=== PATIENT | male | born 1995 | race Caucasian/White ===

== ENCOUNTER 2022-02-25 09:32 | Inpatient (IN) | payer OTHER ==
[2022-02-25 10:58] LABS: ALT 27 U/L (4-49); AST 25 U/L (17-59); African American GFR (CKD) >90 (>60 ml/min/1.73 sqM); Albumin 4.6 g/dL (3.5-5.0); Alkaline Phosphatase 71 U/L (38-126); Anion Gap 9 mmol/L; Blood Urea Nitrogen 12 mg/dL (9-20); Calcium 9.2 mg/dL (8.4-10.2); Carbon Dioxide 25 mmol/L (22-30); Chloride 104 mmol/L (98-107); Glucose 144 mg/dL (74-99); Non-African American GFR(CKD) >90 (>60 ml/min/1.73 sqM); Potassium 3.5 mmol/L (3.5-5.1); Sodium 138 mmol/L (137-145); Total Bilirubin 1.4 mg/dL (0.2-1.3); Total Protein 7.5 g/dL (6.3-8.2)
[2022-02-25 11:12] LABS: Partial Thromboplastin Time 24.3 sec (22.0-30.0); Prothrombin Time 10.7 sec (9.0-12.0)
[2022-02-25 11:13] LABS: Anisocytosis Slight; HCT 34.5 % (39.0-53.0); MCH 31.3 pg (25.0-35.0); MCHC 34.7 g/dL (31.0-37.0); MCV 90.3 fL (80.0-100.0); Mean Platelet Volume 8.9; Poikilocytosis Slight; RBC 3.82 m/uL (4.30-5.90); RDW 17.2 % (11.5-15.5)
[2022-02-25 11:37] LABS: Platelet Count 36 k/uL (150-450)
--- NOTE | 2022-02-25 11:43 | XR ---
EXAMINATION TYPE: XR chest 2V DATE OF EXAM: 02/25/2022 COMPARISON: Chest x-ray September 11, 2011 HISTORY: Coughing and shortness of breath. TECHNIQUE: Frontal and lateral views of the chest are obtained. FINDINGS: There is no suspicious new focal air space opacity, pleural effusion, or pneumothorax seen . The cardiac silhouette size remains within normal limits. The osseous structures are intact. IMPRESSION: No new suspicious acute pulmonary process.
[2022-02-25 12:16] LABS: Band Neutrophils % 1 %; Metamyelocytes # (M) 0.26 k/uL (0); Metamyelocytes % 1 %; Myelocytes # (M) 0.26 k/uL (0); Myelocytes % 1 %; Neutrophils % (M) 12 %
[2022-02-25 12:30] LABS: Blast Cells # (M) 9.69 k/uL (0); Eosinophils # (M) 0.51 k/uL (0-0.7); Lymphocytes # (M) 6.38 k/uL (1.0-4.8); Monocytes # (M) 5.87 k/uL (0-1.0); Nucleated Red Blood Cells 1 /100 WBC (0-0); Total Cells Counted 200; WBC 25.5 k/uL (3.8-10.6)
[2022-02-25 12:33] LABS: Polychromasia Present
--- NOTE | 2022-02-25 12:47 | ED ---
Recheck HPI - General Chief Complaint: Recheck/Abnormal Lab/Rx Stated Complaint: abnormal labs Time Seen by Provider: 02/25/22 10:05 Source: patient, family, RN notes reviewed Mode of arrival: wheelchair Limitations: no limitations - History of Present Illness Initial Comments: This is a 26-year-old male who presents to the emergency department for low p latelets. He was told that on lab work yesterday, his platelet count was low and he needed to come to the emergency department for further evaluation. He was diagnosed with pneumonia clinically a week ago and given a course of Augmentin, steroids, and an inhaler. Patient states that his breathing is improved. He also states that he is feeling very weak. There is a family history of ITP in his grandmother. He has noted over the last week that he has been developing red spots on his chest and arms. Patient denies any fevers, chills, sore throat, visual changes, cough, dyspnea, chest pain, palpitations, abdominal pain, nausea, vomiting, diarrhea, constipation, dysuria, hematuria, back pain, or headaches. MD Complaint: abnormal lab - Related Data Home Medications Medication Instructions Recorded Confirmed No Known Home Medications 02/25/22 02/25/22 Allergies Allergy/AdvReac Type Severity Reaction Status Date / Time No Known Allergies Allergy Verified 02/25/22 13:16 Review of Systems ROS Statement: Those systems with pertinent positive or pertinent negative responses have been documented in the HPI. ROS Other: All systems not noted in ROS Statement are negative. Past Medical History Past Medical History: No Reported History History of Any Multi-Drug Resistant Organisms: None Reported Past Surgical History: Adenoidectomy, Tonsillectomy Past Psychological History: Anxiety Smoking Status: Never smoker Past Alcohol Use History: None Reported, Occasional Past Drug Use History: None Reported General Exam Limitations: no limitations General appearance: alert, anxious Head exam: Present: atraumatic, normocephalic, normal inspection ENT exam: Present: normal exam, mucous membranes moist Neck exam: Present: normal inspection. Absent: tenderness, meningismus, lymphadenopathy Respiratory exam: Present: normal lung sounds bilaterally. Absent: respiratory distress, wheezes, rales, rhonchi, stridor Cardiovascular Exam: Present: regular rate, normal rhythm, normal heart sounds. Absent: systolic murmur, diastolic murmur, rubs, gallop, clicks Neurological exam: Present: alert, oriented X3, CN II-XII intact Skin exam: Present: other (Petechiae on the chest and arms bilaterally) Course Vital Signs 02/25/22 02/25/22 09:54 11:18 Temperature 98.1 F Pulse Rate 119 H 115 H Respiratory 18 16 Rate Blood Pressure 150/87 172/88 O2 Sat by Pulse 98 96 Oximetry Procedures - [place] Protocol (Time Out) Nurse: Laura Rosas Medical Decision Making - Medical Decision Making This is a 26-year-old male who presents to the emergency department for thrombocytopenia. Lab work was redrawn in the emergency department revealing blast cells of 38. We were contacted by the lab, who notes concern for a new diagnosis of leukemia. I spoke with hematology/oncology, Dr. Almanza, who requested the patient be admitted with plan for bone marrow biopsy on 02/27/2022. There are strict instructions to avoid any sort of steroid or platelet transfusions for the mean time. This case was discussed in detail with the attending ED physician. Presentation, findings, and treatment plan discussed in detail as well. - Lab Data Result diagrams: 02/25/22 10:35 02/25/22 10:35 Lab Results 02/25/22 02/25/22 02/25/22 Range/Units 10:35 10:35 10:35 WBC 25.5 H (3.8-10.6) k/uL RBC 3.82 L (4.30-5.90) m/uL Hgb 12.0 L (13.0-17.5) gm/dL Hct 34.5 L (39.0-53.0) % MCV 90.3 (80.0-100.0) fL MCH 31.3 (25.0-35.0) pg MCHC 34.7 (31.0-37.0) g/dL RDW 17.2 H (11.5-15.5) % Plt Count 36 L (150-450) k/uL MPV 8.9 Neutrophils % (Manual) 12 % Band Neuts % (Manual) 1 % Lymphocytes % (Manual) 25 % Monocytes % (Manual) 23 % Eosinophils % (Manual) 2 % Metamyelocytes % 1 % Myelocytes % 1 % Blast Cells % 38 H* % Neutrophils # (Manual) 3.30 (1.3-7.7) k/uL Lymphocytes # (Manual) 6.38 H (1.0-4.8) k/uL Monocytes # (Manual) 5.87 H (0-1.0) k/uL Eosinophils # (Manual) 0.51 (0-0.7) k/uL Metamyelocytes # (Man) 0.26 H (0) k/uL Myelocytes # (Manual) 0.26 H (0) k/uL Blast Cells # (Man) 9.69 H (0) k/uL Nucleated RBCs 1 H (0-0) /100 WBC Manual Slide Review Performed Polychromasia Present Poikilocytosis Slight Anisocytosis Slight PT 10.7 (9.0-12.0) sec INR 1.0 (<1.2) APTT 24.3 (22.0-30.0) sec Sodium 138 (137-145) mmol/L Potassium 3.5 (3.5-5.1) mmol/L Chloride 104 (98-107) mmol/L Carbon Dioxide 25 (22-30) mmol/L Anion Gap 9 mmol/L BUN 12 (9-20) mg/dL Creatinine 0.94 (0.66-1.25) mg/dL Est GFR (CKD-EPI)AfAm >90 (>60 ml/min/1.73 sqM) Est GFR (CKD-EPI)NonAf >90 (>60 ml/min/1.73 sqM) Glucose 144 H (74-99) mg/dL Calcium 9.2 (8.4-10.2) mg/dL Total Bilirubin 1.4 H (0.2-1.3) mg/dL AST 25 (17-59) U/L ALT 27 (4-49) U/L Alkaline Phosphatase 71 (38-126) U/L Total Protein 7.5 (6.3-8.2) g/dL Albumin 4.6 (3.5-5.0) g/dL Disposition Clinical Impression: Leukocytosis, Thrombocytopenia Disposition: ADMITTED IP TO THIS HOSP Referrals: Usama Camejo MD [Primary Care Provider] - 1-2 days
[2022-02-25] MEDS ORDERED: NALOXONE 0.4 MG/ML 1 ML VIAL IV PRN (12:55)
[2022-02-25] MEDS ORDERED: LORazepam 0.5 MG TAB PO PRN (12:55)
[2022-02-25] MEDS ORDERED: ONDANSETRON 4 MG/2 ML VIAL IVP PRN (12:55)
--- NOTE | 2022-02-25 13:34 | P.HPIM ---
History of Present Illness H&P Date: 02/25/22 Chief Complaint: Sent in by PCP for abnormal blood work Patient is a 26-year-old male with no significant past medical history who went to go see his PCP because he has been battling a cold for a month and had chest pains. He was diagnosed with pneumonia and was started on antibiotics which he completed. PCP and also ordered blood work that showed thrombocytopenia so was told to come into the ED. In the ED labs revealed platelet count of 36 and WBC 25.5 with 38% blasts and predominantly lymphocytes. Chest x-ray was negative for any acute process. ED personnel did speak with oncology who recommended to admit the patient and not to give him any platelet transfusion or steroids and plan is for biopsy on Sunday. Patient states that he did take one dose of prednisone yesterday that was prescribed by his PCP. Patient states that he does have chills but denies any fevers. He denies any diaphoresis at nighttime. Review of Systems 10 ROS reviewed and are negative except as noted in HPI Past Medical History Past Medical History: No Reported History History of Any Multi-Drug Resistant Organisms: None Reported Past Surgical History: Adenoidectomy, Tonsillectomy Past Psychological History: Anxiety Smoking Status: Never smoker Past Alcohol Use History: None Reported, Occasional Past Drug Use History: None Reported Medications and Allergies Home Medications Medication Instructions Recorded Confirmed Type No Known Home Medications 02/25/22 02/25/22 History Allergies Allergy/AdvReac Type Severity Reaction Status Date / Time No Known Allergies Allergy Verified 02/25/22 13:16 Physical Exam Osteopathic Statement: *. No significant issues noted on an osteopathic structural exam other than those noted in the History and Physical/Consult. Vitals: Vital Signs Temp Pulse Resp BP Pulse Ox 02/25/22 11:18 115 H 16 172/88 96 02/25/22 09:54 98.1 F 119 H 18 150/87 98 Intake and Output 02/24/22 02/25/22 02/25/22 22:59 06:59 14:59 Other: Weight 115.666 kg General: [Alert and oriented, well nourished, no acute distress]. Eye: [PERRL, EOMI, normal conjunctiva]. HENT: [Normocephalic, clear tympanic membranes, normal hearing, moist oral mucosa, no scleral icterus, no sinus tenderness]. Neck: [Supple, non-tender, no carotid bruits, no JVD, no lymphadenopathy]. Lungs: [Clear to auscultation and percussion, non-labored respiration]. Heart: [Normal rate, regular rhythm, no murmur, gallop or edema]. Abdomen: [Soft, non-tender, non-distended, normal bowel sounds, no masses]. Musculoskeletal: [Normal range of motion and strength, no tenderness or sw elling]. Skin: [Skin is warm, dry and pink, no rashes or lesions]. Neurologic: [Awake, alert, and oriented X3, CN II-XII intact]. Psychiatric: [Cooperative, appropriate mood and affect]. Results CBC & Chem 7: 02/25/22 10:35 02/25/22 10:35 Labs: Abnormal Lab Results - Last 24 Hours (Table) 02/25/22 02/25/22 Range/Units 10:35 10:35 WBC 25.5 H (3.8-10.6) k/uL RBC 3.82 L (4.30-5.90) m/uL Hgb 12.0 L (13.0-17.5) gm/dL Hct 34.5 L (39.0-53.0) % RDW 17.2 H (11.5-15.5) % Plt Count 36 L (150-450) k/uL Blast Cells % 38 H* % Lymphocytes # (Manual) 6.38 H (1.0-4.8) k/uL Monocytes # (Manual) 5.87 H (0-1.0) k/uL Metamyelocytes # (Man) 0.26 H (0) k/uL Myelocytes # (Manual) 0.26 H (0) k/uL Blast Cells # (Man) 9.69 H (0) k/uL Nucleated RBCs 1 H (0-0) /100 WBC Glucose 144 H (74-99) mg/dL Total Bilirubin 1.4 H (0.2-1.3) mg/dL Assessment and Plan Assessment: #Leukocytosis with elevated blast cells #Thrombocytopenia -Concerning for acute leukemia -Oncology consult -Plan for biopsy on Sunday -Per oncology instructions no steroids and no platelet transfusion CODE STATUS:full code DVT prophylaxis: mechanical Discussed with: Patient, ER, rn Anticipated length of stay > than [address]: home A total of 75 minutes was spent on the care of this complex patient more than 50% of the time was spent in counseling and care coordination.
--- NOTE | 2022-02-25 20:45 | P.CONS ---
History of Present Illness - Reason for Consult Consult date: 02/25/22 Blasts Requesting physician: Ainsley Campos - Chief Complaint URI that wont get better - History of Present Illness Akira is a pleasant 26 year old male patient presenting to ER at the direction of PCP for Thrombocytopenia and Leukocytosis, Differential shows blasts of 36%. He originally seen PCP last month for URI, treated with antibiotics and steroids, although was not improving so he represented for follow-up with PCP who paz labs and then directed him here for further eval when they did not improve. Mom at bedside. Akira is otherwise healthy without any significant personal history. Review of Systems All systems: negative Constitutional: Reports as per HPI Past Medical History Past Medical History: No Reported History History of Any Multi-Drug Resistant Organisms: None Reported Past Surgical History: Adenoidectomy, Tonsillectomy Past Psychological History: Anxiety Smoking Status: Never smoker Past Alcohol Use History: None Reported, Occasional Past Drug Use History: None Reported - Past Family History Mother Family Medical History: Cancer Additional Family Medical History / Comment(s): breast CA Medications and Allergies Home Medications Medication Instructions Recorded Confirmed Type No Known Home Medications 02/25/22 02/25/22 History Allergies Allergy/AdvReac Type Severity Reaction Status Date / Time No Known Allergies Allergy Verified 02/25/22 13:16 Physical Exam Vitals: Vital Signs Temp Pulse Pulse Resp BP BP Pulse Ox 02/25/22 13:45 98.7 F 94 16 140/88 98 02/25/22 11:18 115 H 16 172/88 96 02/25/22 09:54 98.1 F 119 H 18 150/87 98 Intake and Output 02/24/22 02/25/22 02/25/22 22:59 06:59 14:59 Other: Weight 115.666 kg - Constitutional General appearance: cooperative - EENT Eyes: EOMI ENT: NA/AT - Respiratory Respiratory: bilateral: CTA - Cardiovascular Rhythm: regular - Gastrointestinal General gastrointestinal: soft - Integumentary Integumentary: pale - Neurologic Neurologic: CNII-XII intact - Musculoskeletal Musculoskeletal: generalized weakness, strength equal bilaterally - Psychiatric Psychiatric: A&O x's 3, appropriate affect, intact judgment & insight Results CBC & Chem 7: 02/25/22 10:35 02/25/22 10:35 Labs: Abnormal Lab Results - Last 24 Hours (Table) 02/25/22 02/25/22 Range/Units 10:35 10:35 WBC 25.5 H (3.8-10.6) k/uL RBC 3.82 L (4.30-5.90) m/uL Hgb 12.0 L (13.0-17.5) gm/dL Hct 34.5 L (39.0-53.0) % RDW 17.2 H (11.5-15.5) % Plt Count 36 L (150-450) k/uL Blast Cells % 38 H* % Lymphocytes # (Manual) 6.38 H (1.0-4.8) k/uL Monocytes # (Manual) 5.87 H (0-1.0) k/uL Metamyelocytes # (Man) 0.26 H (0) k/uL Myelocytes # (Manual) 0.26 H (0) k/uL Blast Cells # (Man) 9.69 H (0) k/uL Nucleated RBCs 1 H (0-0) /100 WBC Glucose 144 H (74-99) mg/dL Total Bilirubin 1.4 H (0.2-1.3) mg/dL Chest x-ray: report reviewed Assessment and Plan (1) Leukocytosis Narrative/Plan: Increased Monocytes, Myelocytes,Lymphocytes, increased Blasts on peripheral smear, Current Visit: Yes Status: Acute Code(s): D72.829 - ELEVATED WHITE BLOOD CELL COUNT, UNSPECIFIED SNOMED Code(s): 470305874 (2) Thrombocytopenia Narrative/Plan: NO ASA, AC therapy, NSAIDS. Current Visit: Yes Status: Acute Code(s): D69.6 - THROMBOCYTOPENIA, UNSPECIFIED SNOMED Code(s): 897672539 Plan: Unfortunately picture is concerning for a primary bone marrow malignancy, Bone marrow biopsy will be needed to obtain a definitive diagnosis and will attempt to set up on Sunday around noon versus Sunday in am. We discussed BM biopsy, concerns, and expected result times. All questions answered
[2022-02-26 07:36] LABS: Anisocytosis Slight; HCT 32.7 % (39.0-53.0); MCH 31.2 pg (25.0-35.0); MCHC 33.7 g/dL (31.0-37.0); MCV 92.7 fL (80.0-100.0); Mean Platelet Volume 8.3; Poikilocytosis Slight; RBC 3.53 m/uL (4.30-5.90); RDW 17.4 % (11.5-15.5)
[2022-02-26 07:41] LABS: Platelet Count 29 k/uL (150-450)
[2022-02-26 08:49] LABS: Myelocytes % 2 %; Neutrophils % (M) 2 %; Nucleated Red Blood Cells 1 /100 WBC (0-0); Total Cells Counted 200
[2022-02-26 08:50] LABS: Blast Cells # (M) 9.36 k/uL (0); Eosinophils # (M) 1.56 k/uL (0-0.7); Lymphocytes # (M) 7.54 k/uL (1.0-4.8); Monocytes # (M) 6.76 k/uL (0-1.0); Myelocytes # (M) 0.52 k/uL (0); Neutrophils # (M) 0.52 k/uL (1.3-7.7)
[2022-02-26 08:52] LABS: Polychromasia Present
--- NOTE | 2022-02-26 08:56 | US ---
EXAMINATION TYPE: US abdomen complete DATE OF EXAM: 02/26/2022 COMPARISON: NONE CLINICAL HISTORY: Assess liver and Spleen Concern Malignancy. Leukocytosis. Pt states no symptoms EXAM MEASUREMENTS: Liver Length: 15.4 cm Gallbladder Wall: 0.23 cm CBD: 0.25 cm Spleen: 15.4 cm Right Kidney: 10.7 x 5.8 x 5.3 cm Left Kidney: 11.3 x 6.1 x 6.2 cm Pancreas: Obscured by bowel gas Liver: heterogeneous suggestive of fatty infiltration Gallbladder: non-shadowing echogenic foci measuring 0.5 x 0.5 x 0.6 cm Evidence for sonographic Florence's sign: No CBD: wnl Spleen: Spleen is slightly enlarged measuring 15.4 cm Right Kidney: Dilated renal pelvis measuring 1.1cm Left Kidney: wnl Upper IVC: wnl Abd Aorta: wnl Pancreas suboptimally seen on initial images due to overlying bowel gas. The visualized liver is hete rogeneously hyperechoic. Evaluation for focal masses suboptimal due to the heterogeneity. The intrahe patic portion of the IVC and visualized abdominal aorta are within normal limits. Gallbladder has 5 m m nonshadowing hyperechoic focus favoring polyp. No shadowing mobile gallstones. No biliary dilatatio n. The spleen is unremarkable. Kidneys are symmetric and normal in size. Prominent central right r enal pelvis without calyceal dilatation is consistent with extrarenal pelvis. Splenomegaly is seen me asuring 15.4 cm in long axis without focal splenic mass. No surrounding ascites. IMPRESSION: Confirmation of splenomegaly. Heterogeneous hyperechoic appearance of liver is consistent with diffuse fatty infiltration and/or underlying hepatocellular disease. Liver size felt within nor mal limits. No ascites currently.
[2022-02-26 10:09] LABS: African American GFR (CKD) 119.9 (60.0-200.0); Anion Gap 11.4 mmol/L (10.00-18.00); BUN/Creat Ratio 11.9 Ratio (12.00-20.00); Blood Urea Nitrogen 11.9 mg/dL (9.0-27.0); Calcium 9.2 mg/dL (8.7-10.3); Carbon Dioxide 23.6 mmol/L (20.0-27.5); Magnesium 2.2 mg/dL (1.5-2.4); Non-African American GFR(CKD) 103.4 (60.0-200.0); Phosphorus 4.4 mg/dL (2.4-5.1); Potassium 4.2 mmol/L (3.5-5.5); Uric Acid 6.5 mg/dL (3.7-8.7)
--- NOTE | 2022-02-26 13:13 | P.PN ---
Subjective Progress Note Date: 02/26/22 Principal diagnosis: Leukocytosis with elevated blast cells and thrombocytopenia Patient is having any acute complaints this morning. Mother was at bedside. Mother and patient are aware that he may have leukemia and understand that it is a type of blood cancer. Objective - Vital Signs Vital signs: Vital Signs Temp 98 F 02/26/22 04:47 Pulse 92 02/26/22 04:47 Resp 18 02/26/22 04:47 BP 162/80 02/26/22 04:47 Pulse Ox 99 02/26/22 04:47 Intake & Output 02/25/22 02/26/22 02/26/22 18:59 06:59 18:59 Intake Total 300 540 118 Balance 300 540 118 Weight 115.666 kg Intake: Oral 300 540 118 Other: Voiding Method Toilet Toilet # Voids 4 - Exam General examination - Alert and Oriented 3 in NAD Heart - + S1S2 no murmurs Lungs - Clear to auscultation Abdomen soft NT ND +ve BS Extremities - No edema BRICK SHADER - Moving all 4 extremities spontaneously Psych - Calm and cooperative - Labs CBC & Chem 7: 02/26/22 06:41 02/26/22 06:41 Labs: Abnormal Lab Results - Last 24 Hours (Table) 02/26/22 02/26/22 Range/Units 06:41 06:41 WBC 26.0 H (3.8-10.6) k/uL RBC 3.53 L (4.30-5.90) m/uL Hgb 11.0 L (13.0-17.5) gm/dL Hct 32.7 L (39.0-53.0) % RDW 17.4 H (11.5-15.5) % Plt Count 29 L (150-450) k/uL Blast Cells % 36 H* % Neutrophils # (Manual) 0.52 L (1.3-7.7) k/uL Lymphocytes # (Manual) 7.54 H (1.0-4.8) k/uL Monocytes # (Manual) 6.76 H (0-1.0) k/uL Eosinophils # (Manual) 1.56 H (0-0.7) k/uL Myelocytes # (Manual) 0.52 H (0) k/uL Blast Cells # (Man) 9.36 H (0) k/uL Nucleated RBCs 1 H (0-0) /100 WBC BUN/Creatinine Ratio 11.90 L (12.00-20.00) Ratio Lactate Dehydrogenase 737 H (120-246) U/L Assessment and Plan Assessment: #Leukocytosis with elevated blast cells #Thrombocytopenia -Concerning for acute leukemia -Oncology consult -Plan for biopsy on Sunday -Per oncology instructions no steroids and no platelet transfusion CODE STATUS:full code DVT prophylaxis: mechanical Discussed with: Patient, ER, rn Anticipated length of stay > than [address]: home A total of 75 minutes was spent on the care of this complex patient more than 50% of the time was spent in counseling and care coordination.
[2022-02-26 22:59] LABS: Rheumatoid Factor, Qnt <10 IU/mL (0-15)
[2022-02-27 06:45] LABS: Anisocytosis Slight; HCT 29.5 % (39.0-53.0); HGB 10.2 gm/dL (13.0-17.5); MCH 31.7 pg (25.0-35.0); MCHC 34.5 g/dL (31.0-37.0); MCV 91.8 fL (80.0-100.0); Platelet Count 31 k/uL (150-450); Poikilocytosis Slight; RBC 3.22 m/uL (4.30-5.90); RDW 17.1 % (11.5-15.5); WBC 18.8 k/uL (3.8-10.6)
[2022-02-27 10:23] LABS: Prothrombin Time 11.1 sec (9.0-12.0)
--- NOTE | 2022-02-27 10:56 | P.PN ---
Subjective Progress Note Date: 02/27/22 Principal diagnosis: Leukocytosis with elevated blast cells and thrombocytopenia Mom is wondering why the patient is so fatigued. She is also wondering why he has a persistent cough. I told him that it is likely due to leukemia which is being worked up for. I also discussed the case with oncology who said they will try to do biopsy today or tomorrow. Objective - Vital Signs Vital signs: Vital Signs Temp 98.4 F 02/27/22 05:00 Pulse 86 02/27/22 05:00 Resp 18 02/27/22 05:00 BP 135/88 02/27/22 05:00 Pulse Ox 99 02/27/22 05:00 FiO2 Intake & Output 02/26/22 02/27/22 02/27/22 18:59 06:59 18:59 Intake Total 1436 0 10 Balance 1436 0 10 Intake: IV 10 Invasive Line 1 10 Oral 1436 0 Other: Voiding Method Toilet # Voids 4 2 - Exam General examination - Alert and Oriented 3 in NAD Heart - + S1S2 no murmurs Lungs - Clear to auscultation Abdomen soft NT ND +ve BS Extremities - No edema JUVENILE JUSTICE SPECIALIST - Moving all 4 extremities spontaneously Psych - Calm and cooperative - Labs CBC & Chem 7: 02/27/22 05:38 02/26/22 06:41 Labs: Abnormal Lab Results - Last 24 Hours (Table) 02/25/22 02/26/22 02/27/22 Range/Units 10:35 06:41 05:38 WBC 18.8 H (3.8-10.6) k/uL RBC 3.22 L (4.30-5.90) m/uL Hgb 10.2 L (13.0-17.5) gm/dL Hct 29.5 L (39.0-53.0) % RDW 17.1 H (11.5-15.5) % Plt Count 31 L (150-450) k/uL Pathologist Review See comment A C-Reactive Protein 1.00 H (0.00-0.80) mg/dL Assessment and Plan Assessment: #Leukocytosis with elevated blast cells #Thrombocytopenia -Concerning for acute leukemia -Oncology consult -Plan for biopsy on today or tomorrow by oncology -Per oncology instructions no steroids and no platelet transfusion CODE STATUS:full code DVT prophylaxis: mechanical Discussed with: Patient, ER, rn Anticipated length of stay > than [address]: home A total of 75 minutes was spent on the care of this complex patient more than 50% of the time was spent in counseling and care coordination.
[2022-02-27 11:00] LABS: Band Neutrophils % 1 %; Basophils # (M) 0.19 k/uL (0-0.2); Blast Cells # (M) 2.82 k/uL (0); Myelocytes # (M) 0.19 k/uL (0); Myelocytes % 1 %; Neutrophils % (M) 17 %; Nucleated Red Blood Cells 0 /100 WBC (0-0); Plasma Cells # (M) 0.19 k/uL (0)
[2022-02-27] MEDS ORDERED: PROPOFOL 10 MG/ML 20 ML VIAL IV ONE (12:02)
[2022-02-27] MEDS ORDERED: LACTATED RINGERS 1,000 ML IV ONE (12:04)
[2022-02-27 12:08] LABS: Lymphocytes # (M) 7.52 k/uL (1.0-4.8); Metamyelocytes # (M) 0.19 k/uL (0); Metamyelocytes % 1 %; Monocytes # (M) 3.57 k/uL (0-1.0); Total Cells Counted 200
--- NOTE | 2022-02-27 12:32 | P.PCN ---
Date of Procedure: 02/27/22 Preoperative Diagnosis: Leucocytosis, bicytopenia, suspected acute leukemia Postoperative Diagnosis: Same Procedure(s) Performed: Bone marrow aspiration and biopsy Anesthesia: MAC Surgeon: Ganesh Keith Brake Repairer #1: Stated None Estimated Blood Loss (ml): 2 Pathology: other Condition: stable Disposition: floor Indications for Procedure: Patient presenting with leukocytosis, lost her peripheral smear, bicytopenia, suspected acute leukemia procedure done for diagnosis. Operative Findings: Adequate samples Description of Procedure: The procedure was discussed in detail with the patient and his family on the floor. Informed consent was obtained from the floor. He then presented to the outpatient endoscopy suite.In the left lateral decubitus position. The area over both posterior iliac crest was prepped with chlorhexidine and sterile draping. IV sedation initiated. Local anesthesia was administered to the right posterior iliac crest. A Jamshidi needle was then inserted and bone marrow asp irate and biopsy obtained. On withdrawal of the needle hemostasis was easily achieved. Blood loss was minimal and recovery from sedation was satisfactory, other than some issues with upper airway secretions, that were appropriately managed by anesthesia.. He appeared to have tolerated the procedure well without any obvious immediate complications.
[2022-02-27 13:08] LABS: Reticulocyte % 3.8 % (0.5-2.0)
[2022-02-27] MEDS: guaiFENesin SYRUP 100MG/5ML 200 MG/10 ML CUP PO PRN ×2 (13:20→19:12)
--- NOTE | 2022-02-27 13:40 | P.PN ---
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 Dr. Keith had a long discussion with patient and mother and father regarding likelihood of acute leukemia. Bone marrow was also performed today Objective - Vital Signs Vital signs: Vital Signs Temp 98.5 F 02/27/22 12:57 Pulse 109 H 02/27/22 12:57 Resp 18 02/27/22 12:57 BP 146/76 02/27/22 12:57 Pulse Ox 93 L 02/27/22 12:57 FiO2 Intake & Output 02/26/22 02/27/22 02/27/22 18:59 06:59 18:59 Intake Total 1436 0 210 Balance 1436 0 210 Intake: IV 210 Invasive Line 1 10 Oral 1436 0 Other: Voiding Method Toilet # Voids 4 2 - Labs CBC & Chem 7: 02/27/22 05:38 02/26/22 06:41 Labs: Abnormal Lab Results - Last 24 Hours (Table) 02/25/22 02/26/22 02/27/22 Range/Units 10:35 06:41 05:38 WBC 18.8 H (3.8-10.6) k/uL RBC 3.22 L (4.30-5.90) m/uL Hgb 10.2 L (13.0-17.5) gm/dL Hct 29.5 L (39.0-53.0) % RDW 17.1 H (11.5-15.5) % Plt Count 31 L (150-450) k/uL Blast Cells % 15 H* % Lymphocytes # (Manual) 7.52 H (1.0-4.8) k/uL Monocytes # (Manual) 3.57 H (0-1.0) k/uL Eosinophils # (Manual) 1.50 H (0-0.7) k/uL Metamyelocytes # (Man) 0.19 H (0) k/uL Myelocytes # (Manual) 0.19 H (0) k/uL Blast Cells # (Man) 2.82 H (0) k/uL Plasma Cell # (Manual) 0.19 H (0) k/uL Pathologist Review See comment A Retic Count (0.5-2.0) % C-Reactive Protein 1.00 H (0.00-0.80) mg/dL 02/27/22 Range/Units 05:38 WBC (3.8-10.6) k/uL RBC (4.30-5.90) m/uL Hgb (13.0-17.5) gm/dL Hct (39.0-53.0) % RDW (11.5-15.5) % Plt Count (150-450) k/uL Blast Cells % % Lymphocytes # (Manual) (1.0-4.8) k/uL Monocytes # (Manual) (0-1.0) k/uL Eosinophils # (Manual) (0-0.7) k/uL Metamyelocytes # (Man) (0) k/uL Myelocytes # (Manual) (0) k/uL Blast Cells # (Man) (0) k/uL Plasma Cell # (Manual) (0) k/uL Pathologist Review Retic Count 3.8 H (0.5-2.0) % C-Reactive Protein (0.00-0.80) mg/dL Assessment and Plan (1) Leukocytosis Narrative/Plan: Increased Monocytes, Myelocytes,Lymphocytes, increased Blasts on peripheral smear, Current Visit: Yes Status: Acute Code(s): D72.829 - ELEVATED WHITE BLOOD CELL COUNT, UNSPECIFIED SNOMED Code(s): 320159944 (2) Thrombocytopenia Narrative/Plan: NO ASA, AC therapy, NSAIDS. Current Visit: Yes Status: Acute Code(s): D69.6 - THROMBOCYTOPENIA, UNSPE CIFIED SNOMED Code(s): 723868314 (3) Coagulopathy Current Visit: Yes Status: Acute Code(s): D68.9 - COAGULATION DEFECT, UNSPECIFIED SNOMED Code(s): 63011154 Plan: Recheck Coags, Uric acid, LDD and CBC CMP daily Bone marrow biopsy today Long discussion with patient and family regarding liklihood of an acute leukemia , plan to obtain echo and picc in preparation for induction. Dr. Waller: I have completed the full history and physical and developed the above impression and plan, agree with dictation, dictated as a scribe.
[2022-02-27 14:26] LABS: T Helper Cell (CD4) >3000 cell/ul (443-1471); T Helper Cell (CD4) % 60 % (35-66); T Suppressor Cell (CD8) 963 cell/ul (190-832); T Suppressor Cell (CD8) % 18 % (9-37); T4/T8 Ratio (CD4:CD8) 3.4 (1.0-3.7)
[2022-02-27 14:58] LABS: Prothrombin Time 11.1 sec (9.0-12.0)
--- NOTE | 2022-02-27 18:49 | CA ---
Transthoracic Echo Report Name: Akira Sultana Age: 26 Gender: M : 1995 Exam Date: 02/27/2022 15:15 Exam Location: [facility] Ht (in): 62 Wt (lb): 255 Ordering Physician: Jasmyne Casillas Attending/Referring Phys: Solution Developer Ivonne Scott RDCS Procedure CPT: Indications: preparation for chemo Cardiac Hx: Pre Chemo Technical Quality: Good Contrast 1: N/A Total Dose (mL): Contrast 2: Total Dose (mL): MEASUREMENTS (Male / Female) Normal Values 2D ECHO LV Diastolic Diameter PLAX 4.9 cm 4.2 - 5.9 / 3.9 - 5.3 cm LV Systolic Diameter PLAX 3.6 cm IVS Diastolic Thickness 1.0 cm 0.6 - 1.0 / 0.6 - 0.9 cm LVPW Diastolic Thickness 1.2 cm 0.6 - 1.0 / 0.6 - 0.9 cm LV Relative Wall Thickness 0.4 RV Internal Dim ED PLAX 2.9 cm LA Systolic Diameter LX 3.7 cm 3.0 - 4.0 / 2.7 - 3.8 cm LA Volume 55.3 cm??? 18 - 58 / 22 - 52 cm??? M-MODE Aortic Root Diameter MM 3.2 cm LA Systolic Diameter MM 3.4 cm LA Ao Ratio MM 1.1 MV E Point Septal Separation 0.2 cm AV Cusp Separation MM 2.5 cm DOPPLER MV Area PHT 4.1 cm??? Mitral E Point Velocity 88.6 cm/s Mitral A Point Velocity 91.0 cm/s Mitral E to A Ratio 1.0 MV Deceleration Time 183.8 ms MV E' Velocity 7.6 cm/s Mitral E to MV E' Ratio 11.7 FINDINGS Left Ventricle Normal Left ventricular size, wall thickness, systolic function with no obvious regional wall motion abnormalities. Normal Left ventricular diastolic filling pattern. Right Ventricle Normal right ventricular size and function. Normal right ventricular size and function. Right ventricular systolic pressure within normal limits. Right Atrium Normal right atrial size. Left Atrium Left atrial size at the upper limits of normal. Mitral Valve Trace mitral regurgitation. Aortic Valve Trileaflet aortic valve. Tricuspid Valve Trace tricuspid regurgitation. Pulmonic Valve Structurally normal pulmonic valve. Pericardium No pleural effusion. Aorta Normal size aortic root and proximal ascending aorta. CONCLUSIONS Normal LV systolic function without segmental wall motion abnormalities Normal RV size and systolic function No significant valvular abnormalities Previewed by: Dr. Rip Campos MD (Electronically Signed) Final Date: 27 Feb 2022 18:48
[2022-02-28] MEDS: guaiFENesin SYRUP 100MG/5ML 200 MG/10 ML CUP PO PRN ×2 (08:48→18:46)
[2022-02-28 08:52] LABS: Vit B1(Thiamine) 82 ug/L (38-122)
[2022-02-28 09:28] LABS: Methylmalonic Acid 0.83 umol/L (<0.40)
[2022-02-28] MEDS ORDERED: LIDOCAINE 1% INJ 10MG/ML (5 ML VIAL-PF) SQ ONE (09:39)
[2022-02-28 09:47] LABS: Phosphorus 4.7 mg/dL (2.4-5.1)
[2022-02-28 09:54] LABS: African American GFR (CKD) 119.9 (60.0-200.0); Albumin 4.2 g/dL (3.8-4.9); Albumin/Globulin Ratio 1.83 (1.60-3.17); Anion Gap 11.5 mmol/L (10.00-18.00); BUN/Creat Ratio 12.7 Ratio (12.00-20.00); Blood Urea Nitrogen 12.7 mg/dL (9.0-27.0); Carbon Dioxide 23.5 mmol/L (20.0-27.5); Globulin 2.3 g/dL (1.6-3.3); Non-African American GFR(CKD) 103.4 (60.0-200.0); Potassium 4.2 mmol/L (3.5-5.5); Total Bilirubin 1.5 mg/dL (0.30-1.20); Total Protein 6.5 g/dL (6.2-8.2)
[2022-02-28 10:16] LABS: HCT 29.2 % (39.6-50.0); HGB 9.5 g/dL (13.0-17.0); MCH 30.6 pg (27.0-32.0); MCHC 32.5 g/dL (32.0-37.0); MCV 94.2 fL (80.0-97.0); NRBC Per 100 WBC 0.3 /100 WBCS (0.0-0.0); Platelet Count 25 X 10*3/uL (140-440); WBC 15.79 X 10*3/uL (4.50-10.00)
[2022-02-28 10:54] LABS: Basophils # (M) 0 X 10*3/uL (0.00-0.10); Eosinophils # (M) 0.79 X 10*3/uL (0.04-0.35); Immature Platelet Fraction 2.1 % (1.1-6.1); Lymphocytes # (M) 4.74 X 10*3/uL (0.90-5.00); Monocytes # (M) 3.16 X 10*3/uL (0.20-1.00); Neutrophils # (M) 1.26 X 10*3/uL (2.00-8.90); Neutrophils % (M) 8 %
--- NOTE | 2022-02-28 11:13 | IR ---
EXAMINATION TYPE: IR cvc insert >=5 years DATE OF EXAM: 02/28/2022 COMPARISON: NONE CLINICAL HISTORY: Leukemia Needs long-term intravenous access for chemotherapy. PROCEDURE: Hand hygiene obtained with soap and water and alcohol-based hand rub. After informed consent, the skin overlying the right basilic vein was localized with ultrasound and n oted to be compressible and patent. An ultrasound image was obtained and submitted on the patient's chart. The overlying skin was prepped and draped and Lidocaine was used for local anesthesia. A ski n antonella was made with a scalpel. Access was gained to the vein under ultrasound guidance with a 21 ga uge needle and a 0.018 inch wire was advanced. Access site was dilated with Peel-Away sheath and cat heter tailored to the appropriate length and advanced such that the distal tip is at the cavoatrial j unction. Spot image was obtained verifying placement. Catheter was fixed to the skin and a sterile dressing was placed following hemostasis. Catheter was aspirated and flushed with saline. Patient w as discharged in stable condition without complication.Maximal barrier technique is utilized. Ultras ound image is documented on the chart. Ultrasound used with sterile technique. Fluoro time and fluoroscopic images submitted to document procedure: 0.5 minutes fluoroscopy time, 48 intraoperative C-arm images document the procedure IMPRESSION: STATUS POST ULTRASOUND AND FLUOROSCOPIC GUIDED PICC LINE PLACEMENT, READY FOR USE. THIS PROCEDURE WAS PERFORMED BY THE UNDERSIGNED.
[2022-02-28] MEDS ORDERED: ALPRAZolam 0.25 MG TAB PO STA (11:53)
[2022-02-28] MEDS: SALT AND SODA MOUTHWASH 1,000 ML PO SCH ×3 (12:03→20:19)
[2022-02-28] MEDS: allopurinoL 300 MG TAB PO SCH (12:08)
--- NOTE | 2022-02-28 13:59 | P.PN ---
Subjective Progress Note Date: 02/28/22 Feels ok , no cp no abd pain, no n/v received PICC line Patient's mother at bedside Objective - Vital Signs Vital signs: Vital Signs Temp 98.3 F 02/28/22 11:51 Pulse 91 02/28/22 11:51 Resp 18 02/28/22 11:51 BP 145/87 02/28/22 11:51 Pulse Ox 95 02/28/22 11:51 FiO2 Intake & Output 02/27/22 02/28/22 02/28/22 18:59 06:59 18:59 Intake Total 810 260 Balance 810 260 Intake: IV 210 Invasive Line 1 10 Oral 600 260 Other: # Voids 2 - Exam General examination - Alert and Oriented 3 in NAD Heart - + S1S2 no murmurs Lungs - Clear to auscultation, no wheezing Abdomen soft NT ND +ve BS Extremities - No edema FRANCHISE BROKER - Moving all 4 extremities spontaneously Psych - Calm and cooperative - Labs CBC & Chem 7: 02/28/22 05:41 02/28/22 05:41 Labs: Abnormal Lab Results - Last 24 Hours (Table) 02/26/22 02/28/22 02/28/22 Range/Units 06:41 05:41 05:41 WBC 15.79 H (4.50-10.00) X 10*3/uL RBC 3.10 L (4.40-5.60) X 10*6/uL Hgb 9.5 L (13.0-17.0) g/dL Hct 29.2 L (39.6-50.0) % RDW 17.0 H (11.5-14.5) % Plt Count 25 L (140-440) X 10*3/uL Plt Count Comment A Absolute Nucleated RBC 0.05 H (0.00-0.00) X 10*3/uL Blast Cells % 37 H* (0-0) % Neutrophils # (Manual) 1.26 L (2.00-8.90) X 10*3/uL Monocytes # (Manual) 3.16 H (0.20-1.00) X 10*3/uL Eosinophils # (Manual) 0.79 H (0.04-0.35) X 10*3/uL NRBC/100 WBC Diff 0.3 H (0.0-0.0) /100 WBCS Total Bilirubin 1.50 H (0.30-1.20) mg/dL Lactate Dehydrogenase 629 H (120-246) U/L Methylmalonic Acid 0.83 H (<0.40) umol/L T-Suppressor Cells 963 H (190-832) cell/ul Absolute CD4 [place] >3000 H (443-1471) cell/ul Assessment and Plan Plan: #Leukocytosis with elevated blast cells Bone marrow biopsy today per hematology . WBC 15.7 #Thrombocytopenia, plts 25 -Concerning for acute leukemia -Oncology consult input appreciated -Per oncology instructions no steroids and no platelet transfusion discussed with patient and his mother at bedside CODE STATUS:full code DVT prophylaxis: mechanical Anticipated length of stay > than [address]: home
--- NOTE | 2022-02-28 16:39 | P.PN ---
Subjective Progress Note Date: 02/28/22 Principal diagnosis: Pancytopenia, peripheral blasts Pt is seen today in follow-up. No active bleeding, pain. Generalized weakness, mild shortness of breath on exertion. Objective - Vital Signs Vital signs: Vital Signs Temp 97.9 F 02/28/22 05:00 Pulse 92 02/28/22 05:00 Resp 16 02/28/22 05:00 BP 147/80 02/28/22 05:00 Pulse Ox 98 02/28/22 05:00 FiO2 Intake & Output 02/27/22 02/28/22 02/28/22 18:59 06:59 18:59 Intake Total 810 260 Balance 810 260 Intake: IV 210 Invasive Line 1 10 Oral 600 260 Other: # Voids 2 - Constitutional General appearance: Present: average body habitus, cooperative, no acute distress - EENT Eyes: Present: anicteric sclerae, EOMI ENT: Present: hearing grossly normal, normal oropharynx - Respiratory Details: resp even and unlabored - Cardiovascular Rhythm: regular Heart sounds: normal: S1, S2 Abnormal Heart Sounds: Absent: systolic murmur, diastolic murmur, rub, S3 Gallop, S4 Gallop, click, other - Peripheral edema leg Peripheral Edema: bilateral: None - Integumentary Integumentary: Present: pale - Neurologic Neurologic: Present: CNII-XII intact - Musculoskeletal Musculoskeletal: Present: strength equal bilaterally - Psychiatric Psychiatric: Present: A&O x's 3, appropriate affect, intact judgment & insight - Labs CBC & Chem 7: 02/28/22 05:41 02/28/22 05:41 Labs: Abnormal Lab Results - Last 24 Hours (Table) 02/26/22 02/27/22 02/27/22 Range/Units 06:41 05:38 05:38 WBC 18.8 H (3.8-10.6) k/uL RBC 3.22 L (4.30-5.90) m/uL Hgb 10.2 L (13.0-17.5) gm/dL Hct 29.5 L (39.0-53.0) % RDW 17.1 H (11.5-15.5) % Plt Count 31 L (150-450) k/uL Plt Count Comment Absolute Nucleated RBC (0.00-0.00) X 10*3/uL Blast Cells % 15 H* % Neutrophils # (Manual) (2.00-8.90) X 10*3/uL Lymphocytes # (Manual) 7.52 H (1.0-4.8) k/uL Monocytes # (Manual) 3.57 H (0-1.0) k/uL Eosinophils # (Manual) 1.50 H (0-0.7) k/uL Metamyelocytes # (Man) 0.19 H (0) k/uL Myelocytes # (Manual) 0.19 H (0) k/uL Blast Cells # (Man) 2.82 H (0) k/uL Plasma Cell # (Manual) 0.19 H (0) k/uL NRBC/100 WBC Diff (0.0-0.0) /100 WBCS Retic Count 3.8 H (0.5-2.0) % Total Bilirubin (0.30-1.20) mg/dL Lactate Dehydrogenase (120-246) U/L Methylmalonic Acid 0.83 H (<0.40) umol/L T-Suppressor Cells 963 H (190-832) cell/ul Absolute CD4 [place] >3000 H (443-1471) cell/ul 02/28/22 02/28/22 Range/Units 05:41 05:41 WBC 15.79 H (3.8-10.6) k/uL RBC 3.10 L (4.30-5.90) m/uL Hgb 9.5 L (13.0-17.5) gm/dL Hct 29.2 L (39.0-53.0) % RDW 17.0 H (11.5-15.5) % Plt Count 25 L (150-450) k/uL Plt Count Comment A Absolute Nucleated RBC 0.05 H (0.00-0.00) X 10*3/uL Blast Cells % 37 H* % Neutrophils # (Manual) 1.26 L (2.00-8.90) X 10*3/uL Lymphocytes # (Manual) (1.0-4.8) k/uL Monocytes # (Manual) 3.16 H (0-1.0) k/uL Eosinophils # (Manual) 0.79 H (0-0.7) k/uL Metamyelocytes # (Man) (0) k/uL Myelocytes # (Manual) (0) k/uL Blast Cells # (Man) (0) k/uL Plasma Cell # (Manual) (0) k/uL NRBC/100 WBC Diff 0.3 H (0.0-0.0) /100 WBCS Retic Count (0.5-2.0) % Total Bilirubin 1.50 H (0.30-1.20) mg/dL Lactate Dehydrogenase 629 H (120-246) U/L Methylmalonic Acid (<0.40) umol/L T-Suppressor Cells (190-832) cell/ul Absolute CD4 [place] (443-1471) cell/ul - Imaging and Cardiology ECHO report reviewed Assessment and Plan (1) Leukocytosis Current Visit: Yes Status: Acute Priority: High Code(s): D72.829 - ELEVATED WHITE BLOOD CELL COUNT, UNSPECIFIED SNOMED Code(s): 616916723 (2) Bicytopenia Current Visit: Yes Status: Acute Priority: High Code(s): D75.89 - OTHER SPECIFIED DISEASES OF BLOOD AND BLOOD-FORMING ORGANS SNOMED Code(s): 05570096 Plan: Patient is status post bone marrow biopsy and aspirate. Concerns are for an acute leukemia. Did contact [place] pathology group twice today, the specimens have been accessioned in, but not reviewed by any Pathologist yet and at 1623 was told the Pathologist left for the day. In anticipation of induction chemotherapy patient has had an ECHO with no abnormalities reported an LVEF. He had a right upper extremity PICC line placed, site looks. CBC has been reviewed today. No transfusions needed today. CBC daily. Allopurinol has been started for prevention of tumor lysis syndrome. Xanax initiated for anxiety. Did discuss the case with the unit staff, [facility] chemotherapy infusion nurses available. Once Dr. Almanza has adequate information, orders will be sent to the unit as well as Pharmacy to begin induction chemotherapy. Spent about 30 minutes with the patient and his mother answering questions. All their questions were answered to the best of my ability. attests: I have preformed H&P, seen and examined patient, developed impression and plan of care. Discussed with dictator. Agree with documentation, dictated as a scribe.
[2022-02-28] MEDS: OLANZapine 2.5 MG TAB PO SCH (20:12)
[2022-03-01] MEDS: SALT AND SODA MOUTHWASH 1,000 ML PO SCH ×6 (00:16→23:32)
[2022-03-01 07:29] LABS: Anisocytosis Slight; HCT 31.6 % (39.0-53.0); HGB 10.6 gm/dL (13.0-17.5); MCH 31.1 pg (25.0-35.0); MCHC 33.6 g/dL (31.0-37.0); MCV 92.4 fL (80.0-100.0); Mean Platelet Volume 7.9; Poikilocytosis Slight; RBC 3.42 m/uL (4.30-5.90); RDW 17.9 % (11.5-15.5); WBC 15.9 k/uL (3.8-10.6)
[2022-03-01 07:37] LABS: Platelet Count 32 k/uL (150-450)
[2022-03-01 07:45] LABS: ALT 25 U/L (4-49); AST 22 U/L (17-59); African American GFR (CKD) >90 (>60 ml/min/1.73 sqM); Albumin 4.4 g/dL (3.5-5.0); Albumin/Globulin Ratio 1.6; Alkaline Phosphatase 74 U/L (38-126); Anion Gap 7 mmol/L; Blood Urea Nitrogen 11 mg/dL (9-20); Calcium 8.9 mg/dL (8.4-10.2); Carbon Dioxide 29 mmol/L (22-30); Chloride 103 mmol/L (98-107); Globulin 2.8 g/dL; Glucose 92 mg/dL (74-99); Non-African American GFR(CKD) >90 (>60 ml/min/1.73 sqM); Phosphorus 4.1 mg/dL (2.5-4.5); Potassium 3.9 mmol/L (3.5-5.1); Sodium 139 mmol/L (137-145); Total Bilirubin 1.7 mg/dL (0.2-1.3); Total Protein 7.2 g/dL (6.3-8.2); Uric Acid 5.7 mg/dL (3.5-8.5)
[2022-03-01 10:10] LABS: Eosinophils # (M) 1.27 k/uL (0-0.7); Lymphocytes # (M) 3.02 k/uL (1.0-4.8); Metamyelocytes # (M) 0.16 k/uL (0); Metamyelocytes % 1 %; Monocytes # (M) 4.45 k/uL (0-1.0); Neutrophils # (M) 1.91 k/uL (1.3-7.7); Neutrophils % (M) 12 %
[2022-03-01 10:11] LABS: Blast Cells # (M) 5.41 k/uL (0); Nucleated Red Blood Cells 0 /100 WBC (0-0); Total Cells Counted 200
[2022-03-01] MEDS: allopurinoL 300 MG TAB PO SCH (10:12)
[2022-03-01] MEDS: guaiFENesin SYRUP 100MG/5ML 200 MG/10 ML CUP PO PRN ×2 (10:12→17:07)
[2022-03-01] MEDS: ALPRAZolam 0.25 MG TAB PO PRN (10:26)
--- NOTE | 2022-03-01 14:48 | P.PN ---
Subjective Progress Note Date: 03/01/22 No new complaints today. Pending final pathology. Gen: awake, alert HEENT: normocephalic, atraumatic, good hearing acuity, moist mucous membranes Resp: good air exchange, breathing comfortably with no accessory muscle use CVS: good distal perfusion x 4, GI: soft, NTTP, ND : no SPT, no CVAT, watkins catheter not present MSK: no pitting edema, no clubbing Neuro: non-focal, moving all extremities Psych: cooperative, euthymic mood Assessment/plan: #Leukocytosis with elevated blast cells Bone marrow biopsy today per hematology . WBC 15.7 #Thrombocytopenia, plts 25 -Concerning for acute leukemia -Oncology consult input appreciated -Per oncology instructions no steroids and no platelet transfusion discussed with patient and his mother at bedside CODE STATUS:full code DVT prophylaxis: mechanical Anticipated length of stay > than [address]: home Objective - Vital Signs Vital signs: Vital Signs Temp 98.3 F 03/01/22 13:00 Pulse 93 03/01/22 13:00 Resp 16 03/01/22 13:00 BP 133/83 03/01/22 13:00 Pulse Ox 97 03/01/22 13:00 FiO2 Intake & Output 02/28/22 03/01/22 03/01/22 18:59 06:59 18:59 Other: Voiding Method Toilet Toilet # Voids 5 2 # Bowel Movements 1 - Labs CBC & Chem 7: 03/01/22 07:04 03/01/22 07:04 Labs: Abnormal Lab Results - Last 24 Hours (Table) 03/01/22 03/01/22 Range/Units 07:04 07:04 WBC 15.9 H (3.8-10.6) k/uL RBC 3.42 L (4.30-5.90) m/uL Hgb 10.6 L (13.0-17.5) gm/dL Hct 31.6 L (39.0-53.0) % RDW 17.9 H (11.5-15.5) % Plt Count 32 L (150-450) k/uL Blast Cells % 34 H* % Monocytes # (Manual) 4.45 H (0-1.0) k/uL Eosinophils # (Manual) 1.27 H (0-0.7) k/uL Metamyelocytes # (Man) 0.16 H (0) k/uL Blast Cells # (Man) 5.41 H (0) k/uL Total Bilirubin 1.7 H (0.2-1.3) mg/dL
--- NOTE | 2022-03-01 16:40 | P.PN ---
Subjective Progress Note Date: 03/01/22 Principal diagnosis: Suspected AML Bone Marrow final cytogenicsstill pending, prelim consistent with AML Start Induction Daily CBC Prophylaxic Acyclovir and posyconazole Support transfusions IrRADIATED ONLY Objective - Vital Signs Vital signs: Vital Signs Temp 97.9 F 03/01/22 04:37 Pulse 83 03/01/22 04:37 Resp 17 03/01/22 04:37 BP 132/80 03/01/22 04:37 Pulse Ox 99 03/01/22 04:37 FiO2 Intake & Output 02/28/22 03/01/22 03/01/22 18:59 06:59 18:59 Other: Voiding Method Toilet # Voids 5 2 # Bowel Movements 1 - Constitutional General appearance: Present: cooperative, no acute distress - EENT Eyes: Present: EOMI, PERRLA ENT: Present: NA/AT - Neck Neck: Present: normal ROM - Respiratory Respiratory: bilateral: CTA - Cardiovascular Rhythm: regular - Gastrointestinal General gastrointestinal: Present: soft - Integumentary Integumentary: Present: pale - Musculoskeletal Musculoskeletal: Present: generalized weakness - Psychiatric Psychiatric: Present: A&O x's 3, appropriate affect, intact judgment & insight - Labs CBC & Chem 7: 03/01/22 07:04 03/01/22 07:04 Labs: Abnormal Lab Results - Last 24 Hours (Table) 02/28/22 03/01/22 03/01/22 Range/Units 05:41 07:04 07:04 WBC 15.9 H (3.8-10.6) k/uL RBC 3.42 L (4.30-5.90) m/uL Hgb 10.6 L (13.0-17.5) gm/dL Hct 31.6 L (39.0-53.0) % RDW 17.9 H (11.5-15.5) % Plt Count 32 L (150-450) k/uL Plt Count Comment A Blast Cells % 37 H* 34 H* (0-0) % Neutrophils # (Manual) 1.26 L (2.00-8.90) X 10*3/uL Monocytes # (Manual) 3.16 H 4.45 H (0.20-1.00) X 10*3/uL Eosinophils # (Manual) 0.79 H 1.27 H (0.04-0.35) X 10*3/uL Metamyelocytes # (Man) 0.16 H (0) k/uL Blast Cells # (Man) 5.41 H (0) k/uL Total Bilirubin 1.7 H (0.2-1.3) mg/dL Assessment and Plan (1) Leukocytosis Narrative/Plan: Increased Monocytes, Myelocytes,Lymphocytes, increased Blasts on peripheral smear, Current Visit: Yes Status: Acute Priority: High Code(s): D72.829 - ELEVATED WHITE BLOOD CELL COUNT, UNSPECIFIED SNOMED Code(s): 793853831 (2) Thrombocytopenia Narrative/Plan: NO ASA, AC therapy, NSAIDS. Transfusions with Irradiated blood products only. >10K Current Visit: Yes Status: Acute Code(s): D69.6 - THROMBOCYTOPENIA, UNSPECIFIED SNOMED Code(s): 430753158 (3) Coagulopathy Current Visit: Yes Status: Acute Code(s): D68.9 - COAGULATION DEFECT, UNSPECIFIED SNOMED Code(s): 65393287 Plan: Recheck Coags, Uric acid, LDD and CBC CMP daily Prelim Acute Myeloid Leukemmia - Start 7+3 Inductions Discussed in detail with patient, mother and father all questions answered Bone marrow biopsy today Long discussion with patient and family regarding liklihood of an acute leukemia, plan to obtain echo and picc in preparation for induction. Dr. Waller: I have completed the full history and physical and developed the above impression and plan, agree with dictation, dictated as a scribe.
[2022-03-01] MEDS: OLANZapine 2.5 MG TAB PO SCH (20:45)
[2022-03-02] MEDS: guaiFENesin SYRUP 100MG/5ML 200 MG/10 ML CUP PO PRN ×2 (02:17→09:42)
[2022-03-02] MEDS: SALT AND SODA MOUTHWASH 1,000 ML PO SCH ×4 (06:06→19:31)
[2022-03-02 07:29] LABS: Anisocytosis Slight; HCT 28.2 % (39.0-53.0); HGB 9.5 gm/dL (13.0-17.5); MCH 31.6 pg (25.0-35.0); MCHC 33.9 g/dL (31.0-37.0); MCV 93.3 fL (80.0-100.0); Mean Platelet Volume 7.5; Poikilocytosis Slight; RBC 3.02 m/uL (4.30-5.90); RDW 18.1 % (11.5-15.5); WBC 17.5 k/uL (3.8-10.6)
[2022-03-02 07:34] LABS: Platelet Count 27 k/uL (150-450)
[2022-03-02 07:49] LABS: ALT 21 U/L (4-49); AST 19 U/L (17-59); African American GFR (CKD) >90 (>60 ml/min/1.73 sqM); Albumin/Globulin Ratio 1.5; Alkaline Phosphatase 74 U/L (38-126); Anion Gap 7 mmol/L; Blood Urea Nitrogen 10 mg/dL (9-20); Calcium 8.8 mg/dL (8.4-10.2); Carbon Dioxide 26 mmol/L (22-30); Chloride 105 mmol/L (98-107); Globulin 2.7 g/dL; Glucose 84 mg/dL (74-99); Non-African American GFR(CKD) >90 (>60 ml/min/1.73 sqM); Phosphorus 4.5 mg/dL (2.5-4.5); Potassium 3.9 mmol/L (3.5-5.1); Sodium 138 mmol/L (137-145); Total Bilirubin 1.3 mg/dL (0.2-1.3); Total Protein 6.7 g/dL (6.3-8.2); Uric Acid 5.2 mg/dL (3.5-8.5)
--- NOTE | 2022-03-02 08:36 | P.PN ---
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 - Initiation of Induction today with 7 plus 3 Prophylaxis with acyclovir and antifungal Objective - Vital Signs Vital signs: Vital Signs Temp 98.5 F 03/02/22 04:55 Pulse 88 03/02/22 04:55 Resp 18 03/02/22 04:55 BP 130/78 03/02/22 04:55 Pulse Ox 98 03/02/22 04:55 FiO2 Intake & Output 03/01/22 03/02/22 03/02/22 18:59 06:59 18:59 Other: Voiding Method Toilet Toilet # Voids 3 2 - Exam - EENT Eyes: EOMI ENT: NA/AT - Respiratory Respiratory: bilateral: CTA - Cardiovascular Rhythm: regular - Gastrointestinal General gastrointestinal: soft - Integumentary Integumentary: pale - Neurologic Neurologic: CNII-XII intact - Musculoskeletal Musculoskeletal: generalized weakness, strength equal bilaterally - Psychiatric Psychiatric: A&O x's 3, appropriate affect, intact judgment & insight - Labs CBC & Chem 7: 03/02/22 06:31 03/02/22 06:31 Labs: Abnormal Lab Results - Last 24 Hours (Table) 03/01/22 03/02/22 Range/Units 07:04 06:31 WBC 17.5 H (3.8-10.6) k/uL RBC 3.02 L (4.30-5.90) m/uL Hgb 9.5 L (13.0-17.5) gm/dL Hct 28.2 L (39.0-53.0) % RDW 18.1 H (11.5-15.5) % Plt Count 27 L (150-450) k/uL Blast Cells % 34 H* % Monocytes # (Manual) 4.45 H (0-1.0) k/uL Eosinophils # (Manual) 1.27 H (0-0.7) k/uL Metamyelocytes # (Man) 0.16 H (0) k/uL Blast Cells # (Man) 5.41 H (0) k/uL Assessment and Plan (1) AML (acute myelogenous leukemia) Narrative/Plan: New Diagnosis Day one with 7 plus 3 Antiemetics Daily labs Close monitoring Current Visit: Yes Status: Acute Code(s): C92.00 - ACUTE MYELOBLASTIC LEUKEMIA, NOT HAVING ACHIEVED REMISSION SNOMED Code(s): 41697243 (2) Leukocytosis Current Visit: Yes Status: Acute Priority: High Code(s): D72.829 - ELEVATED WHITE BLOOD CELL COUNT, UNSPECIFIED SNOMED Code(s): 513479020 (3) Thrombocytopenia Current Visit: Yes Status: Acute Code(s): D69.6 - THROMBOCYTOPENIA, UNSPECIFIED SNOMED Code(s): 562211593 (4) Coagulopathy Current Visit: Yes Status: Acute Code(s): D68.9 - COAGULATION DEFECT, UNSPECIFIED SNOMED Code(s): 55624324
[2022-03-02] MEDS: allopurinoL 300 MG TAB PO SCH (09:33)
[2022-03-02] MEDS: FLUCONAZOLE 100 MG TAB PO SCH (09:33)
[2022-03-02] MEDS: ACYCLOVIR 200 MG CAP PO SCH ×2 (09:33→21:27)
[2022-03-02] MEDS: FAMOTIDINE 20 MG/2 ML VIAL IV SCH (16:09)
[2022-03-02] MEDS: DEXAMETHASONE SOD PHOSPHATE 10 MG/ML 1 ML VIAL IV SCH (16:09)
[2022-03-02] MEDS: ALPRAZolam 0.25 MG TAB PO PRN (16:22)
[2022-03-02] MEDS: ONDANSETRON 16 MG in SODIUM CHLORIDE 0.9% 50 ML IVPB SCH (16:22)
--- NOTE | 2022-03-02 16:46 | P.PN ---
Subjective Progress Note Date: 03/02/22 No new complaints today. Pending final pathology, but started chemo last night. Gen: awake, alert HEENT: normocephalic, atraumatic, good hearing acuity, moist mucous membranes Resp: good air exchange, breathing comfortably with no accessory muscle use CVS: good distal perfusion x 4, GI: soft, NTTP, ND : no SPT, no CVAT, watkins catheter not present MSK: no pitting edema, no clubbing Neuro: non-focal, moving all extremities Psych: cooperative, euthymic mood Assessment/plan: #Leukocytosis with elevated blast cells Bone marrow biopsy today per hematology . WBC 15.7 #Thrombocytopenia, plts 25 -Concerning for acute leukemia -Oncology consult input appreciated -Per oncology instructions no steroids and no platelet transfusion discussed with patient and his mother at bedside CODE STATUS:full code DVT prophylaxis: mechanical Anticipated length of stay > than [address]: home Objective - Vital Signs Vital signs: Vital Signs Temp 98.0 F 03/02/22 12:04 Pulse 96 03/02/22 12:04 Resp 20 03/02/22 12:04 BP 126/82 03/02/22 12:04 Pulse Ox 96 03/02/22 12:04 FiO2 Intake & Output 03/01/22 03/02/22 03/02/22 18:59 06:59 18:59 Other: Voiding Method Toilet Toilet # Voids 3 2 - Labs CBC & Chem 7: 03/02/22 06:31 03/02/22 06:31 Labs: Abnormal Lab Results - Last 24 Hours (Table) 03/02/22 03/02/22 Range/Units 06:31 06:31 WBC 17.5 H (3.8-10.6) k/uL RBC 3.02 L (4.30-5.90) m/uL Hgb 9.5 L (13.0-17.5) gm/dL Hct 28.2 L (39.0-53.0) % RDW 18.1 H (11.5-15.5) % Plt Count 27 L (150-450) k/uL Lactate Dehydrogenase 570 H (120-246) U/L
[2022-03-02] MEDS: CYTARABINE IV SCH (17:11)
[2022-03-02] MEDS: SODIUM CHLORIDE 0.9% IV SCH (17:11)
[2022-03-02] MEDS: IDArubicin HCL 20 MG, IDArubicin HCL 4 MG in EMPTY SYRINGE 1 SYR IV SCH ×2 (17:11)
[2022-03-02] MEDS: SODIUM CHLORIDE 0.9% 1,000 ML IV SCH (17:37)
[2022-03-02 18:29] LABS: Band Neutrophils % 1 %; Blast Cells # (M) 5.43 k/uL (0); Eosinophils # (M) 0.35 k/uL (0-0.7); Lymphocytes # (M) 5.78 k/uL (1.0-4.8); Metamyelocytes # (M) 0.35 k/uL (0); Metamyelocytes % 2 %; Myelocytes # (M) 0.18 k/uL (0); Myelocytes % 1 %; Neutrophils % (M) 14 %; Nucleated Red Blood Cells 0 /100 WBC (0-0); Total Cells Counted 100
[2022-03-02] MEDS: OLANZapine 5 MG TAB PO SCH (21:28)
[2022-03-03] MEDS: SODIUM CHLORIDE 0.9% 1,000 ML IV SCH ×3 (00:10→15:42)
[2022-03-03] MEDS: SALT AND SODA MOUTHWASH 1,000 ML PO SCH ×5 (00:11→19:48)
[2022-03-03] MEDS: FLUCONAZOLE 100 MG TAB PO SCH (07:56)
[2022-03-03] MEDS: allopurinoL 300 MG TAB PO SCH (07:56)
[2022-03-03] MEDS: ACYCLOVIR 200 MG CAP PO SCH ×2 (07:56→20:22)
[2022-03-03 08:51] VITALS: BMI 35.5
--- NOTE | 2022-03-03 09:36 | P.PN ---
Subjective Progress Note Date: 03/03/22 Principal diagnosis: Confirmed AML Day 2 of 7+3 Tolerating well without uncontrolled SE Objective - Vital Signs Vital signs: Vital Signs Temp 98.2 F 03/03/22 08:40 Pulse 85 03/03/22 08:40 Resp 18 03/03/22 08:40 BP 143/81 03/03/22 08:40 Pulse Ox 98 03/03/22 08:40 FiO2 Intake & Output 03/02/22 03/03/22 03/03/22 18:59 06:59 18:59 Intake Total 168 590 Balance 168 590 Weight 115.666 kg Intake: Intake, IV Titration 168 Amount Cytarabine/Pf 400 mg In 22 Sodium Chloride 0.9% 500 ml 500 ml @ 21.667 mls/hr IV DAILY@[facility] Rx#: [id number] IDArubicin HCL 20 mg 96 IDArubicin HCL 4 mg In Empty Syringe 1 syr @ 96 mls/hr IV DAILY@[facility] Rx#:[id number] Ondansetron 16 mg In 50 Sodium Chloride 0.9% 50 ml @ 232 mls/hr IVPB DAILY@[facility] Rx#: [id number] Oral 590 Other: Voiding Method Toilet # Voids 5 - Exam - EENT Eyes: EOMI ENT: NA/AT - Respiratory Respiratory: bilateral: CTA - Cardiovascular Rhythm: regular - Gastrointestinal General gastrointestinal: soft - Integumentary Integumentary: pale - Neurologic Neurologic: CNII-XII intact - Musculoskeletal Musculoskeletal: generalized weakness, strength equal bilaterally - Psychiatric Psychiatric: A&O x's 3, appropriate affect, intact judgment & insight - Labs CBC & Chem 7: 03/03/22 05:52 03/03/22 05:52 Labs: Abnormal Lab Results - Last 24 Hours (Table) 03/02/22 03/02/22 Range/Units 06:31 06:31 Blast Cells % 31 H* % Lymphocytes # (Manual) 5.78 H (1.0-4.8) k/uL Monocytes # (Manual) 2.80 H (0-1.0) k/uL Metamyelocytes # (Man) 0.35 H (0) k/uL Myelocytes # (Manual) 0.18 H (0) k/uL Blast Cells # (Man) 5.43 H (0) k/uL Lactate Dehydrogenase 570 H (120-246) U/L Assessment and Plan (1) AML (acute myelogenous leukemia) Narrative/Plan: New Diagnosis Day one with 7 plus 3 Antiemetics Daily labs Close monitoring Day 2 tonight Current Visit: Yes Status: Acute Code(s): C92.00 - ACUTE MYELOBLASTIC LEUKEMIA, NOT HAVING ACHIEVED REMISSION SNOMED Code(s): 10254671 (2) Leukocytosis Narrative/Plan: Increased Monocytes, Myelocytes,Lymphocytes, increased Blasts on peripheral smear, Current Visit: Yes Status: Acute Priority: High Code(s): D72.829 - ELEVATED WHITE BLOOD CELL COUNT, UNSPECIFIED SNOMED Code(s): 859517373 (3) Thrombocytopenia Narrative/Plan: NO ASA, AC therapy, NSAIDS. Transfusions with Irradiated blood products only. >10K Current Visit: Yes Status: Acute Code(s): D69.6 - THROMBOCYTOPENIA, UNSPECIFIED SNOMED Code(s): 933991028 (4) Coagulopathy Current Visit: Yes Status: Acute Code(s): D68.9 - COAGULATION DEFECT, UNSPECIFIED SNOMED Code(s): 39530802 Plan: Recheck Coags, Uric acid, LDD and CBC CMP daily Prelim Acute Myeloid Leukemmia - Start 7+3 Inductions Discussed in detail with patient, mother and father all questions answered Bone marrow biopsy today Continue Day 2 of Induction, Daily labs Dr. Waller: I have completed the full history and physical and developed the above impression and plan, agree with dictation, dictated as a scribe.
[2022-03-03 10:03] LABS: HGB 9.1 g/dL (13.0-17.0); MCH 30.3 pg (27.0-32.0); MCHC 32.5 g/dL (32.0-37.0); MCV 93.3 fL (80.0-97.0); Mean Platelet Volume 11.7 fL (9.5-12.2); Phosphorus 3.8 mg/dL (2.4-5.1); Platelet Count 25 X 10*3/uL (140-440); RDW 16.9 % (11.5-14.5); Uric Acid 4.3 mg/dL (3.7-8.7); WBC 6.04 X 10*3/uL (4.50-10.00)
[2022-03-03] MEDS: ALPRAZolam 0.25 MG TAB PO PRN ×2 (10:17→14:56)
[2022-03-03 10:19] LABS: African American GFR (CKD) 141.2 (60.0-200.0); Albumin 4.1 g/dL (3.8-4.9); Albumin/Globulin Ratio 1.78 (1.60-3.17); Anion Gap 12.2 mmol/L (10.00-18.00); BUN/Creat Ratio 13.73 Ratio (12.00-20.00); Blood Urea Nitrogen 11.3 mg/dL (9.0-27.0); Calcium 8.9 mg/dL (8.7-10.3); Carbon Dioxide 18.5 mmol/L (20.0-27.5); Globulin 2.3 g/dL (1.6-3.3); Non-African American GFR(CKD) 121.9 (60.0-200.0); Potassium 4.4 mmol/L (3.5-5.5); Total Bilirubin 0.9 mg/dL (0.30-1.20); Total Protein 6.5 g/dL (6.2-8.2)
[2022-03-03 10:36] LABS: Prothrombin Time 11.1 sec (9.0-12.0)
[2022-03-03 10:39] LABS: Magnesium 2.1 mg/dL (1.6-2.3)
[2022-03-03 11:08] LABS: Band Neutrophils % 2 %; Basophils # (M) 0 X 10*3/uL (0.00-0.10); Eosinophils # (M) 0.18 X 10*3/uL (0.04-0.35); Immature Platelet Fraction 2.7 % (1.1-6.1); Lymphocytes # (M) 1.21 X 10*3/uL (0.90-5.00); Monocytes # (M) 0.24 X 10*3/uL (0.20-1.00); Myelocytes % 1 % (0-0); Neutrophils # (M) 2.66 X 10*3/uL (2.00-8.90); Neutrophils % (M) 42 %
--- NOTE | 2022-03-03 13:46 | P.PN ---
Subjective Progress Note Date: 03/03/22 No new complaints today. Pending final pathology, but now on day 2 of chemo 7+3. Gen: awake, alert HEENT: normocephalic, atraumatic, good hearing acuity, moist mucous membranes Resp: good air exchange, breathing comfortably with no accessory muscle use CVS: good distal perfusion x 4, GI: soft, NTTP, ND : no SPT, no CVAT, watkins catheter not present MSK: no pitting edema, no clubbing Neuro: non-focal, moving all extremities Psych: cooperative, euthymic mood Assessment/plan: #Leukocytosis with elevated blast cells Bone marrow biopsy today per hematology . WBC 15.7 #Thrombocytopenia, plts 25 -Concerning for acute leukemia -Oncology consult input appreciated -Per oncology instructions no steroids and no platelet transfusion discussed with patient and his mother at bedside CODE STATUS:full code DVT prophylaxis: mechanical Anticipated length of stay > than [address]: home Objective - Vital Signs Vital signs: Vital Signs Temp 98.1 F 03/03/22 12:10 Pulse 95 03/03/22 12:10 Resp 18 03/03/22 12:10 BP 147/88 03/03/22 12:10 Pulse Ox 97 03/03/22 12:10 FiO2 Intake & Output 03/02/22 03/03/22 03/03/22 18:59 06:59 18:59 Intake Total 168 590 Balance 168 590 Weight 115.666 kg Intake: Intake, IV Titration 168 Amount Cytarabine/Pf 400 mg In 22 Sodium Chloride 0.9% 500 ml 500 ml @ 21.667 mls/hr IV DAILY@1600 [facility] Rx#: [id number] IDArubicin HCL 20 mg 96 IDArubicin HCL 4 mg In Empty Syringe 1 syr @ 96 mls/hr IV DAILY@1600 [facility] Rx#:[id number] Ondansetron 16 mg In 50 Sodium Chloride 0.9% 50 ml @ 232 mls/hr IVPB DAILY@1600 [facility] Rx#: [id number] Oral 590 Other: Voiding Method Toilet # Voids 5 - Labs CBC & Chem 7: 03/03/22 05:52 03/03/22 05:52 Labs: Abnormal Lab Results - Last 24 Hours (Table) 03/02/22 03/02/22 03/03/22 Range/Units 06:31 06:31 05:52 RBC 3.00 L (4.40-5.60) X 10*6/uL Hgb 9.1 L (13.0-17.0) g/dL Hct 28.0 L (39.6-50.0) % RDW 16.9 H (11.5-14.5) % Plt Count 25 L (140-440) X 10*3/uL Plt Count Comment A Absolute Nucleated RBC 0.06 H (0.00-0.00) X 10*3/uL Myelocytes % 1 H (0-0) % Blast Cells % 31 H* 28 H* % Lymphocytes # (Manual) 5.78 H (1.0-4.8) k/uL Monocytes # (Manual) 2.80 H (0-1.0) k/uL Metamyelocytes # (Man) 0.35 H (0) k/uL Myelocytes # (Manual) 0.18 H (0) k/uL Blast Cells # (Man) 5.43 H (0) k/uL NRBC/100 WBC Diff 1.0 H (0.0-0.0) /100 WBCS Carbon Dioxide (20.0-27.5) mmol/L Glucose (70-110) mg/dL AST (14-35) U/L Lactate Dehydrogenase 570 H (120-246) U/L 03/03/22 03/03/22 Range/Units 05:52 09:56 RBC (4.40-5.60) X 10*6/uL Hgb (13.0-17.0) g/dL Hct (39.6-50.0) % RDW (11.5-14.5) % Plt Count (140-440) X 10*3/uL Plt Count Comment Absolute Nucleated RBC (0.00-0.00) X 10*3/uL Myelocytes % (0-0) % Blast Cells % % Lymphocytes # (Manual) (1.0-4.8) k/uL Monocytes # (Manual) (0-1.0) k/uL Metamyelocytes # (Man) (0) k/uL Myelocytes # (Manual) (0) k/uL Blast Cells # (Man) (0) k/uL NRBC/100 WBC Diff (0.0-0.0) /100 WBCS Carbon Dioxide 18.5 L (20.0-27.5) mmol/L Glucose 157 H (70-110) mg/dL AST 13 L (14-35) U/L Lactate Dehydrogenase 1496 H (120-246) U/L
[2022-03-03] MEDS: FAMOTIDINE 20 MG/2 ML VIAL IV SCH (19:48)
[2022-03-03] MEDS: ONDANSETRON 16 MG in SODIUM CHLORIDE 0.9% 50 ML IVPB SCH (19:48)
[2022-03-03] MEDS: DEXAMETHASONE SOD PHOSPHATE 10 MG/ML 1 ML VIAL IV SCH (19:48)
[2022-03-03] MEDS: IDArubicin HCL 20 MG, IDArubicin HCL 4 MG in EMPTY SYRINGE 1 SYR IV SCH ×2 (20:21)
[2022-03-03] MEDS: guaiFENesin SYRUP 100MG/5ML 200 MG/10 ML CUP PO PRN (20:22)
[2022-03-03] MEDS: OLANZapine 5 MG TAB PO SCH (20:25)
[2022-03-03] MEDS: CYTARABINE IV SCH (21:02)
[2022-03-03] MEDS: SODIUM CHLORIDE 0.9% IV SCH (21:02)
[2022-03-04] MEDS: SODIUM CHLORIDE 0.9% 1,000 ML IV SCH ×4 (00:15→23:21)
[2022-03-04] MEDS: SALT AND SODA MOUTHWASH 1,000 ML PO SCH ×6 (00:16→23:22)
[2022-03-04 07:04] LABS: Partial Thromboplastin Time 22.7 sec (22.0-30.0); Prothrombin Time 10.9 sec (9.0-12.0)
[2022-03-04] MEDS: FLUCONAZOLE 100 MG TAB PO SCH (08:49)
[2022-03-04] MEDS: ACYCLOVIR 200 MG CAP PO SCH ×2 (08:49→21:41)
[2022-03-04] MEDS: allopurinoL 300 MG TAB PO SCH (08:49)
[2022-03-04 09:41] LABS: Albumin 3.7 g/dL (3.8-4.9); Albumin/Globulin Ratio 1.95 (1.60-3.17); BUN/Creat Ratio 19.71 Ratio (12.00-20.00); Blood Urea Nitrogen 13.8 mg/dL (9.0-27.0); Calcium 8.5 mg/dL (8.7-10.3); Globulin 1.9 g/dL (1.6-3.3); Magnesium 2.3 mg/dL (1.5-2.4); Non-African American GFR(CKD) 130.2 (60.0-200.0); Phosphorus 4.2 mg/dL (2.4-5.1); Potassium 4.5 mmol/L (3.5-5.5); Total Protein 5.6 g/dL (6.2-8.2); Uric Acid 4.1 mg/dL (3.7-8.7)
[2022-03-04 10:01] LABS: Basophils # (M) 0 X 10*3/uL (0.00-0.10); Eosinophils # (M) 0 X 10*3/uL (0.04-0.35); HCT 23.9 % (39.6-50.0); HGB 7.7 g/dL (13.0-17.0); Immature Platelet Fraction 1.4 % (1.1-6.1); MCH 30.8 pg (27.0-32.0); MCHC 32.2 g/dL (32.0-37.0); MCV 95.6 fL (80.0-97.0); Mean Platelet Volume 10.7 fL (9.5-12.2); Metamyelocytes % 1 % (0-0); Monocytes # (M) 0.07 X 10*3/uL (0.20-1.00); NRBC Per 100 WBC 0.8 /100 WBCS (0.0-0.0); Neutrophils # (M) 1.33 X 10*3/uL (2.00-8.90); Neutrophils % (M) 55 %; Platelet Count 23 X 10*3/uL (140-440); RDW 17.2 % (11.5-14.5); WBC 2.41 X 10*3/uL (4.50-10.00)
--- NOTE | 2022-03-04 16:04 | P.PN ---
Subjective Progress Note Date: 03/04/22 No new complaints today. Pending final pathology, but now on day 3 of chemo 7+3. Gen: awake, alert HEENT: normocephalic, atraumatic, good hearing acuity, moist mucous membranes Resp: good air exchange, breathing comfortably with no accessory muscle use CVS: good distal perfusion x 4, GI: soft, NTTP, ND : no SPT, no CVAT, watkins catheter not present MSK: no pitting edema, no clubbing Neuro: non-focal, moving all extremities Psych: cooperative, euthymic mood Assessment/plan: #Leukocytosis with elevated blast cells Bone marrow biopsy today per hematology . WBC 15.7 #Thrombocytopenia, plts 25 -Concerning for acute leukemia -Oncology consult input appreciated -Per oncology instructions no steroids and no platelet transfusion discussed with patient and his mother at bedside CODE STATUS:full code DVT prophylaxis: mechanical Anticipated length of stay > than [address]: home Objective - Vital Signs Vital signs: Vital Signs Temp 98 F 03/04/22 12:00 Pulse 87 03/04/22 12:00 Resp 16 03/04/22 12:00 BP 152/88 03/04/22 12:00 Pulse Ox 98 03/04/22 12:00 FiO2 Intake & Output 03/03/22 03/04/22 03/04/22 18:59 06:59 18:59 Intake Total 2165 Balance 2165 Weight 115.666 kg Intake: Intake, IV Titration 1565 Amount IDArubicin HCL 20 mg 15 IDArubicin HCL 4 mg In Empty Syringe 1 syr @ 96 mls/hr IV DAILY@1600 [facility] Rx#:[id number] Ondansetron 16 mg In 50 Sodium Chloride 0.9% 50 ml @ 232 mls/hr IVPB DAILY@1600 [facility] Rx#: [id number] Sodium Chloride 0.9% 1, 1500 000 ml @ 125 mls/hr IV . Q8H [facility] Rx#:[id number] Oral 600 Other: Voiding Method Toilet Toilet # Voids 3 3 - Labs CBC & Chem 7: 03/04/22 06:25 03/04/22 06:25 Labs: Abnormal Lab Results - Last 24 Hours (Table) 02/28/22 03/04/22 03/04/22 Range/Units 06:00 06:25 06:25 WBC 2.41 L (4.50-10.00) X 10*3/uL RBC 2.50 L (4.40-5.60) X 10*6/uL Hgb 7.7 L (13.0-17.0) g/dL Hct 23.9 L (39.6-50.0) % RDW 17.2 H (11.5-14.5) % Plt Count 23 L (140-440) X 10*3/uL Plt Count Comment A Absolute Nucleated RBC 0.02 H (0.00-0.00) X 10*3/uL Metamyelocytes % 1 H (0-0) % Blast Cells % 12 H* (0-0) % Neutrophils # (Manual) 1.33 L (2.00-8.90) X 10*3/uL Lymphocytes # (Manual) 0.70 L (0.90-5.00) X 10*3/uL Monocytes # (Manual) 0.07 L (0.20-1.00) X 10*3/uL Eosinophils # (Manual) 0 L (0.04-0.35) X 10*3/uL NRBC/100 WBC Diff 0.8 H (0.0-0.0) /100 WBCS Fibrinogen Antigen 430 H (<350) mg/dL Chloride 110 H (96-109) mmol/L Carbon Dioxide 19.0 L (20.0-27.5) mmol/L Anion Gap 9.00 L (10.00-18.00) mmol/L Glucose 136 H (70-110) mg/dL Calcium 8.5 L (8.7-10.3) mg/dL AST 10 L (14-35) U/L Lactate Dehydrogenase 428 H (120-246) U/L Total Protein 5.6 L (6.2-8.2) g/dL Albumin 3.7 L (3.8-4.9) g/dL
[2022-03-04] MEDS: ALPRAZolam 0.25 MG TAB PO PRN (19:53)
[2022-03-04] MEDS: ONDANSETRON 16 MG in SODIUM CHLORIDE 0.9% 50 ML IVPB SCH (21:41)
[2022-03-04] MEDS: OLANZapine 5 MG TAB PO SCH (21:41)
[2022-03-04] MEDS: DEXAMETHASONE SOD PHOSPHATE 10 MG/ML 1 ML VIAL IV SCH (21:43)
[2022-03-04] MEDS: FAMOTIDINE 20 MG/2 ML VIAL IV SCH (21:43)
[2022-03-04] MEDS: IDArubicin HCL 20 MG, IDArubicin HCL 4 MG in EMPTY SYRINGE 1 SYR IV SCH ×2 (22:15)
[2022-03-04] MEDS: SODIUM CHLORIDE 0.9% IV SCH (22:16)
[2022-03-04] MEDS: CYTARABINE IV SCH (22:16)
[2022-03-04] MEDS: guaiFENesin SYRUP 100MG/5ML 200 MG/10 ML CUP PO PRN (23:21)
[2022-03-05] MEDS: SALT AND SODA MOUTHWASH 1,000 ML PO SCH ×5 (06:06→23:54)
[2022-03-05] MEDS: SODIUM CHLORIDE 0.9% 1,000 ML IV SCH ×3 (06:06→23:55)
[2022-03-05 06:15] LABS: Anisocytosis Slight; HCT 21.7 % (39.0-53.0); MCH 31.2 pg (25.0-35.0); MCHC 32.5 g/dL (31.0-37.0); Macrocytosis Slight; Mean Platelet Volume 9.4; Poikilocytosis Slight; RBC 2.26 m/uL (4.30-5.90); RDW 17.2 % (11.5-15.5); WBC 1.9 k/uL (3.8-10.6)
[2022-03-05 06:32] LABS: ALT 21 U/L (4-49); AST 19 U/L (17-59); African American GFR (CKD) >90 (>60 ml/min/1.73 sqM); Albumin 3.2 g/dL (3.5-5.0); Albumin/Globulin Ratio 1.3; Alkaline Phosphatase 48 U/L (38-126); Anion Gap 6 mmol/L; Blood Urea Nitrogen 17 mg/dL (9-20); Calcium 8.1 mg/dL (8.4-10.2); Carbon Dioxide 20 mmol/L (22-30); Chloride 110 mmol/L (98-107); Globulin 2.4 g/dL; Glucose 129 mg/dL (74-99); Non-African American GFR(CKD) >90 (>60 ml/min/1.73 sqM); Potassium 4.7 mmol/L (3.5-5.1); Sodium 136 mmol/L (137-145); Total Bilirubin 2.4 mg/dL (0.2-1.3); Total Protein 5.6 g/dL (6.3-8.2)
[2022-03-05 07:02] LABS: Platelet Count 20 k/uL (150-450)
[2022-03-05 07:11] LABS: LDH 761 U/L (313-618); Magnesium 2.3 mg/dL (1.6-2.3); Phosphorus 4.5 mg/dL (2.5-4.5)
[2022-03-05] MEDS: ACYCLOVIR 200 MG CAP PO SCH ×2 (08:16→22:33)
[2022-03-05] MEDS: allopurinoL 300 MG TAB PO SCH (08:16)
[2022-03-05] MEDS: FLUCONAZOLE 100 MG TAB PO SCH (08:16)
[2022-03-05 09:43] LABS: INR 1.02 (0.90-1.11); Prothrombin Time 11.2 sec (9.9-11.9)
[2022-03-05 10:10] LABS: Basophils # (M) 0.02 k/uL (0-0.2); Lymphocytes # (M) 0.27 k/uL (1.0-4.8); Monocytes # (M) 0.11 k/uL (0-1.0); Neutrophils # (M) 1.39 k/uL (1.3-7.7); Neutrophils % (M) 73 %
[2022-03-05 10:11] LABS: Blast Cells # (M) 0.13 k/uL (0); Nucleated Red Blood Cells 0 /100 WBC (0-0); Total Cells Counted 200
--- NOTE | 2022-03-05 14:08 | P.PN ---
Subjective Progress Note Date: 03/05/22 No new complaints today. Pending final pathology, but now on day 4 of chemo 7+3. Gen: awake, alert HEENT: normocephalic, atraumatic, good hearing acuity, moist mucous membranes Resp: good air exchange, breathing comfortably with no accessory muscle use CVS: good distal perfusion x 4, GI: soft, NTTP, ND : no SPT, no CVAT, watkins catheter not present MSK: no pitting edema, no clubbing Neuro: non-focal, moving all extremities Psych: cooperative, euthymic mood Assessment/plan: #Leukocytosis with elevated blast cells Bone marrow biopsy today per hematology . WBC 15.7 #Thrombocytopenia, plts 25 -Concerning for acute leukemia -Oncology consult input appreciated -Per oncology instructions no steroids and no platelet transfusion discussed with patient and his mother at bedside CODE STATUS:full code DVT prophylaxis: mechanical Anticipated length of stay > than [address]: home Objective - Vital Signs Vital signs: Vital Signs Temp 97.9 F 03/05/22 08:06 Pulse 75 03/05/22 08:06 Resp 16 03/05/22 08:06 BP 137/75 03/05/22 08:06 Pulse Ox 98 03/05/22 08:06 FiO2 Intake & Output 03/04/22 03/05/22 03/05/22 18:59 06:59 18:59 Intake Total 1500 1000 Balance 1500 1000 Intake: Intake, IV Titration 1500 1000 Amount Sodium Chloride 0.9% 1, 1500 1000 000 ml @ 125 mls/hr IV . Q8H [facility] Rx#:[id number] Other: Voiding Method Toilet Toilet Toilet - Labs CBC & Chem 7: 03/05/22 05:55 03/05/22 05:55 Labs: Abnormal Lab Results - Last 24 Hours (Table) 03/05/22 03/05/22 Range/Units 05:55 05:55 WBC 1.9 L (3.8-10.6) k/uL RBC 2.26 L (4.30-5.90) m/uL Hgb 7.0 L D (13.0-17.5) gm/dL Hct 21.7 L (39.0-53.0) % RDW 17.2 H (11.5-15.5) % Plt Count 20 L (150-450) k/uL Blast Cells % 7 H* % Lymphocytes # (Manual) 0.27 L (1.0-4.8) k/uL Blast Cells # (Man) 0.13 H (0) k/uL Sodium 136 L (137-145) mmol/L Chloride 110 H (98-107) mmol/L Carbon Dioxide 20 L (22-30) mmol/L Creatinine 0.65 L (0.66-1.25) mg/dL Glucose 129 H (74-99) mg/dL Calcium 8.1 L (8.4-10.2) mg/dL Total Bilirubin 2.4 H (0.2-1.3) mg/dL Lactate Dehydrogenase 761 H (313-618) U/L Total Protein 5.6 L (6.3-8.2) g/dL Albumin 3.2 L (3.5-5.0) g/dL
[2022-03-05] MEDS ORDERED: TIXAGEVIMAB/CILGAVIMAB (EUA) 300 MG/3 ML COMBO.PKG IM ONE (15:01)
[2022-03-05] MEDS: ALPRAZolam 0.25 MG TAB PO PRN (15:54)
--- NOTE | 2022-03-05 18:56 | P.PN ---
Subjective Progress Note Date: 03/05/22 Principal diagnosis: Confirmed AML He is tolerating induction well, has had some covid contacts, covid test negative this far. Will ask for override on THAI shield as patient is high risk Objective - Vital Signs Vital signs: Vital Signs Temp 97.9 F 03/05/22 08:06 Pulse 75 03/05/22 08:06 Resp 16 03/05/22 08:06 BP 137/75 03/05/22 08:06 Pulse Ox 98 03/05/22 08:06 FiO2 Intake & Output 03/04/22 03/05/22 03/05/22 18:59 06:59 18:59 Intake Total 1500 1000 Balance 1500 1000 Intake: Intake, IV Titration 1500 1000 Amount Sodium Chloride 0.9% 1, 1500 1000 000 ml @ 125 mls/hr IV . Q8H [facility] Rx#:[id number] Other: Voiding Method Toilet Toilet - Exam - EENT Eyes: EOMI ENT: NA/AT - Respiratory Respiratory: bilateral: CTA - Cardiovascular Rhythm: regular - Gastrointestinal General gastrointestinal: soft - Integumentary Integumentary: pale - Neurologic Neurologic: CNII-XII intact - Musculoskeletal Musculoskeletal: generalized weakness, strength equal bilaterally - Psychiatric Psychiatric: A&O x's 3, appropriate affect, intact judgment & insight - Labs CBC & Chem 7: 03/05/22 05:55 03/05/22 05:55 Labs: Abnormal Lab Results - Last 24 Hours (Table) 03/04/22 03/04/22 03/05/22 Range/Units 06:25 06:25 05:55 WBC 2.41 L 1.9 L (4.50-10.00) X 10*3/uL RBC 2.50 L 2.26 L (4.40-5.60) X 10*6/uL Hgb 7.7 L 7.0 L D (13.0-17.0) g/dL Hct 23.9 L 21.7 L (39.6-50.0) % RDW 17.2 H 17.2 H (11.5-14.5) % Plt Count 23 L (140-440) X 10*3/uL Plt Count Comment A Absolute Nucleated RBC 0.02 H (0.00-0.00) X 10*3/uL Metamyelocytes % 1 H (0-0) % Blast Cells % 12 H* (0-0) % Neutrophils # (Manual) 1.33 L (2.00-8.90) X 10*3/uL Lymphocytes # (Manual) 0.70 L (0.90-5.00) X 10*3/uL Monocytes # (Manual) 0.07 L (0.20-1.00) X 10*3/uL Eosinophils # (Manual) 0 L (0.04-0.35) X 10*3/uL NRBC/100 WBC Diff 0.8 H (0.0-0.0) /100 WBCS Sodium (137-145) mmol/L Chloride 110 H (96-109) mmol/L Carbon Dioxide 19.0 L (20.0-27.5) mmol/L Anion Gap 9.00 L (10.00-18.00) mmol/L Creatinine (0.66-1.25) mg/dL Glucose 136 H (70-110) mg/dL Calcium 8.5 L (8.7-10.3) mg/dL Total Bilirubin (0.2-1.3) mg/dL AST 10 L (14-35) U/L Lactate Dehydrogenase 428 H (120-246) U/L Total Protein 5.6 L (6.2-8.2) g/dL Albumin 3.7 L (3.8-4.9) g/dL 03/05/22 Range/Units 05:55 WBC (4.50-10.00) X 10*3/uL RBC (4.40-5.60) X 10*6/uL Hgb (13.0-17.0) g/dL Hct (39.6-50.0) % RDW (11.5-14.5) % Plt Count (140-440) X 10*3/uL Plt Count Comment Absolute Nucleated RBC (0.00-0.00) X 10*3/uL Metamyelocytes % (0-0) % Blast Cells % (0-0) % Neutrophils # (Manual) (2.00-8.90) X 10*3/uL Lymphocytes # (Manual) (0.90-5.00) X 10*3/uL Monocytes # (Manual) (0.20-1.00) X 10*3/uL Eosinophils # (Manual) (0.04-0.35) X 10*3/uL NRBC/100 WBC Diff (0.0-0.0) /100 WBCS Sodium 136 L (137-145) mmol/L Chloride 110 H (96-109) mmol/L Carbon Dioxide 20 L (20.0-27.5) mmol/L Anion Gap (10.00-18.00) mmol/L Creatinine 0.65 L (0.66-1.25) mg/dL Glucose 129 H (70-110) mg/dL Calcium 8.1 L (8.7-10.3) mg/dL Total Bilirubin 2.4 H (0.2-1.3) mg/dL AST (14-35) U/L Lactate Dehydrogenase 761 H (120-246) U/L Total Protein 5.6 L (6.2-8.2) g/dL Albumin 3.2 L (3.8-4.9) g/dL Assessment and Plan (1) AML (acute myelogenous leukemia) Narrative/Plan: New Diagnosis Day one with 7 plus 3 Antiemetics Daily labs Close monitoring Day 2 tonight Current Visit: Yes Status: Acute Code(s): C92.00 - ACUTE MYELOBLASTIC LEUKEMIA, NOT HAVING ACHIEVED REMISSION SNOMED Code(s): 89129455 (2) Leukocytosis Narrative/Plan: Increased Monocytes, Myelocytes,Lymphocytes, increased Blasts on peripheral smear, Current Visit: Yes Status: Acute Priority: High Code(s): D72.829 - ELEVATED WHITE BLOOD CELL COUNT, UNSPECIFIED SNOMED Code(s): 439208897 (3) Thrombocytopenia Narrative/Plan: NO ASA, AC therapy, NSAIDS. Transfusions with Irradiated blood products only. >10K Current Visit: Yes Status: Acute Code(s): D69.6 - THROMBOCYTOPENIA, UNSPECIFIED SNOMED Code(s): 395020148 (4) Coagulopathy Current Visit: Yes Status: Acute Code(s): D68.9 - COAGULATION DEFECT, UNSPECIFIED SNOMED Code(s): 58464750 Plan: Recheck Coags, Uric acid, LDD and CBC CMP daily Prelim Acute Myeloid Leukemmia - Start 7+3 Inductions Discussed in detail with patient, mother and father all questions answered Bone marrow biopsy today Continue Day 4 of Induction, Daily labs EVASHIELD for COVID prevention in high risk Discussed with patient and Primary team
[2022-03-05] MEDS: OLANZapine 5 MG TAB PO SCH (22:34)
[2022-03-05] MEDS: CYANOCOBALAMIN 500 MCG TAB PO SCH (22:40)
[2022-03-05] MEDS: guaiFENesin SYRUP 100MG/5ML 200 MG/10 ML CUP PO PRN (22:40)
[2022-03-05] MEDS: FOLIC ACID 1 MG TAB PO SCH (22:40)
[2022-03-05] MEDS: ONDANSETRON 16 MG in SODIUM CHLORIDE 0.9% 50 ML IVPB SCH ×2 (23:24→23:29)
[2022-03-05] MEDS: FAMOTIDINE 20 MG/2 ML VIAL IV SCH (23:25)
[2022-03-05] MEDS: DEXAMETHASONE SOD PHOSPHATE 10 MG/ML 1 ML VIAL IV SCH (23:25)
[2022-03-05] MEDS: CYTARABINE IV SCH (23:48)
[2022-03-05] MEDS: SODIUM CHLORIDE 0.9% IV SCH (23:48)
[2022-03-06] MEDS: SALT AND SODA MOUTHWASH 1,000 ML PO SCH ×4 (06:33→21:25)
[2022-03-06 07:23] LABS: Partial Thromboplastin Time 23.5 sec (22.0-30.0); Prothrombin Time 10.9 sec (9.0-12.0)
[2022-03-06] MEDS: allopurinoL 300 MG TAB PO SCH (08:25)
[2022-03-06] MEDS: FOLIC ACID 1 MG TAB PO SCH (08:25)
[2022-03-06] MEDS: CYANOCOBALAMIN 500 MCG TAB PO SCH (08:26)
[2022-03-06] MEDS: ACYCLOVIR 200 MG CAP PO SCH ×2 (08:26→21:25)
[2022-03-06] MEDS: FLUCONAZOLE 100 MG TAB PO SCH (08:27)
[2022-03-06 11:15] LABS: Magnesium 2.3 mg/dL (1.5-2.4); Phosphorus 4.1 mg/dL (2.4-5.1); Uric Acid 3.3 mg/dL (3.7-8.7)
[2022-03-06 11:59] LABS: HCT 17.2 % (39.6-50.0); HGB 5.7 g/dL (13.0-17.0); MCH 31.7 pg (27.0-32.0); MCHC 33.1 g/dL (32.0-37.0); MCV 95.6 fL (80.0-97.0); Mean Platelet Volume 9.4 fL (9.5-12.2); NRBC Per 100 WBC 0 /100 WBCS (0.0-0.0); Platelet Count 17 X 10*3/uL (140-440); RDW 16.9 % (11.5-14.5); WBC 1.44 X 10*3/uL (4.50-10.00)
[2022-03-06 12:41] LABS: African American GFR (CKD) 160.8 (60.0-200.0); Albumin 3.3 g/dL (3.8-4.9); Albumin/Globulin Ratio 1.94 (1.60-3.17); Anion Gap 11.4 mmol/L (10.00-18.00); Blood Urea Nitrogen 16.2 mg/dL (9.0-27.0); Calcium 8.4 mg/dL (8.7-10.3); Carbon Dioxide 19.6 mmol/L (20.0-27.5); Globulin 1.7 g/dL (1.6-3.3); Non-African American GFR(CKD) 138.8 (60.0-200.0); Potassium 4.7 mmol/L (3.5-5.5)
[2022-03-06 13:16] LABS: Basophils # (A) 0 X 10*3/uL (0.00-0.10); Basophils % (A) 0 %; Eosinophils # (A) 0 X 10*3/uL (0.04-0.35); Eosinophils % (A) 0 %; Immature Grans, Automated 1.4 %; Immature Platelet Fraction 1.2 % (1.1-6.1); Lymphocytes # (A) 0.23 X 10*3/uL (0.90-5.00); Monocytes # (A) 0.08 X 10*3/uL (0.20-1.00); Monocytes % (A) 5.6 %; Neutrophils # (A) 1.11 X 10*3/uL (1.80-7.70)
[2022-03-06] MEDS: ALPRAZolam 0.25 MG TAB PO PRN (13:39)
--- NOTE | 2022-03-06 16:27 | P.PN ---
Subjective Progress Note Date: 03/06/22 No new complaints today. Now on day 5 of chemo 7+3. Required 2U PRBCs today. Given Evushield in context of recent exposure to COVID-19. Gen: awake, alert HEENT: normocephalic, atraumatic, good hearing acuity, moist mucous membranes Resp: good air exchange, breathing comfortably with no accessory muscle use CVS: good distal perfusion x 4, GI: soft, NTTP, ND : no SPT, no CVAT, watkins catheter not present MSK: no pitting edema, no clubbing Neuro: non-focal, moving all extremities Psych: cooperative, euthymic mood Assessment/plan: #Acute Myeloid Leukemia #Pancytopenia -Oncology consult input appreciated -Chemotherapy per oncology -replete blood product as needed, 2 U PRBC on 03/06 -no evidence of TLS, continue to follow labs CODE STATUS:full code DVT prophylaxis: mechanical Anticipated length of stay > than [address]: home Objective - Vital Signs Vital signs: Vital Signs Temp 98.3 F 03/06/22 11:13 Pulse 87 03/06/22 11:13 Resp 16 03/06/22 11:13 BP 145/76 03/06/22 11:13 Pulse Ox 99 03/06/22 11:13 FiO2 Intake & Output 03/05/22 03/06/22 03/06/22 18:59 06:59 18:59 Intake Total 1500 1800 Balance 1500 1800 Intake: Intake, IV Titration 1500 1800 Amount Cytarabine/Pf 400 mg In 250 Sodium Chloride 0.9% 500 ml 500 ml @ 21.667 mls/hr IV DAILY@1600 [facility] Rx#: [id number] Ondansetron 16 mg In 50 Sodium Chloride 0.9% 50 ml @ 232 mls/hr IVPB DAILY@1600 [facility] Rx#: [id number] Sodium Chloride 0.9% 1, 1500 1500 000 ml @ 125 mls/hr IV . Q8H [facility] Rx#:[id number] Other: Voiding Method Toilet Toilet Toilet - Labs CBC & Chem 7: 03/06/22 06:17 03/06/22 06:17 Labs: Abnormal Lab Results - Last 24 Hours (Table) 03/06/22 03/06/22 03/06/22 Range/Units 06:17 06:17 06:17 WBC 1.44 L* (4.50-10.00) X 10*3/uL RBC 1.80 L (4.40-5.60) X 10*6/uL Hgb 5.7 L* (13.0-17.0) g/dL Hct 17.2 L* (39.6-50.0) % RDW 16.9 H (11.5-14.5) % Plt Count 17 L* (140-440) X 10*3/uL MPV 9.4 L (9.5-12.2) fL Neutrophils # 1.11 L (1.80-7.70) X 10*3/uL Lymphocytes # 0.23 L (0.90-5.00) X 10*3/uL Monocytes # 0.08 L (0.20-1.00) X 10*3/uL Eosinophils # 0 L (0.04-0.35) X 10*3/uL D-Dimer 1.75 H (<0.60) mg/L FEU Carbon Dioxide 19.6 L (20.0-27.5) mmol/L BUN/Creatinine Ratio 27.00 H (12.00-20.00) Ratio Glucose 123 H (70-110) mg/dL Uric Acid 3.3 L (3.7-8.7) mg/dL Calcium 8.4 L (8.7-10.3) mg/dL Total Bilirubin 2.00 H (0.30-1.20) mg/dL AST 13 L (14-35) U/L Lactate Dehydrogenase 288 H (120-246) U/L Total Protein 5.0 L (6.2-8.2) g/dL Albumin 3.3 L (3.8-4.9) g/dL TSH 0.139 L (0.350-5.500) uIU/mL Crossmatch 03/06/22 Range/Units 12:15 WBC (4.50-10.00) X 10*3/uL RBC (4.40-5.60) X 10*6/uL Hgb (13.0-17.0) g/dL Hct (39.6-50.0) % RDW (11.5-14.5) % Plt Count (140-440) X 10*3/uL MPV (9.5-12.2) fL Neutrophils # (1.80-7.70) X 10*3/uL Lymphocytes # (0.90-5.00) X 10*3/uL Monocytes # (0.20-1.00) X 10*3/uL Eosinophils # (0.04-0.35) X 10*3/uL D-Dimer (<0.60) mg/L FEU Carbon Dioxide (20.0-27.5) mmol/L BUN/Creatinine Ratio (12.00-20.00) Ratio Glucose (70-110) mg/dL Uric Acid (3.7-8.7) mg/dL Calcium (8.7-10.3) mg/dL Total Bilirubin (0.30-1.20) mg/dL AST (14-35) U/L Lactate Dehydrogenase (120-246) U/L Total Protein (6.2-8.2) g/dL Albumin (3.8-4.9) g/dL TSH (0.350-5.500) uIU/mL Crossmatch See Detail
[2022-03-06] MEDS: SODIUM CHLORIDE 0.9% 1,000 ML IV SCH ×2 (17:48→17:49)
--- NOTE | 2022-03-06 20:01 | P.PN ---
Subjective Progress Note Date: 03/06/22 Principal diagnosis: Confirmed AML Day 5 of induction, hemoglobin 5.7 Tolerating treatment well Status post EVUshield for high risk exposure Objective - Vital Signs Vital signs: Vital Signs Temp 98.0 F 03/06/22 19:51 Pulse 104 H 03/06/22 19:51 Resp 18 03/06/22 19:51 BP 154/84 03/06/22 19:51 Pulse Ox 98 03/06/22 19:51 FiO2 Intake & Output 03/06/22 03/06/22 03/07/22 06:59 18:59 06:59 Intake Total 1800 125 0 Balance 1800 125 0 Intake: Intake, IV Titration 1800 125 Amount Cytarabine/Pf 400 mg In 250 Sodium Chloride 0.9% 500 ml 500 ml @ 21.667 mls/hr IV DAILY@1600 [facility] Rx#: [id number] Ondansetron 16 mg In 50 Sodium Chloride 0.9% 50 ml @ 232 mls/hr IVPB DAILY@1600 [facility] Rx#: [id number] Sodium Chloride 0.9% 1, 1500 125 000 ml @ 125 mls/hr IV . Q8H [facility] Rx#:[id number] Blood Product 0 Rc Irr As1 Unit 0 [id number] Other: Voiding Method Toilet Toilet - Exam - EENT Eyes: EOMI ENT: NA/AT - Respiratory Respiratory: bilateral: CTA - Cardiovascular Rhythm: regular - Gastrointestinal General gastrointestinal: soft - Integumentary Integumentary: pale - Neurologic Neurologic: CNII-XII intact - Musculoskeletal Musculoskeletal: generalized weakness, strength equal bilaterally - Psychiatric Psychiatric: A&O x's 3, appropriate affect, intact judgment & insight - Labs CBC & Chem 7: 03/10/22 08:16 03/10/22 08:16 Labs: Abnormal Lab Results - Last 24 Hours (Table) 03/06/22 03/06/22 03/06/22 Range/Units 06:17 06:17 06:17 WBC 1.44 L* (4.50-10.00) X 10*3/uL RBC 1.80 L (4.40-5.60) X 10*6/uL Hgb 5.7 L* (13.0-17.0) g/dL Hct 17.2 L* (39.6-50.0) % RDW 16.9 H (11.5-14.5) % Plt Count 17 L* (140-440) X 10*3/uL MPV 9.4 L (9.5-12.2) fL Neutrophils # 1.11 L (1.80-7.70) X 10*3/uL Lymphocytes # 0.23 L (0.90-5.00) X 10*3/uL Monocytes # 0.08 L (0.20-1.00) X 10*3/uL Eosinophils # 0 L (0.04-0.35) X 10*3/uL D-Dimer 1.75 H (<0.60) mg/L FEU Carbon Dioxide 19.6 L (20.0-27.5) mmol/L BUN/Creatinine Ratio 27.00 H (12.00-20.00) Ratio Glucose 123 H (70-110) mg/dL Uric Acid 3.3 L (3.7-8.7) mg/dL Calcium 8.4 L (8.7-10.3) mg/dL Total Bilirubin 2.00 H (0.30-1.20) mg/dL AST 13 L (14-35) U/L Lactate Dehydrogenase 288 H (120-246) U/L Total Protein 5.0 L (6.2-8.2) g/dL Albumin 3.3 L (3.8-4.9) g/dL TSH 0.139 L (0.350-5.500) uIU/mL Crossmatch 03/06/22 Range/Units 12:15 WBC (4.50-10.00) X 10*3/uL RBC (4.40-5.60) X 10*6/uL Hgb (13.0-17.0) g/dL Hct (39.6-50.0) % RDW (11.5-14.5) % Plt Count (140-440) X 10*3/uL MPV (9.5-12.2) fL Neutrophils # (1.80-7.70) X 10*3/uL Lymphocytes # (0.90-5.00) X 10*3/uL Monocytes # (0.20-1.00) X 10*3/uL Eosinophils # (0.04-0.35) X 10*3/uL D-Dimer (<0.60) mg/L FEU Carbon Dioxide (20.0-27.5) mmol/L BUN/Creatinine Ratio (12.00-20.00) Ratio Glucose (70-110) mg/dL Uric Acid (3.7-8.7) mg/dL Calcium (8.7-10.3) mg/dL Total Bilirubin (0.30-1.20) mg/dL AST (14-35) U/L Lactate Dehydrogenase (120-246) U/L Total Protein (6.2-8.2) g/dL Albumin (3.8-4.9) g/dL TSH (0.350-5.500) uIU/mL Crossmatch See Detail Assessment and Plan (1) AML (acute myelogenous leukemia) Narrative/Plan: New Diagnosis Day one with 7 plus 3 Antiemetics Daily labs Close monitoring Day 5 tonight Current Visit: Yes Status: Acute Code(s): C92.00 - ACUTE MYELOBLASTIC LEUKEMIA, NOT HAVING ACHIEVED REMISSION SNOMED Code(s): 22876438 (2) Leukocytosis Narrative/Plan: Increased Monocytes, Myelocytes,Lymphocytes, increased Blasts on peripheral smear, Current Visit: Yes Status: Acute Priority: High Code(s): D72.829 - ELEVATED WHITE BLOOD CELL COUNT, UNSPECIFIED SNOMED Code(s): 732231888 (3) Thrombocytopenia Narrative/Plan: NO ASA, AC therapy, NSAIDS. Transfusions with Irradiated blood products only. >10K Current Visit: Yes Status: Acute Code(s): D69.6 - THROMBOCYTOPENIA, UNSPECIFIED SNOMED Code(s): 353687475 (4) Coagulopathy Current Visit: Yes Status: Acute Code(s): D68.9 - COAGULATION DEFECT, UNSPECIFIED SNOMED Code(s): 68939550 Plan: Recheck Coags, Uric acid, LDD and CBC CMP daily Prelim Acute Myeloid Leukemmia - Start 7+3 Inductions Discussed in detail with patient, mother and father all questions answered Bone marrow biopsy today Continue Day 5 of Induction, Daily labs Status post EVASHIELD for COVID prevention in high risk Transfuse one unit PRBC irradiated today.
[2022-03-06] MEDS: OLANZapine 5 MG TAB PO SCH (21:25)
[2022-03-06] MEDS: DEXAMETHASONE SOD PHOSPHATE 10 MG/ML 1 ML VIAL IV SCH (23:52)
[2022-03-06] MEDS: FAMOTIDINE 20 MG/2 ML VIAL IV SCH (23:52)
[2022-03-06] MEDS: ONDANSETRON 16 MG in SODIUM CHLORIDE 0.9% 50 ML IVPB SCH (23:56)
[2022-03-07] MEDS: CYTARABINE IV SCH (00:14)
[2022-03-07] MEDS: SODIUM CHLORIDE 0.9% IV SCH (00:14)
[2022-03-07] MEDS: SALT AND SODA MOUTHWASH 1,000 ML PO SCH ×5 (00:14→21:00)
[2022-03-07] MEDS: SODIUM CHLORIDE 0.9% 1,000 ML IV SCH ×4 (02:38→21:01)
[2022-03-07] MEDS: FOLIC ACID 1 MG TAB PO SCH (09:19)
[2022-03-07] MEDS: CYANOCOBALAMIN 500 MCG TAB PO SCH (09:19)
[2022-03-07] MEDS: ACYCLOVIR 200 MG CAP PO SCH ×2 (09:19→20:59)
[2022-03-07] MEDS: allopurinoL 300 MG TAB PO SCH (09:19)
[2022-03-07] MEDS: FLUCONAZOLE 100 MG TAB PO SCH (09:20)
[2022-03-07 10:58] LABS: Magnesium 2.3 mg/dL (1.5-2.4)
[2022-03-07 11:40] LABS: Albumin 3.6 g/dL (3.8-4.9); Albumin/Globulin Ratio 2.12 (1.60-3.17); Anion Gap 6.6 mmol/L (10.00-18.00); BUN/Creat Ratio 24.57 Ratio (12.00-20.00); Blood Urea Nitrogen 17.2 mg/dL (9.0-27.0); Calcium 8.5 mg/dL (8.7-10.3); Carbon Dioxide 24.4 mmol/L (20.0-27.5); Globulin 1.7 g/dL (1.6-3.3); Non-African American GFR(CKD) 130.2 (60.0-200.0); Potassium 4.4 mmol/L (3.5-5.5); Total Bilirubin 2.5 mg/dL (0.30-1.20); Total Protein 5.3 g/dL (6.2-8.2)
[2022-03-07 13:02] LABS: Anisocytosis Slight; HGB 7.5 gm/dL (13.0-17.5); MCH 31.9 pg (25.0-35.0); MCHC 34.2 g/dL (31.0-37.0); MCV 93.2 fL (80.0-100.0); Mean Platelet Volume 9.4; RBC 2.36 m/uL (4.30-5.90); RDW 16.8 % (11.5-15.5)
[2022-03-07 13:05] LABS: Platelet Count 17 k/uL (150-450); WBC 1.3 k/uL (3.8-10.6)
[2022-03-07] MEDS: polyethylene glycoL 3350 17 GM POWD.PACK PO SCH (13:10)
[2022-03-07 13:29] LABS: Poikilocytosis (M) Present
--- NOTE | 2022-03-07 15:28 | P.PN ---
Subjective Progress Note Date: 03/07/22 The patient denies any new complaints. ET fatigability and some generalized weakness is stable and persistent. Appetite appears to be fair. No diarrhea, mouth sores, or obvious bleeding. Objective - Vital Signs Vital signs: Vital Signs Temp 98.1 F 03/07/22 12:00 Pulse 79 03/07/22 12:00 Resp 16 03/07/22 12:00 BP 143/82 03/07/22 12:00 Pulse Ox 97 03/07/22 12:00 FiO2 Intake & Output 03/06/22 03/07/22 03/07/22 18:59 06:59 18:59 Intake Total 125 2170 Balance 125 2170 Intake: Intake, IV Titration 125 1550 Amount Ondansetron 16 mg In 50 Sodium Chloride 0.9% 50 ml @ 232 mls/hr IVPB DAILY@1600 BREANNA Rx#: [id number] Sodium Chloride 0.9% 1, 125 1500 000 ml @ 125 mls/hr IV . Q8H BREANNA Rx#:[id number] Blood Product 620 Rc Irr As1 Unit 310 [id number] Rc Irr As1 Unit 310 [id number] Other: Voiding Method Toilet Toilet # Voids 3 - Constitutional General appearance: Present: no acute distress - EENT Eyes: Present: EOMI ENT: Present: hearing grossly normal, normal oropharynx - Respiratory Respiratory: bilateral: CTA - Cardiovascular Rhythm: regular Heart sounds: normal: S1, S2 - Gastrointestinal General gastrointestinal: Present: normal bowel sounds, soft - Integumentary Integumentary: Present: normal - Neurologic Neurologic: Present: CNII-XII intact - Musculoskeletal Musculoskeletal: Present: generalized weakness, strength equal bilaterally - Psychiatric Psychiatric: Present: A&O x's 3, appropriate affect - Labs CBC & Chem 7: 03/07/22 07:10 03/07/22 07:10 Labs: Abnormal Lab Results - Last 24 Hours (Table) 03/06/22 03/07/22 03/07/22 Range/Units 12:15 07:10 07:10 WBC 1.3 L* (3.8-10.6) k/uL RBC 2.36 L (4.30-5.90) m/uL Hgb 7.5 L (13.0-17.5) gm/dL Hct 22.0 L (39.0-53.0) % RDW 16.8 H (11.5-15.5) % Plt Count 17 L* (150-450) k/uL Anion Gap 6.60 L (10.00-18.00) mmol/L BUN/Creatinine Ratio 24.57 H (12.00-20.00) Ratio Glucose 124 H (70-110) mg/dL Uric Acid 3.0 L (3.7-8.7) mg/dL Calcium 8.5 L (8.7-10.3) mg/dL Total Bilirubin 2.50 H (0.30-1.20) mg/dL AST 13 L (14-35) U/L Lactate Dehydrogenase 266 H (120-246) U/L Total Protein 5.3 L (6.2-8.2) g/dL Albumin 3.6 L (3.8-4.9) g/dL Crossmatch See Detail Assessment and Plan (1) AML (acute myelogenous leukemia) Narrative/Plan: The patient is on day #6 of induction chemotherapy with 7+3. He is tolerating chemotherapy reasonably well so far. No evidence of tumor lysis. Continue to monitor with physical exam and labs. Continue allopurinol. Current Visit: Yes Status: Acute Code(s): C92.00 - ACUTE MYELOBLASTIC LEUKEMIA, NOT HAVING ACHIEVED REMISSION SNOMED Code(s): 90238104 (2) Pancytopenia due to antineoplastic chemotherapy Narrative/Plan: The patient's WBC is now lower than normal, leading to pancytopenia, due to ongoing treatment effect. He did receive 2 units PRBC yesterday with hemoglobin improved to 7.5. Continue to monitor and transfuse to keep hemoglobin greater than 7, and platelets greater than 10 as long as the patient is not having any active bleeding. Current Visit: Yes Status: Acute Code(s): D61.810 - ANTINEOPLASTIC CHEMOTHERAPY INDUCED PANCYTOPENIA; T45.1X5A - ADVERSE EFFECT OF ANTINEOPLASTIC AND IMMUNOSUP DRUGS, INIT SNOMED Code(s): 831241703744200 Plan: Case discussed with the admitting service and nursing.
--- NOTE | 2022-03-07 19:26 | P.PN ---
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 He had been started on antibiotics for possible pneumonia and blood work was ordered. This showed significant thrombocytopenia since told to come to the ER. 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 Oncology started him on induction chemotherapy. Patient seen and examined at bedside with family present. He denies any chest pain, shortness breath, nausea, vomiting. Per the mother she started him on stool softeners yesterday due to constipation from meds brought to her by the oncology [employer]. She thought she was supposed to give these while he was still hospitalized. General: non toxic, no distress, appears at stated age Derm: warm, dry Head: atraumatic, normocephalic, symmetric Eyes: EOMI, no lid lag, anicteric sclera Mouth: no lip lesion, mucus membranes moist Cardiovascular: S1S2 reg, no murmur, positive posterior tibial pulse bilateral, Lungs: CTA bilateral, no rhonchi, no rales , no accessory muscle use Abdominal: soft, nontender to palpation, no guarding, no appreciable organomegaly Ext: no gross muscle atrophy, no edema, no contractures Neuro: CN II-XI grossly intact, no focal neuro deficits Psych: Alert, oriented, appropriate affect Assessment/plan: Acute myelogenous leukemia Anemia Thrombocytopenia -Oncology recommendations -On induction chemotherapy -Status post 1 unit packed red blood cells on 03/06 -Follow labs closely. History of PKU -Has been off diet for years per mother Obesity with BMI 35.6 -Ensure adequate oral intake received chemotherapy. DVT prophylaxis: SCDs due to thrombocytopenia Discussed with: Patient, nursing, mother Anticipated discharge: Undetermined Anticipated discharge place: Undetermined A total of 35 minutes was spent on the care of this complex patient more than 50% of the time was spent in counseling and care coordination. Objective - Vital Signs Vital signs: Vital Signs Temp 98.4 F 03/07/22 16:00 Pulse 91 03/07/22 16:00 Resp 16 03/07/22 16:00 BP 137/71 03/07/22 16:00 Pulse Ox 98 03/07/22 16:00 FiO2 Intake & Output 03/07/22 03/07/22 03/08/22 06:59 18:59 06:59 Intake Total 2170 1200 Balance 2170 1200 Intake: Intake, IV Titration 1550 1200 Amount Ondansetron 16 mg In 50 Sodium Chloride 0.9% 50 ml @ 232 mls/hr IVPB DAILY@1600 [facility] Rx#: [id number] Sodium Chloride 0.9% 1, 1500 1200 000 ml @ 125 mls/hr IV . Q8H [facility] Rx#:[id number] Blood Product 620 Rc Irr As1 Unit 310 [id number] Rc Irr As1 Unit 310 [id number] Other: Voiding Method Toilet # Voids 3 - Labs CBC & Chem 7: 03/07/22 07:10 03/07/22 07:10 Labs: Abnormal Lab Results - Last 24 Hours (Table) 03/06/22 03/07/22 03/07/22 Range/Units 12:15 07:10 07:10 WBC 1.3 L* (3.8-10.6) k/uL RBC 2.36 L (4.30-5.90) m/uL Hgb 7.5 L (13.0-17.5) gm/dL Hct 22.0 L (39.0-53.0) % RDW 16.8 H (11.5-15.5) % Plt Count 17 L* (150-450) k/uL Anion Gap 6.60 L (10.00-18.00) mmol/L BUN/Creatinine Ratio 24.57 H (12.00-20.00) Ratio Glucose 124 H (70-110) mg/dL Uric Acid 3.0 L (3.7-8.7) mg/dL Calcium 8.5 L (8.7-10.3) mg/dL Total Bilirubin 2.50 H (0.30-1.20) mg/dL AST 13 L (14-35) U/L Lactate Dehydrogenase 266 H (120-246) U/L Total Protein 5.3 L (6.2-8.2) g/dL Albumin 3.6 L (3.8-4.9) g/dL Crossmatch See Detail
[2022-03-07] MEDS: OLANZapine 5 MG TAB PO SCH (20:59)
[2022-03-07] MEDS: SENNOSIDES 8.6 MG TAB PO SCH (20:59)
[2022-03-08] MEDS: DEXAMETHASONE SOD PHOSPHATE 10 MG/ML 1 ML VIAL IV SCH ×2 (00:14→23:30)
[2022-03-08] MEDS: FAMOTIDINE 20 MG/2 ML VIAL IV SCH ×2 (00:14→23:30)
[2022-03-08] MEDS: ONDANSETRON 16 MG in SODIUM CHLORIDE 0.9% 50 ML IVPB SCH ×2 (00:14→23:29)
[2022-03-08] MEDS: CYTARABINE IV SCH ×2 (00:17→23:47)
[2022-03-08] MEDS: SODIUM CHLORIDE 0.9% IV SCH ×2 (00:17→23:47)
[2022-03-08] MEDS: SALT AND SODA MOUTHWASH 1,000 ML PO SCH ×5 (00:37→20:09)
[2022-03-08] MEDS: guaiFENesin SYRUP 100MG/5ML 200 MG/10 ML CUP PO PRN (01:00)
[2022-03-08] MEDS: SODIUM CHLORIDE 0.9% 1,000 ML IV SCH ×3 (05:12→20:12)
[2022-03-08 07:07] LABS: Anisocytosis Slight; HCT 22.7 % (39.0-53.0); HGB 7.8 gm/dL (13.0-17.5); MCH 31.9 pg (25.0-35.0); MCHC 34.5 g/dL (31.0-37.0); MCV 92.4 fL (80.0-100.0); Mean Platelet Volume 9.6; Poikilocytosis Slight; RBC 2.46 m/uL (4.30-5.90); RDW 16.2 % (11.5-15.5)
[2022-03-08 07:09] LABS: ALT 31 U/L (4-49); AST 19 U/L (17-59); African American GFR (CKD) >90 (>60 ml/min/1.73 sqM); Albumin 3.3 g/dL (3.5-5.0); Albumin/Globulin Ratio 1.3; Alkaline Phosphatase 39 U/L (38-126); Anion Gap 9 mmol/L; Blood Urea Nitrogen 17 mg/dL (9-20); Calcium 8.3 mg/dL (8.4-10.2); Carbon Dioxide 21 mmol/L (22-30); Chloride 109 mmol/L (98-107); Globulin 2.5 g/dL; Glucose 122 mg/dL (74-99); Non-African American GFR(CKD) >90 (>60 ml/min/1.73 sqM); Potassium 4.6 mmol/L (3.5-5.1); Sodium 139 mmol/L (137-145); Total Bilirubin 1.9 mg/dL (0.2-1.3); Total Protein 5.8 g/dL (6.3-8.2); Uric Acid 2.8 mg/dL (3.5-8.5)
[2022-03-08 07:13] LABS: WBC 1.3 k/uL (3.8-10.6)
[2022-03-08 07:14] LABS: Platelet Count 15 k/uL (150-450)
[2022-03-08] MEDS: FOLIC ACID 1 MG TAB PO SCH (08:55)
[2022-03-08] MEDS: CYANOCOBALAMIN 500 MCG TAB PO SCH (08:55)
[2022-03-08] MEDS: ACYCLOVIR 200 MG CAP PO SCH ×2 (08:55→20:10)
[2022-03-08] MEDS: FLUCONAZOLE 100 MG TAB PO SCH (08:56)
[2022-03-08] MEDS: polyethylene glycoL 3350 17 GM POWD.PACK PO SCH (08:57)
[2022-03-08] MEDS: allopurinoL 300 MG TAB PO SCH (08:58)
--- NOTE | 2022-03-08 13:06 | P.PN ---
Subjective Progress Note Date: 03/08/22 Principal diagnosis: Confirmed AML Day 6 induction, CBC stable, no transfusions needed. Increased cough Objective - Vital Signs Vital signs: Vital Signs Temp 98.0 F 03/08/22 08:00 Pulse 64 03/08/22 08:00 Resp 16 03/08/22 08:00 BP 142/80 03/08/22 08:00 Pulse Ox 98 03/08/22 08:00 FiO2 Intake & Output 03/07/22 03/08/22 03/08/22 18:59 06:59 18:59 Intake Total 1200 Balance 1200 Intake: Intake, IV Titration 1200 Amount Sodium Chloride 0.9% 1, 1200 000 ml @ 125 mls/hr IV . Q8H [facility] Rx#:[id number] Other: Voiding Method Toilet Toilet # Voids 2 - Exam - EENT Eyes: EOMI ENT: NA/AT - Respiratory Respiratory: bilateral: CTA - Cardiovascular Rhythm: regular - Gastrointestinal General gastrointestinal: soft - Integumentary Integumentary: pale - Neurologic Neurologic: CNII-XII intact - Musculoskeletal Musculoskeletal: generalized weakness, strength equal bilaterally - Psychiatric Psychiatric: A&O x's 3, appropriate affect, intact judgment & insight - Labs CBC & Chem 7: 03/08/22 06:23 03/08/22 06:23 Labs: Abnormal Lab Results - Last 24 Hours (Table) 03/06/22 03/07/22 03/07/22 Range/Units 12:15 07:10 07:10 WBC 1.3 L* (3.8-10.6) k/uL RBC 2.36 L (4.30-5.90) m/uL Hgb 7.5 L (13.0-17.5) gm/dL Hct 22.0 L (39.0-53.0) % RDW 16.8 H (11.5-15.5) % Plt Count 17 L* (150-450) k/uL Chloride (98-107) mmol/L Carbon Dioxide (22-30) mmol/L Anion Gap 6.60 L (10.00-18.00) mmol/L BUN/Creatinine Ratio 24.57 H (12.00-20.00) Ratio Glucose 124 H (70-110) mg/dL Uric Acid 3.0 L (3.7-8.7) mg/dL Calcium 8.5 L (8.7-10.3) mg/dL Total Bilirubin 2.50 H (0.30-1.20) mg/dL AST 13 L (14-35) U/L Lactate Dehydrogenase 266 H (120-246) U/L Total Protein 5.3 L (6.2-8.2) g/dL Albumin 3.6 L (3.8-4.9) g/dL Crossmatch See Detail 03/08/22 03/08/22 Range/Units 06:23 06:23 WBC 1.3 L* (3.8-10.6) k/uL RBC 2.46 L (4.30-5.90) m/uL Hgb 7.8 L (13.0-17.5) gm/dL Hct 22.7 L (39.0-53.0) % RDW 16.2 H (11.5-15.5) % Plt Count 15 L* (150-450) k/uL Chloride 109 H (98-107) mmol/L Carbon Dioxide 21 L (22-30) mmol/L Anion Gap (10.00-18.00) mmol/L BUN/Creatinine Ratio (12.00-20.00) Ratio Glucose 122 H (70-110) mg/dL Uric Acid 2.8 L (3.7-8.7) mg/dL Calcium 8.3 L (8.7-10.3) mg/dL Total Bilirubin 1.9 H (0.30-1.20) mg/dL AST (14-35) U/L Lactate Dehydrogenase (120-246) U/L Total Protein 5.8 L (6.2-8.2) g/dL Albumin 3.3 L (3.8-4.9) g/dL Crossmatch Assessment and Plan (1) AML (acute myelogenous leukemia) Narrative/Plan: New Diagnosis Day one with 7 plus 3 Antiemetics Daily labs Close monitoring Day 7 tonight Current Visit: Yes Status: Acute Code(s): C92.00 - ACUTE MYELOBLASTIC LEUKEMIA, NOT HAVING ACHIEVED REMISSION SNOMED Code(s): 85403126 (2) Leukocytosis Narrative/Plan: Increased Monocytes, Myelocytes,Lymphocytes, increased Blasts on peripheral smear, Results consistent with AML on Chemo Current Visit: Yes Status: Acute Priority: High Code(s): D72.829 - ELEVATED WHITE BLOOD CELL COUNT, UNSPECIFIED SNOMED Code(s): 371392414 (3) Thrombocytopenia Narrative/Plan: NO ASA, AC therapy, NSAIDS. Transfusions with Irradiated blood products only. >10K Stablentoday no transfusion needed Current Visit: Yes Status: Acute Code(s): D69.6 - THROMBOCYTOPENIA, UNSPECIFIED SNOMED Code(s): 990906995 (4) Coagulopathy Current Visit: Yes Status: Acute Code(s): D68.9 - COAGULATION DEFECT, UNSPECIFIED SNOMED Code(s): 73843478 Plan: Recheck Coags, Uric acid, LDD and CBC CMP daily Prelim Acute Myeloid Leukemmia - Start 7+3 Inductions Discussed in detail with patient, mother and father all questions answered Bone marrow biopsy today Continue Day 7 of Induction, Daily labs Status post EVASHIELD for COVID prevention in high risk Transfuse one unit PRBC irradiated today. Chest Xray and tessalon pears ordered No transfusions needed today Dr. Waller: I have completed the full history and physical and developed the above impression and plan, agree with dictation, dictated as a scribe.
--- NOTE | 2022-03-08 13:33 | XR ---
EXAMINATION TYPE: XR chest 2V DATE OF EXAM: 03/08/2022 COMPARISON: 02/25/2022 TECHNIQUE: PA and lateral views submitted. HISTORY: Shortness of breath FINDINGS: The lungs are clear and there is no pneumothorax, pleural effusion, or focal pneumonia. Heart size normal with no overt failure. Right-sided central line with tip overlying SVC. IMPRESSION: 1. No acute process.
--- NOTE | 2022-03-08 18:11 | P.PN ---
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 He had been started on antibiotics for possible pneumonia and blood work was ordered. This showed significant thrombocytopenia since told to come to the ER. 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 Oncology started him on induction chemotherapy. Patient seen and examined at bedside with family present. He complains of poor sleep pattern, and cough. + frequent stools, He denies chest pain, shortness breath, nausea, vomiting. General: non toxic, no distress, appears at stated age Derm: warm, dry Head: atraumatic, normocephalic, symmetric Eyes: EOMI, no lid lag, anicteric sclera Mouth: no lip lesion, mucus membranes moist Cardiovascular: S1S2 reg, no murmur, positive posterior tibial pulse bilateral, Lungs: Ronchi bilateral bilateral, no rhonchi, no rales , no accessory muscle use Abdominal: soft, nontender to palpation, no guarding, no appreciable organomegaly Ext: no gross muscle atrophy, no edema, no contractures Neuro: CN II-XI grossly intact, no focal neuro deficits Psych: Alert, oriented, appropriate affect Assessment/plan: Acute myelogenous leukemia Anemia Thrombocytopenia -Oncology recommendations -On induction chemotherapy - no indication for transfusion at this time -Status post 1 unit packed red blood cells on 03/06 -Follow labs closely. Cough - CXR with NAP - tessalon History of PKU -Has been off diet for years per mother Obesity with BMI 35.6 -Ensure adequate oral intake received chemotherapy. DVT prophylaxis: SCDs due to thrombocytopenia Discussed with: Patient, nursing, mother Anticipated discharge: Undetermined Anticipated discharge place: Undetermined A total of 27 minutes was spent on the care of this complex patient more than 50% of the time was spent in counseling and care coordination. Objective - Vital Signs Vital signs: Vital Signs Temp 98.2 F 03/08/22 16:00 Pulse 84 03/08/22 16:00 Resp 16 03/08/22 16:00 BP 144/82 03/08/22 16:00 Pulse Ox 99 03/08/22 16:00 FiO2 Intake & Output 03/07/22 03/08/22 03/08/22 18:59 06:59 18:59 Intake Total 1200 Balance 1200 Intake: Intake, IV Titration 1200 Amount Sodium Chloride 0.9% 1, 1200 000 ml @ 125 mls/hr IV . Q8H [facility] Rx#:[id number] Other: Voiding Method Toilet Toilet Toilet # Voids 2 - Labs CBC & Chem 7: 03/08/22 06:23 03/08/22 06:23 Labs: Abnormal Lab Results - Last 24 Hours (Table) 03/08/22 03/08/22 Range/Units 06:23 06:23 WBC 1.3 L* (3.8-10.6) k/uL RBC 2.46 L (4.30-5.90) m/uL Hgb 7.8 L (13.0-17.5) gm/dL Hct 22.7 L (39.0-53.0) % RDW 16.2 H (11.5-15.5) % Plt Count 15 L* (150-450) k/uL Chloride 109 H (98-107) mmol/L Carbon Dioxide 21 L (22-30) mmol/L Glucose 122 H (74-99) mg/dL Uric Acid 2.8 L (3.5-8.5) mg/dL Calcium 8.3 L (8.4-10.2) mg/dL Total Bilirubin 1.9 H (0.2-1.3) mg/dL Total Protein 5.8 L (6.3-8.2) g/dL Albumin 3.3 L (3.5-5.0) g/dL
[2022-03-08] MEDS: OLANZapine 5 MG TAB PO SCH (20:10)
[2022-03-08] MEDS: SENNOSIDES 8.6 MG TAB PO SCH (20:10)
[2022-03-09] MEDS: SALT AND SODA MOUTHWASH 1,000 ML PO SCH ×5 (04:14→20:44)
[2022-03-09 08:01] LABS: Anisocytosis Slight; MCHC 34.9 g/dL (31.0-37.0); MCV 91.7 fL (80.0-100.0); Mean Platelet Volume 8.9; Poikilocytosis Slight; RBC 1.98 m/uL (4.30-5.90); RDW 16.2 % (11.5-15.5)
[2022-03-09 08:03] LABS: HGB 6.3 gm/dL (13.0-17.5); WBC 0.5 k/uL (3.8-10.6)
[2022-03-09 08:04] LABS: HCT 18.2 % (39.0-53.0)
[2022-03-09 08:08] LABS: Platelet Count 11 k/uL (150-450)
[2022-03-09 08:13] LABS: Potassium 4.5 mmol/L (3.5-5.1)
[2022-03-09 08:16] LABS: ALT 27 U/L (4-49); AST 17 U/L (17-59); African American GFR (CKD) >90 (>60 ml/min/1.73 sqM); Albumin 2.9 g/dL (3.5-5.0); Albumin/Globulin Ratio 1.3; Alkaline Phosphatase 33 U/L (38-126); Anion Gap 5 mmol/L; Blood Urea Nitrogen 16 mg/dL (9-20); Carbon Dioxide 22 mmol/L (22-30); Chloride 111 mmol/L (98-107); Globulin 2.3 g/dL; Glucose 117 mg/dL (74-99); LDH 431 U/L (313-618); Non-African American GFR(CKD) >90 (>60 ml/min/1.73 sqM); Sodium 138 mmol/L (137-145); Total Bilirubin 1.3 mg/dL (0.2-1.3); Total Protein 5.2 g/dL (6.3-8.2); Uric Acid 2.8 mg/dL (3.5-8.5)
[2022-03-09 08:17] LABS: Magnesium 2.1 mg/dL (1.6-2.3)
[2022-03-09] MEDS: FLUCONAZOLE 100 MG TAB PO SCH (08:54)
[2022-03-09] MEDS: ACYCLOVIR 200 MG CAP PO SCH ×2 (08:54→20:42)
[2022-03-09] MEDS: FOLIC ACID 1 MG TAB PO SCH (08:54)
[2022-03-09] MEDS: allopurinoL 300 MG TAB PO SCH (08:54)
[2022-03-09] MEDS: CYANOCOBALAMIN 500 MCG TAB PO SCH (08:54)
[2022-03-09] MEDS: polyethylene glycoL 3350 17 GM POWD.PACK PO SCH (08:55)
[2022-03-09] MEDS: SODIUM CHLORIDE 0.9% 1,000 ML IV SCH ×2 (12:18→16:07)
--- NOTE | 2022-03-09 14:07 | P.PN ---
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 He had been started on antibiotics for possible pneumonia and blood work was ordered. This showed significant thrombocytopenia since told to come to the ER. 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 Oncology started him on induction chemotherapy. Patient seen and examined at bedside with family present. Cough is getting better, eating and drinking well, stools are acceptable. and sleep pattern is getting slightly better. General: non toxic, no distress, appears at stated age Derm: warm, dry Head: atraumatic, normocephalic, symmetric Eyes: EOMI, no lid lag, anicteric sclera Mouth: no lip lesion, mucus membranes moist Cardiovascular: S1S2 reg, no murmur, positive posterior tibial pulse bilateral, Lungs: Ronchi bilateral bilateral, no rhonchi, no rales , no accessory muscle use Abdominal: soft, nontender to palpation, no guarding, no appreciable organomegaly Ext: no gross muscle atrophy, no edema, no contractures Neuro: CN II-XI grossly intact, no focal neuro deficits Psych: Alert, oriented, appropriate affect Assessment/plan: Acute myelogenous leukemia Pancytopenia- chemo induced with neutropenia, Anemia,and Thrombocytopenia -Oncology recommendations -On induction chemotherapy - 1 additional unti pRBC, for a total of 3 -Follow labs closely. Cough - CXR with NAP - tessalon History of PKU -Has been off diet for years per mother Obesity with BMI 35.6 -Ensure adequate oral intake received chemotherapy. DVT prophylaxis: SCDs due to thrombocytopenia Discussed with: Patient, nursing, mother Anticipated discharge: Undetermined Anticipated discharge place: Undetermined A total of 27 minutes was spent on the care of this complex patient more than 50% of the time was spent in counseling and care coordination. Objective - Vital Signs Vital signs: Vital Signs Temp 98.1 F 03/09/22 12:00 Pulse 89 03/09/22 12:00 Resp 16 03/09/22 12:00 BP 158/69 03/09/22 12:00 Pulse Ox 99 03/09/22 12:00 FiO2 Intake & Output 03/08/22 03/09/22 03/09/22 18:59 06:59 18:59 Intake Total 1460 1747.9 0 Balance 1460 1747.9 0 Intake: Intake, IV Titration 1460 1747.9 Amount Cytarabine/Pf 400 mg In 260 260.4 Sodium Chloride 0.9% 500 ml 500 ml @ 21.667 mls/hr IV DAILY@1600 [facility] Rx#: [id number] Ondansetron 16 mg In 50 Sodium Chloride 0.9% 50 ml @ 232 mls/hr IVPB DAILY@1600 [facility] Rx#: [id number] Sodium Chloride 0.9% 1, 1200 1437.5 000 ml @ 125 mls/hr IV . Q8H [facility] Rx#:[id number] Blood Product 0 Rc Irr As1 Unit 0 [id number] Other: Voiding Method Toilet Toilet Toilet # Bowel Movements 3 - Labs CBC & Chem 7: 03/09/22 07:11 03/09/22 07:11 Labs: Abnormal Lab Results - Last 24 Hours (Table) 03/06/22 03/06/22 03/09/22 Range/Units 06:17 12:15 07:11 WBC 0.5 L* (3.8-10.6) k/uL RBC 1.98 L (4.30-5.90) m/uL Hgb 6.3 L* D (13.0-17.5) gm/dL Hct 18.2 L* (39.0-53.0) % RDW 16.2 H (11.5-15.5) % Plt Count 11 L* (150-450) k/uL Chloride (98-107) mmol/L Glucose (74-99) mg/dL Uric Acid (3.5-8.5) mg/dL Calcium (8.4-10.2) mg/dL Alkaline Phosphatase (38-126) U/L Total Protein (6.3-8.2) g/dL Albumin (3.5-5.0) g/dL Vitamin D 25-Hydroxy 9.5 L (30.0-100.0) ng/mL Crossmatch See Detail 03/09/22 Range/Units 07:11 WBC (3.8-10.6) k/uL RBC (4.30-5.90) m/uL Hgb (13.0-17.5) gm/dL Hct (39.0-53.0) % RDW (11.5-15.5) % Plt Count (150-450) k/uL Chloride 111 H (98-107) mmol/L Glucose 117 H (74-99) mg/dL Uric Acid 2.8 L (3.5-8.5) mg/dL Calcium 8.0 L (8.4-10.2) mg/dL Alkaline Phosphatase 33 L (38-126) U/L Total Protein 5.2 L (6.3-8.2) g/dL Albumin 2.9 L (3.5-5.0) g/dL Vitamin D 25-Hydroxy (30.0-100.0) ng/mL Crossmatch
[2022-03-09] MEDS: OLANZapine 5 MG TAB PO SCH (20:42)
[2022-03-09] MEDS: SENNOSIDES 8.6 MG TAB PO SCH (20:44)
--- NOTE | 2022-03-09 21:58 | P.PN ---
Subjective Progress Note Date: 03/09/22 Principal diagnosis: Confirmed AML Transfusion today, still with cough Objective - Vital Signs Vital signs: Vital Signs Temp 98.7 F 03/09/22 20:00 Pulse 83 03/09/22 20:00 Resp 18 03/09/22 20:00 BP 139/84 03/09/22 20:00 Pulse Ox 98 03/09/22 20:00 FiO2 Intake & Output 03/09/22 03/09/22 03/10/22 06:59 18:59 06:59 Intake Total 1747.9 1810 Balance 1747.9 1810 Intake: Intake, IV Titration 1747.9 1500 Amount Cytarabine/Pf 400 mg In 260.4 Sodium Chloride 0.9% 500 ml 500 ml @ 21.667 mls/hr IV DAILY@1600 [facility] Rx#: [id number] Ondansetron 16 mg In 50 Sodium Chloride 0.9% 50 ml @ 232 mls/hr IVPB DAILY@1600 [facility] Rx#: [id number] Sodium Chloride 0.9% 1, 1437.5 1500 000 ml @ 125 mls/hr IV . Q8H [facility] Rx#:[id number] Blood Product 310 Rc Irr As1 Unit 310 [id number] Other: Voiding Method Toilet Toilet - Exam - EENT Eyes: EOMI ENT: NA/AT - Respiratory Respiratory: bilateral: CTA - Cardiovascular Rhythm: regular - Gastrointestinal General gastrointestinal: soft - Integumentary Integumentary: pale - Neurologic Neurologic: CNII-XII intact - Musculoskeletal Musculoskeletal: generalized weakness, strength equal bilaterally - Psychiatric Psychiatric: A&O x's 3, appropriate affect, intact judgment & insight - Labs CBC & Chem 7: 03/09/22 07:11 03/09/22 07:11 Labs: Abnormal Lab Results - Last 24 Hours (Table) 03/06/22 03/06/22 03/09/22 Range/Units 06:17 12:15 07:11 WBC 0.5 L* (3.8-10.6) k/uL RBC 1.98 L (4.30-5.90) m/uL Hgb 6.3 L* D (13.0-17.5) gm/dL Hct 18.2 L* (39.0-53.0) % RDW 16.2 H (11.5-15.5) % Plt Count 11 L* (150-450) k/uL Chloride (98-107) mmol/L Glucose (74-99) mg/dL Uric Acid (3.5-8.5) mg/dL Calcium (8.4-10.2) mg/dL Alkaline Phosphatase (38-126) U/L Total Protein (6.3-8.2) g/dL Albumin (3.5-5.0) g/dL Vitamin D 25-Hydroxy 9.5 L (30.0-100.0) ng/mL Crossmatch See Detail 03/09/22 Range/Units 07:11 WBC (3.8-10.6) k/uL RBC (4.30-5.90) m/uL Hgb (13.0-17.5) gm/dL Hct (39.0-53.0) % RDW (11.5-15.5) % Plt Count (150-450) k/uL Chloride 111 H (98-107) mmol/L Glucose 117 H (74-99) mg/dL Uric Acid 2.8 L (3.5-8.5) mg/dL Calcium 8.0 L (8.4-10.2) mg/dL Alkaline Phosphatase 33 L (38-126) U/L Total Protein 5.2 L (6.3-8.2) g/dL Albumin 2.9 L (3.5-5.0) g/dL Vitamin D 25-Hydroxy (30.0-100.0) ng/mL Crossmatch Assessment and Plan (1) AML (acute myelogenous leukemia) Narrative/Plan: New Diagnosis Day one with 7 plus 3 Antiemetics Daily labs Close monitoring Day 7 tonight Current Visit: Yes Status: Acute Code(s): C92.00 - ACUTE MYELOBLASTIC LEUK EMIA, NOT HAVING ACHIEVED REMISSION SNOMED Code(s): 21719861 (2) Leukocytosis Narrative/Plan: Increased Monocytes, Myelocytes,Lymphocytes, increased Blasts on peripheral smear, Results consistent with AML on Chemo Current Visit: Yes Status: Acute Priority: High Code(s): D72.829 - ELEVATED WHITE BLOOD CELL COUNT, UNSPECIFIED SNOMED Code(s): 449015675 (3) Thrombocytopenia Narrative/Plan: NO ASA, AC therapy, NSAIDS. Transfusions with Irradiated blood products only. >10K Stablentoday no transfusion needed Current Visit: Yes Status: Acute Code(s): D69.6 - THROMBOCYTOPENIA, UNSPECIFIED SNOMED Code(s): 891871379 (4) Coagulopathy Current Visit: Yes Status: Acute Code(s): D68.9 - COAGULATION DEFECT, UNSPECIFIED SNOMED Code(s): 16402448 Plan: Recheck Coags, Uric acid, LDD and CBC CMP daily Prelim Acute Myeloid Leukemmia - Start 7+3 Inductions Discussed in detail with patient, mother and father all questions answered Bone marrow biopsy today Continue Day 7 of Induction, Daily labs Status post EVASHIELD for COVID prevention in high risk Transfuse one unit PRBC irradiated today. Chest Xray and tessalon pears ordered No transfusions needed today Dr. Waller: I have completed the full history and physical and developed the above impression and plan, agree with dictation, dictated as a scribe.
[2022-03-10] MEDS: SALT AND SODA MOUTHWASH 1,000 ML PO SCH ×6 (02:16→23:26)
[2022-03-10] MEDS: SODIUM CHLORIDE 0.9% 1,000 ML IV SCH ×4 (02:17→23:00)
[2022-03-10] MEDS: ALPRAZolam 0.25 MG TAB PO PRN ×2 (08:32→20:39)
[2022-03-10] MEDS: FOLIC ACID 1 MG TAB PO SCH (08:33)
[2022-03-10] MEDS: CYANOCOBALAMIN 500 MCG TAB PO SCH (08:33)
[2022-03-10] MEDS: ACYCLOVIR 200 MG CAP PO SCH ×2 (08:33→20:40)
[2022-03-10] MEDS: allopurinoL 300 MG TAB PO SCH (08:33)
[2022-03-10 08:34] LABS: MCH 30.8 pg (25.0-35.0); MCHC 34.5 g/dL (31.0-37.0); MCV 89.2 fL (80.0-100.0); Mean Platelet Volume 11.3; Poikilocytosis Slight; RBC 2.24 m/uL (4.30-5.90); RDW 15.2 % (11.5-15.5)
[2022-03-10] MEDS: polyethylene glycoL 3350 17 GM POWD.PACK PO SCH (08:34)
[2022-03-10 08:52] LABS: ALT 24 U/L (4-49); AST 15 U/L (17-59); African American GFR (CKD) >90 (>60 ml/min/1.73 sqM); Albumin 2.9 g/dL (3.5-5.0); Albumin/Globulin Ratio 1.4; Alkaline Phosphatase 35 U/L (38-126); Anion Gap 2 mmol/L; Blood Urea Nitrogen 16 mg/dL (9-20); Calcium 7.8 mg/dL (8.4-10.2); Carbon Dioxide 25 mmol/L (22-30); Chloride 109 mmol/L (98-107); Globulin 2.1 g/dL; Glucose 84 mg/dL (74-99); HGB 6.9 gm/dL (13.0-17.5); LDH 377 U/L (313-618); Non-African American GFR(CKD) >90 (>60 ml/min/1.73 sqM); Potassium 3.9 mmol/L (3.5-5.1); Sodium 136 mmol/L (137-145); Total Bilirubin 1.6 mg/dL (0.2-1.3); Uric Acid 2.5 mg/dL (3.5-8.5); WBC 1.3 k/uL (3.8-10.6)
[2022-03-10 08:55] LABS: Platelet Count 8 k/uL (150-450)
[2022-03-10] MEDS: FLUCONAZOLE 100 MG TAB PO SCH (08:57)
--- NOTE | 2022-03-10 16:51 | P.PN ---
Subjective Progress Note Date: 03/10/22 Principal diagnosis: Confirmed AML rEQUIRING TRANSFUSION pLATELETS AND prbc IRRADIATED TODAY. Objective - Vital Signs Vital signs: Vital Signs Temp 97.9 F 03/10/22 12:52 Pulse 83 03/10/22 12:52 Resp 16 03/10/22 12:52 BP 112/69 03/10/22 12:52 Pulse Ox 100 03/10/22 12:52 FiO2 Intake & Output 03/09/22 03/10/22 03/10/22 18:59 06:59 18:59 Intake Total 1810 1575.03 Balance 1810 1575.03 Intake: Intake, IV Titration 1500 1575.03 Amount Cytarabine/Pf 400 mg In 195.03 Sodium Chloride 0.9% 500 ml 500 ml @ 21.667 mls/hr IV DAILY@1600 [facility] Rx#: [id number] Sodium Chloride 0.9% 1, 1500 1380 000 ml @ 125 mls/hr IV . Q8H [facility] Rx#:[id number] Blood Product 310 Rc Irr As1 Unit 310 [id number] Other: Voiding Method Toilet Toilet Toilet # Voids 2 - Exam - EENT Eyes: EOMI ENT: NA/AT - Respiratory Respiratory: bilateral: CTA - Cardiovascular Rhythm: regular - Gastrointestinal General gastrointestinal: soft - Integumentary Integumentary: pale - Neurologic Neurologic: CNII-XII intact - Musculoskeletal Musculoskeletal: generalized weakness, strength equal bilaterally - Psychiatric Psychiatric: A&O x's 3, appropriate affect, intact judgment & insight - Labs CBC & Chem 7: 03/10/22 08:16 03/10/22 08:16 Labs: Abnormal Lab Results - Last 24 Hours (Table) 03/06/22 03/10/22 03/10/22 Range/Units 12:15 08:16 08:16 WBC 1.3 L* (3.8-10.6) k/uL RBC 2.24 L (4.30-5.90) m/uL Hgb 6.9 L* (13.0-17.5) gm/dL Hct 20.0 L (39.0-53.0) % Plt Count 8 L* (150-450) k/uL Sodium 136 L (137-145) mmol/L Chloride 109 H (98-107) mmol/L Creatinine 0.61 L (0.66-1.25) mg/dL Uric Acid 2.5 L (3.5-8.5) mg/dL Calcium 7.8 L (8.4-10.2) mg/dL Total Bilirubin 1.6 H (0.2-1.3) mg/dL AST 15 L (17-59) U/L Alkaline Phosphatase 35 L (38-126) U/L Total Protein 5.0 L (6.3-8.2) g/dL Albumin 2.9 L (3.5-5.0) g/dL Crossmatch See Detail Assessment and Plan (1) AML (acute myelogenous leukemia) Narrative/Plan: New Diagnosis Day one with 7 plus 3 Antiemetics Daily labs Close monitoring Day 5 tonight Current Visit: Yes Status: Acute Code(s): C92.00 - ACUTE MYELOBLASTIC LEUKEMIA, NOT HAVING ACHIEVED REMISSION SNOMED Code(s): 44567803 (2) Leukocytosis Narrative/Plan: Increased Monocytes, Myelocytes,Lymphocytes, increased Blasts on peripheral smear, Current Visit: Yes Status: Acute Priority: High Code(s): D72.829 - ELEVATED WHITE BLOOD CELL COUNT, UNSPECIFIED SNOMED Code(s): 485120350 (3) Thrombocytopenia Narrative/Plan: NO ASA, AC therapy, NSAIDS. Transfusions with Irradiated blood products only. >10K Current Visit: Yes Status: Acute Code(s): D69.6 - THROMBOCYTOPENIA, UNSPECIFIED SNOMED Code(s): 480695082 (4) Coagulopathy Current Visit: Yes Status: Acute Code(s): D68.9 - COAGULATION DEFECT, UNSPECIFIED SNOMED Code(s): 15030866 Plan: Recheck Coags, Uric acid, LDD and CBC CMP daily Prelim Acute Myeloid Leukemmia - Start 7+3 Inductions Discussed in detail with patient, mother and father all questions answered Bone marrow biopsy today Status Post Induction, Daily labs Status post EVASHIELD for COVID prevention in high risk Transfuse one unit platelets and PRBC irradiated today. Will be ok to discharge on prophylaxic antibacterial antifungal and have cbc sun, sun, sunday in offie Cipro, Nystatin, Ondansetran, and Acyclovir has been sent to pharmacy and office notified to set up for Sunday, Sun, Sunday CBC monitoring De. Attest: I have completed the full history and physical and agree with above dictation, dictated as a ascribe
[2022-03-10] MEDS ORDERED: TEMAZEPAM 7.5 MG CAP PO PRN (19:48)
--- NOTE | 2022-03-10 19:51 | P.PN ---
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 He had been started on antibiotics for possible pneumonia and blood work was ordered. This showed significant thrombocytopenia since told to come to the ER. 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 Oncology started him on induction chemotherapy. Patient seen and examined at bedside with family present. Tiffanie not sleep again last night, cough managebale, eating and drinking okay, no significant diarrhea. General: non toxic, no distress, appears at stated age Derm: warm, dry Head: atraumatic, normocephalic, symmetric Eyes: EOMI, no lid lag, anicteric sclera Mouth: no lip lesion, mucus membranes moist, small blood blister left lip Cardiovascular: S1S2 reg, no murmur, positive posterior tibial pulse bilateral, Lungs: Ronchi bilateral bilateral, no rhonchi, no rales , no accessory muscle use Abdominal: soft, nontender to palpation, no guarding, no appreciable organomegaly Ext: no gross muscle atrophy, no edema, no contractures Neuro: CN II-XI grossly intact, no focal neuro deficits Psych: Alert, oriented, appropriate affect Assessment/plan: Acute myelogenous leukemia Pancytopenia- chemo induced with neutropenia, Anemia,and Thrombocytopenia -Oncology recommendations -On induction chemotherapy - 1 additional unit pRBC, for a total of 4, 1 unit plt -Follow labs closely. Cough - CXR with NAP - tessalon Insomnia - restoril History of PKU -Has been off diet for years per mother Obesity with BMI 35.6 -Ensure adequate oral intake received chemotherapy. DVT prophylaxis: SCDs due to thrombocytopenia Discussed with: Patient, nursing, mother Anticipated discharge: In AM Anticipated discharge place: home A total of 27 minutes was spent on the care of this complex patient more than 50% of the time was spent in counseling and care coordination. Objective - Vital Signs Vital signs: Vital Signs Temp 97.7 F 03/10/22 19:35 Pulse 96 03/10/22 19:35 Resp 18 03/10/22 19:35 BP 133/77 03/10/22 19:35 Pulse Ox 100 03/10/22 19:35 FiO2 Intake & Output 0603/10/22 03/11/22 06:59 18:59 06:59 Intake Total 1575.03 1230 Balance 1575.03 1230 Intake: Intake, IV Titration 1575.03 720 Amount Cytarabine/Pf 400 mg In 195.03 Sodium Chloride 0.9% 500 ml 500 ml @ 21.667 mls/hr IV DAILY@1600 [facility] Rx#: [id number] Sodium Chloride 0.9% 1, 1380 720 000 ml @ 125 mls/hr IV . Q8H BREANNA Rx#:[id number] Blood Product 510 Platelet Pheresis Pas 255 Psoralen Unit [id number] Rc Irr As1 Unit 0 [id number] Other: Voiding Method Toilet Toilet Toilet # Voids 2 1 - Labs CBC & Chem 7: 03/10/22 08:16 03/10/22 08:16 Labs: Abnormal Lab Results - Last 24 Hours (Table) 03/10/22 03/10/22 03/10/22 Range/Units 08:16 08:16 11:01 WBC 1.3 L* (3.8-10.6) k/uL RBC 2.24 L (4.30-5.90) m/uL Hgb 6.9 L* (13.0-17.5) gm/dL Hct 20.0 L (39.0-53.0) % Plt Count 8 L* (150-450) k/uL Sodium 136 L (137-145) mmol/L Chloride 109 H (98-107) mmol/L Creatinine 0.61 L (0.66-1.25) mg/dL Uric Acid 2.5 L (3.5-8.5) mg/dL Calcium 7.8 L (8.4-10.2) mg/dL Total Bilirubin 1.6 H (0.2-1.3) mg/dL AST 15 L (17-59) U/L Alkaline Phosphatase 35 L (38-126) U/L Total Protein 5.0 L (6.3-8.2) g/dL Albumin 2.9 L (3.5-5.0) g/dL Crossmatch See Detail
[2022-03-10] MEDS: OLANZapine 5 MG TAB PO SCH (20:40)
[2022-03-10] MEDS: SENNOSIDES 8.6 MG TAB PO SCH (20:40)
[2022-03-11] MEDS: SALT AND SODA MOUTHWASH 1,000 ML PO SCH ×5 (05:18→23:19)
[2022-03-11] MEDS: polyethylene glycoL 3350 17 GM POWD.PACK PO SCH (08:28)
[2022-03-11 08:32] LABS: HCT 20.8 % (39.0-53.0); HGB 7.2 gm/dL (13.0-17.5); MCH 30.4 pg (25.0-35.0); MCHC 34.5 g/dL (31.0-37.0); MCV 88.1 fL (80.0-100.0); Mean Platelet Volume 15.4; Poikilocytosis Slight; RBC 2.36 m/uL (4.30-5.90); RDW 15.5 % (11.5-15.5)
[2022-03-11] MEDS: ACETAMINOPHEN TAB 325 MG TAB PO PRN ×2 (08:32→19:58)
[2022-03-11] MEDS: ALPRAZolam 0.25 MG TAB PO PRN ×2 (08:32→20:58)
[2022-03-11] MEDS: CYANOCOBALAMIN 500 MCG TAB PO SCH (08:33)
[2022-03-11] MEDS: ACYCLOVIR 200 MG CAP PO SCH ×2 (08:33→20:58)
[2022-03-11 08:34] LABS: Platelet Count 13 k/uL (150-450); WBC 0.9 k/uL (3.8-10.6)
[2022-03-11] MEDS: FOLIC ACID 1 MG TAB PO SCH (08:34)
[2022-03-11] MEDS: FLUCONAZOLE 100 MG TAB PO SCH (08:34)
[2022-03-11] MEDS: SODIUM CHLORIDE 0.9% 1,000 ML IV SCH (08:36)
[2022-03-11] MEDS: allopurinoL 300 MG TAB PO SCH (08:36)
[2022-03-11 08:48] LABS: ALT 27 U/L (4-49); AST 18 U/L (17-59); African American GFR (CKD) >90 (>60 ml/min/1.73 sqM); Albumin/Globulin Ratio 1.4; Alkaline Phosphatase 37 U/L (38-126); Anion Gap 2 mmol/L; Blood Urea Nitrogen 15 mg/dL (9-20); Calcium 7.8 mg/dL (8.4-10.2); Carbon Dioxide 27 mmol/L (22-30); Chloride 104 mmol/L (98-107); Globulin 2.2 g/dL; Glucose 91 mg/dL (74-99); Non-African American GFR(CKD) >90 (>60 ml/min/1.73 sqM); Potassium 4.2 mmol/L (3.5-5.1); Sodium 133 mmol/L (137-145); Total Bilirubin 2.4 mg/dL (0.2-1.3); Total Protein 5.2 g/dL (6.3-8.2)
[2022-03-11] MEDS ORDERED: VANCOMYCIN IV PER PHARMACY 1 EACH MISC MISCELLANE PRN (09:00)
[2022-03-11] MEDS ORDERED: CEFEPIME 1 GM in SODIUM CHLORIDE 0.9% 50 ML IVPB SCH (09:00)
[2022-03-11] MEDS ORDERED: SODIUM CHLORIDE 0.9% 500 ML 500 ML IV ONE (09:14)
--- NOTE | 2022-03-11 09:27 | XR ---
EXAMINATION TYPE: XR chest 1V portable DATE OF EXAM: 03/11/2022 9:17 AM COMPARISON: Chest radiographs from 03/08/2022 TECHNIQUE: XR chest 1V portable Portable AP radiograph of the chest.. CLINICAL INDICATION:Male, 26 years old with history of pneumonia; FINDINGS: Lungs/Pleura: There is no evidence of pleural effusion, focal consolidation, or pneumothorax. Pulmonary vascularity: Unremarkable. Heart/mediastinum: Cardiomediastinal silhouette is unremarkable. Musculoskeletal: No acute osseous pathology. IMPRESSION: No acute cardiopulmonary disease/process.
[2022-03-11] MEDS: LACTATED RINGERS 1,000 ML IV SCH ×2 (10:03→23:19)
[2022-03-11] MEDS: CEFEPIME 2 GM in SODIUM CHLORIDE 0.9% 100 ML IVPB SCH ×2 (10:13→16:52)
[2022-03-11] MEDS ORDERED: VANCOMYCIN 2,250 MG in SODIUM CHLORIDE 0.9% 500 ML 500 ML IVPB ONE (11:00)
[2022-03-11] MEDS ORDERED: VANCOMYCIN 2,000 MG in SODIUM CHLORIDE 0.9% 500 ML 500 ML IVPB ONE (11:00)
[2022-03-11 11:04] LABS: Magnesium 1.9 mg/dL (1.6-2.3); Phosphorus 3.9 mg/dL (2.5-4.5)
--- NOTE | 2022-03-11 13:42 | P.PN ---
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 He had been started on antibiotics for possible pneumonia and blood work was ordered. This showed significant thrombocytopenia since told to come to the ER. 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 Oncology started him on induction chemotherapy. He spiked a fever of 100.9 on 03/11/22 Patient seen and examined at bedside with family present. He spiked a fever this morning. + diarrhea, slept last night with sleeping pill, no has some face pain and face feels raw. Over all feels worse than yesterday, General: ill appearing, no distress, appears at stated age Derm: faint erythema left infraorbital area. warm, dry Head: atraumatic, normocephalic, symmetric Eyes: EOMI, no lid lag, anicteric sclera Mouth: no lip lesion, mucus membranes moist, small blood blister left lip Cardiovascular: S1S2 reg, no murmur, positive posterior tibial pulse bilateral, Lungs: Decreased bs bilateral, no rhonchi, no rales , no accessory muscle use Abdominal: soft, nontender to palpation, no guarding, no appreciable organomegaly Ext: no gross muscle atrophy, no edema, no contractures Neuro: CN II-XI grossly intact, no focal neuro deficits Psych: Alert, oriented, appropriate affect Assessment/plan: Neutropenic fevers - CXR stat review and NAP - blood cultures - check stool for C diff - IVF - Lactic acid - Vano and cefepime - await oncology re-eval Acute myelogenous leukemia Pancytopenia- chemo induced with neutropenia, Anemia,and Thrombocytopenia -Oncology recommendations -On induction chemotherapy - a total of 4 units pRBC, and 1 unit plt -Follow labs closely. 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 DVT prophylaxis: SCDs due to thrombocytopenia Discussed with: Patient, nursing, mother Anticipated discharge: In AM Anticipated discharge place: home A total of 27 minutes was spent on the care of this complex patient more than 50% of the time was spent in counseling and care coordination. Objective - Vital Signs Vital signs: Vital Signs Temp 98.3 F 03/11/22 10:06 Pulse 101 H 03/11/22 08:00 Resp 16 03/11/22 08:00 BP 118/69 03/11/22 07:48 Pulse Ox 96 03/11/22 07:48 FiO2 Intake & Output 03/10/22 03/11/22 03/11/22 18:59 06:59 18:59 Intake Total 1230 550 Balance 1230 550 Intake: Intake, IV Titration 720 Amount Sodium Chloride 0.9% 1, 720 000 ml @ 125 mls/hr IV . Q8H [facility] Rx#:[id number] Oral 240 Blood Product 510 310 Platelet Pheresis Pas 255 Psoralen Unit [id number] Rc Irr As1 Unit 0 310 [id number] Other: Voiding Method Toilet Toilet Toilet # Voids 1 1 # Bowel Movements 1 - Labs CBC & Chem 7: 03/11/22 08:06 03/11/22 08:06 Labs: Abnormal Lab Results - Last 24 Hours (Table) 03/10/22 03/11/22 03/11/22 Range/Units 11:01 08:06 08:06 WBC 0.9 L* (3.8-10.6) k/uL RBC 2.36 L (4.30-5.90) m/uL Hgb 7.2 L (13.0-17.5) gm/dL Hct 20.8 L (39.0-53.0) % Plt Count 13 L* D (150-450) k/uL Sodium 133 L (137-145) mmol/L Calcium 7.8 L (8.4-10.2) mg/dL Total Bilirubin 2.4 H (0.2-1.3) mg/dL Alkaline Phosphatase 37 L (38-126) U/L Total Protein 5.2 L (6.3-8.2) g/dL Albumin 3.0 L (3.5-5.0) g/dL Crossmatch See Detail
--- NOTE | 2022-03-11 16:14 | P.PN ---
Subjective Progress Note Date: 03/11/22 Pt had been complaining of somewhat nonspecific in in the nasal and sinus bones. No difficulty in breathing, swallowing or chewing. He has been complaining of some facial muscle spasms today. He also been having diarrhea, watery to semi formed, about 4-5 episodes since yesterday. He did have a fever of 100.9 today. Objective - Vital Signs Vital signs: Vital Signs Temp 98.3 F 03/11/22 14:14 Pulse 96 03/11/22 14:14 Resp 18 03/11/22 14:14 BP 119/76 03/11/22 14:14 Pulse Ox 99 03/11/22 14:14 FiO2 Intake & Output 03/10/22 03/11/22 03/11/22 18:59 06:59 18:59 Intake Total 1230 550 Balance 1230 550 Intake: Intake, IV Titration 720 Amount Sodium Chloride 0.9% 1, 720 000 ml @ 125 mls/hr IV . Q8H BREANNA Rx#:[id number] Oral 240 Blood Product 510 310 Platelet Pheresis Pas 255 Psoralen Unit [id number] Rc Irr As1 Unit 0 310 [id number] Other: Voiding Method Toilet Toilet Toilet # Voids 1 1 # Bowel Movements 1 - Constitutional General appearance: Present: no acute distress - EENT Eyes: Present: EOMI ENT: Present: hearing grossly normal, normal oropharynx - Respiratory Respiratory: bilateral: CTA - Cardiovascular Rhythm: regular - Gastrointestinal General gastrointestinal: Present: normal bowel sounds, soft - Integumentary Integumentary: Present: normal - Neurologic Neurologic: Present: CNII-XII intact - Musculoskeletal Musculoskeletal: Present: generalized weakness, strength equal bilaterally - Psychiatric Psychiatric: Present: A&O x's 3, appropriate affect - Labs CBC & Chem 7: 03/11/22 08:06 03/11/22 08:06 Labs: Abnormal Lab Results - Last 24 Hours (Table) 03/10/22 03/11/22 03/11/22 Range/Units 11:01 08:06 08:06 WBC 0.9 L* (3.8-10.6) k/uL RBC 2.36 L (4.30-5.90) m/uL Hgb 7.2 L (13.0-17.5) gm/dL Hct 20.8 L (39.0-53.0) % Plt Count 13 L* D (150-450) k/uL Sodium 133 L (137-145) mmol/L Calcium 7.8 L (8.4-10.2) mg/dL Total Bilirubin 2.4 H (0.2-1.3) mg/dL Alkaline Phosphatase 37 L (38-126) U/L Total Protein 5.2 L (6.3-8.2) g/dL Albumin 3.0 L (3.5-5.0) g/dL Crossmatch See Detail Assessment and Plan (1) AML (acute myelogenous leukemia) Narrative/Plan: The patient completed induction chemotherapy with the 7+3 regimen on 03/09/22. He is day #9 today. Blood counts are appropriately low. However hemoglobin is couldn't 7 and platelets less than 10. No evidence of any bleeding. Therefore the patient does not require transfusion. - Continue to monitor with ongoing supportive care. Current Visit: Yes Status: Acute Code(s): C92.00 - ACUTE MYELOBLASTIC LEUKEMIA, NOT HAVING ACHIEVED REMISSION SNOMED Code(s): 72759339 (2) Pancytopenia due to antineoplastic chemotherapy Narrative/Plan: As above. Transfuse to keep hemoglobin greater than 7 and platelets greater than 10 Current Visit: Yes Status: Acute Code(s): D61.810 - ANTINEOPLASTIC CHEMOTHERAPY INDUCED PANCYTOPENIA; T45.1X5A - ADVERSE EFFECT OF ANTINEOPLASTIC AND IMMUNOSUP DRUGS, INIT SNOMED Code(s): 153664428472720 (3) Neutropenic fever Narrative/Plan: The patient had a to measure 100.9 today. This could be due to a posttransfusion phenomenon. However given his neutropenia, and underlying AML, he is to be treated as for possible infection. He has been started on Versed 20 Videx appropriately and cultures are pending. If cultures are negative and he defervescence, he can potentially be discharged on oral prophylactic antibiotics. Current Visit: Yes Status: Acute Code(s): D70.9 - NEUTROPENIA, UNSPECIFIED; R50.81 - FEVER PRESENTING WITH CONDITIONS CLASSIFIED ELSEWHERE SNOMED Code(s): 378322762 Plan: - Etiology of his facial bone and muscle symptoms is unclear. Check ionized calcium rule out hypercalcemia as an etiology. If symptoms progress, consider CT of the facial bones - Patient had stool studies for C. diff which were negative.
[2022-03-11] MEDS: CHOLESTYRAMINE (WITH SUGAR) 4 GM PACKET PO SCH ×2 (16:51→20:01)
[2022-03-11] MEDS: VANCOMYCIN 2,000 MG in SODIUM CHLORIDE 0.9% 500 ML 500 ML IVPB SCH (19:59)
[2022-03-11] MEDS: SENNOSIDES 8.6 MG TAB PO SCH (20:02)
[2022-03-11] MEDS: OLANZapine 5 MG TAB PO SCH (20:58)
[2022-03-12] MEDS: CEFEPIME 2 GM in SODIUM CHLORIDE 0.9% 100 ML IVPB SCH ×3 (01:33→20:30)
[2022-03-12] MEDS: LACTATED RINGERS 1,000 ML IV SCH (01:35)
[2022-03-12] MEDS: VANCOMYCIN 2,000 MG in SODIUM CHLORIDE 0.9% 500 ML 500 ML IVPB SCH ×3 (04:58→20:39)
[2022-03-12] MEDS: ACETAMINOPHEN TAB 325 MG TAB PO PRN ×3 (05:00→23:00)
[2022-03-12] MEDS: SALT AND SODA MOUTHWASH 1,000 ML PO SCH ×4 (06:12→20:47)
[2022-03-12 08:05] LABS: ALT 28 U/L (4-49); AST 17 U/L (17-59); African American GFR (CKD) >90 (>60 ml/min/1.73 sqM); Albumin 2.9 g/dL (3.5-5.0); Albumin/Globulin Ratio 1.2; Alkaline Phosphatase 34 U/L (38-126); Anion Gap 4 mmol/L; Blood Urea Nitrogen 15 mg/dL (9-20); Calcium 7.7 mg/dL (8.4-10.2); Carbon Dioxide 25 mmol/L (22-30); Chloride 104 mmol/L (98-107); Globulin 2.4 g/dL; Glucose 98 mg/dL (74-99); Non-African American GFR(CKD) >90 (>60 ml/min/1.73 sqM); Potassium 3.8 mmol/L (3.5-5.1); Sodium 133 mmol/L (137-145); Total Bilirubin 2.6 mg/dL (0.2-1.3); Total Protein 5.3 g/dL (6.3-8.2)
[2022-03-12] MEDS: polyethylene glycoL 3350 17 GM POWD.PACK PO SCH (08:26)
[2022-03-12 08:31] LABS: MCH 29.9 pg (25.0-35.0); MCHC 34.2 g/dL (31.0-37.0); MCV 87.4 fL (80.0-100.0); Poikilocytosis Slight; RBC 1.93 m/uL (4.30-5.90); RDW 14.3 % (11.5-15.5)
[2022-03-12] MEDS ORDERED: ACETAMINOPHEN IV (For NPO) 1,000 MG in EMPTY BAG 1 BAG IVPB STA (08:37)
[2022-03-12 08:48] LABS: HGB 5.8 gm/dL (13.0-17.5); WBC 0.8 k/uL (3.8-10.6)
[2022-03-12 08:49] LABS: HCT 16.9 % (39.0-53.0); Platelet Count 9 k/uL (150-450)
[2022-03-12] MEDS: ACYCLOVIR 200 MG CAP PO SCH ×2 (09:42→20:30)
[2022-03-12] MEDS: CHOLESTYRAMINE (WITH SUGAR) 4 GM PACKET PO SCH ×4 (09:42→20:30)
[2022-03-12] MEDS: FOLIC ACID 1 MG TAB PO SCH (09:42)
[2022-03-12] MEDS: CYANOCOBALAMIN 500 MCG TAB PO SCH (09:43)
[2022-03-12] MEDS: allopurinoL 300 MG TAB PO SCH (09:43)
[2022-03-12] MEDS: BENZONATATE 100 MG CAP PO PRN ×2 (09:52→18:04)
--- NOTE | 2022-03-12 10:06 | CT ---
Head CT with and without contrast. HISTORY: Fevers and leukopenia. COMPARISON: None. TECHNIQUE: Multiple axial images were obtained from skull base to vertex before and after the unevent ful administration nonionic IV contrast material. FINDINGS: The ventricles, basal cisterns and sulci over the convexities are within normal limits and there is no mass effect or shift of the midline structures. No abnormal density is seen throughout the brain parenchyma and there is no acute intra or extra-axia l hemorrhage. Posterior fossa including the brainstem, fourth ventricle and cerebellar pontine angles appear grossl y normal. The intraorbital contents appear normal and symmetric. Following contrast administration, there is no pathological enhancement. There is an air-fluid level in the left maxillary sinus consistent with acute sinusitis. The remainin g paranasal sinuses and mastoid air cells are well aerated. IMPRESSION: Acute sinusitis involving left maxillary sinus with no other significant abnormality seen.
--- NOTE | 2022-03-12 10:06 | CT ---
EXAMINATION TYPE: CT sinus w con DATE OF EXAM: 03/12/2022 COMPARISON: None HISTORY: Lt facial swelling, fever CT DLP: 436.66 mGycm Automated exposure control for dose reduction was used. CONTRAST: CT scan of the facial bones is performed with IV Contrast, patient injected with 100 mL of Isovue 300 . TECHNIQUE: CT scan of the sinuses is performed without contrast, axial images are obtained, coronal r eformatted images are also reviewed. FINDINGS: The paranasal sinuses including the frontal, ethmoid, sphenoid, and maxillary sinuses bila terally are well-aerated without abnormal opacification. The ostiomeatal complex is patent bilateral ly on the coronal images. Small brenton bullosa on the left and moderate sized brenton bullosa on the r ight Visualized portion of mastoid air cells show no abnormal opacification. The globes are intact bilate rally. Minimal soft tissue edema facial structures. IMPRESSION: The sinuses are clear and the ostiomeatal complex is patent bilaterally.
[2022-03-12] MEDS: FLUCONAZOLE 100 MG TAB PO SCH (10:51)
[2022-03-12] MEDS: guaiFENesin SYRUP 100MG/5ML 200 MG/10 ML CUP PO PRN ×2 (10:51→20:39)
[2022-03-12 11:43] LABS: Appearance,Urine Clear (Clear); Bacteria,Urine Rare /hpf; Bilirubin,Urine Negative (Negative); Blood,Urine Moderate (Negative); Color,Urine Yellow; Glucose,Urine (UA) Negative (Negative); Ketones,Urine Trace (Negative); Leukocyte Esterase,Urine Negative (Negative); Mucus,Urine Rare /hpf; Nitrite,Urine Negative (Negative); Protein,Urine Trace (Negative); RBC,Urine 5 /hpf (0-5); Urobilinogen,Urine <2.0 mg/dL (<2.0); WBC,Urine 3 /hpf (0-5)
[2022-03-12 11:45] LABS: Specific Gravity,Urine >1.050 (1.001-1.035)
--- NOTE | 2022-03-12 12:07 | P.PN ---
Subjective Progress Note Date: 03/12/22 (delayed charting seen at 0810) Patient is a 26-year-old male with history of PKU not on a diet who initially presented to his PCP with complaints of chest pain and having a cold for a month. He had been started on antibiotics for possible pneumonia and blood work was ordered. This showed significant thrombocytopenia since told to come to the ER. 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 Oncology started him on induction chemotherapy. He spiked a fever of 100.9 on 03/11/22, these fevers continued for 24 hours. Patient seen and examined at bedside with family present. Reports that he developed blurry vision last night and a SOTO. The blurry vision corrects with closing one of his eyes. He also developed a blood nose. Still with cough and body aches. Diarrhea resolved General: ill appearing, no distress, appears at stated age Derm: faint erythema left infraorbital area resolved however appears to have slight swelling. warm, dry Head: atraumatic, normocephalic, symmetric Eyes: EOMI, no lid lag, anicteric sclera Mouth: no lip lesion, mucus membranes moist, no ulcerations Cardiovascular: S1S2 reg, no murmur, positive posterior tibial pulse bilateral, Lungs: Decreased bs bilateral, no rhonchi, no rales , no accessory muscle use Abdominal: soft, nontender to palpation, no guarding, no appreciable organomegaly Ext: no gross muscle atrophy, no edema, no contractures Neuro: PERRL, EOMI intact, light touch ingtat b/l face, no focal neuro deficits Psych: Alert, oriented, appropriate affect Assessment/plan: Neutropenic fevers - CXR stat review and NAP - blood cultures negative to date - Stool for C diff negative - IVF - Vano and cefepime - consult ID Blurry vision - check sinus CT - if continues in AM then consider MRI and optho consult Nose bleed - pressure - Plt transfusion Acute myelogenous leukemia Pancytopenia- chemo induced with neutropenia, Anemia,and Thrombocytopenia -Oncology recommendations -On induction chemotherapy - Additional 1 unit pRBC and 1 of plt - Prior total of 4 units pRBC, and 1 unit plt -Follow labs closely. 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 DVT prophylaxis: SCDs due to thrombocytopenia Discussed with: Patient, nursing, mother Anticipated discharge: In AM Anticipated discharge place: home A total of 39 minutes was spent on the care of this complex patient more than 50% of the time was spent in counseling and care coordination. Objective - Vital Signs Vital signs: Vital Signs Temp 100.7 F H 03/12/22 05:00 Pulse 89 03/12/22 08:00 Resp 16 03/12/22 05:00 BP 132/67 03/12/22 08:00 Pulse Ox 98 03/12/22 05:00 FiO2 Intake & Output 03/11/22 03/12/22 03/12/22 18:59 06:59 18:59 Intake Total 1360 1700 Balance 1360 1700 Intake: Intake, IV Titration 1000 1700 Amount Lactated Ringers 1,000 ml 1000 1200 @ 125 mls/hr IV .Q8H [facility] Rx#:[id number] Vancomycin 2,000 mg In 500 Sodium Chloride 0.9% 500 ml 500 ml @ 167 mls/hr IVPB Q8H [facility] Rx#: [id number] Oral 360 Other: Voiding Method Toilet Toilet # Voids 4 # Bowel Movements 5 - Labs CBC & Chem 7: 03/12/22 07:30 03/12/22 07:30 Labs: Abnormal Lab Results - Last 24 Hours (Table) 03/10/22 03/12/22 03/12/22 Range/Units 11:01 07:30 07:30 WBC 0.8 L* (3.8-10.6) k/uL RBC 1.93 L (4.30-5.90) m/uL Hgb 5.8 L* (13.0-17.5) gm/dL Hct 16.9 L* (39.0-53.0) % Plt Count 9 L* (150-450) k/uL Sodium 133 L (137-145) mmol/L Creatinine 0.64 L (0.66-1.25) mg/dL Calcium 7.7 L (8.4-10.2) mg/dL Total Bilirubin 2.6 H (0.2-1.3) mg/dL Alkaline Phosphatase 34 L (38-126) U/L Total Protein 5.3 L (6.3-8.2) g/dL Albumin 2.9 L (3.5-5.0) g/dL Ur Specific [place] (1.001-1.035) Urine Protein (Negative) Urine Ketones (Negative) Urine Blood (Negative) Urine Bacteria (None) /hpf Urine Mucus (None) /hpf Crossmatch See Detail 03/12/22 Range/Units 08:00 WBC (3.8-10.6) k/uL RBC (4.30-5.90) m/uL Hgb (13.0-17.5) gm/dL Hct (39.0-53.0) % Plt Count (150-450) k/uL Sodium (137-145) mmol/L Creatinine (0.66-1.25) mg/dL Calcium (8.4-10.2) mg/dL Total Bilirubin (0.2-1.3) mg/dL Alkaline Phosphatase (38-126) U/L Total Protein (6.3-8.2) g/dL Albumin (3.5-5.0) g/dL Ur Specific [place] >1.050 H (1.001-1.035) Urine Protein Trace H (Negative) Urine Ketones Trace H (Negative) Urine Blood Moderate H (Negative) Urine Bacteria Rare H (None) /hpf Urine Mucus Rare H (None) /hpf Crossmatch
--- NOTE | 2022-03-12 14:10 | P.PN ---
Subjective Progress Note Date: 03/12/22 Patient reports improvement in the facial bone pain, and facial muscle spasms. He denies any diarrhea. Generalized weakness and fatigue persists. Appetite is still fair. He has had some minor nosebleeds. T-max was 100.7. He denied any chills or rigors Objective - Vital Signs Vital signs: Vital Signs Temp 99.1 F 03/12/22 12:15 Pulse 95 03/12/22 12:15 Resp 20 03/12/22 12:15 BP 144/82 03/12/22 12:15 Pulse Ox 97 03/12/22 12:15 FiO2 Intake & Output 03/11/22 03/12/22 03/12/22 18:59 06:59 18:59 Intake Total 1360 1700 240 Balance 1360 1700 240 Intake: Intake, IV Titration 1000 1700 Amount Lactated Ringers 1,000 ml 1000 1200 @ 125 mls/hr IV .Q8H [facility] Rx#:[id number] Vancomycin 2,000 mg In 500 Sodium Chloride 0.9% 500 ml 500 ml @ 167 mls/hr IVPB Q8H [facility] Rx#: [id number] Oral 360 240 Other: Voiding Method Toilet Toilet # Voids 4 # Bowel Movements 5 - Constitutional General appearance: Present: no acute distress - EENT Eyes: Present: EOMI ENT: Present: hearing grossly normal, normal oropharynx - Respiratory Respiratory: bilateral: CTA - Cardiovascular Rhythm: regular Heart sounds: normal: S1, S2 - Gastrointestinal General gastrointestinal: Present: normal bowel sounds, soft - Integumentary Integumentary: Present: normal - Neurologic Neurologic: Present: CNII-XII intact - Musculoskeletal Musculoskeletal: Present: generalized weakness, strength equal bilaterally - Psychiatric Psychiatric: Present: A&O x's 3, appropriate affect - Labs CBC & Chem 7: 03/12/22 07:30 03/12/22 07:30 Labs: Abnormal Lab Results - Last 24 Hours (Table) 03/10/22 03/12/22 03/12/22 Range/Units 11:01 07:30 07:30 WBC 0.8 L* (3.8-10.6) k/uL RBC 1.93 L (4.30-5.90) m/uL Hgb 5.8 L* (13.0-17.5) gm/dL Hct 16.9 L* (39.0-53.0) % Plt Count 9 L* (150-450) k/uL Sodium 133 L (137-145) mmol/L Creatinine 0.64 L (0.66-1.25) mg/dL Calcium 7.7 L (8.4-10.2) mg/dL Total Bilirubin 2.6 H (0.2-1.3) mg/dL Alkaline Phosphatase 34 L (38-126) U/L Total Protein 5.3 L (6.3-8.2) g/dL Albumin 2.9 L (3.5-5.0) g/dL Ur Specific [place] (1.001-1.035) Urine Protein (Negative) Urine Ketones (Negative) Urine Blood (Negative) Urine Bacteria (None) /hpf Urine Mucus (None) /hpf Crossmatch See Detail 03/12/22 Range/Units 08:00 WBC (3.8-10.6) k/uL RBC (4.30-5.90) m/uL Hgb (13.0-17.5) gm/dL Hct (39.0-53.0) % Plt Count (150-450) k/uL Sodium (137-145) mmol/L Creatinine (0.66-1.25) mg/dL Calcium (8.4-10.2) mg/dL Total Bilirubin (0.2-1.3) mg/dL Alkaline Phosphatase (38-126) U/L Total Protein (6.3-8.2) g/dL Albumin (3.5-5.0) g/dL Ur Specific [place] >1.050 H (1.001-1.035) Urine Protein Trace H (Negative) Urine Ketones Trace H (Negative) Urine Blood Moderate H (Negative) Urine Bacteria Rare H (None) /hpf Urine Mucus Rare H (None) /hpf Crossmatch Microbiology - Last 24 Hours (Table) 03/11/22 10:12 Blood Culture - Preliminary Blood No Growth after 24 hours Assessment and Plan (1) AML (acute myelogenous leukemia) Narrative/Plan: The patient is on day #10 of induction. No evidence of any tumor lysis. Continue to monitor with ongoing aggressive supportive measures Current Visit: Yes Status: Acute Code(s): C92.00 - ACUTE MYELOBLASTIC LEUKEMIA, NOT HAVING ACHIEVED REMISSION SNOMED Code(s): 17009178 (2) Pancytopenia due to antineoplastic chemotherapy Narrative/Plan: Hemoglobin was 5.8 with platelets 9. 1 unit PRBC, and 1 unit of platelets , irr adiated to be transfused. Continue to monitor with additional transfusions to keep hemoglobin greater than 7 and platelets >10 Current Visit: Yes Status: Acute Code(s): D61.810 - ANTINEOPLASTIC CHEMOTHERAPY INDUCED PANCYTOPENIA; T45.1X5A - ADVERSE EFFECT OF ANTINEOPLASTIC AND IMMUNOSUP DRUGS, INIT SNOMED Code(s): 985072783772166 (3) Neutropenic fever Narrative/Plan: The patient had a T-max of 100.7 today. Did not have any transfusion yesterday. Fever in this range, at this time is nonspecific, but infection , given the immune compromised state, has to be a major differential. The patient is on broad-spectrum antibiotics. It is negative so far. If cultures are negative over 48 hours, and fever results, it would be reasonable to discharge with routine, aggressive oral prophylactic antibiotics Current Visit: Yes Status: Acute Code(s): D70.9 - NEUTROPENIA, UNSPECIFIED; R50.81 - FEVER PRESENTING WITH CONDITIONS CLASSIFIED ELSEWHERE SNOMED Code(s): 699613390
[2022-03-12] MEDS: ALPRAZolam 0.25 MG TAB PO PRN (14:23)
[2022-03-12] MEDS: OLANZapine 5 MG TAB PO SCH (20:30)
[2022-03-12] MEDS: SENNOSIDES 8.6 MG TAB PO SCH (20:31)
[2022-03-13] MEDS: CEFEPIME 2 GM in SODIUM CHLORIDE 0.9% 100 ML IVPB SCH ×3 (03:04→17:51)
[2022-03-13] MEDS: SALT AND SODA MOUTHWASH 1,000 ML PO SCH ×5 (03:06→21:00)
[2022-03-13 04:26] LABS: African American GFR (CKD) >90 (>60 ml/min/1.73 sqM); Anion Gap 2 mmol/L; Blood Urea Nitrogen 14 mg/dL (9-20); Calcium 7.6 mg/dL (8.4-10.2); Carbon Dioxide 24 mmol/L (22-30); Chloride 106 mmol/L (98-107); Glucose 93 mg/dL (74-99); Non-African American GFR(CKD) >90 (>60 ml/min/1.73 sqM); Potassium 3.9 mmol/L (3.5-5.1); Sodium 132 mmol/L (137-145)
[2022-03-13] MEDS: VANCOMYCIN 2,000 MG in SODIUM CHLORIDE 0.9% 500 ML 500 ML IVPB SCH ×3 (04:31→21:00)
[2022-03-13 04:37] LABS: MCH 29.1 pg (25.0-35.0); MCHC 33.1 g/dL (31.0-37.0); Mean Platelet Volume 9.6; Poikilocytosis Slight; RBC 1.85 m/uL (4.30-5.90); RDW 14.2 % (11.5-15.5)
[2022-03-13 04:46] LABS: HCT 16.2 % (39.0-53.0); HGB 5.4 gm/dL (13.0-17.5)
[2022-03-13 04:49] LABS: WBC 0.8 k/uL (3.8-10.6)
[2022-03-13 04:50] LABS: Platelet Count 15 k/uL (150-450)
[2022-03-13] MEDS: LACTATED RINGERS 1,000 ML IV SCH ×5 (06:00→21:02)
--- NOTE | 2022-03-13 06:44 | P.CONS ---
History of Present Illness - Reason for Consult Consult date: 03/12/22 Febrile neutropenia Requesting physician: Sherie Cox - Chief Complaint Fever 1 day - History of Present Illness Patient is a 26-year-old male with a recent diagnosis of acute myelogenous leukemia admitted to the hospital for induction of chemotherapy and this patient has been in the hospital for more than 2 weeks now and today is day 10 of his induction chemotherapy the patient was afebrile initially however started running a low-grade fever of 100.9 yesterday morning and did have a low- grade fever 100.7 this morning that has prompted this infectious disease consultation patient denies having any headache seem to have problem with a nosebleed and has some pressure on the sinuses bilaterally however denies any purulent nasal drainage denies any sore throat denies any chest pain shortness of breath or cough no nausea no vomiting no abdominal pain no diarrhea, work-up so far including a CBC the patient did have a white count of 0.8 hemoglobin of 5.8 and platelet count of 9 kidney function has been normal liver enzymes are normal urine has been negative COVID testing was negative chest x-ray no acute cardiopulmonary disease CT of the sinuses sinuses are clear and ostiomeatal complexes are patent bilaterally, CT of the brain however shows acute sinusitis involving the left maxillary sinus, patient is currently on broad-spectrum antibiotic in the form of cefepime and vancomycin infectious disease was consulted for further management of antibiotic therapy Review of Systems Positive point has been mentioned in the HPI rest of the systems are negative Past Medical History Past Medical History: No Reported History History of Any Multi-Drug Resistant Organisms: None Reported Past Surgical History: Adenoidectomy, Tonsillectomy Past Psychological History: Anxiety Smoking Status: Never smoker Past Alcohol Use History: None Reported, Occasional Past Drug Use History: None Reported - Past Family History Mother Family Medical History: Cancer Additional Family Medical History / Comment(s): breast CA Medications and Allergies Home Medications Medication Instructions Recorded Confirmed Type Acyclovir 400 mg PO BID #60 tablet 03/10/22 Rx Ciprofloxacin HCl [Cipro] 500 mg PO DAILY 30 Days #30 tab 03/10/22 Rx Nystatin [Nystatin Oral Susp] 4 ml PO QID #400 ml 03/10/22 Rx Ondansetron Odt [Zofran ODT] 4 mg PO Q6HR PRN #45 tab 03/10/22 Rx Allergies Allergy/AdvReac Type Severity Reaction Status Date / Time No Known Allergies Allergy Verified 02/25/22 13:16 Physical Exam Vitals: Vital Signs Temp Pulse Resp BP Pulse Ox 03/12/22 12:15 99.1 F 95 20 144/82 97 03/12/22 08:00 89 132/67 03/12/22 05:00 100.7 F H 91 16 144/78 98 03/12/22 01:36 99.2 F 03/12/22 00:33 98.7 F 03/11/22 21:00 100.2 F H 115 H 20 131/75 98 03/11/22 14:14 98.3 F 96 18 119/76 99 03/11/22 14:06 98 Intake and Output 03/11/22 03/12/22 03/12/22 22:59 06:59 14:59 Intake Total 1360 1700 240 Balance 1360 1700 240 Intake: Intake, IV Titration 1000 1700 Amount Lactated Ringers 1,000 ml 1000 1200 @ 125 mls/hr IV .Q8H [facility] Rx#:[id number] Vancomycin 2,000 mg In 500 Sodium Chloride 0.9% 500 ml 500 ml @ 167 mls/hr IVPB Q8H [facility] Rx#: [id number] Oral 360 240 Other: Voiding Method Toilet # Voids 4 # Bowel Movements 5 GENERAL DESCRIPTION: Young male lying in bed, no distress. No tachypnea or accessory muscle of respiration use. HEENT: Shows Pallor , no scleral icterus. Oral mucous membrane is dry. No pharyngeal erythema or thrush NECK: Trachea central, no thyromegaly. LUNGS: Unlabored breathing. Clear to auscultation anteriorly. No wheeze or crackle. HEART: S1, S2, regular rate and rhythm. No loud murmur ABDOMEN: Soft, no tenderness , guarding or rigidity, no organomegaly EXTREMITIES: No edema of feet. SKIN: No rash, no masses palpable. NEUROLOGICAL: The patient is awake, alert, oriented x3, mood and affect normal. Results CBC & Chem 7: 03/13/22 03:34 03/13/22 03:34 Labs: Abnormal Lab Results - Last 24 Hours (Table) 03/10/22 03/12/22 03/12/22 Range/Units 11:01 07:30 07:30 WBC 0.8 L* (3.8-10.6) k/uL RBC 1.93 L (4.30-5.90) m/uL Hgb 5.8 L* (13.0-17.5) gm/dL Hct 16.9 L* (39.0-53.0) % Plt Count 9 L* (150-450) k/uL Sodium 133 L (137-145) mmol/L Creatinine 0.64 L (0.66-1.25) mg/dL Calcium 7.7 L (8.4-10.2) mg/dL Total Bilirubin 2.6 H (0.2-1.3) mg/dL Alkaline Phosphatase 34 L (38-126) U/L Total Protein 5.3 L (6.3-8.2) g/dL Albumin 2.9 L (3.5-5.0) g/dL Ur Specific [place] (1.001-1.035) Urine Protein (Negative) Urine Ketones (Negative) Urine Blood (Negative) Urine Bacteria (None) /hpf Urine Mucus (None) /hpf Crossmatch See Detail 03/12/22 Range/Units 08:00 WBC (3.8-10.6) k/uL RBC (4.30-5.90) m/uL Hgb (13.0-17.5) gm/dL Hct (39.0-53.0) % Plt Count (150-450) k/uL Sodium (137-145) mmol/L Creatinine (0.66-1.25) mg/dL Calcium (8.4-10.2) mg/dL Total Bilirubin (0.2-1.3) mg/dL Alkaline Phosphatase (38-126) U/L Total Protein (6.3-8.2) g/dL Albumin (3.5-5.0) g/dL Ur Specific [place] >1.050 H (1.001-1.035) Urine Protein Trace H (Negative) Urine Ketones Trace H (Negative) Urine Blood Moderate H (Negative) Urine Bacteria Rare H (None) /hpf Urine Mucus Rare H (None) /hpf Crossmatch Microbiology - Last 24 Hours (Table) 03/11/22 10:12 Blood Culture - Preliminary Blood No Growth after 24 hours Assessment and Plan (1) Neutropenic fever Current Visit: Yes Status: Acute Code(s): D70.9 - NEUTROPENIA, UNSPECIFIED; R50.81 - FEVER PRESENTING WITH CONDITIONS CLASSIFIED ELSEWHERE SNOMED Code(s): 998304848 Plan: 1patient with a febrile neutropenia in this patient with acute myelogenous leukemia admitted to the hospital for induction of chemotherapy and is day 10 of induction therapy patient did have a right upper arm PICC line which was placed this admission on his symptoms of nosebleed but no other obvious signs and symptoms of infection and the work-up has been negative so far with a negative chest x-ray negative UA abdominal soft frontal examination CT of the brain with left maxillary sinusitis however CT of the sinuses did not show any evidence of sinusitis. 2we will continue the patient on current broad-spectrum antibiotics in the form of vancomycin and cefepime while waiting for the culture to finalize. We will follow on clinical condition and cultures to further adjust medication if needed Thank you for this consultation will follow this patient along with you Time with Patient: Greater than 30
[2022-03-13] MEDS: polyethylene glycoL 3350 17 GM POWD.PACK PO SCH (07:48)
[2022-03-13] MEDS: ACETAMINOPHEN TAB 325 MG TAB PO PRN ×2 (07:51→19:52)
[2022-03-13] MEDS: allopurinoL 300 MG TAB PO SCH (07:52)
[2022-03-13] MEDS: FOLIC ACID 1 MG TAB PO SCH (07:53)
[2022-03-13] MEDS: FLUCONAZOLE 100 MG TAB PO SCH (07:54)
[2022-03-13] MEDS: ACYCLOVIR 200 MG CAP PO SCH ×2 (07:54→19:54)
[2022-03-13] MEDS: CYANOCOBALAMIN 500 MCG TAB PO SCH (07:54)
[2022-03-13] MEDS: CHOLESTYRAMINE (WITH SUGAR) 4 GM PACKET PO SCH ×4 (07:54→19:54)
[2022-03-13] MEDS ORDERED: ACETAMINOPHEN TAB 325 MG TAB PO PRN (11:39)
[2022-03-13] MEDS: CHOLECALCIFEROL 25 MCG (1000 IU) TABLET PO SCH (13:19)
--- NOTE | 2022-03-13 13:25 | P.PN ---
Subjective Progress Note Date: 03/13/22 Principal diagnosis: Pancytopenia, peripheral blasts-AML Pt is seen today in follow-up. Has started induction chemo. He had severe epistaxis yesterday, was able to achieve hemostasis, no active bleeding, pain. He is receiving blood today. Has had fevers-most recent 100.9F, ID is on the case as well. Objective - Vital Signs Vital signs: Vital Signs Temp 99.4 F 03/13/22 13:01 Pulse 96 03/13/22 13:01 Resp 16 03/13/22 12:20 BP 130/81 03/13/22 13:01 Pulse Ox 99 03/13/22 13:01 FiO2 Intake & Output 03/12/22 03/13/22 03/13/22 18:59 06:59 18:59 Intake Total 808 1570 310 Balance 808 1570 310 Intake: Intake, IV Titration 950 Amount Cefepime 2 gm In Sodium 200 Chloride 0.9% 100 ml @ 25 mls/hr IVPB Q8H [facility] Rx#: [id number] Lactated Ringers 1,000 ml 250 @ 125 mls/hr IV .Q8H [facility] Rx#:[id number] Vancomycin 2,000 mg In 500 Sodium Chloride 0.9% 500 ml 500 ml @ 167 mls/hr IVPB Q8H [facility] Rx#: [id number] Oral 480 Blood Product 328 620 310 Platelet Pheresis Pas 328 Psoralen Unit [id number] Rc Irr As1 Unit 0 [id number] Rc Irr As1 Unit 0 310 [id number] Rc Irr As1 Unit 310 [id number] Other: Voiding Method Toilet # Voids 1 - Constitutional General appearance: Present: average body habitus, cooperative, no acute distress - EENT EENT Comment(s): lt maxillary sinus pain with palpation Eyes: Present: EOMI, scleral icterus (mild) ENT: Present: hearing grossly normal, normal oropharynx - Respiratory Respiratory: bilateral: CTA - Cardiovascular Rhythm: regular Heart sounds: normal: S1, S2 Abnormal Heart Sounds: Absent: systolic murmur, diastolic murmur, rub, S3 G allop, S4 Gallop, click, other - Peripheral edema leg Peripheral Edema: bilateral: Trace - Gastrointestinal General gastrointestinal: Present: normal bowel sounds, soft. Absent: absent bowel sounds, decreased bowel sounds, distended, hepatomegaly, hyperactive bowel sounds, organomegaly, rigid, scaphoid, splenomegaly, tenderness, umbilical hernia, ventral hernia - Integumentary Integumentary: Present: normal turgor, pale - Neurologic Neurologic: Present: CNII-XII intact - Musculoskeletal Musculoskeletal: Present: generalized weakness, strength equal bilaterally - Psychiatric Psychiatric: Present: A&O x's 3, appropriate affect, intact judgment & insight - Labs CBC & Chem 7: 03/13/22 03:34 03/13/22 03:34 Labs: Abnormal Lab Results - Last 24 Hours (Table) 03/10/22 03/13/22 03/13/22 Range/Units 11:01 03:34 03:34 WBC 0.8 L* (3.8-10.6) k/uL RBC 1.85 L (4.30-5.90) m/uL Hgb 5.4 L* (13.0-17.5) gm/dL Hct 16.2 L* (39.0-53.0) % Plt Count 15 L* D (150-450) k/uL Sodium 132 L (137-145) mmol/L Creatinine 0.64 L (0.66-1.25) mg/dL Calcium 7.6 L (8.4-10.2) mg/dL Crossmatch See Detail Microbiology - Last 24 Hours (Table) 03/12/22 10:25 Blood Culture - Preliminary Blood No Growth after 24 hours 03/11/22 10:12 Blood Culture - Preliminary Blood No Growth after 48 hours - Imaging and Cardiology CT Scan - head: report reviewed sinus CT report reviewed Assessment and Plan (1) AML (acute myelogenous leukemia) Current Visit: Yes Status: Acute Priority: High Code(s): C92.00 - ACUTE MYELOBLASTIC LEUKEMIA, NOT HAVING ACHIEVED REMISSION SNOMED Code(s): 84982685 (2) Neutropenic fever Current Visit: Yes Status: Acute Priority: High Code(s): D70.9 - NEUTROPENIA, UNSPECIFIED; R50.81 - FEVER PRESENTING WITH CONDITIONS CLASSIFIED ELSEWHERE SNOMED Code(s): 044769974 (3) Pancytopenia due to antineoplastic chemotherapy Current Visit: Yes Status: Acute Priority: High Code(s): D61.810 - ANTINE OPLASTIC CHEMOTHERAPY INDUCED PANCYTOPENIA; T45.1X5A - ADVERSE EFFECT OF ANTINEOPLASTIC AND IMMUNOSUP DRUGS, INIT SNOMED Code(s): 778235708126950 Plan: S/P 7+3 induction chemo for newly diagnosed AML ID following. Empiric abx, antiviral and antifungal. Cultures thus far are neg. Conservative transfusions for anemia and thrombocytopenia. Transfuse for Hgb <7 and plt <10K unless symptomatic. Irradiated blood products only. No GCSF as pt is not a confirmed remission Daily labs Cont allopurinol for now, no evidence of TLS Supportive medications [place] fluids Activity as tolerated, out of bed for meals attests: I have preformed H&P, seen and examined patient, developed impression and plan of care. Discussed with dictator. Agree with documentation, dictated as a scribe.
[2022-03-13] MEDS: BENZONATATE 100 MG CAP PO PRN (16:20)
--- NOTE | 2022-03-13 18:14 | P.PN ---
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 He had been started on antibiotics for possible pneumonia and blood work was ordered. This showed significant thrombocytopenia since told to come to the ER. 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 Oncology started him on induction chemotherapy. Subective Patient seen and evaluated at bedside, today patient does not report any worsening of his breathing or report any new significant chest pain. Patient remains in no acute distress. Patient questions and concerns addressed at bedside, proper counseling done. Plan discussed with nursing staff. Objective General: non toxic, no acute distress, alert oriented to time place and person Head: atraumatic, normocephalic, symmetric Eyes: no lid lesion], anicteric sclera Mouth: no lip lesion, mucus membranes moist Cardiovascular: S1S2 reg rate and rhythm, no murmur, no gallop Lungs: Bilateral equal air entry, no wheezing no rhonchi no crackles. Abdominal: soft, nontender to palpation, no guarding, no appreciable organomegaly Ext: no gross muscle atrophy, no edema extremities warm to suppose a positive Neuro: Alert oriented to time place and person, exam grossly nonfocal Psych: Mood and affect appropriate, patient not so certain Skin exam: No rashes no jaundice. Assessment and plan Acute myelogenous leukemia Patient completed 1 cycle of induction therapy Continue empiric antibiotic antiviral and antifungal treatment Cultures negative so far Continue to monitor for anemia and thrombocytopenia plan for transfuse if hemoglobin less than 7 and platelets and 10k (irradiated blood products only) Continue allopurinol for now no evidence of tumor lysis syndrome Continue supportive care IV hydration Appreciate input from hematology oncology and infectious disease Febrile neutropenia Patient continued to have low-grade fevers, mild tachycardia, blood pressure remained stable Continue empiric antibiotic Cultures negative so far Infection disease following Pancytopenia and thrombocytopenia likely due to anti-neoplastic chemotherapy Continue to monitor for anemia and thrombocytopenia plan for transfuse if hemoglobin less than 7 and platelets and 10k (irradiated blood products only) Epistaxis Likely in the setting of thrombocytopenia Patient had 1 episode of epistaxis, managed with conservative measures Continue to monitor DVT prophylaxis: None patient has thrombocytopenia CODE STATUS: Full code Discharge plan/next site of care: Pending workup hospital course, likely back to home, exact timing to be determined Objective - Vital Signs Vital signs: Vital Signs Temp 98.9 F 03/13/22 16:50 Pulse 103 H 03/13/22 16:50 Resp 16 03/13/22 12:20 BP 133/80 03/13/22 16:50 Pulse Ox 100 03/13/22 16:50 FiO2 Intake & Output 03/12/22 03/13/22 03/13/22 18:59 06:59 18:59 Intake Total 808 1570 620 Balance 808 1570 620 Intake: Intake, IV Titration 950 Amount Cefepime 2 gm In Sodium 200 Chloride 0.9% 100 ml @ 25 mls/hr IVPB Q8H [facility] Rx#: [id number] Lactated Ringers 1,000 ml 250 @ 125 mls/hr IV .Q8H [facility] Rx#:[id number] Vancomycin 2,000 mg In 500 Sodium Chloride 0.9% 500 ml 500 ml @ 167 mls/hr IVPB Q8H [facility] Rx#: [id number] Oral 480 Blood Product 328 620 620 Platelet Pheresis Pas 328 Psoralen Unit [id number] Platelet Pheresis Pas 0 Psoralen Unit [id number] Rc Irr As1 Unit 310 [id number] Rc Irr As1 Unit 0 310 [id number] Rc Irr As1 Unit 310 [id number] Other: Voiding Method Toilet # Voids 1 - Labs CBC & Chem 7: 03/13/22 03:34 03/13/22 03:34 Labs: Abnormal Lab Results - Last 24 Hours (Table) 03/10/22 03/13/22 03/13/22 Range/Units 11:01 03:34 03:34 WBC 0.8 L* (3.8-10.6) k/uL RBC 1.85 L (4.30-5.90) m/uL Hgb 5.4 L* (13.0-17.5) gm/dL Hct 16.2 L* (39.0-53.0) % Plt Count 15 L* D (150-450) k/uL Sodium 132 L (137-145) mmol/L Creatinine 0.64 L (0.66-1.25) mg/dL Calcium 7.6 L (8.4-10.2) mg/dL Crossmatch See Detail Microbiology - Last 24 Hours (Table) 03/12/22 13:14 Blood Culture Gram Stain - Preliminary Blood 03/12/22 13:14 Blood Culture - Final Blood 03/12/22 10:25 Blood Culture - Preliminary Blood No Growth after 24 hours 03/11/22 10:12 Blood Culture - Preliminary Blood No Growth after 48 hours
[2022-03-13] MEDS: ALPRAZolam 0.25 MG TAB PO PRN (19:52)
[2022-03-13] MEDS: OLANZapine 5 MG TAB PO SCH (19:54)
[2022-03-13] MEDS: SENNOSIDES 8.6 MG TAB PO SCH (19:55)
[2022-03-14] MEDS: guaiFENesin SYRUP 100MG/5ML 200 MG/10 ML CUP PO PRN (01:47)
[2022-03-14] MEDS: BENZONATATE 100 MG CAP PO PRN (01:47)
[2022-03-14] MEDS: ACETAMINOPHEN TAB 325 MG TAB PO PRN ×3 (01:50→14:52)
[2022-03-14] MEDS: CEFEPIME 2 GM in SODIUM CHLORIDE 0.9% 100 ML IVPB SCH ×3 (02:36→17:32)
[2022-03-14] MEDS: SALT AND SODA MOUTHWASH 1,000 ML PO SCH ×5 (02:36→19:07)
[2022-03-14] MEDS: LACTATED RINGERS 1,000 ML IV SCH ×3 (02:38→21:28)
[2022-03-14] MEDS: VANCOMYCIN 2,000 MG in SODIUM CHLORIDE 0.9% 500 ML 500 ML IVPB SCH ×2 (05:10→17:32)
[2022-03-14 07:08] LABS: Anisocytosis Slight; MCH 30.4 pg (25.0-35.0); MCHC 35.2 g/dL (31.0-37.0); MCV 86.2 fL (80.0-100.0); Mean Platelet Volume 8.3; Poikilocytosis Slight; RBC 2.11 m/uL (4.30-5.90); RDW 16.7 % (11.5-15.5)
[2022-03-14 07:14] LABS: WBC 0.9 k/uL (3.8-10.6)
[2022-03-14 07:15] LABS: Platelet Count 17 k/uL (150-450)
[2022-03-14 07:16] LABS: HCT 18.2 % (39.0-53.0); HGB 6.4 gm/dL (13.0-17.5)
[2022-03-14] MEDS: polyethylene glycoL 3350 17 GM POWD.PACK PO SCH (07:50)
[2022-03-14 07:57] LABS: Rouleaux Present
[2022-03-14 08:35] LABS: ALT 26 U/L (4-49); AST 13 U/L (17-59); African American GFR (CKD) >90 (>60 ml/min/1.73 sqM); Albumin 2.9 g/dL (3.5-5.0); Albumin/Globulin Ratio 1.2; Alkaline Phosphatase 38 U/L (38-126); Anion Gap 5 mmol/L; Blood Urea Nitrogen 11 mg/dL (9-20); Calcium 7.7 mg/dL (8.4-10.2); Carbon Dioxide 22 mmol/L (22-30); Chloride 107 mmol/L (98-107); Globulin 2.4 g/dL; Glucose 88 mg/dL (74-99); Non-African American GFR(CKD) >90 (>60 ml/min/1.73 sqM); Sodium 134 mmol/L (137-145); Total Bilirubin 1.6 mg/dL (0.2-1.3); Total Protein 5.3 g/dL (6.3-8.2)
[2022-03-14] MEDS: CHOLESTYRAMINE (WITH SUGAR) 4 GM PACKET PO SCH ×4 (09:06→20:07)
[2022-03-14] MEDS: ACYCLOVIR 200 MG CAP PO SCH ×2 (09:06→20:07)
[2022-03-14] MEDS: CYANOCOBALAMIN 500 MCG TAB PO SCH (09:06)
[2022-03-14] MEDS: CHOLECALCIFEROL 25 MCG (1000 IU) TABLET PO SCH (09:07)
[2022-03-14] MEDS: FOLIC ACID 1 MG TAB PO SCH (09:07)
[2022-03-14] MEDS: allopurinoL 300 MG TAB PO SCH (09:07)
[2022-03-14] MEDS: FLUCONAZOLE 100 MG TAB PO SCH (09:59)
--- NOTE | 2022-03-14 12:25 | P.PN ---
Subjective Progress Note Date: 03/13/22 Principal diagnosis: Febrile neutropenia Patient is a 26-year-old male with the acute myelogenous leukemia admitted to the hospital for induction of chemotherapy patient did have right upper extremity PICC line for chemotherapy developing a fever. On today's evaluation that is 03/13/2022, patient's spike a fever of 101F this morning, patient denies any further nosebleed denies having any chest pain or shortness of breath and minimal cough no nausea no vomiting no abdominal pain no diarrhea Objective - Vital Signs Vital signs: Vital Signs Temp 99.4 F 03/13/22 13:01 Pulse 96 03/13/22 13:01 Resp 16 03/13/22 12:20 BP 130/81 03/13/22 13:01 Pulse Ox 99 03/13/22 13:01 FiO2 Intake & Output 03/12/22 03/13/22 03/13/22 18:59 06:59 18:59 Intake Total 808 1570 310 Balance 808 1570 310 Intake: Intake, IV Titration 950 Amount Cefepime 2 gm In Sodium 200 Chloride 0.9% 100 ml @ 25 mls/hr IVPB Q8H [facility] Rx#: [id number] Lactated Ringers 1,000 ml 250 @ 125 mls/hr IV .Q8H [facility] Rx#:[id number] Vancomycin 2,000 mg In 500 Sodium Chloride 0.9% 500 ml 500 ml @ 167 mls/hr IVPB Q8H [facility] Rx#: [id number] Oral 480 Blood Product 328 620 310 Platelet Pheresis Pas 328 Psoralen Unit [id number] Rc Irr As1 Unit 0 [id number] Rc Irr As1 Unit 0 310 [id number] Rc Irr As1 Unit 310 [id number] Other: Voiding Method Toilet # Voids 1 - Exam GENERAL DESCRIPTION: A middle-age male lying in bed in no distress RESPIRATORY SYSTEM: Unlabored breathing , decreased breath sounds at bases HEART: S1 S2 regular rate and rhythm , ABDOMEN: Soft , no tenderness EXTREMITIES: No edema feet - Labs CBC & Chem 7: 03/14/22 06:12 03/14/22 06:12 Labs: Abnormal Lab Results - Last 24 Hours (Table) 03/10/22 03/13/22 03/13/22 Range/Units 11:01 03:34 03:34 WBC 0.8 L* (3.8-10.6) k/uL RBC 1.85 L (4.30-5.90) m/uL Hgb 5.4 L* (13.0-17.5) gm/dL Hct 16.2 L* (39.0-53.0) % Plt Count 15 L* D (150-450) k/uL Sodium 132 L (137-145) mmol/L Creatinine 0.64 L (0.66-1.25) mg/dL Calcium 7.6 L (8.4-10.2) mg/dL Crossmatch See Detail Microbiology - Last 24 Hours (Table) 03/12/22 10:25 Blood Culture - Preliminary Blood No Growth after 24 hours 03/11/22 10:12 Blood Culture - Preliminary Blood No Growth after 48 hours Assessment and Plan (1) Neutropenic fever Current Visit: Yes Status: Acute Priority: High Code(s): D70.9 - NEUTROPE SCOTTY, UNSPECIFIED; R50.81 - FEVER PRESENTING WITH CONDITIONS CLASSIFIED ELSEWHERE SNOMED Code(s): 216021983 Plan: 1patient with a febrile neutropenia in this patient with acute myelogenous leukemia admitted to the hospital for induction of chemotherapy and is day 10 of induction therapy patient did have a right upper arm PICC line which was placed this admission on his symptoms of nosebleed but no other obvious signs and symptoms of infection and the work-up has been negative so far with a negative chest x-ray negative UA abdominal soft frontal examination CT of the brain with left maxillary sinusitis however CT of the sinuses did not show any evidence of sinusitis. 2patient blood cultures came back positive with gram-positive cocci could be related to the PICC line will wait for the ID blood cultures will be repeated continue with vancomycin Time with Patient: Less than 30
--- NOTE | 2022-03-14 12:26 | P.PN ---
Subjective Progress Note Date: 03/14/22 Principal diagnosis: Febrile neutropenia Patient is a 26-year-old male with the acute myelogenous leukemia admitted to the hospital for induction of chemotherapy patient did have right upper extremity PICC line for chemotherapy developing a fever. On today's evaluation that is 03/14/2022, patient did spike another fever of 101F earlier this morning, patient any chest pain or shortness of breath, the patient did have minimal dry cough no nausea no vomiting no abdominal pain no diarrhea Objective - Vital Signs Vital signs: Vital Signs Temp 99.7 F H 03/14/22 04:20 Pulse 98 03/14/22 04:20 Resp 16 03/14/22 04:20 BP 126/74 03/14/22 04:20 Pulse Ox 98 03/14/22 04:20 FiO2 Intake & Output 03/13/22 03/14/22 03/14/22 18:59 06:59 18:59 Intake Total 3340 563 Balance 3340 563 Intake: Intake, IV Titration 2100 Amount Cefepime 2 gm In Sodium 100 Chloride 0.9% 100 ml @ 25 mls/hr IVPB Q8H [facility] Rx#: [id number] Lactated Ringers 1,000 ml 1500 @ 125 mls/hr IV .Q8H [facility] Rx#:[id number] Vancomycin 2,000 mg In 500 Sodium Chloride 0.9% 500 ml 500 ml @ 167 mls/hr IVPB Q8H [facility] Rx#: [id number] Oral 180 Blood Product 1240 383 Platelet Pheresis Pas 0 383 Psoralen Unit [id number] Rc Irr As1 Unit 310 [id number] Rc Irr As1 Unit 310 [id number] Other: Voiding Method Toilet Toilet # Voids 2 - Exam GENERAL DESCRIPTION: A middle-age male lying in bed in no distress RESPIRATORY SYSTEM: Unlabored breathing , decreased breath sounds at bases HEART: S1 S2 regular rate and rhythm , ABDOMEN: Soft , no tenderness EXTREMITIES: No edema feet - Labs CBC & Chem 7: 03/14/22 06:12 03/14/22 06:12 Labs: Abnormal Lab Results - Last 24 Hours (Table) 03/10/22 03/14/22 03/14/22 Range/Units 11:01 06:12 06:12 WBC 0.9 L* (3.8-10.6) k/uL RBC 2.11 L (4.30-5.90) m/uL Hgb 6.4 L* (13.0-17.5) gm/dL Hct 18.2 L* (39.0-53.0) % RDW 16.7 H (11.5-15.5) % Plt Count 17 L* (150-450) k/uL Sodium 134 L (137-145) mmol/L Creatinine 0.63 L (0.66-1.25) mg/dL Calcium 7.7 L (8.4-10.2) mg/dL Total Bilirubin 1.6 H (0.2-1.3) mg/dL AST 13 L (17-59) U/L Total Protein 5.3 L (6.3-8.2) g/dL Albumin 2.9 L (3.5-5.0) g/dL Crossmatch See Detail 03/14/22 Range/Units 08:19 WBC (3.8-10.6) k/uL RBC (4.30-5.90) m/uL Hgb (13.0-17.5) gm/dL Hct (39.0-53.0) % RDW (11.5-15.5) % Plt Count (150-450) k/uL Sodium (137-145) mmol/L Creatinine (0.66-1.25) mg/dL Calcium (8.4-10.2) mg/dL Total Bilirubin (0.2-1.3) mg/dL AST (17-59) U/L Total Protein (6.3-8.2) g/dL Albumin (3.5-5.0) g/dL Crossmatch See Detail Microbiology - Last 24 Hours (Table) 03/12/22 12:50 Blood Culture Gram Stain - Preliminary Blood 03/12/22 12:50 Blood Culture - Final Blood 03/12/22 13:14 Blood Culture Gram Stain - Preliminary Blood Blood Culture - Preliminary Coagulase Negative Staph 03/12/22 13:14 Blood Culture - Final Blood 03/12/22 10:25 Blood Culture - Preliminary Blood No Growth after 24 hours 03/11/22 10:12 Blood Culture - Preliminary Blood No Growth after 48 hours Assessment and Plan (1) Neutropenic fever Current Visit: Yes Status: Acute Priority: High Code(s): D70.9 - NEUTROPENIA, UNSPECIFIED; R50.81 - FEVER PRESENTING WITH CONDITIONS CLASSIFIED ELSEWHERE SNOMED Code(s): 557642285 Plan: 1patient with a febrile neutropenia in this patient with acute myelogenous patricio kemia admitted to the hospital for induction of chemotherapy and is day 10 of induction therapy patient did have a right upper arm PICC line which was placed this admission on his symptoms of nosebleed but no other obvious signs and symptoms of infection and the work-up has been negative so far with a negative chest x-ray negative UA abdominal soft frontal examination CT of the brain with left maxillary sinusitis however CT of the sinuses did not show any evidence of sinusitis. 2patient blood cultures came back positive with gram-positive cocci which has been finalized as coagulase negative staph, keeping in mind his persistent fever we'll recommend his continuation of the PICC line after obtaining a peripheral IV continue with vancomycin, mother at the bedside questions were answered Time with Patient: Less than 30
--- NOTE | 2022-03-14 14:24 | P.PN ---
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 He had been started on antibiotics for possible pneumonia and blood work was ordered. This showed significant thrombocytopenia since told to come to the ER. 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 Oncology started him on induction chemotherapy. Subective Patient seen and evaluated at bedside, today patient does not report any worsening of his breathing or report any new significant chest pain. Patient remains in no acute distress. Patient questions and concerns addressed at bedside, proper counseling done. Plan discussed with nursing staff. Objective General: non toxic, no acute distress, alert oriented to time place and person Head: atraumatic, normocephalic, symmetric Eyes: no lid lesion], anicteric sclera Mouth: no lip lesion, mucus membranes moist Cardiovascular: S1S2 reg rate and rhythm, no murmur, no gallop Lungs: Bilateral equal air entry, no wheezing no rhonchi no crackles. Abdominal: soft, nontender to palpation, no guarding, no appreciable organomegaly Ext: no gross muscle atrophy, no edema extremities warm to suppose a positive Neuro: Alert oriented to time place and person, exam grossly nonfocal Psych: Mood and affect appropriate, patient not so certain Skin exam: No rashes no jaundice. Assessment and plan Acute myelogenous leukemia Patient completed 1 cycle of induction therapy Continue empiric antibiotic antiviral and antifungal treatment Cultures negative so far Continue to monitor for anemia and thrombocytopenia plan for transfuse if hemoglobin less than 7 and platelets and 10k (irradiated blood products only) Continue allopurinol for now no evidence of tumor lysis syndrome Continue supportive care IV hydration Appreciate input from hematology oncology and infectious disease Febrile neutropenia Patient continued to have low-grade fevers, mild tachycardia, blood pressure remained stable Continue empiric antibiotic Cultures negative so far Infection disease following Pancytopenia and thrombocytopenia likely due to anti-neoplastic chemotherapy Continue to monitor for anemia and thrombocytopenia plan for transfuse if hemoglobin less than 7 and platelets and 10k (irradiated blood products only) Epistaxis Likely in the setting of thrombocytopenia Patient had 1 episode of epistaxis, managed with conservative measures Continue to monitor overall continue current management as per hematology and infectious disease patient appears to be stable discharge as clinical Objective - Vital Signs Vital signs: Vital Signs Temp 99.5 F 03/14/22 12:40 Pulse 93 03/14/22 12:40 Resp 16 03/14/22 12:40 BP 151/85 03/14/22 12:40 Pulse Ox 98 03/14/22 12:40 FiO2 Intake & Output 03/13/22 03/14/22 03/14/22 18:59 06:59 18:59 Intake Total 3340 563 Balance 3340 563 Intake: Intake, IV Titration 2100 Amount Cefepime 2 gm In Sodium 100 Chloride 0.9% 100 ml @ 25 mls/hr IVPB Q8H [facility] Rx#: [id number] Lactated Ringers 1,000 ml 1500 @ 125 mls/hr IV .Q8H [facility] Rx#:[id number] Vancomycin 2,000 mg In 500 Sodium Chloride 0.9% 500 ml 500 ml @ 167 mls/hr IVPB Q8H [facility] Rx#: [id number] Oral 180 Blood Product 1240 383 Platelet Pheresis Pas 0 383 Psoralen Unit [id number] Rc Irr As1 Unit 310 [id number] Rc Irr As1 Unit 310 [id number] Other: Voiding Method Toilet Toilet # Voids 2 - Labs CBC & Chem 7: 03/14/22 06:12 03/14/22 06:12 Labs: Abnormal Lab Results - Last 24 Hours (Table) 03/10/22 03/14/22 03/14/22 Range/Units 11:01 06:12 06:12 WBC 0.9 L* (3.8-10.6) k/uL RBC 2.11 L (4.30-5.90) m/uL Hgb 6.4 L* (13.0-17.5) gm/dL Hct 18.2 L* (39.0-53.0) % RDW 16.7 H (11.5-15.5) % Plt Count 17 L* (150-450) k/uL Sodium 134 L (137-145) mmol/L Creatinine 0.63 L (0.66-1.25) mg/dL Calcium 7.7 L (8.4-10.2) mg/dL Total Bilirubin 1.6 H (0.2-1.3) mg/dL AST 13 L (17-59) U/L Total Protein 5.3 L (6.3-8.2) g/dL Albumin 2.9 L (3.5-5.0) g/dL Crossmatch See Detail 03/14/22 Range/Units 08:19 WBC (3.8-10.6) k/uL RBC (4.30-5.90) m/uL Hgb (13.0-17.5) gm/dL Hct (39.0-53.0) % RDW (11.5-15.5) % Plt Count (150-450) k/uL Sodium (137-145) mmol/L Creatinine (0.66-1.25) mg/dL Calcium (8.4-10.2) mg/dL Total Bilirubin (0.2-1.3) mg/dL AST (17-59) U/L Total Protein (6.3-8.2) g/dL Albumin (3.5-5.0) g/dL Crossmatch See Detail Microbiology - Last 24 Hours (Table) 03/12/22 10:25 Blood Culture - Preliminary Blood No Growth after 48 hours 03/11/22 10:12 Blood Culture - Preliminary Blood No Growth after 72 hours 03/12/22 12:50 Blood Culture Gram Stain - Preliminary Blood 03/12/22 12:50 Blood Culture - Final Blood 03/12/22 13:14 Blood Culture Gram Stain - Preliminary Blood Blood Culture - Preliminary Coagulase Negative Staph 03/12/22 13:14 Blood Culture - Final Blood
--- NOTE | 2022-03-14 18:21 | P.PN ---
Subjective Progress Note Date: 03/14/22 Principal diagnosis: Pancytopenia, peripheral blasts-AML Pt is seen today in follow-up. Has completed 1st cycle of induction chemo. he had 101.5 Fahrenheit temperature, denies any bleeding today, no oral irritation, nausea, vomiting, dysuria, bleeding or pain. Objective - Vital Signs Vital signs: Vital Signs Temp 98.9 F 03/14/22 17:25 Pulse 91 03/14/22 17:25 Resp 16 03/14/22 12:40 BP 143/84 03/14/22 17:25 Pulse Ox 99 03/14/22 17:25 FiO2 Intake & Output 03/13/22 03/14/22 03/14/22 18:59 06:59 18:59 Intake Total 3340 563 1220 Balance 3340 563 1220 Intake: Intake, IV Titration 2100 600 Amount Cefepime 2 gm In Sodium 100 100 Chloride 0.9% 100 ml @ 25 mls/hr IVPB Q8H [facility] Rx#: [id number] Lactated Ringers 1,000 ml 1500 @ 125 mls/hr IV .Q8H [facility] Rx#:[id number] Vancomycin 2,000 mg In 500 500 Sodium Chloride 0.9% 500 ml 500 ml @ 167 mls/hr IVPB Q8H [facility] Rx#: [id number] Oral 180 Blood Product 1240 383 620 Platelet Pheresis Pas 0 383 Psoralen Unit [id number] Rc Irr As1 Unit 310 [id number] Rc Irr As1 Unit 310 [id number] Rc Irr As1 Unit 310 [id number] Other: Voiding Method Toilet Toilet # Voids 2 - Constitutional General appearance: Present: average body habitus, cooperative, no acute distress - EENT Eyes: Present: anicteric sclerae, EOMI ENT: Present: hearing grossly normal, normal oropharynx - Respiratory Respiratory: bilateral: CTA - Cardiovascular Rhythm: regular Heart sounds: normal: S1, S2 Abnormal Heart Sounds: Absent: systolic murmur, diastolic murmur, rub, S3 Gallop, S4 Gallop, click, other - Peripheral edema leg Peripheral Edema: bilateral: None - Gastrointestinal General gastrointestinal: Present: normal bowel sounds, soft. Absent: absent bowel sounds, decreased bowel sounds, distended, hepatomegaly, hyperactive bowel sounds, organomegaly, rigid, scaphoid, splenomegaly, tenderness, umbilical hernia, ventral hernia - Integumentary Integumentary: Present: normal turgor, pale - Neurologic Neurologic: Present: CNII-XII intact - Musculoskeletal Musculoskeletal: Present: strength equal bilaterally - Psychiatric Psychiatric: Present: A&O x's 3, appropriate affect, intact judgment & insight - Labs CBC & Chem 7: 03/14/22 06:12 03/14/22 06:12 Labs: Abnormal Lab Results - Last 24 Hours (Table) 03/14/22 03/14/22 03/14/22 Range/Units 06:12 06:12 08:19 WBC 0.9 L* (3.8-10.6) k/uL RBC 2.11 L (4.30-5.90) m/uL Hgb 6.4 L* (13.0-17.5) gm/dL Hct 18.2 L* (39.0-53.0) % RDW 16.7 H (11.5-15.5) % Plt Count 17 L* (150-450) k/uL Sodium 134 L (137-145) mmol/L Creatinine 0.63 L (0.66-1.25) mg/dL Calcium 7.7 L (8.4-10.2) mg/dL Total Bilirubin 1.6 H (0.2-1.3) mg/dL AST 13 L (17-59) U/L Total Protein 5.3 L (6.3-8.2) g/dL Albumin 2.9 L (3.5-5.0) g/dL Crossmatch See Detail Microbiology - Last 24 Hours (Table) 03/12/22 10:25 Blood Culture - Preliminary Blood No Growth after 48 hours 03/11/22 10:12 Blood Culture - Preliminary Blood No Growth after 72 hours 03/12/22 12:50 Blood Culture Gram Stain - Preliminary Blood 03/12/22 12:50 Blood Culture - Final Blood 03/12/22 13:14 Blood Culture Gram Stain - Preliminary Blood Blood Culture - Preliminary Coagulase Negative Staph Assessment and Plan (1) AML (acute myelogenous leukemia) Current Visit: Yes Status: Acute Priority: High Code(s): C92.00 - ACUTE MYELOBLASTIC LEUKEMIA, NOT HAVING ACHIEVED REMISSION SNOMED Code(s): 00751090 (2) Neutropenic fever Current Visit: Yes Status: Acute Priority: High Code(s): D70.9 - NEUTROPENIA, UNSPECIFIED; R50.81 - FEVER PRESENTING WITH CONDITIONS CLASSIFIED ELSEWHERE SNOMED Code(s): 873565426 (3) Pancytopenia due to antineoplastic chemotherapy Current Visit: Yes Status: Acute Priority: High Code(s): D61.810 - ANTINEOPLASTIC CHEMOTHERAPY INDUCED PANCYTOPENIA; T45.1X5A - ADVERSE EFFECT OF ANTINEOPLASTIC AND IMMUNOSUP DRUGS, INIT SNOMED Code(s): 804310626347986 Plan: S/P 7+3 induction chemo for newly diagnosed AML ID following. Empiric abx, antiviral and antifungal. Positive blood culture for coagulase negative staph. Pending ID recommendations regarding this culture. Also, recommendations regarding PICC line-doesn't need to be removed? Conservative transfusions for anemia and thrombocytopenia. Transfuse for Hgb <7 and plt <10K unless symptomatic. Irradiated blood products only. 1 unit PRBCs for hemoglobin of 6.4. No GCSF as pt is not a confirmed remission Daily labs Cont allopurinol for now, no evidence of TLS Supportive medications [place] fluids Activity as tolerated, out of bed for meals attests: I have preformed H&P, seen and examined patient, developed im pression and plan of care. Discussed with dictator. Agree with documentation, dictated as a scribe.
[2022-03-14] MEDS: HYDROcodone/APAP 5-325MG 1 EACH TAB PO PRN (19:18)
[2022-03-14] MEDS: SENNOSIDES 8.6 MG TAB PO SCH (20:07)
[2022-03-14] MEDS: OLANZapine 5 MG TAB PO SCH (20:07)
[2022-03-14] MEDS: ALPRAZolam 0.25 MG TAB PO PRN (20:12)
[2022-03-15] MEDS: SALT AND SODA MOUTHWASH 1,000 ML PO SCH ×6 (01:18→23:58)
[2022-03-15] MEDS: VANCOMYCIN 2,000 MG in SODIUM CHLORIDE 0.9% 500 ML 500 ML IVPB SCH ×3 (01:58→17:55)
[2022-03-15] MEDS: CEFEPIME 2 GM in SODIUM CHLORIDE 0.9% 100 ML IVPB SCH ×3 (01:59→17:55)
[2022-03-15] MEDS: ACETAMINOPHEN TAB 325 MG TAB PO PRN ×2 (04:42→11:33)
[2022-03-15 06:40] LABS: HCT 20.2 % (39.0-53.0); MCH 29.7 pg (25.0-35.0); MCHC 34.6 g/dL (31.0-37.0); MCV 85.8 fL (80.0-100.0); Mean Platelet Volume 6.9; RBC 2.35 m/uL (4.30-5.90); RDW 15.5 % (11.5-15.5)
[2022-03-15 06:51] LABS: Platelet Count 12 k/uL (150-450); WBC 0.8 k/uL (3.8-10.6)
[2022-03-15 07:04] LABS: ALT 25 U/L (4-49); AST 14 U/L (17-59); African American GFR (CKD) >90 (>60 ml/min/1.73 sqM); Albumin 3.1 g/dL (3.5-5.0); Albumin/Globulin Ratio 1.3; Alkaline Phosphatase 45 U/L (38-126); Anion Gap 7 mmol/L; Blood Urea Nitrogen 9 mg/dL (9-20); Calcium 8.1 mg/dL (8.4-10.2); Carbon Dioxide 21 mmol/L (22-30); Chloride 105 mmol/L (98-107); Globulin 2.4 g/dL; Glucose 101 mg/dL (74-99); Non-African American GFR(CKD) >90 (>60 ml/min/1.73 sqM); Sodium 133 mmol/L (137-145); Total Bilirubin 1.5 mg/dL (0.2-1.3); Total Protein 5.5 g/dL (6.3-8.2)
[2022-03-15] MEDS: CHOLESTYRAMINE (WITH SUGAR) 4 GM PACKET PO SCH ×4 (07:43→19:32)
[2022-03-15] MEDS: LACTATED RINGERS 1,000 ML IV SCH ×3 (08:23→20:50)
[2022-03-15] MEDS: CHOLECALCIFEROL 25 MCG (1000 IU) TABLET PO SCH (08:24)
[2022-03-15] MEDS: ACYCLOVIR 200 MG CAP PO SCH ×2 (08:24→19:30)
[2022-03-15] MEDS: allopurinoL 300 MG TAB PO SCH (08:24)
[2022-03-15] MEDS: CYANOCOBALAMIN 500 MCG TAB PO SCH (08:24)
[2022-03-15] MEDS: FOLIC ACID 1 MG TAB PO SCH (08:25)
[2022-03-15] MEDS: FLUCONAZOLE 100 MG TAB PO SCH (08:25)
[2022-03-15] MEDS: polyethylene glycoL 3350 17 GM POWD.PACK PO SCH (08:25)
[2022-03-15] MEDS: HYDROcodone/APAP 5-325MG 1 EACH TAB PO PRN ×2 (10:33→20:50)
--- NOTE | 2022-03-15 11:22 | P.PN ---
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 He had been started on antibiotics for possible pneumonia and blood work was ordered. This showed significant thrombocytopenia since told to come to the ER. 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 Oncology started him on induction chemotherapy. He spiked a fever of 100.9 on 03/11/22, these fevers continued for 24 hours. He was found to have coag negative staph bacteremia Patient seen and examined at bedside with family present. Doing well, cough is getting better, no nausea, no diarrhea, feeling tired. No other complaints currently. General: ill appearing, no distress, appears at stated age Derm: warm, dry Head: atraumatic, normocephalic, symmetric Eyes: EOMI, no lid lag, anicteric sclera Mouth: no lip lesion, mucus membranes moist, no ulcerations Cardiovascular: S1S2 reg, no murmur, positive posterior tibial pulse bilateral, Lungs: Decreased bs bilateral, no rhonchi, no rales , no accessory muscle use Abdominal: soft, nontender to palpation, no guarding, no appreciable organomegaly Ext: no gross muscle atrophy, no edema, no contractures Neuro: CN II-XII grossly intact, no focal neuro deficits Psych: Alert, oriented, appropriate affect Assessment/plan: Persistent Neutropenic fevers Coag neg staph bacteremia - PICC line removed - ID recs - Vanco, cefepime, diflucan, acyclovir Acute myelogenous leukemia Pancytopenia- chemo induced with neutropenia, Anemia,and Thrombocytopenia -Oncology recommendations -Completed induction chemotherapy this admission - Prior total of 8 units pRBC, and 3 unit plt -Follow labs closely. 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 Epistaxis, resolved DVT prophylaxis: SCDs due to thrombocytopenia Discussed with: Patient, nursing, mother Anticipated discharge: In AM Anticipated discharge place: home A total of 25 minutes was spent on the care of this complex patient more than 50% of the time was spent in counseling and care coordination. Active Medications Generic Name Dose Route Start Last Admin Trade Name Freq PRN Reason Stop Dose Admin Acetaminophen 650 mg 03/13/22 17:19 03/15/22 04:42 Acetaminophen Tab 325 Mg Tab PO 650 mg Q6HR PRN Administration Fever and/ or Pain Hydrocodone Bitart/Acetaminophen 1 each 03/11/22 09:20 03/15/22 10:33 Hydrocodone/Apap 5-325mg 1 Each Tab PO 1 each Q6HR PRN Administration Moderate Pain Acyclovir 400 mg 03/02/22 09:00 03/15/22 08:24 Acyclovir 200 Mg Cap PO 400 mg BID [facility] Administration Protocol Allopurinol 300 mg 02/28/22 12:00 03/15/22 08:24 Allopurinol 300 Mg Tab PO 300 mg DAILY [facility] Administration Alprazolam 0.25 mg 02/28/22 11:53 03/14/22 20:12 Alprazolam 0.25 Mg Tab PO 0.25 mg TID PRN Administration Anxiety Benzonatate 100 mg 03/08/22 13:05 03/14/22 01:47 Benzonatate 100 Mg Cap PO 100 mg TID PRN Administration Cough Cholecalciferol 25 mcg 03/13/22 11:45 03/15/22 08:24 Cholecalciferol 25 Mcg (1000 Iu) Tablet PO 25 mcg DAILY [facility] Administration Cholestyramine Resin 4 gm 03/11/22 17:30 03/15/22 07:43 Cholestyramine (With Sugar) 4 Gm Packet PO Not Given ACHS [facility] Cyanocobalamin 1,000 mcg 03/05/22 19:00 03/15/22 08:24 Cyanocobalamin 500 Mcg Tab PO 1,000 mcg DAILY [facility] Administration Fluconazole 100 mg 03/02/22 09:00 03/15/22 08:25 Fluconazole 100 Mg Tab PO 100 mg DAILY [facility] Administration Protocol Folic Acid 0.5 mg 03/05/22 19:15 03/15/22 08:25 Folic Acid 1 Mg Tab PO 0.5 mg DAILY [facility] Administration Guaifenesin 200 mg 02/27/22 13:04 03/14/22 01:47 Guaifenesin Syrup 100mg/5ml 200 Mg/10 Ml Cup PO 200 mg Q6HR PRN Administration Cough Lactated Ringer's 1,000 mls @ 125 mls/hr 03/11/22 09:15 03/15/22 10:50 Lactated Ringers IV Not Given .Q8H [facility] Cefepime HCl 2 gm/ Sodium 100 mls @ 25 mls/hr 03/11/22 10:00 03/15/22 10:33 Chloride IVPB 25 mls/hr Q8H [facility] Administration Vancomycin HCl 2,000 mg/ 500 mls @ 167 mls/hr 03/15/22 02:00 03/15/22 10:33 Sodium Chloride IVPB 167 mls/hr Q8H [facility] Administration Miscellaneous Information 0 each 03/16/22 09:00 Vancomycin Trough Due 1 Each Misc MISCELLANE 03/16/22 09:01 DIRECTED ONE Naloxone HCl 0.2 mg 02/25/22 12:55 Naloxone 0.4 Mg/Ml 1 Ml Vial IV Q2M PRN Opioid Reversal Olanzapine 5 mg 03/02/22 21:00 03/14/22 20:07 Olanzapine 5 Mg Tab PO 5 mg HS [facility] Administration Ondansetron HCl 4 mg 02/25/22 12:55 Ondansetron 4 Mg/2 Ml Vial IVP Q8HR PRN Nausea And Vomiting Polyethylene Glycol 17 gm 03/07/22 11:15 03/15/22 08:25 Polyethylene Glycol 3350 17 Gm Powd.Pack PO Not Given DAILY [facility] Senna 8.6 mg 03/07/22 21:00 03/14/22 20:07 Sennosides 8.6 Mg Tab PO Not Given HS [facility] Sodium Bicarbonate 5 ml 02/28/22 12:00 03/15/22 10:34 Salt And Soda Mouthwash 1,000 Ml PO 5 ml 5XD [facility] Administration Temazepam 7.5 mg 03/10/22 19:48 03/12/22 20:54 Temazepam 7.5 Mg Cap PO 7.5 mg HS PRN Administration Insomnia Objective - Vital Signs Vital signs: Vital Signs Temp 97.9 F 03/15/22 08:58 Pulse 103 H 03/15/22 05:00 Resp 16 03/15/22 05:00 BP 127/74 03/15/22 05:00 Pulse Ox 99 03/15/22 05:00 FiO2 Intake & Output 03/14/22 03/15/22 03/15/22 18:59 06:59 18:59 Intake Total 1220 590 Balance 1220 590 Intake: Intake, IV Titration 600 Amount Cefepime 2 gm In Sodium 100 Chloride 0.9% 100 ml @ 25 mls/hr IVPB Q8H [facility] Rx#: [id number] Vancomycin 2,000 mg In 500 Sodium Chloride 0.9% 500 ml 500 ml @ 167 mls/hr IVPB Q8H [facility] Rx#: [id number] Oral 590 Blood Product 620 Rc Irr As1 Unit 310 [id number] Other: Voiding Method Toilet Toilet Toilet # Voids 2 - Labs CBC & Chem 7: 03/15/22 06:11 03/15/22 06:11 Labs: Abnormal Lab Results - Last 24 Hours (Table) 03/06/22 03/10/22 03/14/22 Range/Units 12:15 11:01 08:19 WBC (3.8-10.6) k/uL RBC (4.30-5.90) m/uL Hgb (13.0-17.5) gm/dL Hct (39.0-53.0) % Plt Count (150-450) k/uL Sodium (137-145) mmol/L Carbon Dioxide (22-30) mmol/L Creatinine (0.66-1.25) mg/dL Glucose (74-99) mg/dL Calcium (8.4-10.2) mg/dL Total Bilirubin (0.2-1.3) mg/dL AST (17-59) U/L Total Protein (6.3-8.2) g/dL Albumin (3.5-5.0) g/dL Crossmatch See Detail See Detail See Detail 03/15/22 03/15/22 03/15/22 Range/Units 06:11 06:11 06:11 WBC 0.8 L* (3.8-10.6) k/uL RBC 2.35 L (4.30-5.90) m/uL Hgb 7.0 L (13.0-17.5) gm/dL Hct 20.2 L (39.0-53.0) % Plt Count 12 L* (150-450) k/uL Sodium 133 L (137-145) mmol/L Carbon Dioxide 21 L (22-30) mmol/L Creatinine 0.59 L 0.63 L (0.66-1.25) mg/dL Glucose 101 H (74-99) mg/dL Calcium 8.1 L (8.4-10.2) mg/dL Total Bilirubin 1.5 H (0.2-1.3) mg/dL AST 14 L (17-59) U/L Total Protein 5.5 L (6.3-8.2) g/dL Albumin 3.1 L (3.5-5.0) g/dL Crossmatch Microbiology - Last 24 Hours (Table) 03/14/22 06:12 Blood Culture - Preliminary Blood No Growth after 24 hours 03/14/22 14:07 Catheter Tip Culture - Preliminary Picc Line 03/13/22 14:24 Blood Culture - Preliminary Blood No Growth after 24 hours 03/12/22 10:25 Blood Culture - Preliminary Blood No Growth after 48 hours 03/11/22 10:12 Blood Culture - Preliminary Blood No Growth after 72 hours 03/12/22 12:50 Blood Culture Gram Stain - Preliminary Blood
[2022-03-15] MEDS ORDERED: RX INFO: IV CONTRAST WAS GIVEN 1 EACH MISC MISCELLANE PRN (12:45)
--- NOTE | 2022-03-15 14:36 | CT ---
EXAMINATION TYPE: CT chest w con DATE OF EXAM: 03/15/2022 COMPARISON: X-ray dated 03/11/2022 HISTORY: Fever, Pneumonia CT DLP: 551.9 mGycm Automated exposure control for dose reduction was used. TECHNIQUE: CT scan of the chest is performed with IV Contrast, patient injected with 70 mL of Isovue 300. FINDINGS: LUNGS: The lungs are grossly clear, there is no concerning parenchymal mass or nodule identified. T here is no pleural effusion or pneumothorax seen. The tracheobronchial tree is patent. MEDIASTINUM: There are no greater than 1 cm hilar or mediastinal lymph nodes. No cardiomegaly. Patenc y major mediastinal vessels. No pericardial effusion is seen. OTHER: Increased transverse dimension of the spleen measuring 15.3 cm. No definite splenic focal les ion. 18 mm left midpole renal hypodensity, possibly representing a renal cyst. No aggressive bone les ion. IMPRESSION: No significant pulmonary abnormality identified. Incidental findings as described above.
--- NOTE | 2022-03-15 17:00 | P.PN ---
Subjective Progress Note Date: 03/15/22 Principal diagnosis: Pancytopenia, peripheral blasts-AML Pt is seen today in follow-up. Has completed 1st cycle of induction chemo. 102.8 Fahrenheit MAXIMUM TEMPERATURE since yesterday, PICC line has been poled, pending catheter tip cultures. Patient denies oral irritation, sore throat, rigors, mild nausea, no vomiting, appetite is fair, no chest pain, dry cough, no hemoptysis, dysuria, stool is liquid but not water, denies abdominal pain or cramping, rash, swelling or bleeding. Objective - Vital Signs Vital signs: Vital Signs Temp 99.1 F 03/15/22 11:47 Pulse 99 03/15/22 11:47 Resp 16 03/15/22 11:47 BP 130/80 03/15/22 11:47 Pulse Ox 98 03/15/22 11:47 FiO2 Intake & Output 03/14/22 03/15/22 03/15/22 18:59 06:59 18:59 Intake Total 1220 590 Balance 1220 590 Weight 115.666 kg Intake: Intake, IV Titration 600 Amount Cefepime 2 gm In Sodium 100 Chloride 0.9% 100 ml @ 25 mls/hr IVPB Q8H [facility] Rx#: [id number] Vancomycin 2,000 mg In 500 Sodium Chloride 0.9% 500 ml 500 ml @ 167 mls/hr IVPB Q8H [facility] Rx#: [id number] Oral 590 Blood Product 620 Rc Irr As1 Unit 310 [id number] Other: Voiding Method Toilet Toilet Toilet # Voids 2 - Constitutional General appearance: Present: cooperative, no acute distress, obese - EENT Eyes: Present: anicteric sclerae, EOMI ENT: Present: hearing grossly normal, normal oropharynx - Respiratory Respiratory: bilateral: CTA - Cardiovascular Rhythm: regular Heart sounds: normal: S1, S2 Abnormal Heart Sounds: Absent: systolic murmur, diastolic murmur, rub, S3 Gallop, S4 Gallop, click, other - Peripheral edema leg Peripheral Edema: bilateral: Trace - Gastrointestinal Gastrointestinal Comment(s): no rebound General gastrointestinal: Present: normal bowel sounds, soft. Absent: absent bowel sounds, decreased bowel sounds, distended, hepatomegaly, hyperactive bowel sounds, organomegaly, rigid, scaphoid, splenomegaly, tenderness, umbilical hernia, ventral hernia - Integumentary Integumentary: Present: normal, pale - Neurologic Neurologic: Present: CNII-XII intact - Musculoskeletal Musculoskeletal: Present: generalized weakness, strength equal bilaterally - Psychiatric Psychiatric: Present: A&O x's 3, appropriate affect, intact judgment & insight - Labs CBC & Chem 7: 03/15/22 06:11 03/15/22 06:11 Labs: Abnormal Lab Results - Last 24 Hours (Table) 03/06/22 03/10/22 03/14/22 Range/Units 12:15 11:01 08:19 WBC (3.8-10.6) k/uL RBC (4.30-5.90) m/uL Hgb (13.0-17.5) gm/dL Hct (39.0-53.0) % Plt Count (150-450) k/uL Sodium (137-145) mmol/L Carbon Dioxide (22-30) mmol/L Creatinine (0.66-1.25) mg/dL Glucose (74-99) mg/dL Calcium (8.4-10.2) mg/dL Total Bilirubin (0.2-1.3) mg/dL AST (17-59) U/L Total Protein (6.3-8.2) g/dL Albumin (3.5-5.0) g/dL Procalcitonin (0.02-0.09) ng/mL Crossmatch See Detail See Detail See Detail 03/15/22 03/15/22 03/15/22 Range/Units 06:11 06:11 06:11 WBC 0.8 L* (3.8-10.6) k/uL RBC 2.35 L (4.30-5.90) m/uL Hgb 7.0 L (13.0-17.5) gm/dL Hct 20.2 L (39.0-53.0) % Plt Count 12 L* (150-450) k/uL Sodium 133 L (137-145) mmol/L Carbon Dioxide 21 L (22-30) mmol/L Creatinine 0.59 L 0.63 L (0.66-1.25) mg/dL Glucose 101 H (74-99) mg/dL Calcium 8.1 L (8.4-10.2) mg/dL Total Bilirubin 1.5 H (0.2-1.3) mg/dL AST 14 L (17-59) U/L Total Protein 5.5 L (6.3-8.2) g/dL Albumin 3.1 L (3.5-5.0) g/dL Procalcitonin (0.02-0.09) ng/mL Crossmatch 03/15/22 Range/Units 06:11 WBC (3.8-10.6) k/uL RBC (4.30-5.90) m/uL Hgb (13.0-17.5) gm/dL Hct (39.0-53.0) % Plt Count (150-450) k/uL Sodium (137-145) mmol/L Carbon Dioxide (22-30) mmol/L Creatinine (0.66-1.25) mg/dL Glucose (74-99) mg/dL Calcium (8.4-10.2) mg/dL Total Bilirubin (0.2-1.3) mg/dL AST (17-59) U/L Total Protein (6.3-8.2) g/dL Albumin (3.5-5.0) g/dL Procalcitonin 0.23 H (0.02-0.09) ng/mL Crossmatch Microbiology - Last 24 Hours (Table) 03/12/22 12:50 Blood Culture Gram Stain - Preliminary Blood Blood Culture - Preliminary Coagulase Negative Staph 03/12/22 13:14 Blood Culture Gram Stain - Preliminary Blood Blood Culture - Preliminary Coagulase Negative Staph 03/12/22 10:25 Blood Culture - Preliminary Blood No Growth after 72 hours 03/11/22 10:12 Blood Culture - Preliminary Blood No Growth after 96 hours 03/14/22 14:07 Catheter Tip Culture - Preliminary Picc Line 03/14/22 06:12 Blood Culture - Preliminary Blood No Growth after 24 hours 03/13/22 14:24 Blood Culture - Preliminary Blood No Growth after 24 hours Assessment and Plan (1) AML (acute myelogenous leukemia) Current Visit: Yes Status: Acute Priority: High Code(s): C92.00 - ACUTE MYELOBLASTIC LEUKEMIA, NOT HAVING ACHIEVED REMISSION SNOMED Code(s): 30430862 (2) Neutropenic fever Current Visit: Yes Status: Acute Priority: High Code(s): D70.9 - NEUTROPENIA, UNSPECIFIED; R50.81 - FEVER PRESENTING WITH CONDITIONS CLASSIFIED ELSEWHERE SNOMED Code(s): 311361829 (3) Pancytopenia due to antineoplastic chemotherapy Current Visit: Yes Status: Acute Priority: High Code(s): D61.810 - ANTINEOPLASTIC CHEMOTHERAPY INDUCED PANCYTOPENIA; T45.1X5A - ADVERSE EFFECT OF ANTINEOPLASTIC AND IMMUNOSUP DRUGS, INIT SNOMED Code(s): 368984372660773 Plan: S/P 7+3 induction chemo for newly diagnosed AML ID following. Empiric abx, antiviral and antifungal. Positive blood culture for coagulase negative staph. PICC line removed, pending cultures Conservative transfusions for anemia and thrombocytopenia. Transfuse for Hgb <7 and plt <10K unless symptomatic. Irradiated blood products only. No transfusions needed today. No GCSF as pt is not a confirmed remission Daily labs Cont allopurinol Supportive medications [place] fluids Activity as tolerated, out of bed for meals attests: I have preformed H&P, seen and examined patient, developed impression and plan of care. Discussed with dictator. Agree with documentation, dictated as a scribe.
[2022-03-15] MEDS: OLANZapine 5 MG TAB PO SCH (19:30)
[2022-03-15] MEDS: ALPRAZolam 0.25 MG TAB PO PRN (19:30)
[2022-03-15] MEDS: SENNOSIDES 8.6 MG TAB PO SCH (19:32)
--- NOTE | 2022-03-15 22:55 | P.PN ---
Subjective Progress Note Date: 03/15/22 Principal diagnosis: Febrile neutropenia Patient is a 26-year-old male with the acute myelogenous leukemia admitted to the hospital for induction of chemotherapy patient did have right upper extremity PICC line for chemotherapy developing a fever. On today's evaluation that is 03/15/2022, patient did spike another fever of 102F, patient denies any chest pain or shortness of breath, the patient is complaining of cough which is dry in nature, patient denies having any nausea no vomiting no, and no diarrhea Objective - Vital Signs Vital signs: Vital Signs Temp 99.1 F 03/15/22 11:47 Pulse 99 03/15/22 11:47 Resp 16 03/15/22 11:47 BP 130/80 03/15/22 11:47 Pulse Ox 98 03/15/22 11:47 FiO2 Intake & Output 03/14/22 03/15/22 03/15/22 18:59 06:59 18:59 Intake Total 1220 590 Balance 1220 590 Weight 115.666 kg Intake: Intake, IV Titration 600 Amount Cefepime 2 gm In Sodium 100 Chloride 0.9% 100 ml @ 25 mls/hr IVPB Q8H [facility] Rx#: [id number] Vancomycin 2,000 mg In 500 Sodium Chloride 0.9% 500 ml 500 ml @ 167 mls/hr IVPB Q8H [facility] Rx#: [id number] Oral 590 Blood Product 620 Rc Irr As1 Unit 310 [id number] Other: Voiding Method Toilet Toilet Toilet # Voids 2 - Exam GENERAL DESCRIPTION: A middle-age male lying in bed in no distress RESPIRATORY SYSTEM: Unlabored breathing , decreased breath sounds at bases HEART: S1 S2 regular rate and rhythm , ABDOMEN: Soft , no tenderness EXTREMITIES: No edema feet - Labs CBC & Chem 7: 03/15/22 06:11 03/15/22 06:11 Labs: Abnormal Lab Results - Last 24 Hours (Table) 03/06/22 03/10/22 03/14/22 Range/Units 12:15 11:01 08:19 WBC (3.8-10.6) k/uL RBC (4.30-5.90) m/uL Hgb (13.0-17.5) gm/dL Hct (39.0-53.0) % Plt Count (150-450) k/uL Sodium (137-145) mmol/L Carbon Dioxide (22-30) mmol/L Creatinine (0.66-1.25) mg/dL Glucose (74-99) mg/dL Calcium (8.4-10.2) mg/dL Total Bilirubin (0.2-1.3) mg/dL AST (17-59) U/L Total Protein (6.3-8.2) g/dL Albumin (3.5-5.0) g/dL Crossmatch See Detail See Detail See Detail 03/15/22 03/15/22 03/15/22 Range/Units 06:11 06:11 06:11 WBC 0.8 L* (3.8-10.6) k/uL RBC 2.35 L (4.30-5.90) m/uL Hgb 7.0 L (13.0-17.5) gm/dL Hct 20.2 L (39.0-53.0) % Plt Count 12 L* (150-450) k/uL Sodium 133 L (137-145) mmol/L Carbon Dioxide 21 L (22-30) mmol/L Creatinine 0.59 L 0.63 L (0.66-1.25) mg/dL Glucose 101 H (74-99) mg/dL Calcium 8.1 L (8.4-10.2) mg/dL Total Bilirubin 1.5 H (0.2-1.3) mg/dL AST 14 L (17-59) U/L Total Protein 5.5 L (6.3-8.2) g/dL Albumin 3.1 L (3.5-5.0) g/dL Crossmatch Microbiology - Last 24 Hours (Table) 03/12/22 10:25 Blood Culture - Preliminary Blood No Growth after 72 hours 03/11/22 10:12 Blood Culture - Preliminary Blood No Growth after 96 hours 03/14/22 14:07 Catheter Tip Culture - Preliminary Picc Line 03/14/22 06:12 Blood Culture - Preliminary Blood No Growth after 24 hours 03/13/22 14:24 Blood Culture - Preliminary Blood No Growth after 24 hours 03/12/22 12:50 Blood Culture Gram Stain - Preliminary Blood Assessment and Plan (1) Neutropenic fever Current Visit: Yes Status: Acute Priority: High Code(s): D70.9 - NEUTROPENIA, UNSPECIFIED; R50.81 - FEVER PRESENTING WITH CONDITIONS CLASSIFIED ELSEWHERE SNOMED Code(s): 462662713 Plan: 1patient with a febrile neutropenia in this patient with acute myelogenous leukemia admitted to the hospital for induction of chemotherapy and is day 10 of induction therapy patient did have a right upper arm PICC line which was placed this admission on his symptoms of nosebleed but no other obvious signs and symptoms of infection and the work-up has been negative so far with a negative chest x-ray negative UA abdominal soft frontal examination CT of the brain with left maxillary sinusitis however CT of the sinuses did not show any evidence of sinusitis. 2patient blood cultures came back positive with gram-positive cocci which has been finalized as coagulase negative staph, keeping in mind his persistent fever patient PICC line was discontinued and the patient be continued on vancomycin, patient still running a fever and did have a cough. Obtain a CT of the chest to make sure that evidence of any pneumonia as the patient is risk for fungal pneumonia because of his prolonged neutropenia, mother at the bedside questions were answered Time with Patient: Less than 30
[2022-03-16] MEDS: CEFEPIME 2 GM in SODIUM CHLORIDE 0.9% 100 ML IVPB SCH ×3 (02:17→18:23)
[2022-03-16] MEDS: VANCOMYCIN 2,000 MG in SODIUM CHLORIDE 0.9% 500 ML 500 ML IVPB SCH ×3 (02:17→18:22)
[2022-03-16] MEDS: LACTATED RINGERS 1,000 ML IV SCH ×2 (02:20→16:43)
[2022-03-16] MEDS: SALT AND SODA MOUTHWASH 1,000 ML PO SCH ×4 (06:11→20:53)
[2022-03-16] MEDS: ACETAMINOPHEN TAB 325 MG TAB PO PRN (08:06)
[2022-03-16] MEDS: FLUCONAZOLE 100 MG TAB PO SCH (08:06)
[2022-03-16] MEDS: polyethylene glycoL 3350 17 GM POWD.PACK PO SCH ×2 (08:06→08:10)
[2022-03-16] MEDS: FOLIC ACID 1 MG TAB PO SCH (08:07)
[2022-03-16] MEDS: allopurinoL 300 MG TAB PO SCH (08:07)
[2022-03-16] MEDS: CYANOCOBALAMIN 500 MCG TAB PO SCH (08:07)
[2022-03-16] MEDS: CHOLECALCIFEROL 25 MCG (1000 IU) TABLET PO SCH (08:07)
[2022-03-16] MEDS: ACYCLOVIR 200 MG CAP PO SCH ×2 (08:07→20:48)
[2022-03-16] MEDS: CHOLESTYRAMINE (WITH SUGAR) 4 GM PACKET PO SCH (08:09)
--- NOTE | 2022-03-16 08:47 | P.PN ---
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 He had been started on antibiotics for possible pneumonia and blood work was ordered. This showed significant thrombocytopenia since told to come to the ER. 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 Oncology started him on induction chemotherapy. He spiked a fever of 100.9 on 03/11/22, these fevers continued. He was started on braod spectrum antibiotics. CXR was without acute process, UA without signs of infection. Infectious disease was consulted. He was found to have coag negative staph bacteremia. CT chest without acute process. Patient seen and examined at bedside with family present. Feeling slightly down about being in the hospital. Cough is better, no nausea, no vomiting, no diarrhea. General: non toxic, no distress, appears at stated age Derm: warm, dry Head: atraumatic, normocephalic, symmetric Eyes: EOMI, no lid lag, anicteric sclera Mouth: no lip lesion, mucus membranes moist, no ulcerations Cardiovascular: S1S2 reg, no murmur, positive posterior tibial pulse bilateral, Lungs: Decreased bs bilateral, no rhonchi, no rales , no accessory muscle use Abdominal: soft, nontender to palpation, no guarding, no appreciable organomegaly Ext: no gross muscle atrophy, no edema, no contractures Neuro: CN II-XII grossly intact, no focal neuro deficits Psych: Alert, oriented, appropriate affect Assessment/plan: Persistent Neutropenic fevers Coag neg staph bacteremia - PICC line removed - ID recs - Vanco, cefepime, diflucan, acyclovir Acute myelogenous leukemia Pancytopenia- chemo induced with neutropenia, Anemia,and Thrombocytopenia -Oncology recommendations -Completed induction chemotherapy this admission - Prior total of 8 units pRBC, and 3 unit plt -Follow labs closely. 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 Epistaxis, resolved Await AM labs DVT prophylaxis: SCDs due to thrombocytopenia Discussed with: Patient, nursing, mother Anticipated discharge: In AM Anticipated discharge place: home A total of 25 minutes was spent on the care of this complex patient more than 50% of the time was spent in counseling and care coordination. Active Medications Generic Name Dose Route Start Last Admin Trade Name Freq PRN Reason Stop Dose Admin Acetaminophen 650 mg 03/13/22 17:19 03/16/22 08:06 Acetaminophen Tab 325 Mg Tab PO 650 mg Q6HR PRN Administration Fever and/ or Pain Hydrocodone Bitart/Acetaminophen 1 each 03/11/22 09:20 03/15/22 20:50 Hydrocodone/Apap 5-325mg 1 Each Tab PO 1 each Q6HR PRN Administration Moderate Pain Acyclovir 400 mg 03/02/22 09:00 03/16/22 08:07 Acyclovir 200 Mg Cap PO [address] [facility] Administration Protocol Allopurinol 300 mg 02/28/22 12:00 03/16/22 08:07 Allopurinol 300 Mg Tab PO 300 mg DAILY [facility] Administration Alprazolam 0.25 mg 02/28/22 11:53 03/15/22 19:30 Alprazolam 0.25 Mg Tab PO 0.25 mg TID PRN Administration Anxiety Benzonatate 100 mg 03/08/22 13:05 03/14/22 01:47 Benzonatate 100 Mg Cap PO 100 mg TID PRN Administration Cough Cholecalciferol 25 mcg 03/13/22 11:45 03/16/22 08:07 Cholecalciferol 25 Mcg (1000 Iu) Tablet PO [address] [facility] Administration Cyanocobalamin 1,000 mcg 03/05/22 19:00 03/16/22 08:07 Cyanocobalamin 500 Mcg Tab PO 1,000 mcg DAILY [facility] Administration Fluconazole 100 mg 03/02/22 09:00 03/16/22 08:06 Fluconazole 100 Mg Tab PO [address] [facility] Administration Protocol Folic Acid 0.5 mg 03/05/22 19:15 03/16/22 08:07 Folic Acid 1 Mg Tab PO 0.[address] [facility] Administration Guaifenesin 200 mg 02/27/22 13:04 03/14/22 01:47 Guaifenesin Syrup 100mg/5ml 200 Mg/10 Ml Cup PO 200 mg Q6HR PRN Administration Cough Lactated Ringer's 1,000 mls @ 75 mls/hr 03/11/22 09:15 03/16/22 02:20 Lactated Ringers IV Not Given .[id number] [facility] Cefepime HCl 2 gm/ Sodium 100 mls @ 25 mls/hr 03/11/22 10:00 03/16/22 02:17 Chloride IVPB 25 mls/hr Q8H [facility] Administration Vancomycin HCl 2,000 mg/ 500 mls @ 167 mls/hr 03/15/22 02:00 03/16/22 02:17 Sodium Chloride IVPB 167 mls/hr Q8H [facility] Administration Miscellaneous Information 0 each 03/16/22 09:00 [facility] 03/16[facility] 09:01 DIRECTED ONE Miscellaneous Information 1 each 03/15/22 12:45 Rx Info: Iv [facility] 03/17/22 12:45 DAILY PRN Per Protocol Naloxone HCl 0.2 mg 02/25/22 12:55 Naloxone 0.4 Mg/Ml 1 Ml Vial IV Q2M PRN Opioid Reversal Olanzapine 5 mg 03/02/22 21:00 03/15/22 19:30 Olanzapine 5 Mg Tab PO 5 mg HS [facility] Administration Ondansetron HCl 4 mg 02/25/22 12:55 Ondansetron 4 Mg/2 Ml Vial IVP Q8HR PRN Nausea And Vomiting Polyethylene Glycol 17 gm 03/07/22 11:15 03/16/22 08:10 Polyethylene Glycol 3350 17 Gm Powd.Pack PO Not Given DAILY [facility] Senna 8.6 mg 03/07/22 21:00 03/15/22 19:32 Sennosides 8.6 Mg Tab PO Not Given HS [facility] Sodium Bicarbonate 5 ml 02/28/22 12:00 03/16/22 06:11 Salt And Soda Mouthwash 1,000 Ml PO Not Given 5XD [facility] Temazepam 7.5 mg 03/10/22 19:48 03/12/22 20:54 Temazepam 7.5 Mg Cap PO 7.5 mg HS PRN Administration Insomnia Objective - Vital Signs Vital signs: Vital Signs Temp 98.9 F 03/16/22 05:00 Pulse 107 H 03/16/22 05:00 Resp 16 03/16/22 05:00 BP 130/79 03/16/22 05:00 Pulse Ox 99 03/16/22 05:00 FiO2 Intake & Output 03/15/22 03/16/22 03/16/22 18:59 06:59 18:59 Intake Total 1500 Balance 1500 Weight 115.666 kg Intake: Intake, IV Titration 1500 Amount Lactated Ringers 1,000 ml 1500 @ 125 mls/hr IV .Q8H [facility] Rx#:[id number] Other: Voiding Method Toilet Toilet # Voids 2 - Labs CBC & Chem 7: 03/15/22 06:11 03/15/22 06:11 Labs: Abnormal Lab Results - Last 24 Hours (Table) 03/15/22 03/15/22 Range/Units 06:11 06:11 C-Reactive Protein 12.50 H (0.00-0.80) mg/dL Procalcitonin 0.23 H (0.02-0.09) ng/mL Microbiology - Last 24 Hours (Table) 03/13/22 14:24 Blood Culture - Preliminary Blood No Growth after 48 hours 03/12/22 12:50 Blood Culture Gram Stain - Preliminary Blood Blood Culture - Preliminary Coagulase Negative Staph 03/12/22 13:14 Blood Culture Gram Stain - Preliminary Blood Blood Culture - Preliminary Coagulase Negative Staph 03/12/22 10:25 Blood Culture - Preliminary Blood No Growth after 72 hours 03/11/22 10:12 Blood Culture - Preliminary Blood No Growth after 96 hours 03/14/22 14:07 Catheter Tip Culture - Preliminary Picc Line 03/14/22 06:12 Blood Culture - Preliminary Blood No Growth after 24 hours
[2022-03-16] MEDS ORDERED: VANCOMYCIN TROUGH DUE 1 EACH MISC MISCELLANE ONE (09:00)
[2022-03-16 10:24] LABS: ALT 26 U/L (4-49); AST 16 U/L (17-59); African American GFR (CKD) >90 (>60 ml/min/1.73 sqM); Albumin 3.1 g/dL (3.5-5.0); Albumin/Globulin Ratio 1.2; Alkaline Phosphatase 45 U/L (38-126); Anion Gap 7 mmol/L; Blood Urea Nitrogen 8 mg/dL (9-20); Calcium 8.1 mg/dL (8.4-10.2); Carbon Dioxide 23 mmol/L (22-30); Chloride 104 mmol/L (98-107); Globulin 2.5 g/dL; Glucose 111 mg/dL (74-99); Non-African American GFR(CKD) >90 (>60 ml/min/1.73 sqM); Potassium 3.7 mmol/L (3.5-5.1); Sodium 134 mmol/L (137-145); Total Protein 5.6 g/dL (6.3-8.2)
--- NOTE | 2022-03-16 11:06 | P.PN ---
Subjective Progress Note Date: 03/16/22 Principal diagnosis: Pancytopenia, peripheral blasts-AML Pt is seen today in follow-up. Has completed 1st cycle of induction chemo. No fever since yesterday. PICC line has been removed, pending catheter tip cultures. Patient denies oral irritation, sore throat, rigors, mild nausea, no vomiting, appetite is fair, no chest pain, dry cough, no expectoration or hemopt ysis, dysuria, stool has solid components, denies abdominal pain or cramping, rash, swelling or bleeding. He is reporting blurred vision, both near and distant, no double vision or loss, no eye pain or SOTO. Objective - Vital Signs Vital signs: Vital Signs Temp 99 F 03/16/22 10:26 Pulse 107 H 03/16/22 05:00 Resp 16 03/16/22 05:00 BP 130/79 03/16/22 05:00 Pulse Ox 99 03/16/22 05:00 FiO2 Intake & Output 03/15/22 03/16/22 03/16/22 18:59 06:59 18:59 Intake Total 1500 Balance 1500 Weight 115.666 kg Intake: Intake, IV Titration 1500 Amount Lactated Ringers 1,000 ml 1500 @ 125 mls/hr IV .Q8H [facility] Rx#:[id number] Other: Voiding Method Toilet Toilet # Voids 2 - Constitutional General appearance: Present: average body habitus, cooperative, no acute distress - EENT Eyes: Present: anicteric sclerae, EOMI ENT: Present: hearing grossly normal, normal oropharynx - Respiratory Respiratory: bilateral: CTA - Cardiovascular Rhythm: regular Heart sounds: normal: S1, S2 Abnormal Heart Sounds: Absent: systolic murmur, diastolic murmur, rub, S3 Gallop, S4 Gallop, click, other - Peripheral edema leg Peripheral Edema: bilateral: None - Gastrointestinal General gastrointestinal: Present: normal bowel sounds, soft. Absent: absent bowel sounds, decreased bowel sounds, distended, hepatomegaly, hyperactive bowel sounds, organomegaly, rigid, scaphoid, splenomegaly, tenderness, umbilical hernia, ventral hernia - Integumentary Integumentary: Present: pale - Neurologic Neurologic: Present: CNII-XII intact - Musculoskeletal Musculoskeletal: Present: generalized weakness, strength equal bilaterally - Psychiatric Psychiatric: Present: A&O x's 3, appropriate affect, intact judgment & insight - Labs CBC & Chem 7: 03/15/22 06:11 03/16/22 08:44 Labs: Abnormal Lab Results - Last 24 Hours (Table) 03/15/22 03/15/22 03/16/22 Range/Units 06:11 06:11 08:44 Sodium 134 L (137-145) mmol/L BUN 8 L (9-20) mg/dL Creatinine 0.65 L (0.66-1.25) mg/dL Glucose 111 H (74-99) mg/dL Calcium 8.1 L (8.4-10.2) mg/dL AST 16 L (17-59) U/L C-Reactive Protein 12.50 H (0.00-0.80) mg/dL Total Protein 5.6 L (6.3-8.2) g/dL Albumin 3.1 L (3.5-5.0) g/dL Procalcitonin 0.23 H (0.02-0.09) ng/mL Microbiology - Last 24 Hours (Table) 03/14/22 14:07 Catheter Tip Culture - Final Picc Line 03/14/22 06:12 Blood Culture - Preliminary Blood No Growth after 48 hours 03/13/22 14:24 Blood Culture - Preliminary Blood No Growth after 48 hours 03/12/22 12:50 Blood Culture Gram Stain - Preliminary Blood Blood Culture - Preliminary Coagulase Negative Staph 03/12/22 13:14 Blood Culture Gram Stain - Preliminary Blood Blood Culture - Preliminary Coagulase Negative Staph 03/12/22 10:25 Blood Culture - Preliminary Blood No Growth after 72 hours 03/11/22 10:12 Blood Culture - Preliminary Blood No Growth after 96 hours Assessment and Plan (1) AML (acute myelogenous leukemia) Current Visit: Yes Status: Acute Priority: High Code(s): C92.00 - ACUTE MYELOBLASTIC LEUKEMIA, NOT HAVING ACHIEVED REMISSION SNOMED Code(s): 26895573 (2) Neutropenic fever Current Visit: Yes Status: Acute Priority: High Code(s): D70.9 - NEUTROPENIA, UNSPECIFIED; R50.81 - FEVER PRESENTING WITH CONDITIONS CLASSIFIED ELSEWHERE SNOMED Code(s): 255975428 (3) Pancytopenia due to antineoplastic chemotherapy Current Visit: Yes Status: Acute Priority: High Code(s): D61.810 - ANTINEOPLASTIC CHEMOTHERAPY INDUCED PANCYTOPENIA; T45.1X5A - ADVERSE EFFECT OF ANTINEOPLASTIC AND IMMUNOSUP DRUGS, INIT SNOMED Code(s): 892450873576963 Plan: S/P 7+3 induction chemo for newly diagnosed AML, completed 03/08 ID following. Empiric abx, antiviral and antifungal. Positive blood culture for coagulase negative staph. PICC line removed, pending cultures. No fever since yesterday Conservative transfusions for anemia and thrombocytopenia. Transfuse for Hgb <7 and plt <10K unless symptomatic. Irradiated blood products only. No GCSF as pt is not a confirmed remission Daily labs Cont allopurinol Supportive medications [place] fluids Activity as tolerated, out of bed for meals Reviewed cytogenetics with pt and mother-one favorable mutation and 1 mutation not favorable but not a serious unfavorable mutation. Plan is for repeat BM Bx and asp as soon as CBC indicates recovery to assess for remission status. Referral to BMT for evaluation and recommendations. Discussed possible addition of antidepressant All questions and concerns answered to pt and mother satisfaction. Time with Patient: Greater than 30
[2022-03-16 11:52] LABS: Immature Platelet Fraction 0.7 % (1.1-6.1); MCHC 34.1 g/dL (32.0-37.0); Mean Platelet Volume 9.3 fL (9.5-12.2); NRBC Per 100 WBC 0 /100 WBCS (0.0-0.0); RBC 2.07 X 10*6/uL (4.40-5.60); RDW 15.1 % (11.5-14.5)
[2022-03-16 11:53] LABS: Acanthocytes 2+; Microcytosis (M) 2+; Neutrophils % (M) 0 %; Sickle Cells 2+
[2022-03-16] MEDS: HYDROcodone/APAP 5-325MG 1 EACH TAB PO PRN ×2 (11:53→18:22)
[2022-03-16 15:01] LABS: WBC 0.8 X 10*3/uL (4.50-10.00)
[2022-03-16 15:03] LABS: HCT 17.6 % (39.6-50.0); Platelet Count 6 X 10*3/uL (140-440)
[2022-03-16] MEDS: OLANZapine 5 MG TAB PO SCH (20:48)
[2022-03-16] MEDS: SENNOSIDES 8.6 MG TAB PO SCH (20:49)
[2022-03-16] MEDS: ALPRAZolam 0.25 MG TAB PO PRN (20:52)
[2022-03-17] MEDS: CEFEPIME 2 GM in SODIUM CHLORIDE 0.9% 100 ML IVPB SCH ×3 (01:28→17:38)
[2022-03-17] MEDS: VANCOMYCIN 2,000 MG in SODIUM CHLORIDE 0.9% 500 ML 500 ML IVPB SCH ×3 (01:28→17:38)
[2022-03-17] MEDS: LACTATED RINGERS 1,000 ML IV SCH ×2 (01:32→17:42)
[2022-03-17] MEDS: SALT AND SODA MOUTHWASH 1,000 ML PO SCH ×4 (01:32→17:43)
[2022-03-17 08:55] LABS: HCT 20.5 % (39.0-53.0); HGB 7.1 gm/dL (13.0-17.5); MCH 29.7 pg (25.0-35.0); MCHC 34.8 g/dL (31.0-37.0); MCV 85.5 fL (80.0-100.0); Mean Platelet Volume 8.3; RDW 14.6 % (11.5-15.5)
[2022-03-17 09:09] LABS: WBC 0.7 k/uL (3.8-10.6)
[2022-03-17 09:11] LABS: Platelet Count 22 k/uL (150-450)
[2022-03-17 09:12] LABS: ALT 27 U/L (4-49); AST 15 U/L (17-59); African American GFR (CKD) >90 (>60 ml/min/1.73 sqM); Albumin 3.2 g/dL (3.5-5.0); Albumin/Globulin Ratio 1.2; Alkaline Phosphatase 52 U/L (38-126); Anion Gap 7 mmol/L; Blood Urea Nitrogen 9 mg/dL (9-20); Calcium 8.2 mg/dL (8.4-10.2); Carbon Dioxide 22 mmol/L (22-30); Chloride 105 mmol/L (98-107); Globulin 2.6 g/dL; Glucose 123 mg/dL (74-99); Non-African American GFR(CKD) >90 (>60 ml/min/1.73 sqM); Partial Thromboplastin Time 27.5 sec (22.0-30.0); Potassium 3.8 mmol/L (3.5-5.1); Sodium 134 mmol/L (137-145); Total Bilirubin 1.1 mg/dL (0.2-1.3); Total Protein 5.8 g/dL (6.3-8.2)
[2022-03-17] MEDS: ACYCLOVIR 200 MG CAP PO SCH ×2 (09:12→20:55)
[2022-03-17] MEDS: CYANOCOBALAMIN 500 MCG TAB PO SCH (09:13)
[2022-03-17] MEDS: allopurinoL 300 MG TAB PO SCH (09:14)
[2022-03-17] MEDS: CHOLECALCIFEROL 25 MCG (1000 IU) TABLET PO SCH (09:14)
[2022-03-17] MEDS: FOLIC ACID 1 MG TAB PO SCH (09:16)
[2022-03-17] MEDS: polyethylene glycoL 3350 17 GM POWD.PACK PO SCH (09:16)
[2022-03-17] MEDS: FLUCONAZOLE 100 MG TAB PO SCH (09:22)
[2022-03-17 12:08] LABS: RBC Morphology Normal
[2022-03-17 15:32] LABS: Magnesium 1.7 mg/dL (1.5-2.4); Phosphorus 3.2 mg/dL (2.4-5.1)
--- NOTE | 2022-03-17 16:49 | P.PN ---
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 He had been started on antibiotics for possible pneumonia and blood work was ordered. This showed significant thrombocytopenia since told to come to the ER. 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 Oncology started him on induction chemotherapy. He spiked a fever of 100.9 on 03/11/22, these fevers continued. He was started on braod spectrum antibiotics. CXR was without acute process, UA without signs of infection. Infectious disease was consulted. He was found to have coag negative staph bacteremia. CT chest without acute process. Patient seen and examined at bedside with family present. Feeling slightly down about being in the hospital. Cough is better, no nausea, no vomiting, no diarrhea. General: non toxic, no distress, appears at stated age Derm: warm, dry Head: atraumatic, normocephalic, symmetric Eyes: EOMI, no lid lag, anicteric sclera Mouth: no lip lesion, mucus membranes moist, no ulcerations Cardiovascular: S1S2 reg, no murmur, positive posterior tibial pulse bilateral, Lungs: Decreased bs bilateral, no rhonchi, no rales , no accessory muscle use Abdominal: soft, nontender to palpation, no guarding, no appreciable orga nomegaly Ext: no gross muscle atrophy, no edema, no contractures Neuro: CN II-XII grossly intact, no focal neuro deficits Psych: Alert, oriented, appropriate affect Assessment/plan: Persistent Neutropenic fevers Staph hominis bacteremia - PICC line removed - ID recs - D/W heme/onc plan to transition to orals --levaquin over the weekend if okay with ID, will need PICC replaced prior to discharge. - Vanco, cefepime, diflucan, acyclovir Acute myelogenous leukemia Pancytopenia- chemo induced with neutropenia, Anemia,and Thrombocytopenia -Oncology recommendations -Completed induction chemotherapy this admission - Prior total of 8 units pRBC, and 3 unit plt - Follow labs closely. 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 Epistaxis, resolved DVT prophylaxis: SCDs due to thrombocytopenia Discussed with: Patient, nursing, mother Anticipated discharge: 03/20/[address]: home A total of 25 minutes was spent on the care of this complex patient more than 50% of the time was spent in counseling and care coordination. Active Medications Generic Name Dose Route Start Last Admin Trade Name Freq PRN Reason Stop Dose Admin Acetaminophen 650 mg 03/13/22 17:19 03/16/22 08:06 Acetaminophen Tab 325 Mg Tab PO 650 mg Q6HR PRN Administration Fever and/ or Pain Hydrocodone Bitart/Acetaminophen 1 each 03/11/22 09:20 03/16/22 18:22 Hydrocodone/Apap 5-325mg 1 Each Tab PO 1 each Q6HR PRN Administration Moderate Pain Acyclovir 400 mg 03/02/22 09:00 03/17/22 09:12 Acyclovir 200 Mg Cap PO 400 mg BID [facility] Administration Protocol Allopurinol 300 mg 02/28/22 12:00 03/17/22 09:14 Allopurinol 300 Mg Tab PO 300 mg DAILY [facility] Administration Alprazolam 0.25 mg 02/28/22 11:53 03/16/22 20:52 Alprazolam 0.25 Mg Tab PO 0.25 mg TID PRN Administration Anxiety Benzonatate 100 mg 03/08/22 13:05 03/14/22 01:47 Benzonatate 100 Mg Cap PO 100 mg TID PRN Administration Cough Cholecalciferol 25 mcg 03/13/22 11:45 03/17/22 09:14 Cholecalciferol 25 Mcg (1000 Iu) Tablet PO 25 mcg DAILY [facility] Administration Cyanocobalamin 1,000 mcg 03/05/22 19:00 03/17/22 09:13 Cyanocobalamin 500 Mcg Tab PO 1,000 mcg DAILY [facility] Administration Fluconazole 100 mg 03/02/22 09:00 03/17/22 09:22 Fluconazole 100 Mg Tab PO 100 mg DAILY [facility] Administration Protocol Folic Acid 0.5 mg 03/05/22 19:15 03/17/22 09:16 Folic Acid 1 Mg Tab PO 0.5 mg DAILY [facility] Administration Guaifenesin 200 mg 02/27/22 13:04 03/14/22 01:47 Guaifenesin Syrup 100mg/5ml 200 Mg/10 Ml Cup PO 200 mg Q6HR PRN Administration Cough Lactated Ringer's 1,000 mls @ 75 mls/hr 03/11/22 09:15 03/17/22 01:32 Lactated Ringers IV 75 mls/hr .[id number] [facility] Administration Cefepime HCl 2 gm/ Sodium 100 mls @ 25 mls/hr 03/11/22 10:00 03/17/22 09:15 Chloride IVPB 25 mls/hr Q8H [facility] Administration Vancomycin HCl 2,000 mg/ 500 mls @ 167 mls/hr 03/15/22 02:00 03/17/22 09:15 Sodium Chloride IVPB 167 mls/hr Q8H [facility] Administration Naloxone HCl 0.2 mg 02/25/22 12:55 Naloxone 0.4 Mg/Ml 1 Ml Vial IV Q2M PRN Opioid Reversal Olanzapine 5 mg 03/02/22 21:00 03/16/22 20:48 Olanzapine 5 Mg Tab PO 5 mg HS [facility] Administration Ondansetron HCl 4 mg 02/25/22 12:55 Ondansetron 4 Mg/2 Ml Vial IVP Q8HR PRN Nausea And Vomiting Polyethylene Glycol 17 gm 03/07/22 11:15 03/17/22 09:16 Polyethylene Glycol 3350 17 Gm Powd.Pack PO Not Given DAILY [facility] Senna 8.6 mg 03/07/22 21:00 03/16/22 20:49 Sennosides 8.6 Mg Tab PO Not Given HS [facility]NA Sodium Bicarbonate 5 ml 02/28/22 12:00 03/17/22 12:42 Salt And Soda Mouthwash 1,000 Ml PO 5 ml 5XD [facility] Administration Temazepam 7.5 mg 03/10/22 19:48 03/12/22 20:54 Temazepam 7.5 Mg Cap PO 7.5 mg HS PRN Administration Insomnia Objective - Vital Signs Vital signs: Vital Signs Temp 98.8 F 03/17/22 04:56 Pulse 96 03/17/22 04:56 Resp 16 03/17/22 04:56 BP 123/74 03/17/22 04:56 Pulse Ox 98 03/17/22 04:56 FiO2 Intake & Output 03/16/22 03/17/22 03/17/22 18:59 06:59 18:59 Intake Total 310 360 Balance 310 360 Intake: Blood Product 310 360 Platelet Pheresis Pas 360 Psoralen Unit [id number] Rc Irr As1 Unit 310 [id number] Other: Voiding Method Toilet Toilet # Voids 1 - Labs CBC & Chem 7: 03/17/22 08:20 03/17/22 08:20 Labs: Abnormal Lab Results - Last 24 Hours (Table) 03/14/22 03/16/22 03/17/22 Range/Units 08:19 08:44 08:20 WBC 0.8 L* 0.7 L* (4.50-10.00) k/uL RBC 2.07 L 2.40 L (4.40-5.60) m/uL Hgb 6.0 L* 7.1 L (13.0-17.0) gm/dL Hct 17.6 L* 20.5 L (39.6-50.0) % RDW 15.1 H (11.5-14.5) % Plt Count 6 L* 22 L D (140-440) k/uL Plt Count Comment A MPV 9.3 L (9.5-12.2) fL Immature Plt Fraction 0.7 L (1.1-6.1) % Fibrinogen (200-500) mg/dL Sodium (137-145) mmol/L Glucose (74-99) mg/dL Calcium (8.4-10.2) mg/dL AST (17-59) U/L Total Protein (6.3-8.2) g/dL Albumin (3.5-5.0) g/dL Crossmatch See Detail 03/17/22 03/17/22 Range/Units 08:20 08:20 WBC (4.50-10.00) k/uL RBC (4.40-5.60) m/uL Hgb (13.0-17.0) gm/dL Hct (39.6-50.0) % RDW (11.5-14.5) % Plt Count (140-440) k/uL Plt Count Comment MPV (9.5-12.2) fL Immature Plt Fraction (1.1-6.1) % Fibrinogen 900 H (200-500) mg/dL Sodium 134 L (137-145) mmol/L Glucose 123 H (74-99) mg/dL Calcium 8.2 L (8.4-10.2) mg/dL AST 15 L (17-59) U/L Total Protein 5.8 L (6.3-8.2) g/dL Albumin 3.2 L (3.5-5.0) g/dL Crossmatch Microbiology - Last 24 Hours (Table) 03/14/22 06:12 Blood Culture - Preliminary Blood No Growth after 72 hours 03/13/22 14:24 Blood Culture - Preliminary Blood No Growth after 72 hours 03/12/22 10:25 Blood Culture - Preliminary Blood No Growth after 96 hours 03/11/22 10:12 Blood Culture - Preliminary Blood No Growth after 120 hours 03/14/22 14:07 Catheter Tip Culture - Final Picc Line
--- NOTE | 2022-03-17 20:50 | P.PN ---
Subjective Progress Note Date: 03/17/22 Principal diagnosis: Confirmed AML Afebrile, CBC stable no transfusions required. Objective - Vital Signs Vital signs: Vital Signs Temp 98.8 F 03/17/22 04:56 Pulse 96 03/17/22 11:19 Resp 16 03/17/22 11:19 BP 123/74 03/17/22 04:56 Pulse Ox 98 03/17/22 04:56 FiO2 Intake & Output 03/16/22 03/17/22 03/17/22 18:59 06:59 18:59 Intake Total 310 360 Balance 310 360 Intake: Blood Product 310 360 Platelet Pheresis Pas 360 Psoralen Unit [id number] Rc Irr As1 Unit 310 [id number] Other: Voiding Method Toilet Toilet Toilet # Voids 1 - Exam - EENT Eyes: EOMI ENT: NA/AT - Respiratory Respiratory: bilateral: CTA - Cardiovascular Rhythm: regular - Gastrointestinal General gastrointestinal: soft - Integumentary Integumentary: pale - Neurologic Neurologic: CNII-XII intact - Musculoskeletal Musculoskeletal: generalized weakness, strength equal bilaterally - Psychiatric Psychiatric: A&O x's 3, appropriate affect, intact judgment & insight - Labs CBC & Chem 7: 03/17/22 08:20 03/17/22 08:20 Labs: Abnormal Lab Results - Last 24 Hours (Table) 03/14/22 03/16/22 03/17/22 Range/Units 08:19 08:44 08:20 WBC 0.8 L* 0.7 L* (4.50-10.00) k/uL RBC 2.07 L 2.40 L (4.40-5.60) m/uL Hgb 6.0 L* 7.1 L (13.0-17.0) gm/dL Hct 17.6 L* 20.5 L (39.6-50.0) % RDW 15.1 H (11.5-14.5) % Plt Count 6 L* 22 L D (140-440) k/uL Fibrinogen (200-500) mg/dL Sodium (137-145) mmol/L Glucose (74-99) mg/dL Calcium (8.4-10.2) mg/dL AST (17-59) U/L Total Protein (6.3-8.2) g/dL Albumin (3.5-5.0) g/dL Crossmatch See Detail 03/17/22 03/17/22 Range/Units 08:20 08:20 WBC (4.50-10.00) k/uL RBC (4.40-5.60) m/uL Hgb (13.0-17.0) gm/dL Hct (39.6-50.0) % RDW (11.5-14.5) % Plt Count (140-440) k/uL Fibrinogen 900 H (200-500) mg/dL Sodium 134 L (137-145) mmol/L Glucose 123 H (74-99) mg/dL Calcium 8.2 L (8.4-10.2) mg/dL AST 15 L (17-59) U/L Total Protein 5.8 L (6.3-8.2) g/dL Albumin 3.2 L (3.5-5.0) g/dL Crossmatch Microbiology - Last 24 Hours (Table) 03/14/22 06:12 Blood Culture - Preliminary Blood No Growth after 72 hours 03/13/22 14:24 Blood Culture - Preliminary Blood No Growth after 72 hours 03/12/22 10:25 Blood Culture - Preliminary Blood No Growth after 96 hours 03/11/22 10:12 Blood Culture - Preliminary Blood No Growth after 120 hours 03/14/22 14:07 Catheter Tip Culture - Final Picc Line Assessment and Plan (1) AML (acute myelogenous leukemia) Current Visit: Yes Status: Acute Priority: High Code(s): C92.00 - ACUTE MYELOBLASTIC LEUKEMIA, NOT HAVING ACHIEVED REMISSION SNOMED Code(s): 75498826 (2) Leukocytosis Current Visit: Yes Status: Acute Priority: High Code(s): D72.829 - ELEVATED WHITE BLOOD CELL COUNT, UNSPECIFIED SNOMED Code(s): 530848376 (3) Thrombocytopenia Current Visit: Yes Status: Acute Code(s): D69.6 - THROMBOCYTOPENIA, UNSPECIFIED SNOMED Code(s): 378397954 (4) Coagulopathy Current Visit: Yes Status: Acute Code(s): D68.9 - COAGULATION DEFECT, UNSPECIFIED SNOMED Code(s): 99864054 Plan: Assessment and Plan (1) AML (acute myelogenous leukemia) Current Visit: Yes Status: Acute Priority: High Code(s): C92.00 - ACUTE MYELOBLASTIC LEUKEMIA, NOT HAVING ACHIEVED REMISSION SNOMED Code(s): 68397360 (2) Neutropenic fever Current Visit: Yes Status: Acute Priority: High Code(s): D70.9 - NEUTROPENIA, UNSPECIFIED; R50.81 - FEVER PRESENTING WITH CONDITIONS CLASSIFIED ELSEWHERE SNOMED Code(s): 008214098 (3) Pancytopenia due to antineoplastic chemotherapy Current Visit: Yes Status: Acute Priority: High Code(s): D61.810 - ANTINEOPLASTIC CHEMOTHERAPY INDUCED PANCYTOPENIA; T45.1X5A - ADVERSE EFFECT OF ANTINEOPLASTIC AND IMMUNOSUP DRUGS, INIT SNOMED Code(s): 319864320410522 Plan: S/P 7+3 induction chemo for newly diagnosed AML, completed 03/08 ID following. Empiric abx, antiviral and antifungal. Positive blood culture for coagulase negative staph. PICC line removed, pending cultures. No fever since yesterday Conservative transfusions for anemia and thrombocytopenia. Transfuse for Hgb <7 and plt <10K unless symptomatic. Irradiated blood products only. No GCSF as pt is not a confirmed remission Daily labs Cont allopurinol Supportive medications [place] fluids Activity as tolerated, out of bed for meals Reviewed cytogenetics with pt and mother-one favorable mutation and 1 mutation not favorable but not a serious unfavorable mutation. Plan is for repeat BM Bx and asp as soon as CBC indicates recovery to assess for remission status. Referral to BMT for evaluation and recommendations. no transfusions needed today, patient is also afebrile, continue plan and am labs De. Attest: I have completed the full history and physical and agree with above dictation, dictated as a ascribe
[2022-03-17] MEDS: ALPRAZolam 0.25 MG TAB PO PRN (20:55)
[2022-03-17] MEDS: OLANZapine 5 MG TAB PO SCH (20:55)
[2022-03-17] MEDS: SENNOSIDES 8.6 MG TAB PO SCH (20:55)
--- NOTE | 2022-03-17 22:25 | P.PN ---
Subjective Progress Note Date: 03/16/22 Principal diagnosis: Febrile neutropenia Patient is a 26-year-old male with the acute myelogenous leukemia admitted to the hospital for induction of chemotherapy patient did have right upper extremity PICC line for chemotherapy developing a fever. On today's evaluation that is 03/16/2022, patient is afebrile for more than 24 hours, patient denies any chest pain or shortness of breath, the patient comes has diffuse intensity and remains to be dry in nature, patient denies having any nausea no vomiting no, and no diarrhea Objective - Vital Signs Vital signs: Vital Signs Temp 99.3 F 03/16/22 13:12 Pulse 91 03/16/22 13:12 Resp 18 03/16/22 13:12 BP 124/74 03/16/22 13:12 Pulse Ox 98 03/16/22 13:12 FiO2 Intake & Output 03/15/22 03/16/22 03/16/22 18:59 06:59 18:59 Intake Total 1500 0 Balance 1500 0 Weight 115.666 kg Intake: Intake, IV Titration 1500 Amount Lactated Ringers 1,000 ml 1500 @ 125 mls/hr IV .Q8H [facility] Rx#:[id number] Blood Product 0 Rc Irr As1 Unit 0 [id number] Other: Voiding Method Toilet Toilet Toilet # Voids 2 - Exam GENERAL DESCRIPTION: A middle-age male lying in bed in no distress RESPIRATORY SYSTEM: Unlabored breathing , decreased breath sounds at bases HEART: S1 S2 regular rate and rhythm , ABDOMEN: Soft , no tenderness EXTREMITIES: No edema feet - Labs CBC & Chem 7: 03/17/22 08:20 03/17/22 08:20 Labs: Abnormal Lab Results - Last 24 Hours (Table) 03/14/22 03/15/22 03/15/22 Range/Units 08:19 06:11 06:11 Plt Count Comment MPV (9.5-12.2) fL Immature Plt Fraction (1.1-6.1) % Sodium (137-145) mmol/L BUN (9-20) mg/dL Creatinine (0.66-1.25) mg/dL Glucose (74-99) mg/dL Calcium (8.4-10.2) mg/dL AST (17-59) U/L C-Reactive Protein 12.50 H (0.00-0.80) mg/dL Total Protein (6.3-8.2) g/dL Albumin (3.5-5.0) g/dL Procalcitonin 0.23 H (0.02-0.09) ng/mL Crossmatch See Detail 03/16/22 03/16/22 Range/Units 08:44 08:44 Plt Count Comment A MPV 9.3 L (9.5-12.2) fL Immature Plt Fraction 0.7 L (1.1-6.1) % Sodium 134 L (137-145) mmol/L BUN 8 L (9-20) mg/dL Creatinine 0.65 L (0.66-1.25) mg/dL Glucose 111 H (74-99) mg/dL Calcium 8.1 L (8.4-10.2) mg/dL AST 16 L (17-59) U/L C-Reactive Protein (0.00-0.80) mg/dL Total Protein 5.6 L (6.3-8.2) g/dL Albumin 3.1 L (3.5-5.0) g/dL Procalcitonin (0.02-0.09) ng/mL Crossmatch Microbiology - Last 24 Hours (Table) 03/12/22 10:25 Blood Culture - Preliminary Blood No Growth after 96 hours 03/11/22 10:12 Blood Culture - Preliminary Blood No Growth after 120 hours 03/14/22 14:07 Catheter Tip Culture - Final Picc Line 03/14/22 06:12 Blood Culture - Preliminary Blood No Growth after 48 hours 03/13/22 14:24 Blood Culture - Preliminary Blood No Growth after 48 hours 03/12/22 12:50 Blood Culture Gram Stain - Preliminary Blood Blood Culture - Preliminary Coagulase Negative Staph 03/12/22 13:14 Blood Culture Gram Stain - Preliminary Blood Blood Culture - Preliminary Coagulase Negative Staph Assessment and Plan (1) Neutropenic fever Current Visit: Yes Status: Acute Priority: High Code(s): D70.9 - NEUTROPENIA, UNSPECIFIED; R50.81 - FEVER PRESENTING WITH CONDITIONS CLASSIFIED ELSEWHERE SNOMED Code(s): 375013870 Plan: 1patient with a febrile neutropenia in this patient with acute myelogenous leukemia admitted to the hospital for induction of chemotherapy and is day 10 of induction therapy patient did have a right upper arm PICC line which was placed this admission on his symptoms of nosebleed but no other obvious signs and symptoms of infection and the work-up has been negative so far with a negative chest x-ray negative UA abdominal soft frontal examination CT of the brain with left maxillary sinusitis however CT of the sinuses did not show any evidence of sinusitis. 2patient blood cultures came back positive with gram-positive cocci which has been finalized as coagulase negative staph, keeping in mind his persistent fever patient PICC line was discontinued, the patient also have CT of the chest which did not show any pneumonia 3-patient to continue cefepime and vancomycin and monitor clinical course silver sely Time with Patient: Less than 30
--- NOTE | 2022-03-17 22:26 | P.PN ---
Subjective Progress Note Date: 03/17/22 Principal diagnosis: Febrile neutropenia Patient is a 26-year-old male with the acute myelogenous leukemia admitted to the hospital for induction of chemotherapy patient did have right upper extremity PICC line for chemotherapy developing a fever. On today's evaluation that is 03/17/2022, patient is afebrile for more than 48 hours, patient denies any chest pain or shortness of breath, the patient cough has decreased in intensity, patient denies having any nausea no vomiting no, and no diarrhea Objective - Vital Signs Vital signs: Vital Signs Temp 98.8 F 03/17/22 04:56 Pulse 96 03/17/22 11:19 Resp 16 03/17/22 11:19 BP 123/74 03/17/22 04:56 Pulse Ox 98 03/17/22 04:56 FiO2 Intake & Output 03/16/22 03/17/22 03/17/22 18:59 06:59 18:59 Intake Total 310 360 Balance 310 360 Intake: Blood Product 310 360 Platelet Pheresis Pas 360 Psoralen Unit [id number] Rc Irr As1 Unit 310 [id number] Other: Voiding Method Toilet Toilet Toilet # Voids 1 - Exam GENERAL DESCRIPTION: A middle-age male lying in bed in no distress RESPIRATORY SYSTEM: Unlabored breathing , decreased breath sounds at bases HEART: S1 S2 regular rate and rhythm , ABDOMEN: Soft , no tenderness EXTREMITIES: No edema feet - Labs CBC & Chem 7: 03/17/22 08:20 03/17/22 08:20 Labs: Abnormal Lab Results - Last 24 Hours (Table) 03/14/22 03/16/22 03/17/22 Range/Units 08:19 08:44 08:20 WBC 0.8 L* 0.7 L* (4.50-10.00) k/uL RBC 2.07 L 2.40 L (4.40-5.60) m/uL Hgb 6.0 L* 7.1 L (13.0-17.0) gm/dL Hct 17.6 L* 20.5 L (39.6-50.0) % RDW 15.1 H (11.5-14.5) % Plt Count 6 L* 22 L D (140-440) k/uL Fibrinogen (200-500) mg/dL Sodium (137-145) mmol/L Glucose (74-99) mg/dL Calcium (8.4-10.2) mg/dL AST (17-59) U/L Total Protein (6.3-8.2) g/dL Albumin (3.5-5.0) g/dL Crossmatch See Detail 03/17/22 03/17/22 Range/Units 08:20 08:20 WBC (4.50-10.00) k/uL RBC (4.40-5.60) m/uL Hgb (13.0-17.0) gm/dL Hct (39.6-50.0) % RDW (11.5-14.5) % Plt Count (140-440) k/uL Fibrinogen 900 H (200-500) mg/dL Sodium 134 L (137-145) mmol/L Glucose 123 H (74-99) mg/dL Calcium 8.2 L (8.4-10.2) mg/dL AST 15 L (17-59) U/L Total Protein 5.8 L (6.3-8.2) g/dL Albumin 3.2 L (3.5-5.0) g/dL Crossmatch Microbiology - Last 24 Hours (Table) 03/12/22 10:25 Blood Culture - Preliminary Blood No Growth after 120 hours 03/11/22 10:12 Blood Culture - Final Blood No Growth after 144 hours 03/14/22 06:12 Blood Culture - Preliminary Blood No Growth after 72 hours 03/13/22 14:24 Blood Culture - Preliminary Blood No Growth after 72 hours 03/14/22 14:07 Catheter Tip Culture - Final Picc Line Assessment and Plan (1) Neutropenic fever Current Visit: Yes Status: Acute Priority: High Code(s): D70.9 - NEUTROPENIA, UNSPECIFIED; R50.81 - FEVER PRESENTING WITH CONDITIONS CLASSIFIED ELSEWHERE SNOMED Code(s): 711538174 Plan: 1patient with a febrile neutropenia in this patient with acute myelogenous leukemia admitted to the hospital for induction of chemotherapy and is day 10 of induction therapy patient did have a right upper arm PICC line which was placed this admission on his symptoms of nosebleed but no other obvious signs and symptoms of infection and the work-up has been negative so far with a negative chest x-ray negative UA abdominal soft frontal examination CT of the brain with left maxillary sinusitis however CT of the sinuses did not show any evidence of sinusitis. 2patient blood cultures came back positive with gram-positive cocci which has been finalized as coagulase negative staph, keeping in mind his persistent fever patient PICC line was discontinued, the patient also have CT of the chest which did not show any pneumonia 3-patient fever has resolved and we'll continue cefepime and vancomycin and monitor clinical course closely Time with Patient: Less than 30
[2022-03-18] MEDS: SALT AND SODA MOUTHWASH 1,000 ML PO SCH ×6 (00:12→20:51)
[2022-03-18] MEDS: CEFEPIME 2 GM in SODIUM CHLORIDE 0.9% 100 ML IVPB SCH ×3 (02:13→18:12)
[2022-03-18] MEDS: VANCOMYCIN 2,000 MG in SODIUM CHLORIDE 0.9% 500 ML 500 ML IVPB SCH ×2 (02:13→09:21)
[2022-03-18] MEDS: LACTATED RINGERS 1,000 ML IV SCH ×2 (02:13→16:15)
[2022-03-18 08:23] LABS: MCH 29.6 pg (25.0-35.0); MCHC 34.7 g/dL (31.0-37.0); MCV 85.2 fL (80.0-100.0); Mean Platelet Volume 9.4; RBC 2.29 m/uL (4.30-5.90); RDW 14.9 % (11.5-15.5)
[2022-03-18 08:32] LABS: WBC 0.8 k/uL (3.8-10.6)
[2022-03-18 08:33] LABS: HCT 19.5 % (39.0-53.0); HGB 6.8 gm/dL (13.0-17.5)
[2022-03-18 08:34] LABS: Platelet Count 19 k/uL (150-450)
[2022-03-18 08:49] LABS: African American GFR (CKD) >90 (>60 ml/min/1.73 sqM); Non-African American GFR(CKD) >90 (>60 ml/min/1.73 sqM)
[2022-03-18 09:01] LABS: C Reactive Protein 13.6 mg/dL (<1.0)
[2022-03-18] MEDS: CYANOCOBALAMIN 500 MCG TAB PO SCH (09:15)
[2022-03-18] MEDS: ACYCLOVIR 200 MG CAP PO SCH ×2 (09:19→20:51)
[2022-03-18] MEDS: FOLIC ACID 1 MG TAB PO SCH (09:19)
[2022-03-18] MEDS: CHOLECALCIFEROL 25 MCG (1000 IU) TABLET PO SCH (09:21)
[2022-03-18] MEDS: allopurinoL 300 MG TAB PO SCH (09:21)
[2022-03-18] MEDS: FLUCONAZOLE 100 MG TAB PO SCH (09:26)
[2022-03-18] MEDS: polyethylene glycoL 3350 17 GM POWD.PACK PO SCH (09:32)
[2022-03-18 09:46] LABS: Anisocytosis (M) Present; Poikilocytosis (M) Present
--- NOTE | 2022-03-18 10:51 | P.PN ---
Subjective Progress Note Date: 03/18/22 Patient is doing okay today. Has no complaints. Has not spiked a fever in the last 72 hours. Continues to be on IV vancomycin, cefepime. Repeat blood cultures on 03/13 show no growth to date. Gen: awake, alert HEENT: normocephalic, atraumatic, good hearing acuity, moist mucous membranes Resp: good air exchange, breathing comfortably with no accessory muscle use CVS: good distal perfusion x 4, GI: soft, NTTP, ND : no SPT, no CVAT, watkins catheter not present MSK: no pitting edema, no clubbing Neuro: non-focal, moving all extremities Psych: cooperative, euthymic mood Persistent Neutropenic fevers Staph hominis bacteremia - PICC line removed - ID recs - D/W heme/onc plan to transition to orals --levaquin over the weekend if okay with ID, will need PICC replaced prior to discharge. - Vanco, cefepime, diflucan, acyclovir Acute myelogenous leukemia Pancytopenia- chemo induced with neutropenia, Anemia,and Thrombocytopenia -Oncology recommendations -Completed induction chemotherapy this admission - Prior total of 8 units pRBC, and 3 unit plt - Follow labs closely. 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 Epistaxis, resolved DVT prophylaxis: SCDs due to thrombocytopenia Discussed with: Patient, nursing, mother Anticipated discharge: 03/20/[address]: home A total of 25 minutes was spent on the care of this complex patient more than 50% of the time was spent in counseling and care coordination. Objective - Vital Signs Vital signs: Vital Signs Temp 99.4 F 03/18/22 04:38 Pulse 97 03/18/22 04:38 Resp 20 03/18/22 04:38 BP 124/72 03/18/22 04:38 Pulse Ox 98 03/18/22 04:38 FiO2 Intake & Output 03/17/22 03/18/22 03/18/22 18:59 06:59 18:59 Intake Total 2100 600 Balance 2100 600 Intake: Intake, IV Titration 2100 600 Amount Cefepime 2 gm In Sodium 200 100 Chloride 0.9% 100 ml @ 25 mls/hr IVPB Q8H [facility] Rx#: [id number] Lactated Ringers 1,000 ml 900 @ 75 mls/hr IV .[id number] [facility] Rx#:[id number] Vancomycin 2,000 mg In 1000 500 Sodium Chloride 0.9% 500 ml 500 ml @ 167 mls/hr IVPB Q8H [facility] Rx#: [id number] Other: Voiding Method Toilet Toilet - Labs CBC & Chem 7: 03/18/22 07:43 03/18/22 07:43 Labs: Abnormal Lab Results - Last 24 Hours (Table) 03/18/22 03/18/22 03/18/22 Range/Units 07:43 07:43 07:47 WBC 0.8 L* (3.8-10.6) k/uL RBC 2.29 L (4.30-5.90) m/uL Hgb 6.8 L* (13.0-17.5) gm/dL Hct 19.5 L* (39.0-53.0) % Plt Count 19 L* (150-450) k/uL C-Reactive Protein 13.6 H (<1.0) mg/dL Crossmatch See Detail Microbiology - Last 24 Hours (Table) 03/14/22 06:12 Blood Culture - Preliminary Blood No Growth after 96 hours 03/13/22 14:24 Blood Culture - Preliminary Blood No Growth after 96 hours 03/12/22 12:50 Blood Culture Gram Stain - Final Blood Blood Culture - Final Staph hominis sub sp. hominis 03/12/22 13:14 Blood Culture Gram Stain - Final Blood Blood Culture - Final Staph hominis sub sp. hominis 03/12/22 10:25 Blood Culture - Preliminary Blood No Growth after 120 hours 03/11/22 10:12 Blood Culture - Final Blood No Growth after 144 hours
--- NOTE | 2022-03-18 13:19 | P.PN ---
Subjective Progress Note Date: 03/18/22 The patient has some generalized weakness and easy fatigability. There was a temperature of 100.9 recorded earlier today, but according to the patient and his mother this was apparently incorrect as repeat temperature immediately was in the 98 range. No obvious bleeding. No significant diarrhea. He continues to have a dry cough off and on. Objective - Vital Signs Vital signs: Vital Signs Temp 98.0 F 03/18/22 12:58 Pulse 103 H 03/18/22 12:58 Resp 20 03/18/22 12:58 BP 127/78 03/18/22 12:58 Pulse Ox 97 03/18/22 12:58 FiO2 Intake & Output 03/17/22 03/18/22 03/18/22 18:59 06:59 18:59 Intake Total 2100 600 Balance 2100 600 Intake: Intake, IV Titration 2100 600 Amount Cefepime 2 gm In Sodium 200 100 Chloride 0.9% 100 ml @ 25 mls/hr IVPB Q8H [facility] Rx#: [id number] Lactated Ringers 1,000 ml 900 @ 75 mls/hr IV .[id number] [facility] Rx#:[id number] Vancomycin 2,000 mg In 1000 500 Sodium Chloride 0.9% 500 ml 500 ml @ 167 mls/hr IVPB Q8H [facility] Rx#: [id number] Other: Voiding Method Toilet Toilet - Constitutional General appearance: Present: no acute distress - EENT Eyes: Present: EOMI ENT: Present: hearing grossly normal, normal oropharynx - Respiratory Respiratory: bilateral: CTA - Cardiovascular Rhythm: regular Heart sounds: normal: S1, S2 - Gastrointestinal General gastrointestinal: Present: normal bowel sounds, soft - Integumentary Integumentary: Present: normal - Neurologic Neurologic: Present: CNII-XII intact - Musculoskeletal Musculoskeletal: Present: generalized weakness, strength equal bilaterally - Psychiatric Psychiatric: Present: A&O x's 3, appropriate affect - Labs CBC & Chem 7: 03/18/22 07:43 03/18/22 07:43 Labs: Abnormal Lab Results - Last 24 Hours (Table) 03/18/22 03/18/22 03/18/22 Range/Units 07:43 07:43 07:43 WBC 0.8 L* (3.8-10.6) k/uL RBC 2.29 L (4.30-5.90) m/uL Hgb 6.8 L* (13.0-17.5) gm/dL Hct 19.5 L* (39.0-53.0) % Plt Count 19 L* (150-450) k/uL C-Reactive Protein 13.6 H (<1.0) mg/dL Procalcitonin 0.14 H (0.02-0.09) ng/mL Crossmatch 03/18/22 Range/Units 07:47 WBC (3.8-10.6) k/uL RBC (4.30-5.90) m/uL Hgb (13.0-17.5) gm/dL Hct (39.0-53.0) % Plt Count (150-450) k/uL C-Reactive Protein (<1.0) mg/dL Procalcitonin (0.02-0.09) ng/mL Crossmatch See Detail Microbiology - Last 24 Hours (Table) 03/12/22 10:25 Blood Culture - Final Blood No Growth after 144 hours 03/14/22 06:12 Blood Culture - Preliminary Blood No Growth after 96 hours 03/13/22 14:24 Blood Culture - Preliminary Blood No Growth after 96 hours 03/12/22 12:50 Blood Culture Gram Stain - Final Blood Blood Culture - Final Staph hominis sub sp. hominis 03/12/22 13:14 Blood Culture Gram Stain - Final Blood Blood Culture - Final Staph hominis sub sp. hominis 03/11/22 10:12 Blood Culture - Final Blood No Growth after 144 hours Assessment and Plan (1) AML (acute myelogenous leukemia) Narrative/Plan: The patient on day #15 of induction. Posttreatment effects within the expected range. Continue monitoring, and supportive care. Current Visit: Yes Status: Acute Priority: High Code(s): C92.00 - ACUTE MYELOBLASTIC LEUKEMIA, NOT HAVING ACHIEVED REMISSION SNOMED Code(s): 39177153 (2) Pancytopenia due to antineoplastic chemotherapy Narrative/Plan: Hemoglobin was 620 due to which 1 unit PRBC were ordered. Platelets are in a safe range, greater than 10,000. No obvious bleeding. Continue to monitor and transfuse to keep hemoglobin greater than 7, and platelets greater than 10,000. Current Visit: Yes Status: Acute Priority: High Code(s): D61.810 - ANTINEOPLASTIC CHEMOTHERAPY INDUCED PANCYTOPENIA; T45.1X5A - ADVERSE EFFECT OF ANTINEOPLASTIC AND IMMUNOSUP DRUGS, INIT SNOMED Code(s): 887041117913607 (3) Neutropenic fever Narrative/Plan: The patient did have a temperature of 100.9 which apparently was incorrect according to him and his mother. Case was discussed in detail with ID, as well as the admitting service. At this time the plan is to continue him on IV antibiotics today. Repeat cultures have been negative. If the patient remains afebrile there'll be consideration for changing to oral regimen possibly tomorrow. In that situation will also possibility placing a new PICC line on 03/20/22. It was also discussed that if the patient is stable and afebrile, but needs vancomycin he could potentially be discharged on broad-spectrum oral antibiotics with vancomycin as an outpatient. This plans will be finalized depending on his clinical course, over the next couple of days. Current Visit: Yes Status: Acute Priority: High Code(s): D70.9 - NEUTROPENIA, UNSPECIFIED; R50.81 - FEVER PRESENTING WITH CONDITIONS CLASSIFIED ELSEWHERE SNOMED Code(s): 284640202
[2022-03-18] MEDS: HYDROcodone/APAP 5-325MG 1 EACH TAB PO PRN (13:33)
--- NOTE | 2022-03-18 14:16 | P.PN ---
Subjective Progress Note Date: 03/18/22 Principal diagnosis: Febrile neutropenia Patient is a 26-year-old male with the acute myelogenous leukemia admitted to the hospital for induction of chemotherapy patient did have right upper extremity PICC line for chemotherapy developing a fever. On today's evaluation that is 03/18/2022, patient did have a low-grade fever 100.9 last time however is afebrile this morning, patient denies any chest pain or shortness of breath, the patient cough has decreased in intensity, patient denies having any nausea no vomiting no, and no diarrhea Objective - Vital Signs Vital signs: Vital Signs Temp 99.4 F 03/18/22 04:38 Pulse 97 03/18/22 04:38 Resp 20 03/18/22 04:38 BP 124/72 03/18/22 04:38 Pulse Ox 98 03/18/22 04:38 FiO2 Intake & Output 03/17/22 03/18/22 03/18/22 18:59 06:59 18:59 Intake Total 2100 600 Balance 2100 600 Intake: Intake, IV Titration 2100 600 Amount Cefepime 2 gm In Sodium 200 100 Chloride 0.9% 100 ml @ 25 mls/hr IVPB Q8H [facility] Rx#: [id number] Lactated Ringers 1,000 ml 900 @ 75 mls/hr IV .[id number] [facility] Rx#:[id number] Vancomycin 2,000 mg In 1000 500 Sodium Chloride 0.9% 500 ml 500 ml @ 167 mls/hr IVPB Q8H [facility] Rx#: [id number] Other: Voiding Method Toilet Toilet - Exam GENERAL DESCRIPTION: A middle-age male lying in bed in no distress RESPIRATORY SYSTEM: Unlabored breathing , decreased breath sounds at bases HEART: S1 S2 regular rate and rhythm , ABDOMEN: Soft , no tenderness EXTREMITIES: No edema feet - Labs CBC & Chem 7: 03/18/22 07:43 03/18/22 07:43 Labs: Abnormal Lab Results - Last 24 Hours (Table) 03/18/22 03/18/22 03/18/22 Range/Units 07:43 07:43 07:43 WBC 0.8 L* (3.8-10.6) k/uL RBC 2.29 L (4.30-5.90) m/uL Hgb 6.8 L* (13.0-17.5) gm/dL Hct 19.5 L* (39.0-53.0) % Plt Count 19 L* (150-450) k/uL C-Reactive Protein 13.6 H (<1.0) mg/dL Procalcitonin 0.14 H (0.02-0.09) ng/mL Crossmatch 03/18/22 Range/Units 07:47 WBC (3.8-10.6) k/uL RBC (4.30-5.90) m/uL Hgb (13.0-17.5) gm/dL Hct (39.0-53.0) % Plt Count (150-450) k/uL C-Reactive Protein (<1.0) mg/dL Procalcitonin (0.02-0.09) ng/mL Crossmatch See Detail Microbiology - Last 24 Hours (Table) 03/14/22 06:12 Blood Culture - Preliminary Blood No Growth after 96 hours 03/13/22 14:24 Blood Culture - Preliminary Blood No Growth after 96 hours 03/12/22 12:50 Blood Culture Gram Stain - Final Blood Blood Culture - Final Staph hominis sub sp. hominis 03/12/22 13:14 Blood Culture Gram Stain - Final Blood Blood Culture - Final Staph hominis sub sp. hominis 03/12/22 10:25 Blood Culture - Preliminary Blood No Growth after 120 hours 03/11/22 10:12 Blood Culture - Final Blood No Growth after 144 hours Assessment and Plan (1) Neutropenic fever Current Visit: Yes Status: Acute Priority: High Code(s): D70.9 - NEUTROPENIA, UNSPECIFIED; R50.81 - FEVER PRESENTING WITH CONDITIONS CLASSIFIED ELSEWHERE SNOMED Code(s): 314227097 Plan: 1patient with a febrile neutropenia in this patient with acute myelogenous leukemia admitted to the hospital for induction of chemotherapy and is day 10 of induction therapy patient did have a right upper arm PICC line which was placed this admission on his symptoms of nosebleed but no other obvious signs and symptoms of infection and the work-up has been negative so far with a negative chest x-ray negative UA abdominal soft frontal examination CT of the brain with left maxillary sinusitis however CT of the sinuses did not show any evidence of sinusitis. 2patient blood cultures came back positive with gram-positive cocci which has b een finalized as coagulase negative staph, keeping in mind his persistent fever patient PICC line was discontinued, the patient also have CT of the chest which did not show any pneumonia 3-patient did have a low-grade fever last night, cultures have been repeated continue with the cefepime and Vanco at this point, if culture remains to be negative patient will be able to get a PICC line for continuation of his chemo, I discussed with the oncology Time with Patient: Less than 30
[2022-03-18] MEDS: SENNOSIDES 8.6 MG TAB PO SCH (20:51)
[2022-03-18] MEDS: OLANZapine 5 MG TAB PO SCH (20:51)
[2022-03-18] MEDS: ALPRAZolam 0.25 MG TAB PO PRN (20:51)
[2022-03-19] MEDS: SALT AND SODA MOUTHWASH 1,000 ML PO SCH ×5 (00:54→21:26)
[2022-03-19] MEDS: CEFEPIME 2 GM in SODIUM CHLORIDE 0.9% 100 ML IVPB SCH ×3 (03:03→17:22)
[2022-03-19] MEDS: ACETAMINOPHEN TAB 325 MG TAB PO PRN ×3 (05:19→19:50)
[2022-03-19] MEDS: LACTATED RINGERS 1,000 ML IV SCH ×2 (05:56→12:09)
[2022-03-19] MEDS: polyethylene glycoL 3350 17 GM POWD.PACK PO SCH (08:18)
[2022-03-19] MEDS: CHOLECALCIFEROL 25 MCG (1000 IU) TABLET PO SCH (08:19)
[2022-03-19] MEDS: ACYCLOVIR 200 MG CAP PO SCH ×2 (08:19→21:25)
[2022-03-19] MEDS: CYANOCOBALAMIN 500 MCG TAB PO SCH (08:19)
[2022-03-19] MEDS: FOLIC ACID 1 MG TAB PO SCH (08:19)
[2022-03-19] MEDS: allopurinoL 300 MG TAB PO SCH (08:19)
[2022-03-19] MEDS: FLUCONAZOLE 100 MG TAB PO SCH (08:19)
--- NOTE | 2022-03-19 08:51 | P.PN ---
Subjective Progress Note Date: 03/19/22 Patient spiked fevers up to 101 again overnight, no new symptoms. Labs today are pending. Patient has PICC line removed, is currently on vancomycin, cefepime. No reports of diarrhea. Will receive a new PICC line tomorrow, then consideration of IV antibiotic course versus home with oral antibiotics, prefer the former Gen: awake, alert HEENT: normocephalic, atraumatic, good hearing acuity, moist mucous membranes Resp: good air exchange, breathing comfortably with no accessory muscle use CVS: good distal perfusion x 4, GI: soft, NTTP, ND : no SPT, no CVAT, watkins catheter not present MSK: no pitting edema, no clubbing Neuro: non-focal, moving all extremities Psych: cooperative, euthymic mood Persistent Neutropenic fevers Staph hominis bacteremia - PICC line removed - ID recs - D/W heme/onc plan to transition to orals --levaquin over the weekend if okay with ID, will need PICC replaced prior to discharge. - Vanco, cefepime, diflucan, acyclovir Acute myelogenous leukemia Pancytopenia- chemo induced with neutropenia, Anemia,and Thrombocytopenia -Oncology recommendations -Completed induction chemotherapy this admission - Prior total of 8 units pRBC, and 3 unit plt - Follow labs closely. 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 Epistaxis, resolved DVT prophylaxis: SCDs due to thrombocytopenia Discussed with: Patient, nursing, mother Anticipated discharge: 03/20/[address]: home A total of 25 minutes was spent on the care of this complex patient more than 50% of the time was spent in counseling and care coordination. Objective - Vital Signs Vital signs: Vital Signs Temp 98.9 F 03/19/22 05:55 Pulse 107 H 03/19/22 05:00 Resp 20 03/19/22 05:00 BP 121/76 03/19/22 05:00 Pulse Ox 97 03/19/22 05:00 FiO2 Intake & Output 03/18/22 03/19/22 03/19/22 18:59 06:59 18:59 Intake Total 1210 900 Balance 1210 900 Intake: Intake, IV Titration 900 900 Amount Lactated Ringers 1,000 ml 900 900 @ 75 mls/hr IV .[id number] [facility] Rx#:[id number] Blood Product 310 Rc Irr As1 Unit 310 [id number] Other: Voiding Method Toilet Toilet - Labs CBC & Chem 7: 03/18/22 07:43 03/18/22 07:43 Labs: Abnormal Lab Results - Last 24 Hours (Table) 03/18/22 03/18/22 03/18/22 Range/Units 07:43 07:43 07:47 C-Reactive Protein 13.6 H (<1.0) mg/dL Procalcitonin 0.14 H (0.02-0.09) ng/mL Crossmatch See Detail Microbiology - Last 24 Hours (Table) 03/13/22 14:24 Blood Culture - Preliminary Blood No Growth after 120 hours 03/12/22 10:25 Blood Culture - Final Blood No Growth after 144 hours 03/14/22 06:12 Blood Culture - Preliminary Blood No Growth after 96 hours
[2022-03-19] MEDS ORDERED: VANCOMYCIN TROUGH DUE 1 EACH MISC MISCELLANE ONE (09:00)
[2022-03-19 12:08] LABS: ALT 22 U/L (4-49); AST 14 U/L (17-59); African American GFR (CKD) >90 (>60 ml/min/1.73 sqM); Albumin 3.1 g/dL (3.5-5.0); Albumin/Globulin Ratio 1.3; Alkaline Phosphatase 53 U/L (38-126); Anion Gap 8 mmol/L; Blood Urea Nitrogen 11 mg/dL (9-20); Calcium 8.1 mg/dL (8.4-10.2); Carbon Dioxide 24 mmol/L (22-30); Chloride 103 mmol/L (98-107); Globulin 2.4 g/dL; Glucose 93 mg/dL (74-99); Magnesium 1.7 mg/dL (1.6-2.3); Non-African American GFR(CKD) >90 (>60 ml/min/1.73 sqM); Potassium 3.9 mmol/L (3.5-5.1); Sodium 135 mmol/L (137-145); Total Bilirubin 0.8 mg/dL (0.2-1.3); Total Protein 5.5 g/dL (6.3-8.2)
[2022-03-19 12:15] LABS: HCT 20.9 % (39.0-53.0); HGB 7.3 gm/dL (13.0-17.5); MCH 29.4 pg (25.0-35.0); MCV 84.1 fL (80.0-100.0); Mean Platelet Volume 8.7; RBC 2.49 m/uL (4.30-5.90); RDW 13.9 % (11.5-15.5)
[2022-03-19 12:19] LABS: Platelet Count 11 k/uL (150-450); WBC 0.8 k/uL (3.8-10.6)
[2022-03-19 13:10] LABS: Anisocytosis (M) Present; Poikilocytosis (M) Present
[2022-03-19] MEDS: OLANZapine 5 MG TAB PO SCH (21:25)
[2022-03-19] MEDS: ALPRAZolam 0.25 MG TAB PO PRN (21:25)
[2022-03-19] MEDS: SENNOSIDES 8.6 MG TAB PO SCH (21:28)
--- NOTE | 2022-03-19 22:57 | P.PN ---
Subjective Progress Note Date: 03/19/22 Principal diagnosis: Febrile neutropenia Patient is a 26-year-old male with the acute myelogenous leukemia admitted to the hospital for induction of chemotherapy patient did have right upper extremity PICC line for chemotherapy developing a fever. On today's evaluation that is 03/19/2022, patient did spike another fever 101 degrees Fahrenheit earlier this morning, patient denies any chest pain or shortness of breath, the patient did have minimal dry cough , patient denies having any nausea no vomiting no, and no diarrhea, the patient did have some bruising or rash to the left groin area but no worsening Objective - Vital Signs Vital signs: Vital Signs Temp 98.9 F 03/19/22 05:55 Pulse 107 H 03/19/22 05:00 Resp 20 03/19/22 05:00 BP 121/76 03/19/22 05:00 Pulse Ox 97 03/19/22 05:00 FiO2 Intake & Output 03/18/22 03/19/22 03/19/22 18:59 06:59 18:59 Intake Total 1210 900 Balance 1210 900 Intake: Intake, IV Titration 900 900 Amount Lactated Ringers 1,000 ml 900 900 @ 75 mls/hr IV .[id number] [facility] Rx#:[id number] Blood Product 310 Rc Irr As1 Unit 310 [id number] Other: Voiding Method Toilet Toilet - Exam GENERAL DESCRIPTION: A middle-age male lying in bed in no distress RESPIRATORY SYSTEM: Unlabored breathing , decreased breath sounds at bases HEART: S1 S2 regular rate and rhythm , ABDOMEN: Soft , no tenderness , left groin with mostly bruising no vesicles EXTREMITIES: No edema feet - Labs CBC & Chem 7: 03/19/22 11:18 03/19/22 11:18 Labs: Abnormal Lab Results - Last 24 Hours (Table) 03/18/22 03/18/22 Range/Units 07:43 07:47 Procalcitonin 0.14 H (0.02-0.09) ng/mL Crossmatch See Detail Microbiology - Last 24 Hours (Table) 03/14/22 06:12 Blood Culture - Preliminary Blood No Growth after 120 hours 03/13/22 14:24 Blood Culture - Preliminary Blood No Growth after 120 hours 03/12/22 10:25 Blood Culture - Final Blood No Growth after 144 hours Assessment and Plan (1) Neutropenic fever Current Visit: Yes Status: Acute Priority: High Code(s): D70.9 - NEUTR OPENIA, UNSPECIFIED; R50.81 - FEVER PRESENTING WITH CONDITIONS CLASSIFIED ELSEWHERE SNOMED Code(s): 335198553 Plan: 1patient with a febrile neutropenia in this patient with acute myelogenous leukemia admitted to the hospital for induction of chemotherapy and is day 10 of induction therapy patient did have a right upper arm PICC line which was placed this admission on his symptoms of nosebleed but no other obvious signs and symptoms of infection and the work-up has been negative so far with a negative chest x-ray negative UA abdominal soft frontal examination CT of the brain with left maxillary sinusitis however CT of the sinuses did not show any evidence of sinusitis. 2patient blood cultures came back positive with gram-positive cocci which has been finalized as coagulase negative staph, keeping in mind his persistent fever patient PICC line was discontinued, the patient also have CT of the chest which did not show any pneumonia 3-patient staph epi was sensitive to cefazolin and the patient was continued on cefepime and vancomycin was discontinued 4-in view of the new fever blood culture had been repeated and we'll recheck his inflammatory marker 5-rash to the Levaquin is mostly a bruise which are not behaving as shingles will continue monitor closely Time with Patient: Less than 30
--- NOTE | 2022-03-20 00:02 | P.PN ---
Subjective Progress Note Date: 03/19/22 the patient denies any new complaints, other than some worsening of the skin rash in the left upper thigh. He did have a fever of 101+ earlier today, but repeat after a few minutes was 1 Degree lower. no rigors/chills/nausea/vomiting Objective - Vital Signs Vital signs: Vital Signs Temp 100.3 F H 03/19/22 21:00 Pulse 101 H 03/19/22 21:00 Resp 16 03/19/22 21:00 BP 129/83 03/19/22 21:00 Pulse Ox 99 03/19/22 21:00 FiO2 Intake & Output 03/19/22 03/19/22 03/20/22 06:59 18:59 06:59 Intake Total 900 900 Balance 900 900 Intake: Intake, IV Titration 900 900 Amount Lactated Ringers 1,000 ml 900 900 @ 75 mls/hr IV .[id number] [facility] Rx#:[id number] Other: Voiding Method Toilet Toilet Toilet - Constitutional General appearance: Present: no acute distress - EENT Eyes: Present: EOMI ENT: Present: hearing grossly normal, normal oropharynx - Respiratory Respiratory: bilateral: CTA - Cardiovascular Rhythm: regular Heart sounds: normal: S1, S2 - Gastrointestinal General gastrointestinal: Present: normal bowel sounds, soft - Integumentary Integumentary: Present: rash (some increase, and left upper thigh area. The rash appears different from prior petechial rash. Appears to be more consistent with some folliculitis) - Neurologic Neurologic: Present: CNII-XII intact - Musculoskeletal Musculoskeletal: Present: generalized weakness, strength equal bilaterally - Psychiatric Psychiatric: Present: A&O x's 3, appropriate affect - Labs CBC & Chem 7: 03/19/22 11:18 03/19/22 11:18 Labs: Abnormal Lab Results - Last 24 Hours (Table) 03/19/22 03/19/22 Range/Units 11:18 11:18 WBC 0.8 L* (3.8-10.6) k/uL RBC 2.49 L (4.30-5.90) m/uL Hgb 7.3 L (13.0-17.5) gm/dL Hct 20.9 L (39.0-53.0) % Plt Count 11 L* (150-450) k/uL Sodium 135 L (137-145) mmol/L Calcium 8.1 L (8.4-10.2) mg/dL AST 14 L (17-59) U/L Total Protein 5.5 L (6.3-8.2) g/dL Albumin 3.1 L (3.5-5.0) g/dL Microbiology - Last 24 Hours (Table) 03/13/22 14:24 Blood Culture - Final Blood No Growth after 144 hours 03/14/22 06:12 Blood Culture - Preliminary Blood No Growth after 120 hours Assessment and Plan (1) AML (acute myelogenous leukemia) Narrative/Plan: the patient is around a #16 of induction. Other than fever, and expected cytopenias, as well as other. General chemotherapy related effects such as fatigue, tolerance has been reasonable. Continue to monitor with ongoing supportive care Current Visit: Yes Status: Acute Priority: High Code(s): C92.00 - ACUTE MYELOBLASTIC LEUKEMIA, NOT HAVING ACHIEVED REMISSION SNOMED Code(s): 37805157 (2) Pancytopenia due to antineoplastic chemotherapy Narrative/Plan: no transfusion needed today. Transfuse to keep hemoglobin greater than 7, and platelets greater than 10. Current Visit: Yes Status: Acute Priority: High Code(s): D61.810 - ANTINEOPLASTIC CHEMOTHERAPY INDUCED PANCYTOPENIA; T45.1X5A - ADVERSE EFFECT OF ANTINEOPLASTIC AND IMMUNOSUP DRUGS, INIT SNOMED Code(s): 159849219996904 (3) Neutropenic fever Narrative/Plan: the patient has had recurrent fever yesterday, and then again today, though repeat temperature a few minutes later was 1 Degree lower. no other significant associated symptoms. No definite source, so far, though sinusitis is a possibility. continue IV antibiotics. We will defer to ID has to appropriate time for line replacement. Current Visit: Yes Status: Acute Priority: High Code(s): D70.9 - NEUTROPENIA, UNSPECIFIED; R50.81 - FEVER PRESENTING WITH CONDITIONS CLASSIFIED ELSEWHERE SNOMED Code(s): 237146594
[2022-03-20] MEDS: ACETAMINOPHEN TAB 325 MG TAB PO PRN ×5 (00:47→21:22)
[2022-03-20] MEDS: LACTATED RINGERS 1,000 ML IV SCH (00:49)
[2022-03-20] MEDS: SALT AND SODA MOUTHWASH 1,000 ML PO SCH ×5 (00:50→19:24)
[2022-03-20] MEDS: CEFEPIME 2 GM in SODIUM CHLORIDE 0.9% 100 ML IVPB SCH ×2 (01:57→10:45)
[2022-03-20 06:43] LABS: ALT 20 U/L (4-49); AST 14 U/L (17-59); African American GFR (CKD) >90 (>60 ml/min/1.73 sqM); Albumin 3.1 g/dL (3.5-5.0); Albumin/Globulin Ratio 1.2; Alkaline Phosphatase 56 U/L (38-126); Anion Gap 6 mmol/L; Blood Urea Nitrogen 11 mg/dL (9-20); Calcium 8.3 mg/dL (8.4-10.2); Carbon Dioxide 23 mmol/L (22-30); Chloride 105 mmol/L (98-107); Globulin 2.6 g/dL; Glucose 99 mg/dL (74-99); Non-African American GFR(CKD) >90 (>60 ml/min/1.73 sqM); Potassium 3.8 mmol/L (3.5-5.1); Sodium 134 mmol/L (137-145); Total Bilirubin 0.8 mg/dL (0.2-1.3); Total Protein 5.7 g/dL (6.3-8.2)
[2022-03-20] MEDS: polyethylene glycoL 3350 17 GM POWD.PACK PO SCH (07:46)
[2022-03-20] MEDS: ACYCLOVIR 200 MG CAP PO SCH ×2 (07:46→21:17)
[2022-03-20] MEDS: CHOLECALCIFEROL 25 MCG (1000 IU) TABLET PO SCH (07:47)
[2022-03-20] MEDS: FOLIC ACID 1 MG TAB PO SCH (07:47)
[2022-03-20] MEDS: CYANOCOBALAMIN 500 MCG TAB PO SCH (07:47)
[2022-03-20] MEDS: allopurinoL 300 MG TAB PO SCH (07:47)
[2022-03-20] MEDS: FLUCONAZOLE 100 MG TAB PO SCH (07:47)
[2022-03-20] MEDS ORDERED: PETROLATUM, WHITE OINT 50 GM TUBE TOPICAL PRN (08:39)
--- NOTE | 2022-03-20 08:47 | P.PN ---
Subjective Progress Note Date: 03/20/22 Principal diagnosis: Confirmed AML Persistent fevers, Redraw cultures today (All BC, Viral, Chest xray and Urine). Systemic rash started in groin now throughout and itchy. Clotriamazole and betamethasone. Fever respiked 102.7 T max since 03/19/22 COVID test returned positive, Dr. Singer aware Rash appears to be mix of fungal, possible IV abx and petechaie from scrating. Objective - Vital Signs Vital signs: Vital Signs Temp 99.0 F 03/20/22 06:27 Pulse 109 H 03/20/22 05:00 Resp 16 03/20/22 05:00 BP 127/82 03/20/22 05:00 Pulse Ox 99 03/20/22 05:00 FiO2 Intake & Output 03/19/22 03/20/22 03/20/22 18:59 06:59 18:59 Intake Total 900 700 Balance 900 700 Intake: Intake, IV Titration 900 700 Amount Cefepime 2 gm In Sodium 100 Chloride 0.9% 100 ml @ 25 mls/hr IVPB Q8H [facility] Rx#: [id number] Lactated Ringers 1,000 ml 900 600 @ 75 mls/hr IV .[id number] [facility] Rx#:[id number] Other: Voiding Method Toilet Toilet - Exam - EENT Eyes: EOMI ENT: NA/AT - Respiratory Respiratory: bilateral: CTA - Cardiovascular Rhythm: regular - Gastrointestinal General gastrointestinal: soft - Integumentary Integumentary: pale, Rash papular - Neurologic Neurologic: CNII-XII intact - Musculoskeletal Musculoskeletal: generalized weakness, strength equal bilaterally - Psychiatric Psychiatric: A&O x's 3, appropriate affect, intact judgment & insight - Labs CBC & Chem 7: 03/20/22 05:55 03/20/22 05:55 Labs: Abnormal Lab Results - Last 24 Hours (Table) 03/19/22 03/19/22 03/20/22 Range/Units 11:18 11:18 05:55 WBC 0.8 L* (3.8-10.6) k/uL RBC 2.49 L (4.30-5.90) m/uL Hgb 7.3 L (13.0-17.5) gm/dL Hct 20.9 L (39.0-53.0) % Plt Count 11 L* (150-450) k/uL Sodium 135 L 134 L (137-145) mmol/L Calcium 8.1 L 8.3 L (8.4-10.2) mg/dL AST 14 L 14 L (17-59) U/L C-Reactive Protein 11.0 H (<1.0) mg/dL Total Protein 5.5 L 5.7 L (6.3-8.2) g/dL Albumin 3.1 L 3.1 L (3.5-5.0) g/dL Microbiology - Last 24 Hours (Table) 03/13/22 14:24 Blood Culture - Final Blood No Growth after 144 hours 03/14/22 06:12 Blood Culture - Preliminary Blood No Growth after 120 hours Assessment and Plan (1) AML (acute myelogenous leukemia) Narrative/Plan: New Diagnosis Status Post Induction with 7 plus 3 Antiemetics Daily labs Close monitoring Cytogenics with one favorable, one not favorable. Will check Bone Marrow biopsy for induction response and if remission arrange for downtown transplant appointment., Current Visit: Yes Status: Acute Priority: High Code(s): C92.00 - ACUTE MYELOBLASTIC LEUKEMIA, NOT HAVING ACHIEVED REMISSION SNOMED Code(s): 75282994 (2) Leukocytosis Narrative/Plan: Increased Monocytes, Myelocytes,Lymphocytes, increased Blasts on peripheral smear, Current Visit: Yes Status: Acute Priority: High Code(s): D72.829 - ELEVATED WHITE BLOOD CELL COUNT, UNSPECIFIED SNOMED Code(s): 027393163 (3) Thrombocytopenia Narrative/Plan: NO ASA, AC therapy, NSAIDS. Transfusions with Irradiated blood products only. >10K Current Visit: Yes Status: Acute Code(s): D69.6 - THROMBOCYTOPENIA, UNSPECIFIED SNOMED Code(s): 621693654 (4) Coagulopathy Current Visit: Yes Status: Acute Code(s): D68.9 - COAGULATION DEFECT, UNSPECIFIED SNOMED Code(s): 16176723 (5) Neutropenic fever Narrative/Plan: Recurrent overnight with t max 102.7 Recultures Current Visit: Yes Status: Acute Priority: High Code(s): D70.9 - NEUTROPENIA, UNSPECIFIED; R50.81 - FEVER PRESENTING WITH CONDITIONS CLASSIFIED ELSEWHERE SNOMED Code(s): 575064291 (6) Pancytopenia due to antineoplastic chemotherapy Current Visit: Yes Status: Acute Priority: High Code(s): D61.810 - ANTINEOPLASTIC CHEMOTHERAPY INDUCED PANCYTOPENIA; T45.1X5A - ADVERSE EFFECT OF ANTINEOPLASTIC AND IMMUNOSUP DRUGS, INIT SNOMED Code(s): 062582587367173 (7) COVID-19 Current Visit: Yes Status: Acute Code(s): U07.1 - COVID-19 SNOMED Code(s): 040251311 Plan: Assessment and Plan (1) AML (acute myelogenous leukemia) Current Visit: Yes Status: Acute Priority: High Code(s): C92.00 - ACUTE MYELOBLASTIC LEUKEMIA, NOT HAVING ACHIEVED REMISSION SNOMED Code(s): 37404972 (2) Neutropenic fever Current Visit: Yes Status: Acute Priority: High Code(s): D70.9 - NEUTROPENIA, UNSPECIFIED; R50.81 - FEVER PRESENTING WITH CONDITIONS CLASSIFIED ELSEWHERE SNOMED Code(s): 521934284 (3) Pancytopenia due to antineoplastic chemotherapy Current Visit: Yes Status: Acute Priority: High Code(s): D61.810 - ANTINEOPLASTIC CHEMOTHERAPY INDUCED PANCYTOPENIA; T45.1X5A - ADVERSE EFFECT OF ANTINEOPLASTIC AND IMMUNOSUP DRUGS, INIT SNOMED Code(s): 042288170715368 Plan: S/P 7+3 induction chemo for newly diagnosed AML, completed 03/08 ID following. Empiric abx, antiviral and antifungal. Positive blood culture for coagulase negative staph. PICC line removed, pending cultures. No fever since yesterday Conservative transfusions for anemia and thrombocytopenia. Transfuse for Hgb <7 and plt <10K unless symptomatic. Irradiated blood products only. No GCSF as pt is not a confirmed remission Daily labs Cont allopurinol Supportive medications [place] fluids Activity as tolerated, out of bed for meals Reviewed cytogenetics with pt and mother-one favorable mutation and 1 mutation not favorable but not a serious unfavorable mutation. Plan is for repeat BM Bx and asp as soon as CBC indicates recovery to assess for remission status. Referral to BMT for evaluation and recommendations. COVID positive - Dr singer following Rash - Clotrimazole/Bethathasone and Benadryl given Attest: I have completed the full history and physical and agree with above dictation, dictated as a ascribe
--- NOTE | 2022-03-20 09:18 | XR ---
EXAMINATION TYPE: XR chest 2V DATE OF EXAM: 03/20/2022 COMPARISON: NONE HISTORY: Fever TECHNIQUE: Frontal and lateral views of the chest are obtained. FINDINGS: There is no focal air space opacity, pleural effusion, or pneumothorax seen. The cardiac silhouette size is within normal limits. The osseous structures are intact. IMPRESSION: No acute cardiopulmonary process.
[2022-03-20 10:12] LABS: INR 1.2 (<1.2); Partial Thromboplastin Time 29.2 sec (22.0-30.0); Prothrombin Time 12.4 sec (9.0-12.0)
[2022-03-20] MEDS ORDERED: SODIUM CHLORIDE 0.9% 500 ML 500 ML IV SCH (10:15)
--- NOTE | 2022-03-20 10:23 | P.PN ---
Subjective Progress Note Date: 03/20/22 Patient again spiking fevers up to 102. Has had persistent fevers since 03/12. New rash on b/l torso and left upper extremity in medial aspect, macular in nature. Not itchy, not painful. Gen: awake, alert HEENT: normocephalic, atraumatic, good hearing acuity, moist mucous membranes Resp: good air exchange, breathing comfortably with no accessory muscle use CVS: good distal perfusion x 4, GI: soft, NTTP, ND : no SPT, no CVAT, watkins catheter not present MSK: no pitting edema, no clubbing Neuro: non-focal, moving all extremities Psych: cooperative, euthymic mood Persistent Neutropenic fevers Staph hominis bacteremia Macular Rash - PICC line removed - ID recs - D/W heme/onc plan to transition to orals --levaquin over the weekend if okay with ID, will need PICC replaced prior to discharge. - Vanco, cefepime, diflucan, acyclovir - Repeat viral PCRs - send out 1, 3, [id number] Acute myelogenous leukemia Pancytopenia- chemo induced with neutropenia, Anemia,and Thrombocytopenia -Oncology recommendations -Completed induction chemotherapy this admission - Prior total of 8 units pRBC, and 3 unit plt - Follow labs closely. 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 Epistaxis, resolved DVT prophylaxis: SCDs due to thrombocytopenia Discussed with: Patient, nursing, mother Anticipated discharge: 03/20/[address]: home A total of 25 minutes was spent on the care of this complex patient more than 50% of the time was spent in counseling and care coordination. Objective - Vital Signs Vital signs: Vital Signs Temp 99.0 F 03/20/22 06:27 Pulse 109 H 03/20/22 05:00 Resp 16 03/20/22 05:00 BP 127/82 03/20/22 05:00 Pulse Ox 99 03/20/22 05:00 FiO2 Intake & Output 03/19/22 03/20/22 03/20/22 18:59 06:59 18:59 Intake Total 900 700 Balance 900 700 Intake: Intake, IV Titration 900 700 Amount Cefepime 2 gm In Sodium 100 Chloride 0.9% 100 ml @ 25 mls/hr IVPB Q8H [facility] Rx#: [id number] Lactated Ringers 1,000 ml 900 600 @ 75 mls/hr IV .[id number] [facility] Rx#:[id number] Other: Voiding Method Toilet Toilet - Labs CBC & Chem 7: 03/19/22 11:18 03/20/22 05:55 Labs: Abnormal Lab Results - Last 24 Hours (Table) 03/19/22 03/19/22 03/20/22 Range/Units 11:18 11:18 05:55 WBC 0.8 L* (3.8-10.6) k/uL RBC 2.49 L (4.30-5.90) m/uL Hgb 7.3 L (13.0-17.5) gm/dL Hct 20.9 L (39.0-53.0) % Plt Count 11 L* (150-450) k/uL PT (9.0-12.0) sec INR (<1.2) Fibrinogen (200-500) mg/dL Sodium 135 L 134 L (137-145) mmol/L Calcium 8.1 L 8.3 L (8.4-10.2) mg/dL AST 14 L 14 L (17-59) U/L C-Reactive Protein 11.0 H (<1.0) mg/dL Total Protein 5.5 L 5.7 L (6.3-8.2) g/dL Albumin 3.1 L 3.1 L (3.5-5.0) g/dL 03/20/22 Range/Units 09:28 WBC (3.8-10.6) k/uL RBC (4.30-5.90) m/uL Hgb (13.0-17.5) gm/dL Hct (39.0-53.0) % Plt Count (150-450) k/uL PT 12.4 H (9.0-12.0) sec INR 1.2 H (<1.2) Fibrinogen 634 H (200-500) mg/dL Sodium (137-145) mmol/L Calcium (8.4-10.2) mg/dL AST (17-59) U/L C-Reactive Protein (<1.0) mg/dL Total Protein (6.3-8.2) g/dL Albumin (3.5-5.0) g/dL Microbiology - Last 24 Hours (Table) 03/14/22 06:12 Blood Culture - Final Blood No Growth after 144 hours 03/13/22 14:24 Blood Culture - Final Blood No Growth after 144 hours
[2022-03-20] MEDS: CLOTRIMAZOLE/BETAMETH 1-0.05% CREAM 45 GM TUBE TOPICAL SCH ×2 (10:43→21:18)
[2022-03-20 10:54] LABS: Magnesium 1.7 mg/dL (1.6-2.3); Phosphorus 3.6 mg/dL (2.5-4.5); Uric Acid 1.9 mg/dL (3.5-8.5)
[2022-03-20 11:00] LABS: NRBC Per 100 WBC 0 /100 WBCS (0.0-0.0)
[2022-03-20 11:01] LABS: Basophils # (A) 0 X 10*3/uL (0.00-0.10); Basophils % (A) 0 %; Eosinophils # (A) 0 X 10*3/uL (0.04-0.35); Eosinophils % (A) 0 %; HCT 21.7 % (39.6-50.0); HGB 7.4 g/dL (13.0-17.0); Immature Grans, Automated 0 %; Immature Platelet Fraction 3.7 % (1.1-6.1); Lymphocytes # (A) 0.73 X 10*3/uL (0.90-5.00); Lymphocytes % (A) 97.3 %; MCH 28.8 pg (27.0-32.0); MCHC 34.1 g/dL (32.0-37.0); MCV 84.4 fL (80.0-97.0); Mean Platelet Volume 11.4 fL (9.5-12.2); Monocytes # (A) 0.02 X 10*3/uL (0.20-1.00); Monocytes % (A) 2.7 %; Neutrophils % (A) 0 %; RBC 2.57 X 10*6/uL (4.40-5.60); RBC Morphology NORMAL
[2022-03-20] MEDS ORDERED: ANIDULAFUNGIN 200 MG in SODIUM CHLORIDE 0.9% 200 ML IVPB ONE (12:00)
[2022-03-20] MEDS ORDERED: VANCOMYCIN IV PER PHARMACY 1 EACH MISC MISCELLANE PRN (12:37)
[2022-03-20 12:48] LABS: Appearance,Urine Cloudy (Clear); Bilirubin,Urine Negative (Negative); Blood,Urine Small (Negative); Calcium Oxalate Crystals,Urine Few /hpf; Color,Urine Yellow; Glucose,Urine (UA) Negative (Negative); Ketones,Urine 1+ (Negative); Leukocyte Esterase,Urine Negative (Negative); Mucus,Urine Many /hpf; Nitrite,Urine Negative (Negative); Protein,Urine 1+ (Negative); RBC,Urine 3 /hpf (0-5); Specific Gravity,Urine 1.029 (1.001-1.035); WBC,Urine 3 /hpf (0-5)
[2022-03-20] MEDS ORDERED: VANCOMYCIN 2,250 MG in SODIUM CHLORIDE 0.9% 500 ML 500 ML IVPB ONE (13:15)
[2022-03-20 14:05] LABS: Neutrophils # (A) 0 X 10*3/uL (1.80-7.70); Platelet Count 13 X 10*3/uL (140-440); WBC 0.75 X 10*3/uL (4.50-10.00)
[2022-03-20] MEDS: diphenhydrAMINE 25 MG CAP PO PRN (14:31)
[2022-03-20] MEDS: LORATADINE 10 MG TAB PO SCH (14:31)
[2022-03-20] MEDS ORDERED: methylPREDNISolone SOD SUCCI 125 MG/2 ML VIAL IV SCH (19:00)
[2022-03-20] MEDS: SODIUM CHLORIDE 0.9% 1,000 ML IV SCH (19:23)
[2022-03-20] MEDS: VANCOMYCIN 2,000 MG in SODIUM CHLORIDE 0.9% 500 ML 500 ML IVPB SCH (21:17)
[2022-03-20] MEDS: ALPRAZolam 0.25 MG TAB PO PRN (21:17)
[2022-03-20] MEDS: SENNOSIDES 8.6 MG TAB PO SCH (21:17)
[2022-03-20] MEDS: OLANZapine 5 MG TAB PO SCH (21:41)
[2022-03-20] MEDS: BENZONATATE 100 MG CAP PO PRN (21:41)
[2022-03-20] MEDS ORDERED: IBUPROFEN 600 MG TAB PO STA (21:54)
[2022-03-20] MEDS: guaiFENesin SYRUP 100MG/5ML 200 MG/10 ML CUP PO PRN (22:23)
--- NOTE | 2022-03-20 22:36 | P.PN ---
Subjective Progress Note Date: 03/20/22 Principal diagnosis: Febrile neutropenia Patient is a 26-year-old male with the acute myelogenous leukemia admitted to the hospital for induction of chemotherapy patient did have right upper extremity PICC line for chemotherapy developing a fever. On today's evaluation that is 03/20/2022, patient did spike another fever 102 degrees Fahrenheit this morning, patient did mention he did have some chills however the patient denies any chest pain or shortness of breath, the patient did have minimal dry cough , patient denies having any nausea no vomiting and no diarrhea, the patient did have some bruising or rash to the left groin area and has also developed rash to the trunk and is complaining of itching Objective - Vital Signs Vital signs: Vital Signs Temp 99.0 F 03/20/22 06:27 Pulse 109 H 03/20/22 05:00 Resp 16 03/20/22 05:00 BP 127/82 03/20/22 05:00 Pulse Ox 99 03/20/22 05:00 FiO2 Intake & Output 03/19/22 03/20/22 03/20/22 18:59 06:59 18:59 Intake Total 900 700 Balance 900 700 Intake: Intake, IV Titration 900 700 Amount Cefepime 2 gm In Sodium 100 Chloride 0.9% 100 ml @ 25 mls/hr IVPB Q8H [facility] Rx#: [id number] Lactated Ringers 1,000 ml 900 600 @ 75 mls/hr IV .[id number] [facility] Rx#:[id number] Other: Voiding Method Toilet Toilet - Exam GENERAL DESCRIPTION: A middle-age male lying in bed in no distress RESPIRATORY SYSTEM: Unlabored breathing , decreased breath sounds at bases HEART: S1 S2 regular rate and rhythm , ABDOMEN: Soft , no tenderness , left groin with mostly bruising no vesicles SKIN: Maculopapular rash to the trunk EXTREMITIES: No edema feet - Labs CBC & Chem 7: 03/24/22 06:24 03/24/22 06:24 Labs: Abnormal Lab Results - Last 24 Hours (Table) 03/19/22 03/19/22 03/20/22 Range/Units 11:18 11:18 05:55 WBC 0.8 L* (3.8-10.6) k/uL RBC 2.49 L (4.30-5.90) m/uL Hgb 7.3 L (13.0-17.5) gm/dL Hct 20.9 L (39.0-53.0) % Plt Count 11 L* (150-450) k/uL Plt Count Comment Neutrophils # (1.80-7.70) X 10*3/uL Lymphocytes # (0.90-5.00) X 10*3/uL Monocytes # (0.20-1.00) X 10*3/uL Eosinophils # (0.04-0.35) X 10*3/uL PT (9.0-12.0) sec INR (<1.2) Fibrinogen (200-500) mg/dL Sodium 135 L 134 L (137-145) mmol/L Uric Acid (3.5-8.5) mg/dL Calcium 8.1 L 8.3 L (8.4-10.2) mg/dL AST 14 L 14 L (17-59) U/L C-Reactive Protein 11.0 H (<1.0) mg/dL Total Protein 5.5 L 5.7 L (6.3-8.2) g/dL Albumin 3.1 L 3.1 L (3.5-5.0) g/dL Procalcitonin (0.02-0.09) ng/mL 03/20/22 03/20/22 03/20/22 Range/Units 05:55 05:55 09:28 WBC 0.75 L* (3.8-10.6) k/uL RBC 2.57 L (4.30-5.90) m/uL Hgb 7.4 L (13.0-17.5) gm/dL Hct 21.7 L (39.0-53.0) % Plt Count 13 L* (150-450) k/uL Plt Count Comment A Neutrophils # 0 L* (1.80-7.70) X 10*3/uL Lymphocytes # 0.73 L (0.90-5.00) X 10*3/uL Monocytes # 0.02 L (0.20-1.00) X 10*3/uL Eosinophils # 0 L (0.04-0.35) X 10*3/uL PT 12.4 H (9.0-12.0) sec INR 1.2 H (<1.2) Fibrinogen 634 H (200-500) mg/dL Sodium (137-145) mmol/L Uric Acid (3.5-8.5) mg/dL Calcium (8.4-10.2) mg/dL AST (17-59) U/L C-Reactive Protein (<1.0) mg/dL Total Protein (6.3-8.2) g/dL Albumin (3.5-5.0) g/dL Procalcitonin 0.19 H (0.02-0.09) ng/mL 03/20/22 Range/Units 09:28 WBC (3.8-10.6) k/uL RBC (4.30-5.90) m/uL Hgb (13.0-17.5) gm/dL Hct (39.0-53.0) % Plt Count (150-450) k/uL Plt Count Comment Neutrophils # (1.80-7.70) X 10*3/uL Lymphocytes # (0.90-5.00) X 10*3/uL Monocytes # (0.20-1.00) X 10*3/uL Eosinophils # (0.04-0.35) X 10*3/uL PT (9.0-12.0) sec INR (<1.2) Fibrinogen (200-500) mg/dL Sodium (137-145) mmol/L Uric Acid 1.9 L (3.5-8.5) mg/dL Calcium (8.4-10.2) mg/dL AST (17-59) U/L C-Reactive Protein (<1.0) mg/dL Total Protein (6.3-8.2) g/dL Albumin (3.5-5.0) g/dL Procalcitonin (0.02-0.09) ng/mL Microbiology - Last 24 Hours (Table) 03/14/22 06:12 Blood Culture - Final Blood No Growth after 144 hours 03/13/22 14:24 Blood Culture - Final Blood No Growth after 144 hours Assessment and Plan (1) Neutropenic fever Current Visit: Yes Status: Acute Priority: High Code(s): D70.9 - NEUTROPENIA, UNSPECIFIED; R50.81 - FEVER PRESENTING WITH CONDITIONS CLASSIFIED ELSEWHERE SNOMED Code(s): 807233649 Plan: 1patient with a febrile neutropenia in this patient with acute myelogenous leukemia admitted to the hospital for induction of chemotherapy and is day 10 of induction therapy patient did have a right upper arm PICC line which was placed this admission on his symptoms of nosebleed but no other obvious signs and symptoms of infection and the work-up has been negative so far with a negative chest x-ray negative UA abdominal soft frontal examination CT of the brain with left maxillary sinusitis however CT of the sinuses did not show any evidence of sinusitis. 2patient blood cultures came back positive with gram-positive cocci which has been finalized as coagulase negative staph, keeping in mind his persistent fever patient PICC line was discontinued, the patient also have CT of the chest which did not show any pneumonia 3-patient staph epi was sensitive to cefazolin and the patient was continued on cefepime however the patient has not developed a generalized rash which could be related to cefepime and likely responsible for fever as well. Will discontinue cefepime start the patient on vancomycin pharmacy to dose and add Azactam for gram-negative coverage, antifungal has been switched over to Eraxis 4patient also have a positive core test mild URI symptoms chest x-ray has been negative for acute infiltrate, and is not hypoxic did review mostly supportive with zinc ascorbic acid did not qualify for dexamethasone or Remdisivir this was discussed with the admitting team Time with Patient: Greater than 30
--- NOTE | 2022-03-20 23:47 | US ---
EXAMINATION TYPE: US venous doppler duplex LE DATE OF EXAM: 03/20/2022 11:11 PM COMPARISON: NONE CLINICAL HISTORY: swelling ,fever r/o DVT. Patient has leukemia and underwent chemotherapy recently. Patient has a fever, r/o DVT SIDE PERFORMED: Bilateral TECHNIQUE: The lower extremity deep venous system is examined utilizing real time linear array sonog nolan with graded compression, doppler sonography and color-flow sonography. VESSELS IMAGED: Common Femoral Vein Deep Femoral Vein Greater Saphenous Vein * Femoral Vein Popliteal Vein Small Saphenous Vein * Proximal Calf Veins (* superficial vessels) Right Leg: Negative for DVT Left Leg: Negative for DVT IMPRESSION: No sign of deep vein thrombosis in both legs.
[2022-03-21] MEDS: diphenhydrAMINE 25 MG CAP PO PRN ×3 (00:28→16:49)
[2022-03-21] MEDS: AZTREONAM 2 GM in SODIUM CHLORIDE 0.9% 100 ML IVPB SCH ×4 (00:30→23:01)
[2022-03-21] MEDS: SALT AND SODA MOUTHWASH 1,000 ML PO SCH ×6 (00:31→23:03)
[2022-03-21] MEDS: VANCOMYCIN 2,000 MG in SODIUM CHLORIDE 0.9% 500 ML 500 ML IVPB SCH ×3 (06:05→21:29)
[2022-03-21 06:27] LABS: MCH 29.9 pg (25.0-35.0); MCHC 35.8 g/dL (31.0-37.0); MCV 83.6 fL (80.0-100.0); Mean Platelet Volume 9.5; Poikilocytosis Slight; RBC 2.35 m/uL (4.30-5.90); RDW 13.8 % (11.5-15.5)
[2022-03-21 07:01] LABS: ALT 23 U/L (4-49); AST 13 U/L (17-59); African American GFR (CKD) >90 (>60 ml/min/1.73 sqM); Albumin 3.1 g/dL (3.5-5.0); Albumin/Globulin Ratio 1.1; Alkaline Phosphatase 57 U/L (38-126); Anion Gap 8 mmol/L; Blood Urea Nitrogen 13 mg/dL (9-20); Calcium 8.4 mg/dL (8.4-10.2); Carbon Dioxide 23 mmol/L (22-30); Chloride 108 mmol/L (98-107); Globulin 2.7 g/dL; Glucose 140 mg/dL (74-99); LDH 420 U/L (313-618); Magnesium 1.8 mg/dL (1.6-2.3); Non-African American GFR(CKD) >90 (>60 ml/min/1.73 sqM); Potassium 4.4 mmol/L (3.5-5.1); Sodium 139 mmol/L (137-145); Total Bilirubin 0.6 mg/dL (0.2-1.3); Total Protein 5.8 g/dL (6.3-8.2)
[2022-03-21 07:11] LABS: INR 1.4 (<1.2); Prothrombin Time 14.3 sec (9.0-12.0)
[2022-03-21 07:18] LABS: WBC 0.2 k/uL (3.8-10.6)
[2022-03-21 07:19] LABS: Platelet Count 18 k/uL (150-450)
[2022-03-21 07:21] LABS: HCT 19.6 % (39.0-53.0)
[2022-03-21] MEDS: CLOTRIMAZOLE/BETAMETH 1-0.05% CREAM 45 GM TUBE TOPICAL SCH ×2 (08:40→21:23)
[2022-03-21] MEDS: polyethylene glycoL 3350 17 GM POWD.PACK PO SCH (08:40)
[2022-03-21] MEDS: CYANOCOBALAMIN 500 MCG TAB PO SCH (08:42)
[2022-03-21] MEDS: ACYCLOVIR 200 MG CAP PO SCH ×2 (08:42→21:22)
[2022-03-21] MEDS: FOLIC ACID 1 MG TAB PO SCH (08:42)
[2022-03-21] MEDS: LORATADINE 10 MG TAB PO SCH (08:42)
[2022-03-21] MEDS: allopurinoL 300 MG TAB PO SCH (08:42)
[2022-03-21] MEDS: CHOLECALCIFEROL 25 MCG (1000 IU) TABLET PO SCH (08:42)
--- NOTE | 2022-03-21 08:44 | P.PN ---
Subjective Progress Note Date: 03/21/22 Patient had persistent fever up to 104 Tmax for > 6 hours yesterday despite tylenol. Started on andalifungin, stopped cefepime, started on aztreonam, started on betamethasone/clotrimazole cream for rash; COVID was positive, but no lower respiratory symptoms. Gen: awake, alert HEENT: normocephalic, atraumatic, good hearing acuity, moist mucous membranes Resp: good air exchange, breathing comfortably with no accessory muscle use CVS: good distal perfusion x 4, GI: soft, NTTP, ND : no SPT, no CVAT, watkins catheter not present MSK: no pitting edema, no clubbing Neuro: non-focal, moving all extremities Psych: cooperative, euthymic mood Persistent Neutropenic fevers Staph hominis bacteremia Macular Rash COVID+ - PICC line removed - ID recs - Heme/Onc recs - Vanco, aztreonam, andalifungin, acyclovir - Repeat viral PCRs - neg influenza A/B, RSV, +COVID - send out 1, 3, [id number]; galactomannan, pending - repeat BCx, pending Acute myelogenous leukemia Pancytopenia- chemo induced with neutropenia, Anemia,and Thrombocytopenia -Oncology recommendations -Completed induction chemotherapy this admission - Prior total of 10 units pRBC, and 4 unit plt - Follow labs closely. 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 Epistaxis, resolved DVT prophylaxis: SCDs due to thrombocytopenia Anticipated discharge: TBD Anticipated discharge place: home Objective - Vital Signs Vital signs: Vital Signs Temp 97.6 F 03/21/22 05:00 Pulse 132 H 03/21/22 05:00 Resp 16 03/21/22 05:00 BP 106/70 03/21/22 05:00 Pulse Ox 100 03/21/22 05:00 FiO2 Intake & Output 03/20/22 03/21/22 03/21/22 18:59 06:59 18:59 Intake Total 850 1180 Balance 850 1180 Intake: Intake, IV Titration 850 Amount Anidulafungin 100 mg In 200 Sodium Chloride 0.9% 100 ml @ 84 mls/hr IVPB DAILY [facility] Rx#:[id number] Sodium Chloride 0.9% 1, 150 000 ml @ 75 mls/hr IV . [id number] [facility] Rx#:[id number] Vancomycin 2,250 mg In 500 Sodium Chloride 0.9% 500 ml 500 ml @ 167 mls/hr IVPB ONCE ONE Rx#: [id number] Oral 1180 Other: Voiding Method Toilet Toilet Urinal Urinal # Voids 1 - Labs CBC & Chem 7: 03/21/22 06:07 03/21/22 06:07 Labs: Abnormal Lab Results - Last 24 Hours (Table) 03/20/22 03/20/22 03/20/22 Range/Units 05:55 05:55 09:28 WBC 0.75 L* (4.50-10.00) X 10*3/uL RBC 2.57 L (4.40-5.60) X 10*6/uL Hgb 7.4 L (13.0-17.0) g/dL Hct 21.7 L (39.6-50.0) % Plt Count 13 L* (140-440) X 10*3/uL Plt Count Comment A Neutrophils # 0 L* (1.80-7.70) X 10*3/uL Lymphocytes # 0.73 L (0.90-5.00) X 10*3/uL Monocytes # 0.02 L (0.20-1.00) X 10*3/uL Eosinophils # 0 L (0.04-0.35) X 10*3/uL PT 12.4 H (9.0-12.0) sec INR 1.2 H (<1.2) Fibrinogen 634 H (200-500) mg/dL Chloride (98-107) mmol/L Glucose (74-99) mg/dL Uric Acid (3.5-8.5) mg/dL AST (17-59) U/L Total Protein (6.3-8.2) g/dL Albumin (3.5-5.0) g/dL Procalcitonin 0.19 H (0.02-0.09) ng/mL Urine Protein (Negative) Urine Ketones (Negative) Urine Blood (Negative) Calcium Oxalate Crystal (None) /hpf Urine Mucus (None) /hpf SARS-CoV-2 (PCR) (Not Detectd) 0603/20/22 03/20/22 Range/Units 09:28 10:40 11:20 WBC (4.50-10.00) X 10*3/uL RBC (4.40-5.60) X 10*6/uL Hgb (13.0-17.0) g/dL Hct (39.6-50.0) % Plt Count (140-440) X 10*3/uL Plt Count Comment Neutrophils # (1.80-7.70) X 10*3/uL Lymphocytes # (0.90-5.00) X 10*3/uL Monocytes # (0.20-1.00) X 10*3/uL Eosinophils # (0.04-0.35) X 10*3/uL PT (9.0-12.0) sec INR (<1.2) Fibrinogen (200-500) mg/dL Chloride (98-107) mmol/L Glucose (74-99) mg/dL Uric Acid 1.9 L (3.5-8.5) mg/dL AST (17-59) U/L Total Protein (6.3-8.2) g/dL Albumin (3.5-5.0) g/dL Procalcitonin (0.02-0.09) ng/mL Urine Protein 1+ H (Negative) Urine Ketones 1+ H (Negative) Urine Blood Small H (Negative) Calcium Oxalate Crystal Few H (None) /hpf Urine Mucus Many H (None) /hpf SARS-CoV-2 (PCR) Detected A (Not Detectd) 03/21/22 03/21/22 03/21/22 Range/Units 06:07 06:07 06:07 WBC 0.2 L* (4.50-10.00) X 10*3/uL RBC 2.35 L (4.40-5.60) X 10*6/uL Hgb 7.0 L (13.0-17.0) g/dL Hct 19.6 L* (39.6-50.0) % Plt Count 18 L* D (140-440) X 10*3/uL Plt Count Comment Neutrophils # (1.80-7.70) X 10*3/uL Lymphocytes # (0.90-5.00) X 10*3/uL Monocytes # (0.20-1.00) X 10*3/uL Eosinophils # (0.04-0.35) X 10*3/uL PT 14.3 H (9.0-12.0) sec INR 1.4 H (<1.2) Fibrinogen (200-500) mg/dL Chloride 108 H (98-107) mmol/L Glucose 140 H (74-99) mg/dL Uric Acid (3.5-8.5) mg/dL AST 13 L (17-59) U/L Total Protein 5.8 L (6.3-8.2) g/dL Albumin 3.1 L (3.5-5.0) g/dL Procalcitonin (0.02-0.09) ng/mL Urine Protein (Negative) Urine Ketones (Negative) Urine Blood (Negative) Calcium Oxalate Crystal (None) /hpf Urine Mucus (None) /hpf SARS-CoV-2 (PCR) (Not Detectd) Microbiology - Last 24 Hours (Table) 03/14/22 06:12 Blood Culture - Final Blood No Growth after 144 hours
[2022-03-21 09:20] LABS: C Reactive Protein 14.1 mg/dL (<1.0)
[2022-03-21] MEDS: SODIUM CHLORIDE 0.9% 1,000 ML IV SCH ×2 (11:55→21:23)
[2022-03-21] MEDS: ANIDULAFUNGIN 100 MG in SODIUM CHLORIDE 0.9% 100 ML IVPB SCH (11:57)
[2022-03-21] MEDS: ALPRAZolam 0.25 MG TAB PO PRN ×2 (12:05→21:22)
[2022-03-21] MEDS ORDERED: CALAMINE/ZINC OXIDE LOTION 177 ML BTL TOPICAL PRN (19:53)
[2022-03-21] MEDS: SENNOSIDES 8.6 MG TAB PO SCH (21:21)
[2022-03-21] MEDS: OLANZapine 5 MG TAB PO SCH (21:22)
[2022-03-21] MEDS: diphenhydrAMINE 2% CREAM 28.4 GM TUBE TOPICAL SCH (21:29)
[2022-03-21] MEDS: ACETAMINOPHEN TAB 325 MG TAB PO PRN (23:00)
[2022-03-22] MEDS: VANCOMYCIN 2,000 MG in SODIUM CHLORIDE 0.9% 500 ML 500 ML IVPB SCH ×3 (05:47→21:39)
[2022-03-22] MEDS: SALT AND SODA MOUTHWASH 1,000 ML PO SCH ×4 (05:49→19:51)
[2022-03-22] MEDS: ALPRAZolam 0.25 MG TAB PO PRN (05:54)
[2022-03-22] MEDS: ACETAMINOPHEN TAB 325 MG TAB PO PRN ×3 (05:54→18:23)
[2022-03-22 07:12] LABS: INR 1.2 (<1.2); Partial Thromboplastin Time 28.2 sec (22.0-30.0); Prothrombin Time 12.7 sec (9.0-12.0)
[2022-03-22] MEDS: CLOTRIMAZOLE/BETAMETH 1-0.05% CREAM 45 GM TUBE TOPICAL SCH ×2 (07:40→20:16)
[2022-03-22] MEDS: allopurinoL 300 MG TAB PO SCH (07:47)
[2022-03-22] MEDS: CHOLECALCIFEROL 25 MCG (1000 IU) TABLET PO SCH (07:47)
[2022-03-22] MEDS: FOLIC ACID 1 MG TAB PO SCH (07:47)
[2022-03-22] MEDS: AZTREONAM 2 GM in SODIUM CHLORIDE 0.9% 100 ML IVPB SCH ×3 (07:47→19:51)
[2022-03-22] MEDS: ACYCLOVIR 200 MG CAP PO SCH ×2 (07:47→20:15)
[2022-03-22] MEDS: LORATADINE 10 MG TAB PO SCH (07:47)
[2022-03-22] MEDS: CYANOCOBALAMIN 500 MCG TAB PO SCH (07:47)
[2022-03-22] MEDS: diphenhydrAMINE 2% CREAM 28.4 GM TUBE TOPICAL SCH ×2 (07:48→20:16)
[2022-03-22] MEDS: polyethylene glycoL 3350 17 GM POWD.PACK PO SCH (08:02)
--- NOTE | 2022-03-22 09:44 | P.PN ---
Subjective Progress Note Date: 03/22/22 Patient continues to spike low-grade fevers. Continues on vancomycin, aztreonam, andalifungin, acyclovir. Rash today appears to cover her entire body, requested that vancomycin rate be decreased by half. Gen: awake, alert HEENT: normocephalic, atraumatic, good hearing acuity, moist mucous membranes Resp: good air exchange, breathing comfortably with no accessory muscle use CVS: good distal perfusion x 4, GI: soft, NTTP, ND : no SPT, no CVAT, watkins catheter not present MSK: no pitting edema, no clubbing Neuro: non-focal, moving all extremities Psych: cooperative, euthymic mood Persistent Neutropenic fevers Staph hominis bacteremia Macular Rash COVID+ - PICC line removed - ID recs - Heme/Onc recs - Vanco, aztreonam, andalifungin, acyclovir - Repeat viral PCRs - neg influenza A/B, RSV, +COVID - send out 1, 3, [id number]; galactomannan, pending - repeat BCx, pending Acute myelogenous leukemia Pancytopenia- chemo induced with neutropenia, Anemia,and Thrombocytopenia -Oncology recommendations -Completed induction chemotherapy this admission - Prior total of 10 units pRBC, and 4 unit plt - Follow labs closely. 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 Epistaxis, resolved DVT prophylaxis: SCDs due to thrombocytopenia Anticipated discharge: TBD Anticipated discharge place: home Objective - Vital Signs Vital signs: Vital Signs Temp 98.5 F 03/22/22 07:46 Pulse 126 H 03/22/22 07:46 Resp 20 03/22/22 07:46 BP 119/64 03/22/22 07:46 Pulse Ox 96 03/22/22 07:46 FiO2 Intake & Output 03/21/22 03/22/22 03/22/22 18:59 06:59 18:59 Intake Total 1550 900 Balance 1550 900 Weight 115.666 kg Intake: Intake, IV Titration 1550 900 Amount Aztreonam 2 gm In Sodium 100 100 Chloride 0.9% 100 ml @ 33 .3 mls/hr IVPB Q8HR [facility] Rx#:[id number] Sodium Chloride 0.9% 1, 450 300 000 ml @ 75 mls/hr IV . [id number] [facility] Rx#:[id number] Vancomycin 2,000 mg In 1000 500 Sodium Chloride 0.9% 500 ml 500 ml @ 167 mls/hr IVPB Q8H [facility] Rx#: [id number] Other: Voiding Method Toilet # Voids 1 - Labs CBC & Chem 7: 03/21/22 06:07 03/21/22 06:07 Labs: Abnormal Lab Results - Last 24 Hours (Table) 03/20/22 03/21/22 03/22/22 Range/Units 12:55 06:07 05:45 PT 12.7 H (9.0-12.0) sec INR 1.2 H (<1.2) Procalcitonin 16.60 H (0.02-0.09) ng/mL Coronavirus (PCR) Detected A (Not Detected) Microbiology - Last 24 Hours (Table) 03/20/22 09:54 Blood Culture - Preliminary Blood No Growth after 24 hours 03/20/22 09:27 Blood Culture - Preliminary Blood No Growth after 24 hours
[2022-03-22] MEDS: HYDROcodone/APAP 5-325MG 1 EACH TAB PO PRN (10:12)
[2022-03-22] MEDS: ANIDULAFUNGIN 100 MG in SODIUM CHLORIDE 0.9% 100 ML IVPB SCH (10:12)
[2022-03-22 10:21] LABS: ALT 23 U/L (10-49); AST 7 U/L (14-35); African American GFR (CKD) 142.9 (60.0-200.0); Albumin 3.1 g/dL (3.8-4.9); Albumin/Globulin Ratio 1.41 (1.60-3.17); Alkaline Phosphatase 56 U/L (41-126); BUN/Creat Ratio 12.63 Ratio (12.00-20.00); Bilirubin, Conjugated <0.20 mg/dL (0.20-0.40); Blood Urea Nitrogen 10.1 mg/dL (9.0-27.0); Calcium 7.9 mg/dL (8.7-10.3); Carbon Dioxide 20.1 mmol/L (20.0-27.5); Chloride 108 mmol/L (96-109); Globulin 2.2 g/dL (1.6-3.3); Glucose 99 mg/dL (70-110); Magnesium 1.7 mg/dL (1.5-2.4); Non-African American GFR(CKD) 123.3 (60.0-200.0); Potassium 3.8 mmol/L (3.5-5.5); Sodium 144 mmol/L (135-145); Total Protein 5.3 g/dL (6.2-8.2)
[2022-03-22] MEDS: guaiFENesin SYRUP 100MG/5ML 200 MG/10 ML CUP PO PRN (10:29)
--- NOTE | 2022-03-22 12:10 | P.PN ---
Subjective Progress Note Date: 03/22/22 Principal diagnosis: Confirmed AML Patient is positive for COVID, we are awaiting his CBC from today, have asked for stat results to be posted. Fevers 100.3 T max Objective - Vital Signs Vital signs: Vital Signs Temp 98.5 F 03/22/22 07:46 Pulse 126 H 03/22/22 07:46 Resp 20 03/22/22 07:46 BP 119/64 03/22/22 07:46 Pulse Ox 96 03/22/22 07:46 FiO2 Intake & Output 03/21/22 03/22/22 03/22/22 18:59 06:59 18:59 Intake Total 1550 900 Balance 1550 900 Weight 115.666 kg Intake: Intake, IV Titration 1550 900 Amount Aztreonam 2 gm In Sodium 100 100 Chloride 0.9% 100 ml @ 33 .3 mls/hr IVPB Q8HR [facility] Rx#:[id number] Sodium Chloride 0.9% 1, 450 300 000 ml @ 75 mls/hr IV . [id number] [facility] Rx#:[id number] Vancomycin 2,000 mg In 1000 500 Sodium Chloride 0.9% 500 ml 500 ml @ 167 mls/hr IVPB Q8H [facility] Rx#: [id number] Other: Voiding Method Toilet # Voids 1 - Exam - EENT Eyes: EOMI ENT: NA/AT - Respiratory Respiratory: bilateral: CTA - Cardiovascular Rhythm: regular - Gastrointestinal General gastrointestinal: soft - Integumentary Integumentary: pale, Rash papular - Neurologic Neurologic: CNII-XII intact - Musculoskeletal Musculoskeletal: generalized weakness, strength equal bilaterally - Psychiatric Psychiatric: A&O x's 3, appropriate affect, intact judgment & insight - Labs CBC & Chem 7: 03/21/22 06:07 03/22/22 05:45 Labs: Abnormal Lab Results - Last 24 Hours (Table) 03/20/22 03/21/22 03/22/22 Range/Units 12:55 06:07 05:45 PT (9.0-12.0) sec INR (<1.2) Calcium 7.9 L (8.7-10.3) mg/dL Conjugated Bilirubin <0.20 L (0.20-0.40) mg/dL AST 7 L (14-35) U/L Total Protein 5.3 L (6.2-8.2) g/dL Albumin 3.1 L (3.8-4.9) g/dL Albumin/Globulin Ratio 1.41 L (1.60-3.17) g/dL Procalcitonin 16.60 H (0.02-0.09) ng/mL Coronavirus (PCR) Detected A (Not Detected) 03/22/22 Range/Units 05:45 PT 12.7 H (9.0-12.0) sec INR 1.2 H (<1.2) Calcium (8.7-10.3) mg/dL Conjugated Bilirubin (0.20-0.40) mg/dL AST (14-35) U/L Total Protein (6.2-8.2) g/dL Albumin (3.8-4.9) g/dL Albumin/Globulin Ratio (1.60-3.17) g/dL Procalcitonin (0.02-0.09) ng/mL Coronavirus (PCR) (Not Detected) Microbiology - Last 24 Hours (Table) 03/20/22 09:54 Blood Culture - Preliminary Blood No Growth after 24 hours 03/20/22 09:27 Blood Culture - Preliminary Blood No Growth after 24 hours Assessment and Plan (1) AML (acute myelogenous leukemia) Narrative/Plan: New Diagnosis Status Post Induction with 7 plus 3 Antiemetics Daily labs Close monitoring Cytogenics with one favorable, one not favorable. Will check Bone Marrow biopsy for induction response and if remission arrange for [facility] appointment., Current Visit: Yes Status: Acute Priority: High Code(s): C92.00 - ACUTE MYELOBLASTIC LEUKEMIA, NOT HAVING ACHIEVED REMISSION SNOMED Code(s): 82742305 (2) Leukocytosis Narrative/Plan: Secondary to AML, Current Visit: Yes Status: Acute Priority: High Code(s): D72.829 - ELEVATED WHITE BLOOD CELL COUNT, UNSPECIFIED SNOMED Code(s): 837873640 (3) Thrombocytopenia Narrative/Plan: NO ASA, AC therapy, NSAIDS. Transfusions with Irradiated blood products only. >10K Monitor closely Current Visit: Yes Status: Acute Code(s): D69.6 - THROMBOCYTOPENIA, UNSPECIFIED SNOMED Code(s): 819603279 (4) Coagulopathy Narrative/Plan: Monitor closely with active COVID Current Visit: Yes Status: Acute Code(s): D68.9 - COAGULATION DEFECT, UNSPECIFIED SNOMED Code(s): 41402698 (5) Neutropenic fever Narrative/Plan: T-Max 100.3 Covid Positive Current Visit: Yes Status: Acute Priority: High Code(s): D70.9 - NEUTROPENIA, UNSPECIFIED; R50.81 - FEVER PRESENTING WITH CONDITIONS CLASSIFIED ELSEWHERE SNOMED Code(s): 383988465 (6) Pancytopenia due to antineoplastic chemotherapy Current Visit: Yes Status: Acute Priority: High Code(s): D61.810 - ANTINEOPLASTIC CHEMOTHERAPY INDUCED PANCYTOPENIA; T45.1X5A - ADVERSE EFFECT OF ANTINEOPLASTIC AND IMMUNOSUP DRUGS, INIT SNOMED Code(s): 082922646134436 (7) COVID-19 Narrative/Plan: Aggressive supportive care ID following closely Monitor closely for DIC and respiratory maintenance Increase Vitamin D3 dosage and add Zinc Current Visit: Yes Status: Acute Code(s): U07.1 - COVID-19 SNOMED Code(s): 484528225 Plan: Monitor IgG Levels, IVIG if less than 600 in high risk acutely ill neutropenic patient with COVID
[2022-03-22] MEDS: ZINC SULFATE 220 MG CAP PO SCH (12:47)
[2022-03-22 12:51] LABS: Basophils # (M) 0 X 10*3/uL (0.00-0.10); Eosinophils # (M) 0 X 10*3/uL (0.04-0.35); Immature Platelet Fraction 4.8 % (1.1-6.1); Lymphocytes # (M) 0.46 X 10*3/uL (0.90-5.00); MCH 29.2 pg (27.0-32.0); MCHC 35.7 g/dL (32.0-37.0); MCV 81.8 fL (80.0-97.0); Mean Platelet Volume 10.9 fL (9.5-12.2); Monocytes # (M) 0.02 X 10*3/uL (0.20-1.00); NRBC Per 100 WBC 0 /100 WBCS (0.0-0.0); Neutrophils # (M) 0.04 X 10*3/uL (2.00-8.90); Neutrophils % (M) 7 %; Platelet Count 46 X 10*3/uL (140-440); RBC 2.09 X 10*6/uL (4.40-5.60); RBC Morphology NORMAL; RDW 13.7 % (11.5-14.5)
[2022-03-22 13:04] LABS: HCT 17.1 % (39.6-50.0); HGB 6.1 g/dL (13.0-17.0); WBC 0.51 X 10*3/uL (4.50-10.00)
[2022-03-22] MEDS: SODIUM CHLORIDE 0.9% 1,000 ML IV SCH (15:52)
[2022-03-22] MEDS: LORazepam 1 MG TAB PO PRN (18:19)
[2022-03-22] MEDS ORDERED: IBUPROFEN 600 MG TAB PO STA (19:54)
[2022-03-22] MEDS: CHOLESTYRAMINE (WITH SUGAR) 4 GM PACKET PO SCH (20:15)
[2022-03-22] MEDS: SENNOSIDES 8.6 MG TAB PO SCH (20:16)
[2022-03-22] MEDS: OLANZapine 5 MG TAB PO SCH (21:39)
[2022-03-23] MEDS: SALT AND SODA MOUTHWASH 1,000 ML PO SCH ×6 (00:15→23:59)
[2022-03-23] MEDS: HYDROcodone/APAP 5-325MG 1 EACH TAB PO PRN (02:15)
[2022-03-23] MEDS: SODIUM CHLORIDE 0.9% 1,000 ML IV SCH ×2 (03:53→05:22)
[2022-03-23] MEDS: AZTREONAM 2 GM in SODIUM CHLORIDE 0.9% 100 ML IVPB SCH ×3 (03:53→19:52)
[2022-03-23] MEDS: ACETAMINOPHEN TAB 325 MG TAB PO PRN ×3 (05:21→13:38)
[2022-03-23] MEDS: VANCOMYCIN 2,000 MG in SODIUM CHLORIDE 0.9% 500 ML 500 ML IVPB SCH ×3 (06:00→22:37)
[2022-03-23 07:03] LABS: MCH 29.3 pg (25.0-35.0); MCHC 34.5 g/dL (31.0-37.0); MCV 84.9 fL (80.0-100.0); Mean Platelet Volume 8.3; RBC 2.33 m/uL (4.30-5.90); RDW 14.1 % (11.5-15.5); WBC 1.1 k/uL (3.8-10.6)
[2022-03-23 07:04] LABS: Platelet Count 86 k/uL (150-450)
[2022-03-23 07:07] LABS: HCT 19.8 % (39.0-53.0); HGB 6.8 gm/dL (13.0-17.5)
[2022-03-23 07:28] LABS: Partial Thromboplastin Time 29.5 sec (22.0-30.0)
[2022-03-23 07:29] LABS: ALT 22 U/L (4-49); AST 18 U/L (17-59); African American GFR (CKD) >90 (>60 ml/min/1.73 sqM); Albumin 2.6 g/dL (3.5-5.0); Albumin/Globulin Ratio 1.1; Alkaline Phosphatase 51 U/L (38-126); Anion Gap 7 mmol/L; Blood Urea Nitrogen 9 mg/dL (9-20); Calcium 7.4 mg/dL (8.4-10.2); Carbon Dioxide 19 mmol/L (22-30); Chloride 109 mmol/L (98-107); Globulin 2.4 g/dL; Glucose 87 mg/dL (74-99); LDH 601 U/L (313-618); Magnesium 1.6 mg/dL (1.6-2.3); Non-African American GFR(CKD) >90 (>60 ml/min/1.73 sqM); Phosphorus 2.5 mg/dL (2.5-4.5); Potassium 3.5 mmol/L (3.5-5.1); Sodium 135 mmol/L (137-145); Total Bilirubin 0.4 mg/dL (0.2-1.3); Uric Acid 2.2 mg/dL (3.5-8.5)
--- NOTE | 2022-03-23 08:18 | P.PN ---
Subjective Progress Note Date: 03/21/22 Principal diagnosis: Febrile neutropenia Patient is a 26-year-old male with the acute myelogenous leukemia admitted to the hospital for induction of chemotherapy patient did have right upper extremity PICC line for chemotherapy developing a fever. On today's evaluation that is 03/21/2022, patient fever pattern has improved and is afebrile this morning, patient is feeling better, the patient denies having any chest pain or shortness of breath and minimal cough no nausea no vomiting no abdominal pain and no diarrhea Objective - Vital Signs Vital signs: Vital Signs Temp 97.6 F 03/21/22 08:53 Pulse 132 H 03/21/22 05:00 Resp 16 03/21/22 05:00 BP 106/70 03/21/22 05:00 Pulse Ox 100 03/21/22 05:00 FiO2 Intake & Output 03/20/22 03/21/22 03/21/22 18:59 06:59 18:59 Intake Total 850 1180 Balance 850 1180 Intake: Intake, IV Titration 850 Amount Anidulafungin 100 mg In 200 Sodium Chloride 0.9% 100 ml @ 84 mls/hr IVPB DAILY [facility] Rx#:[id number] Sodium Chloride 0.9% 1, 150 000 ml @ 75 mls/hr IV . [id number] [facility] Rx#:[id number] Vancomycin 2,250 mg In 500 Sodium Chloride 0.9% 500 ml 500 ml @ 167 mls/hr IVPB ONCE ONE Rx#: [id number] Oral 1180 Other: Voiding Method Toilet Toilet Urinal Urinal # Voids 1 - Exam GENERAL DESCRIPTION: A middle-age male lying in bed in no distress RESPIRATORY SYSTEM: Unlabored breathing , decreased breath sounds at bases HEART: S1 S2 regular rate and rhythm , ABDOMEN: Soft , no tenderness , left groin with mostly bruising no vesicles SKIN: Maculopapular rash to the trunk EXTREMITIES: No edema feet - Labs CBC & Chem 7: 03/23/22 06:38 03/23/22 06:38 Labs: Abnormal Lab Results - Last 24 Hours (Table) 03/20/22 03/20/22 03/20/22 Range/Units 05:55 05:55 09:28 WBC 0.75 L* (4.50-10.00) X 10*3/uL RBC 2.57 L (4.40-5.60) X 10*6/uL Hgb 7.4 L (13.0-17.0) g/dL Hct 21.7 L (39.6-50.0) % Plt Count 13 L* (140-440) X 10*3/uL Plt Count Comment A Neutrophils # 0 L* (1.80-7.70) X 10*3/uL Lymphocytes # 0.73 L (0.90-5.00) X 10*3/uL Monocytes # 0.02 L (0.20-1.00) X 10*3/uL Eosinophils # 0 L (0.04-0.35) X 10*3/uL PT 12.4 H (9.0-12.0) sec INR 1.2 H (<1.2) Fibrinogen 634 H (200-500) mg/dL Chloride (98-107) mmol/L Glucose (74-99) mg/dL Uric Acid (3.5-8.5) mg/dL AST (17-59) U/L C-Reactive Protein (<1.0) mg/dL Total Protein (6.3-8.2) g/dL Albumin (3.5-5.0) g/dL Procalcitonin 0.19 H (0.02-0.09) ng/mL Urine Protein (Negative) Urine Ketones (Negative) Urine Blood (Negative) Calcium Oxalate Crystal (None) /hpf Urine Mucus (None) /hpf SARS-CoV-2 (PCR) (Not Detectd) 03/20/22 03/20/22 03/20/22 Range/Units 09:28 10:40 11:20 WBC (4.50-10.00) X 10*3/uL RBC (4.40-5.60) X 10*6/uL Hgb (13.0-17.0) g/dL Hct (39.6-50.0) % Plt Count (140-440) X 10*3/uL Plt Count Comment Neutrophils # (1.80-7.70) X 10*3/uL Lymphocytes # (0.90-5.00) X 10*3/uL Monocytes # (0.20-1.00) X 10*3/uL Eosinophils # (0.04-0.35) X 10*3/uL PT (9.0-12.0) sec INR (<1.2) Fibrinogen (200-500) mg/dL Chloride (98-107) mmol/L Glucose (74-99) mg/dL Uric Acid 1.9 L (3.5-8.5) mg/dL AST (17-59) U/L C-Reactive Protein (<1.0) mg/dL Total Protein (6.3-8.2) g/dL Albumin (3.5-5.0) g/dL Procalcitonin (0.02-0.09) ng/mL Urine Protein 1+ H (Negative) Urine Ketones 1+ H (Negative) Urine Blood Small H (Negative) Calcium Oxalate Crystal Few H (None) /hpf Urine Mucus Many H (None) /hpf SARS-CoV-2 (PCR) Detected A (Not Detectd) 03/21/22 03/21/22 03/21/22 Range/Units 06:07 06:07 06:07 WBC 0.2 L* (4.50-10.00) X 10*3/uL RBC 2.35 L (4.40-5.60) X 10*6/uL Hgb 7.0 L (13.0-17.0) g/dL Hct 19.6 L* (39.6-50.0) % Plt Count 18 L* D (140-440) X 10*3/uL Plt Count Comment Neutrophils # (1.80-7.70) X 10*3/uL Lymphocytes # (0.90-5.00) X 10*3/uL Monocytes # (0.20-1.00) X 10*3/uL Eosinophils # (0.04-0.35) X 10*3/uL PT 14.3 H (9.0-12.0) sec INR 1.4 H (<1.2) Fibrinogen (200-500) mg/dL Chloride 108 H (98-107) mmol/L Glucose 140 H (74-99) mg/dL Uric Acid (3.5-8.5) mg/dL AST 13 L (17-59) U/L C-Reactive Protein 14.1 H (<1.0) mg/dL Total Protein 5.8 L (6.3-8.2) g/dL Albumin 3.1 L (3.5-5.0) g/dL Procalcitonin (0.02-0.09) ng/mL Urine Protein (Negative) Urine Ketones (Negative) Urine Blood (Negative) Calcium Oxalate Crystal (None) /hpf Urine Mucus (None) /hpf SARS-CoV-2 (PCR) (Not Detectd) Microbiology - Last 24 Hours (Table) 03/14/22 06:12 Blood Culture - Final Blood No Growth after 144 hours Assessment and Plan (1) Neutropenic fever Current Visit: Yes Status: Acute Priority: High Code(s): D70.9 - NEUTROPENIA, UNSPECIFIED; R50.81 - FEVER PRESENTING WITH CONDITIONS CLASSIFIED ELSEWHERE SNOMED Code(s): 325323044 Plan: 1patient with a febrile neutropenia in this patient with acute myelogenous leukemia admitted to the hospital for induction of chemotherapy and is day 10 of induction therapy patient did have a right upper arm PICC line which was placed this admission on his symptoms of nosebleed but no other obvious signs and symptoms of infection and the work-up has been negative so far with a negative chest x-ray negative UA abdominal soft frontal examination CT of the brain with left maxillary sinusitis however CT of the sinuses did not show any evidence of sinusitis. 2patient blood cultures came back positive with gram-positive cocci which has been finalized as coagulase negative staph, keeping in mind his persistent fever patient PICC line was discontinued, the patient also have CT of the chest which did not show any pneumonia 3-patient staph epi was sensitive to cefazolin and the patient was continued on cefepime however the patient has developed a generalized rash which could be related to cefepime and likely responsible for fever as well. Cefepime was discontinued Vanco was started patient was still running a fever hence Azactam was added to cover for gram-negative and the patient fever seemed to have resolved 4patient also have a positive core test mild URI symptoms chest x-ray has been negative for acute infiltrate, and is not hypoxic did review mostly supportive with zinc ascorbic acid did not qualify for dexamethasone or Remdisivir Time with Patient: Less than 30
--- NOTE | 2022-03-23 08:20 | P.PN ---
Subjective Progress Note Date: 03/22/22 Principal diagnosis: Febrile neutropenia Patient is a 26-year-old male with the acute myelogenous leukemia admitted to the hospital for induction of chemotherapy patient did have right upper extremity PICC line for chemotherapy developing a fever. On today's evaluation that is 03/22/2022, patient did have a low-grade fever this morning, patient is breathing comfortably on room air, the patient denies having any chest pain or shortness of breath and minimal cough no nausea no vomiting no abdominal pain and no diarrhea Objective - Vital Signs Vital signs: Vital Signs Temp 98.5 F 03/22/22 07:46 Pulse 126 H 03/22/22 07:46 Resp 20 03/22/22 07:46 BP 119/64 03/22/22 07:46 Pulse Ox 96 03/22/22 07:46 FiO2 Intake & Output 03/21/22 03/22/22 03/22/22 18:59 06:59 18:59 Intake Total 1550 900 Balance 1550 900 Weight 115.666 kg Intake: Intake, IV Titration 1550 900 Amount Aztreonam 2 gm In Sodium 100 100 Chloride 0.9% 100 ml @ 33 .3 mls/hr IVPB Q8HR [facility] Rx#:[id number] Sodium Chloride 0.9% 1, 450 300 000 ml @ 75 mls/hr IV . [id number] [facility] Rx#:[id number] Vancomycin 2,000 mg In 1000 500 Sodium Chloride 0.9% 500 ml 500 ml @ 167 mls/hr IVPB Q8H [facility] Rx#: [id number] Other: Voiding Method Toilet # Voids 1 - Exam GENERAL DESCRIPTION: A middle-age male lying in bed in no distress RESPIRATORY SYSTEM: Unlabored breathing , decreased breath sounds at bases HEART: S1 S2 regular rate and rhythm , ABDOMEN: Soft , no tenderness , left groin with mostly bruising no vesicles SKIN: Maculopapular rash to the trunk EXTREMITIES: No edema feet - Labs CBC & Chem 7: 03/23/22 06:38 03/23/22 06:38 Labs: Abnormal Lab Results - Last 24 Hours (Table) 03/20/22 03/21/22 03/22/22 Range/Units 12:55 06:07 05:45 PT (9.0-12.0) sec INR (<1.2) Calcium 7.9 L (8.7-10.3) mg/dL Conjugated Bilirubin <0.20 L (0.20-0.40) mg/dL AST 7 L (14-35) U/L Total Protein 5.3 L (6.2-8.2) g/dL Albumin 3.1 L (3.8-4.9) g/dL Albumin/Globulin Ratio 1.41 L (1.60-3.17) g/dL Procalcitonin 16.60 H (0.02-0.09) ng/mL Coronavirus (PCR) Detected A (Not Detected) 03/22/22 Range/Units 05:45 PT 12.7 H (9.0-12.0) sec INR 1.2 H (<1.2) Calcium (8.7-10.3) mg/dL Conjugated Bilirubin (0.20-0.40) mg/dL AST (14-35) U/L Total Protein (6.2-8.2) g/dL Albumin (3.8-4.9) g/dL Albumin/Globulin Ratio (1.60-3.17) g/dL Procalcitonin (0.02-0.09) ng/mL Coronavirus (PCR) (Not Detected) Microbiology - Last 24 Hours (Table) 03/20/22 09:54 Blood Culture - Preliminary Blood No Growth after 24 hours 03/20/22 09:27 Blood Culture - Preliminary Blood No Growth after 24 hours Assessment and Plan (1) Neutropenic fever Current Visit: Yes Status: Acute Priority: High Code(s): D70.9 - NEUTROPENIA, UNSPECIFIED; R50.81 - FEVER PRESENTING WITH CONDITIONS CLASSIFIED ELSEWHERE SNOMED Code(s): 108241504 Plan: 1patient with a febrile neutropenia in this patient with acute myelogenous leukemia admitted to the hospital for induction of chemotherapy and is day 10 of induction therapy patient did have a right upper arm PICC line which was placed this admission on his symptoms of nosebleed but no other obvious signs and s ymptoms of infection and the work-up has been negative so far with a negative chest x-ray negative UA abdominal soft frontal examination CT of the brain with left maxillary sinusitis however CT of the sinuses did not show any evidence of sinusitis. 2patient blood cultures came back positive with gram-positive cocci which has been finalized as coagulase negative staph, keeping in mind his persistent fever patient PICC line was discontinued, the patient also have CT of the chest which did not show any pneumonia 3-patient with a positive covid test mild URI symptoms chest x-ray has been negative for acute infiltrate, and is not hypoxic did review mostly supportive with zinc ascorbic acid did not qualify for dexamethasone or Remdisivir 4- patient staph epi was sensitive to cefazolin and the patient was continued on cefepime however the patient has developed a generalized rash which could be related to cefepime and likely responsible for fever as well. Cefepime was discontinued Vanco was started patient was still running a fever hence Azactam was added to cover for gram-negative and the patient fever seemed to have initially resolved but did have a low-grade fever this morning which will monitor closely Time with Patient: Less than 30
[2022-03-23 08:37] LABS: Blast Cells # (M) 0.04 k/uL (0); Metamyelocytes # (M) 0.01 k/uL (0); Metamyelocytes % 1 %; Monocytes # (M) 0.17 k/uL (0-1.0); Neutrophils # (M) 0.18 k/uL (1.3-7.7); Neutrophils % (M) 16 %; Nucleated Red Blood Cells 0 /100 WBC (0-0); Total Cells Counted 100
[2022-03-23] MEDS: CHOLECALCIFEROL 25 MCG (1000 IU) TABLET PO SCH (09:05)
[2022-03-23] MEDS: allopurinoL 300 MG TAB PO SCH (09:06)
[2022-03-23] MEDS: ACYCLOVIR 200 MG CAP PO SCH ×2 (09:06→19:51)
[2022-03-23] MEDS: CYANOCOBALAMIN 500 MCG TAB PO SCH (09:06)
[2022-03-23] MEDS: CHOLESTYRAMINE (WITH SUGAR) 4 GM PACKET PO SCH ×5 (09:06→19:52)
[2022-03-23] MEDS: LORATADINE 10 MG TAB PO SCH (09:06)
[2022-03-23] MEDS: FOLIC ACID 1 MG TAB PO SCH (09:06)
[2022-03-23] MEDS: diphenhydrAMINE 2% CREAM 28.4 GM TUBE TOPICAL SCH ×2 (09:07→21:44)
[2022-03-23] MEDS: polyethylene glycoL 3350 17 GM POWD.PACK PO SCH (09:08)
[2022-03-23] MEDS: CLOTRIMAZOLE/BETAMETH 1-0.05% CREAM 45 GM TUBE TOPICAL SCH ×2 (09:08→21:44)
[2022-03-23] MEDS: VORICONAZOLE 500 MG in SODIUM CHLORIDE 0.9% 250 ML IVPB SCH ×2 (09:13→21:44)
[2022-03-23] MEDS: ZINC SULFATE 220 MG CAP PO SCH (09:14)
--- NOTE | 2022-03-23 11:08 | P.PN ---
Subjective Progress Note Date: 03/23/22 Patient continues to spike high-grade fevers. Continues on vancomycin, aztreonam, voriconazole, acyclovir. Bone marrow appears to be recovering, white blood cell count, platelets are increasing, hemoglobin stable, for blast cells in the peripheral smear Gen: awake, alert HEENT: normocephalic, atraumatic, good hearing acuity, moist mucous membranes Resp: good air exchange, breathing comfortably with no accessory muscle use CVS: good distal perfusion x 4, GI: soft, NTTP, ND : no SPT, no CVAT, watkins catheter not present MSK: no pitting edema, no clubbing Neuro: non-focal, moving all extremities Psych: cooperative, euthymic mood Persistent Neutropenic fevers Staph hominis bacteremia Macular Rash COVID+ - PICC line removed - ID recs - Heme/Onc recs - Vanco, aztreonam, voriconazole, acyclovir - Repeat viral PCRs - neg influenza A/B, RSV, +COVID - send out 1, 3, [id number]; galactomannan, pending - repeat BCx, no growth to date Acute myelogenous leukemia Pancytopenia- chemo induced with neutropenia, Anemia,and Thrombocytopenia -Oncology recommendations -Completed induction chemotherapy this admission - Prior total of 10 units pRBC, and 4 unit plt - Follow labs closely. 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 Epistaxis, resolved DVT prophylaxis: SCDs due to thrombocytopenia Anticipated discharge: TBD Anticipated discharge place: home Objective - Vital Signs Vital signs: Vital Signs Temp 101.9 F H 03/23/22 10:31 Pulse 129 H 03/23/22 05:00 Resp 20 03/23/22 05:00 BP 143/69 03/23/22 05:00 Pulse Ox 95 03/23/22 05:00 FiO2 Intake & Output 03/22/22 03/23/22 03/23/22 18:59 06:59 18:59 Intake Total 1350 3050 Balance 1350 3050 Weight 115.666 kg Intake: Intake, IV Titration 1350 1400 Amount Aztreonam 2 gm In Sodium 100 100 Chloride 0.9% 100 ml @ 33 .3 mls/hr IVPB Q8H [facility] Rx #:[id number] Sodium Chloride 0.9% 1, 750 800 000 ml @ 75 mls/hr IV . [id number] [facility] Rx#:[id number] Vancomycin 2,000 mg In 500 500 Sodium Chloride 0.9% 500 ml 500 ml @ 167 mls/hr IVPB Q8H [facility] Rx#: [id number] Oral 1340 Blood Product 0 310 Rc Irr As1 Unit 0 310 [id number] Other: Voiding Method Toilet # Voids 1 1 # Bowel Movements 1 - Labs CBC & Chem 7: 03/23/22 06:38 03/23/22 06:38 Labs: Abnormal Lab Results - Last 24 Hours (Table) 03/22/22 03/22/22 03/23/22 Range/Units 05:45 13:40 06:38 WBC 0.51 L* 1.1 L* (4.50-10.00) X 10*3/uL RBC 2.09 L 2.33 L (4.40-5.60) X 10*6/uL Hgb 6.1 L* 6.8 L* (13.0-17.0) g/dL Hct 17.1 L* 19.8 L* (39.6-50.0) % Plt Count 46 L 86 L D (140-440) X 10*3/uL Plt Count Comment A Blast Cells % 4 H* % Neutrophils # (Manual) 0.04 L* 0.18 L* (2.00-8.90) X 10*3/uL Lymphocytes # (Manual) 0.46 L 0.70 L (0.90-5.00) X 10*3/uL Monocytes # (Manual) 0.02 L (0.20-1.00) X 10*3/uL Eosinophils # (Manual) 0 L (0.04-0.35) X 10*3/uL Metamyelocytes # (Man) 0.01 H (0) k/uL Blast Cells # (Man) 0.04 H (0) k/uL Sodium (137-145) mmol/L Chloride (98-107) mmol/L Carbon Dioxide (22-30) mmol/L Uric Acid (3.5-8.5) mg/dL Calcium (8.4-10.2) mg/dL Total Protein (6.3-8.2) g/dL Albumin (3.5-5.0) g/dL Crossmatch See Detail 03/23/22 Range/Units 06:38 WBC (4.50-10.00) X 10*3/uL RBC (4.40-5.60) X 10*6/uL Hgb (13.0-17.0) g/dL Hct (39.6-50.0) % Plt Count (140-440) X 10*3/uL Plt Count Comment Blast Cells % % Neutrophils # (Manual) (2.00-8.90) X 10*3/uL Lymphocytes # (Manual) (0.90-5.00) X 10*3/uL Monocytes # (Manual) (0.20-1.00) X 10*3/uL Eosinophils # (Manual) (0.04-0.35) X 10*3/uL Metamyelocytes # (Man) (0) k/uL Blast Cells # (Man) (0) k/uL Sodium 135 L (137-145) mmol/L Chloride 109 H (98-107) mmol/L Carbon Dioxide 19 L (22-30) mmol/L Uric Acid 2.2 L (3.5-8.5) mg/dL Calcium 7.4 L (8.4-10.2) mg/dL Total Protein 5.0 L (6.3-8.2) g/dL Albumin 2.6 L (3.5-5.0) g/dL Crossmatch Microbiology - Last 24 Hours (Table) 03/20/22 09:54 Blood Culture - Preliminary Blood No Growth after 48 hours 03/20/22 09:27 Blood Culture - Preliminary Blood No Growth after 48 hours
--- NOTE | 2022-03-23 12:37 | P.PN ---
Subjective Progress Note Date: 03/23/22 Principal diagnosis: Confirmed AML Fevers up to 103 through night, Patient's Increased WBC and HR and platelets are present in CBC. The blasts are likely related to the rapid increase with infection and myeloid reaction. Will continue aggressive supportive care and monitor closely. Objective - Vital Signs Vital signs: Vital Signs Temp 103.1 F H 03/23/22 12:07 Pulse 122 H 03/23/22 12:07 Resp 15 03/23/22 12:07 BP 124/71 03/23/22 12:07 Pulse Ox 94 L 03/23/22 12:07 FiO2 Intake & Output 03/22/22 03/23/22 03/23/22 18:59 06:59 18:59 Intake Total 1350 3050 Balance 1350 3050 Weight 115.666 kg Intake: Intake, IV Titration 1350 1400 Amount Aztreonam 2 gm In Sodium 100 100 Chloride 0.9% 100 ml @ 33 .3 mls/hr IVPB Q8H [facility] Rx #:[id number] Sodium Chloride 0.9% 1, 750 800 000 ml @ 75 mls/hr IV . [id number] [facility] Rx#:[id number] Vancomycin 2,000 mg In 500 500 Sodium Chloride 0.9% 500 ml 500 ml @ 167 mls/hr IVPB Q8H [facility] Rx#: [id number] Oral 1340 Blood Product 0 310 Rc Irr As1 Unit 0 310 [id number] Other: Voiding Method Toilet # Voids 1 1 # Bowel Movements 1 - Exam - EENT Eyes: EOMI ENT: NA/AT - Respiratory Respiratory: bilateral: CTA - Cardiovascular Rhythm: regular - Gastrointestinal General gastrointestinal: soft - Integumentary Integumentary: pale, Rash papular - Neurologic Neurologic: CNII-XII intact - Musculoskeletal Musculoskeletal: generalized weakness, strength equal bilaterally - Psychiatric Psychiatric: A&O x's 3, appropriate affect, intact judgment & insight - Labs CBC & Chem 7: 03/23/22 06:38 03/23/22 06:38 Labs: Abnormal Lab Results - Last 24 Hours (Table) 03/22/22 03/22/22 03/23/22 Range/Units 05:45 13:40 06:38 WBC 0.51 L* 1.1 L* (4.50-10.00) X 10*3/uL RBC 2.09 L 2.33 L (4.40-5.60) X 10*6/uL Hgb 6.1 L* 6.8 L* (13.0-17.0) g/dL Hct 17.1 L* 19.8 L* (39.6-50.0) % Plt Count 46 L 86 L D (140-440) X 10*3/uL Plt Count Comment A Blast Cells % 4 H* % Neutrophils # (Manual) 0.04 L* 0.18 L* (2.00-8.90) X 10*3/uL Lymphocytes # (Manual) 0.46 L 0.70 L (0.90-5.00) X 10*3/uL Monocytes # (Manual) 0.02 L (0.20-1.00) X 10*3/uL Eosinophils # (Manual) 0 L (0.04-0.35) X 10*3/uL Metamyelocytes # (Man) 0.01 H (0) k/uL Blast Cells # (Man) 0.04 H (0) k/uL Sodium (137-145) mmol/L Chloride (98-107) mmol/L Carbon Dioxide (22-30) mmol/L Uric Acid (3.5-8.5) mg/dL Calcium (8.4-10.2) mg/dL Total Protein (6.3-8.2) g/dL Albumin (3.5-5.0) g/dL Crossmatch See Detail 03/23/22 Range/Units 06:38 WBC (4.50-10.00) X 10*3/uL RBC (4.40-5.60) X 10*6/uL Hgb (13.0-17.0) g/dL Hct (39.6-50.0) % Plt Count (140-440) X 10*3/uL Plt Count Comment Blast Cells % % Neutrophils # (Manual) (2.00-8.90) X 10*3/uL Lymphocytes # (Manual) (0.90-5.00) X 10*3/uL Monocytes # (Manual) (0.20-1.00) X 10*3/uL Eosinophils # (Manual) (0.04-0.35) X 10*3/uL Metamyelocytes # (Man) (0) k/uL Blast Cells # (Man) (0) k/uL Sodium 135 L (137-145) mmol/L Chloride 109 H (98-107) mmol/L Carbon Dioxide 19 L (22-30) mmol/L Uric Acid 2.2 L (3.5-8.5) mg/dL Calcium 7.4 L (8.4-10.2) mg/dL Total Protein 5.0 L (6.3-8.2) g/dL Albumin 2.6 L (3.5-5.0) g/dL Crossmatch Microbiology - Last 24 Hours (Table) 03/20/22 09:54 Blood Culture - Preliminary Blood No Growth after 72 hours 03/20/22 09:27 Blood Culture - Preliminary Blood No Growth after 72 hours Assessment and Plan (1) AML (acute myelogenous leukemia) Narrative/Plan: New Diagnosis Status Post Induction with 7 plus 3 Antiemetics Daily labs Close monitoring Cytogenics with one favorable, one not favorable. Will check Bone Marrow biopsy for induction response and if remission arrange for [place] transplant appointment., Current Visit: Yes Status: Acute Priority: High Code(s): C92.00 - ACUTE MYELOBLASTIC LEUKEMIA, NOT HAVING ACHIEVED REMISSION SNOMED Code(s): 18763274 (2) Leukocytosis Current Visit: Yes Status: Acute Priority: High Code(s): D72.829 - ELEVATED WHITE BLOOD CELL COUNT, UNSPECIFIED SNOMED Code(s): 571334890 (3) Thrombocytopenia Current Visit: Yes Status: Acute Code(s): D69.6 - THROMBOCYTOPENIA, UNSPECIFIED SNOMED Code(s): 312038165 (4) Coagulopathy Narrative/Plan: Monitor closely with active COVID Current Visit: Yes Status: Acute Code(s): D68.9 - COAGULATION DEFECT, UNSPECIFIED SNOMED Code(s): 90826654 (5) Neutropenic fever Narrative/Plan: T-Max 100.3 Covid Positive Current Visit: Yes Status: Acute Priority: High Code(s): D70.9 - NEUTROPENIA, UNSPECIFIED; R50.81 - FEVER PRESENTING WITH CONDITIONS CLASSIFIED ELSEWHERE SNOMED Code(s): 792987531 (6) Pancytopenia due to antineoplastic chemotherapy Current Visit: Yes Status: Acute Priority: High Code(s): D61.810 - ANTINEOPLASTIC CHEMOTHERAPY INDUCED PANCYTOPENIA; T45.1X5A - ADVERSE EFFECT OF ANTINEOPLASTIC AND IMMUNOSUP DRUGS, INIT SNOMED Code(s): 623522036529672 (7) COVID-19 Narrative/Plan: Aggressive supportive care ID following closely Monitor closely for DIC and respiratory maintenance Increase Vitamin D3 dosage and add Zinc Current Visit: Yes Status: Acute Code(s): U07.1 - COVID-19 SNOMED Code(s): 635126164 Plan: Monitor IgG Levels, IVIG if less than 600 in high risk acutely ill neutropenic patient with COVID NOw with PLatlets above 50K can initiate Ibuprofen to assist with fever Dr. Waller: I have completed the full history and physical and agree with above dictation, dictated as a ascribe
[2022-03-23] MEDS: IBUPROFEN 400 MG TAB PO PRN (12:54)
--- NOTE | 2022-03-23 13:06 | XR ---
EXAMINATION TYPE: XR chest 1V portable DATE OF EXAM: 03/23/2022 Comparison: 03/20/2022 Clinical History: 26-year-old male Worsening oxygen level Findings: Heart limits of normal in size, likely accentuated by AP portable technique. Aorta and pulmonary vasc ulature are within normal limits. No consolidation or pleural effusion. Impression: No acute cardiopulmonary process.
--- NOTE | 2022-03-23 14:10 | CDI ---
Documentation Clarification Form Date: 03/23/2022 01:24:54 PM From: Felisa Osorio RN, CCDS Admit Date: 02/25/2022 12:59:00 PM Patient Name: Akira Sultana Visit Number: [id number] Discharge Date: ATTENTION: The Clinical Documentation Specialists (CDI) and [facility] Coding Staff appreciate your assistance in clarifying documentation. Please respond to the clarification below the line at the bottom and electronically sign. The CDI & [facility] Coding staff will review the response and follow-up if needed. Please note: Queries are made part of the Legal Health Record. If you have any questions, please contact the author of this message via ITS. Dr. Mary Singer The patient presented on 02/25/22 with abnormal low platelets. Additional clarification regarding the etiology/cause of the clinical indicators is requested. History/Risk Factors: Pneumonia, Acute myelogenous leukemia Clinical Indicators: 26-year-old male present with petechial on the chest and arms bilaterally. He spiked a fever of 100.9 on 03/11/22 and fevers have off and on. On 03/20 he was COVID positive. 02/25 Labs: WBC 25.5, HGB 12.0, 34.5 PLT 356 Blast cells 38 03/12 Blood culture: Staph hominis (Gram Positive cocci) 03/14 temp 101.5 (AX) 03/15 VS: 127/74 103 16 102.8 99% RA 03/19 VS: 121/76 107 20 101.7 03/23 VS: 124/71 122 15 103.1 94 % RA 03/23 Labs: WBC 1.1, RBC 2.33, HGB 6.8 HCT 19.8 PLT 86 Blast cells 4 Neutrophils 0.18, Uric Acid 2.2 03/20 Covid Detected, PICC Catheter Tip Culture: No growth after 48 hrs Treatment: Cardiac Telemetry monitoring Acyclovir 400 MG PO BID Vancomycin per orders (PTD) 03/11-03/20 Diflucan 100 MG PO DAILY 03/02-03/20 Cefepime HCL 2 GM IVPB Q 8 HRS 03/11-03/20 Aztreonam 2 GM IVPB Q8 Hrs 03/21-03/22 ID Consult: Febrile neutropenia in this patient with acute myelogenous leukemia. In your professional opinion, please clarify if these findings signify one of the following conditions: [ ] Febrile Neutropenia with Sepsis, Staph hominis bacteremia [ ] Febrile neutropenia with Sepsis, staph homonis bacteremia, possible Covid Sepsis [ x] Sepsis ruled out [ ] Other, please specify [ ] Unable to determine SIRS Criteria: 2 or more of the following may indicate SIRS -Temperature < 96.8F (36C) or > 101.0F (38.3C) -Heart Rate > 90 bpm -Respiratory Rate > 20 breaths/min or PaCO2 < 32 mmHg -White Blood Cell Count > 12,000 or < 4,000 cells/mm3 or > 10% bands (Template Last Reviewed: November 2020) MTDD
[2022-03-23 14:55] LABS: INR 1.2 (<1.2); Prothrombin Time 12.9 sec (9.0-12.0)
[2022-03-23] MEDS: guaiFENesin SYRUP 100MG/5ML 200 MG/10 ML CUP PO PRN ×2 (16:41→22:37)
[2022-03-23] MEDS: BENZONATATE 100 MG CAP PO PRN ×2 (16:41→22:37)
[2022-03-23] MEDS: PANTOPRAZOLE 40 MG TABLET PO SCH (17:39)
[2022-03-23] MEDS: OLANZapine 5 MG TAB PO SCH (19:51)
[2022-03-23] MEDS: LORazepam 1 MG TAB PO PRN (19:51)
[2022-03-23] MEDS: MAGNESIUM SULFATE-D5W PMX 1 GM in DEXTROSE/WATER 1 100ML.BAG IVPB SCH ×2 (19:53→21:43)
[2022-03-23] MEDS: SENNOSIDES 8.6 MG TAB PO SCH (21:44)
[2022-03-24] MEDS: AZTREONAM 2 GM in SODIUM CHLORIDE 0.9% 100 ML IVPB SCH ×2 (03:28→12:12)
[2022-03-24] MEDS: SODIUM CHLORIDE 0.9% 1,000 ML IV SCH ×2 (03:29→15:40)
[2022-03-24] MEDS: IBUPROFEN 400 MG TAB PO PRN (03:35)
[2022-03-24] MEDS: ACETAMINOPHEN TAB 325 MG TAB PO PRN ×2 (04:53→21:38)
[2022-03-24] MEDS: VANCOMYCIN 2,000 MG in SODIUM CHLORIDE 0.9% 500 ML 500 ML IVPB SCH ×3 (06:20→22:54)
[2022-03-24] MEDS: SALT AND SODA MOUTHWASH 1,000 ML PO SCH ×4 (06:21→21:32)
[2022-03-24] MEDS: CHOLESTYRAMINE (WITH SUGAR) 4 GM PACKET PO SCH ×4 (07:11→21:33)
[2022-03-24] MEDS: polyethylene glycoL 3350 17 GM POWD.PACK PO SCH (07:11)
[2022-03-24 09:17] LABS: Phosphorus 1.7 mg/dL (2.4-5.1)
[2022-03-24 09:22] LABS: INR 1.18 (0.90-1.11); Prothrombin Time 13.2 sec (9.9-11.9)
[2022-03-24 09:28] LABS: African American GFR (CKD) 138.6 (60.0-200.0); Albumin 2.8 g/dL (3.8-4.9); Albumin/Globulin Ratio 1.36 (1.60-3.17); Anion Gap 11.5 mmol/L (10.00-18.00); BUN/Creat Ratio 6.71 Ratio (12.00-20.00); Blood Urea Nitrogen 5.8 mg/dL (9.0-27.0); Calcium 7.3 mg/dL (8.7-10.3); Carbon Dioxide 19.9 mmol/L (20.0-27.5); Globulin 2.1 g/dL (1.6-3.3); Non-African American GFR(CKD) 119.6 (60.0-200.0); Potassium 3.1 mmol/L (3.5-5.5); Total Bilirubin 0.4 mg/dL (0.30-1.20); Total Protein 4.8 g/dL (6.2-8.2)
[2022-03-24] MEDS: allopurinoL 300 MG TAB PO SCH (09:28)
[2022-03-24] MEDS: ZINC SULFATE 220 MG CAP PO SCH (09:28)
[2022-03-24] MEDS: ACYCLOVIR 200 MG CAP PO SCH ×2 (09:28→21:32)
[2022-03-24] MEDS: CHOLECALCIFEROL 25 MCG (1000 IU) TABLET PO SCH (09:28)
[2022-03-24] MEDS: PANTOPRAZOLE 40 MG TABLET PO SCH ×2 (09:28→16:57)
[2022-03-24] MEDS: LORATADINE 10 MG TAB PO SCH (09:28)
[2022-03-24] MEDS: CYANOCOBALAMIN 500 MCG TAB PO SCH (09:28)
[2022-03-24] MEDS: VORICONAZOLE 500 MG in SODIUM CHLORIDE 0.9% 250 ML IVPB SCH ×2 (09:28→22:54)
[2022-03-24] MEDS: FOLIC ACID 1 MG TAB PO SCH (09:28)
[2022-03-24] MEDS: CLOTRIMAZOLE/BETAMETH 1-0.05% CREAM 45 GM TUBE TOPICAL SCH ×2 (09:29→21:33)
[2022-03-24] MEDS: diphenhydrAMINE 2% CREAM 28.4 GM TUBE TOPICAL SCH ×2 (09:29→21:33)
[2022-03-24] MEDS: guaiFENesin SYRUP 100MG/5ML 200 MG/10 ML CUP PO PRN ×3 (09:35→21:35)
[2022-03-24] MEDS: BENZONATATE 100 MG CAP PO PRN ×3 (09:35→21:35)
[2022-03-24] MEDS ORDERED: POTASSIUM CHLORIDE ER 20 MEQ TAB.ER PO ONE (10:00)
--- NOTE | 2022-03-24 10:02 | P.PN ---
Subjective Chart was reviewed patient was seen and examined. Patient is generally doing well. He denies any respiratory or GI complaints or headache. He had fever last night but otherwise he is generally feeling well this morning. Objective - Vital Signs Vital signs: Vital Signs Temp 99.8 F H 03/24/22 06:22 Pulse 103 H 03/24/22 06:22 Resp 20 03/24/22 03:48 BP 135/76 03/24/22 03:48 Pulse Ox 96 03/24/22 03:48 FiO2 Intake & Output 03/23/22 03/24/22 03/24/22 18:59 06:59 18:59 Intake Total 725 2900 Balance 725 2900 Intake: Intake, IV Titration 725 1750 Amount Aztreonam 2 gm In Sodium 200 Chloride 0.9% 100 ml @ 33 .3 mls/hr IVPB Q8H [facility] Rx #:[id number] Magnesium Sulfate-D5w Pmx 200 1 gm In Dextrose/Water 1 100ml.bag @ 100 mls/hr IVPB Q1H [facility] Rx#: [id number] Sodium Chloride 0.9% 1, 225 600 000 ml @ 75 mls/hr IV . [id number] [facility] Rx#:[id number] Vancomycin 2,000 mg In 500 500 Sodium Chloride 0.9% 500 ml 500 ml @ 167 mls/hr IVPB Q8H [facility] Rx#: [id number] Voriconazole 500 mg In 250 Sodium Chloride 0.9% 250 ml @ 125 mls/hr IVPB Q12HR [facility] Rx#:[id number] Oral 840 Blood Product 0 310 Rc Irr As1 Unit 0 310 [id number] Other: Voiding Method Toilet Toilet # Voids 2 2 - Exam Awake alert oriented 3, no acute distress Head and neck: Anicteric sclera, extraocular movements intact, no facial asymmetry, oropharyngeal mucosa is moist without any lesions, neck is supple without rigidity, no neck masses or neck vein distention Heart: Regular rhythm and rate, S1, S2; no murmurs rubs or gallops Lungs: Breath sounds present bilateral, no wheezing, rhonchi or crackles Abdomen: Bowel sounds present throughout, abdomen is soft, nontender, nondistended, no involuntary guarding, no hernias or organomegaly, no flank tenderness Extremities: No peripheral edema, no cyanosis, warm well perfused with palpable dorsalis pedis pulses bilateral and good capillary refill, without joint swe lling or deformities - Constitutional General appearance: Present: no acute distress - Labs CBC & Chem 7: 03/23/22 06:38 03/24/22 06:24 Labs: Abnormal Lab Results - Last 24 Hours (Table) 03/22/22 03/23/22 03/24/22 Range/Units 13:40 06:38 06:24 PT 12.9 H (9.0-12.0) sec INR 1.2 H (<1.2) Potassium 3.1 L (3.5-5.5) mmol/L Carbon Dioxide 19.9 L (20.0-27.5) mmol/L BUN 5.8 L (9.0-27.0) mg/dL BUN/Creatinine Ratio 6.71 L (12.00-20.00) Ratio Calcium 7.3 L (8.7-10.3) mg/dL Phosphorus 1.7 L (2.4-5.1) mg/dL Lactate Dehydrogenase 318 H (120-246) U/L Total Protein 4.8 L (6.2-8.2) g/dL Albumin 2.8 L (3.8-4.9) g/dL Albumin/Globulin Ratio 1.36 L (1.60-3.17) g/dL Crossmatch See Detail 03/24/22 Range/Units 06:24 PT 13.2 H (9.0-12.0) sec INR 1.18 H (<1.2) Potassium (3.5-5.5) mmol/L Carbon Dioxide (20.0-27.5) mmol/L BUN (9.0-27.0) mg/dL BUN/Creatinine Ratio (12.00-20.00) Ratio Calcium (8.7-10.3) mg/dL Phosphorus (2.4-5.1) mg/dL Lactate Dehydrogenase (120-246) U/L Total Protein (6.2-8.2) g/dL Albumin (3.8-4.9) g/dL Albumin/Globulin Ratio (1.60-3.17) g/dL Crossmatch Microbiology - Last 24 Hours (Table) 03/20/22 09:54 Blood Culture - Preliminary Blood No Growth after 72 hours 03/20/22 09:27 Blood Culture - Preliminary Blood No Growth after 72 hours Assessment and Plan Assessment: #Febrile neutropenia With staph hominis bacteremia PICC line removed Continue per infectious disease recommendations Currently on vancomycin, aztreonam, voriconazole and acicular White blood cell count improving, neutrophils count improving, hemoglobins and platelets stable Continue per hematology recommendations Repeat blood cultures: No growth to date #Acute myelogenous leukemia Completed induction chemotherapy Hematology following #Hypokalemia Replacement ordered Magnesium in normal range today DVT prophylaxis: SCDs
[2022-03-24 10:25] LABS: HCT 20.2 % (39.6-50.0); HGB 7.1 g/dL (13.0-17.0); MCH 29.8 pg (27.0-32.0); MCHC 35.1 g/dL (32.0-37.0); MCV 84.9 fL (80.0-97.0); Mean Platelet Volume 10.6 fL (9.5-12.2); Platelet Count 153 X 10*3/uL (140-440); RBC 2.38 X 10*6/uL (4.40-5.60); RDW 14.4 % (11.5-14.5); WBC 2.13 X 10*3/uL (4.50-10.00)
[2022-03-24 10:27] LABS: Basophils # (M) 0 X 10*3/uL (0.00-0.10); Eosinophils # (M) 0 X 10*3/uL (0.04-0.35); Monocytes # (M) 0.43 X 10*3/uL (0.20-1.00); Myelocytes % 5 % (0-0); Neutrophils % (M) 28 %; Nucleated Red Blood Cells 1 /100 WBCS
[2022-03-24] MEDS: BENZOCAINE/MENTHOL LOZENG 1 EACH LOZENGE MUCOUS MEM PRN ×3 (10:59→23:19)
--- NOTE | 2022-03-24 15:16 | P.PN ---
Subjective Progress Note Date: 03/24/22 Principal diagnosis: Confirmed AML T max fevers 103 over night, Oxygenation appears stable, BP are stable. Awaiting CBC today Objective - Vital Signs Vital signs: Vital Signs Temp 99.8 F H 03/24/22 06:22 Pulse 103 H 03/24/22 06:22 Resp 20 03/24/22 03:48 BP 135/76 03/24/22 03:48 Pulse Ox 96 03/24/22 03:48 FiO2 Intake & Output 03/23/22 03/24/22 03/24/22 18:59 06:59 18:59 Intake Total 725 2900 Balance 725 2900 Intake: Intake, IV Titration 725 1750 Amount Aztreonam 2 gm In Sodium 200 Chloride 0.9% 100 ml @ 33 .3 mls/hr IVPB Q8H [facility] Rx #:[id number] Magnesium Sulfate-D5w Pmx 200 1 gm In Dextrose/Water 1 100ml.bag @ 100 mls/hr IVPB Q1H [facility] Rx#: [id number] Sodium Chloride 0.9% 1, 225 600 000 ml @ 75 mls/hr IV . [id number] [facility] Rx#:[id number] Vancomycin 2,000 mg In 500 500 Sodium Chloride 0.9% 500 ml 500 ml @ 167 mls/hr IVPB Q8H [facility] Rx#: [id number] Voriconazole 500 mg In 250 Sodium Chloride 0.9% 250 ml @ 125 mls/hr IVPB Q12HR [facility] Rx#:[id number] Oral 840 Blood Product 0 310 Rc Irr As1 Unit 0 310 [id number] Other: Voiding Method Toilet Toilet # Voids 2 2 - Exam - EENT Eyes: EOMI ENT: NA/AT - Respiratory Respiratory: bilateral: CTA - Cardiovascular Rhythm: regular - Gastrointestinal General gastrointestinal: soft - Integumentary Integumentary: pale, Rash papular - Neurologic Neurologic: CNII-XII intact - Musculoskeletal Musculoskeletal: generalized weakness, strength equal bilaterally - Psychiatric Psychiatric: A&O x's 3, appropriate affect, intact judgment & insight - Labs CBC & Chem 7: 03/24/22 06:24 03/24/22 06:24 Labs: Abnormal Lab Results - Last 24 Hours (Table) 03/22/22 03/23/22 Range/Units 13:40 06:38 PT 12.9 H (9.0-12.0) sec INR 1.2 H (<1.2) Crossmatch See Detail Microbiology - Last 24 Hours (Table) 03/20/22 09:54 Blood Culture - Preliminary Blood No Growth after 72 hours 03/20/22 09:27 Blood Culture - Preliminary Blood No Growth after 72 hours Assessment and Plan (1) AML (acute myelogenous leukemia) Narrative/Plan: New Diagnosis Status Post Induction with 7 plus 3 Antiemetics Daily labs Close monitoring Cytogenics with one favorable, one not favorable. Will check Bone Marrow biopsy for induction response and if remission arrange for downtown transplant appointment., Current Visit: Yes Status: Acute Priority: High Code(s): C92.00 - ACUTE MYELOBLASTIC LEUKEMIA, NOT HAVING ACHIEVED REMISSION SNOMED Code(s): 80554793 (2) Leukocytosis Narrative/Plan: Secondary to AML, Current Visit: Yes Status: Acute Priority: High Code(s): D72.829 - ELEVATED WHITE BLOOD CELL COUNT, UNSPECIFIED SNOMED Code(s): 184675180 (3) Thrombocytopenia Narrative/Plan: NO ASA, AC therapy, NSAIDS. Transfusions with Irradiated blood products only. >10K Monitor closely Improving daily Recovered completely able to take ibuprofen for fever in addition to tylenol Current Visit: Yes Status: Acute Code(s): D69.6 - THROMBOCYTOPENIA, UNSPECIFIED SNOMED Code(s): 906631730 (4) Coagulopathy Narrative/Plan: Monitor closely with active COVID Current Visit: Yes Status: Acute Code(s): D68.9 - COAGULATION DEFECT, UNSPECIFIED SNOMED Code(s): 50884222 (5) Neutropenic fever Narrative/Plan: T-Max 103.3 Covid Positive Current Visit: Yes Status: Acute Priority: High Code(s): D70.9 - NEUTROPENIA, UNSPECIFIED; R50.81 - FEVER PRESENTING WITH CONDITIONS CLASSIFIED ELSEWHERE SNOMED Code(s): 274093184 (6) Pancytopenia due to antineoplastic chemotherapy Current Visit: Yes Status: Acute Priority: High Code(s): D61.810 - ANTINEOPLASTIC CHEMOTHERAPY INDUCED PANCYTOPENIA; T45.1X5A - ADVERSE EFFECT OF ANTINEOPLASTIC AND IMMUNOSUP DRUGS, INIT SNOMED Code(s): 649445255648825 (7) COVID-19 Narrative/Plan: Aggressive supportive care ID following closely Monitor closely for DIC and respiratory maintenance Continue Care from ID, cont abx, cont, Vitamin D3 dosage and add Zinc Current Visit: Yes Status: Acute Code(s): U07.1 - COVID-19 SNOMED Code(s): 305320635 Plan: Monitor IgG Levels, IVIG if less than 600 in high risk acutely ill neutropenic patient with COVID Await CBC today Continue Aggressive supportive care Increase protein
--- NOTE | 2022-03-24 15:42 | P.PN ---
Subjective Progress Note Date: 03/23/22 Principal diagnosis: Febrile neutropenia Patient is a 26-year-old male with the acute myelogenous leukemia admitted to the hospital for induction of chemotherapy patient did have right upper extremity PICC line for chemotherapy developing a fever. On today's evaluation that is 03/23/2022, patient has been running a fever today as high as 10 3F, patient is breathing comfortably on room air, the patient denies having any chest pain s,hortness of breath and the patient did have minimal cough no nausea no vomiting no abdominal pain and no diarrhea Objective - Vital Signs Vital signs: Vital Signs Temp 101.2 F H 03/23/22 14:22 Pulse 122 H 03/23/22 12:07 Resp 15 03/23/22 12:07 BP 124/71 03/23/22 12:07 Pulse Ox 94 L 03/23/22 12:07 FiO2 Intake & Output 03/22/22 03/23/22 03/23/22 18:59 06:59 18:59 Intake Total 1350 3050 Balance 1350 3050 Weight 115.666 kg Intake: Intake, IV Titration 1350 1400 Amount Aztreonam 2 gm In Sodium 100 100 Chloride 0.9% 100 ml @ 33 .3 mls/hr IVPB Q8H [facility] Rx #:[id number] Sodium Chloride 0.9% 1, 750 800 000 ml @ 75 mls/hr IV . [id number] [facility] Rx#:[id number] Vancomycin 2,000 mg In 500 500 Sodium Chloride 0.9% 500 ml 500 ml @ 167 mls/hr IVPB Q8H [facility] Rx#: [id number] Oral 1340 Blood Product 0 310 Rc Irr As1 Unit 0 310 [id number] Other: Voiding Method Toilet Toilet # Voids 1 1 # Bowel Movements 1 - Exam GENERAL DESCRIPTION: A middle-age male lying in bed in no distress RESPIRATORY SYSTEM: Unlabored breathing , decreased breath sounds at bases HEART: S1 S2 regular rate and rhythm , ABDOMEN: Soft , no tenderness , left groin with mostly bruising no vesicles SKIN: Maculopapular rash to the trunk EXTREMITIES: No edema feet - Labs CBC & Chem 7: 03/24/22 06:24 03/24/22 06:24 Labs: Abnormal Lab Results - Last 24 Hours (Table) 03/22/22 03/23/2222 Range/Units 13:40 06:38 06:38 WBC 1.1 L* (3.8-10.6) k/uL RBC 2.33 L (4.30-5.90) m/uL Hgb 6.8 L* (13.0-17.5) gm/dL Hct 19.8 L* (39.0-53.0) % Plt Count 86 L D (150-450) k/uL Blast Cells % 4 H* % Neutrophils # (Manual) 0.18 L* (1.3-7.7) k/uL Lymphocytes # (Manual) 0.70 L (1.0-4.8) k/uL Metamyelocytes # (Man) 0.01 H (0) k/uL Blast Cells # (Man) 0.04 H (0) k/uL PT 12.9 H (9.0-12.0) sec INR 1.2 H (<1.2) Sodium (137-145) mmol/L Chloride (98-107) mmol/L Carbon Dioxide (22-30) mmol/L Uric Acid (3.5-8.5) mg/dL Calcium (8.4-10.2) mg/dL Total Protein (6.3-8.2) g/dL Albumin (3.5-5.0) g/dL Crossmatch See Detail 03/23/22 Range/Units 06:38 WBC (3.8-10.6) k/uL RBC (4.30-5.90) m/uL Hgb (13.0-17.5) gm/dL Hct (39.0-53.0) % Plt Count (150-450) k/uL Blast Cells % % Neutrophils # (Manual) (1.3-7.7) k/uL Lymphocytes # (Manual) (1.0-4.8) k/uL Metamyelocytes # (Man) (0) k/uL Blast Cells # (Man) (0) k/uL PT (9.0-12.0) sec INR (<1.2) Sodium 135 L (137-145) mmol/L Chloride 109 H (98-107) mmol/L Carbon Dioxide 19 L (22-30) mmol/L Uric Acid 2.2 L (3.5-8.5) mg/dL Calcium 7.4 L (8.4-10.2) mg/dL Total Protein 5.0 L (6.3-8.2) g/dL Albumin 2.6 L (3.5-5.0) g/dL Crossmatch Microbiology - Last 24 Hours (Table) 03/20/22 09:54 Blood Culture - Preliminary Blood No Growth after 72 hours 03/20/22 09:27 Blood Culture - Preliminary Blood No Growth after 72 hours Assessment and Plan (1) Neutropenic fever Current Visit: Yes Status: Acute Priority: High Code(s): D70.9 - NEUTROPENIA, UNSPECIFIED; R50.81 - FEVER PRESENTING WITH CONDITIONS CLASSIFIED ELSEWHERE SNOMED Code(s): 730174259 Plan: 1patient with a febrile neutropenia in this patient with acute myelogenous leukemia admitted to the hospital for induction of chemotherapy 2patient blood cultures came back positive with gram-positive cocci which has been finalized as coagulase negative staph, keeping in mind his persistent fever patient PICC line was discontinued, the patient also have CT of the chest which did not show any pneumonia 3-patient with a positive covid test mild URI symptoms chest x-ray has been negative for acute infiltrate, and is not hypoxic did review mostly supportive with zinc ascorbic acid did not qualify for dexamethasone or Remdisivir 4- patient did develop a rash which was thought to be related to cefepime which has been discontinued. 5patient is currently being treated with vancomycin and Azactam and antifungal has been switched over to voriconazole because of his persistent fever and will monitor clinical course closely Time with Patient: Less than 30
--- NOTE | 2022-03-24 15:44 | P.PN ---
Subjective Progress Note Date: 03/24/22 Principal diagnosis: Febrile neutropenia Patient is a 26-year-old male with the acute myelogenous leukemia admitted to the hospital for induction of chemotherapy patient did have right upper extremity PICC line for chemotherapy developing a fever. On today's evaluation that is 03/24/2022, patient overall fever pattern has improved and is afebrile this morning, the patient is breathing comfortably on room air and denies any chest pain shortness of breath or any worsening cough no nausea no vomiting no abdominal pain and no diarrhea Objective - Vital Signs Vital signs: Vital Signs Temp 99.0 F 03/24/22 12:34 Pulse 105 H 03/24/22 12:34 Resp 16 03/24/22 12:34 BP 135/71 03/24/22 12:34 Pulse Ox 97 03/24/22 12:34 FiO2 Intake & Output 03/23/22 03/24/22 03/24/22 18:59 06:59 18:59 Intake Total 725 2900 Balance 725 2900 Intake: Intake, IV Titration 725 1750 Amount Aztreonam 2 gm In Sodium 200 Chloride 0.9% 100 ml @ 33 .3 mls/hr IVPB Q8H [facility] Rx #:[id number] Magnesium Sulfate-D5w Pmx 200 1 gm In Dextrose/Water 1 100ml.bag @ 100 mls/hr IVPB Q1H [facility] Rx#: [id number] Sodium Chloride 0.9% 1, 225 600 000 ml @ 75 mls/hr IV . [id number] [facility] Rx#:[id number] Vancomycin 2,000 mg In 500 500 Sodium Chloride 0.9% 500 ml 500 ml @ 167 mls/hr IVPB Q8H [facility] Rx#: [id number] Voriconazole 500 mg In 250 Sodium Chloride 0.9% 250 ml @ 125 mls/hr IVPB Q12HR [facility] Rx#:[id number] Oral 840 Blood Product 0 310 Rc Irr As1 Unit 0 310 [id number] Other: Voiding Method Toilet Toilet Toilet # Voids 2 2 - Exam GENERAL DESCRIPTION: A middle-age male lying in bed in no distress RESPIRATORY SYSTEM: Unlabored breathing , decreased breath sounds at bases HEART: S1 S2 regular rate and rhythm , ABDOMEN: Soft , no tenderness , left groin with mostly bruising no vesicles SKIN: Maculopapular rash to the trunk EXTREMITIES: No edema feet - Labs CBC & Chem 7: 03/24/22 06:24 03/24/22 06:24 Labs: Abnormal Lab Results - Last 24 Hours (Table) 03/22/22 03/23/22 03/24/22 Range/Units 13:40 06:38 06:24 WBC (4.50-10.00) X 10*3/uL RBC (4.40-5.60) X 10*6/uL Hgb (13.0-17.0) g/dL Hct (39.6-50.0) % Myelocytes % (0-0) % Neutrophils # (Manual) (2.00-8.90) X 10*3/uL Eosinophils # (Manual) (0.04-0.35) X 10*3/uL PT 12.9 H (9.0-12.0) sec INR 1.2 H (<1.2) Potassium 3.1 L (3.5-5.5) mmol/L Carbon Dioxide 19.9 L (20.0-27.5) mmol/L BUN 5.8 L (9.0-27.0) mg/dL BUN/Creatinine Ratio 6.71 L (12.00-20.00) Ratio Calcium 7.3 L (8.7-10.3) mg/dL Phosphorus 1.7 L (2.4-5.1) mg/dL Lactate Dehydrogenase 318 H (120-246) U/L Total Protein 4.8 L (6.2-8.2) g/dL Albumin 2.8 L (3.8-4.9) g/dL Albumin/Globulin Ratio 1.36 L (1.60-3.17) g/dL Crossmatch See Detail 03/24/22 03/24/22 Range/Units 06:24 06:24 WBC 2.13 L (4.50-10.00) X 10*3/uL RBC 2.38 L (4.40-5.60) X 10*6/uL Hgb 7.1 L (13.0-17.0) g/dL Hct 20.2 L (39.6-50.0) % Myelocytes % 5 H (0-0) % Neutrophils # (Manual) 0.60 L (2.00-8.90) X 10*3/uL Eosinophils # (Manual) 0 L (0.04-0.35) X 10*3/uL PT 13.2 H (9.0-12.0) sec INR 1.18 H (<1.2) Potassium (3.5-5.5) mmol/L Carbon Dioxide (20.0-27.5) mmol/L BUN (9.0-27.0) mg/dL BUN/Creatinine Ratio (12.00-20.00) Ratio Calcium (8.7-10.3) mg/dL Phosphorus (2.4-5.1) mg/dL Lactate Dehydrogenase (120-246) U/L Total Protein (6.2-8.2) g/dL Albumin (3.8-4.9) g/dL Albumin/Globulin Ratio (1.60-3.17) g/dL Crossmatch Microbiology - Last 24 Hours (Table) 03/20/22 09:54 Blood Culture - Preliminary Blood No Growth after 96 hours 03/20/22 09:27 Blood Culture - Preliminary Blood No Growth after 96 hours Assessment and Plan (1) Neutropenic fever Current Visit: Yes Status: Acute Priority: High Code(s): D70.9 - NEUTROPENIA, UNSPECIFIED; R50.81 - FEVER PRESENTING WITH CONDITIONS CLASSIFIED ELSEWHERE SNOMED Code(s): 734073633 Plan: 1patient with a febrile neutropenia in this patient with acute myelogenous leukemia admitted to the hospital for induction of chemotherapy 2patient blood cultures came back positive with gram-positive cocci which has been finalized as coagulase negative staph, keeping in mind his persistent fever patient PICC line was discontinued, the patient also have CT of the chest which did not show any pneumonia 3-patient with a positive covid test mild URI symptoms chest x-ray has been negative for acute infiltrate, and is not hypoxic did review mostly supportive with zinc ascorbic acid did not qualify for dexamethasone or Remdisivir 4- patient did develop a rash which was thought to be related to cefepime which has been discontinued. 5patient fever has resolved and the patient white count is recovering, patient to continue with vancomycin, Azactam and voriconazole and will monitor clinical course closely Time with Patient: Less than 30
[2022-03-24] MEDS ORDERED: POTASSIUM CHLORIDE ER 20 MEQ TAB.ER PO STA (16:15)
[2022-03-24] MEDS: POTASSIUM PHOSPHATE 10 MMOL in SODIUM CHLORIDE 0.9% 250 ML IV SCH ×2 (18:44→21:31)
[2022-03-24] MEDS: SENNOSIDES 8.6 MG TAB PO SCH (21:33)
[2022-03-24] MEDS: OLANZapine 5 MG TAB PO SCH (21:33)
[2022-03-25] MEDS: SALT AND SODA MOUTHWASH 1,000 ML PO SCH ×5 (00:08→22:08)
[2022-03-25] MEDS: AZTREONAM 2 GM in SODIUM CHLORIDE 0.9% 100 ML IVPB SCH ×4 (01:13→23:45)
[2022-03-25] MEDS: BENZOCAINE/MENTHOL LOZENG 1 EACH LOZENGE MUCOUS MEM PRN ×3 (03:12→14:26)
[2022-03-25] MEDS: guaiFENesin SYRUP 100MG/5ML 200 MG/10 ML CUP PO PRN ×3 (03:12→17:53)
[2022-03-25] MEDS ORDERED: VANCOMYCIN TROUGH DUE 1 EACH MISC MISCELLANE ONE (05:00)
[2022-03-25] MEDS: SODIUM CHLORIDE 0.9% 1,000 ML IV SCH ×2 (06:06→17:55)
[2022-03-25] MEDS: VANCOMYCIN 2,000 MG in SODIUM CHLORIDE 0.9% 500 ML 500 ML IVPB SCH ×3 (06:06→23:45)
[2022-03-25 07:24] LABS: ALT 44 U/L (4-49); AST 33 U/L (17-59); African American GFR (CKD) >90 (>60 ml/min/1.73 sqM); Albumin 2.8 g/dL (3.5-5.0); Alkaline Phosphatase 50 U/L (38-126); Anion Gap 8 mmol/L; Blood Urea Nitrogen 4 mg/dL (9-20); Calcium 7.4 mg/dL (8.4-10.2); Carbon Dioxide 19 mmol/L (22-30); Chloride 113 mmol/L (98-107); Globulin 2.7 g/dL; Glucose 77 mg/dL (74-99); LDH 1084 U/L (313-618); Magnesium 1.9 mg/dL (1.6-2.3); Non-African American GFR(CKD) >90 (>60 ml/min/1.73 sqM); Phosphorus 3.1 mg/dL (2.5-4.5); Potassium 3.7 mmol/L (3.5-5.1); Sodium 140 mmol/L (137-145); Total Bilirubin 0.5 mg/dL (0.2-1.3); Total Protein 5.5 g/dL (6.3-8.2)
[2022-03-25 07:40] LABS: T4, Free (Free Thyroxine) 1.88 ng/dL (0.78-2.19)
[2022-03-25] MEDS: CHOLESTYRAMINE (WITH SUGAR) 4 GM PACKET PO SCH ×4 (08:31→22:05)
[2022-03-25] MEDS: polyethylene glycoL 3350 17 GM POWD.PACK PO SCH (08:32)
[2022-03-25] MEDS: LORATADINE 10 MG TAB PO SCH (08:36)
[2022-03-25] MEDS: BENZONATATE 100 MG CAP PO PRN ×2 (08:37→17:53)
[2022-03-25] MEDS: CHOLECALCIFEROL 25 MCG (1000 IU) TABLET PO SCH (08:37)
[2022-03-25] MEDS: CYANOCOBALAMIN 500 MCG TAB PO SCH (08:37)
[2022-03-25] MEDS: ZINC SULFATE 220 MG CAP PO SCH (08:37)
[2022-03-25] MEDS: ACYCLOVIR 200 MG CAP PO SCH ×2 (08:38→22:07)
[2022-03-25] MEDS: diphenhydrAMINE 2% CREAM 28.4 GM TUBE TOPICAL SCH ×2 (08:38→22:05)
[2022-03-25] MEDS: FOLIC ACID 1 MG TAB PO SCH (08:38)
[2022-03-25] MEDS: allopurinoL 300 MG TAB PO SCH (08:38)
[2022-03-25] MEDS: PANTOPRAZOLE 40 MG TABLET PO SCH ×2 (08:38→17:53)
[2022-03-25] MEDS: CLOTRIMAZOLE/BETAMETH 1-0.05% CREAM 45 GM TUBE TOPICAL SCH ×2 (08:38→22:05)
[2022-03-25] MEDS: ACETAMINOPHEN TAB 325 MG TAB PO PRN ×2 (09:12→19:45)
[2022-03-25] MEDS: VORICONAZOLE 500 MG in SODIUM CHLORIDE 0.9% 250 ML IVPB SCH ×2 (09:15→22:07)
[2022-03-25] MEDS ORDERED: ALPRAZolam 0.5 MG TAB PO PRN (10:26)
[2022-03-25 11:36] LABS: HCT 21.2 % (39.0-53.0); HGB 7.5 gm/dL (13.0-17.5); MCH 30.4 pg (25.0-35.0); MCHC 35.2 g/dL (31.0-37.0); MCV 86.2 fL (80.0-100.0); Mean Platelet Volume 8.3; RBC 2.46 m/uL (4.30-5.90); RDW 15.4 % (11.5-15.5); WBC 2.8 k/uL (3.8-10.6)
[2022-03-25 11:44] LABS: Platelet Count 274 k/uL (150-450)
--- NOTE | 2022-03-25 12:22 | P.PN ---
Subjective Progress Note Date: 03/25/22 Principal diagnosis: Confirmed AML T max fevers 100.3 over night, Oxygenation appears stable, BP are stable. CBC stable, no transfusions needed. He is a bit depressed today, although xanax does help. Objective - Vital Signs Vital signs: Vital Signs Temp 100.3 F H 03/25/22 09:13 Pulse 100 03/25/22 04:40 Resp 18 03/25/22 04:40 BP 132/82 03/25/22 04:40 Pulse Ox 97 03/25/22 07:55 FiO2 Intake & Output 03/24/22 03/25/22 03/25/22 18:59 06:59 18:59 Intake Total 1250 Balance 1250 Intake: Intake, IV Titration 1250 Amount Aztreonam 2 gm In Sodium 100 Chloride 0.9% 100 ml @ 33 .3 mls/hr IVPB Q8H [facility] Rx #:[id number] Sodium Chloride 0.9% 1, 900 000 ml @ 75 mls/hr IV . [id number] [facility] Rx#:[id number] Voriconazole 500 mg In 250 Sodium Chloride 0.9% 250 ml @ 125 mls/hr IVPB Q12HR [facility] Rx#:[id number] Other: Voiding Method Toilet Toilet Toilet # Voids 2 - Exam - EENT Eyes: EOMI ENT: NA/AT - Respiratory Respiratory: bilateral: CTA - Cardiovascular Rhythm: regular - Gastrointestinal General gastrointestinal: soft - Integumentary Integumentary: pale, Rash papular - Neurologic Neurologic: CNII-XII intact - Musculoskeletal Musculoskeletal: generalized weakness, strength equal bilaterally - Psychiatric Psychiatric: A&O x's 3, appropriate affect, intact judgment & insight - Labs CBC & Chem 7: 03/25/22 11:04 03/25/22 06:06 Labs: Abnormal Lab Results - Last 24 Hours (Table) 03/25/22 03/25/22 Range/Units 06:06 11:04 WBC 2.8 L (3.8-10.6) k/uL RBC 2.46 L (4.30-5.90) m/uL Hgb 7.5 L (13.0-17.5) gm/dL Hct 21.2 L (39.0-53.0) % Chloride 113 H (98-107) mmol/L Carbon Dioxide 19 L (22-30) mmol/L BUN 4 L (9-20) mg/dL Creatinine 0.64 L (0.66-1.25) mg/dL Calcium 7.4 L (8.4-10.2) mg/dL Lactate Dehydrogenase 1084 H (313-618) U/L Total Protein 5.5 L (6.3-8.2) g/dL Albumin 2.8 L (3.5-5.0) g/dL Microbiology - Last 24 Hours (Table) 03/20/22 09:54 Blood Culture - Preliminary Blood No Growth after 120 hours 03/20/22 09:27 Blood Culture - Preliminary Blood No Growth after 120 hours Assessment and Plan (1) AML (acute myelogenous leukemia) Narrative/Plan: New Diagnosis Status Post Induction with 7 plus 3 Antiemetics Daily labs Close monitoring Cytogenics with one favorable, one not favorable. Will check Bone Marrow biopsy for induction response and if remission arrange for consultation downtown transplant appointment, there they will determine if transplant is needed and what next treatment steps will entail Blood counts have recovered, as soon as he has recovered from covid will repeat BM biopsy Current Visit: Yes Status: Acute Priority: High Code(s): C92.00 - ACUTE MYELOBLASTIC LEUKEMIA, NOT HAVING ACHIEVED REMISSION SNOMED Code(s): 50269452 (2) Leukocytosis Narrative/Plan: Secondary to AML, Current Visit: Yes Status: Acute Priority: High Code(s): D72.829 - ELEVATED WHITE BLOOD CELL COUNT, UNSPECIFIED SNOMED Code(s): 772736263 (3) Thrombocytopenia Narrative/Plan: NO ASA, AC therapy, NSAIDS. Transfusions with Irradiated blood products only. >10K Monitor closely Improving daily Recovered completely able to take ibuprofen for fever in addition to tylenol Current Visit: Yes Status: Acute Code(s): D69.6 - THROMBOCYTOPENIA, UNSPECIFIED SNOMED Code(s): 463264154 (4) Coagulopathy Narrative/Plan: Monitor closely with active COVID Stable Current Visit: Yes Status: Acute Code(s): D68.9 - COAGULATION DEFECT, UNSPECIFIED SNOMED Code(s): 85445051 (5) Neutropenic fever Narrative/Plan: T-Max 10o.3 Covid Positive ID is monitoring aggressively and closely, we appreciate this Current Visit: Yes Status: Acute Priority: High Code(s): D70.9 - NEUTROPENIA, UNSPECIFIED; R50.81 - FEVER PRESENTING WITH CONDITIONS CLASSIFIED ELSEWHERE SNOMED Code(s): 998912387 (6) Pancytopenia due to antineoplastic chemotherapy Current Visit: Yes Status: Acute Priority: High Code(s): D61.810 - ANTINEOPLASTIC CHEMOTHERAPY INDUCED PANCYTOPENIA; T45.1X5A - ADVERSE EFFECT OF ANTINEOPLASTIC AND IMMUNOSUP DRUGS, INIT SNOMED Code(s): 643013996589168 (7) COVID-19 Narrative/Plan: Aggressive supportive care ID following closely Monitor closely for DIC and respiratory maintenance Continue Care from ID, cont abx, cont Vitamin D3 dosage and Zinc Recheck Igg Current Visit: Yes Status: Acute Code(s): U07.1 - COVID-19 SNOMED Code(s): 572397279 Plan: Monitor IgG Levels, IVIG if less than 600 in high risk acutely ill neutropenic patient with COVID Await CBC today Continue Aggressive supportive care Increase protein intake, discussed with patient mother Xanax over ativan is ok (one or other whichever he prefers) Patient's mother concerned RNs are asking patient about BM transplant, when we are unsure what the next steps will entail. BM transplant team evaluation will be set up after remission is acheived and then at that time we will find out if recommendation for transplant is needed.
[2022-03-25 13:20] LABS: T4, Free (Free Thyroxine) 1.92 ng/dL (0.78-2.19)
[2022-03-25 14:27] LABS: Band Neutrophils % 12 %; Blast Cells # (M) 0.03 k/uL (0); Lymphocytes # (M) 0.78 k/uL (1.0-4.8); Metamyelocytes # (M) 0.11 k/uL (0); Metamyelocytes % 4 %; Monocytes # (M) 0.53 k/uL (0-1.0); Myelocytes # (M) 0.28 k/uL (0); Myelocytes % 10 %; Neutrophils % (M) 28 %; Nucleated Red Blood Cells 0 /100 WBC (0-0); Total Cells Counted 200
[2022-03-25 14:28] LABS: Toxic Granulation Present; Toxic Vacuolation Present
[2022-03-25 14:58] LABS: INR 1.2 (<1.2); Prothrombin Time 12.5 sec (9.0-12.0)
--- NOTE | 2022-03-25 15:03 | P.PN ---
Subjective Progress Note Date: 03/25/22 Principal diagnosis: fever Patient still having low-grade fevers, last temperature 100.3. No other complaint. No chest pain or shortness of breath. No rash. Objective - Vital Signs Vital signs: Vital Signs Temp 98.5 F 03/25/22 12:24 Pulse 104 H 03/25/22 12:24 Resp 18 03/25/22 12:24 BP 120/70 03/25/22 12:24 Pulse Ox 96 03/25/22 12:24 FiO2 Intake & Output 03/24/22 03/25/22 03/25/22 18:59 06:59 18:59 Intake Total 1250 360 Balance 1250 360 Intake: Intake, IV Titration 1250 Amount Aztreonam 2 gm In Sodium 100 Chloride 0.9% 100 ml @ 33 .3 mls/hr IVPB Q8H [facility] Rx #:[id number] Sodium Chloride 0.9% 1, 900 000 ml @ 75 mls/hr IV . [id number] [facility] Rx#:[id number] Voriconazole 500 mg In 250 Sodium Chloride 0.9% 250 ml @ 125 mls/hr IVPB Q12HR [facility] Rx#:[id number] Oral 360 Other: Voiding Method Toilet Toilet Toilet # Voids 2 3 - Exam Constitutional: No acute distress, conversant, pleasant Eyes:Anicteric sclerae, moist conjunctiva, no lid-lag, PERRLA, ENMT: Oropharynx clear, no erythema, exudates Neck: Supple, FROM, no masses, or JVD, No carotid bruits, No thyromegaly Lungs: Clear to auscultation, Clear to percussion, Normal respiratory effort, no accessory muscle use Cardiovascular: Heart regular in rate and rhythm, No murmurs, gallops, or rubs, No peripheral edema Abdominal: Soft, Nontender, no guarding, rebound or rigidity, Normoactive bowel sounds, No hepatomegaly, No splenomegaly, No palpable mass Skin: Normal temperature, tone, texture, turgor, no induration, No subcutaneous nodules, No rash, lesions, No ulcers Extremities: No digital cyanosis, No clubbing, Pedal pulses intact and symmetrical, Radial pulses intact and symmetrical, No calf tenderness Psychiatric: Alert and oriented to person, place and time, appropriate affect, intact judgement Neuro: Muscles Strength 5/5 in all 4 extremities, Sensation to light touch grossly present throughout, Cranial nerves II-XII grossly intact, no focal sensory deficits - Labs CBC & Chem 7: 03/25/22 11:04 03/25/22 06:06 Labs: Abnormal Lab Results - Last 24 Hours (Table) 03/25/22 03/25/22 03/25/22 Range/Units 06:06 11:04 11:04 WBC 2.8 L (3.8-10.6) k/uL RBC 2.46 L (4.30-5.90) m/uL Hgb 7.5 L (13.0-17.5) gm/dL Hct 21.2 L (39.0-53.0) % Blast Cells % 1 H* % Neutrophils # (Manual) 1.10 L (1.3-7.7) k/uL Lymphocytes # (Manual) 0.78 L (1.0-4.8) k/uL Metamyelocytes # (Man) 0.11 H (0) k/uL Myelocytes # (Manual) 0.28 H (0) k/uL Blast Cells # (Man) 0.03 H (0) k/uL PT 12.5 H (9.0-12.0) sec INR 1.2 H (<1.2) Chloride 113 H (98-107) mmol/L Carbon Dioxide 19 L (22-30) mmol/L BUN 4 L (9-20) mg/dL Creatinine 0.64 L (0.66-1.25) mg/dL Calcium 7.4 L (8.4-10.2) mg/dL Lactate Dehydrogenase 1084 H (313-618) U/L Total Protein 5.5 L (6.3-8.2) g/dL Albumin 2.8 L (3.5-5.0) g/dL Microbiology - Last 24 Hours (Table) 03/20/22 09:54 Blood Culture - Preliminary Blood No Growth after 120 hours 03/20/22 09:27 Blood Culture - Preliminary Blood No Growth after 120 hours Assessment and Plan Plan: #Febrile neutropenia With staph hominis bacteremia PICC line removed Continue per infectious disease recommendations Currently on vancomycin, aztreonam, voriconazole and acicular White blood cell count improving, neutrophils count improving, hemoglobins and platelets stable Continue per hematology recommendations Repeat blood cultures: No growth to date #Acute myelogenous leukemia Completed induction chemotherapy Hematology following #Hypokalemia Replaced DVT prophylaxis: SCDs
[2022-03-25 19:59] VITALS: RESP 16
--- NOTE | 2022-03-25 22:00 | P.PN ---
Subjective Progress Note Date: 03/25/22 Principal diagnosis: Febrile neutropenia Patient is a 26-year-old male with the acute myelogenous leukemia admitted to the hospital for induction of chemotherapy patient did have right upper extremity PICC line for chemotherapy developing a fever. On today's evaluation that is 03/25/2022, patient did spike a low-grade fever 100.3F this morning, patient denies any chest pain or shortness of breath or cough no nausea no vomiting no abdominal pain no diarrhea and the patient rash has almost resolved Objective - Vital Signs Vital signs: Vital Signs Temp 100.3 F H 03/25/22 09:13 Pulse 100 03/25/22 04:40 Resp 18 03/25/22 04:40 BP 132/82 03/25/22 04:40 Pulse Ox 97 03/25/22 07:55 FiO2 Intake & Output 03/24/22 03/25/22 03/25/22 18:59 06:59 18:59 Intake Total 1250 Balance 1250 Intake: Intake, IV Titration 1250 Amount Aztreonam 2 gm In Sodium 100 Chloride 0.9% 100 ml @ 33 .3 mls/hr IVPB Q8H [facility] Rx #:[id number] Sodium Chloride 0.9% 1, 900 000 ml @ 75 mls/hr IV . [id number] [facility] Rx#:[id number] Voriconazole 500 mg In 250 Sodium Chloride 0.9% 250 ml @ 125 mls/hr IVPB Q12HR [facility] Rx#:[id number] Other: Voiding Method Toilet Toilet Toilet # Voids 2 - Exam GENERAL DESCRIPTION: A middle-age male lying in bed in no distress RESPIRATORY SYSTEM: Unlabored breathing , decreased breath sounds at bases HEART: S1 S2 regular rate and rhythm , ABDOMEN: Soft , no tenderness EXTREMITIES: No edema feet - Labs CBC & Chem 7: 03/25/22 11:04 03/25/22 06:06 Labs: Abnormal Lab Results - Last 24 Hours (Table) 03/25/22 Range/Units 06:06 Chloride 113 H (98-107) mmol/L Carbon Dioxide 19 L (22-30) mmol/L BUN 4 L (9-20) mg/dL Creatinine 0.64 L (0.66-1.25) mg/dL Calcium 7.4 L (8.4-10.2) mg/dL Lactate Dehydrogenase 1084 H (313-618) U/L Total Protein 5.5 L (6.3-8.2) g/dL Albumin 2.8 L (3.5-5.0) g/dL Microbiology - Last 24 Hours (Table) 03/20/22 09:54 Blood Culture - Preliminary Blood No Growth after 96 hours 03/20/22 09:27 Blood Culture - Preliminary Blood No Growth after 96 hours Assessment and Plan (1) Neutropenic fever Current Visit: Yes Status: Acute Priority: High Code(s): D70.9 - NEUTROPENIA, UNSPECIFIED; R50.81 - FEVER PRESENTING WITH CONDITIONS CLASSIFIED ELSEWHERE SNOMED Code(s): 222930742 Plan: 1patient with a febrile neutropenia in this patient with acute myelogenous leukemia admitted to the hospital for induction of chemotherapy and is day 10 of induction therapy patient did have a right upper arm PICC line which was placed this admission on his symptoms of nosebleed but no other obvious signs and symptoms of infection and the work-up has been negative so far with a negative chest x-ray negative UA abdominal soft frontal examination CT of the brain with left maxillary sinusitis however CT of the sinuses did not show any evidence of sinusitis. 2patient blood cultures came back positive with gram-positive cocci which has been finalized as coagulase negative staph, keeping in mind his persistent fever patient PICC line was discontinued, the patient also have CT of the chest which did not show any pneumonia 3-patient staph epi was sensitive to cefazolin and the patient was continued on cefepime however the patient has not developed a generalized rash which could be related to cefepime, cefepime was discontinued and the patient is currently covered with vancomycin, Azactam and voriconazole still running a low-grade feve r and possible mean reconstitution he will check his inflammatory markers with a.m. lab and monitor clinical course closely Time with Patient: Less than 30
[2022-03-25] MEDS: SENNOSIDES 8.6 MG TAB PO SCH (22:05)
[2022-03-25] MEDS: OLANZapine 5 MG TAB PO SCH (22:07)
[2022-03-25] MEDS: CHOLECALCIFEROL 125 MCG (5000 IU) TABLET PO SCH (23:44)
[2022-03-26] MEDS: SALT AND SODA MOUTHWASH 1,000 ML PO SCH ×5 (00:29→22:04)
[2022-03-26] MEDS: VANCOMYCIN 2,000 MG in SODIUM CHLORIDE 0.9% 500 ML 500 ML IVPB SCH ×3 (06:04→21:20)
[2022-03-26] MEDS: ACYCLOVIR 200 MG CAP PO SCH ×2 (08:57→21:19)
[2022-03-26] MEDS: SODIUM CHLORIDE 0.9% 1,000 ML IV SCH ×2 (08:57→23:43)
[2022-03-26] MEDS: CHOLECALCIFEROL 125 MCG (5000 IU) TABLET PO SCH (09:00)
[2022-03-26] MEDS: BENZONATATE 100 MG CAP PO PRN ×2 (09:00→21:19)
[2022-03-26] MEDS: CYANOCOBALAMIN 500 MCG TAB PO SCH (09:00)
[2022-03-26] MEDS: guaiFENesin SYRUP 100MG/5ML 200 MG/10 ML CUP PO PRN ×2 (09:00→21:19)
[2022-03-26] MEDS: FOLIC ACID 1 MG TAB PO SCH (09:01)
[2022-03-26] MEDS: allopurinoL 300 MG TAB PO SCH (09:01)
[2022-03-26] MEDS: LORATADINE 10 MG TAB PO SCH (09:01)
[2022-03-26] MEDS: PANTOPRAZOLE 40 MG TABLET PO SCH ×2 (09:01→16:45)
[2022-03-26] MEDS: diphenhydrAMINE 2% CREAM 28.4 GM TUBE TOPICAL SCH ×2 (09:02→21:19)
[2022-03-26] MEDS: CHOLESTYRAMINE (WITH SUGAR) 4 GM PACKET PO SCH ×4 (09:02→21:19)
[2022-03-26] MEDS: CLOTRIMAZOLE/BETAMETH 1-0.05% CREAM 45 GM TUBE TOPICAL SCH ×2 (09:02→21:19)
[2022-03-26] MEDS: ZINC SULFATE 220 MG CAP PO SCH (09:04)
[2022-03-26] MEDS: SENNOSIDES 8.6 MG TAB PO SCH (09:06)
[2022-03-26] MEDS: polyethylene glycoL 3350 17 GM POWD.PACK PO SCH (09:06)
[2022-03-26] MEDS: AZTREONAM 2 GM in SODIUM CHLORIDE 0.9% 100 ML IVPB SCH ×3 (09:07→23:43)
[2022-03-26] MEDS: VORICONAZOLE 500 MG in SODIUM CHLORIDE 0.9% 250 ML IVPB SCH ×2 (09:08→21:20)
[2022-03-26 12:04] LABS: C Reactive Protein 6.4 mg/dL (0.00-0.80); Magnesium 1.9 mg/dL (1.5-2.4); Phosphorus 2.7 mg/dL (2.4-5.1)
[2022-03-26 12:16] LABS: African American GFR (CKD) 153.2 (60.0-200.0); Albumin 2.8 g/dL (3.8-4.9); Albumin/Globulin Ratio 1.3 (1.60-3.17); Anion Gap 8.8 mmol/L (10.00-18.00); BUN/Creat Ratio 4.47 Ratio (12.00-20.00); Calcium 7.5 mg/dL (8.7-10.3); Carbon Dioxide 22.1 mmol/L (20.0-27.5); Globulin 2.2 g/dL (1.6-3.3); Non-African American GFR(CKD) 132.2 (60.0-200.0); Potassium 3.4 mmol/L (3.5-5.5); Total Bilirubin 0.3 mg/dL (0.30-1.20); Total Protein 4.9 g/dL (6.2-8.2)
[2022-03-26] MEDS ORDERED: POTASSIUM CHLORIDE ER 20 MEQ TAB.ER PO STA (12:24)
--- NOTE | 2022-03-26 12:26 | P.PN ---
Subjective Progress Note Date: 03/26/22 Principal diagnosis: fever Patient still having low-grade fevers, last temperature 100.3. No other complaint. No chest pain or shortness of breath. No rash. Objective - Vital Signs Vital signs: Vital Signs Temp 98.7 F 03/26/22 05:00 Pulse 94 03/26/22 05:00 Resp 16 03/26/22 05:00 BP 139/86 03/26/22 05:00 Pulse Ox 96 03/26/22 07:32 FiO2 Intake & Output 03/25/22 03/26/22 03/26/22 18:59 06:59 18:59 Intake Total 360 Balance 360 Intake: Oral 360 Other: Voiding Method Toilet Toilet Toilet # Voids 3 1 - Exam Constitutional: No acute distress, conversant, pleasant Eyes:Anicteric sclerae, moist conjunctiva, no lid-lag, PERRLA, ENMT: Oropharynx clear, no erythema, exudates Neck: Supple, FROM, no masses, or JVD, No carotid bruits, No thyromegaly Lungs: Clear to auscultation, Clear to percussion, Normal respiratory effort, no accessory muscle use Cardiovascular: Heart regular in rate and rhythm, No murmurs, gallops, or rubs, No peripheral edema Abdominal: Soft, Nontender, no guarding, rebound or rigidity, Normoactive bowel sounds, No hepatomegaly, No splenomegaly, No palpable mass Skin: Normal temperature, tone, texture, turgor, no induration, No subcutaneous nodules, No rash, lesions, No ulcers Extremities: No digital cyanosis, No clubbing, Pedal pulses intact and symmetrical, Radial pulses intact and symmetrical, No calf tenderness Psychiatric: Alert and oriented to person, place and time, appropriate affect, intact judgement Neuro: Muscles Strength 5/5 in all 4 extremities, Sensation to light touch grossly present throughout, Cranial nerves II-XII grossly intact, no focal sensory deficits - Labs CBC & Chem 7: 03/25/22 11:04 03/26/22 07:11 Labs: Abnormal Lab Results - Last 24 Hours (Table) 03/25/22 03/25/22 03/25/22 Range/Units 11:04 11:04 11:04 Blast Cells % 1 H* % Neutrophils # (Manual) 1.10 L (1.3-7.7) k/uL Lymphocytes # (Manual) 0.78 L (1.0-4.8) k/uL Metamyelocytes # (Man) 0.11 H (0) k/uL Myelocytes # (Manual) 0.28 H (0) k/uL Blast Cells # (Man) 0.03 H (0) k/uL PT 12.5 H (9.0-12.0) sec INR 1.2 H (<1.2) Potassium (3.5-5.5) mmol/L Chloride (96-109) mmol/L Anion Gap (10.00-18.00) mmol/L BUN (9.0-27.0) mg/dL BUN/Creatinine Ratio (12.00-20.00) Ratio Calcium (8.7-10.3) mg/dL AST (14-35) U/L ALT (10-49) U/L Lactate Dehydrogenase (120-246) U/L C-Reactive Protein (0.00-0.80) mg/dL Total Protein (6.2-8.2) g/dL Albumin (3.8-4.9) g/dL Albumin/Globulin Ratio (1.60-3.17) g/dL Vitamin D 25-Hydroxy 12.6 L (30.0-100.0) ng/mL Procalcitonin (0.02-0.09) ng/mL 03/26/22 03/26/22 Range/Units 07:11 07:11 Blast Cells % % Neutrophils # (Manual) (1.3-7.7) k/uL Lymphocytes # (Manual) (1.0-4.8) k/uL Metamyelocytes # (Man) (0) k/uL Myelocytes # (Manual) (0) k/uL Blast Cells # (Man) (0) k/uL PT (9.0-12.0) sec INR (<1.2) Potassium 3.4 L (3.5-5.5) mmol/L Chloride 112 H (96-109) mmol/L Anion Gap 8.80 L (10.00-18.00) mmol/L BUN 3.0 L (9.0-27.0) mg/dL BUN/Creatinine Ratio 4.47 L (12.00-20.00) Ratio Calcium 7.5 L (8.7-10.3) mg/dL AST 38 H (14-35) U/L ALT 52 H (10-49) U/L Lactate Dehydrogenase 387 H (120-246) U/L C-Reactive Protein 6.40 H (0.00-0.80) mg/dL Total Protein 4.9 L (6.2-8.2) g/dL Albumin 2.8 L (3.8-4.9) g/dL Albumin/Globulin Ratio 1.30 L (1.60-3.17) g/dL Vitamin D 25-Hydroxy (30.0-100.0) ng/mL Procalcitonin 1.00 H (0.02-0.09) ng/mL Microbiology - Last 24 Hours (Table) 03/20/22 09:54 Blood Culture - Final Blood No Growth after 144 hours 03/20/22 09:27 Blood Culture - Final Blood No Growth after 144 hours Assessment and Plan Plan: #Febrile neutropenia With staph hominis bacteremia PICC line removed Continue per infectious disease recommendations Currently on vancomycin, aztreonam, voriconazole and acyclovir. D/w ID will d/c abx soon, fever likely related to his blood disorder White blood cell count improving, neutrophils count improving, hemoglobins and platelets stable Continue per hematology recommendations Repeat blood cultures: No growth to date #Acute myelogenous leukemia Completed induction chemotherapy Hematology following #Hypokalemia Replace DVT prophylaxis: SCDs
[2022-03-26 13:18] LABS: HCT 21.1 % (39.6-50.0); HGB 7.4 g/dL (13.0-17.0); MCH 31.6 pg (27.0-32.0); MCHC 35.1 g/dL (32.0-37.0); MCV 90.2 fL (80.0-97.0); Mean Platelet Volume 10.4 fL (9.5-12.2); NRBC Per 100 WBC 0.8 /100 WBCS (0.0-0.0); Platelet Count 250 X 10*3/uL (140-440); RBC 2.34 X 10*6/uL (4.40-5.60); RDW 15.6 % (11.5-14.5); WBC 3.81 X 10*3/uL (4.50-10.00)
[2022-03-26 13:19] LABS: Basophils # (M) 0.08 X 10*3/uL (0.00-0.10); Eosinophils # (M) 0 X 10*3/uL (0.04-0.35); Lymphocytes # (M) 0.61 X 10*3/uL (0.90-5.00); Metamyelocytes % 7 % (0-0); Monocytes # (M) 0.27 X 10*3/uL (0.20-1.00); Myelocytes % 20 % (0-0); Neutrophils # (M) 1.83 X 10*3/uL (2.00-8.90); Neutrophils % (M) 48 %; RBC Morphology NORMAL
[2022-03-26] MEDS: ACETAMINOPHEN TAB 325 MG TAB PO PRN (13:24)
[2022-03-26] MEDS: OLANZapine 5 MG TAB PO SCH (21:19)
[2022-03-26] MEDS: LORazepam 1 MG TAB PO PRN (21:19)
[2022-03-27] MEDS: SALT AND SODA MOUTHWASH 1,000 ML PO SCH ×3 (00:21→14:08)
[2022-03-27] MEDS: VANCOMYCIN 2,000 MG in SODIUM CHLORIDE 0.9% 500 ML 500 ML IVPB SCH ×2 (05:42→14:09)
[2022-03-27 05:48] VITALS: PULSE 89
[2022-03-27 06:51] LABS: Anisocytosis Slight; HCT 23.3 % (39.0-53.0); HGB 8.1 gm/dL (13.0-17.5); MCH 30.5 pg (25.0-35.0); MCHC 34.6 g/dL (31.0-37.0); Mean Platelet Volume 7.9; Platelet Count 312 k/uL (150-450); Poikilocytosis Slight; RBC 2.65 m/uL (4.30-5.90); RDW 16.2 % (11.5-15.5); WBC 4.7 k/uL (3.8-10.6)
[2022-03-27 07:02] LABS: African American GFR (CKD) >90 (>60 ml/min/1.73 sqM); Anion Gap 4 mmol/L; Blood Urea Nitrogen <2 mg/dL (9-20); Calcium 7.4 mg/dL (8.4-10.2); Carbon Dioxide 24 mmol/L (22-30); Chloride 113 mmol/L (98-107); Glucose 83 mg/dL (74-99); Non-African American GFR(CKD) >90 (>60 ml/min/1.73 sqM); Potassium 3.6 mmol/L (3.5-5.1); Sodium 141 mmol/L (137-145)
[2022-03-27 07:24] LABS: Anisocytosis (M) Present; Band Neutrophils % 18 %; Hypochromasia (M) Present; Lymphocytes # (M) 1.03 k/uL (1.0-4.8); Metamyelocytes # (M) 0.52 k/uL (0); Metamyelocytes % 11 %; Monocytes # (M) 0.33 k/uL (0-1.0); Myelocytes # (M) 0.47 k/uL (0); Myelocytes % 10 %; Neutrophils % (M) 32 %; Nucleated Red Blood Cells 0 /100 WBC (0-0); Total Cells Counted 100
--- NOTE | 2022-03-27 07:50 | P.PN ---
Subjective Progress Note Date: 03/26/22 Principal diagnosis: Febrile neutropenia Patient is a 26-year-old male with the acute myelogenous leukemia admitted to the hospital for induction of chemotherapy patient did have right upper extremity PICC line for chemotherapy developing a fever. On today's evaluation that is 03/26/2022, patient is afebrile today, patient denies any chest pain or shortness of breath or cough, the patient denies nausea no vomiting no abdominal pain no diarrhea and the patient rash has almost resolved Objective - Vital Signs Vital signs: Vital Signs Temp 99.4 F 03/26/22 13:00 Pulse 99 03/26/22 13:00 Resp 16 03/26/22 13:00 BP 142/80 03/26/22 13:00 Pulse Ox 97 03/26/22 13:00 FiO2 Intake & Output 03/25/22 03/26/22 03/26/22 18:59 06:59 18:59 Intake Total 360 Balance 360 Intake: Oral 360 Other: Voiding Method Toilet Toilet Toilet # Voids 3 1 - Exam GENERAL DESCRIPTION: A middle-age male lying in bed in no distress RESPIRATORY SYSTEM: Unlabored breathing , decreased breath sounds at bases HEART: S1 S2 regular rate and rhythm , ABDOMEN: Soft , no tenderness EXTREMITIES: No edema feet - Labs CBC & Chem 7: 03/27/22 06:31 03/27/22 06:31 Labs: Abnormal Lab Results - Last 24 Hours (Table) 03/25/22 03/26/22 03/26/22 Range/Units 11:04 07:11 07:11 WBC 3.81 L (4.50-10.00) X 10*3/uL RBC 2.34 L (4.40-5.60) X 10*6/uL Hgb 7.4 L (13.0-17.0) g/dL Hct 21.1 L (39.6-50.0) % RDW 15.6 H (11.5-14.5) % Absolute Nucleated RBC 0.03 H (0.00-0.00) X 10*3/uL Metamyelocytes % 7 H (0-0) % Myelocytes % 20 H (0-0) % Neutrophils # (Manual) 1.83 L (2.00-8.90) X 10*3/uL Lymphocytes # (Manual) 0.61 L (0.90-5.00) X 10*3/uL Eosinophils # (Manual) 0 L (0.04-0.35) X 10*3/uL NRBC/100 WBC Diff 0.8 H (0.0-0.0) /100 WBCS Potassium (3.5-5.5) mmol/L Chloride (96-109) mmol/L Anion Gap (10.00-18.00) mmol/L BUN (9.0-27.0) mg/dL BUN/Creatinine Ratio (12.00-20.00) Ratio Calcium (8.7-10.3) mg/dL AST (14-35) U/L ALT (10-49) U/L Lactate Dehydrogenase (120-246) U/L C-Reactive Protein (0.00-0.80) mg/dL Total Protein (6.2-8.2) g/dL Albumin (3.8-4.9) g/dL Albumin/Globulin Ratio (1.60-3.17) g/dL Vitamin D 25-Hydroxy 12.6 L (30.0-100.0) ng/mL Procalcitonin 1.00 H (0.02-0.09) ng/mL 03/26/22 Range/Units 07:11 WBC (4.50-10.00) X 10*3/uL RBC (4.40-5.60) X 10*6/uL Hgb (13.0-17.0) g/dL Hct (39.6-50.0) % RDW (11.5-14.5) % Absolute Nucleated RBC (0.00-0.00) X 10*3/uL Metamyelocytes % (0-0) % Myelocytes % (0-0) % Neutrophils # (Manual) (2.00-8.90) X 10*3/uL Lymphocytes # (Manual) (0.90-5.00) X 10*3/uL Eosinophils # (Manual) (0.04-0.35) X 10*3/uL NRBC/100 WBC Diff (0.0-0.0) /100 WBCS Potassium 3.4 L (3.5-5.5) mmol/L Chloride 112 H (96-109) mmol/L Anion Gap 8.80 L (10.00-18.00) mmol/L BUN 3.0 L (9.0-27.0) mg/dL BUN/Creatinine Ratio 4.47 L (12.00-20.00) Ratio Calcium 7.5 L (8.7-10.3) mg/dL AST 38 H (14-35) U/L ALT 52 H (10-49) U/L Lactate Dehydrogenase 387 H (120-246) U/L C-Reactive Protein 6.40 H (0.00-0.80) mg/dL Total Protein 4.9 L (6.2-8.2) g/dL Albumin 2.8 L (3.8-4.9) g/dL Albumin/Globulin Ratio 1.30 L (1.60-3.17) g/dL Vitamin D 25-Hydroxy (30.0-100.0) ng/mL Procalcitonin (0.02-0.09) ng/mL Microbiology - Last 24 Hours (Table) 03/20/22 09:54 Blood Culture - Final Blood No Growth after 144 hours 03/20/22 09:27 Blood Culture - Final Blood No Growth after 144 hours Assessment and Plan (1) Neutropenic fever Current Visit: Yes Status: Acute Priority: High Code(s): D70.9 - NEUTROPENIA, UNSPECIFIED; R50.81 - FEVER PRESENTING WITH CONDITIONS CLASSIFIED ELSEWHERE SNOMED Code(s): 323149173 Plan: 1patient with a febrile neutropenia in this patient with acute myelogenous l eukemia admitted to the hospital for induction of chemotherapy and is day 10 of induction therapy patient did have a right upper arm PICC line which was placed this admission on his symptoms of nosebleed but no other obvious signs and symptoms of infection and the work-up has been negative so far with a negative chest x-ray negative UA abdominal soft frontal examination CT of the brain with left maxillary sinusitis however CT of the sinuses did not show any evidence of sinusitis. 2patient blood cultures came back positive with gram-positive cocci which has been finalized as coagulase negative staph, keeping in mind his persistent fever patient PICC line was discontinued, the patient also have CT of the chest which did not show any pneumonia 3-patient staph epi was sensitive to cefazolin and the patient was continued on cefepime however the patient has not developed a generalized rash which could be related to cefepime, cefepime was discontinued. 4the patient is currently covered with vancomycin, Azactam and voriconazole, however the patient white count has recovered with cultures negative we'll transition to short course of oral antibiotics Time with Patient: Less than 30
[2022-03-27] MEDS: CHOLESTYRAMINE (WITH SUGAR) 4 GM PACKET PO SCH ×2 (07:59→14:08)
[2022-03-27] MEDS: diphenhydrAMINE 2% CREAM 28.4 GM TUBE TOPICAL SCH (08:00)
[2022-03-27] MEDS: CLOTRIMAZOLE/BETAMETH 1-0.05% CREAM 45 GM TUBE TOPICAL SCH (08:00)
[2022-03-27] MEDS: SODIUM CHLORIDE 0.9% 1,000 ML IV SCH (08:11)
[2022-03-27] MEDS: VORICONAZOLE 500 MG in SODIUM CHLORIDE 0.9% 250 ML IVPB SCH ×2 (08:13→08:49)
[2022-03-27] MEDS: guaiFENesin SYRUP 100MG/5ML 200 MG/10 ML CUP PO PRN (08:14)
[2022-03-27] MEDS: AZTREONAM 2 GM in SODIUM CHLORIDE 0.9% 100 ML IVPB SCH (08:14)
[2022-03-27] MEDS: CHOLECALCIFEROL 125 MCG (5000 IU) TABLET PO SCH (08:15)
[2022-03-27] MEDS: PANTOPRAZOLE 40 MG TABLET PO SCH (08:16)
[2022-03-27] MEDS: CYANOCOBALAMIN 500 MCG TAB PO SCH (08:16)
[2022-03-27] MEDS: ZINC SULFATE 220 MG CAP PO SCH (08:16)
[2022-03-27] MEDS: LORATADINE 10 MG TAB PO SCH (08:16)
[2022-03-27] MEDS: FOLIC ACID 1 MG TAB PO SCH (08:17)
[2022-03-27] MEDS: ACYCLOVIR 200 MG CAP PO SCH (08:17)
[2022-03-27] MEDS: BENZONATATE 100 MG CAP PO PRN (08:17)
[2022-03-27] MEDS: allopurinoL 300 MG TAB PO SCH (08:17)
[2022-03-27] MEDS: polyethylene glycoL 3350 17 GM POWD.PACK PO SCH (08:18)
--- NOTE | 2022-03-27 09:12 | P.PN ---
Subjective Progress Note Date: 03/26/22 Principal diagnosis: Confirmed AML Blood work is stable and fevers have been decreasing the past 24 hours. Will see if he can be cleared by ID and if so ok with discharge. Message sent to Dr. Michelet Perez law office assistant to set up for Bone Marrow Biopsy. Objective - Vital Signs Vital signs: Vital Signs Temp 99.1 F 03/26/22 21:00 Pulse 86 03/26/22 21:00 Resp 16 03/26/22 21:00 BP 127/78 03/26/22 21:00 Pulse Ox 98 03/26/22 21:00 FiO2 Intake & Output 03/26/22 03/26/22 03/27/22 06:59 18:59 06:59 Intake Total 1725 600 Balance 1725 600 Intake: Intake, IV Titration 1725 Amount Aztreonam 2 gm In Sodium 200 Chloride 0.9% 100 ml @ 33 .3 mls/hr IVPB Q8H [facility] Rx #:[id number] Sodium Chloride 0.9% 1, 900 000 ml @ 75 mls/hr IV . [id number] [facility] Rx#:[id number] Vancomycin 2,000 mg In 500 Sodium Chloride 0.9% 500 ml 500 ml @ 167 mls/hr IVPB Q8H [facility] Rx#: [id number] Voriconazole 500 mg In 125 Sodium Chloride 0.9% 250 ml @ 125 mls/hr IVPB Q12HR [facility] Rx#:[id number] Oral 600 Other: Voiding Method Toilet Toilet Toilet # Voids 1 - Exam - EENT Eyes: EOMI ENT: NA/AT - Respiratory Respiratory: bilateral: CTA - Cardiovascular Rhythm: regular - Gastrointestinal General gastrointestinal: soft - Integumentary Integumentary: pale, Rash papular - Neurologic Neurologic: CNII-XII intact - Musculoskeletal Musculoskeletal: generalized weakness, strength equal bilaterally - Psychiatric Psychiatric: A&O x's 3, appropriate affect, intact judgment & insight - Labs CBC & Chem 7: 03/27/22 06:31 03/27/22 06:31 Labs: Abnormal Lab Results - Last 24 Hours (Table) 03/26/22 03/26/22 03/26/22 Range/Units 07:11 07:11 07:11 WBC 3.81 L (4.50-10.00) X 10*3/uL RBC 2.34 L (4.40-5.60) X 10*6/uL Hgb 7.4 L (13.0-17.0) g/dL Hct 21.1 L (39.6-50.0) % RDW 15.6 H (11.5-14.5) % Absolute Nucleated RBC 0.03 H (0.00-0.00) X 10*3/uL Metamyelocytes % 7 H (0-0) % Myelocytes % 20 H (0-0) % Neutrophils # (Manual) 1.83 L (2.00-8.90) X 10*3/uL Lymphocytes # (Manual) 0.61 L (0.90-5.00) X 10*3/uL Eosinophils # (Manual) 0 L (0.04-0.35) X 10*3/uL NRBC/100 WBC Diff 0.8 H (0.0-0.0) /100 WBCS Potassium 3.4 L (3.5-5.5) mmol/L Chloride 112 H (96-109) mmol/L Anion Gap 8.80 L (10.00-18.00) mmol/L BUN 3.0 L (9.0-27.0) mg/dL BUN/Creatinine Ratio 4.47 L (12.00-20.00) Ratio Calcium 7.5 L (8.7-10.3) mg/dL AST 38 H (14-35) U/L ALT 52 H (10-49) U/L Lactate Dehydrogenase 387 H (120-246) U/L C-Reactive Protein 6.40 H (0.00-0.80) mg/dL Total Protein 4.9 L (6.2-8.2) g/dL Albumin 2.8 L (3.8-4.9) g/dL Albumin/Globulin Ratio 1.30 L (1.60-3.17) g/dL Procalcitonin 1.00 H (0.02-0.09) ng/mL Microbiology - Last 24 Hours (Table) 03/20/22 09:54 Blood Culture - Final Blood No Growth after 144 hours 03/20/22 09:27 Blood Culture - Final Blood No Growth after 144 hours Assessment and Plan (1) AML (acute myelogenous leukemia) Narrative/Plan: New Diagnosis Status Post Induction with 7 plus 3 Antiemetics Daily labs Close monitoring Cytogenics with one favorable, one not favorable. Will check Bone Marrow biopsy for induction response and if remission arrange for consultation [place] transplant appointment, there they will determine if transplant is needed and what next treatment steps will entail Blood counts have recovered, as soon as he has recovered from covid will repeat BM biopsy Current Visit: Yes Status: Acute Priority: High Code(s): C92.00 - ACUTE MYELOBLASTIC LEUKEMIA, NOT HAVING ACHIEVED REMISSION SNOMED Code(s): 32048661 (2) Leukocytosis Narrative/Plan: Secondary to AML, Current Visit: Yes Status: Acute Priority: High Code(s): D72.829 - ELEVATED WHITE BLOOD CELL COUNT, UNSPECIFIED SNOMED Code(s): 020318802 (3) Thrombocytopenia Narrative/Plan: NO ASA, AC therapy, NSAIDS. Transfusions with Irradiated blood products only. >10K Monitor closely Improving daily Recovered completely able to take ibuprofen for fever in addition to tylenol Current Visit: Yes Status: Acute Code(s): D69.6 - THROMBOCYTOPENIA, UNSPECIFIED SNOMED Code(s): 157068906 (4) Coagulopathy Narrative/Plan: Monitor closely with active COVID Stable Current Visit: Yes Status: Acute Code(s): D68.9 - COAGULATION DEFECT, UNSPECIFIED SNOMED Code(s): 51558916 (5) Neutropenic fever Narrative/Plan: T-Max 10o.3 Covid Positive ID is monitoring aggressively and closely, we appreciate this Improved Current Visit: Yes Status: Acute Priority: High Code(s): D70.9 - NEUTROPENIA, UNSPECIFIED; R50.81 - FEVER PRESENTING WITH CONDITIONS CLASSIFIED ELSEWHERE SNOMED Code(s): 745460299 (6) Pancytopenia due to antineoplastic chemotherapy Current Visit: Yes Status: Acute Priority: High Code(s): D61.810 - ANTINEOPLASTIC CHEMOTHERAPY INDUCED PANCYTOPENIA; T45.1X5A - ADVERSE EFFECT OF ANTINEOPLASTIC AND IMMUNOSUP DRUGS, INIT SNOMED Code(s): 614687179563187 (7) COVID-19 Narrative/Plan: Aggressive supportive care ID following closely Monitor closely for DIC and respiratory maintenance Continue Care from ID, cont abx, cont Vitamin D3 dosage and Zinc Recheck Igg Current Visit: Yes Status: Acute Code(s): U07.1 - COVID-19 SNOMED Code(s): 012296492 Plan: Hoping for discharge 24-48 hours
--- NOTE | 2022-03-27 09:15 | P.PN ---
Subjective Progress Note Date: 03/27/22 Principal diagnosis: Confirmed AML Afebrile this am, hoping he can be discharged today. Await ID recs Objective - Vital Signs Vital signs: Vital Signs Temp 98.4 F 03/27/22 05:00 Pulse 89 03/27/22 05:00 Resp 16 03/27/22 05:00 BP 142/88 03/27/22 05:00 Pulse Ox 97 03/27/22 05:00 FiO2 Intake & Output 03/26/22 03/27/22 03/27/22 18:59 06:59 18:59 Intake Total 1725 2875 Balance 1725 2875 Intake: Intake, IV Titration 1725 1325 Amount Aztreonam 2 gm In Sodium 200 100 Chloride 0.9% 100 ml @ 33 .3 mls/hr IVPB Q8H [facility] Rx #:[id number] Sodium Chloride 0.9% 1, 900 600 000 ml @ 75 mls/hr IV . [id number] [facility] Rx#:[id number] Vancomycin 2,000 mg In 500 500 Sodium Chloride 0.9% 500 ml 500 ml @ 167 mls/hr IVPB Q8H [facility] Rx#: [id number] Voriconazole 500 mg In 125 125 Sodium Chloride 0.9% 250 ml @ 125 mls/hr IVPB Q12HR BREAN[facility] Rx#:[id number] Oral 1550 Other: Voiding Method Toilet Toilet # Voids 1 - Exam - EENT Eyes: EOMI ENT: NA/AT - Respiratory Respiratory: bilateral: CTA - Cardiovascular Rhythm: regular - Gastrointestinal General gastrointestinal: soft - Integumentary Integumentary: pale, Rash papular - Neurologic Neurologic: CNII-XII intact - Musculoskeletal Musculoskeletal: generalized weakness, strength equal bilaterally - Psychiatric Psychiatric: A&O x's 3, appropriate affect, intact judgment & insight - Labs CBC & Chem 7: 03/27/22 06:31 03/27/22 06:31 Labs: Abnormal Lab Results - Last 24 Hours (Table) 03/26/22 03/26/22 03/26/22 Range/Units 07:11 07:11 07:11 WBC 3.81 L (4.50-10.00) X 10*3/uL RBC 2.34 L (4.40-5.60) X 10*6/uL Hgb 7.4 L (13.0-17.0) g/dL Hct 21.1 L (39.6-50.0) % RDW 15.6 H (11.5-14.5) % Absolute Nucleated RBC 0.03 H (0.00-0.00) X 10*3/uL Metamyelocytes % 7 H (0-0) % Myelocytes % 20 H (0-0) % Neutrophils # (Manual) 1.83 L (2.00-8.90) X 10*3/uL Lymphocytes # (Manual) 0.61 L (0.90-5.00) X 10*3/uL Eosinophils # (Manual) 0 L (0.04-0.35) X 10*3/uL Metamyelocytes # (Man) (0) k/uL Myelocytes # (Manual) (0) k/uL NRBC/100 WBC Diff 0.8 H (0.0-0.0) /100 WBCS Potassium 3.4 L (3.5-5.5) mmol/L Chloride 112 H (96-109) mmol/L Anion Gap 8.80 L (10.00-18.00) mmol/L BUN 3.0 L (9.0-27.0) mg/dL Creatinine (0.66-1.25) mg/dL BUN/Creatinine Ratio 4.47 L (12.00-20.00) Ratio Calcium 7.5 L (8.7-10.3) mg/dL AST 38 H (14-35) U/L ALT 52 H (10-49) U/L Lactate Dehydrogenase 387 H (120-246) U/L C-Reactive Protein 6.40 H (0.00-0.80) mg/dL Total Protein 4.9 L (6.2-8.2) g/dL Albumin 2.8 L (3.8-4.9) g/dL Albumin/Globulin Ratio 1.30 L (1.60-3.17) g/dL Procalcitonin 1.00 H (0.02-0.09) ng/mL 03/27/22 03/27/22 Range/Units 06:31 06:31 WBC (4.50-10.00) X 10*3/uL RBC 2.65 L (4.40-5.60) X 10*6/uL Hgb 8.1 L (13.0-17.0) g/dL Hct 23.3 L (39.6-50.0) % RDW 16.2 H (11.5-14.5) % Absolute Nucleated RBC (0.00-0.00) X 10*3/uL Metamyelocytes % (0-0) % Myelocytes % (0-0) % Neutrophils # (Manual) (2.00-8.90) X 10*3/uL Lymphocytes # (Manual) (0.90-5.00) X 10*3/uL Eosinophils # (Manual) (0.04-0.35) X 10*3/uL Metamyelocytes # (Man) 0.52 H (0) k/uL Myelocytes # (Manual) 0.47 H (0) k/uL NRBC/100 WBC Diff (0.0-0.0) /100 WBCS Potassium (3.5-5.5) mmol/L Chloride 113 H (96-109) mmol/L Anion Gap (10.00-18.00) mmol/L BUN <2 L (9.0-27.0) mg/dL Creatinine 0.65 L (0.66-1.25) mg/dL BUN/Creatinine Ratio (12.00-20.00) Ratio Calcium 7.4 L (8.7-10.3) mg/dL AST (14-35) U/L ALT (10-49) U/L Lactate Dehydrogenase (120-246) U/L C-Reactive Protein (0.00-0.80) mg/dL Total Protein (6.2-8.2) g/dL Albumin (3.8-4.9) g/dL Albumin/Globulin Ratio (1.60-3.17) g/dL Procalcitonin (0.02-0.09) ng/mL Microbiology - Last 24 Hours (Table) 03/20/22 09:54 Blood Culture - Final Blood No Growth after 144 hours 03/20/22 09:27 Blood Culture - Final Blood No Growth after 144 hours Assessment and Plan (1) AML (acute myelogenous leukemia) Narrative/Plan: New Diagnosis Status Post Induction with 7 plus 3 Antiemetics Daily labs Close monitoring Cytogenics with one favorable, one not favorable. Will check Bone Marrow biopsy for induction response and if remission arrange for consultation downtown transplant appointment, there they will determine if transplant is needed and what next treatment steps will entail Blood counts have recovered, as soon as he has recovered from covid will repeat BM biopsy Status: Acute Priority: High Code(s): C92.00 - ACUTE MYELOBLASTIC LEUKEMIA, NOT HAVING ACHIEVED REMISSION SNOMED Code(s): 59869715 (2) Leukocytosis Narrative/Plan: Secondary to AML, Status: Acute Priority: High Code(s): D72.829 - ELEVATED WHITE BLOOD CELL COUNT, UNSPECIFIED SNOMED Code(s): 895236903 (3) Thrombocytopenia Narrative/Plan: NO ASA, AC therapy, NSAIDS. Transfusions with Irradiated blood products only. >10K Monitor closely Improving daily Recovered completely able to take ibuprofen for fever in addition to tylenol Status: Acute Code(s): D69.6 - THROMBOCYTOPENIA, UNSPECIFIED SNOMED Code(s): 424061177 (4) Coagulopathy Narrative/Plan: Monitor closely with active COVID Stable Status: Acute Code(s): D68.9 - COAGULATION DEFECT, UNSPECIFIED SNOMED Code(s): 59954078 (5) Neutropenic fever Narrative/Plan: T-Max 98.3 Covid Positive ID is monitoring aggressively and closely, we appreciate this Improved Status: Acute Priority: High Code(s): D70.9 - NEUTROPENIA, UNSPECIFIED; R50.81 - FEVER PRESENTING WITH CONDITIONS CLASSIFIED ELSEWHERE SNOMED Code(s): 634119221 (6) Pancytopenia due to antineoplastic chemotherapy Status: Acute Priority: High Code(s): D61.810 - ANTINEOPLASTIC CHEMOTHERAPY INDUCED PANCYTOPENIA; T45.1X5A - ADVERSE EFFECT OF ANTINEOPLASTIC AND IMMUNOSUP DRUGS, INIT SNOMED Code(s): 356660796342956 (7) COVID-19 Narrative/Plan: Aggressive supportive care ID following closely Monitor closely for DIC and respiratory maintenance Continue Care from ID, cont abx, cont Vitamin D3 dosage and Zinc Recheck Igg Status: Acute Code(s): U07.1 - COVID-19 SNOMED Code(s): 037085778 Plan: Hoping for discharge soon Bone Marrow to be scheduled this week 7am Will follow-up with Dr. Wolfe at [facility] for recommendations of next treatment steps Home today with Vitamin D3, Folaic acid, xanax ondansetran and levaquin. Labs Sunday
[2022-03-27 11:30] VITALS: BP 137/84; TEMP 98.6
--- NOTE | 2022-03-27 12:20 | P.DS ---
Providers Date of admission: 02/25/22 12:59 Expected date of discharge: 03/27/22 Attending physician: Akua Velarde MD Consults: 02/25/22 12:56 Consult Physician Urgent Consulting Provider: Carrington Almanza Consult Reason/Comments: Elevated blast cells, leukocytosis Do you want consulting provider notified?: Yes 03/12/22 08:36 Consult Physician Routine Consulting Provider: Mary Singer Consult Reason/Comments: febrile neutropenia Do you want consulting provider notified?: Yes Primary care physician: [facility] Course: 26-year-old male with no significant past medical history who went to go see his PCP because he has been battling a cold for a month and had chest pains. He was diagnosed with pneumonia and was started on antibiotics which he completed. PCP and also ordered blood work that showed thrombocytopenia so was told to come into the ED. In the ED labs revealed platelet count of 36 and WBC 25.5 with 38% blasts and predominantly lymphocytes. Chest x-ray was negative for any acute process. Patient was admitted, he ultimately underwent a bone marrow biopsy which demonstrated acute myeloid leukemia. Oncology started him on induction chemotherapy. He spiked a fever of 100.9 on 03/11/22, these fevers continued. He was started on braod spectrum antibiotics. CXR was without acute process, UA without signs of infection. Infectious disease was consulted. He was found to have coag negative staph bacteremia. CT chest without acute process. He continued to spike high fevers despite antibiotics treatment. He denied having any chest pain, shortness of breath, only had minimal cough. No nausea no vomiting no abdominal pain and no diarrhea. He grew staph hominis in the blood, due to that and the persistent fevers the PICC line was d/zulay. He tested + for COVID as well. Tested negative for influenza A/B, RSV. He was treated with vanco, aztreonam, andalifungin, acyclovir. Repeat blood cx negative. He was cleared by ID today for coversion to oral abx. He was also cleared by oncology. He will undergo bm biopsy again on . He will be discharged in a stable condition. Time for discharge 35 min Plan - Discharge Summary Discharge Rx Participant: No New Discharge Prescriptions: New Acyclovir [Zovirax] 400 mg PO BID #60 tablet Ciprofloxacin HCl [Cipro] 500 mg PO DAILY 30 Days #30 tab Nystatin [Nystatin Oral Susp] 4 ml PO QID #400 ml Ondansetron Odt [Zofran ODT] 4 mg PO Q6HR PRN #45 tab PRN Reason: Nausea And Vomiting Discharge Medication List Acyclovir [Zovirax] 400 mg PO BID #60 tablet 03/10/22 [Rx] Ciprofloxacin HCl [Cipro] 500 mg PO DAILY 30 Days #30 tab 03/10/22 [Rx] Nystatin [Nystatin Oral Susp] 4 ml PO QID #400 ml 03/10/22 [Rx] Ondansetron Odt [Zofran ODT] 4 mg PO Q6HR PRN #45 tab 03/10/22 [Rx] Follow up Appointment(s)/Referral(s): [facility], [NON-STAFF] - As Needed Usama Camejo MD [Primary Care Provider] - 1-2 days [facility],Infusion [NON-STAFF] - As Needed (Alissa [facility] (P: [phone]), patient is covered In-Office only at 80% until deductible is met) Infusion Services,[facility] [REFERRING] - As Needed ([facility] - Deductible: $3,000/met $534.65, covered at 80% once met in full. Patient out of pocket cost: $956.13/weekly. ) Carrington Almanza MD [STAFF PHYSICIAN] - 1 Week Activity/Diet/Wound Care/Special Instructions: Activity: [] Diet: [] Wound Care: [] Special Instructions: [] Our [employer] Trivia Challenge. We hope you fell better, so much better as work on taking all your ouchies away! Over the next few weeks remember You dont have time to be timid. You must be bold and daring so Just keep swimming! and were calling this controlling what you can when things feel out of control. and even miracles take a little time. As you move to the next adventure on this journey remember.. You are braver than you believe, stronger than you seem, and smarter than you think. We hope that next adventure takes you to [facility] and to get there all it takes is erasmo and trust! Oh, and never forget...The only thing predictable about life is its unpredictability For your sake we hope we don't have to See ya real soon! Discharge Disposition: HOME SELF-CARE
== END 2022-03-27 15:59 | disposition home or self-care (01) | DRG 834 ==
LOC: EC 09:32 → 5NMEDONC 12:59
PROVIDERS: ADMIT Internal Medicine; ATTEND Internal Medicine
PROC: 07DR3ZX Extraction of Iliac Bone Marrow, Percutaneous Approach, Diagnostic (ICD-10-PCS; principal; 2022-02-27 08:15)
PROC: 02HV33Z Insertion of Infusion Device into Superior Vena Cava, Percutaneous Approach (ICD-10-PCS; 2022-02-28)
PROC: 3E04305 Introduction of Other Antineoplastic into Central Vein, Percutaneous Approach (ICD-10-PCS; 2022-03-02)
PROC: XW0 New Technology, Anatomical Regions, Introduction (ICD-10-PCS; 2022-03-05)
PROC: 30233N1 Transfusion of Nonautologous Red Blood Cells into Peripheral Vein, Percutaneous Approach (ICD-10-PCS; 2022-03-06)
PROC: 30243R1 Transfusion of Nonautologous Platelets into Central Vein, Percutaneous Approach (ICD-10-PCS; 2022-03-12)
DX: C92.00 Acute myeloblastic leukemia, not having achieved remission (principal); U07.1 COVID-19; D61.810 Antineoplastic chemotherapy induced pancytopenia; R78.81 Bacteremia; D68.9 Coagulation defect, unspecified; D70.9 Neutropenia, unspecified; Z20.822 Contact with and (suspected) exposure to COVID-19; R50.81 Fever presenting with conditions classified elsewhere; T45.1X5A Adverse effect of antineoplastic and immunosuppressive drugs, initial encounter; B95.7 Other staphylococcus as the cause of diseases classified elsewhere; R04.0 Epistaxis; H53.8 Other visual disturbances; E87.6 Hypokalemia; L29.9 Pruritus, unspecified; M62.838 Other muscle spasm; R21 Rash and other nonspecific skin eruption; R19.7 Diarrhea, unspecified; G47.00 Insomnia, unspecified; F41.9 Anxiety disorder, unspecified; E66.9 Obesity, unspecified; Z68.35 Body mass index [BMI] 35.0-35.9, adult; Z90.89 Acquired absence of other organs; Z98.890 Other specified postprocedural states; Z71.3 Dietary counseling and surveillance; Z80.3 Family history of malignant neoplasm of breast; Z83.2 Family history of diseases of the blood and blood-forming organs and certain disorders involving the immune mechanism
CPT/HCPCS: 36415; 36573; 38222; 70470; 70487; 71045; 71046; 71260; 76700; 80048; 80053; 80076; 80202; 81001; 82306; 82330; 82565; 82607; 82746; 82784; 83605; 83615; 83735; 83921; 84100; 84145; 84425; 84439; 84443; 84481; 84550; 85025; 85027; 85045; 85379; 85384; 85385; 85610; 85730; 86038; 86140; 86334; 86360; 86431; 86850; 86900; 86901; 86920; 87040; 87070; 87077; 87186; 87252; 87305; 87324; 87449; 87498; 87502; 87529; 87634; 87635; 87636; 87798; 93005; 93306; 93970; 94760; 99285

== ENCOUNTER 2022-03-30 06:19 | Day surgery (SDC) | payer OTHER ==
[2022-03-29 09:47] VITALS: BMI 35.5
[2022-03-30] MEDS ORDERED: LACTATED RINGERS 1,000 ML IV SCH (06:43)
[2022-03-30 06:56] VITALS: RESP 20; TEMP 97.5
[2022-03-30] MEDS ORDERED: PROPOFOL 10 MG/ML 20 ML VIAL IV ONE (07:10)
[2022-03-30 07:54] LABS: Anisocytosis Slight; HCT 29.2 % (39.0-53.0); Hypochromasia Slight; MCH 30.1 pg (25.0-35.0); MCHC 32.9 g/dL (31.0-37.0); MCV 91.4 fL (80.0-100.0); Mean Platelet Volume 7.2; Platelet Count 497 k/uL (150-450); Poikilocytosis Moderate; RDW 18.7 % (11.5-15.5); Reticulocyte % 7.3 % (0.5-2.0); WBC 10.1 k/uL (3.8-10.6)
[2022-03-30 07:55] VITALS: BP 132/82; PULSE 86
[2022-03-30 08:30] LABS: HGB 9.6 gm/dL (13.0-17.5)
--- NOTE | 2022-03-30 09:34 | PCN ---
PROCEDURE NOTE PREOP DIAGNOSES: AML. POSTOP DIAGNOSIS: AML. ANESTHESIA: Local with IV systemic sedation. SITE: Right iliac crest. DETAILS: Utilizing sterile technique, the skin overlying the right iliac crest was prepared with alcohol after adequate sterile draping, local anesthesia with 1% lidocaine and systemic sedation size 11 4 inch Jamshidi needle was utilized to access the periosteum with ease. A total of 15 mL of aspirate and 1 cm core biopsies were obtained. The patient tolerated the procedure very well. There was no immediate procedure related complications. TOTAL BLOOD LOSS: Less than 1 mL. Results pending. MMODL / IJN: [id number] /
[2022-03-30 10:30] LABS: Band Neutrophils % 10 %; Lymphocytes # (M) 2.93 k/uL (1.0-4.8); Metamyelocytes # (M) 0.91 k/uL (0); Metamyelocytes % 9 %; Monocytes # (M) 1.31 k/uL (0-1.0); Myelocytes # (M) 1.01 k/uL (0); Myelocytes % 10 %; Neutrophils % (M) 29 %; Nucleated Red Blood Cells 0 /100 WBC (0-0); Total Cells Counted 200
[2022-03-30 10:33] LABS: Polychromasia Present
== END 2022-03-30 08:01 | disposition home or self-care (01) ==
LOC: OR 06:19
PROVIDERS: ATTEND Internal Medicine Hematology & Oncology
DX: C92.00 Acute myeloblastic leukemia, not having achieved remission (principal); Z79.899 Other long term (current) drug therapy
CPT/HCPCS: 85025; 85045; 38222; J2704

== ENCOUNTER 2022-04-24 08:42 | Inpatient (IN) | payer OTHER ==
[~2022-04-24 08:42] MED LIST: SALT AND SODA MOUTHWASH 1,000 ML PO PRN
[2022-04-24] MEDS ORDERED: SALT AND SODA MOUTHWASH 1,000 ML PO PRN (09:00)
[2022-04-24] MEDS ORDERED: ONDANSETRON 4 MG/2 ML VIAL IVP PRN (09:00)
[2022-04-24] MEDS ORDERED: FAMOTIDINE 20 MG/2 ML VIAL IVP SCH (10:00)
[2022-04-24] MEDS ORDERED: DEXAMETHASONE SOD PHOSPHATE 10 MG/ML 1 ML VIAL IVP SCH (10:00)
[2022-04-24] MEDS ORDERED: ONDANSETRON 16 MG in SODIUM CHLORIDE 0.9% 50 ML IVPB SCH (10:00)
[2022-04-24] MEDS ORDERED: LORazepam 1 MG TAB PO PRN (10:57)
[2022-04-24] MEDS ORDERED: CYTARABINE IV SCH (11:00)
[2022-04-24] MEDS ORDERED: SODIUM CHLORIDE 0.9% IV SCH (11:00)
[2022-04-24 11:23] LABS: Prothrombin Time 10.5 sec (9.0-12.0)
[2022-04-24 11:28] LABS: ALT 33 U/L (4-49); AST 25 U/L (17-59); African American GFR (CKD) >90 (>60 ml/min/1.73 sqM); Albumin 3.9 g/dL (3.5-5.0); Albumin/Globulin Ratio 1.6; Alkaline Phosphatase 55 U/L (38-126); Anion Gap 6 mmol/L; Blood Urea Nitrogen 12 mg/dL (9-20); Calcium 9.2 mg/dL (8.4-10.2); Carbon Dioxide 24 mmol/L (22-30); Chloride 109 mmol/L (98-107); Globulin 2.5 g/dL; Glucose 93 mg/dL (74-99); Non-African American GFR(CKD) >90 (>60 ml/min/1.73 sqM); Potassium 3.8 mmol/L (3.5-5.1); Sodium 139 mmol/L (137-145); Total Bilirubin 0.6 mg/dL (0.2-1.3); Total Protein 6.4 g/dL (6.3-8.2); Uric Acid 7.3 mg/dL (3.5-8.5)
[2022-04-24 11:43] LABS: Anisocytosis Slight; HCT 41.9 % (39.0-53.0); MCH 29.7 pg (25.0-35.0); MCHC 32.4 g/dL (31.0-37.0); MCV 91.5 fL (80.0-100.0); Mean Platelet Volume 8.5; RBC 4.58 m/uL (4.30-5.90); RDW 17.6 % (11.5-15.5)
[2022-04-24 11:46] LABS: HGB 13.6 gm/dL (13.0-17.5)
[2022-04-24 11:47] LABS: Platelet Count 120 k/uL (150-450)
[2022-04-24 11:52] LABS: Magnesium 1.7 mg/dL (1.6-2.3); Phosphorus 4.9 mg/dL (2.5-4.5)
[2022-04-24] MEDS: prednisoLONE ACETATE 1% OPHTH DROPS 5 ML BTL BOTH EYES SCH ×4 (12:08→21:21)
[2022-04-24] MEDS: SODIUM CHLORIDE 0.9% 1,000 ML IV SCH ×3 (12:09→21:24)
[2022-04-24] MEDS: ALPRAZolam 0.5 MG TAB PO PRN (12:17)
[2022-04-24] MEDS: SALT AND SODA MOUTHWASH 1,000 ML PO SCH ×2 (13:17→17:00)
[2022-04-24] MEDS ORDERED: LIDOCAINE 1% INJ 10MG/ML (5 ML VIAL-PF) SQ ONE (14:17)
--- NOTE | 2022-04-24 14:48 | IR ---
PICC LINE PLACEMENT: HISTORY: Chemotherapy PROCEDURE: Ultrasound and fluoroscopic guidance of PICC line placement. COMPLICATIONS: None ANESTHESIA: 1. 1% Lidocaine locally. FINDINGS/TECHNIQUE: The procedure was explained to the patient. The risks, complications, benefits and alternatives were discussed and any questions were answered. Informed consent was obtained. The patient was placed supine on the fluoroscopic table and prepped and draped in the usual sterile fash ion. Utilizing a 21 gauge needle and sonographic and fluoroscopic guidance, access in the right bas ilic vein was achieved and there is placement of a 0.018 guidewire. The vein is patent. A 5-Fr mccartney th was placed over the guidewire. The guidewire and dilator were removed and a 5-F. Double lumen PIC C line was placed through the sheath with the tip at the level of the SVC. The sheath was removed, t he catheter was flushed and sutured into position. The patient was stable throughout the procedure a nd remained stable upon discharge from the Department of Radiology. The vein puncture was patent under ultrasound. A carlisle scale image was obtained to document patency of the vein punctured. All elements of the maximal barrier technique were utilized. FLUOROSCOPY TIME: 0.2 minutes and one image submitted IMPRESSION: Successful PICC double lumen line placement under ultrasound and fluoroscopic guidance.
[2022-04-24 15:43] LABS: Metamyelocytes % 1 %; Neutrophils % (M) 46 %; Nucleated Red Blood Cells 0 /100 WBC (0-0); Total Cells Counted 200
[2022-04-24] MEDS: FAMOTIDINE 20 MG/2 ML VIAL IVP SCH (15:57)
[2022-04-24] MEDS: DEXAMETHASONE SOD PHOSPHATE 10 MG/ML 1 ML VIAL IVP SCH (15:58)
[2022-04-24] MEDS: ONDANSETRON 16 MG in SODIUM CHLORIDE 0.9% 50 ML IVPB SCH (16:08)
[2022-04-24] MEDS ORDERED: ACETAMINOPHEN TAB 325 MG TAB PO PRN (16:13)
[2022-04-24] MEDS ORDERED: bisacodyL 5 MG TABLET.DR PO PRN (16:14)
--- NOTE | 2022-04-24 16:20 | P.CONS ---
History of Present Illness - Reason for Consult Consult date: 04/24/22 med management Requesting physician: Carrington Almanza - Chief Complaint AML - History of Present Illness Patient is a 27-year-old male with known acute myelogenous leukemia here for cycle 2 of chemo. During his last hospital stay was quite prolonged. He was initially diagnosed with acute myelogenous leukemia, he then developed febrile neutropenia and was found to have a staph hominis bacteremia, he then did develop COVID-19. He has completed all treatment for his bacteremia. He has had a bone marrow biopsy since last hospital stay. He had a PICC line placed in his right upper extremity this morning. Patient seen and examined at bedside. He has been doing well since discharge. He denies any unusual cough, cold, chest pain, shortness of breath, nausea, vomiting, diarrhea. He has been eating and drinking well. He has overall been doing well. All questions answered. Pertinent positives and negatives as discussed in HPI, a complete review of systems was performed and all other systems are negative. Vital signs reviewed General: nontoxic, no distress, appears at stated age Derm: warm, dry Head: atraumatic, normocephalic, symmetric Eyes: EOMI, no lid lag, anicteric sclera, pupils equal round reactive to light ENT: Nose and ears atraumatic, no thrush, no pharyngeal erythema Neck: No thyromegaly, no cervical lymphadenopathy, trachea midline, supple Mouth: no lip lesion, mucus membranes moist Cardiovascular: S1S2 reg, no murmur, positive posterior tibial pulse bilateral, no edema, capillary refill less than 2 seconds Lungs: clear to auscultation bilateral, no rhonchi, no rales, no wheeze, no accessory muscle use Abdominal: soft, nontender to palpation, no guarding, no appreciable organomegaly, normal bowel sounds Ext: no gross muscle atrophy, muscle strength muscle strength 5 out of 5 in all 4 extremities, no contractures Neuro: CN II-XII grossly intact, light touch intact all 4 extremities, finger to nose within normal limits, Psych: Alert, oriented, appropriate affect Assessment/Plan: AML Thrombocytopenia - cycle number 2 - chemo managed by oncology - follow CBC, CMP Obesity with BMI 40.5 - encourage healthy choices and protein Hx of neutropenia Hx of recent COVID March 2022 Hx of recent pancytopenia DVT prophylaxis: SCDs Discussed with: Patient, and mother A total of 40 minutes was spent on the care of this complex patient more than 50% of the time was spent in counseling and care coordination. Past Medical History Past Medical History: Cancer Additional Past Medical History / Comment(s): AML, leukocytosis/thrombocytopenia, pancytopenia, coagulopathy/neuropenic fever, covid/pneumonia, anemia with blood transfusions. History of Any Multi-Drug Resistant Organisms: None Reported Past Surgical History: Adenoidectomy, Tonsillectomy Additional Past Surgical History / Comment(s): BMAs, picc/removed, PICC replaced Past Anesthesia/Blood Transfusion Reactions: No Reported Reaction Smoking Status: Never smoker - Past Family History Mother Family Medical History: Cancer Additional Family Medical History / Comment(s): breast CA Father Family Medical History: No Reported History Medications and Allergies Home Medications Medication Instructions Recorded Confirmed Type ALPRAZolam [Xanax] 0.5 mg PO TID PRN tab 03/27/22 04/24/22 Rx Cholecalciferol [Vitamin D3 (125 250 mcg PO DAILY #30 tab 03/27/22 04/24/22 Rx Mcg = 5000 Iu)] Allergies Allergy/AdvReac Type Severity Reaction Status Date / Time No Known Allergies Allergy Verified 04/24/22 09:27 Physical Exam Osteopathic Statement: *. No significant issues noted on an osteopathic structural exam other than those noted in the History and Physical/Consult. Vitals: Vital Signs Temp Pulse Resp BP Pulse Ox 04/24/22 14:42 98.1 F 77 16 151/94 97 04/24/22 12:46 98.3 F 80 16 148/84 98 04/24/22 09:22 98.2 F 92 16 163/98 96 Intake and Output 04/24/22 04/24/22 04/24/22 06:59 14:59 22:59 Other: Weight 120.7 kg Results CBC & Chem 7: 04/24/22 10:41 04/24/22 10:41 Labs: Abnormal Lab Results - Last 24 Hours (Table) 04/24/22 04/24/22 04/24/22 Range/Units 10:41 10:41 11:07 RDW 17.6 H (11.5-15.5) % Plt Count 120 L D (150-450) k/uL Eosinophils # (Manual) 2.80 H (0-0.7) k/uL Metamyelocytes # (Man) 0.10 H (0) k/uL Chloride 109 H (98-107) mmol/L Phosphorus 4.9 H (2.5-4.5) mg/dL
[2022-04-24] MEDS: CYTARABINE IV SCH (16:49)
[2022-04-24] MEDS: SODIUM CHLORIDE 0.9% IV SCH (16:49)
[2022-04-24] MEDS: SENNOSIDES-DOCUSATE SODIUM 1 EACH TAB PO SCH (21:19)
[2022-04-25] MEDS: FAMOTIDINE 20 MG/2 ML VIAL IVP SCH (04:31)
[2022-04-25] MEDS: DEXAMETHASONE SOD PHOSPHATE 10 MG/ML 1 ML VIAL IVP SCH (04:32)
[2022-04-25] MEDS: ONDANSETRON 16 MG in SODIUM CHLORIDE 0.9% 50 ML IVPB SCH (04:39)
[2022-04-25] MEDS: CYTARABINE IV SCH (04:56)
[2022-04-25] MEDS: SODIUM CHLORIDE 0.9% IV SCH (04:56)
[2022-04-25] MEDS: SODIUM CHLORIDE 0.9% 1,000 ML IV SCH ×4 (06:17→23:39)
[2022-04-25 07:32] LABS: Anisocytosis Slight; Basophils % (A) 0 %; Eosinophils % (A) 0 %; HCT 43.2 % (39.0-53.0); HGB 14.2 gm/dL (13.0-17.5); Lymphocytes # (A) 0.5 k/uL (1.0-4.8); Lymphocytes % (A) 4 %; MCH 29.5 pg (25.0-35.0); MCHC 32.8 g/dL (31.0-37.0); Mean Platelet Volume 8.3; Monocytes # (A) 0.3 k/uL (0-1.0); Monocytes % (A) 2 %; Neutrophils # (A) 12.9 k/uL (1.3-7.7); Neutrophils % (A) 94 %; Platelet Count 118 k/uL (150-450); RDW 17.1 % (11.5-15.5); WBC 13.7 k/uL (3.8-10.6)
[2022-04-25 07:46] LABS: ALT 32 U/L (4-49); AST 26 U/L (17-59); African American GFR (CKD) >90 (>60 ml/min/1.73 sqM); Albumin 4.1 g/dL (3.5-5.0); Albumin/Globulin Ratio 1.5; Alkaline Phosphatase 60 U/L (38-126); Anion Gap 9 mmol/L; Blood Urea Nitrogen 12 mg/dL (9-20); Carbon Dioxide 19 mmol/L (22-30); Chloride 109 mmol/L (98-107); Globulin 2.8 g/dL; Glucose 121 mg/dL (74-99); LDH 646 U/L (313-618); Magnesium 1.5 mg/dL (1.6-2.3); Non-African American GFR(CKD) >90 (>60 ml/min/1.73 sqM); Phosphorus 4.1 mg/dL (2.5-4.5); Potassium 3.9 mmol/L (3.5-5.1); Sodium 137 mmol/L (137-145); Total Protein 6.9 g/dL (6.3-8.2); Uric Acid 7.4 mg/dL (3.5-8.5)
[2022-04-25] MEDS: CHOLECALCIFEROL 125 MCG (5000 IU) TABLET PO SCH (08:25)
[2022-04-25] MEDS: SALT AND SODA MOUTHWASH 1,000 ML PO SCH ×3 (08:27→16:51)
[2022-04-25] MEDS: prednisoLONE ACETATE 1% OPHTH DROPS 5 ML BTL BOTH EYES SCH ×4 (08:27→23:40)
--- NOTE | 2022-04-25 08:32 | P.HPIM ---
History of Present Illness H&P Date: 04/24/22 Hospital follow up AML HPI : Akira presented [facility] with Leucocytosis (25 K) and Thrombocytopenia (36K), differential reported increase circulating blasts. Bone marrow on 02/25/22 revealed AML (80-90% blasts), Cytogentics revealed Trisomy 21, NGS negative for any genomic alteraions. He was started on induction Chemotherapy on 03/01/22 > 7/3 (Cytarabine 200mg/m2/Idamycin 12/mg/m2) > tolerated relatively well, had COVID infection > Recovered well, repeat bone marrow 03/30/22 > CR. He is fully healthy, denies smoking or ETOH use. Has 2 siblings, no family history of Hematologic disorders, mother has breast cancer. HE has completed induction with complete reponse and now admitted for cons olidation Number One. Review of Systems All systems: negative Past Medical History Past Medical History: Cancer Additional Past Medical History / Comment(s): AML, leukocytosis/thrombocytopenia, pancytopenia, coagulopathy/neuropenic fever, covid/pneumonia, anemia with blood transfusions. History of Any Multi-Drug Resistant Organisms: None Reported Past Surgical History: Adenoidectomy, Tonsillectomy Additional Past Surgical History / Comment(s): BMAs, picc/removed Past Anesthesia/Blood Transfusion Reactions: No Reported Reaction Smoking Status: Never smoker - Past Family History Mother Family Medical History: Cancer Additional Family Medical History / Comment(s): breast CA Father Family Medical History: No Reported History Medications and Allergies Home Medications Medication Instructions Recorded Confirmed Type ALPRAZolam [Xanax] 0.5 mg PO TID PRN tab 03/27/22 04/24/22 Rx Cholecalciferol [Vitamin D3 (125 250 mcg PO DAILY #30 tab 03/27/22 04/24/22 Rx Mcg = 5000 Iu)] Allergies Allergy/AdvReac Type Severity Reaction Status Date / Time No Known Allergies Allergy Verified 04/24/22 09:27 Physical Exam Vitals: Vital Signs Temp Pulse Resp BP Pulse Ox 04/24/22 14:42 98.1 F 77 16 151/94 97 04/24/22 12:46 98.3 F 80 16 148/84 98 04/24/22 09:22 98.2 F 92 16 163/98 96 Intake and Output 0704/24/22 04/24/22 06:59 14:59 22:59 Other: Weight 120.7 kg - EENT Eyes: EOMI ENT: NA/AT - Respiratory Respiratory: bilateral: CTA - Cardiovascular Rhythm: regular - Gastrointestinal General gastrointestinal: soft - Integumentary Integumentary: pale, Rash papular - Neurologic Neurologic: CNII-XII intact - Musculoskeletal Musculoskeletal: generalized weakness, strength equal bilaterally - Psychiatric Psychiatric: A&O x's 3, appropriate affect, intact judgment & insight Results CBC & Chem 7: 04/25/22 06:46 04/25/22 06:46 Labs: Abnormal Lab Results - Last 24 Hours (Table) 04/24/22 04/24/22 04/24/22 Range/Units 10:41 10:41 11:07 RDW 17.6 H (11.5-15.5) % Plt Count 120 L D (150-450) k/uL Chloride 109 H (98-107) mmol/L Phosphorus 4.9 H (2.5-4.5) mg/dL Thrombosis Risk Factor Assmnt - Choose All That Apply Any of the Below Risk Factors Present?: Yes Each Factor Represents 1 point: Obesity (BMI >25) Other Risk Factors: Yes Each Risk Factor Represents 2 Points: Malignancy Other congenital or acquired thrombophilia - If yes, enter type in comment: No Thrombosis Risk Factor Assessment Total Risk Factor Score: 3 Thrombosis Risk Factor Assessment Level: Moderate Risk Assessment and Plan Plan: (1) AML (acute myelogenous leukemia) Narrative/Plan: New Diagnosis in March 2022 Status Post Induction with 7 plus 3 Antiemetics Daily labs Close monitoring Cytogenics with one favorable, one not favorable. BM with remission Now admitted for consolidation cycle one Status: Acute Priority: High Code(s): C92.00 - ACUTE MYELOBLASTIC LEUKEMIA, NOT HAVING ACHIEVED REMISSION SNOMED Code(s): 68826359 Dr. Pinone3st: I have completed the full history and physical and developed the above impression and plan, agree with dictation, dictated as a scribe.
--- NOTE | 2022-04-25 14:58 | P.PN ---
Subjective Progress Note Date: 04/25/22 (delayed charting seen at 0740) Patient is a 27-year-old male with known acute myelogenous leukemia here for cycle 2 of chemo. During his last hospital stay was quite prolonged. He was initially diagnosed with acute myelogenous leukemia, he then developed febrile neutropenia and was found to have a staph hominis bacteremia, he then did develop COVID-19. He has completed all treatment for his bacteremia. He has had a bone marrow biopsy since last hospital stay. He had a PICC line placed in his right upper extremity this morning. Patient seen and examined at bedside. He is feeling well. Denies any nausea, vomiting, diarrhea, chest pain, shortness of breath. Mother is at bedside and all questions answered. General: nontoxic, no distress, appears at stated age Derm: warm, dry Head: atraumatic, normocephalic, symmetric Eyes: EOMI, no lid lag, anicteric sclera Mouth: no lip lesion, mucus membranes moist Cardiovascular: S1S2 reg, no murmur, positive posterior tibial pulse bilateral, Lungs: CTA bilateral, no rhonchi, no rales , no accessory muscle use Abdominal: soft, nontender to palpation, no guarding, no appreciable organomegaly Ext: no gross muscle atrophy, no edema, no contractures Neuro: CN II-XI grossly intact, no focal neuro deficits Psych: Alert, oriented, appropriate affect Assessment/Plan: AML Thrombocytopenia - cycle number 2, D # 2 - chemo managed by oncology - follow CBC, CMP Obesity with BMI 40.5 - encourage healthy choices and protein Hx of neutropenia Hx of recent COVID March 2022 Hx of recent pancytopenia Objective - Vital Signs Vital signs: Vital Signs Temp 97.9 F 04/25/22 11:25 Pulse 86 04/25/22 11:25 Resp 18 04/25/22 11:25 BP 129/76 04/25/22 11:25 Pulse Ox 96 04/25/22 11:25 FiO2 Intake & Output 04/24/22 04/25/22 04/25/22 18:59 06:59 18:59 Intake Total 500 2350 Balance 500 2350 Weight 120.7 kg Intake: Intake, IV Titration 500 2350 Amount Cytarabine/Pf 7,000 mg In 500 Sodium Chloride 0.9% 500 ml 500 ml @ 190 mls/hr IV Q12H [facility] Rx#:[id number] Ondansetron 16 mg In 50 50 Sodium Chloride 0.9% 50 ml @ 232 mls/hr IVPB Q48H [facility] Rx#:[id number] Sodium Chloride 0.9% 1, 450 1800 000 ml @ 150 mls/hr IV . Q6H40M [facility] Rx#:[id number] Other: Voiding Method Toilet - Labs CBC & Chem 7: 04/25/22 06:46 04/25/22 06:46 Labs: Abnormal Lab Results - Last 24 Hours (Table) 04/24/22 04/24/22 04/25/22 Range/Units 10:41 11:07 06:46 WBC (3.8-10.6) k/uL RDW (11.5-15.5) % Plt Count (150-450) k/uL Neutrophils # (1.3-7.7) k/uL Lymphocytes # (1.0-4.8) k/uL Eosinophils # (Manual) 2.80 H (0-0.7) k/uL Metamyelocytes # (Man) 0.10 H (0) k/uL Chloride 109 H (98-107) mmol/L Carbon Dioxide 19 L (22-30) mmol/L Creatinine 0.65 L (0.66-1.25) mg/dL Glucose 121 H (74-99) mg/dL Magnesium 1.5 L (1.6-2.3) mg/dL Lactate Dehydrogenase 646 H (313-618) U/L Vitamin D 25-Hydroxy 29.7 L (30.0-100.0) ng/mL 04/25/22 Range/Units 06:46 WBC 13.7 H (3.8-10.6) k/uL RDW 17.1 H (11.5-15.5) % Plt Count 118 L (150-450) k/uL Neutrophils # 12.9 H (1.3-7.7) k/uL Lymphocytes # 0.5 L (1.0-4.8) k/uL Eosinophils # (Manual) (0-0.7) k/uL Metamyelocytes # (Man) (0) k/uL Chloride (98-107) mmol/L Carbon Dioxide (22-30) mmol/L Creatinine (0.66-1.25) mg/dL Glucose (74-99) mg/dL Magnesium (1.6-2.3) mg/dL Lactate Dehydrogenase (313-618) U/L Vitamin D 25-Hydroxy (30.0-100.0) ng/mL
[2022-04-25] MEDS: MAGNESIUM SULFATE-D5W PMX 1 GM in DEXTROSE/WATER 1 100ML.BAG IVPB SCH ×2 (15:35→16:49)
--- NOTE | 2022-04-25 16:36 | P.PN ---
Subjective Progress Note Date: 04/25/22 Principal diagnosis: AML, first consolidation In f/u pt doing ok, no acute c/o-fever, oral irritation, N,V, cough, abd pain, constipation, diarrhea, rash, swelling or pain to reports. Objective - Vital Signs Vital signs: Vital Signs Temp 97.9 F 04/25/22 11:25 Pulse 86 04/25/22 11:25 Resp 18 04/25/22 11:25 BP 129/76 04/25/22 11:25 Pulse Ox 96 04/25/22 11:25 FiO2 Intake & Output 04/24/22 04/25/22 04/25/22 18:59 06:59 18:59 Intake Total 500 2350 Balance 500 2350 Weight 120.7 kg Intake: Intake, IV Titration 500 2350 Amount Cytarabine/Pf 7,000 mg In 500 Sodium Chloride 0.9% 500 ml 500 ml @ 190 mls/hr IV Q12H [facility] Rx#:[id number] Ondansetron 16 mg In 50 50 Sodium Chloride 0.9% 50 ml @ 232 mls/hr IVPB Q48H [facility] Rx#:[id number] Sodium Chloride 0.9% 1, 450 1800 000 ml @ 150 mls/hr IV . Q6H40M [facility] Rx#:[id number] Other: Voiding Method Toilet - Constitutional General appearance: Present: cooperative, no acute distress, obese - EENT Eyes: Present: anicteric sclerae, EOMI ENT: Present: hearing grossly normal, normal oropharynx - Respiratory Respiratory: bilateral: CTA - Cardiovascular Rhythm: regular Heart sounds: normal: S1, S2 Abnormal Heart Sounds: Absent: systolic murmur, diastolic murmur, rub, S3 Gallop, S4 Gallop, click, other - Peripheral edema leg Peripheral Edema: bilateral: None - Gastrointestinal General gastrointestinal: Present: normal bowel sounds, soft. Absent: absent bowel sounds, decreased bowel sounds, distended, hepatomegaly, hyperactive bowel sounds, organomegaly, rigid, scaphoid, splenomegaly, tenderness, umbilical hernia, ventral hernia - Integumentary Integumentary: Present: normal - Neurologic Neurologic: Present: CNII-XII intact - Musculoskeletal Musculoskeletal: Present: strength equal bilaterally - Psychiatric Psychiatric: Present: A&O x's 3, appropriate affect, intact judgment & insight - Labs CBC & Chem 7: 04/25/22 06:46 04/25/22 06:46 Labs: Abnormal Lab Results - Last 24 Hours (Table) 04/24/22 04/24/22 04/25/22 Range/Units 10:41 11:07 06:46 WBC (3.8-10.6) k/uL RDW (11.5-15.5) % Plt Count (150-450) k/uL Neutrophils # (1.3-7.7) k/uL Lymphocytes # (1.0-4.8) k/uL Eosinophils # (Manual) 2.80 H (0-0.7) k/uL Metamyelocytes # (Man) 0.10 H (0) k/uL Chloride 109 H (98-107) mmol/L Carbon Dioxide 19 L (22-30) mmol/L Creatinine 0.65 L (0.66-1.25) mg/dL Glucose 121 H (74-99) mg/dL Magnesium 1.5 L (1.6-2.3) mg/dL Lactate Dehydrogenase 646 H (313-618) U/L Vitamin D 25-Hydroxy 29.7 L (30.0-100.0) ng/mL 04/25/22 Range/Units 06:46 WBC 13.7 H (3.8-10.6) k/uL RDW 17.1 H (11.5-15.5) % Plt Count 118 L (150-450) k/uL Neutrophils # 12.9 H (1.3-7.7) k/uL Lymphocytes # 0.5 L (1.0-4.8) k/uL Eosinophils # (Manual) (0-0.7) k/uL Metamyelocytes # (Man) (0) k/uL Chloride (98-107) mmol/L Carbon Dioxide (22-30) mmol/L Creatinine (0.66-1.25) mg/dL Glucose (74-99) mg/dL Magnesium (1.6-2.3) mg/dL Lactate Dehydrogenase (313-618) U/L Vitamin D 25-Hydroxy (30.0-100.0) ng/mL Assessment and Plan (1) AML (acute myelogenous leukemia) Current Visit: Yes Status: Acute Priority: High Code(s): C92.00 - ACUTE MYELOBLASTIC LEUKEMIA, NOT HAVING ACHIEVED REMISSION SNOMED Code(s): 31603075 Plan: Cont chemo without adjustment Cont supportive meds Labs daily Ambulate multiple times daily [place] fluids Oral care Daily f/u Doctor attests: I performed a history and physical examination of this patient, developed impression and plan of care. Discussed with dictator. I agree with dictators note, documented as a scribe.
[2022-04-25] MEDS: SENNOSIDES-DOCUSATE SODIUM 1 EACH TAB PO SCH (20:14)
[2022-04-26 06:33] LABS: Anisocytosis Slight; HCT 40.5 % (39.0-53.0); HGB 12.9 gm/dL (13.0-17.5); MCH 29.1 pg (25.0-35.0); MCHC 31.7 g/dL (31.0-37.0); MCV 91.8 fL (80.0-100.0); Mean Platelet Volume 8.4; Platelet Count 127 k/uL (150-450); RBC 4.41 m/uL (4.30-5.90); RDW 17.4 % (11.5-15.5)
[2022-04-26 06:51] LABS: ALT 29 U/L (4-49); AST 26 U/L (17-59); African American GFR (CKD) >90 (>60 ml/min/1.73 sqM); Albumin 3.8 g/dL (3.5-5.0); Albumin/Globulin Ratio 1.5; Alkaline Phosphatase 54 U/L (38-126); Anion Gap 7 mmol/L; Blood Urea Nitrogen 11 mg/dL (9-20); Calcium 8.7 mg/dL (8.4-10.2); Carbon Dioxide 23 mmol/L (22-30); Chloride 108 mmol/L (98-107); Globulin 2.6 g/dL; Glucose 93 mg/dL (74-99); LDH 513 U/L (313-618); Non-African American GFR(CKD) >90 (>60 ml/min/1.73 sqM); Potassium 3.6 mmol/L (3.5-5.1); Sodium 138 mmol/L (137-145); Total Bilirubin 1.1 mg/dL (0.2-1.3); Total Protein 6.4 g/dL (6.3-8.2); Uric Acid 5.9 mg/dL (3.5-8.5)
[2022-04-26] MEDS: CHOLECALCIFEROL 125 MCG (5000 IU) TABLET PO SCH (09:06)
[2022-04-26] MEDS: SALT AND SODA MOUTHWASH 1,000 ML PO SCH ×3 (09:06→16:34)
[2022-04-26] MEDS: prednisoLONE ACETATE 1% OPHTH DROPS 5 ML BTL BOTH EYES SCH ×4 (09:06→20:37)
[2022-04-26] MEDS: SODIUM CHLORIDE 0.9% 1,000 ML IV SCH ×3 (09:07→22:08)
--- NOTE | 2022-04-26 10:49 | P.PN ---
Subjective Progress Note Date: 04/26/22 Principal diagnosis: AML Timed chemo Timed chemo consolidation #1 Day #3 Tolerating well Objective - Vital Signs Vital signs: Vital Signs Temp 97.5 F L 04/26/22 08:00 Pulse 69 04/26/22 08:40 Resp 16 04/26/22 08:40 BP 144/84 04/26/22 08:00 Pulse Ox 97 04/26/22 08:00 FiO2 Intake & Output 04/25/22 04/26/22 04/26/22 18:59 06:59 18:59 Intake Total 1700 1860 Balance 1700 1860 Intake: Intake, IV Titration 1700 1500 Amount Magnesium Sulfate-D5w Pmx 200 1 gm In Dextrose/Water 1 100ml.bag @ 100 mls/hr IVPB Q1H [facility] Rx#: [id number] Sodium Chloride 0.9% 1, 1500 1500 000 ml @ 150 mls/hr IV . Q6H40M [facility] Rx#:[id number] Oral 360 Other: Voiding Method Toilet Toilet Toilet # Voids 2 - Exam - Constitutional General appearance: Present: cooperative, no acute distress, obese - EENT Eyes: Present: anicteric sclerae, EOMI ENT: Present: hearing grossly normal, normal oropharynx - Respiratory Respiratory: bilateral: CTA - Cardiovascular Rhythm: regular Heart sounds: normal: S1, S2 Abnormal Heart Sounds: Absent: systolic murmur, diastolic murmur, rub, S3 Gallop, S4 Gallop, click, other - Peripheral edema leg Peripheral Edema: bilateral: None - Gastrointestinal General gastrointestinal: Present: normal bowel sounds, soft. Absent: absent bowel sounds, decreased bowel sounds, distended, hepatomegaly, hyperactive bowel sounds, organomegaly, rigid, scaphoid, splenomegaly, tenderness, umbilical hernia, ventral hernia - Integumentary Integumentary: Present: normal - Neurologic Neurologic: Present: CNII-XII intact - Musculoskeletal Musculoskeletal: Present: strength equal bilaterally - Psychiatric Psychiatric: Present: A&O x's 3, appropriate affect, intact judgment & insight - Labs CBC & Chem 7: 04/26/22 05:12 04/26/22 05:12 Labs: Abnormal Lab Results - Last 24 Hours (Table) 04/26/22 04/26/22 Range/Units 05:12 05:12 WBC 11.0 H (3.8-10.6) k/uL Hgb 12.9 L (13.0-17.5) gm/dL RDW 17.4 H (11.5-15.5) % Plt Count 127 L (150-450) k/uL Chloride 108 H (98-107) mmol/L Assessment and Plan Plan: (1) AML (acute myelogenous leukemia) Narrative/Plan: New Diagnosis in March 2022 Status Post Induction with 7 plus 3 Antiemetics Daily labs Close monitoring Cytogenics with one favorable, one not favorable. BM with remission Now admitted for consolidation cycle one, Day #3 to continue Daily CBC with Diff, CMP, Mag, Uric acid, LDH Status: Acute Priority: High Code(s): C92.00 - ACUTE MYELOBLASTIC LEUKEMIA, NOT HAVING ACHIEVED REMISSION SNOMED Code(s): 12781140 Dr. Waller: I have completed the full history and physical and developed the above impression and plan, agree with dictation, dictated as a scribe.
--- NOTE | 2022-04-26 11:22 | P.PN ---
Subjective Progress Note Date: 04/26/22 Patient is a 27-year-old male with known acute myelogenous leukemia here for cycle 2 of chemo. During his last hospital stay was quite prolonged. He was initially diagnosed with acute myelogenous leukemia, he then developed febrile neutropenia and was found to have a staph hominis bacteremia, he then did develop COVID-19. He has completed all treatment for his bacteremia. He has had a bone marrow biopsy since last hospital stay. He had a PICC line placed in his right upper extremity this morning. Patient seen and examined at bedside. He is feeling well other than tired, no mouth sores, no nausea, no vomiting. General: nontoxic, no distress, appears at stated age Derm: warm, dry Head: atraumatic, normocephalic, symmetric Eyes: EOMI, no lid lag, anicteric sclera Mouth: no lip lesion, mucus membranes moist Cardiovascular: S1S2 reg, no murmur, positive posterior tibial pulse bilateral, Lungs: CTA bilateral, no rhonchi, no rales , no accessory muscle use Abdominal: soft, nontender to palpation, no guarding, no appreciable organomegaly Ext: no gross muscle atrophy, no edema, no contractures Neuro: CN II-XI grossly intact, no focal neuro deficits Psych: Alert, oriented, appropriate affect Assessment/Plan: AML Thrombocytopenia 5 Anemia - consolidation #1, D # 2 - chemo managed by oncology - follow CBC, CMP Obesity with BMI 40.5 - encourage healthy choices and protein Hx of neutropenia Hx of recent COVID March 2022 Hx of recent pancytopenia Objective - Vital Signs Vital signs: Vital Signs Temp 97.5 F L 04/26/22 08:00 Pulse 69 04/26/22 08:40 Resp 16 04/26/22 08:40 BP 144/84 04/26/22 08:00 Pulse Ox 97 04/26/22 08:00 FiO2 Intake & Output 04/25/22 04/26/22 04/26/22 18:59 06:59 18:59 Intake Total 1701859 Balance 170 1860 Intake: Intake, IV Titration 1700 1500 Amount Magnesium Sulfate-D5w Pmx 200 1 gm In Dextrose/Water 1 100ml.bag @ 100 mls/hr IVPB Q1H [facility] Rx#: [id number] Sodium Chloride 0.9% 1, 1500 1500 000 ml @ 150 mls/hr IV . Q6H40M [facility] Rx#:[id number] Oral 360 Other: Voiding Method Toilet Toilet Toilet # Voids 2 - Labs CBC & Chem 7: 04/26/22 05:12 04/26/22 05:12 Labs: Abnormal Lab Results - Last 24 Hours (Table) 04/26/22 04/26/22 Range/Units 05:12 05:12 WBC 11.0 H (3.8-10.6) k/uL Hgb 12.9 L (13.0-17.5) gm/dL RDW 17.4 H (11.5-15.5) % Plt Count 127 L (150-450) k/uL Chloride 108 H (98-107) mmol/L
[2022-04-26] MEDS: DEXAMETHASONE SOD PHOSPHATE 10 MG/ML 1 ML VIAL IVP SCH (15:14)
[2022-04-26] MEDS: FAMOTIDINE 20 MG/2 ML VIAL IVP SCH (15:14)
[2022-04-26] MEDS: ONDANSETRON 16 MG in SODIUM CHLORIDE 0.9% 50 ML IVPB SCH (15:15)
[2022-04-26] MEDS: SODIUM CHLORIDE 0.9% IV SCH (16:26)
[2022-04-26] MEDS: CYTARABINE IV SCH (16:26)
[2022-04-26] MEDS: SENNOSIDES-DOCUSATE SODIUM 1 EACH TAB PO SCH (20:37)
[2022-04-27] MEDS: CYTARABINE IV SCH (04:30)
[2022-04-27] MEDS: SODIUM CHLORIDE 0.9% IV SCH (04:30)
[2022-04-27] MEDS: SODIUM CHLORIDE 0.9% 1,000 ML IV SCH ×3 (04:30→16:51)
[2022-04-27] MEDS: CHOLECALCIFEROL 125 MCG (5000 IU) TABLET PO SCH (08:22)
[2022-04-27] MEDS: SALT AND SODA MOUTHWASH 1,000 ML PO SCH ×3 (08:23→16:52)
[2022-04-27] MEDS: prednisoLONE ACETATE 1% OPHTH DROPS 5 ML BTL BOTH EYES SCH ×4 (08:23→22:01)
[2022-04-27 09:31] LABS: Anisocytosis Slight; HCT 38.8 % (39.0-53.0); HGB 12.9 gm/dL (13.0-17.5); MCH 30.4 pg (25.0-35.0); MCHC 33.4 g/dL (31.0-37.0); MCV 91.3 fL (80.0-100.0); Mean Platelet Volume 8.1; Platelet Count 129 k/uL (150-450); RBC 4.25 m/uL (4.30-5.90); RDW 17.2 % (11.5-15.5); WBC 10.4 k/uL (3.8-10.6)
[2022-04-27 10:09] LABS: ALT 32 U/L (4-49); AST 22 U/L (17-59); African American GFR (CKD) >90 (>60 ml/min/1.73 sqM); Albumin/Globulin Ratio 1.5; Alkaline Phosphatase 46 U/L (38-126); Anion Gap 5 mmol/L; Blood Urea Nitrogen 12 mg/dL (9-20); Calcium 8.8 mg/dL (8.4-10.2); Carbon Dioxide 24 mmol/L (22-30); Chloride 109 mmol/L (98-107); Globulin 2.6 g/dL; Glucose 95 mg/dL (74-99); LDH 348 U/L (313-618); Magnesium 1.9 mg/dL (1.6-2.3); Non-African American GFR(CKD) >90 (>60 ml/min/1.73 sqM); Phosphorus 4.4 mg/dL (2.5-4.5); Sodium 138 mmol/L (137-145); Total Bilirubin 2.1 mg/dL (0.2-1.3); Total Protein 6.6 g/dL (6.3-8.2)
[2022-04-27] MEDS: ALPRAZolam 0.5 MG TAB PO PRN (12:51)
[2022-04-27] MEDS ORDERED: hydrOXYzine HCL 25 MG TAB PO PRN (14:10)
--- NOTE | 2022-04-27 14:12 | P.PN ---
Subjective Progress Note Date: 04/27/22 Principal diagnosis: AML Timed chemo Day 4 of Consolidation Number One for AML, he is tolerating well with exception of itching. Atarax has been ordered Objective - Vital Signs Vital signs: Vital Signs Temp 97.6 F 04/27/22 12:00 Pulse 63 04/27/22 12:00 Resp 20 04/27/22 12:00 BP 146/89 04/27/22 12:00 Pulse Ox 95 04/27/22 12:00 FiO2 Intake & Output 04/26/22 04/27/22 04/27/22 18:59 06:59 18:59 Intake Total 360 Balance 360 Intake: Oral 360 Other: Voiding Method Toilet Toilet Toilet # Voids 4 3 - Exam - Constitutional General appearance: Present: cooperative, no acute distress, obese - EENT Eyes: Present: anicteric sclerae, EOMI ENT: Present: hearing grossly normal, normal oropharynx - Respiratory Respiratory: bilateral: CTA - Cardiovascular Rhythm: regular Heart sounds: normal: S1, S2 Abnormal Heart Sounds: Absent: systolic murmur, diastolic murmur, rub, S3 Gallop, S4 Gallop, click, other - Peripheral edema leg Peripheral Edema: bilateral: None - Gastrointestinal General gastrointestinal: Present: normal bowel sounds, soft. Absent: absent bowel sounds, decreased bowel sounds, distended, hepatomegaly, hyperactive bowel sounds, organomegaly, rigid, scaphoid, splenomegaly, tenderness, umbilical hernia, ventral hernia - Integumentary Integumentary: Present: normal - Neurologic Neurologic: Present: CNII-XII intact - Musculoskeletal Musculoskeletal: Present: strength equal bilaterally - Psychiatric Psychiatric: Present: A&O x's 3, appropriate affect, intact judgment & insight - Labs CBC & Chem 7: 04/27/22 09:08 04/27/22 09:08 Labs: Abnormal Lab Results - Last 24 Hours (Table) 04/27/22 04/27/22 Range/Units 09:08 09:08 RBC 4.25 L (4.30-5.90) m/uL Hgb 12.9 L (13.0-17.5) gm/dL Hct 38.8 L (39.0-53.0) % RDW 17.2 H (11.5-15.5) % Plt Count 129 L (150-450) k/uL Chloride 109 H (98-107) mmol/L Creatinine 0.62 L (0.66-1.25) mg/dL Total Bilirubin 2.1 H (0.2-1.3) mg/dL Assessment and Plan Plan: (1) AML (acute myelogenous leukemia) Narrative/Plan: New Diagnosis in March 2022 Status Post Induction with 7 plus 3 Antiemetics Daily labs Close monitoring Cytogenics with one favorable, one not favorable. BM with remission Now admitted for consolidation cycle one, Day # to continue Daily CBC with Diff, CMP, Mag, Uric acid, LDH Atarax for itching TRANSFUSIONS ARE TO BE IRRADIATED PLEASE ifplatelets less than 10K or Hg less than 7 Status: Acute Priority: High Code(s): C92.00 - ACUTE MYELOBLASTIC LEUKEMIA, NOT HAVING ACHIEVED REMISSION SNOMED Code(s): 44747387 Dr. Waller: I have completed the full history and physical and developed the above impression and plan, agree with dictation, dictated as a scribe.
[2022-04-27] MEDS: SENNOSIDES-DOCUSATE SODIUM 1 EACH TAB PO SCH (22:00)
[2022-04-28] MEDS: SODIUM CHLORIDE 0.9% 1,000 ML IV SCH ×4 (02:48→21:35)
[2022-04-28] MEDS: CHOLECALCIFEROL 125 MCG (5000 IU) TABLET PO SCH (07:59)
[2022-04-28] MEDS: prednisoLONE ACETATE 1% OPHTH DROPS 5 ML BTL BOTH EYES SCH ×4 (07:59→21:34)
[2022-04-28] MEDS: SALT AND SODA MOUTHWASH 1,000 ML PO SCH ×3 (07:59→17:48)
--- NOTE | 2022-04-28 08:54 | P.PN ---
Subjective Progress Note Date: 04/28/22 Principal diagnosis: AML Patient is a 27-year-old male with known acute myelogenous leukemia here for cycle 2 of chemo. During his last hospital stay was quite prolonged. He was initially diagnosed with acute myelogenous leukemia, he then developed febrile neutropenia and was found to have a staph hominis bacteremia, he then did develop COVID-19. He has completed all treatment for his bacteremia. He has had a bone marrow biopsy since last hospital stay. He had a PICC line placed in his right upper extremity this admission Patient seen and examined at bedside. Doing well, having some itching but getting better, one loose BM his morning. No vomiting. General: nontoxic, no distress, appears at stated age Derm: warm, dry, erythema over anterior chest area no lesions Head: atraumatic, normocephalic, symmetric Eyes: EOMI, no lid lag, anicteric sclera Mouth: no lip lesion, mucus membranes moist Cardiovascular: S1S2 reg, no murmur, positive posterior tibial pulse bilateral, Lungs: CTA bilateral, no rhonchi, no rales , no accessory muscle use Abdominal: soft, nontender to palpation, no guarding, no appreciable organomegaly Ext: no gross muscle atrophy, no edema, no contractures Neuro: CN II-XI grossly intact, no focal neuro deficits Psych: Alert, oriented, appropriate affect Assessment/Plan: AML Thrombocytopenia, stable Anemia - Consolidation Cycyle 1 - chemo managed by oncology - follow CBC, CMP Obesity with BMI 40.5 - encourage healthy choices and protein Hx of neutropenia Hx of recent COVID March 2022 Hx of recent pancytopenia Doing well. Objective - Vital Signs Vital signs: Vital Signs Temp 97.7 F 04/28/22 04:20 Pulse 62 04/28/22 04:20 Resp 16 04/28/22 04:20 BP 152/82 04/28/22 04:20 Pulse Ox 99 04/28/22 04:20 FiO2 Intake & Output 04/27/22 04/28/22 04/28/22 18:59 06:59 18:59 Intake Total 360 1000 Balance 360 1000 Intake: Intake, IV Titration 1000 Amount Sodium Chloride 0.9% 1, 1000 000 ml @ 150 mls/hr IV . Q6H40M [facility] Rx#:[id number] Oral 360 Other: Voiding Method Toilet Toilet # Voids 5 - Labs CBC & Chem 7: 04/27/22 09:08 04/27/22 09:08 Labs: Abnormal Lab Results - Last 24 Hours (Table) 04/27/22 04/27/22 Range/Units 09:08 09:08 RBC 4.25 L (4.30-5.90) m/uL Hgb 12.9 L (13.0-17.5) gm/dL Hct 38.8 L (39.0-53.0) % RDW 17.2 H (11.5-15.5) % Plt Count 129 L (150-450) k/uL Chloride 109 H (98-107) mmol/L Creatinine 0.62 L (0.66-1.25) mg/dL Total Bilirubin 2.1 H (0.2-1.3) mg/dL
[2022-04-28 09:03] LABS: African American GFR (CKD) 149.9 (60.0-200.0); Albumin 4.1 g/dL (3.8-4.9); Albumin/Globulin Ratio 1.86 (1.60-3.17); Anion Gap 9.8 mmol/L (10.00-18.00); Blood Urea Nitrogen 11.9 mg/dL (9.0-27.0); Calcium 8.8 mg/dL (8.7-10.3); Carbon Dioxide 24.2 mmol/L (20.0-27.5); Globulin 2.2 g/dL (1.6-3.3); Magnesium 2.1 mg/dL (1.5-2.4); Non-African American GFR(CKD) 129.3 (60.0-200.0); Phosphorus 3.9 mg/dL (2.4-5.1); Potassium 3.8 mmol/L (3.5-5.5); Total Bilirubin 1.5 mg/dL (0.30-1.20); Total Protein 6.3 g/dL (6.2-8.2); Uric Acid 4.8 mg/dL (3.7-8.7)
[2022-04-28 09:41] LABS: Basophils # (A) 0.02 X 10*3/uL (0.00-0.10); Basophils % (A) 0.3 %; Eosinophils # (A) 0.07 X 10*3/uL (0.04-0.35); HGB 12.1 g/dL (13.0-17.0); Immature Grans, Automated 0.3 %; Lymphocytes # (A) 1.54 X 10*3/uL (0.90-5.00); Lymphocytes % (A) 21.1 %; MCH 28.7 pg (27.0-32.0); MCHC 31.8 g/dL (32.0-37.0); Mean Platelet Volume 11.9 fL (9.5-12.2); Monocytes # (A) 0.19 X 10*3/uL (0.20-1.00); Monocytes % (A) 2.6 %; NRBC Per 100 WBC 0 /100 WBCS (0.0-0.0); Neutrophils # (A) 5.47 X 10*3/uL (1.80-7.70); Neutrophils % (A) 74.7 %; Platelet Count 138 X 10*3/uL (140-440); RBC 4.22 X 10*6/uL (4.40-5.60); RDW 16.6 % (11.5-14.5); WBC 7.31 X 10*3/uL (4.50-10.00)
[2022-04-28] MEDS: ONDANSETRON 16 MG in SODIUM CHLORIDE 0.9% 50 ML IVPB SCH (15:10)
[2022-04-28] MEDS: FAMOTIDINE 20 MG/2 ML VIAL IVP SCH (15:10)
[2022-04-28] MEDS: DEXAMETHASONE SOD PHOSPHATE 10 MG/ML 1 ML VIAL IVP SCH (15:10)
[2022-04-28] MEDS: CYTARABINE IV SCH (16:20)
[2022-04-28] MEDS: SODIUM CHLORIDE 0.9% IV SCH (16:20)
--- NOTE | 2022-04-28 20:30 | P.PN ---
Subjective Progress Note Date: 04/28/22 Principal diagnosis: AML Timed chemo Tolerating chemo well, Labs are stable Objective - Vital Signs Vital signs: Vital Signs Temp 97.9 F 04/28/22 08:00 Pulse 60 04/28/22 08:00 Resp 16 04/28/22 08:00 BP 127/82 04/28/22 08:00 Pulse Ox 97 04/28/22 08:00 FiO2 Intake & Output 04/27/22 04/28/22 04/28/22 18:59 06:59 18:59 Intake Total 360 1000 Balance 360 1000 Intake: Intake, IV Titration 1000 Amount Sodium Chloride 0.9% 1, 1000 000 ml @ 150 mls/hr IV . Q6H40M [facility] Rx#:[id number] Oral 360 Other: Voiding Method Toilet Toilet Toilet # Voids 5 - Exam - Constitutional General appearance: Present: cooperative, no acute distress, obese - EENT Eyes: Present: anicteric sclerae, EOMI ENT: Present: hearing grossly normal, normal oropharynx - Respiratory Respiratory: bilateral: CTA - Cardiovascular Rhythm: regular Heart sounds: normal: S1, S2 Abnormal Heart Sounds: Absent: systolic murmur, diastolic murmur, rub, S3 Gallop, S4 Gallop, click, other - Peripheral edema leg Peripheral Edema: bilateral: None - Gastrointestinal General gastrointestinal: Present: normal bowel sounds, soft. Absent: absent bowel sounds, decreased bowel sounds, distended, hepatomegaly, hyperactive bowel sounds, organomegaly, rigid, scaphoid, splenomegaly, tenderness, umbilical hernia, ventral hernia - Integumentary Integumentary: Present: normal - Neurologic Neurologic: Present: CNII-XII intact - Musculoskeletal Musculoskeletal: Present: strength equal bilaterally - Psychiatric Psychiatric: Present: A&O x's 3, appropriate affect, intact judgment & insight - Labs CBC & Chem 7: 04/28/22 05:10 04/28/22 05:10 Labs: Abnormal Lab Results - Last 24 Hours (Table) 04/28/22 04/28/22 Range/Units 05:10 05:10 RBC 4.22 L (4.40-5.60) X 10*6/uL Hgb 12.1 L (13.0-17.0) g/dL Hct 38.0 L (39.6-50.0) % MCHC 31.8 L (32.0-37.0) g/dL RDW 16.6 H (11.5-14.5) % Plt Count 138 L (140-440) X 10*3/uL Plt Count Comment DECREASED A Monocytes # 0.19 L (0.20-1.00) X 10*3/uL Anion Gap 9.80 L (10.00-18.00) mmol/L Total Bilirubin 1.50 H (0.30-1.20) mg/dL Assessment and Plan Plan: (1) AML (acute myelogenous leukemia) Narrative/Plan: New Diagnosis in March 2022 Status Post Induction with 7 plus 3 Antiemetics Daily labs Close monitoring Cytogenics with one favorable, one not favorable. BM with remission Now admitted for consolidation cycle one, Day #5 to continue Daily CBC with Diff, CMP, Mag, Uric acid, LDH Atarax for itching TRANSFUSIONS ARE TO BE IRRADIATED PLEASE ifplatelets less than 10K or Hg less t torres 7 Status: Acute Priority: High Code(s): C92.00 - ACUTE MYELOBLASTIC LEUKEMIA, NOT HAVING ACHIEVED REMISSION SNOMED Code(s): 90949091 Dr. Waller: I have completed the full history and physical and developed the above impression and plan, agree with dictation, dictated as a scribe.
[2022-04-28] MEDS: SENNOSIDES-DOCUSATE SODIUM 1 EACH TAB PO SCH (21:34)
[2022-04-29] MEDS: SODIUM CHLORIDE 0.9% 1,000 ML IV SCH ×2 (03:51→11:03)
[2022-04-29 04:00] VITALS: TEMP 98.1
[2022-04-29] MEDS: SODIUM CHLORIDE 0.9% IV SCH (04:16)
[2022-04-29] MEDS: CYTARABINE IV SCH (04:16)
[2022-04-29] MEDS: SALT AND SODA MOUTHWASH 1,000 ML PO SCH (08:29)
[2022-04-29] MEDS: CHOLECALCIFEROL 125 MCG (5000 IU) TABLET PO SCH (08:29)
[2022-04-29 08:32] VITALS: BP 143/73; PULSE 66; RESP 18
[2022-04-29 10:36] VITALS: BMI 40.4
--- NOTE | 2022-04-29 11:20 | P.PN ---
Subjective Progress Note Date: 04/29/22 Principal diagnosis: AML Patient is a 27-year-old male with known acute myelogenous leukemia here for cycle 2 of chemo. During his last hospital stay was quite prolonged. He was initially diagnosed with acute myelogenous leukemia, he then developed febrile neutropenia and was found to have a staph hominis bacteremia, he then did develop COVID-19. He has completed all treatment for his bacteremia. He has had a bone marrow biopsy since last hospital stay. He had a PICC line placed in his right upper extremity this admission Patient seen and examined at bedside. No additional itching. No chest pain, No shortness of breath. No nausea and vomiting. General: nontoxic, no distress, appears at stated age Derm: warm, dry, erythema over anterior chest area no lesions Head: atraumatic, normocephalic, symmetric Eyes: EOMI, no lid lag, anicteric sclera Mouth: no lip lesion, mucus membranes moist, no lesions. Cardiovascular: S1S2 reg, no murmur, positive posterior tibial pulse bilateral, Lungs: CTA bilateral, no rhonchi, no rales , no accessory muscle use Abdominal: soft, nontender to palpation, no guarding, no appreciable organomegaly Ext: no gross muscle atrophy, no edema, no contractures Neuro: CN II-XI grossly intact, no focal neuro deficits Psych: Alert, oriented, appropriate affect Assessment/Plan: AML Thrombocytopenia, stable Anemia - Consolidation Cycyle 1 completed - chemo managed by oncology - follow CBC, CMP Obesity with BMI 40.5 - encourage healthy choices and protein Hx of neutropenia Hx of recent COVID March 2022 Hx of recent pancytopenia Doing well. Anticipate discharge home today. Home with PICC line will flush with heparin. Objective - Vital Signs Vital signs: Vital Signs Temp 98.1 F 04/29/22 03:58 Pulse 66 04/29/22 08:00 Resp 18 04/29/22 08:00 BP 143/73 04/29/22 08:00 Pulse Ox 100 04/29/22 08:00 FiO2 Intake & Output 04/28/22 04/29/22 04/29/22 18:59 06:59 18:59 Weight 120.7 kg Other: Voiding Method Toilet Toilet Toilet # Voids 3 1 # Bowel Movements 1 0 - Labs CBC & Chem 7: 04/28/22 05:10 04/28/22 05:10
[2022-04-29 13:21] LABS: Basophils # (A) 0.01 X 10*3/uL (0.00-0.10); Basophils % (A) 0.1 %; Eosinophils # (A) 0 X 10*3/uL (0.04-0.35); Eosinophils % (A) 0 %; HCT 38.1 % (39.6-50.0); HGB 12.5 g/dL (13.0-17.0); Immature Grans, Automated 0.4 %; Lymphocytes # (A) 0.42 X 10*3/uL (0.90-5.00); Lymphocytes % (A) 5.4 %; MCH 28.9 pg (27.0-32.0); MCHC 32.8 g/dL (32.0-37.0); MCV 88.2 fL (80.0-97.0); Mean Platelet Volume 11.3 fL (9.5-12.2); Monocytes # (A) 0.05 X 10*3/uL (0.20-1.00); Monocytes % (A) 0.6 %; NRBC Per 100 WBC 0 /100 WBCS (0.0-0.0); Neutrophils # (A) 7.34 X 10*3/uL (1.80-7.70); Neutrophils % (A) 93.5 %; Platelet Count 116 X 10*3/uL (140-440); RBC 4.32 X 10*6/uL (4.40-5.60); RDW 15.5 % (11.5-14.5); WBC 7.85 X 10*3/uL (4.50-10.00)
[2022-04-29 13:43] LABS: INR 0.94 (0.90-1.11); Prothrombin Time 10.4 sec (9.9-11.9)
[2022-04-29 14:42] LABS: African American GFR (CKD) 150.7 (60.0-200.0); Albumin 4.5 g/dL (3.8-4.9); Albumin/Globulin Ratio 2.06 (1.60-3.17); Anion Gap 13.6 mmol/L (10.00-18.00); BUN/Creat Ratio 19.25 Ratio (12.00-20.00); Blood Urea Nitrogen 13.3 mg/dL (9.0-27.0); Calcium 9.4 mg/dL (8.7-10.3); Globulin 2.2 g/dL (1.6-3.3); Magnesium 2.1 mg/dL (1.5-2.4); Phosphorus 4.5 mg/dL (2.4-5.1); Total Bilirubin 1.3 mg/dL (0.30-1.20); Total Protein 6.6 g/dL (6.2-8.2); Uric Acid 4.3 mg/dL (3.7-8.7)
== END 2022-04-29 12:15 | disposition home or self-care (01) | DRG 838 ==
LOC: 5NMEDONC 08:42
PROVIDERS: ADMIT Internal Medicine Hematology & Oncology; ATTEND Internal Medicine Hematology & Oncology
PROC: 02HV33Z Insertion of Infusion Device into Superior Vena Cava, Percutaneous Approach (ICD-10-PCS; principal; 2022-04-24 17:30)
DX: Z51.11 Encounter for antineoplastic chemotherapy (principal); C92.50 Acute myelomonocytic leukemia, not having achieved remission; Z68.41 Body mass index [BMI] 40.0-44.9, adult; E66.9 Obesity, unspecified; D69.6 Thrombocytopenia, unspecified; D64.9 Anemia, unspecified; L29.9 Pruritus, unspecified; Z79.899 Other long term (current) drug therapy; Z86.16 Personal history of COVID-19; Z87.01 Personal history of pneumonia (recurrent); Z86.19 Personal history of other infectious and parasitic diseases; Z86.2 Personal history of diseases of the blood and blood-forming organs and certain disorders involving the immune mechanism; Z80.3 Family history of malignant neoplasm of breast
CPT/HCPCS: 36573; 80053; 82306; 82652; 83615; 83735; 84100; 84550; 85025; 85027; 85610

== ENCOUNTER 2022-05-07 09:11 | Inpatient (IN) | payer OTHER ==
--- NOTE | 2022-05-07 09:38 | ED ---
General Adult HPI - General Chief complaint: Recheck/Abnormal Lab/Rx Stated complaint: Refered by Specialist Time Seen by Provider: 05/07/22 09:16 Source: patient, family, RN notes reviewed Mode of arrival: ambulatory Limitations: no limitations - History of Present Illness Initial comments: This a 27-year-old male presents emergency Department with chief complaint of thrombocytopenia. Patient states he has AML did receive chemotherapy a week ago and states that he's developed large blood blisters in his mouth states they are moderately painful. He states his platelets were 16 on Sunday in which he discussed with his oncologist today, and return for platelet transfusion. Denies any rectal bleeding denies any hematemesis. Patient denies any fevers chills no night sweats no cough or cold-like symptoms. - Related Data Previous Rx's Medication Instructions Recorded ALPRAZolam [Xanax] 0.5 mg PO TID PRN tab 03/27/22 Cholecalciferol [Vitamin D3 (125 250 mcg PO DAILY #30 tab 03/27/22 Mcg = 5000 Iu)] Acetaminophen Tab [Tylenol] 650 mg PO Q6HR PRN tab 04/29/22 Acyclovir [Zovirax] 400 mg PO BID #60 tablet 04/29/22 Ciprofloxacin HCl [Cipro] 500 mg PO DAILY 30 Days #30 tab 04/29/22 Nystatin 100,000 Unit/ml Susp 5 ml PO QID #400 ml 04/29/22 [Mycostatin Oral Susp] Sennosides-Docusate Sodium 1 each PO HS tab 04/29/22 [Senokot-S] bisacodyL [Dulcolax] 5 mg PO DAILY PRN tab 04/29/22 hydrOXYzine HCL [Atarax] 25 mg PO QID PRN #45 tab 04/29/22 Allergies Allergy/AdvReac Type Severity Reaction Status Date / Time No Known Allergies Allergy Verified 05/07/22 09:16 Review of Systems ROS Statement: Those systems with pertinent positive or pertinent negative responses have been documented in the HPI. ROS Other: All systems not noted in ROS Statement are negative. Past Medical History Past Medical History: Cancer Additional Past Medical History / Comment(s): AML, leukocytosis/thrombocytopenia, pancytopenia, coagulopathy/neuropenic fever, covid/pneumonia, anemia with blood transfusions. History of Any Multi-Drug Resistant Organisms: None Reported Past Surgical History: Adenoidectomy, Tonsillectomy Additional Past Surgical History / Comment(s): BMAs, picc line placed Past Anesthesia/Blood Transfusion Reactions: No Reported Reaction Past Psychological History: Anxiety Smoking Status: Never smoker - Past Family History Mother Family Medical History: Cancer Additional Family Medical History / Comment(s): breast CA Father Family Medical History: No Reported History General Exam Limitations: no limitations General appearance: alert, in no apparent distress Head exam: Present: atraumatic, normocephalic, normal inspection Eye exam: Present: normal appearance, PERRL, EOMI. Absent: scleral icterus, conjunctival injection, periorbital swelling ENT exam: Present: mucous membranes moist. Absent: normal exam, normal oropharynx (Large ecchymotic areas buccal mucosa) Neck exam: Present: normal inspection, full ROM. Absent: tenderness, meningismus, lymphadenopathy Respiratory exam: Present: normal lung sounds bilaterally. Absent: respiratory distress, wheezes, rales, rhonchi, stridor Cardiovascular Exam: Present: regular rate, normal rhythm, normal heart sounds. Absent: systolic murmur, diastolic murmur, rubs, gallop, clicks GI/Abdominal exam: Present: soft, normal bowel sounds. Absent: distended, tenderness, guarding, rebound, rigid Neurological exam: Present: alert, oriented X3 Skin exam: Present: warm, dry, intact, normal color. Absent: rash Course Vital Signs 05/07/22 09:12 Temperature 97.9 F Pulse Rate 78 Respiratory 18 Rate Blood Pressure 139/88 O2 Sat by Pulse 100 Oximetry Medical Decision Making - Medical Decision Making 27-year-old presented for thrombocytopenia patient does have some bleeding in oral mucosa, did have epistaxis. Patient parents will not be ready until tonight. Patiently admitted for observation. - Lab Data Lab Results 05/07/22 Range/Units 09:31 PT 10.1 (9.0-12.0) sec INR 0.9 (<1.2) APTT 24.8 (22.0-30.0) sec Disposition Clinical Impression: Thrombocytopenia, AML (acute myelogenous leukemia) Disposition: ADMITTED IP TO THIS [facility] Condition: Fair Referrals: Usama Camejo MD [Primary Care Provider] - 1-2 days Time of Disposition: 10:07
[2022-05-07 09:53] LABS: INR 0.9 (<1.2); Partial Thromboplastin Time 24.8 sec (22.0-30.0); Prothrombin Time 10.1 sec (9.0-12.0)
[2022-05-07 09:59] LABS: HCT 31.5 % (39.0-53.0); HGB 11.3 gm/dL (13.0-17.5); Hyperchromasia Slight; MCH 29.9 pg (25.0-35.0); MCHC 35.7 g/dL (31.0-37.0); Mean Platelet Volume 7.1; Poikilocytosis Slight; RBC 3.76 m/uL (4.30-5.90); RDW 15.4 % (11.5-15.5)
[2022-05-07 10:09] LABS: WBC 1.8 k/uL (3.8-10.6)
[2022-05-07] MEDS ORDERED: NALOXONE 0.4 MG/ML 1 ML VIAL IV PRN (10:09)
[2022-05-07] MEDS ORDERED: ACETAMINOPHEN TAB 325 MG TAB PO PRN (10:09)
[2022-05-07 10:10] LABS: African American GFR (CKD) >90 (>60 ml/min/1.73 sqM); Anion Gap 7 mmol/L; Blood Urea Nitrogen 12 mg/dL (9-20); Calcium 8.9 mg/dL (8.4-10.2); Carbon Dioxide 25 mmol/L (22-30); Chloride 106 mmol/L (98-107); Glucose 85 mg/dL (74-99); Non-African American GFR(CKD) >90 (>60 ml/min/1.73 sqM); Sodium 138 mmol/L (137-145)
[2022-05-07 10:12] LABS: MCV 83.7 fL (80.0-100.0)
[2022-05-07 10:26] LABS: Neutrophils % (M) 13 %
[2022-05-07 10:30] LABS: Eosinophils # (M) 0.02 k/uL (0-0.7); Lymphocytes # (M) 1.49 k/uL (1.0-4.8); Monocytes # (M) 0.05 k/uL (0-1.0); Neutrophils # (M) 0.23 k/uL (1.3-7.7); Nucleated Red Blood Cells 0 /100 WBC (0-0); Total Cells Counted 100
[2022-05-07 10:31] LABS: Platelet Count 3 k/uL (150-450)
[2022-05-07 10:32] LABS: Tear Drop Cells Present
[2022-05-07] MEDS ORDERED: ALPRAZolam 0.5 MG TAB PO PRN (11:25)
[2022-05-07] MEDS ORDERED: hydrOXYzine HCL 25 MG TAB PO PRN (11:25)
--- NOTE | 2022-05-07 11:26 | P.HPIM ---
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 He presented to the emergency department secondary to findings of large blood blisters throughout his mouth. Patient states that he was told on Sunday that his platelet count was getting low and to watch for signs of severe thrombocytopenia. Patient reports last night he began to notice small blood blisters forming in his mouth and this morn ing had large blood blisters throughout entire mouth accompanied by a nosebleed so he needed to come to the emergency department for evaluation. In the emergency department, patient underwent full evaluation. He was found to have neutropenia with neutrophils of 0.23, pancytopenia with WBC count of 1.8, hemoglobin 11.3, and platelet count of 3. Secondary to this severe thrombocytopenia, patient received 1 unit of platelets in the emergency department and was admitted under our services of consultation to oncology. Patient seen and fully evaluated at the bedside. Reports other than the blood blisters in his mouth, he is feeling "fine". Patient reports being a little tired and having difficulty eating and drinking secondary to the blood blisters throughout his mouth. He denies having any other complaints including fevers, chills, diaphoresis, headache, lightheadedness, dizziness, sore throat or dysphasia, chest pain, palpitations, shortness of breath, cough or congestion, abdominal pain, nausea, vomiting, or experiencing any changes in her difficulties with urinary or bowel function, denies petechia or any other noted skin rashes, and denies any numbness/tingling/weakness/swelling in his extremities. Review of systems: Pertinent positives and negatives as discussed in HPI, a complete review of systems was performed and all other systems are negative. Physical exam: Vital signs reviewed and stable. General: Nontoxic, no distress and appears stated age. Derm: Skin warm and dry, pallor. Head: Atraumatic, normocephalic and symmetric. Eyes: EOMs intact, no lid lag, and anicteric sclera Mouth: no lip lesions, mucus membranes moist. Blood blisters/large ecchymotic areas to buccal mucosa Cardiovascular: regular rate and rhythm with normal S1S2, no murmur, positive posterior tibial pulses bilaterally, and cap refill < 2 seconds. Lungs: Respirations even, regular, and unlabored on room air. Lungs CTA bilaterally, no rhonchi, no rales, no wheezing, and no accessory muscle usage. Abdominal: soft, nontender to palpation, no guarding, no appreciable organomegal y Ext: ROM intact. No gross muscle atrophy, no edema, no contractures Neuro: Speech clear, face symmetrical and CN II-XII grossly intact with no noted focal neuro deficits Psych: Alert and oriented to person, place, time, and situation. Appropriate and pleasant affect. Assessment and Plan of Care: Severe thrombocytopenia Pancytopenia Neutropenia AML -Pancytopenia with WBC count 1.8, hemoglobin 11.3, and platelet count of 3. -Neutropenia with neutrophils 0.23. -Patient received transfusion of platelets in the ED. -Hematology/oncology consulted. -Neutropenic precautions The patient is admitted with an anticipated greater than 2 midnight stay for evaluation of severe thrombocytopenia. CODE STATUS: Full code DVT prophylaxis: SCDs Discussed with: Patient and RN Anticipated discharge date: Clinical course to determine Anticipated discharge place: Home A total of 45 minutes was spent on the care of this complex patient more than 50% of the time was spent in counseling and care coordination. I reviewed the documentation as provided by the MARY above, who is the original author of this note. I agree with the documented assessment and plan, with the following changes: none Past Medical History Past Medical History: Cancer Additional Past Medical History / Comment(s): AML, leukocytosis/thrombocytopenia, pancytopenia, coagulopathy/neuropenic fever, covid/pneumonia, anemia with blood transfusions. History of Any Multi-Drug Resistant Organisms: None Reported Past Surgical History: Adenoidectomy, Tonsillectomy Additional Past Surgical History / Comment(s): BMAs, picc line placed Past Anesthesia/Blood Transfusion Reactions: No Reported Reaction Past Psychological History: Anxiety Smoking Status: Never smoker - Past Family History Mother Family Medical History: Cancer Additional Family Medical History / Comment(s): breast CA Father Family Medical History: No Reported History Medications and Allergies Home Medications Medication Instructions Recorded Confirmed Type ALPRAZolam [Xanax] 0.5 mg PO TID PRN tab 03/27/22 05/07/22 Rx Cholecalciferol [Vitamin D3 (125 250 mcg PO DAILY #30 tab 03/27/22 05/07/22 Rx Mcg = 5000 Iu)] Acetaminophen Tab [Tylenol] 650 mg PO Q6HR PRN tab 04/29/22 05/07/22 Rx Acyclovir [Zovirax] 400 mg PO BID #60 tablet 04/29/22 05/07/22 Rx Ciprofloxacin HCl [Cipro] 500 mg PO DAILY 30 Days #30 tab 04/29/22 05/07/22 Rx Nystatin 100,000 Unit/ml Susp 5 ml PO QID #400 ml 04/29/22 05/07/22 Rx [Mycostatin Oral Susp] bisacodyL [Dulcolax] 5 mg PO DAILY PRN tab 04/29/22 05/07/22 Rx hydrOXYzine HCL [Atarax] 25 mg PO QID PRN #45 tab 04/29/22 05/07/22 Rx Sennosides-Docusate Sodium 1 tab PO HS 05/07/22 05/07/22 History [Senokot-S] Allergies Allergy/AdvReac Type Severity Reaction Status Date / Time No Known Allergies Allergy Verified 05/07/22 14:09 Physical Exam Osteopathic Statement: *. No significant issues noted on an osteopathic structural exam other than those noted in the History and Physical/Consult. Vitals: Vital Signs Temp Pulse Resp BP Pulse Ox 05/07/22 09:12 97.9 F 78 18 139/88 100 Intake and Output 05/06/22 05/07/22 05/07/22 22:59 06:59 14:59 Other: Weight 117.934 kg Results CBC & Chem 7: 05/07/22 09:31 05/07/22 09:31 Labs: Abnormal Lab Results - Last 24 Hours (Table) 05/07/22 Range/Units 09:31 WBC 1.8 L (3.8-10.6) k/uL RBC 3.76 L (4.30-5.90) m/uL Hgb 11.3 L (13.0-17.5) gm/dL Hct 31.5 L (39.0-53.0) % Plt Count 3 L* D (150-450) k/uL Neutrophils # (Manual) 0.23 L* (1.3-7.7) k/uL
[2022-05-07] MEDS ORDERED: HYDROcodone/APAP 5-325MG 1 EACH TAB PO PRN (11:32)
[2022-05-07] MEDS ORDERED: Phenol 1.4% Sore Throat Spray Bottle MUCOUS MEM PRN (11:32)
[2022-05-07] MEDS: MAG HYDROX/AL HYDROX/SIMETH 30 ML, LIDOCAINE VISCOUS 30 ML, diphenhydrAMINE ELIXIR 75 M... PO SCH ×12 (11:52→19:46)
[2022-05-07] MEDS ORDERED: bisacodyL 5 MG TABLET.DR PO PRN (12:08)
[2022-05-07] MEDS: NYSTATIN 100,000 UNIT/ML SUSP 500,000 UNIT/5 ML CUP PO SCH ×3 (13:25→22:49)
[2022-05-07] MEDS: ACYCLOVIR 200 MG CAP PO SCH (19:46)
[2022-05-07 20:31] LABS: HCT 30.7 % (39.0-53.0); HGB 9.9 gm/dL (13.0-17.5); Hypochromasia Slight; MCH 28.7 pg (25.0-35.0); MCHC 32.4 g/dL (31.0-37.0); MCV 88.6 fL (80.0-100.0); Mean Platelet Volume 7.4; Poikilocytosis Slight; RBC 3.46 m/uL (4.30-5.90); RDW 14.9 % (11.5-15.5); WBC 2.8 k/uL (3.8-10.6)
[2022-05-07 20:52] LABS: Platelet Count 15 k/uL (150-450)
[2022-05-07] MEDS ORDERED: SENNOSIDES-DOCUSATE SODIUM 1 EACH TAB PO SCH (21:00)
[2022-05-07 23:50] VITALS: RESP 16
[2022-05-08 07:54] LABS: ALT 48 U/L (4-49); AST 28 U/L (17-59); African American GFR (CKD) >90 (>60 ml/min/1.73 sqM); Alkaline Phosphatase 59 U/L (38-126); Anion Gap 5 mmol/L; Blood Urea Nitrogen 9 mg/dL (9-20); Calcium 8.9 mg/dL (8.4-10.2); Carbon Dioxide 27 mmol/L (22-30); Chloride 104 mmol/L (98-107); Glucose 82 mg/dL (74-99); Magnesium 1.9 mg/dL (1.6-2.3); Non-African American GFR(CKD) >90 (>60 ml/min/1.73 sqM); Potassium 4.1 mmol/L (3.5-5.1); Sodium 136 mmol/L (137-145); Total Bilirubin 1.2 mg/dL (0.2-1.3); Total Protein 6.5 g/dL (6.3-8.2)
[2022-05-08 08:06] LABS: HCT 29.5 % (39.0-53.0); HGB 10.2 gm/dL (13.0-17.5); MCH 29.6 pg (25.0-35.0); MCHC 34.7 g/dL (31.0-37.0); MCV 85.4 fL (80.0-100.0); Mean Platelet Volume 8.1; Poikilocytosis Slight; RBC 3.45 m/uL (4.30-5.90); RDW 15.2 % (11.5-15.5)
[2022-05-08 08:08] LABS: Platelet Count 13 k/uL (150-450)
[2022-05-08] MEDS: MAG HYDROX/AL HYDROX/SIMETH 30 ML, LIDOCAINE VISCOUS 30 ML, diphenhydrAMINE ELIXIR 75 M... PO SCH ×4 (08:58)
[2022-05-08] MEDS: NYSTATIN 100,000 UNIT/ML SUSP 500,000 UNIT/5 ML CUP PO SCH (08:58)
[2022-05-08] MEDS: ACYCLOVIR 200 MG CAP PO SCH (08:59)
[2022-05-08] MEDS ORDERED: CIPROFLOXACIN HCL 500 MG TAB PO SCH (09:00)
[2022-05-08] MEDS ORDERED: CHOLECALCIFEROL 125 MCG (5000 IU) TABLET PO SCH (09:00)
[2022-05-08 10:49] VITALS: BP 132/89; PULSE 84; TEMP 98.8
--- NOTE | 2022-05-08 11:02 | P.DS ---
Providers Date of admission: 05/07/22 10:52 Expected date of discharge: 05/08/22 Attending physician: Akua Velarde MD Consults: 05/07/22 10:18 Consult Physician Urgent Consulting Provider: Ganesh Keith Consult Reason/Comments: Thrombocytopenia, AML Do you want consulting provider notified?: Yes Primary care physician: Usama De Souza [facility] Course: Discharge Diagnosis: Severe from the cytopenia resulting in mucous membrane bleeding and blood blisters in mouth Chemotherapy induced pancytopenia Acute myelogenous leukemia Obesity with BMI 36.3 Hospital Course: Patient is 27-year-old male withML recently diagnosed in February and currently undergoing chemo. In the emergency department, patient he was found to have neutropenia with neutrophils of 0.23, pancytopenia with WBC count of 1.8, hemoglobin 11.3, and platelet count of 3. Secondary to this severe thrombocytopenia,he received 1 unit of platelets in the emergency department and was admitted under our services of consultation to oncology. He was monitored overnight and his platelets stayed stable. His blood blisters in his mouth was improved. He was detemrined stable for discharge. He was seen by oncology and has an outpatient appointment on Sunday with them. He is given a prescription for Magic mouthwash and QT developed oral ulcerations. There are given instructions to only start this if he develops mouth pain or oral ulcerations. Patient improved Anticipated and Was Subsequently Able to Be Discharged. Patient seen and examined at bedside. Doing well. Ulcers in his mouth and subsided significantly since yesterday. No additional bruising or bleeding. Has been eating and drinking well. Vital signs reviewed and stable. General: nontoxic, no distress, appears at stated age Derm: warm, dry Head: atraumatic, normocephalic, symmetric Eyes: EOMI, no lid lag, anicteric sclera Mouth: no lip lesion, mucus membranes moist, small pinpoint petechiae on the left side of the tongue and inside of the left buccal mucosa. Cardiovascular: S1S2 reg, no murmur, positive posterior tibial pulse bilateral, Lungs: CTA bilateral, no rhonchi, no rales , no accessory muscle use Abdominal: soft, nontender to palpation, no guarding, no appreciable organomegaly Ext: no gross muscle atrophy, no edema, no contractures Neuro: CN II-XI grossly intact, no focal neuro deficits Psych: Alert, oriented, appropriate affect A total of 25 minutes of time were spent preparing this complex discharge summary. Patient was discharged on 05/08/22. Patient Condition at Discharge: Fair Plan - Discharge Summary Discharge Rx Participant: Yes New Discharge Prescriptions: Continue ALPRAZolam [Xanax] 0.5 mg PO TID PRN tab PRN Reason: Anxiety hydrOXYzine HCL [Atarax] 25 mg PO QID PRN #45 tab PRN Reason: Itching bisacodyL [Dulcolax] 5 mg PO DAILY PRN tab PRN Reason: Constipation Cholecalciferol [Vitamin D3 (125 Mcg = 5000 Iu)] 250 mcg PO DAILY #30 tab Ciprofloxacin HCl [Cipro] 500 mg PO DAILY 30 Days #30 tab Acetaminophen Tab [Tylenol] 650 mg PO Q6HR PRN tab PRN Reason: Fever And/ Or Pain Acyclovir [Zovirax] 400 mg PO BID #60 tablet Sennosides-Docusate Sodium [Senokot-S] 1 tab PO HS Discontinued Nystatin 100,000 Unit/ml Susp [Mycostatin Oral Susp] 5 ml PO QID #400 ml Discharge Medication List ALPRAZolam [Xanax] 0.5 mg PO TID PRN tab 03/27/22 [Rx] Cholecalciferol [Vitamin D3 (125 Mcg = 5000 Iu)] 250 mcg PO DAILY #30 tab 03/27/22 [Rx] Acetaminophen Tab [Tylenol] 650 mg PO Q6HR PRN tab 04/29/22 [Rx] Acyclovir [Zovirax] 400 mg PO BID #60 tablet 04/29/22 [Rx] Ciprofloxacin HCl [Cipro] 500 mg PO DAILY 30 Days #30 tab 04/29/22 [Rx] bisacodyL [Dulcolax] 5 mg PO DAILY PRN tab 04/29/22 [Rx] hydrOXYzine HCL [Atarax] 25 mg PO QID PRN #45 tab 04/29/22 [Rx] Sennosides-Docusate Sodium [Senokot-S] 1 tab PO HS 05/07/22 [History] Follow up Appointment(s)/Referral(s): Usama Camejo MD [Primary Care Provider] - As Needed Carrington Almanza MD [Family Provider] - 1 Week (on Wednesday as scheduled for labs ) Discharge Disposition: HOME SELF-CARE
--- NOTE | 2022-05-08 14:19 | P.CONS ---
History of Present Illness - Reason for Consult Consult date: 05/08/22 thronbocytopenia, AML Requesting physician: Damien Sexton - Chief Complaint epistaxis, chemo induced thrombocytopenia - History of Present Illness Ben is a very pleasant young man who was seen at the end of February when he presented with constitutional symptoms, leukocytosis and thrombocytopenia, peripheral blasts. Bone marrow 02/25/22 revealed AML 80-90% blasts, trisomy 21, NGS negative for any other genomic alterations. He had induction chemotherapy 7+3 regimen. He had Covid infection during that hospitalization. Repeat bone marrow 03/30/22 revealed a complete response. He did have his first consolidation chemotherapy 04/19 and has been being followed up outpatient with CBCs and transfusions when necessary. Patient was needing a platelet transfusion for platelet count of 3 or 4000, unfortunately, there were no irradiated platelets available. Patient was admitted observation until platelets can be obtained. Patient has been transfused. His platelets are 13,000 today. Prior to transfusion patient did have epistaxis as well as some oral irritation. He has not had a nosebleed since, denies gum bleeding, hematuria, hematochezia, melena. No other complaints, very anxious to go home. Review of Systems 10 point ROS is neg except as stated in HPI Past Medical History Past Medical History: Cancer Additional Past Medical History / Comment(s): AML, leukocytos is/thrombocytopenia, pancytopenia, coagulopathy/neuropenic fever, covid/pneumonia, anemia with blood transfusions. History of Any Multi-Drug Resistant Organisms: None Reported Past Surgical History: Adenoidectomy, Tonsillectomy Additional Past Surgical History / Comment(s): BMAs, picc line placed Past Anesthesia/Blood Transfusion Reactions: No Reported Reaction Past Psychological History: Anxiety Smoking Status: Never smoker - Past Family History Mother Family Medical History: Cancer Additional Family Medical History / Comment(s): breast CA Father Family Medical History: No Reported History Medications and Allergies Home Medications Medication Instructions Recorded Confirmed Type ALPRAZolam [Xanax] 0.5 mg PO TID PRN tab 03/27/22 05/07/22 Rx Cholecalciferol [Vitamin D3 (125 250 mcg PO DAILY #30 tab 03/27/22 05/07/22 Rx Mcg = 5000 Iu)] Acetaminophen Tab [Tylenol] 650 mg PO Q6HR PRN tab 04/29/22 05/07/22 Rx Acyclovir [Zovirax] 400 mg PO BID #60 tablet 04/29/22 05/07/22 Rx Ciprofloxacin HCl [Cipro] 500 mg PO DAILY 30 Days #30 tab 04/29/22 05/07/22 Rx bisacodyL [Dulcolax] 5 mg PO DAILY PRN tab 04/29/22 05/07/22 Rx hydrOXYzine HCL [Atarax] 25 mg PO QID PRN #45 tab 04/29/22 05/07/22 Rx Sennosides-Docusate Sodium 1 tab PO HS 05/07/22 05/07/22 History [Senokot-S] Allergies Allergy/AdvReac Type Severity Reaction Status Date / Time No Known Allergies Allergy Verified 05/07/22 14:09 Physical Exam Vitals: Vital Signs Temp Pulse Pulse Resp BP BP Pulse Ox 05/08/22 03:34 98 F 69 16 145/78 99 05/07/22 23:48 98 F 73 16 146/91 98 05/07/22 20:00 98 F 77 18 153/91 99 05/07/22 16:31 98.7 F 73 17 141/84 98 05/07/22 14:48 78 18 141/72 99 05/07/22 14:18 98.3 F 90 19 137/79 98 05/07/22 14:08 98.6 F 74 16 135/74 99 05/07/22 11:35 97.8 F 72 16 133/91 100 Intake and Output 05/07/22 05/08/22 05/08/22 22:59 06:59 14:59 Intake Total 588 480 Balance 588 480 Intake: Oral 240 480 Blood Product 348 Platelet Pheresis Pas 348 Psoralen Unit [id number] Other: Voiding Method Toilet Toilet # Voids 1 2 - Constitutional General appearance: cooperative, no acute distress, obese - EENT lt buccal ulcer, no wet purpura Eyes: anicteric sclerae, EOMI ENT: hearing grossly normal - Neck Neck: no lymphadenopathy - Respiratory Respiratory: bilateral: CTA - Cardiovascular Rhythm: regular Heart sounds: normal: S1, S2 Abnormal Heart Sounds: no systolic murmur, no diastolic murmur, no rub, no S3 Gallop, no S4 Gallop, no click, no other leg Peripheral Edema: bilateral: None - Gastrointestinal General gastrointestinal: no absent bowel sounds, no decreased bowel sounds, no distended, no hepatomegaly, no hyperactive bowel sounds, normal bowel sounds, no organomegaly, no rigid, no scaphoid, soft, no splenomegaly, no tenderness, no umbilical hernia, no ventral hernia - Integumentary Integumentary: normal turgor, pale - Neurologic Neurologic: CNII-XII intact - Musculoskeletal Musculoskeletal: strength equal bilaterally - Psychiatric Psychiatric: A&O x's 3, appropriate affect, intact judgment & insight Results CBC & Chem 7: 05/08/22 06:46 05/08/22 06:46 Labs: Abnormal Lab Results - Last 24 Hours (Table) 05/07/22 05/07/22 05/08/22 Range/Units 09:31 20:21 06:46 WBC 1.8 L 2.8 L (3.8-10.6) k/uL RBC 3.76 L 3.46 L (4.30-5.90) m/uL Hgb 11.3 L 9.9 L (13.0-17.5) gm/dL Hct 31.5 L 30.7 L (39.0-53.0) % Plt Count 3 L* D 15 L* D (150-450) k/uL Neutrophils # (Manual) 0.23 L* (1.3-7.7) k/uL Sodium 136 L (137-145) mmol/L 05/08/22 Range/Units 06:46 WBC 2.0 L (3.8-10.6) k/uL RBC 3.45 L (4.30-5.90) m/uL Hgb 10.2 L (13.0-17.5) gm/dL Hct 29.5 L (39.0-53.0) % Plt Count 13 L* (150-450) k/uL Neutrophils # (Manual) (1.3-7.7) k/uL Sodium (137-145) mmol/L Assessment and Plan (1) AML (acute myelogenous leukemia) Status: Acute Priority: High Code(s): C92.00 - ACUTE MYELOBLASTIC LEUKEMIA, NOT HAVING ACHIEVED REMISSION SNOMED Code(s): 13145097 (2) Pancytopenia due to antineoplastic chemotherapy Status: Acute Priority: High Code(s): D61.810 - ANTINEOPLASTIC CHEMOTHERAPY INDUCED PANCYTOPENIA; T45.1X5A - ADVERSE EFFECT OF ANTINEOPLASTIC AND IMMUNOSUP DRUGS, INIT SNOMED Code(s): 853339351432548 Plan: Patient's WBC is 2, hemoglobin 10.2, platelets 13,000 today. Review the case with Internal Medicine. Patient is okay for discharge from a He matology/Oncology standpoint. He has CBC in the office 3 times a week and transfusions as needed. Bleeding and infection precautions Internal Medicine providing prescription for kools solution for mucositis Doctor attests: I performed a history and physical examination of this patient, developed impression and plan of care. Discussed with dictator. I agree with dictators note, documented as a scribe.
== END 2022-05-08 11:39 | disposition home or self-care (01) | DRG 809 ==
LOC: EC 09:11 → 3SCARD 10:52
PROVIDERS: ADMIT Internal Medicine; ATTEND Internal Medicine
PROC: 30233R1 Transfusion of Nonautologous Platelets into Peripheral Vein, Percutaneous Approach (ICD-10-PCS; principal; 2022-05-07)
PROC: 6A550Z2 Pheresis of Platelets, Single (ICD-10-PCS; 2022-05-07)
DX: D61.810 Antineoplastic chemotherapy induced pancytopenia (principal); C92.00 Acute myeloblastic leukemia, not having achieved remission; D69.59 Other secondary thrombocytopenia; E66.9 Obesity, unspecified; T45.1X5A Adverse effect of antineoplastic and immunosuppressive drugs, initial encounter; F41.9 Anxiety disorder, unspecified; K12.1 Other forms of stomatitis; Q90.9 Down syndrome, unspecified; R04.0 Epistaxis; S00.522A Blister (nonthermal) of oral cavity, initial encounter; Z68.36 Body mass index [BMI] 36.0-36.9, adult; Z80.3 Family history of malignant neoplasm of breast; Z86.16 Personal history of COVID-19; Z87.01 Personal history of pneumonia (recurrent); X58.XXXA Exposure to other specified factors, initial encounter
CPT/HCPCS: 36415; 80048; 80053; 83735; 85025; 85027; 85610; 85730; 86850; 86900; 86901; 99284

== ENCOUNTER 2022-05-29 08:45 | Inpatient (IN) | payer OTHER ==
[2022-05-29] MEDS: SODIUM CHLORIDE 0.9% 1,000 ML IV SCH ×3 (09:47→21:25)
[2022-05-29] MEDS ORDERED: ONDANSETRON 4 MG/2 ML VIAL IVP PRN (10:00)
[2022-05-29] MEDS ORDERED: SALT AND SODA MOUTHWASH 1,000 ML PO PRN (10:00)
[2022-05-29 10:12] LABS: Anisocytosis Moderate; Basophils % (A) 1 %; Eosinophils % (A) 0 %; HCT 34.5 % (39.0-53.0); HGB 11.4 gm/dL (13.0-17.5); Hypochromasia Moderate; Lymphocytes # (A) 1.3 k/uL (1.0-4.8); Lymphocytes % (A) 31 %; MCH 30.6 pg (25.0-35.0); MCHC 33.1 g/dL (31.0-37.0); Macrocytosis Slight; Mean Platelet Volume 8.2; Monocytes # (A) 0.5 k/uL (0-1.0); Monocytes % (A) 11 %; Neutrophils # (A) 2.2 k/uL (1.3-7.7); Neutrophils % (A) 53 %; Poikilocytosis Moderate; RBC 3.75 m/uL (4.30-5.90); RDW 21.9 % (11.5-15.5); WBC 4.2 k/uL (3.8-10.6)
[2022-05-29 10:14] LABS: MCV 92.2 fL (80.0-100.0); Platelet Count 248 k/uL (150-450)
[2022-05-29 10:17] LABS: ALT 38 U/L (4-49); AST 28 U/L (17-59); African American GFR (CKD) >90 (>60 ml/min/1.73 sqM); Albumin 4.4 g/dL (3.5-5.0); Albumin/Globulin Ratio 1.8; Alkaline Phosphatase 57 U/L (38-126); Anion Gap 13 mmol/L; Blood Urea Nitrogen 13 mg/dL (9-20); Calcium 9.4 mg/dL (8.4-10.2); Carbon Dioxide 22 mmol/L (22-30); Chloride 105 mmol/L (98-107); Globulin 2.5 g/dL; Glucose 86 mg/dL (74-99); Non-African American GFR(CKD) >90 (>60 ml/min/1.73 sqM); Potassium 3.8 mmol/L (3.5-5.1); Sodium 140 mmol/L (137-145); Total Bilirubin 0.5 mg/dL (0.2-1.3); Total Protein 6.9 g/dL (6.3-8.2); Uric Acid 7.5 mg/dL (3.5-8.5)
[2022-05-29] MEDS: FAMOTIDINE 20 MG/2 ML VIAL IV SCH (11:04)
[2022-05-29] MEDS: ONDANSETRON 16 MG in SODIUM CHLORIDE 0.9% 50 ML IVPB SCH (11:04)
[2022-05-29] MEDS: DEXAMETHASONE SOD PHOSPHATE 10 MG/ML 1 ML VIAL IV SCH (11:04)
[2022-05-29] MEDS: CYTARABINE IV SCH ×2 (11:54→23:46)
[2022-05-29] MEDS: SODIUM CHLORIDE 0.9% IV SCH ×2 (11:54→23:46)
[2022-05-29] MEDS: prednisoLONE ACETATE 1% OPHTH DROPS 5 ML BTL BOTH EYES SCH ×3 (11:57→21:24)
[2022-05-29] MEDS: SALT AND SODA MOUTHWASH 1,000 ML PO SCH ×2 (11:57→17:21)
--- NOTE | 2022-05-29 16:27 | P.HPIM ---
History of Present Illness H&P Date: 05/29/22 Chief Complaint: AML, admit for cycle 2 of consolidation Akira is a very pleasant 27-year-old male who we initially saw 02/25/22 in regards to leukocytosis, thrombocytopenia and circulating blasts. Bone marrow biopsy 02/2022 revealed AML-80-90% blasts, cytogenetics revealed trisomy 21, NGS negative for any genomic alterations. He was started on induction chemotherapy with 7+3 regimen. He tolerated treatment fairly well. He did end up having covid infection. He recovered. Repeat bone marrow 03/30/22 revealed a complete response. He then went on to have his first dose of consolidation with high- dose araC, tolerated well other then need for transfusions. He is admitted today for consolidation cycle 2. Patient denies fevers, oral irritation, sore throat, headache, cough, palpitations, nausea, vomiting, abdominal pain or cramping, acute changes in bowel or bladder habits, swelling in the legs, rashes, bleeding or pain. He is independently ambulatory. He is tolerating oral intake. Review of Systems 14 point review of systems is negative Past Medical History Past Medical History: Cancer Additional Past Medical History / Comment(s): Pt recently admitted to [facility] on with severe pancytopenia with mucous membrane bleeding. Other hx: AML, leukocytosis/thrombocytopenia, pancytopenia, coagulopathy/neuropenic fever, covid/pneumonia, anemia with blood transfusions. History of Any Multi-Drug Resistant Organisms: None Reported Past Surgical History: Adenoidectomy, Tonsillectomy Additional Past Surgical History / Comment(s): BMAs, picc line placed Past Anesthesia/Blood Transfusion Reactions: No Reported Reaction Smoking Status: Never smoker - Past Family History Mother Family Medical History: Cancer Additional Family Medical History / Comment(s): breast CA Father Family Medical History: No Reported History Medications and Allergies Home Medications Medication Instructions Recorded Confirmed Type ALPRAZolam [Xanax] 0.5 mg PO TID PRN tab 03/27/22 05/29/22 Rx Cholecalciferol [Vitamin D3 (125 250 mcg PO DAILY #30 tab 03/27/22 05/29/22 Rx Mcg = 5000 Iu)] Acetaminophen Tab [Tylenol] 650 mg PO Q6HR PRN tab 04/29/22 05/29/22 Rx Acyclovir [Zovirax] 400 mg PO BID #60 tablet 04/29/22 05/29/22 Rx Ciprofloxacin HCl [Cipro] 500 mg PO DAILY 30 Days #30 tab 04/29/22 05/29/22 Rx bisacodyL [Dulcolax] 5 mg PO DAILY PRN tab 04/29/22 05/29/22 Rx hydrOXYzine HCL [Atarax] 25 mg PO QID PRN #45 tab 04/29/22 05/29/22 Rx Sennosides-Docusate Sodium 1 tab PO HS 05/07/22 05/29/22 History [Senokot-S] Allergies Allergy/AdvReac Type Severity Reaction Status Date / Time No Known Allergies Allergy Verified 05/29/22 09:04 Physical Exam Vitals: Vital Signs Temp Pulse Resp BP Pulse Ox 05/29/22 16:07 98.1 F 75 20 132/76 94 L 05/29/22 11:01 98.3 F 70 20 141/82 Intake and Output 05/29/22 05/29/22 05/29/22 06:59 14:59 22:59 Other: Weight 120.656 kg - Constitutional General appearance: average body habitus, cooperative, no acute distress - EENT Eyes: anicteric sclerae, EOMI ENT: hearing grossly normal, normal oropharynx - Neck Neck: no lymphadenopathy - Respiratory Respiratory: bilateral: CTA - Cardiovascular Rhythm: regular Heart sounds: normal: S1, S2 Abnormal Heart Sounds: no systolic murmur, no diastolic murmur, no rub, no S3 Ga llop, no S4 Gallop, no click, no other leg Peripheral Edema: bilateral: None - Gastrointestinal General gastrointestinal: no absent bowel sounds, no decreased bowel sounds, no distended, no hepatomegaly, no hyperactive bowel sounds, normal bowel sounds, no organomegaly, no rigid, no scaphoid, soft, no splenomegaly, no tenderness, no umbilical hernia, no ventral hernia - Integumentary Integumentary: normal - Neurologic Neurologic: CNII-XII intact - Musculoskeletal Musculoskeletal: strength equal bilaterally - Psychiatric Psychiatric: A&O x's 3, appropriate affect, intact judgment & insight Results CBC & Chem 7: 05/29/22 09:53 05/29/22 09:53 Labs: Abnormal Lab Results - Last 24 Hours (Table) 08/22/22 Range/Units 09:53 RBC 3.75 L (4.30-5.90) m/uL Hgb 11.4 L (13.0-17.5) gm/dL Hct 34.5 L (39.0-53.0) % RDW 21.9 H (11.5-15.5) % Thrombosis Risk Factor Assmnt - DVT/VTE Prophylaxis DVT/VTE Prophylaxis: Pharmacologic Prophylaxis ordered - Choose All That Apply Any of the Below Risk Factors Present?: Yes Each Factor Represents 1 point: Obesity (BMI >25) Other Risk Factors: Yes Each Risk Factor Represents 2 Points: Malignancy Other congenital or acquired thrombophilia - If yes, enter type in comment: No Thrombosis Risk Factor Assessment Total Risk Factor Score: 3 Thrombosis Risk Factor Assessment Level: Moderate Risk Assessment and Plan (1) AML (acute myelogenous leukemia) Current Visit: Yes Status: Chronic Priority: High Code(s): C92.00 - ACUTE MYELOBLASTIC LEUKEMIA, NOT HAVING ACHIEVED REMISSION SNOMED Code(s): 66738749 Plan: Admit for cycle #2 of consolidation of high-dose araC next Supportive medications including anti-emetics and steroid eyedrops ordered. Aggressive oral care. GI and DVT prophylaxis home medications reconciled Early in frequent ambulation [place] fluid intake. Daily labs Daily follow-up attests: I preformed H&P, seen and examined patient, developed impression and plan of care. Discussed with dictator. Agree with dictation, documented as a scribe.
[2022-05-29] MEDS: MAG HYDROX/AL HYDROX/SIMETH 30 ML, diphenhydrAMINE ELIXIR 75 MG, LIDOCAINE VISCOUS 2% 3... PO SCH ×6 (17:22→21:25)
[2022-05-29] MEDS: FAMOTIDINE 20 MG TAB PO SCH (21:24)
[2022-05-30] MEDS: SODIUM CHLORIDE 0.9% 1,000 ML IV SCH ×4 (04:16→22:09)
[2022-05-30] MEDS: prednisoLONE ACETATE 1% OPHTH DROPS 5 ML BTL BOTH EYES SCH ×4 (08:32→21:07)
[2022-05-30] MEDS: MAG HYDROX/AL HYDROX/SIMETH 30 ML, diphenhydrAMINE ELIXIR 75 MG, LIDOCAINE VISCOUS 2% 3... PO SCH ×9 (08:32→21:07)
[2022-05-30] MEDS: SALT AND SODA MOUTHWASH 1,000 ML PO SCH ×3 (08:32→16:32)
[2022-05-30] MEDS: ENOXAPARIN 40 MG/0.4 ML SYRINGE SQ SCH (08:32)
[2022-05-30 09:06] LABS: Basophils # (A) 0.01 X 10*3/uL (0.00-0.10); Basophils % (A) 0.1 %; Eosinophils # (A) 0 X 10*3/uL (0.04-0.35); Eosinophils % (A) 0 %; HCT 32.1 % (39.6-50.0); HGB 10.4 g/dL (13.0-17.0); Immature Grans, Automated 0.5 %; Lymphocytes % (A) 3.7 %; MCH 29.5 pg (27.0-32.0); MCHC 32.4 g/dL (32.0-37.0); MCV 91.2 fL (80.0-97.0); Mean Platelet Volume 11.2 fL (9.5-12.2); Monocytes # (A) 0.33 X 10*3/uL (0.20-1.00); Monocytes % (A) 4.1 %; NRBC Per 100 WBC 0 /100 WBCS (0.0-0.0); Neutrophils # (A) 7.38 X 10*3/uL (1.80-7.70); Neutrophils % (A) 91.6 %; Platelet Count 239 X 10*3/uL (140-440); RBC 3.52 X 10*6/uL (4.40-5.60); RDW 21.1 % (11.5-14.5); WBC 8.06 X 10*3/uL (4.50-10.00)
[2022-05-30] MEDS ORDERED: ALPRAZolam 0.5 MG TAB PO PRN (09:13)
[2022-05-30] MEDS ORDERED: hydrOXYzine HCL 25 MG TAB PO PRN (09:14)
[2022-05-30] MEDS ORDERED: bisacodyL 5 MG TABLET.DR PO PRN (09:14)
[2022-05-30] MEDS ORDERED: ACETAMINOPHEN TAB 325 MG TAB PO PRN (09:14)
[2022-05-30 09:25] LABS: African American GFR (CKD) 147.3 (60.0-200.0); Albumin 4.2 g/dL (3.8-4.9); Albumin/Globulin Ratio 2.26 (1.60-3.17); Anion Gap 10.5 mmol/L (10.00-18.00); BUN/Creat Ratio 14.38 Ratio (12.00-20.00); Blood Urea Nitrogen 10.5 mg/dL (9.0-27.0); Carbon Dioxide 20.8 mmol/L (20.0-27.5); Globulin 1.9 g/dL (1.6-3.3); Non-African American GFR(CKD) 127.1 (60.0-200.0); Potassium 4.1 mmol/L (3.5-5.5); Total Bilirubin 0.6 mg/dL (0.30-1.20); Total Protein 6.1 g/dL (6.2-8.2); Uric Acid 6.9 mg/dL (3.7-8.7)
[2022-05-30] MEDS: CHOLECALCIFEROL 125 MCG (5000 IU) TABLET PO SCH (10:18)
--- NOTE | 2022-05-30 12:52 | P.PN ---
Subjective Progress Note Date: 05/30/22 Principal diagnosis: AML, cycle #2 consolidation HD [facility]-C In f/u today pt denies fevers, chills, oral irritation, sore throat, cough, palpitations, N,V, abd pain, acute changes in bowel or bladder, rash, pain or anxiety. He is fully ambulatory. Objective - Vital Signs Vital signs: Vital Signs Temp 98.1 F 05/30/22 12:00 Pulse 75 05/30/22 12:00 Resp 16 05/30/22 12:00 BP 127/77 05/30/22 12:00 Pulse Ox 99 05/30/22 12:00 FiO2 Intake & Output 05/29/22 05/30/22 05/30/22 18:59 06:59 18:59 Intake Total 3320 Balance 3320 Weight 120.656 kg Intake: Intake, IV Titration 2370 Amount Cytarabine/Pf 7,000 mg In 570 Sodium Chloride 0.9% 500 ml 500 ml @ 190 mls/hr IV Q48H [facility] Rx#:[id number] Sodium Chloride 0.9% 1, 1800 000 ml @ 150 mls/hr IV . Q6H40M [facility] Rx#:[id number] Oral 950 Other: Voiding Method Toilet # Voids 2 2 - Constitutional General appearance: Present: average body habitus, cooperative, no acute distress - EENT Eyes: Present: anicteric sclerae, EOMI ENT: Present: hearing grossly normal, normal oropharynx - Respiratory Respiratory: bilateral: CTA - Cardiovascular Rhythm: regular Heart sounds: normal: S1, S2 Abnormal Heart Sounds: Absent: systolic murmur, diastolic murmur, rub, S3 Gallop, S4 Gallop, click, other - Peripheral edema leg Peripheral Edema: bilateral: None - Gastrointestinal General gastrointestinal: Present: normal bowel sounds, soft - Integumentary Integumentary: Present: normal turgor, pale - Neurologic Neurologic: Present: CNII-XII intact - Musculoskeletal Musculoskeletal: Present: strength equal bilaterally - Psychiatric Psychiatric: Present: A&O x's 3, appropriate affect, intact judgment & insight - Labs CBC & Chem 7: 05/30/22 03:53 05/30/22 03:53 Labs: Abnormal Lab Results - Last 24 Hours (Table) 05/30/22 05/30/22 Range/Units 03:53 03:53 RBC 3.52 L (4.40-5.60) X 10*6/uL Hgb 10.4 L (13.0-17.0) g/dL Hct 32.1 L (39.6-50.0) % RDW 21.1 H (11.5-14.5) % Lymphocytes # 0.30 L (0.90-5.00) X 10*3/uL Eosinophils # 0 L (0.04-0.35) X 10*3/uL Glucose 118 H (70-110) mg/dL Total Protein 6.1 L (6.2-8.2) g/dL Assessment and Plan (1) AML (acute myelogenous leukemia) Current Visit: Yes Status: Chronic Priority: High Code(s): C92.00 - ACUTE MYELOBLASTIC LEUKEMIA, NOT HAVING ACHIEVED REMISSION SNOMED Code(s): 56364388 Plan: Admit for cycle #2 of consolidation of high-dose araC. Cont tx, no dose adjustments or schedule changes Cont all supportive medications including anti-emetics and steroid eyedrops. Aggressive oral care. GI and DVT prophylaxis Home medications reconciled Early and frequent ambulation [place] fluid intake. CBC, CMP reviewed, no additional orders today. Daily labs Daily follow-up attests: I preformed H&P, seen and examined patient, developed impression and plan of care. Discussed with dictator. Agree with dictation, documented as a scribe.
[2022-05-30] MEDS: FAMOTIDINE 20 MG TAB PO SCH (21:07)
[2022-05-30] MEDS: SENNOSIDES-DOCUSATE SODIUM 1 EACH TAB PO SCH (21:07)
[2022-05-31] MEDS: SODIUM CHLORIDE 0.9% 1,000 ML IV SCH ×3 (04:34→17:50)
[2022-05-31] MEDS: ENOXAPARIN 40 MG/0.4 ML SYRINGE SQ SCH (08:29)
[2022-05-31] MEDS: CHOLECALCIFEROL 125 MCG (5000 IU) TABLET PO SCH (08:29)
[2022-05-31] MEDS: SALT AND SODA MOUTHWASH 1,000 ML PO SCH ×3 (08:29→17:52)
[2022-05-31] MEDS: MAG HYDROX/AL HYDROX/SIMETH 30 ML, diphenhydrAMINE ELIXIR 75 MG, LIDOCAINE VISCOUS 2% 3... PO SCH ×9 (08:30→21:07)
[2022-05-31] MEDS: prednisoLONE ACETATE 1% OPHTH DROPS 5 ML BTL BOTH EYES SCH ×4 (08:30→21:06)
[2022-05-31 09:06] LABS: Basophils # (A) 0.02 X 10*3/uL (0.00-0.10); Basophils % (A) 0.6 %; Eosinophils # (A) 0 X 10*3/uL (0.04-0.35); Eosinophils % (A) 0 %; HCT 29.2 % (39.6-50.0); HGB 9.4 g/dL (13.0-17.0); Immature Grans, Automated 0.3 %; Lymphocytes % (A) 27.6 %; MCH 30.3 pg (27.0-32.0); MCHC 32.2 g/dL (32.0-37.0); MCV 94.2 fL (80.0-97.0); Mean Platelet Volume 10.9 fL (9.5-12.2); Monocytes % (A) 13.8 %; NRBC Per 100 WBC 0 /100 WBCS (0.0-0.0); Neutrophils # (A) 2.09 X 10*3/uL (1.80-7.70); Neutrophils % (A) 57.7 %; Platelet Count 174 X 10*3/uL (140-440); RDW 21.6 % (11.5-14.5); WBC 3.62 X 10*3/uL (4.50-10.00)
[2022-05-31 09:37] LABS: African American GFR (CKD) 142.7 (60.0-200.0); Albumin 3.8 g/dL (3.8-4.9); Albumin/Globulin Ratio 2.27 (1.60-3.17); BUN/Creat Ratio 12.43 Ratio (12.00-20.00); Blood Urea Nitrogen 9.8 mg/dL (9.0-27.0); Calcium 8.5 mg/dL (8.7-10.3); Carbon Dioxide 21.3 mmol/L (20.0-27.5); Globulin 1.7 g/dL (1.6-3.3); Non-African American GFR(CKD) 123.1 (60.0-200.0); Total Bilirubin 0.6 mg/dL (0.30-1.20); Total Protein 5.5 g/dL (6.2-8.2); Uric Acid 5.9 mg/dL (3.7-8.7)
[2022-05-31] MEDS: FAMOTIDINE 20 MG/2 ML VIAL IV SCH (11:32)
[2022-05-31] MEDS: DEXAMETHASONE SOD PHOSPHATE 10 MG/ML 1 ML VIAL IV SCH (11:34)
[2022-05-31] MEDS: ONDANSETRON 16 MG in SODIUM CHLORIDE 0.9% 50 ML IVPB SCH (11:36)
[2022-05-31] MEDS: SODIUM CHLORIDE 0.9% IV SCH (12:00)
[2022-05-31] MEDS: CYTARABINE IV SCH (12:00)
--- NOTE | 2022-05-31 14:16 | P.PN ---
Subjective Progress Note Date: 05/31/22 Principal diagnosis: AML, cycle #2 consolidation HD [facility]-C In f/u today pt denies fevers, chills, oral irritation, sore throat, cough, palpitations, N,V, abd pain, acute changes in bowel or bladder, rash, pain or anxiety. He is fully ambulatory. He is eating fairly well. Denies pain. Objective - Vital Signs Vital signs: Vital Signs Temp 98.1 F 05/31/22 12:00 Pulse 59 L 05/31/22 12:00 Resp 16 05/31/22 12:00 BP 123/72 05/31/22 12:00 Pulse Ox 99 05/31/22 12:00 FiO2 Intake & Output 05/30/22 05/31/22 05/31/22 18:59 06:59 18:59 Intake Total 1800 2390 Output Total 700 Balance 1100 2390 Intake: Intake, IV Titration 1800 1800 Amount Sodium Chloride 0.9% 1, 1800 1800 000 ml @ 150 mls/hr IV . Q6H40M [facility] Rx#:[id number] Oral 590 Output: Urine 700 Other: Voiding Method Toilet Toilet - Constitutional General appearance: Present: cooperative, no acute distress, obese - EENT Eyes: Present: anicteric sclerae, EOMI ENT: Present: hearing grossly normal, normal oropharynx - Respiratory Respiratory: bilateral: CTA - Cardiovascular Rhythm: regular Heart sounds: normal: S1, S2 Abnormal Heart Sounds: Absent: systolic murmur, diastolic murmur, rub, S3 Gallop, S4 Gallop, click, other - Peripheral edema leg Peripheral Edema: bilateral: None - Gastrointestinal General gastrointestinal: Present: normal bowel sounds, soft. Absent: absent bowel sounds, decreased bowel sounds, distended, hepatomegaly, hyperactive bowel sounds, organomegaly, rigid, scaphoid, splenomegaly, tenderness, umbilical hernia, ventral hernia - Integumentary Integumentary: Present: normal - Neurologic Neurologic: Present: CNII-XII intact - Musculoskeletal Musculoskeletal: Present: strength equal bilaterally - Psychiatric Psychiatric: Present: A&O x's 3, appropriate affect, intact judgment & insight - Labs CBC & Chem 7: 05/31/22 05:19 05/31/22 05:19 Labs: Abnormal Lab Results - Last 24 Hours (Table) 08/24/22 08/24/22 Range/Units 05:19 05:19 WBC 3.62 L (4.50-10.00) X 10*3/uL RBC 3.10 L (4.40-5.60) X 10*6/uL Hgb 9.4 L (13.0-17.0) g/dL Hct 29.2 L (39.6-50.0) % RDW 21.6 H (11.5-14.5) % Eosinophils # 0 L (0.04-0.35) X 10*3/uL Calcium 8.5 L (8.7-10.3) mg/dL Total Protein 5.5 L (6.2-8.2) g/dL Assessment and Plan (1) AML (acute myelogenous leukemia) Current Visit: Yes Status: Chronic Priority: High Code(s): C92.00 - ACUTE MYELOBLASTIC LEUKEMIA, NOT HAVING ACHIEVED REMISSION SNOMED Code(s): 92969915 Plan: Admit for cycle #2 of consolidation of high-dose araC. Cont tx, no dose adjustments or schedule changes Cont all supportive medications including anti-emetics and steroid eyedrops. Aggressive oral care. GI and DVT prophylaxis Home medications reconciled Early and frequent ambulation-pt instructed to ambulate in hallway with shoes on [place] fluid intake. CBC, CMP reviewed, no additional orders today. Daily labs Daily follow-up attests: I preformed H&P, seen and examined patient, developed impression and plan of care. Discussed with dictator. Agree with dictation, documented as a scribe.
[2022-05-31] MEDS: SENNOSIDES-DOCUSATE SODIUM 1 EACH TAB PO SCH (21:05)
[2022-05-31] MEDS: FAMOTIDINE 20 MG TAB PO SCH (21:05)
[2022-06-01] MEDS: CYTARABINE IV SCH (00:05)
[2022-06-01] MEDS: SODIUM CHLORIDE 0.9% IV SCH (00:05)
[2022-06-01] MEDS: SODIUM CHLORIDE 0.9% 1,000 ML IV SCH ×3 (08:27→20:29)
[2022-06-01] MEDS: ENOXAPARIN 40 MG/0.4 ML SYRINGE SQ SCH (08:28)
[2022-06-01] MEDS: CHOLECALCIFEROL 125 MCG (5000 IU) TABLET PO SCH (08:28)
[2022-06-01] MEDS: SALT AND SODA MOUTHWASH 1,000 ML PO SCH ×3 (08:30→17:47)
[2022-06-01] MEDS: prednisoLONE ACETATE 1% OPHTH DROPS 5 ML BTL BOTH EYES SCH ×4 (08:30→20:28)
[2022-06-01] MEDS: MAG HYDROX/AL HYDROX/SIMETH 30 ML, diphenhydrAMINE ELIXIR 75 MG, LIDOCAINE VISCOUS 2% 3... PO SCH ×9 (08:30→20:28)
[2022-06-01 10:52] LABS: Basophils # (A) 0.01 X 10*3/uL (0.00-0.10); Basophils % (A) 0.1 %; Eosinophils # (A) 0 X 10*3/uL (0.04-0.35); Eosinophils % (A) 0 %; HCT 28.3 % (39.6-50.0); HGB 9.4 g/dL (13.0-17.0); Immature Grans, Automated 0.4 %; Lymphocytes # (A) 0.26 X 10*3/uL (0.90-5.00); Lymphocytes % (A) 3.6 %; MCHC 33.2 g/dL (32.0-37.0); MCV 90.4 fL (80.0-97.0); Mean Platelet Volume 11.4 fL (9.5-12.2); Monocytes # (A) 0.22 X 10*3/uL (0.20-1.00); Monocytes % (A) 3.1 %; NRBC Per 100 WBC 0 /100 WBCS (0.0-0.0); Neutrophils # (A) 6.69 X 10*3/uL (1.80-7.70); Neutrophils % (A) 92.8 %; Platelet Count 189 X 10*3/uL (140-440); RBC 3.13 X 10*6/uL (4.40-5.60); RDW 19.9 % (11.5-14.5); WBC 7.21 X 10*3/uL (4.50-10.00)
[2022-06-01 11:16] LABS: Uric Acid 4.3 mg/dL (3.7-8.7)
[2022-06-01 11:33] LABS: African American GFR (CKD) 149.9 (60.0-200.0); Albumin/Globulin Ratio 2.22 (1.60-3.17); Anion Gap 9.4 mmol/L (10.00-18.00); BUN/Creat Ratio 15.29 Ratio (12.00-20.00); Blood Urea Nitrogen 10.7 mg/dL (9.0-27.0); Calcium 9.2 mg/dL (8.7-10.3); Carbon Dioxide 21.6 mmol/L (20.0-27.5); Globulin 1.8 g/dL (1.6-3.3); Non-African American GFR(CKD) 129.3 (60.0-200.0); Total Protein 5.8 g/dL (6.2-8.2)
--- NOTE | 2022-06-01 18:05 | P.PN ---
Subjective Progress Note Date: 06/01/22 Principal diagnosis: AML, cycle #2 consolidation HD [facility]-C In f/u today pt denies any complaints on a 14 point review of systems. He is eating. He is ambulating around the room with rubber soled shoes on. He is drinking decent amount of fluids. He denies any pain Objective - Vital Signs Vital signs: Vital Signs Temp 98.0 F 06/01/22 16:57 Pulse 74 06/01/22 16:57 Resp 16 06/01/22 16:57 BP 125/76 06/01/22 16:57 Pulse Ox 98 06/01/22 16:57 FiO2 Intake & Output 05/31/22 06/01/22 06/01/22 18:59 06:59 18:59 Intake Total 2420 1800 Balance 2420 1800 Intake: Intake, IV Titration 2420 1800 Amount Cytarabine/Pf 7,000 mg In 570 Sodium Chloride 0.9% 500 ml 500 ml @ 190 mls/hr IV Q48H [facility] Rx#:[id number] Ondansetron 16 mg In 50 Sodium Chloride 0.9% 50 ml @ 232 mls/hr IVPB Q48H [facility] Rx#:[id number] Sodium Chloride 0.9% 1, 1800 1800 000 ml @ 150 mls/hr IV . Q6H40M [facility] Rx#:[id number] Other: Voiding Method Toilet # Voids 1 # Bowel Movements 0 1 - Constitutional General appearance: Present: cooperative, no acute distress, obese - EENT Eyes: Present: anicteric sclerae, EOMI ENT: Present: hearing grossly normal, normal oropharynx - Respiratory Respiratory: bilateral: CTA - Cardiovascular Rhythm: regular Heart sounds: normal: S1, S2 Abnormal Heart Sounds: Absent: systolic murmur, diastolic murmur, rub, S3 Gal lop, S4 Gallop, click, other - Peripheral edema leg Peripheral Edema: bilateral: None - Gastrointestinal General gastrointestinal: Present: normal bowel sounds, soft - Integumentary Integumentary: Present: normal turgor, pale - Neurologic Neurologic: Present: CNII-XII intact - Musculoskeletal Musculoskeletal: Present: strength equal bilaterally - Psychiatric Psychiatric: Present: A&O x's 3, appropriate affect, intact judgment & insight - Labs CBC & Chem 7: 06/01/22 07:06 06/01/22 07:06 Labs: Abnormal Lab Results - Last 24 Hours (Table) 06/01/22 06/01/22 Range/Units 07:06 07:06 RBC 3.13 L (4.40-5.60) X 10*6/uL Hgb 9.4 L (13.0-17.0) g/dL Hct 28.3 L (39.6-50.0) % RDW 19.9 H (11.5-14.5) % Lymphocytes # 0.26 L (0.90-5.00) X 10*3/uL Eosinophils # 0 L (0.04-0.35) X 10*3/uL Anion Gap 9.40 L (10.00-18.00) mmol/L AST 13 L (14-35) U/L Total Protein 5.8 L (6.2-8.2) g/dL Assessment and Plan (1) AML (acute myelogenous leukemia) Current Visit: Yes Status: Chronic Priority: High Code(s): C92.00 - ACUTE MYELOBLASTIC LEUKEMIA, NOT HAVING ACHIEVED REMISSION SNOMED Code(s): 66290773 Plan: Admit for cycle #2 of consolidation of high-dose araC. Cont tx, no dose adjustments or schedule changes Cont all supportive medications including anti-emetics and steroid eyedrops. Aggressive oral care. GI and DVT prophylaxis Early and frequent ambulation-pt instructed to ambulate in hallway with shoes on [place] fluid intake. CBC, CMP reviewed, no additional orders today. Daily labs Daily follow-up. Plan for DC as soon as chemotherapy complaint and patient has been examined and deemed stable for the same.
[2022-06-01] MEDS: SENNOSIDES-DOCUSATE SODIUM 1 EACH TAB PO SCH (20:27)
[2022-06-01] MEDS: FAMOTIDINE 20 MG TAB PO SCH (20:27)
[2022-06-02 00:54] VITALS: RESP 16
[2022-06-02] MEDS: SODIUM CHLORIDE 0.9% 1,000 ML IV SCH ×4 (04:18→20:51)
[2022-06-02] MEDS: ENOXAPARIN 40 MG/0.4 ML SYRINGE SQ SCH (08:27)
[2022-06-02] MEDS: prednisoLONE ACETATE 1% OPHTH DROPS 5 ML BTL BOTH EYES SCH ×4 (08:28→20:51)
[2022-06-02] MEDS: SALT AND SODA MOUTHWASH 1,000 ML PO SCH ×3 (08:28→17:08)
[2022-06-02] MEDS: CHOLECALCIFEROL 125 MCG (5000 IU) TABLET PO SCH (08:28)
[2022-06-02] MEDS: MAG HYDROX/AL HYDROX/SIMETH 30 ML, diphenhydrAMINE ELIXIR 75 MG, LIDOCAINE VISCOUS 2% 3... PO SCH ×9 (08:29→20:51)
[2022-06-02 11:16] LABS: Anisocytosis Slight; Basophils % (A) 1 %; Eosinophils # (A) 0.1 k/uL (0-0.7); Eosinophils % (A) 1 %; HCT 31.8 % (39.0-53.0); HGB 10.3 gm/dL (13.0-17.5); Hypochromasia Slight; Lymphocytes # (A) 1.3 k/uL (1.0-4.8); Lymphocytes % (A) 27 %; MCH 29.6 pg (25.0-35.0); MCHC 32.3 g/dL (31.0-37.0); MCV 91.7 fL (80.0-100.0); Mean Platelet Volume 7.5; Monocytes # (A) 0.1 k/uL (0-1.0); Monocytes % (A) 1 %; Neutrophils # (A) 3.3 k/uL (1.3-7.7); Neutrophils % (A) 70 %; Platelet Count 178 k/uL (150-450); Poikilocytosis Slight; RBC 3.47 m/uL (4.30-5.90); RDW 19.7 % (11.5-15.5); WBC 4.8 k/uL (3.8-10.6)
[2022-06-02 11:27] LABS: ALT 27 U/L (4-49); AST 25 U/L (17-59); African American GFR (CKD) >90 (>60 ml/min/1.73 sqM); Albumin/Globulin Ratio 1.7; Alkaline Phosphatase 45 U/L (38-126); Anion Gap 10 mmol/L; Blood Urea Nitrogen 12 mg/dL (9-20); Calcium 8.9 mg/dL (8.4-10.2); Carbon Dioxide 23 mmol/L (22-30); Chloride 106 mmol/L (98-107); Globulin 2.3 g/dL; Glucose 83 mg/dL (74-99); Non-African American GFR(CKD) >90 (>60 ml/min/1.73 sqM); Potassium 3.8 mmol/L (3.5-5.1); Sodium 139 mmol/L (137-145); Total Bilirubin 0.9 mg/dL (0.2-1.3); Total Protein 6.3 g/dL (6.3-8.2); Uric Acid 4.3 mg/dL (3.5-8.5)
[2022-06-02] MEDS: FAMOTIDINE 20 MG/2 ML VIAL IV SCH (11:45)
[2022-06-02] MEDS: DEXAMETHASONE SOD PHOSPHATE 10 MG/ML 1 ML VIAL IV SCH (11:45)
[2022-06-02] MEDS: ONDANSETRON 16 MG in SODIUM CHLORIDE 0.9% 50 ML IVPB SCH (11:45)
[2022-06-02] MEDS: SODIUM CHLORIDE 0.9% IV SCH ×2 (12:23→23:48)
[2022-06-02] MEDS: CYTARABINE IV SCH ×2 (12:23→23:48)
[2022-06-02] MEDS: SENNOSIDES-DOCUSATE SODIUM 1 EACH TAB PO SCH (20:51)
[2022-06-02] MEDS: FAMOTIDINE 20 MG TAB PO SCH (20:51)
--- NOTE | 2022-06-02 20:56 | P.PN ---
Subjective Progress Note Date: 06/02/22 Day number 5 consolidation, tolerating well, labs stable, Seen and evlauted this early am Objective - Vital Signs Vital signs: Vital Signs Temp 98 F 06/02/22 15:55 Pulse 74 06/02/22 15:55 Resp 16 06/02/22 15:55 BP 124/70 06/02/22 15:55 Pulse Ox 96 06/02/22 15:55 FiO2 Intake & Output 06/02/22 06/02/22 06/03/22 06:59 18:59 06:59 Intake Total 570 Balance 570 Intake: Intake, IV Titration 570 Amount Cytarabine/Pf 7,000 mg In 570 Sodium Chloride 0.9% 500 ml 500 ml @ 190 mls/hr IV Q48H [facility] Rx#:[id number] Other: Voiding Method Toilet Toilet - Exam - Constitutional General appearance: Present: cooperative, no acute distress, obese - EENT Eyes: Present: anicteric sclerae, EOMI ENT: Present: hearing grossly normal, normal oropharynx - Respiratory Respiratory: bilateral: CTA - Cardiovascular Rhythm: regular Heart sounds: normal: S1, S2 Abnormal Heart Sounds: Absent: systolic murmur, diastolic murmur, rub, S3 Gallop, S4 Gallop, click, other - Peripheral edema leg Peripheral Edema: bilateral: None - Gastrointestinal General gastrointestinal: Present: normal bowel sounds, soft - Integumentary Integumentary: Present: normal turgor, pale - Neurologic Neurologic: Present: CNII-XII intact - Musculoskeletal Musculoskeletal: Present: strength equal bilaterally - Psychiatric Psychiatric: Present: A&O x's 3, appropriate affect, intact judgment & insight - Labs CBC & Chem 7: 06/02/22 11:03 06/02/22 11:03 Labs: Abnormal Lab Results - Last 24 Hours (Table) 06/02/22 Range/Units 11:03 RBC 3.47 L (4.30-5.90) m/uL Hgb 10.3 L (13.0-17.5) gm/dL Hct 31.8 L (39.0-53.0) % RDW 19.7 H (11.5-15.5) % Assessment and Plan Plan: Assessment and Plan (1) AML (acute myelogenous leukemia) Current Visit: Yes Status: Chronic Priority: High Code(s): C92.00 - ACUTE MYELOBLASTIC LEUKEMIA, NOT HAVING ACHIEVED REMISSION SNOMED Code(s): 44366499 Plan: Admit for cycle #2 , day #5 of consolidation of high-dose araC. Cont tx, no dose adjustments or schedule changes Cont all supportive medications including anti-emetics and steroid eyedrops. Aggressive oral care. GI and DVT prophylaxis Early and frequent ambulation-pt instructed to ambulate in hallway with shoes on [place] fluid intake. CBC, CMP reviewed, no additional orders today. Daily labs Daily follow-up. Plan for DC as soon as chemotherapy Likely Sunday Dr. Waller: I have completed the completed history and physical and developed the above impression and plan, agree with dictation, dictated as a scribe
[2022-06-03] MEDS: SODIUM CHLORIDE 0.9% 1,000 ML IV SCH ×3 (03:00→16:40)
[2022-06-03] MEDS: CHOLECALCIFEROL 125 MCG (5000 IU) TABLET PO SCH (08:49)
[2022-06-03] MEDS: ENOXAPARIN 40 MG/0.4 ML SYRINGE SQ SCH (08:49)
[2022-06-03] MEDS: SALT AND SODA MOUTHWASH 1,000 ML PO SCH ×2 (08:49→12:33)
[2022-06-03] MEDS: prednisoLONE ACETATE 1% OPHTH DROPS 5 ML BTL BOTH EYES SCH ×2 (08:52→12:33)
[2022-06-03] MEDS: MAG HYDROX/AL HYDROX/SIMETH 30 ML, diphenhydrAMINE ELIXIR 75 MG, LIDOCAINE VISCOUS 2% 3... PO SCH ×3 (08:53)
[2022-06-03 10:51] LABS: ALT 28 U/L (4-49); AST 23 U/L (17-59); African American GFR (CKD) >90 (>60 ml/min/1.73 sqM); Albumin 4.2 g/dL (3.5-5.0); Albumin/Globulin Ratio 1.8; Alkaline Phosphatase 45 U/L (38-126); Anion Gap 12 mmol/L; Blood Urea Nitrogen 14 mg/dL (9-20); Calcium 9.4 mg/dL (8.4-10.2); Carbon Dioxide 22 mmol/L (22-30); Chloride 105 mmol/L (98-107); Globulin 2.4 g/dL; Glucose 90 mg/dL (74-99); Non-African American GFR(CKD) >90 (>60 ml/min/1.73 sqM); Sodium 139 mmol/L (137-145); Total Bilirubin 1.3 mg/dL (0.2-1.3); Total Protein 6.6 g/dL (6.3-8.2); Uric Acid 3.5 mg/dL (3.5-8.5)
[2022-06-03 13:31] LABS: Anisocytosis Slight; Basophils % (A) 0 %; Eosinophils % (A) 0 %; HCT 34.5 % (39.0-53.0); HGB 11.2 gm/dL (13.0-17.5); Hypochromasia Slight; Lymphocytes # (A) 0.5 k/uL (1.0-4.8); Lymphocytes % (A) 5 %; MCH 29.2 pg (25.0-35.0); MCHC 32.5 g/dL (31.0-37.0); MCV 89.7 fL (80.0-100.0); Mean Platelet Volume 11.1; Monocytes # (A) 0.2 k/uL (0-1.0); Monocytes % (A) 2 %; Neutrophils # (A) 8.9 k/uL (1.3-7.7); Neutrophils % (A) 92 %; Platelet Count 135 k/uL (150-450); Poikilocytosis Slight; RBC 3.84 m/uL (4.30-5.90); WBC 9.7 k/uL (3.8-10.6)
[2022-06-03 16:19] VITALS: BP 173/83; PULSE 79; TEMP 97.6
--- NOTE | 2022-06-03 17:13 | P.DS ---
Providers Date of admission: 05/29/22 08:45 Expected date of discharge: 06/03/22 Attending physician: Carrington Almanza Primary care physician: Usama De Souza [facility] Course: Chemo COnsoliddation #2 Patient Condition at Discharge: Good Plan - Discharge Summary Discharge Rx Participant: No New Discharge Prescriptions: New Mag Hydrox/Al Hydrox/Simeth [Maalox] 30 ml PO TID ml prednisoLONE ACETATE 1% OPHTH [Pred Forte 1%] 1 drops BOTH EYES QID ml Famotidine [Pepcid] 20 mg PO HS tab ALPRAZolam [Xanax] 0.5 mg PO QID PRN tab PRN Reason: Anxiety Lidocaine Viscous 2% [Xylocaine Viscous] 30 ml PO TID ml Continue ALPRAZolam [Xanax] 0.5 mg PO TID PRN tab PRN Reason: Anxiety hydrOXYzine HCL [Atarax] 25 mg PO QID PRN #45 tab PRN Reason: Itching bisacodyL [Dulcolax] 5 mg PO DAILY PRN tab PRN Reason: Constipation Cholecalciferol [Vitamin D3 (125 Mcg = 5000 Iu)] 250 mcg PO DAILY #30 tab Ciprofloxacin HCl [Cipro] 500 mg PO DAILY 30 Days #30 tab Acetaminophen Tab [Tylenol] 650 mg PO Q6HR PRN tab PRN Reason: Fever And/ Or Pain Acyclovir [Zovirax] 400 mg PO BID #60 tablet Sennosides-Docusate Sodium [Senokot-S] 1 tab PO HS Discharge Medication List ALPRAZolam [Xanax] 0.5 mg PO TID PRN tab 03/27/22 [Rx] Cholecalciferol [Vitamin D3 (125 Mcg = 5000 Iu)] 250 mcg PO DAILY #30 tab 03/27/22 [Rx] Acetaminophen Tab [Tylenol] 650 mg PO Q6HR PRN tab 04/29/22 [Rx] Acyclovir [Zovirax] 400 mg PO BID #60 tablet 04/29/22 [Rx] Ciprofloxacin HCl [Cipro] 500 mg PO DAILY 30 Days #30 tab 04/29/22 [Rx] bisacodyL [Dulcolax] 5 mg PO DAILY PRN tab 04/29/22 [Rx] hydrOXYzine HCL [Atarax] 25 mg PO QID PRN #45 tab 04/29/22 [Rx] Sennosides-Docusate Sodium [Senokot-S] 1 tab PO HS 05/07/22 [History] ALPRAZolam [Xanax] 0.5 mg PO QID PRN tab 06/03/22 [Rx] Famotidine [Pepcid] 20 mg PO HS tab 06/03/22 [Rx] Lidocaine Viscous 2% [Xylocaine Viscous] 30 ml PO TID ml 06/03/22 [Rx] Mag Hydrox/Al Hydrox/Simeth [Maalox] 30 ml PO TID ml 06/03/22 [Rx] prednisoLONE ACETATE 1% OPHTH [Pred Forte 1%] 1 drops BOTH EYES QID ml 06/03/22 [Rx] Follow up Appointment(s)/Referral(s): Carrington Almanza MD [STAFF PHYSICIAN] - 1-2 Days Discharge Disposition: HOME SELF-CARE
--- NOTE | 2022-06-03 17:26 | P.DS ---
Providers Date of admission: 05/29/22 08:45 Expected date of discharge: 06/03/22 Attending physician: Carrington Almanza Primary care physician: Usama De Souza [facility] Course: Mr. Sultana is a very pleasant 27-year-old gentleman with a history of AML, status post induction chemotherapy followed by 1 cycle of consolidation with HiDAC, here for his second cycle of consolidation chemotherapy with HiDAC. He tolerated this very well. CBC monitored with downtrending platelets as expected however platelets are 135 on day of discharge. Hemoglobin stable 911 and normal white count. He was discharged in stable condition with instructions to follow-up on Sunday for repeat blood work and continue his supportive medications and eyedrops. On day of discharge her exam is as follows: VSS, afebrile. Gen: NAD HEENT: Conjunctival pallor. No scleral icterus. Mucosa moist. Neck: Supple Lungs: No respiratory distress Heart: Regular rate Abd: Soft, nontender MSK: appropriate strength Neuro: Alert and oriented x3 Skin: No jaundice Psych: Appropriate affect Patient Condition at Discharge: Good Plan - Discharge Summary Discharge Rx Participant: No New Discharge Prescriptions: New Mag Hydrox/Al Hydrox/Simeth [Maalox] 30 ml PO TID ml prednisoLONE ACETATE 1% OPHTH [Pred Forte 1%] 1 drops BOTH EYES QID ml Famotidine [Pepcid] 20 mg PO HS tab ALPRAZolam [Xanax] 0.5 mg PO QID PRN tab PRN Reason: Anxiety Lidocaine Viscous 2% [Xylocaine Viscous] 30 ml PO TID ml Continue ALPRAZolam [Xanax] 0.5 mg PO TID PRN tab PRN Reason: Anxiety hydrOXYzine HCL [Atarax] 25 mg PO QID PRN #45 tab PRN Reason: Itching bisacodyL [Dulcolax] 5 mg PO DAILY PRN tab PRN Reason: Constipation Cholecalciferol [Vitamin D3 (125 Mcg = 5000 Iu)] 250 mcg PO DAILY #30 tab Ciprofloxacin HCl [Cipro] 500 mg PO DAILY 30 Days #30 tab Acetaminophen Tab [Tylenol] 650 mg PO Q6HR PRN tab PRN Reason: Fever And/ Or Pain Acyclovir [Zovirax] 400 mg PO BID #60 tablet Sennosides-Docusate Sodium [Senokot-S] 1 tab PO HS Discharge Medication List ALPRAZolam [Xanax] 0.5 mg PO TID PRN tab 03/27/22 [Rx] Cholecalciferol [Vitamin D3 (125 Mcg = 5000 Iu)] 250 mcg PO DAILY #30 tab 03/27/22 [Rx] Acetaminophen Tab [Tylenol] 650 mg PO Q6HR PRN tab 04/29/22 [Rx] Acyclovir [Zovirax] 400 mg PO BID #60 tablet 04/29/22 [Rx] Ciprofloxacin HCl [Cipro] 500 mg PO DAILY 30 Days #30 tab 04/29/22 [Rx] bisacodyL [Dulcolax] 5 mg PO DAILY PRN tab 04/29/22 [Rx] hydrOXYzine HCL [Atarax] 25 mg PO QID PRN #45 tab 04/29/22 [Rx] Sennosides-Docusate Sodium [Senokot-S] 1 tab PO HS 05/07/22 [History] ALPRAZolam [Xanax] 0.5 mg PO QID PRN tab 06/03/22 [Rx] Famotidine [Pepcid] 20 mg PO HS tab 06/03/22 [Rx] Lidocaine Viscous 2% [Xylocaine Viscous] 30 ml PO TID ml 06/03/22 [Rx] Mag Hydrox/Al Hydrox/Simeth [Maalox] 30 ml PO TID ml 06/03/22 [Rx] prednisoLONE ACETATE 1% OPHTH [Pred Forte 1%] 1 drops BOTH EYES QID ml 06/03/22 [Rx] Follow up Appointment(s)/Referral(s): Carrington Almanza MD [STAFF PHYSICIAN] - 1-2 Days (Patient instructed to make follow-up appointment with oncologist) Patient Instructions/Handouts: Acute Myeloid Leukemia (DC) Discharge Disposition: HOME SELF-CARE
== END 2022-06-03 17:25 | disposition home or self-care (01) | DRG 839 ==
LOC: 5NMEDONC 08:45
PROVIDERS: ADMIT Internal Medicine Hematology & Oncology; ATTEND Internal Medicine Hematology & Oncology
PROC: 3E043GC Introduction of Other Therapeutic Substance into Central Vein, Percutaneous Approach (ICD-10-PCS; principal; 2022-05-29)
PROC: 3E0 Administration, Physiological Systems and Anatomical Regions, Introduction (ICD-10-PCS; principal; 2022-05-29)
DX: Z51.11 Encounter for antineoplastic chemotherapy (principal); C92.00 Acute myeloblastic leukemia, not having achieved remission; Q90.9 Down syndrome, unspecified; Z80.3 Family history of malignant neoplasm of breast; Z87.01 Personal history of pneumonia (recurrent); Z86.16 Personal history of COVID-19
CPT/HCPCS: 80053; 84550; 85025

== ENCOUNTER 2022-06-10 14:14 | Emergency (ER) | payer OTHER ==
[2022-06-10 17:01] LABS: ALT 61 U/L (4-49); AST 31 U/L (17-59); African American GFR (CKD) >90 (>60 ml/min/1.73 sqM); Albumin 4.5 g/dL (3.5-5.0); Alkaline Phosphatase 64 U/L (38-126); Anion Gap 14 mmol/L; Blood Urea Nitrogen 14 mg/dL (9-20); Calcium 9.3 mg/dL (8.4-10.2); Carbon Dioxide 23 mmol/L (22-30); Chloride 100 mmol/L (98-107); Glucose 86 mg/dL (74-99); Non-African American GFR(CKD) >90 (>60 ml/min/1.73 sqM); Sodium 137 mmol/L (137-145); Total Bilirubin 0.5 mg/dL (0.2-1.3); Total Protein 6.9 g/dL (6.3-8.2)
[2022-06-10 17:17] LABS: Anisocytosis Slight; Basophils % (A) 1 %; Eosinophils % (A) 0 %; HCT 27.9 % (39.0-53.0); HGB 9.7 gm/dL (13.0-17.5); Lymphocytes # (A) 1.4 k/uL (1.0-4.8); Lymphocytes % (A) 88 %; MCHC 34.8 g/dL (31.0-37.0); MCV 86.1 fL (80.0-100.0); Mean Platelet Volume 7.4; Monocytes % (A) 0 %; Neutrophils % (A) 9 %; Poikilocytosis Slight; RBC 3.24 m/uL (4.30-5.90); RDW 17.8 % (11.5-15.5); WBC 1.5 k/uL (3.8-10.6)
[2022-06-10 17:19] LABS: Neutrophils # (A) 0.1 k/uL (1.3-7.7)
[2022-06-10 17:27] LABS: Platelet Count 6 k/uL (150-450)
--- NOTE | 2022-06-10 22:35 | ED ---
General Adult HPI - General Chief complaint: Recheck/Abnormal Lab/Rx Stated complaint: Oral issues Time Seen by Provider: 06/10/22 15:44 Source: patient Mode of arrival: ambulatory Limitations: no limitations - History of Present Illness Initial comments: This 27-year-old male presents with a complaint of some slight bleeding from his right upper gums. He states that this happened several days ago and it was apparently due to low platelets. He was admitted to the hospital and received a platelet transfusion and the bleeding stopped. It reoccurred again today. He denies any injury. He denies any pain to his gums. He does have a history of leukemia and is going through chemotherapy. This is caused a pancytopenia which is been worse with his platelets. His last chemotherapy was last week. He does complain of some mild to moderate fatigue but otherwise feels fine. His been no fever or chills. No other complaints or modifying factors. - Related Data Home Medications Medication Instructions Recorded Confirmed Sennosides-Docusate Sodium 1 tab PO HS 05/07/22 05/29/22 [Senokot-S] Previous Rx's Medication Instructions Recorded ALPRAZolam [Xanax] 0.5 mg PO TID PRN tab 03/27/22 Cholecalciferol [Vitamin D3 (125 250 mcg PO DAILY #30 tab 03/27/22 Mcg = 5000 Iu)] Acetaminophen Tab [Tylenol] 650 mg PO Q6HR PRN tab 04/29/22 Acyclovir [Zovirax] 400 mg PO BID #60 tablet 04/29/22 Ciprofloxacin HCl [Cipro] 500 mg PO DAILY 30 Days #30 tab 04/29/22 bisacodyL [Dulcolax] 5 mg PO DAILY PRN tab 04/29/22 hydrOXYzine HCL [Atarax] 25 mg PO QID PRN #45 tab 04/29/22 ALPRAZolam [Xanax] 0.5 mg PO QID PRN tab 06/03/22 Famotidine [Pepcid] 20 mg PO HS tab 06/03/22 Lidocaine Viscous 2% [Xylocaine 30 ml PO TID ml 06/03/22 Viscous] Mag Hydrox/Al Hydrox/Simeth 30 ml PO TID ml 06/03/22 [Maalox] prednisoLONE ACETATE 1% OPHTH 1 drops BOTH EYES QID ml 06/03/22 [Pred Forte 1%] Allergies Allergy/AdvReac Type Severity Reaction Status Date / Time No Known Allergies Allergy Verified 06/10/22 15:47 Review of Systems ROS Statement: Those systems with pertinent positive or pertinent negative responses have been documented in the HPI. ROS Other: All systems not noted in ROS Statement are negative. Past Medical History Past Medical History: Cancer Additional Past Medical History / Comment(s): Pt recently admitted to [facility] on 05/07/22 with severe pancytopenia with mucous membrane bleeding. Other hx: AML, leukocytosis/thrombocytopenia, pancytopenia, coagulopathy/neuropenic fever, covid/pneumonia, anemia with blood transfusions. History of Any Multi-Drug Resistant Organisms: None Reported Past Surgical History: Adenoidectomy, Tonsillectomy Additional Past Surgical History / Comment(s): BMAs, picc line placed Past Anesthesia/Blood Transfusion Reactions: No Reported Reaction Past Psychological History: Anxiety Smoking Status: Never smoker - Past Family History Mother Family Medical History: Cancer Additional Family Medical History / Comment(s): breast CA Father Family Medical History: No Reported History General Exam - General Exam Comments Initial Comments: GENERAL: The patient is well nourished and well hydrated. VITAL SIGNS: Heart rate, blood pressure, respiratory rate reviewed as recorded in nurse's notes. EYES: Pupils are round and reactive. Extraocular movements are intact. No conjunctival / lid redness or swelling. ENT: No external evidence of injury, swelling, or ecchymosis. Airway is patent. Throat is clear. There is no active bleeding from his gums currently. There are several small areas of skin irritation where there may have been bleeding earlier. NECK: Nontender. No swelling or evidence of injury. No subcutaneous emphysema. Trachea is midline. No thyroid mass. HEART: Regular rate and rhythm. Good peripheral pulses. LUNGS/CHEST: Breath sounds clear and equal bilaterally. No rales, rhonchi, or wheezes. No ecchymosis, subcutaneous emphysema, or tenderness. ABDOMEN: Abdomen soft without tenderness. No palpable masses or organomegaly. No peritoneal signs. No abdominal wall swelling or ecchymosis. EXTREMITIES: No extremity tenderness. Normal muscle tone and function. No thoracolumbar tenderness. NEUROLOGIC: Sensation is grossly intact. Cranial nerve exam reveals face is symmetrical, tongue is midline, speech is clear. SKIN: No abrasions or ecchymosis is noted. No induration or masses noted. PSYCHIATRIC: Alert and oriented. Appropriate behavior and judgment. Limitations: no limitations Course Vital Signs 06/10/22 06/10/22 15:40 19:31 Temperature 98.2 F Pulse Rate 86 78 Respiratory 16 16 Rate Blood Pressure 149/89 143/94 O2 Sat by Pulse 100 100 Oximetry Procedures - [place] Protocol (Time Out) Nurse: Laura Rosas Medical Decision Making - Medical Decision Making The patient was seen and examined. All diagnostics are reviewed. Old records were reviewed just from the last several days. Appears that he had platelets transfused and his platelet count went from 3 up to 15 but then back down to 13. It is 6 today. It is felt as though he would benefit from additional platelet transfusion. He is agreeable. It appears that this takes quite some time to get the platelets. They apparently have come to our facility from a different facility. Patient is agreeable for waiting for this to be done and it is felt as though we could avoid admission at this time and have platelets eventually transfused through the emergency department and discharged. Patient is agreeable with this plan. She'll be getting his platelets in the near future and will be discharged after he receives his platelets. - Lab Data Result diagrams: 06/10/22 16:44 06/10/22 16:44 Lab Results 06/10/22 06/10/22 06/10/22 Range/Units 16:44 16:44 18:20 WBC 1.5 L (3.8-10.6) k/uL RBC 3.24 L (4.30-5.90) m/uL Hgb 9.7 L D (13.0-17.5) gm/dL Hct 27.9 L (39.0-53.0) % MCV 86.1 (80.0-100.0) fL MCH 30.0 (25.0-35.0) pg MCHC 34.8 (31.0-37.0) g/dL RDW 17.8 H (11.5-15.5) % Plt Count 6 L* D (150-450) k/uL MPV 7.4 Neutrophils % 9 % Lymphocytes % 88 % Monocytes % 0 % Eosinophils % 0 % Basophils % 1 % Neutrophils # 0.1 L* (1.3-7.7) k/uL Lymphocytes # 1.4 (1.0-4.8) k/uL Monocytes # 0.0 (0-1.0) k/uL Eosinophils # 0.0 (0-0.7) k/uL Basophils # 0.0 (0-0.2) k/uL Manual Slide Review Performed Poikilocytosis Slight Anisocytosis Slight Sodium 137 (137-145) mmol/L Potassium 4.0 (3.5-5.1) mmol/L Chloride 100 (98-107) mmol/L Carbon Dioxide 23 (22-30) mmol/L Anion Gap 14 mmol/L BUN 14 (9-20) mg/dL Creatinine 0.75 (0.66-1.25) mg/dL Est GFR (CKD-EPI)AfAm >90 (>60 ml/min/1.73 sqM) Est GFR (CKD-EPI)NonAf >90 (>60 ml/min/1.73 sqM) Glucose 86 (74-99) mg/dL Calcium 9.3 (8.4-10.2) mg/dL Total Bilirubin 0.5 (0.2-1.3) mg/dL AST 31 (17-59) U/L ALT 61 H (4-49) U/L Alkaline Phosphatase 64 (38-126) U/L Total Protein 6.9 (6.3-8.2) g/dL Albumin 4.5 (3.5-5.0) g/dL Blood Type AB Negative Blood Type Recheck AB Neg Bld Type Recheck Status No Antibody Screen NEGATIVE Spec Expiration Date 06/13/20222319 Disposition Clinical Impression: Thrombocytopenia, Pancytopenia due to antineoplastic chemotherapy, AML (acute myelogenous leukemia), Bleeding gums Disposition: HOME SELF-CARE Condition: Good Instructions (If sedation given, give patient instructions): Pancytopenia (DC) Is patient prescribed a controlled substance at d/c from ED?: No Referrals: Usama Camejo MD [Primary Care Provider] - 1-2 days Time of Disposition: 23:57
[2022-06-11 03:35] VITALS: BP 125/68; PULSE 78; RESP 17; TEMP 98.7
== END 2022-06-11 03:37 | disposition home or self-care (01) ==
LOC: EC 14:14
DX: C92.00 Acute myeloblastic leukemia, not having achieved remission (principal); D69.6 Thrombocytopenia, unspecified; D61.810 Antineoplastic chemotherapy induced pancytopenia
CPT/HCPCS: 36415; 80053; 85025; 86850; 86900; 86901; 99284

== ENCOUNTER 2022-06-14 08:09 | Inpatient (IN) | payer OTHER ==
[2022-06-14] MEDS ORDERED: VANCOMYCIN IV PER PHARMACY 1 EACH MISC MISCELLANE PRN ×2 (08:11→16:37)
[2022-06-14] MEDS ORDERED: CEFEPIME 2 GM in SODIUM CHLORIDE 0.9% 100 ML IVPB STA (08:11)
[2022-06-14] MEDS ORDERED: VANCOMYCIN 2,000 MG in SODIUM CHLORIDE 0.9% 500 ML 500 ML IVPB ONE (09:00)
[2022-06-14] MEDS ORDERED: IBUPROFEN 600 MG TAB PO STA (09:15)
[2022-06-14 10:11] LABS: Anisocytosis Slight; HCT 22.4 % (39.0-53.0); HGB 8.1 gm/dL (13.0-17.5); Hyperchromasia Slight; MCH 29.8 pg (25.0-35.0); MCHC 36.2 g/dL (31.0-37.0); MCV 82.3 fL (80.0-100.0); Mean Platelet Volume 7.9; Poikilocytosis Slight; RBC 2.72 m/uL (4.30-5.90); RDW 17.3 % (11.5-15.5)
[2022-06-14 10:16] LABS: WBC 0.4 k/uL (3.8-10.6)
[2022-06-14 10:30] LABS: Albumin 4.2 g/dL (3.5-5.0); Magnesium 1.1 mg/dL (1.6-2.3); Potassium 3.4 mmol/L (3.5-5.1); Total Bilirubin 1.1 mg/dL (0.2-1.3); Total Protein 6.7 g/dL (6.3-8.2)
[2022-06-14] MEDS ORDERED: SODIUM CHLORIDE 0.9% 1,000 ML IV ONE ×4 (10:37→14:41)
--- NOTE | 2022-06-14 10:39 | ED ---
Fever HPI - General Chief Complaint: Fever Stated Complaint: Near syncope, chemo treatment, fever Time Seen by Provider: 06/14/22 08:10 Source: patient, RN notes reviewed Mode of arrival: ambulatory Limitations: no limitations - History of Present Illness Initial Comments: This a 27-year-old male presents emergency Department chief complaint of fever. Patient sent in by oncology patient is under current treatment for AML. Patient had chemotherapy at the end of May. Patient recently developed fever, confusion, delusions. Patient states his patient's been more rapid he has no obvious signs of infection denies any significant congestion, sore throat, nausea vomiting diarrhea constipation. Patient did receive platelets over the weekend. Dies any sick contacts. - Related Data Home Medications Medication Instructions Recorded Confirmed Sennosides-Docusate Sodium 1 tab PO HS 05/07/22 05/29/22 [Senokot-S] Previous Rx's Medication Instructions Recorded ALPRAZolam [Xanax] 0.5 mg PO TID PRN tab 03/27/22 Cholecalciferol [Vitamin D3 (125 250 mcg PO DAILY #30 tab 03/27/22 Mcg = 5000 Iu)] Acetaminophen Tab [Tylenol] 650 mg PO Q6HR PRN tab 04/29/22 Acyclovir [Zovirax] 400 mg PO BID #60 tablet 04/29/22 Ciprofloxacin HCl [Cipro] 500 mg PO DAILY 30 Days #30 tab 04/29/22 bisacodyL [Dulcolax] 5 mg PO DAILY PRN tab 04/29/22 hydrOXYzine HCL [Atarax] 25 mg PO QID PRN #45 tab 04/29/22 ALPRAZolam [Xanax] 0.5 mg PO QID PRN tab 06/03/22 Famotidine [Pepcid] 20 mg PO HS tab 06/03/22 Lidocaine Viscous 2% [Xylocaine 30 ml PO TID ml 06/03/22 Viscous] Mag Hydrox/Al Hydrox/Simeth 30 ml PO TID ml 06/03/22 [Maalox] prednisoLONE ACETATE 1% OPHTH 1 drops BOTH EYES QID ml 06/03/22 [Pred Forte 1%] Allergies Allergy/AdvReac Type Severity Reaction Status Date / Time No Known Allergies Allergy Verified 06/14/22 08:40 Review of Systems ROS Statement: Those systems with pertinent positive or pertinent negative responses have been documented in the HPI. ROS Other: All systems not noted in ROS Statement are negative. Past Medical History Past Medical History: Cancer Additional Past Medical History / Comment(s): Pt recently admitted to [facility] on 05/07/22 with severe pancytopenia with mucous membrane bleeding. Other hx: AML, leukocytosis/thrombocytopenia, pancytopenia, coagulopathy/neuropenic fever, covid/pneumonia, anemia with blood transfusions. History of Any Multi-Drug Resistant Organisms: None Reported Past Surgical History: Adenoidectomy, Tonsillectomy Additional Past Surgical History / Comment(s): BMAs, picc line placed Past Anesthesia/Blood Transfusion Reactions: No Reported Reaction Past Psychological History: Anxiety Smoking Status: Never smoker - Past Family History Mother Family Medical History: Cancer Additional Family Medical History / Comment(s): breast CA Father Family Medical History: No Reported History General Exam Limitations: no limitations General appearance: alert, in no apparent distress Head exam: Present: atraumatic, normocephalic, normal inspection Eye exam: Present: normal appearance, PERRL, EOMI. Absent: scleral icterus, conjunctival injection, periorbital swelling ENT exam: Present: normal exam, normal oropharynx, mucous membranes moist Neck exam: Present: normal inspection, full ROM. Absent: tenderness, meningismus, lymphadenopathy Respiratory exam: Present: normal lung sounds bilaterally. Absent: respiratory distress, wheezes, rales, rhonchi, stridor Cardiovascular Exam: Present: normal rhythm, tachycardia, normal heart sounds. Absent: systolic murmur, diastolic murmur, rubs, gallop, clicks GI/Abdominal exam: Present: soft, normal bowel sounds. Absent: distended, tenderness, guarding, rebound, rigid Neurological exam: Present: alert, oriented X3 Skin exam: Present: warm, dry, intact, normal color. Absent: rash Course Vital Signs 06/14/22 06/14/22 08:36 11:40 Temperature 99.9 F H 101 F H Pulse Rate 140 H 150 H Respiratory 22 26 H Rate Blood Pressure 87/39 101/60 O2 Sat by Pulse 100 97 Oximetry Medical Decision Making - Medical Decision Making 27-year-old male presented to the emergency Department for complaints of fever by oncology. No obvious signs of infection there is concern possible PICC line infection patient's was started on broad-spectrum antibiotics with Ceftin, vancomycin patient starting maintenance fluids patient noted by oncology case discussed with some physician Dr. Hoyt - Lab Data Result diagrams: 06/14/22 09:32 06/14/22 09:32 Lab Results 06/14/22 06/14/22 06/14/22 Range/Units 09:32 09:32 09:32 WBC 0.4 L* (3.8-10.6) k/uL RBC 2.72 L (4.30-5.90) m/uL Hgb 8.1 L D (13.0-17.5) gm/dL Hct 22.4 L (39.0-53.0) % MCV 82.3 (80.0-100.0) fL MCH 29.8 (25.0-35.0) pg MCHC 36.2 (31.0-37.0) g/dL RDW 17.3 H (11.5-15.5) % Plt Count 3 L* (150-450) k/uL MPV 7.9 Hyperchromasia Slight Poikilocytosis Slight Anisocytosis Slight Sodium 133 L (137-145) mmol/L Potassium 3.4 L (3.5-5.1) mmol/L Chloride 97 L (98-107) mmol/L Carbon Dioxide 20 L (22-30) mmol/L Anion Gap 16 mmol/L BUN 17 (9-20) mg/dL Creatinine 1.56 H (0.66-1.25) mg/dL Est GFR (CKD-EPI)AfAm 70 (>60 ml/min/1.73 sqM) Est GFR (CKD-EPI)NonAf 60 (>60 ml/min/1.73 sqM) Glucose 114 H (74-99) mg/dL Lactic Ac Sepsis Rflx Plasma Lactic Acid Marcello 3.3 H* (0.7-2.0) mmol/L Calcium 9.0 (8.4-10.2) mg/dL Magnesium 1.1 L (1.6-2.3) mg/dL Total Bilirubin 1.1 (0.2-1.3) mg/dL AST 27 (17-59) U/L ALT 39 (4-49) U/L Alkaline Phosphatase 62 (38-126) U/L C-Reactive Protein 24.0 H (<1.0) mg/dL Total Protein 6.7 (6.3-8.2) g/dL Albumin 4.2 (3.5-5.0) g/dL Influenza Type A (PCR) (Not Detectd) Influenza Type B (PCR) (Not Detectd) RSV (PCR) (Not Detectd) SARS-CoV-2 (PCR) (Not Detectd) 06/14/22 06/14/22 Range/Units 10:25 10:29 WBC (3.8-10.6) k/uL RBC (4.30-5.90) m/uL Hgb (13.0-17.5) gm/dL Hct (39.0-53.0) % MCV (80.0-100.0) fL MCH (25.0-35.0) pg MCHC (31.0-37.0) g/dL RDW (11.5-15.5) % Plt Count (150-450) k/uL MPV Hyperchromasia Poikilocytosis Anisocytosis Sodium (137-145) mmol/L Potassium (3.5-5.1) mmol/L Chloride (98-107) mmol/L Carbon Dioxide (22-30) mmol/L Anion Gap mmol/L BUN (9-20) mg/dL Creatinine (0.66-1.25) mg/dL Est GFR (CKD-EPI)AfAm (>60 ml/min/1.73 sqM) Est GFR (CKD-EPI)NonAf (>60 ml/min/1.73 sqM) Glucose (74-99) mg/dL Lactic Ac Sepsis Rflx Y Plasma Lactic Acid Marcello (0.7-2.0) mmol/L Calcium (8.4-10.2) mg/dL Magnesium (1.6-2.3) mg/dL Total Bilirubin (0.2-1.3) mg/dL AST (17-59) U/L ALT (4-49) U/L Alkaline Phosphatase (38-126) U/L C-Reactive Protein (<1.0) mg/dL Total Protein (6.3-8.2) g/dL Albumin (3.5-5.0) g/dL Influenza Type A (PCR) Not Detected (Not Detectd) Influenza Type B (PCR) Not Detected (Not Detectd) RSV (PCR) Not Detected (Not Detectd) SARS-CoV-2 (PCR) Not Detected (Not Detectd) Critical Care Time Critical Care Time: Yes Total Critical Care Time: 35 Disposition Clinical Impression: AML (acute myelogenous leukemia), Pancytopenia, Neutropenic fever Disposition: ADMITTED IP TO THIS [facility] Condition: Serious Referrals: Usama Camejo MD [Primary Care Provider] - 1-2 days Time of Disposition: 12:29
[2022-06-14] MEDS ORDERED: ACETAMINOPHEN TAB 500 MG TAB PO STA (11:42)
[2022-06-14] MEDS ORDERED: POTASSIUM CHLORIDE ER 20 MEQ TAB.ER PO STA (12:28)
[2022-06-14] MEDS ORDERED: MAGNESIUM OXIDE 400 MG TAB PO STA (12:28)
[2022-06-14] MEDS ORDERED: NALOXONE 0.4 MG/ML 1 ML VIAL IV PRN (12:29)
[2022-06-14] MEDS ORDERED: ACETAMINOPHEN TAB 500 MG TAB PO PRN (12:32)
[2022-06-14] MEDS ORDERED: IBUPROFEN 600 MG TAB PO PRN (12:32)
[2022-06-14 12:54] LABS: Appearance,Urine Cloudy (Clear); Bilirubin,Urine Negative (Negative); Blood,Urine Small (Negative); Color,Urine Yellow; Glucose,Urine (UA) Trace (Negative); Granular Casts,Urine 4 /lpf (0); Hyaline Casts,Urine 4 /lpf (0-2); Ketones,Urine 1+ (Negative); Leukocyte Esterase,Urine Negative (Negative); Mucus,Urine Few /hpf; Nitrite,Urine Negative (Negative); PH, Urine 5.5 (5.0-8.0); Protein,Urine 2+ (Negative); RBC,Urine 6 /hpf (0-5); Specific Gravity,Urine 1.028 (1.001-1.035); Squamous Epithelial Cell,Urine 1 /hpf (0-4); Urobilinogen,Urine <2.0 mg/dL (<2.0); WBC,Urine 9 /hpf (0-5)
[2022-06-14] MEDS: SODIUM CHLORIDE 0.9% 1,000 ML IV SCH ×3 (13:33→17:30)
[2022-06-14 14:03] LABS: Platelet Count 3 k/uL (150-450)
[2022-06-14] MEDS ORDERED: SODIUM CHLORIDE 0.9% 2,000 ML IV ONE (14:38)
[2022-06-14] MEDS ORDERED: RX INFO: IV CONTRAST WAS GIVEN 1 EACH MISC MISCELLANE PRN (14:40)
[2022-06-14] MEDS ORDERED: HYDROcodone/APAP 5-325MG 1 EACH TAB PO PRN (14:40)
[2022-06-14 15:27] LABS: MCV 85.4 fL (80.0-100.0); RBC 2.18 m/uL (4.30-5.90)
[2022-06-14 15:28] LABS: Anisocytosis Slight; MCH 29.2 pg (25.0-35.0); MCHC 34.2 g/dL (31.0-37.0); Mean Platelet Volume 7.6; Poikilocytosis Slight; RDW 16.9 % (11.5-15.5)
[2022-06-14 16:12] LABS: HGB 6.4 gm/dL (13.0-17.5); WBC 0.1 k/uL (3.8-10.6)
[2022-06-14 16:13] LABS: HCT 18.6 % (39.0-53.0)
--- NOTE | 2022-06-14 16:27 | P.CONS ---
History of Present Illness - Reason for Consult Consult date: 06/14/22 Neutropenic Fever Requesting physician: Hayden Sheldon - History of Present Illness Ben is a very pleasant young man who was seen at the end of February when he presented with constitutional symptoms, leukocytosis and thrombocytopenia, peripheral blasts. Bone marrow 02/25/22 revealed AML 80-90% blasts, trisomy 21, NGS negative for any other genomic alterations. He had induction chemotherapy 7 +3 regimen. He had Covid infection during that hospitalization. Repeat bone marrow 03/30/22 revealed a complete response. He did have his first consolidation chemotherapy 04/19 and has been being followed up outpatient with CBCs and transfusions when necessary. Status post second consolidation and now presents with fevers, hypotension and a picture of sepsis, Blood cultures pending and chest xray and urine. Vanco and cefepime started after cultures and ID following Platelets are 3K and irradiated Platelets ordered Review of Systems All systems: negative Constitutional: Reports as per HPI Past Medical History Past Medical History: Cancer Additional Past Medical History / Comment(s): Pt recently admitted to [facility] on 05/07/22 with severe pancytopenia with mucous membrane bleeding. Other hx: AML, leukocytosis/thrombocytopenia, pancytopenia, coagulopathy/neuropenic fever, covid/pneumonia, anemia with blood transfusions. History of Any Multi-Drug Resistant Organisms: None Reported Past Surgical History: Adenoidectomy, Tonsillectomy Additional Past Surgical History / Comment(s): BMAs, picc line placed Past Anesthesia/Blood Transfusion Reactions: No Reported Reaction Past Psychological History: Anxiety Smoking Status: Never smoker - Past Family History Mother Family Medical History: Cancer Additional Family Medical History / Comment(s): breast CA Father Family Medical History: No Reported History Medications and Allergies Home Medications Medication Instructions Recorded Confirmed Type ALPRAZolam [Xanax] 0.5 mg PO TID PRN tab 03/27/22 06/14/22 Rx Cholecalciferol [Vitamin D3 (125 250 mcg PO DAILY #30 tab 03/27/22 06/14/22 Rx Mcg = 5000 Iu)] Acetaminophen Tab [Tylenol] 650 mg PO Q6HR PRN tab 04/29/22 06/14/22 Rx Acyclovir [Zovirax] 400 mg PO BID #60 tablet 04/29/22 06/14/22 Rx Ciprofloxacin HCl [Cipro] 500 mg PO DAILY 30 Days #30 tab 04/29/22 06/14/22 Rx bisacodyL [Dulcolax] 5 mg PO DAILY PRN tab 04/29/22 06/14/22 Rx hydrOXYzine HCL [Atarax] 25 mg PO QID PRN #45 tab 04/29/22 06/14/22 Rx Sennosides-Docusate Sodium 1 tab PO HS 05/07/22 06/14/22 History [Senokot-S] Famotidine [Pepcid] 20 mg PO HS tab 06/03/22 06/14/22 Rx Lidocaine Viscous 2% [Xylocaine 30 ml PO TID ml 06/03/22 06/14/22 Rx Viscous] Mag Hydrox/Al Hydrox/Simeth 30 ml PO TID ml 06/03/22 06/14/22 Rx [Maalox] prednisoLONE ACETATE 1% OPHTH 1 drops BOTH EYES QID ml 06/03/22 06/14/22 Rx [Pred Forte 1%] Allergies Allergy/AdvReac Type Severity Reaction Status Date / Time No Known Allergies Allergy Verified 06/14/22 12:46 Physical Exam Vitals: Vital Signs Temp Pulse Resp BP Pulse Ox 06/14/22 11:40 101 F H 150 H 26 H 101/60 97 06/14/22 08:36 99.9 F H 140 H 22 87/39 100 Intake and Output 06/13/22 06/14/22 06/14/22 22:59 06:59 14:59 Other: Weight 122.47 kg Increased respirations Flushed HR Tachy Abdomen Soft NONDIST No rash Results CBC & Chem 7: 06/14/22 14:58 06/14/22 09:32 Labs: Abnormal Lab Results - Last 24 Hours (Table) 06/14/22 06/14/22 06/14/22 Range/Units 09:32 09:32 09:32 WBC 0.4 L* (3.8-10.6) k/uL RBC 2.72 L (4.30-5.90) m/uL Hgb 8.1 L D (13.0-17.5) gm/dL Hct 22.4 L (39.0-53.0) % RDW 17.3 H (11.5-15.5) % Plt Count 3 L* (150-450) k/uL Sodium 133 L (137-145) mmol/L Potassium 3.4 L (3.5-5.1) mmol/L Chloride 97 L (98-107) mmol/L Carbon Dioxide 20 L (22-30) mmol/L Creatinine 1.56 H (0.66-1.25) mg/dL Glucose 114 H (74-99) mg/dL Plasma Lactic Acid Marcello 3.3 H* (0.7-2.0) mmol/L Magnesium 1.1 L (1.6-2.3) mg/dL C-Reactive Protein 24.0 H (<1.0) mg/dL Urine Protein (Negative) Urine Glucose (UA) (Negative) Urine Ketones (Negative) Urine Blood (Negative) Urine RBC (0-5) /hpf Urine WBC (0-5) /hpf Hyaline Casts (0-2) /lpf Urine Mucus (None) /hpf 06/14/22 Range/Units 12:15 WBC (3.8-10.6) k/uL RBC (4.30-5.90) m/uL Hgb (13.0-17.5) gm/dL Hct (39.0-53.0) % RDW (11.5-15.5) % Plt Count (150-450) k/uL Sodium (137-145) mmol/L Potassium (3.5-5.1) mmol/L Chloride (98-107) mmol/L Carbon Dioxide (22-30) mmol/L Creatinine (0.66-1.25) mg/dL Glucose (74-99) mg/dL Plasma Lactic Acid Marcello (0.7-2.0) mmol/L Magnesium (1.6-2.3) mg/dL C-Reactive Protein (<1.0) mg/dL Urine Protein 2+ H (Negative) Urine Glucose (UA) Trace H (Negative) Urine Ketones 1+ H (Negative) Urine Blood Small H (Negative) Urine RBC 6 H (0-5) /hpf Urine WBC 9 H (0-5) /hpf Hyaline Casts 4 H (0-2) /lpf Urine Mucus Few H (None) /hpf Assessment and Plan (1) Neutropenic fever Narrative/Plan: Doming[place] Culture Aggressive supportive care Discussed with primary team Transfuse irradiated only platelets <15 and PRBC <7 Current Visit: Yes Status: Acute Priority: High Code(s): D70.9 - NEUTROPENIA, UNSPECIFIED; R50.81 - FEVER PRESENTING WITH CONDITIONS CLASSIFIED ELSEWHERE SNOMED Code(s): 886861282 (2) Pancytopenia Current Visit: Yes Status: Acute Code(s): D61.818 - OTHER PANCYTOPENIA SNOMED Code(s): 359381620 (3) AML (acute myelogenous leukemia) Current Visit: Yes Status: Chronic Priority: High Code(s): C92.00 - ACUTE MYELOBLASTIC LEUKEMIA, NOT HAVING ACHIEVED REMISSION SNOMED Code(s): 74534511 Plan: Dr. Waller: I have completed the full history and physial and developed the above impression and plan, agree with dictation, dictated as a scribe
--- NOTE | 2022-06-14 17:02 | P.HPIM ---
History of Present Illness H&P Date: 06/14/22 Chief Complaint: Fevers, low blood count 27-year-old man with a medical history of AML currently undergoing consolidation therapy, recurrent neutropenic fever presented with fevers, low blood count. Patient says that starting yesterday he started to develop increasing fevers, episodes of confusion, chills, lethargy. He and his mother and father presented to the emergency room at the request of his oncologist due to suspicion of neutropenic fevers and sepsis. Patient reports some heaviness with breathing, right-sided chest pain, fevers, chills, sweats, dizziness. He denies nausea, vomiting, palpitations, syncope, cough, abdominal pain, constipation, diarrhea, dysuria, dyschezia, and the/weakness of extremities. In the emergency room, patient was noted to be febrile to a T-max of 101, blood pressures were low at 87/39 and heart rates were high at 150, 97% on room air. Initial CBC demonstrated a white blood cell count 0.4, platelet count of 3, hemoglobin of 8.1. He also had a sodium of 133, chloride of 97, potassium 3.4, bicarb of 20, anion gap to 16, elevated creatinine to 1.56. His liver function tests were unremarkable. His lactic acid was 3.3. His pro calcitonin is 38.4. CRP was 24. UA showed 2+ protein, 1+ ketones, trace glucose, 6 red blood cells, 9 white blood cells, 4 hyaline casts. Influenza A/B, RSV, Covid were all negative. Patient had a 2 view chest x-ray which was pending read. Patient was treated with 2 L of IV fluid bolus, vancomycin, cefepime, then admitted to the cardiac stepdown unit for further management. Orders were placed for a unit of platelets. While being monitored on the cardiac stepdown unit, he was noted to be again hypotensive with increasing heart rates, 85/40, heart rate 128. Patient was up slightly bolused an additional 2 L of fluid, however, his blood pressure did not respond. Repeat CBC done prior to delivery of platelets showed a white blood cell count 0.1, hemoglobin of 6.7, platelets of 3. At this point a unit of packed red blood cells were ordered as well. The case was discussed with infectious disease, oncology, intensive carepatient was subsequently transferred to the ICU for likely pressor requirement. His PICC line was removed due to suspicion of PICC line infection, and the catheter tip was sent for culture as discussed with infectious disease and oncology. All Systems reviewed and pertinent positives and negatives noted in HPI, all other symptoms are negative Gen: in no apparent distress, resting comfortably in bed Eyes: PERRL, no scleral injection or icterus HENT: normocephalic, atraumatic, good hearing acuity, moist mucous membranes Neck: no tracheal deviation, full range of motion Resp: good air exchange, breathing comfortably with no accessory muscle use, no tactile fremitus CVS: good distal perfusion x 4, no pitting edema GI: soft, NTTP, ND, no hepatosplenomegaly : no suprapubic tenderness, no CVAT, watkins catheter not present MSK: no clubbing, no cyanosis, no noted contractures of extremities Skin: no noted rashes, petechiae; temperature of skin is appropriate Neuro: moving all extremities without signs of weakness, CN II-XII intact Psych: cooperative, euthymic mood, insight and judgment intact Labs and imaging reviewed as above Assessment/plan: Septic shock Acute kidney injury -Transfer to ICU, telemetry -Appreciate ICU, infectious disease consultation -IV fluids -Levophed for MAP > 55 -Repeat labs: CBC tonight after transfusions, basic metabolic panel tomorrow morning -Follow blood cultures -Vancomycin, cefepime -Ordered: 1, 3, beta D glucan, galactomannan, repeat lactic acid -Patient may also benefit from G-CSF if septic shock worsens AML Pancytopenia -Hematology consult to follow -Transfuse for platelets less than 20 with fevers, or less than 10 -Transfuse for hemoglobin less than 7 -Patient will always require irradiated product Patient is full code DVT prophylaxis is on hold given low hemoglobin and low platelets I spent 70 minutes of critical care time with this patient, not including procedures Past Medical History Past Medical History: Cancer Additional Past Medical History / Comment(s): Pt recently admitted to [facility] on 05/07/22 with severe pancytopenia with mucous membrane bleeding. Other hx: AML, leukocytosis/thrombocytopenia, pancytopenia, coagulopathy/neuropenic fever, covid/pneumonia, anemia with blood transfusions. History of Any Multi-Drug Resistant Organisms: None Reported Past Surgical History: Adenoidectomy, Tonsillectomy Additional Past Surgical History / Comment(s): BMAs, picc line placed Past Anesthesia/Blood Transfusion Reactions: No Reported Reaction Past Psychological History: Anxiety Smoking Status: Never smoker - Past Family History Mother Family Medical History: Cancer Additional Family Medical History / Comment(s): breast CA Father Family Medical History: No Reported History Medications and Allergies Home Medications Medication Instructions Recorded Confirmed Type ALPRAZolam [Xanax] 0.5 mg PO TID PRN tab 03/27/22 06/14/22 Rx Cholecalciferol [Vitamin D3 (125 250 mcg PO DAILY #30 tab 03/27/22 06/14/22 Rx Mcg = 5000 Iu)] Acetaminophen Tab [Tylenol] 650 mg PO Q6HR PRN tab 04/29/22 06/14/22 Rx Acyclovir [Zovirax] 400 mg PO BID #60 tablet 04/29/22 06/14/22 Rx Ciprofloxacin HCl [Cipro] 500 mg PO DAILY 30 Days #30 tab 04/29/22 06/14/22 Rx bisacodyL [Dulcolax] 5 mg PO DAILY PRN tab 04/29/22 06/14/22 Rx hydrOXYzine HCL [Atarax] 25 mg PO QID PRN #45 tab 04/29/22 06/14/22 Rx Sennosides-Docusate Sodium 1 tab PO HS 05/07/22 06/14/22 History [Senokot-S] Famotidine [Pepcid] 20 mg PO HS tab 06/03/22 06/14/22 Rx Lidocaine Viscous 2% [Xylocaine 30 ml PO TID ml 06/03/22 06/14/22 Rx Viscous] Mag Hydrox/Al Hydrox/Simeth 30 ml PO TID ml 06/03/22 06/14/22 Rx [Maalox] prednisoLONE ACETATE 1% OPHTH 1 drops BOTH EYES QID ml 06/03/22 06/14/22 Rx [Pred Forte 1%] Allergies Allergy/AdvReac Type Severity Reaction Status Date / Time No Known Allergies Allergy Verified 06/14/22 12:46 Physical Exam Osteopathic Statement: *. No significant issues noted on an osteopathic structural exam other than those noted in the History and Physical/Consult. Vitals: Vital Signs Temp Pulse Pulse Resp BP BP BP 06/14/22 16:00 98.3 F 124 H 18 78/46 91/42 06/14/22 15:17 128 H 17 105/66 06/14/22 14:30 98.7 F 128 H 19 85/41 06/14/22 14:20 128 H 19 85/41 06/14/22 14:00 122 H 18 06/14/22 13:29 99.5 F 128 H 15 101/47 06/14/22 11:40 101 F H 150 H 26 H 101/60 06/14/22 08:36 99.9 F H 140 H 22 87/39 Pulse Ox 06/14/22 16:00 100 06/14/22 15:17 100 06/14/22 14:30 98 06/14/22 14:20 98 06/14/22 14:00 06/14/22 13:29 100 06/14/22 11:40 97 06/14/22 08:36 100 Intake and Output 06/14/22 06/14/22 06/14/22 06:59 14:59 22:59 Other: # Bowel Movements 1 Weight 122.47 kg Results CBC & Chem 7: 06/14/22 14:58 06/14/22 09:32 Labs: Abnormal Lab Results - Last 24 Hours (Table) 06/14/22 06/14/22 06/14/22 Range/Units 09:32 09:32 09:32 WBC 0.4 L* (3.8-10.6) k/uL RBC 2.72 L (4.30-5.90) m/uL Hgb 8.1 L D (13.0-17.5) gm/dL Hct 22.4 L (39.0-53.0) % RDW 17.3 H (11.5-15.5) % Plt Count 3 L* (150-450) k/uL Sodium 133 L (137-145) mmol/L Potassium 3.4 L (3.5-5.1) mmol/L Chloride 97 L (98-107) mmol/L Carbon Dioxide 20 L (22-30) mmol/L Creatinine 1.56 H (0.66-1.25) mg/dL Glucose 114 H (74-99) mg/dL Plasma Lactic Acid Marcello 3.3 H* (0.7-2.0) mmol/L Magnesium 1.1 L (1.6-2.3) mg/dL C-Reactive Protein 24.0 H (<1.0) mg/dL Procalcitonin (0.02-0.09) ng/mL Urine Protein (Negative) Urine Glucose (UA) (Negative) Urine Ketones (Negative) Urine Blood (Negative) Urine RBC (0-5) /hpf Urine WBC (0-5) /hpf Hyaline Casts (0-2) /lpf Urine Mucus (None) /hpf Crossmatch 06/14/22 06/14/22 06/14/22 Range/Units 09:32 11:35 12:15 WBC (3.8-10.6) k/uL RBC (4.30-5.90) m/uL Hgb (13.0-17.5) gm/dL Hct (39.0-53.0) % RDW (11.5-15.5) % Plt Count (150-450) k/uL Sodium (137-145) mmol/L Potassium (3.5-5.1) mmol/L Chloride (98-107) mmol/L Carbon Dioxide (22-30) mmol/L Creatinine (0.66-1.25) mg/dL Glucose (74-99) mg/dL Plasma Lactic Acid Marcello (0.7-2.0) mmol/L Magnesium (1.6-2.3) mg/dL C-Reactive Protein (<1.0) mg/dL Procalcitonin 38.40 H (0.02-0.09) ng/mL Urine Protein 2+ H (Negative) Urine Glucose (UA) Trace H (Negative) Urine Ketones 1+ H (Negative) Urine Blood Small H (Negative) Urine RBC 6 H (0-5) /hpf Urine WBC 9 H (0-5) /hpf Hyaline Casts 4 H (0-2) /lpf Urine Mucus Few H (None) /hpf Crossmatch See Detail 06/14/22 06/14/22 Range/Units 12:59 14:58 WBC 0.1 L* (3.8-10.6) k/uL RBC 2.18 L (4.30-5.90) m/uL Hgb 6.4 L* D (13.0-17.5) gm/dL Hct 18.6 L* (39.0-53.0) % RDW 16.9 H (11.5-15.5) % Plt Count 3 L* (150-450) k/uL Sodium (137-145) mmol/L Potassium (3.5-5.1) mmol/L Chloride (98-107) mmol/L Carbon Dioxide (22-30) mmol/L Creatinine (0.66-1.25) mg/dL Glucose (74-99) mg/dL Plasma Lactic Acid Marcello 3.9 H* (0.7-2.0) mmol/L Magnesium (1.6-2.3) mg/dL C-Reactive Protein (<1.0) mg/dL Procalcitonin (0.02-0.09) ng/mL Urine Protein (Negative) Urine Glucose (UA) (Negative) Urine Ketones (Negative) Urine Blood (Negative) Urine RBC (0-5) /hpf Urine WBC (0-5) /hpf Hyaline Casts (0-2) /lpf Urine Mucus (None) /hpf Crossmatch Thrombosis Risk Factor Assmnt - Choose All That Apply Any of the Below Risk Factors Present?: Yes Each Factor Represents 1 point: Obesity (BMI >25) Other Risk Factors: No Other congenital or acquired thrombophilia - If yes, enter type in comment: No Thrombosis Risk Factor Assessment Total Risk Factor Score: 1 Thrombosis Risk Factor Assessment Level: Low Risk
[2022-06-14 17:41] LABS: Ovalocytes Present
[2022-06-14 17:42] LABS: Platelet Count 3 k/uL (150-450)
[2022-06-14] MEDS ORDERED: VANCOMYCIN 2,000 MG in SODIUM CHLORIDE 0.9% 500 ML 500 ML IVPB SCH (18:00)
[2022-06-14 18:28] LABS: Glucose,Whole Blood 118 mg/dL (70-110)
[2022-06-14] MEDS: CEFEPIME 2 GM in SODIUM CHLORIDE 0.9% 100 ML IVPB SCH (18:46)
[2022-06-14 18:50] LABS: Appearance,Urine Cloudy (Clear); Bilirubin,Urine Negative (Negative); Blood,Urine Negative (Negative); Color,Urine Yellow; Glucose,Urine (UA) Negative (Negative); Ketones,Urine Trace (Negative); Leukocyte Esterase,Urine Negative (Negative); Mucus,Urine Rare /hpf; Nitrite,Urine Negative (Negative); PH, Urine 5.5 (5.0-8.0); Protein,Urine 1+ (Negative); RBC,Urine 2 /hpf (0-5); Specific Gravity,Urine 1.037 (1.001-1.035); Squamous Epithelial Cell,Urine <1 /hpf (0-4); Urobilinogen,Urine <2.0 mg/dL (<2.0); WBC,Urine 4 /hpf (0-5)
[2022-06-14] MEDS: prednisoLONE ACETATE 1% OPHTH DROPS 5 ML BTL BOTH EYES SCH ×2 (19:02→22:04)
[2022-06-14 19:58] LABS: Anisocytosis Slight; HCT 20.7 % (39.0-53.0); HGB 7.2 gm/dL (13.0-17.5); MCH 29.9 pg (25.0-35.0); MCHC 34.8 g/dL (31.0-37.0); MCV 85.9 fL (80.0-100.0); Mean Platelet Volume 8.4; Poikilocytosis Slight; RBC 2.41 m/uL (4.30-5.90); RDW 17.4 % (11.5-15.5)
[2022-06-14] MEDS: ALPRAZolam 0.5 MG TAB PO PRN (20:27)
[2022-06-14 20:37] LABS: WBC 0.1 k/uL (3.8-10.6)
[2022-06-14 21:20] LABS: Ovalocytes Present; Platelet Count 3 k/uL (150-450)
[2022-06-14] MEDS: ACYCLOVIR 200 MG CAP PO SCH (21:48)
[2022-06-14] MEDS: VANCOMYCIN 2,000 MG in SODIUM CHLORIDE 0.9% 500 ML 500 ML IVPB SCH (21:48)
[2022-06-14] MEDS: FAMOTIDINE 20 MG TAB PO SCH (21:48)
--- NOTE | 2022-06-14 22:40 | P.CONS ---
History of Present Illness - Reason for Consult Consult date: 06/14/22 Neutropenic fever Requesting physician: Chadd Hoyt - Chief Complaint Fever 1 day - History of Present Illness Patient is a 27-year-old male with a past medical history significant for acute myeloid leukemia patient did have a history of previous admission to this facility treated for febrile neutropenia patient now presenting back to the hospital this morning concerning for fever that apparently started the day before presentation to the hospital patient was complaining of fever with rigors and chills patient did have mild headache but no other URI symptoms, the patient denies having any chest pain he did have some shortness of breath and a cough w hich is mostly dry in nature not bring up any sputum, patient denies having any abdominal pain no diarrhea no urinary symptoms patient did have a PICC line right upper extremity which has been there for couple of months now last chemotherapy has been about 2 weeks ago patient on presentation the hospital did have a fever of 101 F, patient is tachycardic mild hypoxic with need for supplemental oxygen patient did have white count of 0.4 platelet count is 3 lactic acid is 4.9 creatinine is 1.6 blood cultures elevated urine is relatively negative influenza [place] PCR was negative blood cultures obtained which are currently pending patient did have a chest x-ray and CT angiogram with report currently pending patient was empirically started on cefepime and vancomycin infectious disease was consulted for further management of antibiotic therapy Review of Systems Positive point has been mentioned in the HPI rest of the systems are negative Past Medical History Past Medical History: Cancer Additional Past Medical History / Comment(s): Pt recently admitted to [facility] on 05/07/22 with severe pancytopenia with mucous membrane bleeding. Other hx: AML, leukocytosis/thrombocytopenia, pancytopenia, coagulopathy/neuropenic fever, covid/pneumonia, anemia with blood transfusions. History of Any Multi-Drug Resistant Organisms: None Reported Past Surgical History: Adenoidectomy, Tonsillectomy Additional Past Surgical History / Comment(s): BMAs, picc line placed Past Anesthesia/Blood Transfusion Reactions: No Reported Reaction Past Psychological History: Anxiety Smoking Status: Never smoker - Past Family History Mother Family Medical History: Cancer Additional Family Medical History / Comment(s): breast CA Father Family Medical History: No Reported History Medications and Allergies Home Medications Medication Instructions Recorded Confirmed Type ALPRAZolam [Xanax] 0.5 mg PO TID PRN tab 03/27/22 06/14/22 Rx Cholecalciferol [Vitamin D3 (125 250 mcg PO DAILY #30 tab 03/27/22 06/14/22 Rx Mcg = 5000 Iu)] Acetaminophen Tab [Tylenol] 650 mg PO Q6HR PRN tab 04/29/22 06/14/22 Rx Acyclovir [Zovirax] 400 mg PO BID #60 tablet 04/29/22 06/14/22 Rx Ciprofloxacin HCl [Cipro] 500 mg PO DAILY 30 Days #30 tab 04/29/22 06/14/22 Rx bisacodyL [Dulcolax] 5 mg PO DAILY PRN tab 04/29/22 06/14/22 Rx hydrOXYzine HCL [Atarax] 25 mg PO QID PRN #45 tab 04/29/22 06/14/22 Rx Sennosides-Docusate Sodium 1 tab PO HS 05/07/22 06/14/22 History [Senokot-S] Famotidine [Pepcid] 20 mg PO HS tab 06/03/22 06/14/22 Rx Lidocaine Viscous 2% [Xylocaine 30 ml PO TID ml 06/03/22 06/14/22 Rx Viscous] Mag Hydrox/Al Hydrox/Simeth 30 ml PO TID ml 06/03/22 06/14/22 Rx [Maalox] prednisoLONE ACETATE 1% OPHTH 1 drops BOTH EYES QID ml 06/03/22 06/14/22 Rx [Pred Forte 1%] Allergies Allergy/AdvReac Type Severity Reaction Status Date / Time No Known Allergies Allergy Verified 06/14/22 12:46 Physical Exam Vitals: Vital Signs Temp Pulse Pulse Resp BP BP BP 06/14/22 22:30 99.3 F 137 H 32 H 114/56 06/14/22 20:15 98.1 F 137 H 34 H 111/69 06/14/22 20:10 133 H 37 H 115/52 06/14/22 20:00 137 H 42 H 99/69 06/14/22 19:45 135 H 27 H 109/80 06/14/22 19:30 137 H 32 H 88/34 06/14/22 19:15 137 H 40 H 105/72 06/14/22 19:00 137 H 38 H 98/59 06/14/22 18:57 98.2 F 133 H 34 H 98/59 06/14/22 18:45 135 H 38 H 86/52 06/14/22 18:37 98.2 F 137 H 37 H 86/52 06/14/22 18:30 138 H 33 H 106/44 06/14/22 18:15 140 H 41 H 06/14/22 18:07 98.1 F 138 H 35 H 115/60 06/14/22 18:00 135 H 36 H 94/43 06/14/22 17:57 98.6 F 135 H 33 H 94/43 06/14/22 17:55 134 H 122 H 18 06/14/22 17:15 98.5 F 129 H 19 102/62 06/14/22 16:00 98.3 F 124 H 18 78/46 91/42 06/14/22 15:17 128 H 17 105/66 06/14/22 14:30 98.7 F 128 H 19 85/41 06/14/22 14:20 128 H 19 85/41 06/14/22 14:00 122 H 18 06/14/22 13:29 99.5 F 128 H 15 101/47 06/14/22 11:40 101 F H 150 H 26 H 101/60 06/14/22 08:36 99.9 F H 140 H 22 87/39 Pulse Ox 06/14/22 22:30 93 L 06/14/22 20:15 100 06/14/22 20:10 100 06/14/22 20:00 90 L 06/14/22 19:45 06/14/22 19:30 06/14/22 19:15 100 06/14/22 19:00 100 06/14/22 18:57 100 06/14/22 18:45 98 06/14/22 18:37 100 06/14/22 18:30 100 06/14/22 18:15 90 L 06/14/22 18:07 100 06/14/22 18:00 100 06/14/22 17:57 100 06/14/22 17:55 100 06/14/22 17:15 100 06/14/22 16:00 100 06/14/22 15:17 100 06/14/22 14:30 98 06/14/22 14:20 98 06/14/22 14:00 06/14/22 13:29 100 06/14/22 11:40 97 06/14/22 08:36 100 Intake and Output 06/14/22 06/14/22 06/14/22 06:59 14:59 22:59 Intake Total 410 Output Total 300 Balance 110 Intake: IV 100 Sodium Chloride 0.9% 1, 100 000 ml @ 100 mls/hr IV . Q10H [facility] Rx#:[id number] Blood Product 310 Platelet Pheresis Pas 0 Psoralen Unit [id number] Rc Irr As1 Unit 310 [id number] Output: Urine 300 Other: Voiding Method Indwelling Catheter # Bowel Movements 1 Weight 122.47 kg GENERAL DESCRIPTION: Young male lying in bed, no distress. No tachypnea or accessory muscle of respiration use. HEENT: Shows Pallor , no scleral icterus. Oral mucous membrane is dry. No phary ngeal erythema or thrush NECK: Trachea central, no thyromegaly. LUNGS: Unlabored breathing. Decreased breath sounds at the base. HEART: S1, S2, regular rate and rhythm. No loud murmur ABDOMEN: Soft, no tenderness , guarding or rigidity, no organomegaly EXTREMITIES: No edema of feet. SKIN: No rash, no masses palpable. NEUROLOGICAL: The patient is awake, alert, oriented x3, mood and affect normal. Results CBC & Chem 7: 06/16/22 02:43 06/16/22 02:43 Labs: Abnormal Lab Results - Last 24 Hours (Table) 06/14/22 06/14/22 06/14/22 Range/Units 09:32 09:32 09:32 WBC 0.4 L* (3.8-10.6) k/uL RBC 2.72 L (4.30-5.90) m/uL Hgb 8.1 L D (13.0-17.5) gm/dL Hct 22.4 L (39.0-53.0) % RDW 17.3 H (11.5-15.5) % Plt Count 3 L* (150-450) k/uL Neutrophils # (1.3-7.7) k/uL Lymphocytes # (1.0-4.8) k/uL Sodium 133 L (137-145) mmol/L Potassium 3.4 L (3.5-5.1) mmol/L Chloride 97 L (98-107) mmol/L Carbon Dioxide 20 L (22-30) mmol/L Creatinine 1.56 H (0.66-1.25) mg/dL Glucose 114 H (74-99) mg/dL POC Glucose (mg/dL) (70-110) mg/dL Plasma Lactic Acid Marcello 3.3 H* (0.7-2.0) mmol/L Magnesium 1.1 L (1.6-2.3) mg/dL C-Reactive Protein 24.0 H (<1.0) mg/dL Procalcitonin (0.02-0.09) ng/mL Ur Specific [place] (1.001-1.035) Urine Protein (Negative) Urine Glucose (UA) (Negative) Urine Ketones (Negative) Urine Blood (Negative) Urine RBC (0-5) /hpf Urine WBC (0-5) /hpf Hyaline Casts (0-2) /lpf Urine Mucus (None) /hpf Crossmatch 06/14/22 06/14/22 06/14/22 Range/Units 09:32 11:35 12:15 WBC (3.8-10.6) k/uL RBC (4.30-5.90) m/uL Hgb (13.0-17.5) gm/dL Hct (39.0-53.0) % RDW (11.5-15.5) % Plt Count (150-450) k/uL Neutrophils # (1.3-7.7) k/uL Lymphocytes # (1.0-4.8) k/uL Sodium (137-145) mmol/L Potassium (3.5-5.1) mmol/L Chloride (98-107) mmol/L Carbon Dioxide (22-30) mmol/L Creatinine (0.66-1.25) mg/dL Glucose (74-99) mg/dL POC Glucose (mg/dL) (70-110) mg/dL Plasma Lactic Acid Marcello (0.7-2.0) mmol/L Magnesium (1.6-2.3) mg/dL C-Reactive Protein (<1.0) mg/dL Procalcitonin 38.40 H (0.02-0.09) ng/mL Ur Specific [place] (1.001-1.035) Urine Protein 2+ H (Negative) Urine Glucose (UA) Trace H (Negative) Urine Ketones 1+ H (Negative) Urine Blood Small H (Negative) Urine RBC 6 H (0-5) /hpf Urine WBC 9 H (0-5) /hpf Hyaline Casts 4 H (0-2) /lpf Urine Mucus Few H (None) /hpf Crossmatch See Detail 06/14/22 06/14/22 06/14/22 Range/Units 12:59 14:58 16:09 WBC 0.1 L* (3.8-10.6) k/uL RBC 2.18 L (4.30-5.90) m/uL Hgb 6.4 L* D (13.0-17.5) gm/dL Hct 18.6 L* (39.0-53.0) % RDW 16.9 H (11.5-15.5) % Plt Count 3 L* (150-450) k/uL Neutrophils # 0.0 L* (1.3-7.7) k/uL Lymphocytes # 0.1 L (1.0-4.8) k/uL Sodium (137-145) mmol/L Potassium (3.5-5.1) mmol/L Chloride (98-107) mmol/L Carbon Dioxide (22-30) mmol/L Creatinine (0.66-1.25) mg/dL Glucose (74-99) mg/dL POC Glucose (mg/dL) (70-110) mg/dL Plasma Lactic Acid Marcello 3.9 H* 4.9 H* (0.7-2.0) mmol/L Magnesium (1.6-2.3) mg/dL C-Reactive Protein (<1.0) mg/dL Procalcitonin (0.02-0.09) ng/mL Ur Specific [place] (1.001-1.035) Urine Protein (Negative) Urine Glucose (UA) (Negative) Urine Ketones (Negative) Urine Blood (Negative) Urine RBC (0-5) /hpf Urine WBC (0-5) /hpf Hyaline Casts (0-2) /lpf Urine Mucus (None) /hpf Crossmatch 06/14/22 06/14/22 06/14/22 Range/Units 18:26 19:37 19:37 WBC 0.1 L* (3.8-10.6) k/uL RBC 2.41 L (4.30-5.90) m/uL Hgb 7.2 L (13.0-17.5) gm/dL Hct 20.7 L (39.0-53.0) % RDW 17.4 H (11.5-15.5) % Plt Count 3 L* (150-450) k/uL Neutrophils # 0.0 L* (1.3-7.7) k/uL Lymphocytes # 0.1 L (1.0-4.8) k/uL Sodium (137-145) mmol/L Potassium (3.5-5.1) mmol/L Chloride (98-107) mmol/L Carbon Dioxide (22-30) mmol/L Creatinine (0.66-1.25) mg/dL Glucose (74-99) mg/dL POC Glucose (mg/dL) 118 H (70-110) mg/dL Plasma Lactic Acid Marcello 4.1 H* (0.7-2.0) mmol/L Magnesium (1.6-2.3) mg/dL C-Reactive Protein (<1.0) mg/dL Procalcitonin (0.02-0.09) ng/mL Ur Specific [place] (1.001-1.035) Urine Protein (Negative) Urine Glucose (UA) (Negative) Urine Ketones (Negative) Urine Blood (Negative) Urine RBC (0-5) /hpf Urine WBC (0-5) /hpf Hyaline Casts (0-2) /lpf Urine Mucus (None) /hpf Crossmatch 06/14/22 Range/Units Unknown WBC (3.8-10.6) k/uL RBC (4.30-5.90) m/uL Hgb (13.0-17.5) gm/dL Hct (39.0-53.0) % RDW (11.5-15.5) % Plt Count (150-450) k/uL Neutrophils # (1.3-7.7) k/uL Lymphocytes # (1.0-4.8) k/uL Sodium (137-145) mmol/L Potassium (3.5-5.1) mmol/L Chloride (98-107) mmol/L Carbon Dioxide (22-30) mmol/L Creatinine (0.66-1.25) mg/dL Glucose (74-99) mg/dL POC Glucose (mg/dL) (70-110) mg/dL Plasma Lactic Acid [place]cell[place] (0.7-2.0) mmol/L Magnesium (1.6-2.3) mg/dL C-Reactive Protein (<1.0) mg/dL Procalcitonin (0.02-0.09) ng/mL Ur Specific [place] 1.037 H (1.001-1.035) Urine Protein 1+ H (Negative) Urine Glucose (UA) (Negative) Urine Ketones Trace H (Negative) Urine Blood (Negative) Urine RBC (0-5) /hpf Urine WBC (0-5) /hpf Hyaline Casts (0-2) /lpf Urine Mucus Rare H (None) /hpf Crossmatch Microbiology - Last 24 Hours (Table) 06/14/22 15:40 Catheter Tip Culture - Preliminary Picc Line 06/14/22 18:30 Urine Culture - Preliminary Urine,Catheterized 06/14/22 09:32 Blood Culture Gram Stain - Preliminary Blood 06/14/22 09:32 Blood Culture - Final Blood Assessment and Plan (1) Neutropenic fever Current Visit: Yes Status: Acute Priority: High Code(s): D70.9 - NEUTROPENIA, UNSPECIFIED; R50.81 - FEVER PRESENTING WITH CONDITIONS CLASSIFIED ELSEWHERE SNOMED Code(s): 979841106 Plan: 1patient presented to hospital with sepsis suspected have a fever tachycardia elevated lactic acid source possible PICC line and likely from gram-positive skin acosta underlying gram-negative infection not entirely excluded. 2PICC has been discontinued the tip has been sent for culture 3-patient to continue with vancomycin pharmacy to dose target trough of 15 while watching kidney function and vancomycin trough closely 4-cefepime 2 g every 8 hours to continue We will follow on clinical condition and cultures to further adjust medication if needed Thank you for this consultation will follow this patient along with you Time with Patient: Greater than 30
[2022-06-14] MEDS: SENNOSIDES-DOCUSATE SODIUM 1 EACH TAB PO SCH (22:50)
[2022-06-15] MEDS: CEFEPIME 2 GM in SODIUM CHLORIDE 0.9% 100 ML IVPB SCH ×4 (01:13→22:49)
[2022-06-15] MEDS: SODIUM CHLORIDE 0.9% 1,000 ML IV SCH ×2 (01:14→10:57)
[2022-06-15] MEDS: ZOLPIDEM 5 MG TAB PO PRN ×2 (01:53→21:05)
[2022-06-15] MEDS: metroNIDAZOLE-NS PMX 500 MG in SALINE 1 100ML.BAG IVPB SCH ×3 (02:02→16:58)
[2022-06-15] MEDS ORDERED: MORPHINE SULFATE 4 MG/ML SYRINGE IVP PRN (02:24)
[2022-06-15] MEDS ORDERED: ACETAMINOPHEN IV (For NPO) 1,000 MG in EMPTY BAG 1 BAG IVPB ONE (03:51)
[2022-06-15] MEDS ORDERED: SODIUM CHLORIDE 0.9% 1,000 ML IV ONE (03:51)
[2022-06-15] MEDS ORDERED: METOPROLOL TARTRATE 5 MG/5 ML VIAL IVP STA (05:04)
[2022-06-15 06:21] LABS: Anisocytosis Slight; MCH 28.2 pg (25.0-35.0); MCHC 33.8 g/dL (31.0-37.0); MCV 83.7 fL (80.0-100.0); Mean Platelet Volume 8.5; Poikilocytosis Slight; RBC 2.29 m/uL (4.30-5.90); RDW 16.8 % (11.5-15.5)
[2022-06-15 06:51] LABS: Albumin 2.8 g/dL (3.5-5.0); Bilirubin, Delta 0.3 mg/dL (0.0-0.2); Bilirubin,Unconjugated 1.1 mg/dL (0.0-1.1); Calcium 7.1 mg/dL (8.4-10.2); Magnesium 1.1 mg/dL (1.6-2.3); Potassium 3.5 mmol/L (3.5-5.1); Total Bilirubin 1.4 mg/dL (0.2-1.3); Total Protein 5.1 g/dL (6.3-8.2)
[2022-06-15] MEDS ORDERED: Magnesium Replacement Protocol 1 EACH MISC MISCELLANE PRN (06:58)
[2022-06-15] MEDS ORDERED: Potassium Replacement Protocol 1 EACH MISC MISCELLANE PRN (06:58)
[2022-06-15] MEDS: POTASSIUM CHLORIDE ER 20 MEQ TAB.ER PO SCH ×2 (07:25→08:22)
--- NOTE | 2022-06-15 07:45 | CA ---
Transthoracic Echo Report Name: Akira Sultana Age: 27 Gender: M : 1995 Exam Date: 06/14/2022 14:41 Exam Location: [facility] Ht (in): 71 Wt (lb): 270 Ordering Physician: Chadd Hoyt MD Attending/Referring Phys: Buggy Runner Kathleen Osborne RDCS Procedure CPT: Indications: rule out heart valve vegetation Cardiac Hx: Technical Quality: Fair Contrast 1: Total Dose (mL): Contrast 2: Total Dose (mL): MEASUREMENTS (Male / Female) Normal Values 2D ECHO LV Diastolic Diameter PLAX 5.3 cm 4.2 - 5.9 / 3.9 - 5.3 cm LV Systolic Diameter PLAX 4.1 cm IVS Diastolic Thickness 1.0 cm 0.6 - 1.0 / 0.6 - 0.9 cm LVPW Diastolic Thickness 1.2 cm 0.6 - 1.0 / 0.6 - 0.9 cm LV Relative Wall Thickness 0.4 DOPPLER TR Peak Velocity 285.4 cm/s TR Peak Gradient 32.6 mmHg Right Ventricular Systolic Press 37.6 mmHg FINDINGS Left Ventricle Left ventricular wall thickness normal. Left ventricular cavity size normal. Reduced global left ventricular systolic function. Left ventricular ejection fraction is estimated at 30-35% Right Ventricle Right Atrium Left Atrium Mitral Valve No mitral stenosis. Mild mitral regurgitation. No vegetation seen on the mitral valve. Aortic Valve No aortic valve stenosis or regurgitation. Tricuspid Valve Structurally normal tricuspid valve. Mild tricuspid regurgitation. Pulmonic Valve Structurally normal pulmonic valve. Trace pulmonic regurgitation. Pericardium No pericardial effusion. Aorta CONCLUSIONS Left ventricle is at upper limits of normal with global decrease in contractility estimated ejection fraction of 35% area did there is no evidence of any vegetation on mitral aortic valves but transthoracic echo is suboptimal for this purpose. No pericardial effusion Previewed by: Dr. Bhakti Catherine MD (Electronically Signed) Final Date: 15 June 2022 07:44
[2022-06-15 07:48] LABS: WBC 0.3 k/uL (3.8-10.6)
[2022-06-15 07:57] LABS: HGB 6.5 gm/dL (13.0-17.5); Platelet Count 9 k/uL (150-450)
[2022-06-15 07:58] LABS: HCT 19.1 % (39.0-53.0)
[2022-06-15] MEDS: MAGNESIUM SULFATE-D5W PMX 1 GM in DEXTROSE/WATER 1 100ML.BAG IVPB SCH ×3 (08:20→10:45)
[2022-06-15] MEDS: CHOLECALCIFEROL 125 MCG (5000 IU) TABLET PO SCH (08:24)
[2022-06-15] MEDS: VANCOMYCIN 2,000 MG in SODIUM CHLORIDE 0.9% 500 ML 500 ML IVPB SCH (08:34)
[2022-06-15] MEDS: prednisoLONE ACETATE 1% OPHTH DROPS 5 ML BTL BOTH EYES SCH ×4 (08:45→21:00)
[2022-06-15] MEDS: ACYCLOVIR 200 MG CAP PO SCH ×2 (08:45→21:00)
[2022-06-15 10:17] LABS: Tear Drop Cells Present
[2022-06-15] MEDS: NOREPINEPHRINE 4 MG in SODIUM CHLORIDE 0.9% 250 ML IV SCH ×3 (10:47→16:54)
[2022-06-15] MEDS: DEXTROSE 5% IN WATER 1,000 ML with SODIUM BICARB (1 MEQ/ML) 150 ML IV SCH (10:58)
[2022-06-15] MEDS: SODIUM CHLORIDE 0.9% 500 ML 500 ML IV SCH (11:00)
--- NOTE | 2022-06-15 11:28 | P.PN ---
Subjective Progress Note Date: 06/15/22 Currently in ICU, PRBC ordered, discussed with Dr. Hoyt this am echo revealed 35% EF. Blood cultures positive gram neg bacteremia less than [address] Keith evaluated after nursing called. Patient fever increased during transfusion, RR increased. Objective - Vital Signs Vital signs: Vital Signs Temp 99.3 F 06/15/22 10:25 Pulse 125 H 06/15/22 10:25 Resp 36 H 06/15/22 10:25 BP 120/90 06/15/22 10:25 Pulse Ox 95 06/15/22 10:25 FiO2 Intake & Output 06/14/22 06/15/22 06/15/22 18:59 06:59 18:59 Intake Total 0 4808 950 Output Total 1431 140 Balance 0 3377 810 Weight 122.47 kg 134.5 kg Intake: IV 1500 950 Cefepime 2 gm In Sodium 100 Chloride 0.9% 100 ml @ 25 mls/hr IVPB Q8HR REPLACED BY [facility] Rx# :[id number] Magnesium Sulfate-D5w Pmx 300 1 gm In Dextrose/Water 1 100ml.bag @ 100 mls/hr IVPB Q1H [facility] Rx#: [id number] Sodium Chloride 0.9% 1, 1500 450 000 ml @ 150 mls/hr IV . Q6H40M REPLACED BY [facility] Rx#:[id number] metroNIDAZOLE-NS PMX 500 100 mg In Saline 1 100ml.bag @ 100 mls/hr IVPB Q8H REPLACED BY [facility] Rx#:[id number] Intake, IV Titration 1600 Amount Sodium Chloride 0.9% 1, 1000 000 ml @ 999 mls/hr IV . Q1H1M ONE Rx#:[id number] Vancomycin 2,000 mg In 100 Sodium Chloride 0.9% 500 ml 500 ml @ 167 mls/hr IVPB ONCE ONE Rx#: [id number] Vancomycin 2,000 mg In 500 Sodium Chloride 0.9% 500 ml 500 ml @ 167 mls/hr IVPB Q12H REPLACED BY [facility] Rx#: [id number] Oral 400 Blood Product 0 1308 0 Unit 0 Platelet Pheresis Pas 344 Psoralen Unit [id number] Rc Irr As1 Unit 0 310 [id number] Output: Urine 1431 140 Other: Voiding Method Indwelling Catheter Indwelling Catheter # Bowel Movements 1 - Exam Increased respirations Flushed HR Tachy Abdomen Soft NONDIST No rash - Labs CBC & Chem 7: 06/15/22 13:14 06/15/22 13:14 Labs: Abnormal Lab Results - Last 24 Hours (Table) 06/14/22 06/14/22 06/14/22 Range/Units 09:32 09:32 11:35 WBC (3.8-10.6) k/uL RBC (4.30-5.90) m/uL Hgb (13.0-17.5) gm/dL Hct (39.0-53.0) % RDW (11.5-15.5) % Plt Count 3 L* (150-450) k/uL Neutrophils # (1.3-7.7) k/uL Lymphocytes # (1.0-4.8) k/uL Chloride (98-107) mmol/L Carbon Dioxide (22-30) mmol/L BUN (9-20) mg/dL Creatinine (0.66-1.25) mg/dL Glucose (74-99) mg/dL POC Glucose (mg/dL) (70-110) mg/dL Plasma Lactic Acid Marcello (0.7-2.0) mmol/L Calcium (8.4-10.2) mg/dL Magnesium (1.6-2.3) mg/dL Total Bilirubin (0.2-1.3) mg/dL Delta Bilirubin (0.0-0.2) mg/dL AST (17-59) U/L ALT (4-49) U/L C-Reactive Protein (<1.0) mg/dL Total Protein (6.3-8.2) g/dL Albumin (3.5-5.0) g/dL Procalcitonin 38.40 H (0.02-0.09) ng/mL Ur Specific Malin (1.001-1.035) Urine Protein (Negative) Urine Glucose (UA) (Negative) Urine Ketones (Negative) Urine Blood (Negative) Urine RBC (0-5) /hpf Urine WBC (0-5) /hpf Hyaline Casts (0-2) /lpf Urine Mucus (None) /hpf Crossmatch See Detail 06/14/22 06/14/22 06/14/22 Range/Units 12:15 12:59 14:58 WBC 0.1 L* (3.8-10.6) k/uL RBC 2.18 L (4.30-5.90) m/uL Hgb 6.4 L* D (13.0-17.5) gm/dL Hct 18.6 L* (39.0-53.0) % RDW 16.9 H (11.5-15.5) % Plt Count 3 L* (150-450) k/uL Neutrophils # 0.0 L* (1.3-7.7) k/uL Lymphocytes # 0.1 L (1.0-4.8) k/uL Chloride (98-107) mmol/L Carbon Dioxide (22-30) mmol/L BUN (9-20) mg/dL Creatinine (0.66-1.25) mg/dL Glucose (74-99) mg/dL POC Glucose (mg/dL) (70-110) mg/dL Plasma Lactic Acid Marcello 3.9 H* (0.7-2.0) mmol/L Calcium (8.4-10.2) mg/dL Magnesium (1.6-2.3) mg/dL Total Bilirubin (0.2-1.3) mg/dL Delta Bilirubin (0.0-0.2) mg/dL AST (17-59) U/L ALT (4-49) U/L C-Reactive Protein (<1.0) mg/dL Total Protein (6.3-8.2) g/dL Albumin (3.5-5.0) g/dL Procalcitonin (0.02-0.09) ng/mL Ur Specific Malin (1.001-1.035) Urine Protein 2+ H (Negative) Urine Glucose (UA) Trace H (Negative) Urine Ketones 1+ H (Negative) Urine Blood Small H (Negative) Urine RBC 6 H (0-5) /hpf Urine WBC 9 H (0-5) /hpf Hyaline Casts 4 H (0-2) /lpf Urine Mucus Few H (None) /hpf Crossmatch 06/14/22 06/14/22 06/14/22 Range/Units 16:09 18:26 19:37 WBC 0.1 L* (3.8-10.6) k/uL RBC 2.41 L (4.30-5.90) m/uL Hgb 7.2 L (13.0-17.5) gm/dL Hct 20.7 L (39.0-53.0) % RDW 17.4 H (11.5-15.5) % Plt Count 3 L* (150-450) k/uL Neutrophils # 0.0 L* (1.3-7.7) k/uL Lymphocytes # 0.1 L (1.0-4.8) k/uL Chloride (98-107) mmol/L Carbon Dioxide (22-30) mmol/L BUN (9-20) mg/dL Creatinine (0.66-1.25) mg/dL Glucose (74-99) mg/dL POC Glucose (mg/dL) 118 H (70-110) mg/dL Plasma Lactic Acid Marcello 4.9 H* (0.7-2.0) mmol/L Calcium (8.4-10.2) mg/dL Magnesium (1.6-2.3) mg/dL Total Bilirubin (0.2-1.3) mg/dL Delta Bilirubin (0.0-0.2) mg/dL AST (17-59) U/L ALT (4-49) U/L C-Reactive Protein (<1.0) mg/dL Total Protein (6.3-8.2) g/dL Albumin (3.5-5.0) g/dL Procalcitonin (0.02-0.09) ng/mL Ur Specific Malin (1.001-1.035) Urine Protein (Negative) Urine Glucose (UA) (Negative) Urine Ketones (Negative) Urine Blood (Negative) Urine RBC (0-5) /hpf Urine WBC (0-5) /hpf Hyaline Casts (0-2) /lpf Urine Mucus (None) /hpf Crossmatch 06/14/22 06/14/22 06/14/22 Range/Units 19:37 22:30 Unknown WBC (3.8-10.6) k/uL RBC (4.30-5.90) m/uL Hgb (13.0-17.5) gm/dL Hct (39.0-53.0) % RDW (11.5-15.5) % Plt Count (150-450) k/uL Neutrophils # (1.3-7.7) k/uL Lymphocytes # (1.0-4.8) k/uL Chloride (98-107) mmol/L Carbon Dioxide (22-30) mmol/L BUN (9-20) mg/dL Creatinine (0.66-1.25) mg/dL Glucose (74-99) mg/dL POC Glucose (mg/dL) (70-110) mg/dL Plasma Lactic Acid Marcello 4.1 H* 2.8 H* (0.7-2.0) mmol/L Calcium (8.4-10.2) mg/dL Magnesium (1.6-2.3) mg/dL Total Bilirubin (0.2-1.3) mg/dL Delta Bilirubin (0.0-0.2) mg/dL AST (17-59) U/L ALT (4-49) U/L C-Reactive Protein (<1.0) mg/dL Total Protein (6.3-8.2) g/dL Albumin (3.5-5.0) g/dL Procalcitonin (0.02-0.09) ng/mL Ur Specific Malin 1.037 H (1.001-1.035) Urine Protein 1+ H (Negative) Urine Glucose (UA) (Negative) Urine Ketones Trace H (Negative) Urine Blood (Negative) Urine RBC (0-5) /hpf Urine WBC (0-5) /hpf Hyaline Casts (0-2) /lpf Urine Mucus Rare H (None) /hpf Crossmatch 06/15/22 06/15/22 06/15/22 Range/Units 02:35 05:41 05:41 WBC (3.8-10.6) k/uL RBC (4.30-5.90) m/uL Hgb (13.0-17.5) gm/dL Hct (39.0-53.0) % RDW (11.5-15.5) % Plt Count (150-450) k/uL Neutrophils # (1.3-7.7) k/uL Lymphocytes # (1.0-4.8) k/uL Chloride 110 H (98-107) mmol/L Carbon Dioxide 14 L (22-30) mmol/L BUN 25 H (9-20) mg/dL Creatinine 1.51 H (0.66-1.25) mg/dL Glucose 105 H (74-99) mg/dL POC Glucose (mg/dL) (70-110) mg/dL Plasma Lactic Acid Marcello 2.4 H* (0.7-2.0) mmol/L Calcium 7.1 L (8.4-10.2) mg/dL Magnesium 1.1 L (1.6-2.3) mg/dL Total Bilirubin 1.4 H (0.2-1.3) mg/dL Delta Bilirubin 0.3 H (0.0-0.2) mg/dL AST 90 H (17-59) U/L ALT 84 H (4-49) U/L C-Reactive Protein 34.0 H (<1.0) mg/dL Total Protein 5.1 L (6.3-8.2) g/dL Albumin 2.8 L (3.5-5.0) g/dL Procalcitonin 65.30 H (0.02-0.09) ng/mL Ur Specific Malin (1.001-1.035) Urine Protein (Negative) Urine Glucose (UA) (Negative) Urine Ketones (Negative) Urine Blood (Negative) Urine RBC (0-5) /hpf Urine WBC (0-5) /hpf Hyaline Casts (0-2) /lpf Urine Mucus (None) /hpf Crossmatch 06/15/22 Range/Units 05:41 WBC 0.3 L* (3.8-10.6) k/uL RBC 2.29 L (4.30-5.90) m/uL Hgb 6.5 L* (13.0-17.5) gm/dL Hct 19.1 L* (39.0-53.0) % RDW 16.8 H (11.5-15.5) % Plt Count 9 L* D (150-450) k/uL Neutrophils # (1.3-7.7) k/uL Lymphocytes # (1.0-4.8) k/uL Chloride (98-107) mmol/L Carbon Dioxide (22-30) mmol/L BUN (9-20) mg/dL Creatinine (0.66-1.25) mg/dL Glucose (74-99) mg/dL POC Glucose (mg/dL) (70-110) mg/dL Plasma Lactic Acid Marcello (0.7-2.0) mmol/L Calcium (8.4-10.2) mg/dL Magnesium (1.6-2.3) mg/dL Total Bilirubin (0.2-1.3) mg/dL Delta Bilirubin (0.0-0.2) mg/dL AST (17-59) U/L ALT (4-49) U/L C-Reactive Protein (<1.0) mg/dL Total Protein (6.3-8.2) g/dL Albumin (3.5-5.0) g/dL Procalcitonin (0.02-0.09) ng/mL Ur Specific Malin (1.001-1.035) Urine Protein (Negative) Urine Glucose (UA) (Negative) Urine Ketones (Negative) Urine Blood (Negative) Urine RBC (0-5) /hpf Urine WBC (0-5) /hpf Hyaline Casts (0-2) /lpf Urine Mucus (None) /hpf Crossmatch Microbiology - Last 24 Hours (Table) 06/14/22 09:32 Blood Culture Gram Stain - Preliminary Blood 06/14/22 09:32 Blood Culture Gram Stain - Preliminary Blood Blood Culture - Final Escherichia coli 06/14/22 09:32 Blood Culture - Final Blood 06/14/22 15:40 Catheter Tip Culture - Preliminary Picc Line 06/14/22 18:30 Urine Culture - Preliminary Urine,Catheterized 06/14/22 09:32 Blood Culture - Final Blood Assessment and Plan (1) Neutropenic fever Narrative/Plan: Dominguez Culture Bacteremia Positive less than 24 hours Gram Negative Bacilli Aggressive supportive care Discussed with primary team Transfuse irradiated only platelets <15 and PRBC <7 Current Visit: Yes Status: Acute Priority: High Code(s): D70.9 - NEUTROPENIA, UNSPECIFIED; R50.81 - FEVER PRESENTING WITH CONDITIONS CLASSIFIED ELSEWHERE SNOMED Code(s): 556340210 (2) Pancytopenia Narrative/Plan: Transfuse irradited platelets and PRBC today Check DIC and monitor if fibrinogen low transfuse cryo Current Visit: Yes Status: Acute Code(s): D61.818 - OTHER PANCYTOPENIA SNOMED Code(s): 105791472 (3) AML (acute myelogenous leukemia) Narrative/Plan: Status Post OCnsolidation Current Visit: Yes Status: Chronic Priority: High Code(s): C92.00 - ACUTE MYELOBLASTIC LEUKEMIA, NOT HAVING ACHIEVED REMISSION SNOMED Code(s): 07995008 (4) Acute kidney insufficiency Narrative/Plan: Monitor tumor lysis Current Visit: Yes Status: Acute Code(s): N28.9 - DISORDER OF KIDNEY AND URETER, UNSPECIFIED SNOMED Code(s): 733441171 (5) Septic shock Narrative/Plan: Aggressive support Current Visit: Yes Status: Acute Code(s): A41.9 - SEPSIS, UNSPECIFIED ORGANISM; R65.21 - SEVERE SEPSIS WITH SEPTIC SHOCK SNOMED Code(s): 63618092 Plan: Dr. Waller: I have completed the full history and physial and developed the above impression and plan, agree with dictation, dictated as a scribe
[2022-06-15] MEDS: METOPROLOL SUCCINATE (ER) 25 MG TAB.ER.24H PO SCH (11:57)
[2022-06-15] MEDS: ACETAMINOPHEN IV (For NPO) 1,000 MG in EMPTY BAG 1 BAG IVPB SCH ×3 (12:26→22:50)
--- NOTE | 2022-06-15 12:45 | P.CRDCN ---
History of Present Illness Consult date: 06/15/22 History of present illness: 27-year-old man with a medical history of AML currently undergoing consolidation therapy, recurrent neutropenic fever presented with fevers, low blood count. Consult to see the patient for cardiomyopathy. Patient is found to have positive blood cultures with E. coli from the PICC line. He had an echocardiogram which showed a severely decreased LV function with an EF of 35% without vegetation on the mitral and aortic valves. Patient's troponin was positive at 1.97. Need to be secondary due to positive blood cultures. Due to thrombocytopenia will hold off on anticoagulation. Cardiology is believed to be secondary to sepsis and increased renal function. It is unlikely that the patient this age to have cardiomyopathy secondary to coronary artery disease.Will start Toprol-XL 25 mg. Review of Systems REVIEW OF SYSTEMS At the time of my exam: CONSTITUTIONAL: Denies fever or chills. EYES: Negative for vision changes ENT: Negative for hearing loss CARDIOVASCULAR: Denies chest pain, shortness of breath, diaphoresis, orthopnea, PND or palpitations. VASCULAR: Denies edema RESPIRATORY: Denies cough. GASTROINTESTINAL: Denies abdominal pain, diarrhea, constipation, nausea or vomiting. MUSCULOSKELETAL: Denies myalgias. NEUROLOGIC: Denies numbness, tingling, headache or weakness. ENDOCRINE: Denies fatigue, weight change, polydipsia or polyurina. GENITOURINARY: Denies burning, hematuria or urgency with micturation. HEMATOLOGIC: Denies history of anemia or bleeding. DERMATOLOGY: Denies rash or skin sores PSYCH: Negative for depression or hallucinations. Past Medical History Past Medical History: Cancer Additional Past Medical History / Comment(s): Pt recently admitted to [facility] on 05/07/22 with severe pancytopenia with mucous membrane bleeding. Other hx: AML, leukocytosis/thrombocytopenia, pancytopenia, coagulopathy/neuropenic fever, covid/pneumonia, anemia with blood transfusions. History of Any Multi-Drug Resistant Organisms: None Reported Past Surgical History: Adenoidectomy, Tonsillectomy Additional Past Surgical History / Comment(s): BMAs, picc line placed Past Anesthesia/Blood Transfusion Reactions: No Reported Reaction Past Psychological History: Anxiety Smoking Status: Never smoker - Past Family History Mother Family Medical History: Cancer Additional Family Medical History / Comment(s): breast CA Father Family Medical History: No Reported History Medications and Allergies Home Medications Medication Instructions Recorded Confirmed Type ALPRAZolam [Xanax] 0.5 mg PO TID PRN tab 03/27/22 06/14/22 Rx Cholecalciferol [Vitamin D3 (125 250 mcg PO DAILY #30 tab 03/27/22 06/14/22 Rx Mcg = 5000 Iu)] Acetaminophen Tab [Tylenol] 650 mg PO Q6HR PRN tab 04/29/22 06/14/22 Rx Acyclovir [Zovirax] 400 mg PO BID #60 tablet 04/29/22 06/14/22 Rx Ciprofloxacin HCl [Cipro] 500 mg PO DAILY 30 Days #30 tab 04/29/22 06/14/22 Rx bisacodyL [Dulcolax] 5 mg PO DAILY PRN tab 04/29/22 06/14/22 Rx hydrOXYzine HCL [Atarax] 25 mg PO QID PRN #45 tab 04/29/22 06/14/22 Rx Sennosides-Docusate Sodium 1 tab PO HS 05/07/22 06/14/22 History [Senokot-S] Famotidine [Pepcid] 20 mg PO HS tab 06/03/22 06/14/22 Rx Lidocaine Viscous 2% [Xylocaine 30 ml PO TID ml 06/03/22 06/14/22 Rx Viscous] Mag Hydrox/Al Hydrox/Simeth 30 ml PO TID ml 06/03/22 06/14/22 Rx [Maalox] prednisoLONE ACETATE 1% OPHTH 1 drops BOTH EYES QID ml 06/03/22 06/14/22 Rx [Pred Forte 1%] Allergies Allergy/AdvReac Type Severity Reaction Status Date / Time No Known Allergies Allergy Verified 06/14/22 12:46 Physical Exam Vitals: Vital Signs Temp Pulse Pulse Resp BP BP BP 06/15/22 10:44 99.9 F H 125 H 37 H 128/90 06/15/22 10:25 99.3 F 125 H 36 H 120/90 06/15/22 10:04 98.5 F 122 H 26 H 116/75 06/15/22 10:00 116 H 33 H 107/82 06/15/22 09:00 115 H 27 H 112/67 06/15/22 08:00 98.1 F 117 H 34 H 104/67 06/15/22 07:00 121 H 24 95/63 06/15/22 06:00 126 H 44 H 108/62 06/15/22 05:00 141 H 39 H 120/75 06/15/22 04:00 151 H 135 H 44 H 120/75 06/15/22 03:00 147 H 43 H 128/76 06/15/22 02:00 149 H 33 H 133/93 06/15/22 01:20 98.9 F 144 H 35 H 142/79 06/15/22 01:00 144 H 35 H 142/79 06/15/22 00:00 98.9 F 147 H 135 H 37 H 127/87 06/14/22 23:10 98.5 F 140 H 33 H 120/86 06/14/22 23:07 138 H 36 H 112/86 06/14/22 23:00 137 H 34 H 132/82 06/14/22 22:40 98.9 F 137 H 27 H 122/87 06/14/22 22:30 99.3 F 137 H 32 H 114/56 06/14/22 22:00 138 H 34 H 91/50 06/14/22 21:00 98.1 F 135 H 30 H 100/47 06/14/22 20:15 98.1 F 137 H 34 H 111/69 06/14/22 20:10 133 H 37 H 115/52 06/14/22 20:00 137 H 135 H 30 H 99/69 06/14/22 19:45 135 H 27 H 109/80 06/14/22 19:30 137 H 32 H 88/34 06/14/22 19:15 137 H 40 H 105/72 06/14/22 19:00 137 H 38 H 98/59 06/14/22 18:57 98.2 F 133 H 34 H 98/59 06/14/22 18:45 135 H 38 H 86/52 06/14/22 18:37 98.2 F 137 H 37 H 86/52 06/14/22 18:30 138 H 33 H 106/44 06/14/22 18:15 140 H 41 H 06/14/22 18:07 98.1 F 138 H 35 H 115/60 06/14/22 18:00 135 H 36 H 94/43 06/14/22 17:57 98.6 F 135 H 33 H 94/43 06/14/22 17:55 134 H 122 H 18 06/14/22 17:15 98.5 F 129 H 19 102/62 06/14/22 16:00 98.3 F 124 H 18 78/46 91/42 06/14/22 15:17 128 H 17 105/66 06/14/22 14:30 98.7 F 128 H 19 85/41 06/14/22 14:20 128 H 19 85/41 06/14/22 14:00 122 H 18 06/14/22 13:29 99.5 F 128 H 15 101/47 Pulse Ox 06/15/22 10:44 97 06/15/22 10:25 95 06/15/22 10:04 96 06/15/22 10:00 94 L 06/15/22 09:00 96 06/15/22 08:00 98 06/15/22 07:00 98 06/15/22 06:00 98 06/15/22 05:00 98 06/15/22 04:00 97 06/15/22 03:00 96 06/15/22 02:00 96 06/15/22 01:20 100 06/15/22 01:00 96 06/15/22 00:00 93 L 06/14/22 23:10 06/14/22 23:07 92 L 06/14/22 23:00 92 L 06/14/22 22:40 06/14/22 22:30 93 L 06/14/22 22:00 93 L 06/14/22 21:00 86 L 06/14/22 20:15 100 06/14/22 20:10 100 06/14/22 20:00 90 L 06/14/22 19:45 06/14/22 19:30 06/14/22 19:15 100 06/14/22 19:00 100 06/14/22 18:57 100 06/14/22 18:45 98 06/14/22 18:37 100 06/14/22 18:30 100 06/14/22 18:15 90 L 06/14/22 18:07 100 06/14/22 18:00 100 06/14/22 17:57 100 06/14/22 17:55 100 06/14/22 17:15 100 06/14/22 16:00 100 06/14/22 15:17 100 06/14/22 14:30 98 06/14/22 14:20 98 06/14/22 14:00 06/14/22 13:29 100 Intake and Output 06/14/22 06/15/22 06/15/22 22:59 06:59 14:59 Intake Total 1620 3188 1025 Output Total 782 649 240 Balance 838 8889 785 Intake: IV 400 1100 1025 Cefepime 2 gm In Sodium 100 Chloride 0.9% 100 ml @ 25 mls/hr IVPB Q8HR [facility] Rx# :[id number] Dextrose 5% in Water 1, 50 000 ml @ 50 mls/hr IV . Q23H BREANNA with Sodium Bicarb (1 Meq/ml) 150 ml Rx#:[id number] Magnesium Sulfate-D5w Pmx 300 1 gm In Dextrose/Water 1 100ml.bag @ 100 mls/hr IVPB Q1H [facility] Rx#: [id number] Sodium Chloride 0.9% 1, 400 1100 450 000 ml @ 150 mls/hr IV . Q6H40M [facility] Rx#:[id number] Sodium Chloride 0.9% 500 25 ml 500 ml @ 25 mls/hr IV .Q20H [facility] Rx#:[id number] metroNIDAZOLE-NS PMX 500 100 mg In Saline 1 100ml.bag @ 100 mls/hr IVPB Q8H [facility] Rx#:[id number] Intake, IV Titration 500 1100 Amount Sodium Chloride 0.9% 1, 1000 000 ml @ 999 mls/hr IV . Q1H1M ONE Rx#:[id number] Vancomycin 2,000 mg In 100 Sodium Chloride 0.9% 500 ml 500 ml @ 167 mls/hr IVPB ONCE ONE Rx#: [id number] Vancomycin 2,000 mg In 500 Sodium Chloride 0.9% 500 ml 500 ml @ 167 mls/hr IVPB Q12H [facility] Rx#: [id number] Oral 100 300 Blood Product 620 688 0 Unit 0 Platelet Pheresis Pas 0 344 Psoralen Unit [id number] Rc Irr As1 Unit 310 [id number] Output: Urine 782 649 240 Other: Voiding Method Indwelling Catheter Indwelling Catheter # Bowel Movements 1 Weight 134.5 kg PHYSICAL EXAMINATION VITAL SIGNS: Reviewed General: The patient is awake and alert, in no distress, and does not appear acutely ill. Skin: Skin is warm and dry and no rashes or lesions are noted. Eye: Pupils are equal, round and reactive to light, extra-ocular movements are intact; there is normal conjunctiva bilaterally. Ears, nose, mouth and throat: There are moist mucous membranes and no oral lesions. Neck: The neck is supple, there is no tenderness or JVD. Cardiovascular: There is regular rate and rhythm. No murmur, rub or gallop is appreciated. Respiratory: Lungs are clear to auscultation, respirations are non-labored, breath sounds are equal. Gastrointestinal: Soft, non-distended, non-tender abdomen without masses or organomegaly noted. There is no rebound or guarding present. Bowel sounds are unremarkable. Back: There is no tenderness to palpation in the midline. There is no obvious deformity. Musculoskeletal: Normal ROM, no tenderness, There is no pedal edema. There is no calf tenderness or swelling. Extremities: Mild bilateral pitting edema Vascular: Femoral pulse is normal. Posterior tibial pulses are normal .Dorsalis pedis is palpable. Neurological: CN II-XII intact. There are no obvious motor or sensory deficits. Speech is normal. Psychiatric: Cooperative, appropriate mood & affect, normal judgment Results 06/15/22 05:41 06/15/22 05:41 Cardiac Enzymes 06/15/22 06/15/22 Range/Units 05:41 05:41 AST 90 H (17-59) U/L Troponin I 1.970 H* (0.000-0.034) ng/mL CBC 06/14/22 06/14/22 06/14/22 Range/Units 09:32 14:58 19:37 WBC 0.1 L* 0.1 L* (3.8-10.6) k/uL RBC 2.18 L 2.41 L (4.30-5.90) m/uL Hgb 6.4 L* D 7.2 L (13.0-17.5) gm/dL Hct 18.6 L* 20.7 L (39.0-53.0) % Plt Count 3 L* 3 L* 3 L* (150-450) k/uL 06/15/22 Range/Units 05:41 WBC 0.3 L* (3.8-10.6) k/uL RBC 2.29 L (4.30-5.90) m/uL Hgb 6.5 L* (13.0-17.5) gm/dL Hct 19.1 L* (39.0-53.0) % Plt Count 9 L* D (150-450) k/uL Comprehensive Metabolic Panel 06/15/22 Range/Units 05:41 Sodium 138 (137-145) mmol/L Potassium 3.5 (3.5-5.1) mmol/L Chloride 110 H (98-107) mmol/L Carbon Dioxide 14 L (22-30) mmol/L BUN 25 H (9-20) mg/dL Creatinine 1.51 H (0.66-1.25) mg/dL Glucose 105 H (74-99) mg/dL Calcium 7.1 L (8.4-10.2) mg/dL Unconjugated Bilirubin 1.1 (0.0-1.1) mg/dL AST 90 H (17-59) U/L ALT 84 H (4-49) U/L Alkaline Phosphatase 48 (38-126) U/L Total Protein 5.1 L (6.3-8.2) g/dL Albumin 2.8 L (3.5-5.0) g/dL Current Medications Generic Name Dose Route Start Last Admin Trade Name Freq PRN Reason Stop Dose Admin Acetaminophen 1,000 mg 06/14/22 12:32 Acetaminophen Tab 500 Mg Tab PO Q6HR PRN Fever and/ or MILD Pain Hydrocodone Bitart/Acetaminophen 1 each 06/14/22 14:40 Hydrocodone/Apap 5-325mg 1 Each Tab PO Q4HR PRN Moderate Pain Acyclovir 400 mg 06/14/22 21:00 06/15/22 08:45 Acyclovir 200 Mg Cap PO 400 mg BID BREANNA Administration Alprazolam 0.5 mg 06/14/22 20:08 06/14/22 20:27 Alprazolam 0.5 Mg Tab PO 0.5 mg QID PRN Administration Anxiety Cholecalciferol 250 mcg 06/15/22 09:00 06/15/22 08:24 Cholecalciferol 125 Mcg (5000 Iu) Tablet PO 250 mcg DAILY BREANNA Administration Famotidine 20 mg 06/14/22 21:00 06/14/22 21:48 Famotidine 20 Mg Tab PO 20 mg HS BREANNA Administration Vancomycin HCl 2,000 mg/ 500 mls @ 167 mls/hr 06/14/22 21:00 06/15/22 08:34 Sodium Chloride IVPB 167 mls/hr Q12H BREANNA Administration Norepinephrine Bitartrate 4 mg 254 mls @ 23.331 mls/hr 06/14/22 16:15 06/15/22 11:11 / Sodium Chloride IV Not Given .[id number] BREANNA Protocol 0.05 MCG/KG/MIN Cefepime HCl 2 gm/ Sodium 100 mls @ 25 mls/hr 06/14/22 16:30 06/15/22 08:21 Chloride IVPB 25 mls/hr Q8HR BREANNA Administration Protocol Metronidazole 500 mg/ IV 100 mls @ 100 mls/hr 06/15/22 01:00 06/15/22 08:21 Solution IVPB 100 mls/hr Q8H BREANNA Administration Protocol Sodium Bicarbonate 150 ml/ 1,150 mls @ 50 mls/hr 06/15/22 10:30 06/15/22 10:58 Dextrose/Water IV 50 mls/hr .Q23H BREANNA Administration Sodium Chloride 500 mls @ 25 mls/hr 06/15/22 11:00 06/15/22 11:00 Saline 0.9% IV 25 mls/hr .Q20H BREANNA Administration Acetaminophen 1,000 mg/ IV 100 mls @ 400 mls/hr 06/15/22 12:30 Solution IVPB 06/16/22 06:14 Q6HR BREANNA Metoprolol Succinate 25 mg 06/15/22 11:30 06/15/22 11:57 Metoprolol Succinate (Er) 25 Mg Tab.Er.24h PO 25 mg DAILY BREANNA Administration Miscellaneous Information 1 each 06/14/22 14:40 Rx Info: Iv Contrast Was Given 1 Each Misc MISCELLANE 06/16/22 14:40 DAILY PRN Per Protocol Miscellaneous Information 1 each 06/15/22 06:58 Potassium Replacement Protocol 1 Each Misc MISCELLANE DAILY PRN Per Protocol Protocol Miscellaneous Information 1 each 06/15/22 06:58 Magnesium Replacement Protocol 1 Each Misc MISCELLANE DAILY PRN Per Protocol Protocol Morphine Sulfate 4 mg 06/15/22 02:24 06/15/22 02:33 Morphine Sulfate 4 Mg/Ml Syringe IVP 4 mg Q4HR PRN Administration Pain Naloxone HCl 0.2 mg 06/14/22 12:29 Naloxone 0.4 Mg/Ml 1 Ml Vial IV Q2M PRN Opioid Reversal Prednisolone Acetate 1 drops 06/14/22 18:00 06/15/22 08:45 Prednisolone Acetate 1% Ophth Drops 5 Ml Btl BOTH EYES 1 drops QID BREANNA Administration Senna/Docusate Sodium 1 each 06/14/22 21:00 06/14/22 22:50 Sennosides-Docusate Sodium 1 Each Tab PO Not Given HS BREANNA Zolpidem Tartrate 10 mg 06/15/22 01:02 06/15/22 01:53 Zolpidem 5 Mg Tab PO 10 mg HS PRN Administration Insomnia Intake and Output 06/14/22 06/15/22 06/15/22 22:59 06:59 14:59 Intake Total 1620 3188 1025 Output Total 782 649 240 Balance 838 1679 785 Intake: IV 400 1100 1025 Cefepime 2 gm In Sodium 100 Chloride 0.9% 100 ml @ 25 mls/hr IVPB Q8HR [facility] Rx# :[id number] Dextrose 5% in Water 1, 50 000 ml @ 50 mls/hr IV . Q23H BREANNA with Sodium Bicarb (1 Meq/ml) 150 ml Rx#:[id number] Magnesium Sulfate-D5w Pmx 300 1 gm In Dextrose/Water 1 100ml.bag @ 100 mls/hr IVPB Q1H [facility] Rx#: [id number] Sodium Chloride 0.9% 1, 400 1100 450 000 ml @ 150 mls/hr IV . Q6H40M [facility] Rx#:[id number] Sodium Chloride 0.9% 500 25 ml 500 ml @ 25 mls/hr IV .Q20H [facility] Rx#:[id number] metroNIDAZOLE-NS PMX 500 100 mg In Saline 1 100ml.bag @ 100 mls/hr IVPB Q8H [facility] Rx#:[id number] Intake, IV Titration 500 1100 Amount Sodium Chloride 0.9% 1, 1000 000 ml @ 999 mls/hr IV . Q1H1M ONE Rx#:[id number] Vancomycin 2,000 mg In 100 Sodium Chloride 0.9% 500 ml 500 ml @ 167 mls/hr IVPB ONCE ONE Rx#: [id number] Vancomycin 2,000 mg In 500 Sodium Chloride 0.9% 500 ml 500 ml @ 167 mls/hr IVPB Q12H [facility] Rx#: [id number] Oral 100 300 Blood Product 620 688 0 Unit 0 Platelet Pheresis Pas 0 344 Psoralen Unit [id number] Rc Irr As1 Unit 310 [id number] Output: Urine 782 649 240 Other: Voiding Method Indwelling Catheter Indwelling Catheter # Bowel Movements 1 Weight 134.5 kg 06/15/22 05:41 06/15/22 05:41 Assessment and Plan Assessment: Nonischemic cardiomyopathy secondary to sepsis infection Elevated troponin secondary to sepsis and renal functio Plan: Will start Toprol-XL 25 mg Once renal function improves will consider starting ELPIDIO inhibitor Will continue to hold initiation of anticoagulations due to thrombocythemia Further recommendations based on clinical course The above impression and plan of care have been discussed and directed by the signing physician. Michelle Magallanes, nurse practitioner, acting as scribe for signing physician.
[2022-06-15] MEDS ORDERED: FUROSEMIDE 10 MG/ML 4 ML VIAL IV STA (12:56)
[2022-06-15 13:26] LABS: Creatinine,Urine Random 154.4 mg/dL; Protein/Creatinine Ratio,Urine 0.337
[2022-06-15 13:36] LABS: Anisocytosis Slight; HCT 21.6 % (39.0-53.0); HGB 7.6 gm/dL (13.0-17.5); MCH 30.1 pg (25.0-35.0); MCHC 35.2 g/dL (31.0-37.0); MCV 85.5 fL (80.0-100.0); Mean Platelet Volume 7.2; Poikilocytosis Slight; RBC 2.53 m/uL (4.30-5.90); RDW 17.2 % (11.5-15.5)
[2022-06-15 13:40] LABS: Platelet Count 11 k/uL (150-450); WBC 0.3 k/uL (3.8-10.6)
--- NOTE | 2022-06-15 13:40 | P.CNPUL ---
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 His presenting symptoms at that time were mostly l eukocytosis thrombocytopenia and peripheral blasts. Bone marrow on 02/25/22 revealed AML, 80-90% blasts. Trisomy 21, NGS negative for any other genomic alterations. Patient underwent induction therapy 7+3 regimen, patient developed Coumadin infection during that hospitalization. Repeat bone marrow on 03/30 revealed a complete response. Patient received his first consolidation therapy and has been followed on outpatient basis by hematology/oncology. Patient is status post second consultation therapy and he presented now with fever and hypotension pancytopenia and a picture of neutropenic sepsis with positive blood cultures for E. coli. Patient was initially admitted yesterday to the floor, however I was notified by the admitting physician about his condition and the patient was noted to be hypotensive requiring fluid boluses and for a short Time he required norepinephrine. Patient was transferred to the ICU and I am seeing him today on consultation. Patient was noted to be in no distress. Nonetheless he has been febrile since admission and his temp today is 102. Patient is tachycardic with a rate of 144. Blood pressure is 140/90 and his O2 saturation is 96% on 2 L nasal cannula. CBC showed pancytopenia with WBC count of 0.3 hemoglobin 6.5 platelets are 9000. Patient received so far 2 units of packed RBCs and 1 unit of platelets. Basic metabolic profile is normal however her bicarb is 14 BUN is 25 creatinine 1.51 lactic acid was 2.4 initially and today it is 1.3. Troponin was noted to be elevated at 1.970 C-reactive protein of 34 pro calcitonin of 65, chest x-ray showed no evidence of infiltrate on chest x-ray, minimal left basilar atelectasis is noted. Patient is presently on cefepime, vancomycin, and on Flagyl. Infectious disease is on board. Review of Systems CONSTITUTIONAL: As noted in HPI, patient presented with fevers chills. EYES: Negative ENT: Negative CARDIOVASCULAR: Negative, although his echocardiogram showed LV dysfunction with ejection fraction of 35% RESPIRATORY: Minimal shortness of breath no cough no wheezing GASTROINTESTINAL: Denies nausea vomiting abdominal pain or diarrhea MUSCULOSKELETAL: Generalized myalgia. NEUROLOGIC: Intermittent headaches ENDOCRINE: Negative GENITOURINARY: Negative HEMATOLOGIC: As noted in HPI DERMATOLOGY: Negative PSYCH: No symptoms of active depression Past Medical History Past Medical History: Cancer Additional Past Medical History / Comment(s): Pt recently admitted to [facility] on 05/07/22 with severe pancytopenia with mucous membrane bleeding. Other hx: AML, leukocytosis/thrombocytopenia, pancytopenia, coagulopathy/neuropenic fever, covid/pneumonia, anemia with blood transfusions. History of Any Multi-Drug Resistant Organisms: None Reported Past Surgical History: Adenoidectomy, Tonsillectomy Additional Past Surgical History / Comment(s): BMAs, picc line placed Past Anesthesia/Blood Transfusion Reactions: No Reported Reaction Past Psychological History: Anxiety Smoking Status: Never smoker - Past Family History Mother Family Medical History: Cancer Additional Family Medical History / Comment(s): breast CA Father Family Medical History: No Reported History Medications and Allergies Home Medications Medication Instructions Recorded Confirmed Type ALPRAZolam [Xanax] 0.5 mg PO TID PRN tab 03/27/22 06/14/22 Rx Cholecalciferol [Vitamin D3 (125 250 mcg PO DAILY #30 tab 03/27/22 06/14/22 Rx Mcg = 5000 Iu)] Acetaminophen Tab [Tylenol] 650 mg PO Q6HR PRN tab 04/29/22 06/14/22 Rx Acyclovir [Zovirax] 400 mg PO BID #60 tablet 04/29/22 06/14/22 Rx Ciprofloxacin HCl [Cipro] 500 mg PO DAILY 30 Days #30 tab 04/29/22 06/14/22 Rx bisacodyL [Dulcolax] 5 mg PO DAILY PRN tab 04/29/22 06/14/22 Rx hydrOXYzine HCL [Atarax] 25 mg PO QID PRN #45 tab 04/29/22 06/14/22 Rx Sennosides-Docusate Sodium 1 tab PO HS 05/07/22 06/14/22 History [Senokot-S] Famotidine [Pepcid] 20 mg PO HS tab 06/03/22 06/14/22 Rx Lidocaine Viscous 2% [Xylocaine 30 ml PO TID ml 06/03/22 06/14/22 Rx Viscous] Mag Hydrox/Al Hydrox/Simeth 30 ml PO TID ml 06/03/22 06/14/22 Rx [Maalox] prednisoLONE ACETATE 1% OPHTH 1 drops BOTH EYES QID ml 06/03/22 06/14/22 Rx [Pred Forte 1%] Allergies Allergy/AdvReac Type Severity Reaction Status Date / Time No Known Allergies Allergy Verified 06/14/22 12:46 Physical Exam Vitals: Vital Signs Temp Pulse Pulse Resp BP BP BP 06/15/22 13:20 102 F H 144 H 38 H 140/95 06/15/22 13:00 102 F H 147 H 38 H 140/95 06/15/22 12:23 101.3 F H 145 H 46 H 97/74 06/15/22 12:00 101.3 F H 142 H 47 H 101/88 06/15/22 11:00 134 H 37 H 128/90 06/15/22 10:44 99.9 F H 125 H 37 H 128/90 06/15/22 10:25 99.3 F 125 H 36 H 120/90 06/15/22 10:04 98.5 F 122 H 26 H 116/75 06/15/22 10:00 116 H 33 H 107/82 06/15/22 09:00 115 H 27 H 112/67 06/15/22 08:00 98.1 F 117 H 34 H 104/67 06/15/22 07:00 121 H 24 95/63 06/15/22 06:00 126 H 44 H 108/62 06/15/22 05:00 141 H 39 H 120/75 06/15/22 04:00 151 H 135 H 44 H 120/75 06/15/22 03:00 147 H 43 H 128/76 06/15/22 02:00 149 H 33 H 133/93 06/15/22 01:20 98.9 F 144 H 35 H 142/79 06/15/22 01:00 144 H 35 H 142/79 06/15/22 00:00 98.9 F 147 H 135 H 37 H 127/87 06/14/22 23:10 98.5 F 140 H 33 H 120/86 06/14/22 23:07 138 H 36 H 112/86 06/14/22 23:00 137 H 34 H 132/82 06/14/22 22:40 98.9 F 137 H 27 H 122/87 06/14/22 22:30 99.3 F 137 H 32 H 114/56 06/14/22 22:00 138 H 34 H 91/50 06/14/22 21:00 98.1 F 135 H 30 H 100/47 06/14/22 20:15 98.1 F 137 H 34 H 111/69 06/14/22 20:10 133 H 37 H 115/52 06/14/22 20:00 137 H 135 H 30 H 99/69 06/14/22 19:45 135 H 27 H 109/80 06/14/22 19:30 137 H 32 H 88/34 06/14/22 19:15 137 H 40 H 105/72 06/14/22 19:00 137 H 38 H 98/59 06/14/22 18:57 98.2 F 133 H 34 H 98/59 06/14/22 18:45 135 H 38 H 86/52 06/14/22 18:37 98.2 F 137 H 37 H 86/52 06/14/22 18:30 138 H 33 H 106/44 06/14/22 18:15 140 H 41 H 06/14/22 18:07 98.1 F 138 H 35 H 115/60 06/14/22 18:00 135 H 36 H 94/43 06/14/22 17:57 98.6 F 135 H 33 H 94/43 06/14/22 17:55 134 H 122 H 18 06/14/22 17:15 98.5 F 129 H 19 102/62 06/14/22 16:00 98.3 F 124 H 18 78/46 91/42 06/14/22 15:17 128 H 17 105/66 06/14/22 14:30 98.7 F 128 H 19 85/41 06/14/22 14:20 128 H 19 85/41 06/14/22 14:00 122 H 18 06/14/22 13:29 99.5 F 128 H 15 101/47 Pulse Ox 06/15/22 13:20 96 06/15/22 13:00 96 06/15/22 12:23 93 L 06/15/22 12:00 94 L 06/15/22 11:00 94 L 06/15/22 10:44 97 06/15/22 10:25 95 06/15/22 10:04 96 06/15/22 10:00 94 L 06/15/22 09:00 96 06/15/22 08:00 98 06/15/22 07:00 98 06/15/22 06:00 98 06/15/22 05:00 98 06/15/22 04:00 97 06/15/22 03:00 96 06/15/22 02:00 96 06/15/22 01:20 100 06/15/22 01:00 96 06/15/22 00:00 93 L 06/14/22 23:10 06/14/22 23:07 92 L 06/14/22 23:00 92 L 06/14/22 22:40 06/14/22 22:30 93 L 06/14/22 22:00 93 L 06/14/22 21:00 86 L 06/14/22 20:15 100 06/14/22 20:10 100 06/14/22 20:00 90 L 06/14/22 19:45 06/14/22 19:30 06/14/22 19:15 100 06/14/22 19:00 100 06/14/22 18:57 100 06/14/22 18:45 98 06/14/22 18:37 100 06/14/22 18:30 100 06/14/22 18:15 90 L 06/14/22 18:07 100 06/14/22 18:00 100 06/14/22 17:57 100 06/14/22 17:55 100 06/14/22 17:15 100 06/14/22 16:00 100 06/14/22 15:17 100 06/14/22 14:30 98 06/14/22 14:20 98 06/14/22 14:00 06/14/22 13:29 100 Intake and Output 06/14/22 06/15/22 06/15/22 22:59 06:59 14:59 Intake Total 1620 3188 1300 Output Total 782 649 360 Balance 310 3144 394 Intake: IV 400 1100 1100 Cefepime 2 gm In Sodium 100 Chloride 0.9% 100 ml @ 25 mls/hr IVPB Q8HR [facility] Rx# :[id number] Dextrose 5% in Water 1, 100 000 ml @ 50 mls/hr IV . Q23H [facility] with Sodium Bicarb (1 Meq/ml) 150 ml Rx#:[id number] Magnesium Sulfate-D5w Pmx 300 1 gm In Dextrose/Water 1 100ml.bag @ 100 mls/hr IVPB Q1H [facility] Rx#: [id number] Sodium Chloride 0.9% 1, 400 1100 450 000 ml @ 150 mls/hr IV . Q6H40M [facility] Rx#:[id number] Sodium Chloride 0.9% 500 50 ml 500 ml @ 25 mls/hr IV .Q20H [facility] Rx#:[id number] metroNIDAZOLE-NS PMX 500 100 mg In Saline 1 100ml.bag @ 100 mls/hr IVPB Q8H [facility] Rx#:[id number] Intake, IV Titration 500 1100 Amount Sodium Chloride 0.9% 1, 1000 000 ml @ 999 mls/hr IV . Q1H1M [facility] Rx#:[id number] Vancomycin 2,000 mg In 100 Sodium Chloride 0.9% 500 ml 500 ml @ 167 mls/hr IVPB ONCE [facility] Rx#: [id number] Vancomycin 2,000 mg In 500 Sodium Chloride 0.9% 500 ml 500 ml @ 167 mls/hr IVPB Q12H [facility] Rx#: [id number] Oral 100 300 Blood Product 620 688 200 Platelet Pheresis Pas 0 344 Psoralen Unit [id number] Platelet Pheresis Pas 0 Psoralen Unit [id number] Rc Irr As1 Unit 310 [id number] Rc Irr As1 Unit 200 [id number] Output: Urine 782 649 360 Other: Voiding Method Indwelling Catheter Indwelling Catheter # Bowel Movements 1 Weight 134.5 kg Physical Exam: Revealed a 27-year-old white male looks pale, in no distress. Head: Atraumatic, normocephalic. HEENT:[Neck is supple.] [No neck masses.] [No thyromegaly.] [No JVD.] Pale conjunctivae, no icterus. Chest: Symmetrical chest expansion, diminished breath sounds at the bases no rhonchi no wheezes..] Cardiac Exam: Distant S1 and S2, no S3 gallop, no murmur. Abdomen: Obese, [Soft, nontender, no megaly, no rebound, no guarding, normal bowel sounds.] Extremities: [No clubbing, no edema, no cyanosis.] Good pulses bilaterally. Neurological Exam: Alert and oriented 3. [No focal neurologic deficit.] Psychiatric: Normal mood, affect and normal mental status examination. Results - Laboratory Findings CBC and BMP: 06/15/22 05:41 06/15/22 05:41 Abnormal lab findings: Abnormal Labs 06/14/22 06/14/22 06/14/22 09:32 09:32 09:32 WBC 0.4 L* RBC 2.72 L Hgb 8.1 L D Hct 22.4 L RDW 17.3 H Plt Count 3 L* Sodium 133 L Potassium 3.4 L Chloride 97 L Carbon Dioxide 20 L BUN Creatinine 1.56 H Glucose 114 H POC Glucose (mg/dL) Plasma Lactic Acid Marcello 3.3 H* Calcium Magnesium 1.1 L Total Bilirubin Delta Bilirubin AST ALT Troponin I C-Reactive Protein 24.0 H Total Protein Albumin Procalcitonin Ur Specific [place] Urine Protein Urine Glucose (UA) Urine Ketones Urine Blood Urine RBC Urine WBC Hyaline Casts Urine Mucus Crossmatch 06/14/22 06/14/22 06/14/22 09:32 11:35 12:15 WBC RBC Hgb Hct RDW Plt Count Sodium Potassium Chloride Carbon Dioxide BUN Creatinine Glucose POC Glucose (mg/dL) Plasma Lactic Acid Marcello Calcium Magnesium Total Bilirubin Delta Bilirubin AST ALT Troponin I C-Reactive Protein Total Protein Albumin Procalcitonin 38.40 H Ur Specific [place] Urine Protein 2+ H Urine Glucose (UA) Trace H Urine Ketones 1+ H Urine Blood Small H Urine RBC 6 H Urine WBC 9 H Hyaline Casts 4 H Urine Mucus Few H Crossmatch See Detail 06/14/22 06/14/22 06/14/22 12:59 14:58 16:09 WBC 0.1 L* RBC 2.18 L Hgb 6.4 L* D Hct 18.6 L* RDW 16.9 H Plt Count 3 L* Sodium Potassium Chloride Carbon Dioxide BUN Creatinine Glucose POC Glucose (mg/dL) Plasma Lactic Acid Marcello 3.9 H* 4.9 H* Calcium Magnesium Total Bilirubin Delta Bilirubin AST ALT Troponin I C-Reactive Protein Total Protein Albumin Procalcitonin Ur Specific [place] Urine Protein Urine Glucose (UA) Urine Ketones Urine Blood Urine RBC Urine WBC Hyaline Casts Urine Mucus Crossmatch 06/14/22 06/14/22 06/14/22 18:26 19:37 19:37 WBC 0.1 L* RBC 2.41 L Hgb 7.2 L Hct 20.7 L RDW 17.4 H Plt Count 3 L* Sodium Potassium Chloride Carbon Dioxide BUN Creatinine Glucose POC Glucose (mg/dL) 118 H Plasma Lactic Acid Marcello 4.1 H* Calcium Magnesium Total Bilirubin Delta Bilirubin AST ALT Troponin I C-Reactive Protein Total Protein Albumin Procalcitonin Ur Specific [place] Urine Protein Urine Glucose (UA) Urine Ketones Urine Blood Urine RBC Urine WBC Hyaline Casts Urine Mucus Crossmatch 06/14/22 06/14/22 06/15/22 22:30 Unknown 02:35 WBC RBC Hgb Hct RDW Plt Count Sodium Potassium Chloride Carbon Dioxide BUN Creatinine Glucose POC Glucose (mg/dL) Plasma Lactic Acid Marcello 2.8 H* 2.4 H* Calcium Magnesium Total Bilirubin Delta Bilirubin AST ALT Troponin I C-Reactive Protein Total Protein Albumin Procalcitonin Ur Specific [place] 1.037 H Urine Protein 1+ H Urine Glucose (UA) Urine Ketones Trace H Urine Blood Urine RBC Urine WBC Hyaline Casts Urine Mucus Rare H Crossmatch 06/15/22 06/15/22 06/15/22 05:41 05:41 05:41 WBC 0.3 L* RBC 2.29 L Hgb 6.5 L* Hct 19.1 L* RDW 16.8 H Plt Count 9 L* D Sodium Potassium Chloride 110 H Carbon Dioxide 14 L BUN 25 H Creatinine 1.51 H Glucose 105 H POC Glucose (mg/dL) Plasma Lactic Acid Marcello Calcium 7.1 L Magnesium 1.1 L Total Bilirubin 1.4 H Delta Bilirubin 0.3 H AST 90 H ALT 84 H Troponin I C-Reactive Protein 34.0 H Total Protein 5.1 L Albumin 2.8 L Procalcitonin 65.30 H Ur Specific [place] Urine Protein Urine Glucose (UA) Urine Ketones Urine Blood Urine RBC Urine WBC Hyaline Casts Urine Mucus Crossmatch 06/15/22 05:41 WBC RBC Hgb Hct RDW Plt Count Sodium Potassium Chloride Carbon Dioxide BUN Creatinine Glucose POC Glucose (mg/dL) Plasma Lactic Acid Marcello Calcium Magnesium Total Bilirubin Delta Bilirubin AST ALT Troponin I 1.970 H* C-Reactive Protein Total Protein Albumin Procalcitonin Ur Specific [place] Urine Protein Urine Glucose (UA) Urine Ketones Urine Blood Urine RBC Urine WBC Hyaline Casts Urine Mucus Crossmatch - Diagnostic Findings Chest x-ray: image reviewed (No evidence of infiltrate.) Additional studies: Echocardiogram showed LV dysfunction with ejection fraction of 35% Assessment and Plan Assessment: Impression: Acute sepsis, possible septic shock. E. coli bacteremia Pancytopenia secondary to AML and chemotherapy Nonischemic cardiomyopathy and LV dysfunction most likely secondary to sepsis, however cardiomyopathy secondary to chemotherapy is not entirely ruled out. Elevated troponin secondary to sepsis Acute kidney injury secondary to sepsis Acute metabolic acidosis secondary to sepsis and secondary to acute kidney injury Recommendation: Continue to monitor in the ICU Continue transfusion of blood and platelets as recommended by lewis tology/oncology on the case. Continue broad-spectrum antibiotics including cefepime vancomycin and Flagyl for now. Hemodynamic support if necessary. Continue IV fluids however monitor for possible fluid overload since the patient has LV dysfunction with ejection fraction of 35%. Start bicarb drip at 50 mL per hour. And continue to monitor electrolytes and bicarb. Will closely monitor and follow in the ICU. Will hold on placement of a central line and arterial line for now, will try to manage with a midline. And peripheral IV access. Will consider a central access as the last resort Doses is relatively guarded, and the patient is critically ill. Time with Patient: Greater than 30
[2022-06-15 13:42] LABS: ABG Base Excess -6.5 mmol/L; ABG HCO3 17 mmol/L (21-25); ABG PCO2 24 mmHg (35-45); ABG PH 7.46 (7.35-7.45); ABG PO2 80 mmHg (83-108); ABG TCO2 18 mmol/L (19-24); Allen Test Performed? Yes
[2022-06-15 13:45] LABS: ABG Hematocrit 23 % (34.0-46.0)
[2022-06-15 13:53] LABS: Partial Thromboplastin Time 34.9 sec (22.0-30.0); Prothrombin Time 11.2 sec (9.0-12.0)
[2022-06-15 13:55] LABS: African American GFR (CKD) >90 (>60 ml/min/1.73 sqM); Anion Gap 13 mmol/L; Calcium 7.3 mg/dL (8.4-10.2); Carbon Dioxide 14 mmol/L (22-30); Chloride 110 mmol/L (98-107); Glucose 114 mg/dL (74-99); Non-African American GFR(CKD) 81 (>60 ml/min/1.73 sqM); Potassium 3.9 mmol/L (3.5-5.1); Sodium 137 mmol/L (137-145)
[2022-06-15 13:58] LABS: LDH 756 U/L (313-618); Phosphorus 2.5 mg/dL (2.5-4.5); Uric Acid 5.2 mg/dL (3.5-8.5)
--- NOTE | 2022-06-15 14:05 | XR ---
EXAMINATION TYPE: XR chest 1V portable DATE OF EXAM: 06/15/2022 Comparison: 06/14/2022 Clinical History: 27-year-old male CHF follow-up Findings: Heart upper limits of normal in size. Mild interstitial prominence may in part be due to magnificatio n from large body habitus. Some strandy atelectasis in the lower lungs. No consolidation or pleural e ffusion. Impression: Borderline heart size. Interstitial prominence probably technical. No airspace disease or john pulmo nary edema.
[2022-06-15 14:50] LABS: Blood Urea Nitrogen 25 mg/dL (9-20)
[2022-06-15 15:02] LABS: Ovalocytes Present; Tear Drop Cells Present
--- NOTE | 2022-06-15 16:00 | P.PN ---
Subjective Progress Note Date: 06/15/22 Pt was doing better this morning, but upon repeat evaluation in the afternoon, his HRs returned to 150s, and was 140/90 BP, Echo demonstrated global hypokinesis with EF 35%. BNP elevated at 6080, Trop at 1.79. Spiked several fevers during blood transfusions, now on standing offirmev. Rec'd 1U PRBC and additional unit PLTs, given repeat labs. Fluids slowed to 50cc/hr of bicarb gtt, calcium carbonate QID started for NAGMA with bicarb of 14. ABG shows metabolic acidosis with appropriately compensated respiratory alkalosis. CXR shows increased pulmonary vascularity. Pt rec'd 40mg IV lasix with good UOP. HRs improved from 150s to 130s, RR improved from 50s to 30s, patient reported no longer feeling labored. Gen: in no apparent distress, resting comfortably in bed Eyes: PERRL, no scleral injection or icterus HENT: normocephalic, atraumatic, good hearing acuity, moist mucous membranes Neck: no tracheal deviation, full range of motion Resp: good air exchange, breathing comfortably with no accessory muscle use, no tactile fremitus CVS: good distal perfusion x 4, no pitting edema GI: soft, NTTP, ND, no hepatosplenomegaly : no suprapubic tenderness, no CVAT, watkins catheter not present MSK: no clubbing, no cyanosis, no noted contractures of extremities Skin: no noted rashes, petechiae; temperature of skin is appropriate Neuro: moving all extremities without signs of weakness, CN II-XII intact Psych: cooperative, euthymic mood, insight and judgment intact Labs and imaging reviewed as above Assessment/plan: Septic shock Acute kidney injury Acute Systolic Heart Failure, EF 35%, secondary to sepsis vs less likely chemo- induced -Transfer to ICU, telemetry -Appreciate ICU, cardiology, infectious disease consultation -IV fluids -Levophed if required for MAP > 55 -Repeat labs: CBC tomorrow morning, basic metabolic panel tomorrow morning -Follow blood cultures = E coli, sensitivities pending -cefepime, can consider de-escalating vancomycin and flagyl if no new microbiological growth by tomorrow -Ordered: 1, 3, beta D glucan, galactomannan, repeat lactic acid -Patient may also benefit from G-CSF if septic shock worsens, defer to oncology -dose lasix PRN, keep SBP > 100, fluid restriction to 1200cc AML Pancytopenia -Hematology consult to follow -Transfuse for platelets less than 20 with fevers, or less than 10 -Transfuse for hemoglobin less than 7 -Patient will always require irradiated product Patient is full code DVT prophylaxis is on hold given low hemoglobin and low platelets I spent 45 minutes of critical care time with this patient, not including procedures today Objective - Vital Signs Vital signs: Vital Signs Temp 101.2 F H 06/15/22 14:00 Pulse 133 H 06/15/22 14:00 Resp 42 H 06/15/22 14:00 BP 130/92 06/15/22 14:00 Pulse Ox 96 06/15/22 14:00 FiO2 Intake & Output 06/14/22 06/15/22 06/15/22 18:59 06:59 18:59 Intake Total 0 4808 1350 Output Total 1431 710 Balance 0 3377 640 Weight 122.47 kg 134.5 kg Intake: IV 1500 1150 Cefepime 2 gm In Sodium 100 Chloride 0.9% 100 ml @ 25 mls/hr IVPB Q8HR [facility] Rx# :[id number] Dextrose 5% in Water 1, 150 000 ml @ 50 mls/hr IV . Q23H [facility] with Sodium Bicarb (1 Meq/ml) 150 ml Rx#:[id number] Magnesium Sulfate-D5w Pmx 300 1 gm In Dextrose/Water 1 100ml.bag @ 100 mls/hr IVPB Q1H [facility] Rx#: [id number] Sodium Chloride 0.9% 1, 1500 450 000 ml @ 150 mls/hr IV . Q6H40M [facility] Rx#:[id number] Sodium Chloride 0.9% 500 50 ml 500 ml @ 25 mls/hr IV .Q20H [facility] Rx#:[id number] metroNIDAZOLE-NS PMX 500 100 mg In Saline 1 100ml.bag @ 100 mls/hr IVPB Q8H [facility] Rx#:[id number] Intake, IV Titration 1600 Amount Sodium Chloride 0.9% 1, 1000 000 ml @ 999 mls/hr IV . Q1H1M [facility] Rx#:[id number] Vancomycin 2,000 mg In 100 Sodium Chloride 0.9% 500 ml 500 ml @ 167 mls/hr IVPB ONCE ONE Rx#: [id number] Vancomycin 2,000 mg In 500 Sodium Chloride 0.9% 500 ml 500 ml @ 167 mls/hr IVPB Q12H [facility] Rx#: [id number] Oral 400 Blood Product 0 1308 200 Platelet Pheresis Pas 344 Psoralen Unit [id number] Platelet Pheresis Pas 0 Psoralen Unit [id number] Rc Irr As1 Unit 0 310 [id number] Rc Irr As1 Unit 200 [id number] Output: Urine 1431 710 Other: Voiding Method Indwelling Catheter Indwelling Catheter Indwelling Catheter # Bowel Movements 1 - Labs CBC & Chem 7: 06/15/22 13:14 06/15/22 13:14 Labs: Abnormal Lab Results - Last 24 Hours (Table) 06/14/22 06/14/22 06/14/22 Range/Units 11:35 14:58 16:09 WBC 0.1 L* (3.8-10.6) k/uL RBC 2.18 L (4.30-5.90) m/uL Hgb 6.4 L* D (13.0-17.5) gm/dL Hct 18.6 L* (39.0-53.0) % RDW 16.9 H (11.5-15.5) % Plt Count 3 L* (150-450) k/uL APTT (22.0-30.0) sec Fibrinogen (200-500) mg/dL ABG pH (7.35-7.45) ABG pCO2 (35-45) mmHg ABG pO2 (83-108) mmHg ABG HCO3 (21-25) mmol/L ABG Total CO2 (19-24) mmol/L ABG O2 Saturation (94-97) % ABG Hematocrit (34.0-46.0) % Hemoglobin (13.0-17.5) gm/dL Chloride (98-107) mmol/L Carbon Dioxide (22-30) mmol/L BUN (9-20) mg/dL Creatinine (0.66-1.25) mg/dL Glucose (74-99) mg/dL POC Glucose (mg/dL) (70-110) mg/dL Plasma Lactic Acid Marcello 4.9 H* (0.7-2.0) mmol/L Calcium (8.4-10.2) mg/dL Magnesium (1.6-2.3) mg/dL Total Bilirubin (0.2-1.3) mg/dL Delta Bilirubin (0.0-0.2) mg/dL AST (17-59) U/L ALT (4-49) U/L Lactate Dehydrogenase (313-618) U/L Troponin I (0.000-0.034) ng/mL C-Reactive Protein (<1.0) mg/dL Total Protein (6.3-8.2) g/dL Albumin (3.5-5.0) g/dL Procalcitonin (0.02-0.09) ng/mL Ur Specific [place] (1.001-1.035) Urine Protein (Negative) Urine Ketones (Negative) Urine Mucus (None) /hpf Crossmatch See Detail 06/14/22 06/14/22 06/14/22 Range/Units 18:26 19:37 19:37 WBC 0.1 L* (3.8-10.6) k/uL RBC 2.41 L (4.30-5.90) m/uL Hgb 7.2 L (13.0-17.5) gm/dL Hct 20.7 L (39.0-53.0) % RDW 17.4 H (11.5-15.5) % Plt Count 3 L* (150-450) k/uL APTT (22.0-30.0) sec Fibrinogen (200-500) mg/dL ABG pH (7.35-7.45) ABG pCO2 (35-45) mmHg ABG pO2 (83-108) mmHg ABG HCO3 (21-25) mmol/L ABG Total CO2 (19-24) mmol/L ABG O2 Saturation (94-97) % ABG Hematocrit (34.0-46.0) % Hemoglobin (13.0-17.5) gm/dL Chloride (98-107) mmol/L Carbon Dioxide (22-30) mmol/L BUN (9-20) mg/dL Creatinine (0.66-1.25) mg/dL Glucose (74-99) mg/dL POC Glucose (mg/dL) 118 H (70-110) mg/dL Plasma Lactic Acid Marcello 4.1 H* (0.7-2.0) mmol/L Calcium (8.4-10.2) mg/dL Magnesium (1.6-2.3) mg/dL Total Bilirubin (0.2-1.3) mg/dL Delta Bilirubin (0.0-0.2) mg/dL AST (17-59) U/L ALT (4-49) U/L Lactate Dehydrogenase (313-618) U/L Troponin I (0.000-0.034) ng/mL C-Reactive Protein (<1.0) mg/dL Total Protein (6.3-8.2) g/dL Albumin (3.5-5.0) g/dL Procalcitonin (0.02-0.09) ng/mL Ur Specific [place] (1.001-1.035) Urine Protein (Negative) Urine Ketones (Negative) Urine Mucus (None) /hpf Crossmatch 06/14/22 06/14/22 06/15/22 Range/Units 22:30 Unknown 02:35 WBC (3.8-10.6) k/uL RBC (4.30-5.90) m/uL Hgb (13.0-17.5) gm/dL Hct (39.0-53.0) % RDW (11.5-15.5) % Plt Count (150-450) k/uL APTT (22.0-30.0) sec Fibrinogen (200-500) mg/dL ABG pH (7.35-7.45) ABG pCO2 (35-45) mmHg ABG pO2 (83-108) mmHg ABG HCO3 (21-25) mmol/L ABG Total CO2 (19-24) mmol/L ABG O2 Saturation (94-97) % ABG Hematocrit (34.0-46.0) % Hemoglobin (13.0-17.5) gm/dL Chloride (98-107) mmol/L Carbon Dioxide (22-30) mmol/L BUN (9-20) mg/dL Creatinine (0.66-1.25) mg/dL Glucose (74-99) mg/dL POC Glucose (mg/dL) (70-110) mg/dL Plasma Lactic Acid Marcello 2.8 H* 2.4 H* (0.7-2.0) mmol/L Calcium (8.4-10.2) mg/dL Magnesium (1.6-2.3) mg/dL Total Bilirubin (0.2-1.3) mg/dL Delta Bilirubin (0.0-0.2) mg/dL AST (17-59) U/L ALT (4-49) U/L Lactate Dehydrogenase (313-618) U/L Troponin I (0.000-0.034) ng/mL C-Reactive Protein (<1.0) mg/dL Total Protein (6.3-8.2) g/dL Albumin (3.5-5.0) g/dL Procalcitonin (0.02-0.09) ng/mL Ur Specific [place] 1.037 H (1.001-1.035) Urine Protein 1+ H (Negative) Urine Ketones Trace H (Negative) Urine Mucus Rare H (None) /hpf Crossmatch 06/15/22 06/15/22 06/15/22 Range/Units 05:41 05:41 05:41 WBC 0.3 L* (3.8-10.6) k/uL RBC 2.29 L (4.30-5.90) m/uL Hgb 6.5 L* (13.0-17.5) gm/dL Hct 19.1 L* (39.0-53.0) % RDW 16.8 H (11.5-15.5) % Plt Count 9 L* D (150-450) k/uL APTT (22.0-30.0) sec Fibrinogen (200-500) mg/dL ABG pH (7.35-7.45) ABG pCO2 (35-45) mmHg ABG pO2 (83-108) mmHg ABG HCO3 (21-25) mmol/L ABG Total CO2 (19-24) mmol/L ABG O2 Saturation (94-97) % ABG Hematocrit (34.0-46.0) % Hemoglobin (13.0-17.5) gm/dL Chloride 110 H (98-107) mmol/L Carbon Dioxide 14 L (22-30) mmol/L BUN 25 H (9-20) mg/dL Creatinine 1.51 H (0.66-1.25) mg/dL Glucose 105 H (74-99) mg/dL POC Glucose (mg/dL) (70-110) mg/dL Plasma Lactic Acid Marcello (0.7-2.0) mmol/L Calcium 7.1 L (8.4-10.2) mg/dL Magnesium 1.1 L (1.6-2.3) mg/dL Total Bilirubin 1.4 H (0.2-1.3) mg/dL Delta Bilirubin 0.3 H (0.0-0.2) mg/dL AST 90 H (17-59) U/L ALT 84 H (4-49) U/L Lactate Dehydrogenase (313-618) U/L Troponin I (0.000-0.034) ng/mL C-Reactive Protein 34.0 H (<1.0) mg/dL Total Protein 5.1 L (6.3-8.2) g/dL Albumin 2.8 L (3.5-5.0) g/dL Procalcitonin 65.30 H (0.02-0.09) ng/mL Ur Specific [place] (1.001-1.035) Urine Protein (Negative) Urine Ketones (Negative) Urine Mucus (None) /hpf Crossmatch 06/15/22 06/15/22 06/15/22 Range/Units 05:41 13:14 13:14 WBC (3.8-10.6) k/uL RBC (4.30-5.90) m/uL Hgb (13.0-17.5) gm/dL Hct (39.0-53.0) % RDW (11.5-15.5) % Plt Count (150-450) k/uL APTT 34.9 H (22.0-30.0) sec Fibrinogen 778 H (200-500) mg/dL ABG pH (7.35-7.45) ABG pCO2 (35-45) mmHg ABG pO2 (83-108) mmHg ABG HCO3 (21-25) mmol/L ABG Total CO2 (19-24) mmol/L ABG O2 Saturation (94-97) % ABG Hematocrit (34.0-46.0) % Hemoglobin (13.0-17.5) gm/dL Chloride (98-107) mmol/L Carbon Dioxide (22-30) mmol/L BUN (9-20) mg/dL Creatinine (0.66-1.25) mg/dL Glucose (74-99) mg/dL POC Glucose (mg/dL) (70-110) mg/dL Plasma Lactic Acid Marcello (0.7-2.0) mmol/L Calcium (8.4-10.2) mg/dL Magnesium (1.6-2.3) mg/dL Total Bilirubin (0.2-1.3) mg/dL Delta Bilirubin (0.0-0.2) mg/dL AST (17-59) U/L ALT (4-49) U/L Lactate Dehydrogenase 756 H (313-618) U/L Troponin I 1.970 H* (0.000-0.034) ng/mL C-Reactive Protein (<1.0) mg/dL Total Protein (6.3-8.2) g/dL Albumin (3.5-5.0) g/dL Procalcitonin (0.02-0.09) ng/mL Ur Specific [place] (1.001-1.035) Urine Protein (Negative) Urine Ketones (Negative) Urine Mucus (None) /hpf Crossmatch 06/15/22 06/15/22 06/15/22 Range/Units 13:14 13:14 13:40 WBC 0.3 L* (3.8-10.6) k/uL RBC 2.53 L (4.30-5.90) m/uL Hgb 7.6 L (13.0-17.5) gm/dL Hct 21.6 L (39.0-53.0) % RDW 17.2 H (11.5-15.5) % Plt Count 11 L* (150-450) k/uL APTT (22.0-30.0) sec Fibrinogen (200-500) mg/dL ABG pH 7.46 H (7.35-7.45) ABG pCO2 24 L (35-45) mmHg ABG pO2 80 L (83-108) mmHg ABG HCO3 17 L (21-25) mmol/L ABG Total CO2 18 L (19-24) mmol/L ABG O2 Saturation 98.0 H (94-97) % ABG Hematocrit 23 L (34.0-46.0) % Hemoglobin 7.6 L (13.0-17.5) gm/dL Chloride 110 H (98-107) mmol/L Carbon Dioxide 14 L (22-30) mmol/L BUN 25 H (9-20) mg/dL Creatinine (0.66-1.25) mg/dL Glucose 114 H (74-99) mg/dL POC Glucose (mg/dL) (70-110) mg/dL Plasma Lactic Acid Marcello (0.7-2.0) mmol/L Calcium 7.3 L (8.4-10.2) mg/dL Magnesium (1.6-2.3) mg/dL Total Bilirubin (0.2-1.3) mg/dL Delta Bilirubin (0.0-0.2) mg/dL AST (17-59) U/L ALT (4-49) U/L Lactate Dehydrogenase (313-618) U/L Troponin I (0.000-0.034) ng/mL C-Reactive Protein (<1.0) mg/dL Total Protein (6.3-8.2) g/dL Albumin (3.5-5.0) g/dL Procalcitonin (0.02-0.09) ng/mL Ur Specific [place] (1.001-1.035) Urine Protein (Negative) Urine Ketones (Negative) Urine Mucus (None) /hpf Crossmatch Microbiology - Last 24 Hours (Table) 06/14/22 09:32 Blood Culture Gram Stain - Preliminary Blood 06/14/22 09:32 Blood Culture Gram Stain - Preliminary Blood Blood Culture - Final Escherichia coli 06/14/22 09:32 Blood Culture - Final Blood 06/14/22 15:40 Catheter Tip Culture - Preliminary Picc Line 06/14/22 18:30 Urine Culture - Preliminary Urine,Catheterized 06/14/22 09:32 Blood Culture - Final Blood
[2022-06-15] MEDS: CALCIUM CARBONATE 500 MG CHEWABLE PO SCH ×3 (16:58→21:00)
[2022-06-15] MEDS ORDERED: FUROSEMIDE 10 MG/ML 2 ML VIAL IV ONE (17:36)
[2022-06-15] MEDS: ALPRAZolam 0.5 MG TAB PO PRN (17:47)
[2022-06-15] MEDS ORDERED: FUROSEMIDE 10 MG/ML 4 ML VIAL IV ONE (18:30)
[2022-06-15] MEDS: FILGRASTIM-SNDZ 480 MCG/0.8 ML SYRINGE SQ SCH (19:08)
--- NOTE | 2022-06-15 19:56 | CT ---
EXAMINATION TYPE: CT chest angio for PE DATE OF EXAM: 06/14/2022 COMPARISON: Chest x-ray 06/15/2022, 90 04/26/2022 HISTORY: Chest pain and dyspnea CT DLP: 753.3 mGycm Automated exposure control for dose reduction was used. CONTRAST: CT Chest for pulmonary embolism performed with with IV Contrast, patient injected with 80 mL of Isovu e 370. Three-dimensional reconstructions were performed on an alternate workstation FINDINGS: There is artifact over the exam. LUNGS: The lungs are remarkable for some probable basilar atelectatic changes, no evident airspace di sease. There is no pleural effusion or pneumothorax seen. The tracheobronchial tree is patent. MEDIASTINUM: There is satisfactory enhancement of the pulmonary artery and its branches, there is no CT evidence for pulmonary embolism. There are no greater than 1 cm hilar or mediastinal lymph nodes. No pericardial effusion is seen. AORTA: No additional significant abnormality is seen. OTHER: The spleen is enlarged, liver shows low attenuation possibly due to hepatic steatosis. IMPRESSION: No evident pulmonary embolism. Splenomegaly and possible hepatic steatosis.
--- NOTE | 2022-06-15 19:59 | XR ---
EXAMINATION TYPE: XR chest 1V portable DATE OF EXAM: 06/14/2022 COMPARISON: Chest x-ray 06/14/2022 HISTORY: Chest pain, dyspnea TECHNIQUE: Single frontal view of the chest is obtained. FINDINGS: Lung volumes are low. Right-sided PICC line is present, distal tip overlying superior vena cava. There is no focal air space opacity, pleural effusion, or pneumothorax seen. The cardiac silh ouette size is within normal limits. The osseous structures are intact. IMPRESSION: No acute process.
[2022-06-15] MEDS: SENNOSIDES-DOCUSATE SODIUM 1 EACH TAB PO SCH (20:25)
[2022-06-15] MEDS: FAMOTIDINE 20 MG TAB PO SCH (21:00)
--- NOTE | 2022-06-15 21:05 | US ---
EXAMINATION TYPE: US kidneys/renal and bladder DATE OF EXAM: 06/15/2022 COMPARISON: NONE CLINICAL HISTORY: HOSEA in male, metabolic acidosis. HOSEA EXAM MEASUREMENTS: Right Kidney: 10.7 x 4.8 x 4.8 cm Left Kidney: 12.0 x 6.0 x 4.9 cm Limitations, ICU patient, large amount of overlying bowel content Right Kidney: lower pole obscured, no evidence of hydronephrosis Left Kidney: no evidence of hydronephrosis Bladder: Gallegos Catheter partially decompresses the urinary bladder. IMPRESSION: 1. No suspicious renal ultrasound abnormality. 2. Limited urinary bladder evaluation due to catheterized urinary bladder.
--- NOTE | 2022-06-15 21:09 | XR ---
EXAMINATION TYPE: XR chest 2V DATE OF EXAM: 06/14/2022 COMPARISON: 03/23/2022 INDICATION: Fever TECHNIQUE: Frontal and lateral views of the chest are obtained. FINDINGS: The heart size is normal. The pulmonary vasculature is normal. There may be some minimal left lower lobe infiltrate developing. Correlate for atelectasis or pneumon ia. Follow-up can be performed. IMPRESSION: 1. Clinical consideration for developing left lower lobe atelectasis or pneumonia
[2022-06-15] MEDS ORDERED: ALPRAZolam 0.5 MG TAB PO STA (22:33)
[2022-06-15] MEDS ORDERED: SODIUM CHLORIDE 0.9% 500 ML 500 ML IV ONE (22:33)
[2022-06-16] MEDS ORDERED: SODIUM CHLORIDE 0.9% 500 ML 500 ML IV ONE (00:32)
[2022-06-16] MEDS ORDERED: SODIUM BICARB 8.4% 50 ML SYR (1 MEQ/ML) IV STA (00:32)
[2022-06-16] MEDS: metroNIDAZOLE-NS PMX 500 MG in SALINE 1 100ML.BAG IVPB SCH ×3 (00:41→16:34)
[2022-06-16] MEDS: NOREPINEPHRINE 4 MG in SODIUM CHLORIDE 0.9% 250 ML IV SCH (01:08)
[2022-06-16 03:03] LABS: Anisocytosis Slight; HCT 22.1 % (39.0-53.0); HGB 7.5 gm/dL (13.0-17.5); MCH 28.5 pg (25.0-35.0); MCHC 33.7 g/dL (31.0-37.0); MCV 84.6 fL (80.0-100.0); Mean Platelet Volume 8.6; Poikilocytosis Slight; RBC 2.61 m/uL (4.30-5.90); RDW 16.9 % (11.5-15.5)
[2022-06-16 03:16] LABS: Platelet Count 12 k/uL (150-450)
[2022-06-16 03:17] LABS: WBC 0.4 k/uL (3.8-10.6)
[2022-06-16 03:33] LABS: ABG Base Excess -2.8 mmol/L; ABG HCO3 22 mmol/L (21-25); ABG Oxygen Saturation 98.5 % (94-97); ABG PCO2 38 mmHg (35-45); ABG PH 7.38 (7.35-7.45); ABG PO2 99 mmHg (83-108); ABG TCO2 23 mmol/L (19-24); Allen Test Performed? Yes
[2022-06-16 03:33] LABS: African American GFR (CKD) >90 (>60 ml/min/1.73 sqM); Non-African American GFR(CKD) >90 (>60 ml/min/1.73 sqM); Total Bilirubin 1.1 mg/dL (0.2-1.3); Total Protein 5.4 g/dL (6.3-8.2)
[2022-06-16 03:36] LABS: ABG Hematocrit 22 % (34.0-46.0)
[2022-06-16 03:41] LABS: ALT 185 U/L (4-49); AST 201 U/L (17-59); Alkaline Phosphatase 47 U/L (38-126); Anion Gap 12 mmol/L; Blood Urea Nitrogen 23 mg/dL (9-20); Calcium 7.7 mg/dL (8.4-10.2); Carbon Dioxide 20 mmol/L (22-30); Chloride 105 mmol/L (98-107); Glucose 111 mg/dL (74-99); LDH 928 U/L (313-618); Magnesium 1.9 mg/dL (1.6-2.3); Phosphorus 3.1 mg/dL (2.5-4.5); Potassium 3.5 mmol/L (3.5-5.1); Sodium 137 mmol/L (137-145); Uric Acid 5.9 mg/dL (3.5-8.5)
[2022-06-16 03:44] LABS: Poikilocytosis (M) Present; Polychromasia Present
--- NOTE | 2022-06-16 03:47 | XR ---
EXAMINATION TYPE: XR chest 1V portable DATE OF EXAM: 06/16/2022 COMPARISON: NONE HISTORY: Hypoxemia TECHNIQUE: Single view FINDINGS: There is pulmonary interstitial edema. Heart size is normal. There are chest leads. Bony th orax is intact IMPRESSION: There is some pulmonary interstitial edema which is new compared to exam yesterday.
[2022-06-16] MEDS: DEXMEDETOMIDINE/0.9% NACL(PMX) 400 MCG in EMPTY BAG 1 BAG IV SCH ×2 (04:14→18:24)
[2022-06-16] MEDS: MAGNESIUM SULFATE-D5W PMX 1 GM in DEXTROSE/WATER 1 100ML.BAG IVPB SCH ×2 (05:36→06:47)
[2022-06-16] MEDS: ACETAMINOPHEN IV (For NPO) 1,000 MG in EMPTY BAG 1 BAG IVPB SCH (05:36)
[2022-06-16] MEDS: POTASSIUM CHLORIDE ER 20 MEQ TAB.ER PO SCH (05:42)
[2022-06-16] MEDS: POTASSIUM CHLORIDE 10 MEQ in WATER FOR INJECTION 1 100ML.BAG IVPB SCH ×4 (05:48→12:04)
[2022-06-16] MEDS ORDERED: FUROSEMIDE 10 MG/ML 2 ML VIAL IV ONE (08:00)
[2022-06-16] MEDS: CEFEPIME 2 GM in SODIUM CHLORIDE 0.9% 100 ML IVPB SCH ×2 (08:27→16:33)
[2022-06-16] MEDS: prednisoLONE ACETATE 1% OPHTH DROPS 5 ML BTL BOTH EYES SCH ×4 (08:49→20:51)
[2022-06-16] MEDS: SODIUM CHLORIDE 0.9% 500 ML 500 ML IV SCH (08:50)
[2022-06-16] MEDS: METOPROLOL SUCCINATE (ER) 25 MG TAB.ER.24H PO SCH (08:52)
[2022-06-16] MEDS: CHOLECALCIFEROL 125 MCG (5000 IU) TABLET PO SCH (08:52)
[2022-06-16] MEDS: ACYCLOVIR 200 MG CAP PO SCH ×2 (08:52→20:51)
[2022-06-16] MEDS ORDERED: propofoL 100 ML IV ONE (09:12)
[2022-06-16] MEDS ORDERED: CISATRACURIUM 2 MG/ML 5 ML VIAL IV ONE ×2 (09:52→14:15)
--- NOTE | 2022-06-16 10:01 | XR ---
EXAMINATION TYPE: XR chest 1V portable DATE OF EXAM: 06/16/2022 COMPARISON: from earlier in the day HISTORY: Tube placement TECHNIQUE: Single frontal view of the chest is obtained. FINDINGS: Endotracheal tube is within the right mainstem bronchus. There is now complete opacification left hem ithorax. NG tube is seen coursing into the stomach. IMPRESSION: 1. Endotracheal tube must be repositioned.
--- NOTE | 2022-06-16 10:02 | XR ---
EXAMINATION TYPE: XR chest 1V portable DATE OF EXAM: 06/16/2022 COMPARISON: 2am HISTORY: Endotracheal tube repositioned. TECHNIQUE: Single frontal view of the chest is obtained. FINDINGS: Endotracheal tube has been repositioned however several distal tip remains at the origin of the right mainstem bronchus and should be pulled back approximately 5 cm. There is improved aeration throughou t the left lung with mild left lower lobe infiltrate or atelectasis seen. No evidence for mediastinal shift. NG tube unchanged in position. IMPRESSION: 1. Endotracheal tube should be pulled back approximately 5 cm.
--- NOTE | 2022-06-16 10:03 | XR ---
EXAMINATION TYPE: XR chest 1V portable DATE OF EXAM: 06/16/2022 COMPARISON: Earlier in the day HISTORY: ET tube repositioning TECHNIQUE: Single frontal view of the chest is obtained. FINDINGS: Endotracheal tube has been repositioned and is approximately 7 mm from the cris. The endotracheal t ube should be pulled back approximately 4.8 cm. The chest remains unchanged. IMPRESSION: 1. Endotracheal tube should be repositioned as noted above.
--- NOTE | 2022-06-16 10:05 | XR ---
EXAMINATION TYPE: XR chest 1V portable DATE OF EXAM: 06/16/2022 COMPARISON: Earlier in the day HISTORY: ET tube repositioning TECHNIQUE: Single frontal view of the chest is obtained. FINDINGS: The endotracheal tube is 2.6 cm from the cris and is appropriately placed at this time. There is pe rsistent left lower lobe infiltrate and/or atelectasis with small effusion. NG tube is seen coursing into the stomach. The right lung is clear. IMPRESSION: 1. Appropriate placement of endotracheal tube.
[2022-06-16 10:25] LABS: ABG Base Excess -3.3 mmol/L; ABG HCO3 23 mmol/L (21-25); ABG Oxygen Saturation 99.8 % (94-97); ABG PCO2 42 mmHg (35-45); ABG PH 7.34 (7.35-7.45); ABG PO2 160 mmHg (83-108); ABG TCO2 24 mmol/L (19-24)
[2022-06-16 10:27] LABS: ABG Hematocrit 20 % (34.0-46.0); Allen Test Performed? no
[2022-06-16] MEDS: DEXTROSE 5% IN WATER 1,000 ML with SODIUM BICARB (1 MEQ/ML) 150 ML IV SCH (10:34)
[2022-06-16 11:27] VITALS: BMI 40.7
[2022-06-16 12:05] LABS: Glucose,Whole Blood 134 mg/dL (70-110)
--- NOTE | 2022-06-16 12:12 | P.PN ---
Subjective Progress Note Date: 06/16/22 27-year-old man with a medical history of AML currently undergoing consolidation therapy, recurrent neutropenic fever presented with fevers, low blood count. Consult to see the patient for cardiomyopathy. Patient is found to have positive blood cultures with E. coli from the PICC line. He had an echoc ardiogram which showed a severely decreased LV function with an EF of 35% without vegetation on the mitral and aortic valves. Patient's troponin was positive at 1.97. most likly to be secondary due to sepsis. Due to thrombocytopenia will hold off on anticoagulation. Cardiology is believed to be secondary to sepsis and increased renal function. It is unlikely that the patient this age to have cardiomyopathy secondary to coronary artery disease. Patient is examined today intubated and sedated. Early this morning patient became unresponsive and went into respiratory distress believed to be secondary to sepsis. At this time is Levophed is on hold and he is maintaining blood pressure. Titrate Levophed as tolerated by blood pressure. Patient's hemoglobin is 7.5 today BUN 23 creatinine 1 AST 20 ALT 185 BNP increased to 32,000. Patient's acute systolic congestive heart failure secondary to sepsis, severe anemia, and cardiomyopathy. Continue with IV Lasix as needed. Objective - Vital Signs Vital signs: Vital Signs Temp 99.8 F H 06/16/22 04:00 Pulse 129 H 06/16/22 07:00 Resp 42 H 06/16/22 07:00 BP 109/56 06/16/22 07:00 Pulse Ox 94 L 06/16/22 07:00 FiO2 100 06/16/22 09:32 Intake & Output 06/15/22 06/16/22 06/16/22 18:59 06:59 18:59 Intake Total 2624 2417.819 17.764 Output Total 1812 1387 60 Balance 812 1030.819 -42.236 Weight 132.4 kg Intake: IV 1600 2400 ACETAMINOPHEN IV (For NPO 100 ) 1,000 mg In Empty Bag 1 bag @ 400 mls/hr IVPB ONCE ONE Rx#:[id number] ACETAMINOPHEN IV (For NPO 100 ) 1,000 mg In Empty Bag 1 bag @ 400 mls/hr IVPB Q6HR [facility] Rx#:[id number] Cefepime 2 gm In Sodium 200 100 Chloride 0.9% 100 ml @ 25 mls/hr IVPB Q8HR [facility] Rx# :[id number] Dextrose 5% in Water 1, 400 800 000 ml @ 50 mls/hr IV . Q23H [facility] with Sodium Bicarb (1 Meq/ml) 150 ml Rx#:[id number] Magnesium Sulfate-D5w Pmx 300 100 1 gm In Dextrose/Water 1 100ml.bag @ 100 mls/hr IVPB Q1H [facility] Rx#: [id number] Potassium Chloride 10 meq 100 In Water For Injection 1 100ml.bag @ 100 mls/hr IVPB Q1HR [facility] Rx#: [id number] Sodium Chloride 0.9% 1, 450 000 ml @ 150 mls/hr IV . Q6H40M [facility] Rx#:[id number] Sodium Chloride 0.9% 500 50 ml 500 ml @ 25 mls/hr IV .Q20H [facility] Rx#:[id number] Sodium Chloride 0.9% 500 1000 ml 500 ml @ 999 mls/hr IV .Q31M [facility] Rx#:[id number] metroNIDAZOLE-NS PMX 500 200 100 mg In Saline 1 100ml.bag @ 100 mls/hr IVPB Q8H [facility] Rx#:[id number] Intake, IV Titration 17.819 17.764 Amount Dexmedetomidine/0.9% NaCl 17.819 17.764 (Pmx) 400 mcg In Empty Bag 1 bag @ 0.2 MCG/KG/HR 6.62 mls/hr IV .Q15H7M [facility] Rx#:[id number] Oral 250 Tube Feeding 200 Blood Product 574 Platelet Pheresis Pas 374 Psoralen Unit [id number] Rc Irr As1 Unit 200 [id number] Output: Urine 1810 1385 60 Stool 2 2 Other: Voiding Method Indwelling Catheter Indwelling Catheter - Exam PHYSICAL EXAM: VITAL SIGNS: Reviewed. GENERAL: Well-developed in no acute distress. HEENT: Head is normocephalic. Pupils are equal, round. Sclerae anicteric. Mucous membranes of the mouth are moist. NECK: Supple. No JVD or thyromegaly RESPIRATORY: Mechanically ventilated CARDIO: Regular rate and rhythm. S1 and S2 heard. No murmur or gallops. EXTREMITIES: Normal range of motion. No clubbing or cyanosis. Peripheral pulses intact. Negative for bilateral lower extremity edema NEURO: Sedated - Labs CBC & Chem 7: 06/16/22 02:43 06/16/22 02:43 Labs: Abnormal Lab Results - Last 24 Hours (Table) 06/14/22 06/15/22 06/15/22 Range/Units 11:35 05:41 12:42 WBC (3.8-10.6) k/uL RBC (4.30-5.90) m/uL Hgb (13.0-17.5) gm/dL Hct (39.0-53.0) % RDW (11.5-15.5) % Plt Count (150-450) k/uL APTT (22.0-30.0) sec Fibrinogen (200-500) mg/dL ABG pH (7.35-7.45) ABG pCO2 (35-45) mmHg ABG pO2 (83-108) mmHg ABG HCO3 (21-25) mmol/L ABG Total CO2 (19-24) mmol/L ABG O2 Saturation (94-97) % ABG Hematocrit (34.0-46.0) % Hemoglobin (13.0-17.5) gm/dL Chloride (98-107) mmol/L Carbon Dioxide (22-30) mmol/L BUN (9-20) mg/dL Glucose (74-99) mg/dL Calcium (8.4-10.2) mg/dL AST (17-59) U/L ALT (4-49) U/L Lactate Dehydrogenase (313-618) U/L Troponin I 1.970 H* (0.000-0.034) ng/mL Total Protein (6.3-8.2) g/dL Albumin (3.5-5.0) g/dL Procalcitonin (0.02-0.09) ng/mL Ur Random Sodium <20 L (40-220) mmol/L Crossmatch See Detail 06/15/22 06/15/22 06/15/22 Range/Units 13:14 13:14 13:14 WBC 0.3 L* (3.8-10.6) k/uL RBC 2.53 L (4.30-5.90) m/uL Hgb 7.6 L (13.0-17.5) gm/dL Hct 21.6 L (39.0-53.0) % RDW 17.2 H (11.5-15.5) % Plt Count 11 L* (150-450) k/uL APTT 34.9 H (22.0-30.0) sec Fibrinogen 778 H (200-500) mg/dL ABG pH (7.35-7.45) ABG pCO2 (35-45) mmHg ABG pO2 (83-108) mmHg ABG HCO3 (21-25) mmol/L ABG Total CO2 (19-24) mmol/L ABG O2 Saturation (94-97) % ABG Hematocrit (34.0-46.0) % Hemoglobin (13.0-17.5) gm/dL Chloride (98-107) mmol/L Carbon Dioxide (22-30) mmol/L BUN (9-20) mg/dL Glucose (74-99) mg/dL Calcium (8.4-10.2) mg/dL AST (17-59) U/L ALT (4-49) U/L Lactate Dehydrogenase 756 H (313-618) U/L Troponin I (0.000-0.034) ng/mL Total Protein (6.3-8.2) g/dL Albumin (3.5-5.0) g/dL Procalcitonin (0.02-0.09) ng/mL Ur Random Sodium (40-220) mmol/L Crossmatch 06/15/22 06/15/22 06/16/22 Range/Units 13:14 13:40 02:43 WBC (3.8-10.6) k/uL RBC (4.30-5.90) m/uL Hgb (13.0-17.5) gm/dL Hct (39.0-53.0) % RDW (11.5-15.5) % Plt Count (150-450) k/uL APTT (22.0-30.0) sec Fibrinogen (200-500) mg/dL ABG pH 7.46 H (7.35-7.45) ABG pCO2 24 L (35-45) mmHg ABG pO2 80 L (83-108) mmHg ABG HCO3 17 L (21-25) mmol/L ABG Total CO2 18 L (19-24) mmol/L ABG O2 Saturation 98.0 H (94-97) % ABG Hematocrit 23 L (34.0-46.0) % Hemoglobin 7.6 L (13.0-17.5) gm/dL Chloride 110 H (98-107) mmol/L Carbon Dioxide 14 L (22-30) mmol/L BUN 25 H (9-20) mg/dL Glucose 114 H (74-99) mg/dL Calcium 7.3 L (8.4-10.2) mg/dL AST (17-59) U/L ALT (4-49) U/L Lactate Dehydrogenase (313-618) U/L Troponin I (0.000-0.034) ng/mL Total Protein (6.3-8.2) g/dL Albumin (3.5-5.0) g/dL Procalcitonin 33.10 H (0.02-0.09) ng/mL Ur Random Sodium (40-220) mmol/L Crossmatch 06/16/22 06/16/22 06/16/22 Range/Units 02:43 02:43 02:49 WBC 0.4 L* (3.8-10.6) k/uL RBC 2.61 L (4.30-5.90) m/uL Hgb 7.5 L (13.0-17.5) gm/dL Hct 22.1 L (39.0-53.0) % RDW 16.9 H (11.5-15.5) % Plt Count 12 L* (150-450) k/uL APTT (22.0-30.0) sec Fibrinogen (200-500) mg/dL ABG pH (7.35-7.45) ABG pCO2 (35-45) mmHg ABG pO2 (83-108) mmHg ABG HCO3 (21-25) mmol/L ABG Total CO2 (19-24) mmol/L ABG O2 Saturation 98.5 H (94-97) % ABG Hematocrit 22 L (34.0-46.0) % Hemoglobin 7.3 L (13.0-17.5) gm/dL Chloride (98-107) mmol/L Carbon Dioxide 20 L (22-30) mmol/L BUN 23 H (9-20) mg/dL Glucose 111 H (74-99) mg/dL Calcium 7.7 L (8.4-10.2) mg/dL AST 201 H (17-59) U/L ALT 185 H (4-49) U/L Lactate Dehydrogenase 928 H (313-618) U/L Troponin I (0.000-0.034) ng/mL Total Protein 5.4 L (6.3-8.2) g/dL Albumin 3.0 L (3.5-5.0) g/dL Procalcitonin (0.02-0.09) ng/mL Ur Random Sodium (40-220) mmol/L Crossmatch Microbiology - Last 24 Hours (Table) 06/15/22 05:41 Blood Culture - Preliminary Blood No Growth after 24 hours 06/15/22 11:06 Stool Culture - Preliminary Stool 06/14/22 18:30 Urine Culture - Final Urine,Catheterized 06/14/22 09:32 Blood Culture Gram Stain - Preliminary Blood 06/14/22 09:32 Blood Culture Gram Stain - Preliminary Blood Blood Culture - Final Escherichia coli Assessment and Plan Assessment: Nonischemic cardiomyopathy secondary to sepsis infection Elevated troponin secondary to sepsis and renal function Acute systolic congestive heart failure secondary to sepsis, severe anemia, and cardiomyopathy Acute respiratory distress requiring mechanical ventilation Plan: Continue to tolerate Levophed as tolerated by blood pressure Continue Toprol-XL 25 mg Continue with Lasix as needed Once renal function improves will consider starting ELPIDIO inhibitor Will continue to hold initiation of anticoagulations due to thrombocythemia Further recommendations based on clinical course The above impression and plan of care have been discussed and directed by the signing physician. Michelle Magallanes, nurse practitioner, acting as scribe for signing physician.
[2022-06-16] MEDS ORDERED: NOREPINEPHRINE 32 MG in SODIUM CHLORIDE 0.9% 218 ML IV SCH (12:15)
[2022-06-16] MEDS: IPRATROPIUM-ALBUTEROL 3 ML NEB INHALATION SCH ×3 (12:19→18:59)
--- NOTE | 2022-06-16 13:14 | P.PN ---
Subjective Progress Note Date: 06/16/22 Principal diagnosis: Acute hypoxic respiratory failure secondary to sepsis and septic shock with pancytopenia, chemotherapy induced for AML. 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 His presenting symptoms at that time were mostly leukocytosis thrombocytopenia and peripheral blasts. Bone marrow on 02/25/22 revealed AML, 80-90% blasts. Trisomy 21, NGS negative for any other genomic alterations. Patient underwent induction therapy 7+3 regimen, patient developed Coumadin infection during that hospitalization. Repeat bone marrow on 03/30 revealed a complete response. Patient received his first consolidation therapy and has been followed on outpatient basis by hematology/oncology. Patient is status post second consultation therapy and he presented now with fever and hypotension pancytopenia and a picture of neutropenic sepsis with positive blood cultures for E. coli. Patient was initially admitted yesterday to the floor, however I was notified by the admitting physician about his condition and the patient was noted to be hypotensive requiring fluid boluses and for a short Time he required norepinephrine. Patient was transferred to the ICU and I am seeing him today on consultation. Patient was noted to be in no distress. Nonetheless he has been febrile since admission and his temp today is 102. Patient is tachycardic with a rate of 144. Blood pressure is 140/90 and his O2 saturation is 96% on 2 L nasal cannula. CBC showed pancytopenia with WBC count of 0.3 hemoglobin 6.5 platelets are 9000. Patient received so far 2 units of packed RBCs and 1 unit of platelets. Basic metabolic profile is normal however her bicarb is 14 BUN is 25 creatinine 1.51 lactic acid was 2.4 initially and tod ay it is 1.3. Troponin was noted to be elevated at 1.970 C-reactive protein of 34 pro calcitonin of 65, chest x-ray showed no evidence of infiltrate on chest x-ray, minimal left basilar atelectasis is noted. Patient is presently on cefepime, vancomycin, and on Flagyl. Infectious disease is on board. Reevaluated today on 06/16/2022, over the last 24 hours, the patient has taken a worsening clinical course. His ABG overnight was basically unremarkable. Patient was noted to be tachycardic and tachypneic overnight, and ABG did not reflect the clear clinical picture because it was basically normal. However when I evaluated the patient this morning, patient was noted to be obtunded, tachycardic, tachypneic, and he is having very shallow breathing. Recommended immediate intubation of the patient and this was done by P[facility] SALTER. ABG post intubation showed a pO2 of 160 pCO2 42 pH of 7.34. This was on 40% FiO2, assist control rate of 20, volume is 500 and PEEP of 5. ABG from earlier this morning before intubation showed a pO2 of 99 pCO2 38 pH of 7.38 and this was on nasal cannula. Chest x-ray early this morning prior to intubation showed mild interstitial edema patient did receive Lasix earlier. And he had a good urine output especially after he was intubated. Chest x-ray after immediate intubation showed endotracheal tube in the right mainstem bronchus and with opacification of the left lung, hence the endotracheal tube was adjusted and follow-up chest x-ray showed adequate reexpansion of the left lung except for left lower lobe atelectasis and the tube at this point is to see him above the cris, left lower lobe atelectasis persisted with a small effusion noted in spite of adequate placement of the endotracheal tube. No clear-cut evidence of pulmonary edema post intubation. Patient put out a significant amount of urine after intubation and Lasix given, and he has now minimal positive fluid balance. 274 mL. Clearly the patient responded quite well to Lasix after intubation. Hence we'll hold on the Lasix for now unless we noticed worsening in his oxygenation or worsening in his chest x-ray. Or drop in his urine output. Post intubation, patient had to be placed on relatively high dose of propofol to keep sedated and calm. Last night when the patient was placed on Precedex, it was not helpful one bit. Hence the patient will not benefit from Precedex at this point and will not try to use it again. As far as his LV function is concerned, patient may be considered for Dobutrex, however with his tachycardia patient may develop worsening tachycardia and possible cardiac arrhythmia would hold on the use of Dobutrex for now and may worsen the clinical picture. Not to mention the patient is actually doing well and diuresing well at present. Obviously he has good renal perfusion at this point. In the meantime the patient remains on antibiotics in the form of cefepime and Flagyl. Vancomycin was discontinued. Patient is on GI prophylaxis, he is also on updrafts, considering his extremely low platelets, will avoid heparin for the time being. Today I went ahead and placed a right femoral triple-lumen catheter , as the patient may require going back on norepinephrine and he is receiving significant amount of medications. I have also placed a left radial arterial line. Objective - Vital Signs Vital signs: Vital Signs Temp 98.4 F 06/16/22 12:00 Pulse 100 06/16/22 12:34 Resp 35 H 06/16/22 12:15 BP 94/54 06/16/22 10:00 Pulse Ox 87 L 06/16/22 12:15 FiO2 40 06/16/22 12:00 Intake & Output 06/15/22 06/16/22 06/16/22 18:59 06:59 18:59 Intake Total 2624 2417.819 846.456 Output Total 1812 1387 572 Balance 812 1030.819 274.456 Weight 132.4 kg 132.4 kg Intake: IV 1600 2400 750 ACETAMINOPHEN IV (For NPO 100 ) 1,000 mg In Empty Bag 1 bag @ 400 mls/hr IVPB ONCE ONE Rx#:[id number] ACETAMINOPHEN IV (For NPO 100 ) 1,000 mg In Empty Bag 1 bag @ 400 mls/hr IVPB Q6HR [facility] Rx#:[id number] Cefepime 2 gm In Sodium 200 100 100 Chloride 0.9% 100 ml @ 25 mls/hr IVPB Q8HR [facility] Rx# :[id number] Dextrose 5% in Water 1, 400 800 250 000 ml @ 50 mls/hr IV . Q23H [facility] with Sodium Bicarb (1 Meq/ml) 150 ml Rx#:[id number] Magnesium Sulfate-D5w Pmx 300 100 1 gm In Dextrose/Water 1 100ml.bag @ 100 mls/hr IVPB Q1H [facility] Rx#: [id number] Potassium Chloride 10 meq 100 300 In Water For Injection 1 100ml.bag @ 100 mls/hr IVPB Q1HR [facility] Rx#: [id number] Sodium Chloride 0.9% 1, 450 000 ml @ 150 mls/hr IV . Q6H40M [facility] Rx#:[id number] Sodium Chloride 0.9% 500 50 ml 500 ml @ 25 mls/hr IV .Q20H [facility] Rx#:[id number] Sodium Chloride 0.9% 500 1000 ml 500 ml @ 999 mls/hr IV .Q31M [facility] Rx#:[id number] metroNIDAZOLE-NS PMX 500 200 100 100 mg In Saline 1 100ml.bag @ 100 mls/hr IVPB Q8H [facility] Rx#:[id number] Intake, IV Titration 17.819 96.456 Amount Dexmedetomidine/0.9% NaCl 17.819 17.764 (Pmx) 400 mcg In Empty Bag 1 bag @ 0.2 MCG/KG/HR 6.62 mls/hr IV .Q15H7M [facility] Rx#:[id number] Norepinephrine 32 mg In 0.31 Sodium Chloride 0.9% 218 ml @ 0.05 MCG/KG/MIN 3. 103 mls/hr IV .Q24H [facility] Rx#:[id number] propofoL 1,000 mg In 78.382 Empty Bag 1 bag @ 5 MCG/ KG/MIN 3.972 mls/hr IV . Q24H [facility] Rx#:[id number] Oral 250 Tube Feeding 200 Blood Product 574 Platelet Pheresis Pas 374 Psoralen Unit [id number] Rc Irr As1 Unit 200 [id number] Output: Urine 1810 1385 570 Stool 2 2 2 Other: Voiding Method Indwelling Catheter Indwelling Catheter Indwelling Catheter ABP, PAP, CO, CI - Last Documented Arterial Blood Pressure 79/52 - Exam Physical Exam: Revealed a 27-year-old white male looks pale, in moderate severe respiratory distress upon my initial evaluation and the patient was intubated shortly after. Patient was extremely tachypneic, tachycardic, and having shallow breathing. Head: Atraumatic, normocephalic. Endotracheal tube and orogastric tube were noted to be intact post intubation. HEENT:[Neck is supple.] [No neck masses.] [No thyromegaly.] [No JVD.] Pale conjunctivae, no icterus. Chest: Symmetrical chest expansion, diminished breath sounds at the bases no rhonchi no wheezes..] Cardiac Exam: Tachycardic, Distant S1 and S2, no S3 gallop, no murmur. Abdomen: Obese, [Soft, nontender, no megaly, no rebound, no guarding, normal bowel sounds.] Extremities: [No clubbing, no edema, no cyanosis.] Good pulses bilaterally. Neurological Exam: Not assess, patient was intubated and mechanically ventilated as soon as I evaluated the patient. Psychiatric: Cannot fully assess. Skin: No rashes.. - Labs CBC & Chem 7: 06/16/22 02:43 06/16/22 02:43 Labs: Abnormal Lab Results - Last 24 Hours (Table) 06/15/22 06/15/22 06/15/22 Range/Units 12:42 13:14 13:14 WBC (3.8-10.6) k/uL RBC (4.30-5.90) m/uL Hgb (13.0-17.5) gm/dL Hct (39.0-53.0) % RDW (11.5-15.5) % Plt Count (150-450) k/uL APTT 34.9 H (22.0-30.0) sec Fibrinogen 778 H (200-500) mg/dL ABG pH (7.35-7.45) ABG pCO2 (35-45) mmHg ABG pO2 (83-108) mmHg ABG HCO3 (21-25) mmol/L ABG Total CO2 (19-24) mmol/L ABG O2 Saturation (94-97) % ABG Hematocrit (34.0-46.0) % Hemoglobin (13.0-17.5) gm/dL Chloride (98-107) mmol/L Carbon Dioxide (22-30) mmol/L BUN (9-20) mg/dL Glucose (74-99) mg/dL POC Glucose (mg/dL) (70-110) mg/dL Calcium (8.4-10.2) mg/dL AST (17-59) U/L ALT (4-49) U/L Lactate Dehydrogenase 756 H (313-618) U/L Total Protein (6.3-8.2) g/dL Albumin (3.5-5.0) g/dL Procalcitonin (0.02-0.09) ng/mL Ur Random Sodium <20 L (40-220) mmol/L 06/15/22 06/15/22 06/15/22 Range/Units 13:14 13:14 13:40 WBC 0.3 L* (3.8-10.6) k/uL RBC 2.53 L (4.30-5.90) m/uL Hgb 7.6 L (13.0-17.5) gm/dL Hct 21.6 L (39.0-53.0) % RDW 17.2 H (11.5-15.5) % Plt Count 11 L* (150-450) k/uL APTT (22.0-30.0) sec Fibrinogen (200-500) mg/dL ABG pH 7.46 H (7.35-7.45) ABG pCO2 24 L (35-45) mmHg ABG pO2 80 L (83-108) mmHg ABG HCO3 17 L (21-25) mmol/L ABG Total CO2 18 L (19-24) mmol/L ABG O2 Saturation 98.0 H (94-97) % ABG Hematocrit 23 L (34.0-46.0) % Hemoglobin 7.6 L (13.0-17.5) gm/dL Chloride 110 H (98-107) mmol/L Carbon Dioxide 14 L (22-30) mmol/L BUN 25 H (9-20) mg/dL Glucose 114 H (74-99) mg/dL POC Glucose (mg/dL) (70-110) mg/dL Calcium 7.3 L (8.4-10.2) mg/dL AST (17-59) U/L ALT (4-49) U/L Lactate Dehydrogenase (313-618) U/L Total Protein (6.3-8.2) g/dL Albumin (3.5-5.0) g/dL Procalcitonin (0.02-0.09) ng/mL Ur Random Sodium (40-220) mmol/L 06/16/22 06/16/22 06/16/22 Range/Units 02:43 02:43 02:43 WBC 0.4 L* (3.8-10.6) k/uL RBC 2.61 L (4.30-5.90) m/uL Hgb 7.5 L (13.0-17.5) gm/dL Hct 22.1 L (39.0-53.0) % RDW 16.9 H (11.5-15.5) % Plt Count 12 L* (150-450) k/uL APTT (22.0-30.0) sec Fibrinogen (200-500) mg/dL ABG pH (7.35-7.45) ABG pCO2 (35-45) mmHg ABG pO2 (83-108) mmHg ABG HCO3 (21-25) mmol/L ABG Total CO2 (19-24) mmol/L ABG O2 Saturation (94-97) % ABG Hematocrit (34.0-46.0) % Hemoglobin (13.0-17.5) gm/dL Chloride (98-107) mmol/L Carbon Dioxide 20 L (22-30) mmol/L BUN 23 H (9-20) mg/dL Glucose 111 H (74-99) mg/dL POC Glucose (mg/dL) (70-110) mg/dL Calcium 7.7 L (8.4-10.2) mg/dL AST 201 H (17-59) U/L ALT 185 H (4-49) U/L Lactate Dehydrogenase 928 H (313-618) U/L Total Protein 5.4 L (6.3-8.2) g/dL Albumin 3.0 L (3.5-5.0) g/dL Procalcitonin 33.10 H (0.02-0.09) ng/mL Ur Random Sodium (40-220) mmol/L 06/16/22 06/16/22 06/16/22 Range/Units 02:49 10:23 12:03 WBC (3.8-10.6) k/uL RBC (4.30-5.90) m/uL Hgb (13.0-17.5) gm/dL Hct (39.0-53.0) % RDW (11.5-15.5) % Plt Count (150-450) k/uL APTT (22.0-30.0) sec Fibrinogen (200-500) mg/dL ABG pH 7.34 L (7.35-7.45) ABG pCO2 (35-45) mmHg ABG pO2 160 H (83-108) mmHg ABG HCO3 (21-25) mmol/L ABG Total CO2 (19-24) mmol/L ABG O2 Saturation 98.5 H 99.8 H (94-97) % ABG Hematocrit 22 L 20 L* (34.0-46.0) % Hemoglobin 7.3 L 6.7 L* (13.0-17.5) gm/dL Chloride (98-107) mmol/L Carbon Dioxide (22-30) mmol/L BUN (9-20) mg/dL Glucose (74-99) mg/dL POC Glucose (mg/dL) 134 H (70-110) mg/dL Calcium (8.4-10.2) mg/dL AST (17-59) U/L ALT (4-49) U/L Lactate Dehydrogenase (313-618) U/L Total Protein (6.3-8.2) g/dL Albumin (3.5-5.0) g/dL Procalcitonin (0.02-0.09) ng/mL Ur Random Sodium (40-220) mmol/L Microbiology - Last 24 Hours (Table) 06/15/22 05:41 Blood Culture - Preliminary Blood No Growth after 24 hours 06/15/22 11:06 Stool Culture - Preliminary Stool 06/14/22 18:30 Urine Culture - Final Urine,Catheterized 06/14/22 09:32 Blood Culture Gram Stain - Preliminary Blood Assessment and Plan Assessment: Impression: Acute hypoxic respiratory failure secondary to sepsis and septic shock in immunocompromised patient with pancytopenia, chemotherapy induced for AML. And secondary to acute systolic congestive heart failure Acute sepsis, possible septic shock. E. coli bacteremia Pancytopenia secondary to AML and chemotherapy Nonischemic cardiomyopathy and LV dysfunction most likely secondary to sepsis, however cardiomyopathy secondary to chemotherapy is not entirely ruled out. Elevated troponin secondary to sepsis Acute kidney injury secondary to sepsis, resolving. And improving based on labs today. Acute metabolic acidosis secondary to sepsis and secondary to acute kidney injury Recommendation: Updated the family on his condition Recommended immediate intubation and mechanical ventilation Central access was established and arterial line was placed. Continue transfusion of blood and platelets as recommended by hematology/onco logy on the case. Continue cefepime and Flagyl for now Hemodynamic support if necessary. Cut down on IV fluids Continue sodium bicarb drip for now. Continue to monitor in the ICU. Daily CBC and address accordingly low platelets and low hemoglobin as well as low blood cell count, patient is on.[email or web address] Patient remains critically ill. And prognosis is guarded Critical care time is over 30 minutes not including the time spent on procedures. Time with Patient: Greater than 30
[2022-06-16] MEDS: CISATRACURIUM 200 MG in SODIUM CHLORIDE 0.9% 180 ML IV SCH (14:24)
--- NOTE | 2022-06-16 14:24 | P.PN ---
Subjective Progress Note Date: 06/16/22 Pt is not intubated, sedated. PC 33.1, but improving from 60s. BNP worsening from 6700-->91884. Now with A-line, femoral central line. Requiring levophed 0.1, on propofol at 70. Hourly UOP is 50-125 mL per hour Gen: Intubated, sedated HEENT: normocephalic, atraumatic, good hearing acuity, moist mucous membranes Resp: Impaired air exchange, ventilator dependent CVS: good distal perfusion x 4, tachycardic GI: soft, NTTP, ND : no SPT, no CVAT, watkins catheter is present MSK: no pitting edema, no clubbing Neuro: Sedated Labs and imaging reviewed as above Assessment/plan: Septic shock Acute kidney injury Acute Systolic Heart Failure, EF 35%, secondary to sepsis vs less likely chemo- induced -Transfer to ICU, telemetry -Appreciate ICU, cardiology, infectious disease consultation -IV fluids -Levophed if required for MAP > 55 -Repeat labs: CBC tomorrow morning, basic metabolic panel tomorrow morning -Follow blood cultures = E coli, sensitivities pending -cefepime, can consider de-escalating vancomycin and flagyl if no new microbiological growth by tomorrow -Ordered: 1, 3, beta D glucan, galactomannan, repeat lactic acid -Patient may also benefit from G-CSF if septic shock worsens, defer to oncology -dose lasix PRN, keep SBP > 100, fluid restriction to 1200cc AML Pancytopenia -Hematology consult to follow -Transfuse for platelets less than 20 with fevers, or less than 10 -Transfuse for hemoglobin less than 7 -Patient will always require irradiated product Patient is full code DVT prophylaxis is on hold given low hemoglobin and low platelets I spent 45 minutes of critical care time with this patient, not including procedures today Objective - Vital Signs Vital signs: Vital Signs Temp 100.2 F H 06/16/22 13:55 Pulse 126 H 06/16/22 13:55 Resp 38 H 06/16/22 13:55 BP 129/69 06/16/22 13:55 Pulse Ox 100 06/16/22 13:55 FiO2 100 06/16/22 13:25 Intake & Output 06/15/22 06/16/22 06/16/22 18:59 06:59 18:59 Intake Total 2624 2417.819 924.440 Output Total 1812 1387 572 Balance 812 1030.819 352.440 Weight 132.4 kg 132.4 kg Intake: IV 1600 2400 750 ACETAMINOPHEN IV (For NPO 100 ) 1,000 mg In Empty Bag 1 bag @ 400 mls/hr IVPB ONCE ONE Rx#:[id number] ACETAMINOPHEN IV (For NPO 100 ) 1,000 mg In Empty Bag 1 bag @ 400 mls/hr IVPB Q6HR [facility] Rx#:[id number] Cefepime 2 gm In Sodium 200 100 100 Chloride 0.9% 100 ml @ 25 mls/hr IVPB Q8HR [facility] Rx# :[id number] Dextrose 5% in Water 1, 400 800 250 000 ml @ 50 mls/hr IV . Q23H [facility] with Sodium Bicarb (1 Meq/ml) 150 ml Rx#:[id number] Magnesium Sulfate-D5w Pmx 300 100 1 gm In Dextrose/Water 1 100ml.bag @ 100 mls/hr IVPB Q1H [facility] Rx#: [id number] Potassium Chloride 10 meq 100 300 In Water For Injection 1 100ml.bag @ 100 mls/hr IVPB Q1HR [facility] Rx#: [id number] Sodium Chloride 0.9% 1, 450 000 ml @ 150 mls/hr IV . Q6H40M [facility] Rx#:[id number] Sodium Chloride 0.9% 500 50 ml 500 ml @ 25 mls/hr IV .Q20H [facility] Rx#:[id number] Sodium Chloride 0.9% 500 1000 ml 500 ml @ 999 mls/hr IV .Q31M [facility] Rx#:[id number] metroNIDAZOLE-NS PMX 500 200 100 100 mg In Saline 1 100ml.bag @ 100 mls/hr IVPB Q8H [facility] Rx#:[id number] Intake, IV Titration 17.819 174.440 Amount Dexmedetomidine/0.9% NaCl 17.819 17.764 (Pmx) 400 mcg In Empty Bag 1 bag @ 0.2 MCG/KG/HR 6.62 mls/hr IV .Q15H7M [facility] Rx#:[id number] Norepinephrine 32 mg In 0.31 Sodium Chloride 0.9% 218 ml @ 0.05 MCG/KG/MIN 3. 103 mls/hr IV .Q24H [facility] Rx#:[id number] propofoL 1,000 mg In 156.366 Empty Bag 1 bag @ 5 MCG/ KG/MIN 3.972 mls/hr IV . Q24H [facility] Rx#:[id number] Oral 250 Tube Feeding 200 Blood Product 574 0 Platelet Pheresis Pas 0 Psoralen Unit [id number] Platelet Pheresis Pas 374 Psoralen Unit [id number] Rc Irr As1 Unit 200 [id number] Output: Urine 1810 1385 570 Stool 2 2 2 Other: Voiding Method Indwelling Catheter Indwelling Catheter Indwelling Catheter ABP, PAP, CO, CI - Last Documented Arterial Blood Pressure 79/52 - Labs CBC & Chem 7: 06/16/22 02:43 06/16/22 02:43 Labs: Abnormal Lab Results - Last 24 Hours (Table) 06/15/22 06/15/22 06/16/22 Range/Units 12:42 13:14 02:43 WBC (3.8-10.6) k/uL RBC (4.30-5.90) m/uL Hgb (13.0-17.5) gm/dL Hct (39.0-53.0) % RDW (11.5-15.5) % Plt Count (150-450) k/uL ABG pH (7.35-7.45) ABG pO2 (83-108) mmHg ABG O2 Saturation (94-97) % ABG Hematocrit (34.0-46.0) % Hemoglobin (13.0-17.5) gm/dL Carbon Dioxide (22-30) mmol/L BUN 25 H (9-20) mg/dL Glucose (74-99) mg/dL POC Glucose (mg/dL) (70-110) mg/dL Calcium (8.4-10.2) mg/dL AST (17-59) U/L ALT (4-49) U/L Lactate Dehydrogenase (313-618) U/L Total Protein (6.3-8.2) g/dL Albumin (3.5-5.0) g/dL Procalcitonin 33.10 H (0.02-0.09) ng/mL Ur Random Sodium <20 L (40-220) mmol/L 09/09/22 09/09/22 09/09/22 Range/Units 02:43 02:43 02:49 WBC 0.4 L* (3.8-10.6) k/uL RBC 2.61 L (4.30-5.90) m/uL Hgb 7.5 L (13.0-17.5) gm/dL Hct 22.1 L (39.0-53.0) % RDW 16.9 H (11.5-15.5) % Plt Count 12 L* (150-450) k/uL ABG pH (7.35-7.45) ABG pO2 (83-108) mmHg ABG O2 Saturation 98.5 H (94-97) % ABG Hematocrit 22 L (34.0-46.0) % Hemoglobin 7.3 L (13.0-17.5) gm/dL Carbon Dioxide 20 L (22-30) mmol/L BUN 23 H (9-20) mg/dL Glucose 111 H (74-99) mg/dL POC Glucose (mg/dL) (70-110) mg/dL Calcium 7.7 L (8.4-10.2) mg/dL AST 201 H (17-59) U/L ALT 185 H (4-49) U/L Lactate Dehydrogenase 928 H (313-618) U/L Total Protein 5.4 L (6.3-8.2) g/dL Albumin 3.0 L (3.5-5.0) g/dL Procalcitonin (0.02-0.09) ng/mL Ur Random Sodium (40-220) mmol/L 06/16/22 06/16/22 Range/Units 10:23 12:03 WBC (3.8-10.6) k/uL RBC (4.30-5.90) m/uL Hgb (13.0-17.5) gm/dL Hct (39.0-53.0) % RDW (11.5-15.5) % Plt Count (150-450) k/uL ABG pH 7.34 L (7.35-7.45) ABG pO2 160 H (83-108) mmHg ABG O2 Saturation 99.8 H (94-97) % ABG Hematocrit 20 L* (34.0-46.0) % Hemoglobin 6.7 L* (13.0-17.5) gm/dL Carbon Dioxide (22-30) mmol/L BUN (9-20) mg/dL Glucose (74-99) mg/dL POC Glucose (mg/dL) 134 H (70-110) mg/dL Calcium (8.4-10.2) mg/dL AST (17-59) U/L ALT (4-49) U/L Lactate Dehydrogenase (313-618) U/L Total Protein (6.3-8.2) g/dL Albumin (3.5-5.0) g/dL Procalcitonin (0.02-0.09) ng/mL Ur Random Sodium (40-220) mmol/L Microbiology - Last 24 Hours (Table) 06/15/22 05:41 Blood Culture - Preliminary Blood No Growth after 24 hours 06/15/22 11:06 Stool Culture - Preliminary Stool 06/14/22 18:30 Urine Culture - Final Urine,Catheterized
[2022-06-16 14:36] VITALS: RESP 20
[2022-06-16] MEDS ORDERED: HYDROmorphone 1 MG/ML 1 ML SYRINGE IVP PRN (14:38)
[2022-06-16] MEDS: CALCIUM CARBONATE 500 MG CHEWABLE PO SCH ×3 (14:47→20:51)
[2022-06-16 14:57] VITALS: BP 80/50
--- NOTE | 2022-06-16 16:12 | P.PN ---
Subjective Progress Note Date: 06/15/22 Principal diagnosis: Febrile neutropenia and Bacteremia Patient is a 27-year-old male with a past medical history significant for leukemia in this patient presented to hospital with a fever and now with evidence of gram-negative bacteremia. On today's evaluation that is 06/15/2022, the patient did spike a fever this afternoon of 102F, the patient is hemodynamically stable not requiring any pressor support, the patient is currently breathing comfortably on room air however complain of some shortness of breath no chest pain minimal cough no sputum production no abdominal pain had did have some diarrhea Objective - Vital Signs Vital signs: Vital Signs Temp 102 F H 06/15/22 13:20 Pulse 144 H 06/15/22 13:20 Resp 38 H 06/15/22 13:20 BP 140/95 06/15/22 13:20 Pulse Ox 96 06/15/22 13:20 FiO2 Intake & Output 06/14/22 06/15/22 06/15/22 18:59 06:59 18:59 Intake Total 0 4808 1350 Output Total 1431 710 Balance 0 3377 640 Weight 122.47 kg 134.5 kg Intake: IV 1500 1150 Cefepime 2 gm In Sodium 100 Chloride 0.9% 100 ml @ 25 mls/hr IVPB Q8HR [facility] Rx# :[id number] Dextrose 5% in Water 1, 150 000 ml @ 50 mls/hr IV . Q23H [facility] with Sodium Bicarb (1 Meq/ml) 150 ml Rx#:[id number] Magnesium Sulfate-D5w Pmx 300 1 gm In Dextrose/Water 1 100ml.bag @ 100 mls/hr IVPB Q1H [facility] Rx#: [id number] Sodium Chloride 0.9% 1, 1500 450 000 ml @ 150 mls/hr IV . Q6H40M [facility] Rx#:[id number] Sodium Chloride 0.9% 500 50 ml 500 ml @ 25 mls/hr IV .Q20H [facility] Rx#:[id number] metroNIDAZOLE-NS PMX 500 100 mg In Saline 1 100ml.bag @ 100 mls/hr IVPB Q8H [facility] Rx#:[id number] Intake, IV Titration 1600 Amount Sodium Chloride 0.9% 1, 1000 000 ml @ 999 mls/hr IV . Q1H1M [facility] Rx#:[id number] Vancomycin 2,000 mg In 100 Sodium Chloride 0.9% 500 ml 500 ml @ 167 mls/hr IVPB ONCE ONE Rx#: [id number] Vancomycin 2,000 mg In 500 Sodium Chloride 0.9% 500 ml 500 ml @ 167 mls/hr IVPB Q12H [facility] Rx#: [id number] Oral 400 Blood Product 0 1308 200 Platelet Pheresis Pas 344 Psoralen Unit [id number] Platelet Pheresis Pas 0 Psoralen Unit [id number] Rc Irr As1 Unit 0 310 [id number] Rc Irr As1 Unit 200 [id number] Output: Urine 1431 710 Other: Voiding Method Indwelling Catheter Indwelling Catheter Indwelling Catheter # Bowel Movements 1 - Exam GENERAL DESCRIPTION: Young male lying in bed in no distress RESPIRATORY SYSTEM: Unlabored breathing , decreased breath sounds at bases HEART: S1 S2 regular rate and rhythm , ABDOMEN: Soft , no tenderness EXTREMITIES: No edema feet - Labs CBC & Chem 7: 06/16/22 02:43 06/16/22 02:43 Labs: Abnormal Lab Results - Last 24 Hours (Table) 06/14/22 06/14/22 06/14/22 Range/Units 09:32 09:32 11:35 WBC (3.8-10.6) k/uL RBC (4.30-5.90) m/uL Hgb (13.0-17.5) gm/dL Hct (39.0-53.0) % RDW (11.5-15.5) % Plt Count 3 L* (150-450) k/uL ABG pH (7.35-7.45) ABG pCO2 (35-45) mmHg ABG pO2 (83-108) mmHg ABG HCO3 (21-25) mmol/L ABG Total CO2 (19-24) mmol/L ABG O2 Saturation (94-97) % ABG Hematocrit (34.0-46.0) % Hemoglobin (13.0-17.5) gm/dL Chloride (98-107) mmol/L Carbon Dioxide (22-30) mmol/L BUN (9-20) mg/dL Creatinine (0.66-1.25) mg/dL Glucose (74-99) mg/dL POC Glucose (mg/dL) (70-110) mg/dL Plasma Lactic Acid Marcello (0.7-2.0) mmol/L Calcium (8.4-10.2) mg/dL Magnesium (1.6-2.3) mg/dL Total Bilirubin (0.2-1.3) mg/dL Delta Bilirubin (0.0-0.2) mg/dL AST (17-59) U/L ALT (4-49) U/L Troponin I (0.000-0.034) ng/mL C-Reactive Protein (<1.0) mg/dL Total Protein (6.3-8.2) g/dL Albumin (3.5-5.0) g/dL Procalcitonin 38.40 H (0.02-0.09) ng/mL Ur Specific [place] (1.001-1.035) Urine Protein (Negative) Urine Ketones (Negative) Urine Mucus (None) /hpf Crossmatch See Detail 06/14/22 06/14/22 06/14/22 Range/Units 12:59 14:58 16:09 WBC 0.1 L* (3.8-10.6) k/uL RBC 2.18 L (4.30-5.90) m/uL Hgb 6.4 L* D (13.0-17.5) gm/dL Hct 18.6 L* (39.0-53.0) % RDW 16.9 H (11.5-15.5) % Plt Count 3 L* (150-450) k/uL ABG pH (7.35-7.45) ABG pCO2 (35-45) mmHg ABG pO2 (83-108) mmHg ABG HCO3 (21-25) mmol/L ABG Total CO2 (19-24) mmol/L ABG O2 Saturation (94-97) % ABG Hematocrit (34.0-46.0) % Hemoglobin (13.0-17.5) gm/dL Chloride (98-107) mmol/L Carbon Dioxide (22-30) mmol/L BUN (9-20) mg/dL Creatinine (0.66-1.25) mg/dL Glucose (74-99) mg/dL POC Glucose (mg/dL) (70-110) mg/dL Plasma Lactic Acid Marcello 3.9 H* 4.9 H* (0.7-2.0) mmol/L Calcium (8.4-10.2) mg/dL Magnesium (1.6-2.3) mg/dL Total Bilirubin (0.2-1.3) mg/dL Delta Bilirubin (0.0-0.2) mg/dL AST (17-59) U/L ALT (4-49) U/L Troponin I (0.000-0.034) ng/mL C-Reactive Protein (<1.0) mg/dL Total Protein (6.3-8.2) g/dL Albumin (3.5-5.0) g/dL Procalcitonin (0.02-0.09) ng/mL Ur Specific [place] (1.001-1.035) Urine Protein (Negative) Urine Ketones (Negative) Urine Mucus (None) /hpf Crossmatch 06/14/22 06/14/22 06/14/22 Range/Units 18:26 19:37 19:37 WBC 0.1 L* (3.8-10.6) k/uL RBC 2.41 L (4.30-5.90) m/uL Hgb 7.2 L (13.0-17.5) gm/dL Hct 20.7 L (39.0-53.0) % RDW 17.4 H (11.5-15.5) % Plt Count 3 L* (150-450) k/uL ABG pH (7.35-7.45) ABG pCO2 (35-45) mmHg ABG pO2 (83-108) mmHg ABG HCO3 (21-25) mmol/L ABG Total CO2 (19-24) mmol/L ABG O2 Saturation (94-97) % ABG Hematocrit (34.0-46.0) % Hemoglobin (13.0-17.5) gm/dL Chloride (98-107) mmol/L Carbon Dioxide (22-30) mmol/L BUN (9-20) mg/dL Creatinine (0.66-1.25) mg/dL Glucose (74-99) mg/dL POC Glucose (mg/dL) 118 H (70-110) mg/dL Plasma Lactic Acid Marcello 4.1 H* (0.7-2.0) mmol/L Calcium (8.4-10.2) mg/dL Magnesium (1.6-2.3) mg/dL Total Bilirubin (0.2-1.3) mg/dL Delta Bilirubin (0.0-0.2) mg/dL AST (17-59) U/L ALT (4-49) U/L Troponin I (0.000-0.034) ng/mL C-Reactive Protein (<1.0) mg/dL Total Protein (6.3-8.2) g/dL Albumin (3.5-5.0) g/dL Procalcitonin (0.02-0.09) ng/mL Ur Specific [place] (1.001-1.035) Urine Protein (Negative) Urine Ketones (Negative) Urine Mucus (None) /hpf Crossmatch 06/14/22 06/14/22 06/15/22 Range/Units 22:30 Unknown 02:35 WBC (3.8-10.6) k/uL RBC (4.30-5.90) m/uL Hgb (13.0-17.5) gm/dL Hct (39.0-53.0) % RDW (11.5-15.5) % Plt Count (150-450) k/uL ABG pH (7.35-7.45) ABG pCO2 (35-45) mmHg ABG pO2 (83-108) mmHg ABG HCO3 (21-25) mmol/L ABG Total CO2 (19-24) mmol/L ABG O2 Saturation (94-97) % ABG Hematocrit (34.0-46.0) % Hemoglobin (13.0-17.5) gm/dL Chloride (98-107) mmol/L Carbon Dioxide (22-30) mmol/L BUN (9-20) mg/dL Creatinine (0.66-1.25) mg/dL Glucose (74-99) mg/dL POC Glucose (mg/dL) (70-110) mg/dL Plasma Lactic Acid Marcello 2.8 H* 2.4 H* (0.7-2.0) mmol/L Calcium (8.4-10.2) mg/dL Magnesium (1.6-2.3) mg/dL Total Bilirubin (0.2-1.3) mg/dL Delta Bilirubin (0.0-0.2) mg/dL AST (17-59) U/L ALT (4-49) U/L Troponin I (0.000-0.034) ng/mL C-Reactive Protein (<1.0) mg/dL Total Protein (6.3-8.2) g/dL Albumin (3.5-5.0) g/dL Procalcitonin (0.02-0.09) ng/mL Ur Specific [place] 1.037 H (1.001-1.035) Urine Protein 1+ H (Negative) Urine Ketones Trace H (Negative) Urine Mucus Rare H (None) /hpf Crossmatch 06/15/22 06/15/22 06/15/22 Range/Units 05:41 05:41 05:41 WBC 0.3 L* (3.8-10.6) k/uL RBC 2.29 L (4.30-5.90) m/uL Hgb 6.5 L* (13.0-17.5) gm/dL Hct 19.1 L* (39.0-53.0) % RDW 16.8 H (11.5-15.5) % Plt Count 9 L* D (150-450) k/uL ABG pH (7.35-7.45) ABG pCO2 (35-45) mmHg ABG pO2 (83-108) mmHg ABG HCO3 (21-25) mmol/L ABG Total CO2 (19-24) mmol/L ABG O2 Saturation (94-97) % ABG Hematocrit (34.0-46.0) % Hemoglobin (13.0-17.5) gm/dL Chloride 110 H (98-107) mmol/L Carbon Dioxide 14 L (22-30) mmol/L BUN 25 H (9-20) mg/dL Creatinine 1.51 H (0.66-1.25) mg/dL Glucose 105 H (74-99) mg/dL POC Glucose (mg/dL) (70-110) mg/dL Plasma Lactic Acid Marcello (0.7-2.0) mmol/L Calcium 7.1 L (8.4-10.2) mg/dL Magnesium 1.1 L (1.6-2.3) mg/dL Total Bilirubin 1.4 H (0.2-1.3) mg/dL Delta Bilirubin 0.3 H (0.0-0.2) mg/dL AST 90 H (17-59) U/L ALT 84 H (4-49) U/L Troponin I (0.000-0.034) ng/mL C-Reactive Protein 34.0 H (<1.0) mg/dL Total Protein 5.1 L (6.3-8.2) g/dL Albumin 2.8 L (3.5-5.0) g/dL Procalcitonin 65.30 H (0.02-0.09) ng/mL Ur Specific [place] (1.001-1.035) Urine Protein (Negative) Urine Ketones (Negative) Urine Mucus (None) /hpf Crossmatch 06/15/22 06/15/22 Range/Units 05:41 13:40 WBC (3.8-10.6) k/uL RBC (4.30-5.90) m/uL Hgb (13.0-17.5) gm/dL Hct (39.0-53.0) % RDW (11.5-15.5) % Plt Count (150-450) k/uL ABG pH 7.46 H (7.35-7.45) ABG pCO2 24 L (35-45) mmHg ABG pO2 80 L (83-108) mmHg ABG HCO3 17 L (21-25) mmol/L ABG Total CO2 18 L (19-24) mmol/L ABG O2 Saturation 98.0 H (94-97) % ABG Hematocrit 23 L (34.0-46.0) % Hemoglobin 7.6 L (13.0-17.5) gm/dL Chloride (98-107) mmol/L Carbon Dioxide (22-30) mmol/L BUN (9-20) mg/dL Creatinine (0.66-1.25) mg/dL Glucose (74-99) mg/dL POC Glucose (mg/dL) (70-110) mg/dL Plasma Lactic Acid [place]cell[place] (0.7-2.0) mmol/L Calcium (8.4-10.2) mg/dL Magnesium (1.6-2.3) mg/dL Total Bilirubin (0.2-1.3) mg/dL Delta Bilirubin (0.0-0.2) mg/dL AST (17-59) U/L ALT (4-49) U/L Troponin I 1.970 H* (0.000-0.034) ng/mL C-Reactive Protein (<1.0) mg/dL Total Protein (6.3-8.2) g/dL Albumin (3.5-5.0) g/dL Procalcitonin (0.02-0.09) ng/mL Ur Specific [place] (1.001-1.035) Urine Protein (Negative) Urine Ketones (Negative) Urine Mucus (None) /hpf Crossmatch Microbiology - Last 24 Hours (Table) 06/14/22 09:32 Blood Culture Gram Stain - Preliminary Blood 06/14/22 09:32 Blood Culture Gram Stain - Preliminary Blood Blood Culture - Final Escherichia coli 06/14/22 09:32 Blood Culture - Final Blood 06/14/22 15:40 Catheter Tip Culture - Preliminary Picc Line 06/14/22 18:30 Urine Culture - Preliminary Urine,Catheterized 06/14/22 09:32 Blood Culture - Final Blood Assessment and Plan (1) Bacteremia Current Visit: Yes Status: Acute Code(s): R78.81 - BACTEREMIA SNOMED Code(s): 5223467 (2) Neutropenic fever Current Visit: Yes Status: Acute Priority: High Code(s): D70.9 - NEUTROPENIA, UNSPECIFIED; R50.81 - FEVER PRESENTING WITH CONDITIONS CLASSIFIED ELSEWHERE SNOMED Code(s): 482939457 Plan: 1patient presented to hospital with sepsis in this patient with a fever and neutropenia and now with evidence of gram-negative bacteremia which has been finalized with an E. coli and apparently sensitive pathogen per lab 2- patient to continue with the cefepime and Flagyl he will discontinue vancomycin to decrease risk of nephrotoxicity 3- once kidney function improve we'll obtain a CT of abdominal pelvis with contrast Time with Patient: Less than 30
--- NOTE | 2022-06-16 16:14 | P.PN ---
Subjective Progress Note Date: 06/16/22 Principal diagnosis: Febrile neutropenia and Bacteremia Patient is a 27-year-old male with a past medical history significant for leukemia in this patient presented to hospital with a fever and now with evidence of gram-negative bacteremia. On today's evaluation that is 06/16/2022, the patient will did went into respiratory distress this morning and ended up getting intubated, the patient overall fever pattern has improved with a low-grade fever 100.4 this afternoon, the patient is hemodynamically stable and no significant purulent secretions through the ET reported he did have some diarrhea Objective - Vital Signs Vital signs: Vital Signs Temp 98.4 F 06/16/22 12:00 Pulse 100 06/16/22 12:34 Resp 35 H 06/16/22 12:15 BP 94/54 06/16/22 10:00 Pulse Ox 87 L 06/16/22 12:15 FiO2 40 06/16/22 12:00 Intake & Output 06/15/22 06/16/22 06/16/22 18:59 06:59 18:59 Intake Total 2624 2417.819 846.456 Output Total 1812 1387 572 Balance 812 1030.819 274.456 Weight 132.4 kg 132.4 kg Intake: IV 1600 2400 750 ACETAMINOPHEN IV (For NPO 100 ) 1,000 mg In Empty Bag 1 bag @ 400 mls/hr IVPB ONCE ONE Rx#:[id number] ACETAMINOPHEN IV (For NPO 100 ) 1,000 mg In Empty Bag 1 bag @ 400 mls/hr IVPB Q6HR [facility] Rx#:[id number] Cefepime 2 gm In Sodium 200 100 100 Chloride 0.9% 100 ml @ 25 mls/hr IVPB Q8HR [facility] Rx# :[id number] Dextrose 5% in Water 1, 400 800 250 000 ml @ 50 mls/hr IV . Q23H [facility] with Sodium Bicarb (1 Meq/ml) 150 ml Rx#:[id number] Magnesium Sulfate-D5w Pmx 300 100 1 gm In Dextrose/Water 1 100ml.bag @ 100 mls/hr IVPB Q1H [facility] Rx#: [id number] Potassium Chloride 10 meq 100 300 In Water For Injection 1 100ml.bag @ 100 mls/hr IVPB Q1HR [facility] Rx#: [id number] Sodium Chloride 0.9% 1, 450 000 ml @ 150 mls/hr IV . Q6H40M [facility] Rx#:[id number] Sodium Chloride 0.9% 500 50 ml 500 ml @ 25 mls/hr IV .Q20H [facility] Rx#:[id number] Sodium Chloride 0.9% 500 1000 ml 500 ml @ 999 mls/hr IV .Q31M ONE Rx#:[id number] metroNIDAZOLE-NS PMX 500 200 100 100 mg In Saline 1 100ml.bag @ 100 mls/hr IVPB Q8H [facility] Rx#:[id number] Intake, IV Titration 17.819 96.456 Amount Dexmedetomidine/0.9% NaCl 17.819 17.764 (Pmx) 400 mcg In Empty Bag 1 bag @ 0.2 MCG/KG/HR 6.62 mls/hr IV .Q15H7M [facility] Rx#:[id number] Norepinephrine 32 mg In 0.31 Sodium Chloride 0.9% 218 ml @ 0.05 MCG/KG/MIN 3. 103 mls/hr IV .Q24H [facility] Rx#:[id number] propofoL 1,000 mg In 78.382 Empty Bag 1 bag @ 5 MCG/ KG/MIN 3.972 mls/hr IV . Q24H [facility] Rx#:[id number] Oral 250 Tube Feeding 200 Blood Product 574 Platelet Pheresis Pas 374 Psoralen Unit [id number] Rc Irr As1 Unit 200 [id number] Output: Urine 1810 1385 570 Stool 2 2 2 Other: Voiding Method Indwelling Catheter Indwelling Catheter Indwelling Catheter ABP, PAP, CO, CI - Last Documented Arterial Blood Pressure 79/52 - Exam GENERAL DESCRIPTION: Young male intubated on the vent RESPIRATORY SYSTEM: Unlabored breathing , decreased breath sounds at bases HEART: S1 S2 regular rate and rhythm , ABDOMEN: Soft , no tenderness EXTREMITIES: No edema feet - Labs CBC & Chem 7: 06/16/22 02:43 06/16/22 02:43 Labs: Abnormal Lab Results - Last 24 Hours (Table) 06/15/22 06/15/22 06/15/22 Range/Units 12:42 13:14 13:14 WBC (3.8-10.6) k/uL RBC (4.30-5.90) m/uL Hgb (13.0-17.5) gm/dL Hct (39.0-53.0) % RDW (11.5-15.5) % Plt Count (150-450) k/uL APTT 34.9 H (22.0-30.0) sec Fibrinogen 778 H (200-500) mg/dL ABG pH (7.35-7.45) ABG pCO2 (35-45) mmHg ABG pO2 (83-108) mmHg ABG HCO3 (21-25) mmol/L ABG Total CO2 (19-24) mmol/L ABG O2 Saturation (94-97) % ABG Hematocrit (34.0-46.0) % Hemoglobin (13.0-17.5) gm/dL Chloride (98-107) mmol/L Carbon Dioxide (22-30) mmol/L BUN (9-20) mg/dL Glucose (74-99) mg/dL POC Glucose (mg/dL) (70-110) mg/dL Calcium (8.4-10.2) mg/dL AST (17-59) U/L ALT (4-49) U/L Lactate Dehydrogenase 756 H (313-618) U/L Total Protein (6.3-8.2) g/dL Albumin (3.5-5.0) g/dL Procalcitonin (0.02-0.09) ng/mL Ur Random Sodium <20 L (40-220) mmol/L 06/15/22 06/15/22 06/15/22 Range/Units 13:14 13:14 13:40 WBC 0.3 L* (3.8-10.6) k/uL RBC 2.53 L (4.30-5.90) m/uL Hgb 7.6 L (13.0-17.5) gm/dL Hct 21.6 L (39.0-53.0) % RDW 17.2 H (11.5-15.5) % Plt Count 11 L* (150-450) k/uL APTT (22.0-30.0) sec Fibrinogen (200-500) mg/dL ABG pH 7.46 H (7.35-7.45) ABG pCO2 24 L (35-45) mmHg ABG pO2 80 L (83-108) mmHg ABG HCO3 17 L (21-25) mmol/L ABG Total CO2 18 L (19-24) mmol/L ABG O2 Saturation 98.0 H (94-97) % ABG Hematocrit 23 L (34.0-46.0) % Hemoglobin 7.6 L (13.0-17.5) gm/dL Chloride 110 H (98-107) mmol/L Carbon Dioxide 14 L (22-30) mmol/L BUN 25 H (9-20) mg/dL Glucose 114 H (74-99) mg/dL POC Glucose (mg/dL) (70-110) mg/dL Calcium 7.3 L (8.4-10.2) mg/dL AST (17-59) U/L ALT (4-49) U/L Lactate Dehydrogenase (313-618) U/L Total Protein (6.3-8.2) g/dL Albumin (3.5-5.0) g/dL Procalcitonin (0.02-0.09) ng/mL Ur Random Sodium (40-220) mmol/L 06/16/22 06/16/22 06/16/22 Range/Units 02:43 02:43 02:43 WBC 0.4 L* (3.8-10.6) k/uL RBC 2.61 L (4.30-5.90) m/uL Hgb 7.5 L (13.0-17.5) gm/dL Hct 22.1 L (39.0-53.0) % RDW 16.9 H (11.5-15.5) % Plt Count 12 L* (150-450) k/uL APTT (22.0-30.0) sec Fibrinogen (200-500) mg/dL ABG pH (7.35-7.45) ABG pCO2 (35-45) mmHg ABG pO2 (83-108) mmHg ABG HCO3 (21-25) mmol/L ABG Total CO2 (19-24) mmol/L ABG O2 Saturation (94-97) % ABG Hematocrit (34.0-46.0) % Hemoglobin (13.0-17.5) gm/dL Chloride (98-107) mmol/L Carbon Dioxide 20 L (22-30) mmol/L BUN 23 H (9-20) mg/dL Glucose 111 H (74-99) mg/dL POC Glucose (mg/dL) (70-110) mg/dL Calcium 7.7 L (8.4-10.2) mg/dL AST 201 H (17-59) U/L ALT 185 H (4-49) U/L Lactate Dehydrogenase 928 H (313-618) U/L Total Protein 5.4 L (6.3-8.2) g/dL Albumin 3.0 L (3.5-5.0) g/dL Procalcitonin 33.10 H (0.02-0.09) ng/mL Ur Random Sodium (40-220) mmol/L 06/16/22 06/16/22 06/16/22 Range/Units 02:49 10:23 12:03 WBC (3.8-10.6) k/uL RBC (4.30-5.90) m/uL Hgb (13.0-17.5) gm/dL Hct (39.0-53.0) % RDW (11.5-15.5) % Plt Count (150-450) k/uL APTT (22.0-30.0) sec Fibrinogen (200-500) mg/dL ABG pH 7.34 L (7.35-7.45) ABG pCO2 (35-45) mmHg ABG pO2 160 H (83-108) mmHg ABG HCO3 (21-25) mmol/L ABG Total CO2 (19-24) mmol/L ABG O2 Saturation 98.5 H 99.8 H (94-97) % ABG Hematocrit 22 L 20 L* (34.0-46.0) % Hemoglobin 7.3 L 6.7 L* (13.0-17.5) gm/dL Chloride (98-107) mmol/L Carbon Dioxide (22-30) mmol/L BUN (9-20) mg/dL Glucose (74-99) mg/dL POC Glucose (mg/dL) 134 H (70-110) mg/dL Calcium (8.4-10.2) mg/dL AST (17-59) U/L ALT (4-49) U/L Lactate Dehydrogenase (313-618) U/L Total Protein (6.3-8.2) g/dL Albumin (3.5-5.0) g/dL Procalcitonin (0.02-0.09) ng/mL Ur Random Sodium (40-220) mmol/L Microbiology - Last 24 Hours (Table) 06/15/22 05:41 Blood Culture - Preliminary Blood No Growth after 24 hours 06/15/22 11:06 Stool Culture - Preliminary Stool 06/14/22 18:30 Urine Culture - Final Urine,Catheterized 06/14/22 09:32 Blood Culture Gram Stain - Preliminary Blood Assessment and Plan (1) Bacteremia Current Visit: Yes Status: Acute Code(s): R78.81 - BACTEREMIA SNOMED Code(s): 2907279 (2) Neutropenic fever Current Visit: Yes Status: Acute Priority: High Code(s): D70.9 - NEUTROPENIA, UNSPECIFIED; R50.81 - FEVER PRESENTING WITH CONDITIONS CLASSIFIED ELSEWHERE SNOMED Code(s): 777018164 Plan: 1patient presented to hospital with sepsis in this patient with a fever and neutropenia and now with evidence of gram-negative bacteremia which has been finalized with an E. coli possible gut source from transmigration of the colonic acosta, repeat blood culture so far pending The cultures pending CT angiogram of the chest was negative for any pneumonia and urine is negative 2- patient to continue with the cefepime and Flagyl and monitor clinical course closely Time with Patient: Less than 30
[2022-06-16 17:00] LABS: Glucose,Whole Blood 137 mg/dL (70-110)
[2022-06-16 17:14] LABS: Anisocytosis Slight; MCH 29.8 pg (25.0-35.0); MCHC 35.3 g/dL (31.0-37.0); MCV 84.4 fL (80.0-100.0); Mean Platelet Volume 8.1; Poikilocytosis Slight; RBC 2.21 m/uL (4.30-5.90); RDW 16.8 % (11.5-15.5)
[2022-06-16] MEDS: ARTIFICIAL TEARS-HYPROMELLOSE DROPS 15 ML BTL BOTH EYES SCH ×2 (17:16→20:51)
[2022-06-16 17:20] LABS: HCT 18.7 % (39.0-53.0); HGB 6.6 gm/dL (13.0-17.5); Platelet Count 14 k/uL (150-450); WBC 0.7 k/uL (3.8-10.6)
[2022-06-16] MEDS: FILGRASTIM-SNDZ 480 MCG/0.8 ML SYRINGE SQ SCH (17:40)
--- NOTE | 2022-06-16 17:40 | OP ---
OPERATIVE REPORT PROCEDURE PERFORMED: Placement of a left radial arterial line. PREOPERATIVE DIAGNOSIS: Acute hypoxic respiratory failure, requiring intubation and mechanical ventilation. POSTOPERATIVE DIAGNOSIS: Acute hypoxic respiratory failure, requiring intubation and mechanical ventilation. ANESTHESIA USED: None deployed. DESCRIPTION OF PROCEDURE: The left wrist was prepared in a sterile fashion. Drapes were applied. The left radial artery was palpated, cannulated easily, and a guidewire was placed. A Cook catheter was inserted over the guidewire, and the guidewire was removed. Good blood flow, good waveform noted, no complications. Line was secured using 3-0 silk sutures. MMODL / IJN: [id number] /
--- NOTE | 2022-06-16 18:28 | OP ---
OPERATIVE REPORT PROCEDURE PERFORMED: Placement of right femoral triple-lumen catheter/central line. PREOPERATIVE DIAGNOSES: 1. Acute hypoxic respiratory failure secondary to sepsis. 2. Septic shock. 3. Escherichia coli bacteremia with pancytopenia. POSTOPERATIVE DIAGNOSES: 1. Acute hypoxic respiratory failure secondary to sepsis. 2. Septic shock. 3. Escherichia coli bacteremia with pancytopenia. ANESTHESIA USED: 2 mL of 1% lidocaine. DESCRIPTION OF PROCEDURE: The patient was placed in the supine position, the right groin was prepared in a sterile fashion, drapes were applied. The area of the groin was locally anesthetized with 2 mL of lidocaine, then the right femoral vein was easily cannulated with 1 attempt, and a guidewire was placed. The area around the guidewire was dilated, then a triple-lumen catheter was inserted over the guidewire, and the guidewire was removed. Good blood flow noted in the 3 different ports of the triple-lumen catheter. Line was secured using 3-0 silk sutures. Procedure was well tolerated. MMODL / IJN: [id number] /
[2022-06-16] MEDS ORDERED: Potassium Replacement Protocol 1 EACH MISC MISCELLANE PRN (18:38)
[2022-06-16] MEDS ORDERED: POTASSIUM BICARBONATE/CIT AC 20 MEQ TABLET.EFF NG-TUBE SCH (19:00)
[2022-06-16] MEDS ORDERED: VANCOMYCIN TROUGH DUE 1 EACH MISC MISCELLANE ONE (20:00)
[2022-06-16] MEDS: SENNOSIDES-DOCUSATE SODIUM 1 EACH TAB PO SCH (20:17)
--- NOTE | 2022-06-16 20:23 | P.PN ---
Subjective Progress Note Date: 06/16/22 Principal diagnosis: Septic Shock, Febrie Neutropenia, AML Respiratory distress worsening this am, Intubation per ICU. Patient is in REMISSION from his AML and requires Aggressive support care during this time Objective - Vital Signs Vital signs: Vital Signs Temp 98.4 F 06/16/22 12:00 Pulse 109 H 06/16/22 12:22 Resp 35 H 06/16/22 12:15 BP 94/54 06/16/22 10:00 Pulse Ox 87 L 06/16/22 12:15 FiO2 40 06/16/22 12:00 Intake & Output 06/15/22 06/16/22 06/16/22 18:59 06:59 18:59 Intake Total 2624 2417.819 826.749 Output Total 1812 1387 572 Balance 812 1030.819 254.749 Weight 132.4 kg 132.4 kg Intake: IV 1600 2400 750 ACETAMINOPHEN IV (For NPO 100 ) 1,000 mg In Empty Bag 1 bag @ 400 mls/hr IVPB ONCE ONE Rx#:[id number] ACETAMINOPHEN IV (For NPO 100 ) 1,000 mg In Empty Bag 1 bag @ 400 mls/hr IVPB Q6HR [facility] Rx#:[id number] Cefepime 2 gm In Sodium 200 100 100 Chloride 0.9% 100 ml @ 25 mls/hr IVPB Q8HR [facility] Rx# :[id number] Dextrose 5% in Water 1, 400 800 250 000 ml @ 50 mls/hr IV . Q23H [facility] with Sodium Bicarb (1 Meq/ml) 150 ml Rx#:[id number] Magnesium Sulfate-D5w Pmx 300 100 1 gm In Dextrose/Water 1 100ml.bag @ 100 mls/hr IVPB Q1H [facility] Rx#: [id number] Potassium Chloride 10 meq 100 300 In Water For Injection 1 100ml.bag @ 100 mls/hr IVPB Q1HR [facility] Rx#: [id number] Sodium Chloride 0.9% 1, 450 000 ml @ 150 mls/hr IV . Q6H40M [facility] Rx#:[id number] Sodium Chloride 0.9% 500 50 ml 500 ml @ 25 mls/hr IV .Q20H [facility] Rx#:[id number] Sodium Chloride 0.9% 500 1000 ml 500 ml @ 999 mls/hr IV .Q31M ONE Rx#:[id number] metroNIDAZOLE-NS PMX 500 200 100 100 mg In Saline 1 100ml.bag @ 100 mls/hr IVPB Q8H [facility] Rx#:[id number] Intake, IV Titration 17.819 76.749 Amount Dexmedetomidine/0.9% NaCl 17.819 17.764 (Pmx) 400 mcg In Empty Bag 1 bag @ 0.2 MCG/KG/HR 6.62 mls/hr IV .Q15H7M [facility] Rx#:[id number] propofoL 1,000 mg In 58.985 Empty Bag 1 bag @ 5 MCG/ KG/MIN 3.972 mls/hr IV . Q24H [facility] Rx#:[id number] Oral 250 Tube Feeding 200 Blood Product 574 Platelet Pheresis Pas 374 Psoralen Unit [id number] Rc Irr As1 Unit 200 [id number] Output: Urine 1810 1385 570 Stool 2 2 2 Other: Voiding Method Indwelling Catheter Indwelling Catheter Indwelling Catheter ABP, PAP, CO, CI - Last Documented Arterial Blood Pressure 79/52 - Exam Increased respirations Flushed HR Tachy Abdomen Soft NONDIST No rash Mechanical Intubation - Labs CBC & Chem 7: 06/16/22 17:00 06/16/22 17:00 Labs: Abnormal Lab Results - Last 24 Hours (Table) 06/15/22 06/15/22 06/15/22 Range/Units 12:42 13:14 13:14 WBC (3.8-10.6) k/uL RBC (4.30-5.90) m/uL Hgb (13.0-17.5) gm/dL Hct (39.0-53.0) % RDW (11.5-15.5) % Plt Count (150-450) k/uL APTT 34.9 H (22.0-30.0) sec Fibrinogen 778 H (200-500) mg/dL ABG pH (7.35-7.45) ABG pCO2 (35-45) mmHg ABG pO2 (83-108) mmHg ABG HCO3 (21-25) mmol/L ABG Total CO2 (19-24) mmol/L ABG O2 Saturation (94-97) % ABG Hematocrit (34.0-46.0) % Hemoglobin (13.0-17.5) gm/dL Chloride (98-107) mmol/L Carbon Dioxide (22-30) mmol/L BUN (9-20) mg/dL Glucose (74-99) mg/dL POC Glucose (mg/dL) (70-110) mg/dL Calcium (8.4-10.2) mg/dL AST (17-59) U/L ALT (4-49) U/L Lactate Dehydrogenase 756 H (313-618) U/L Total Protein (6.3-8.2) g/dL Albumin (3.5-5.0) g/dL Procalcitonin (0.02-0.09) ng/mL Ur Random Sodium <20 L (40-220) mmol/L 06/15/22 06/15/22 06/15/22 Range/Units 13:14 13:14 13:40 WBC 0.3 L* (3.8-10.6) k/uL RBC 2.53 L (4.30-5.90) m/uL Hgb 7.6 L (13.0-17.5) gm/dL Hct 21.6 L (39.0-53.0) % RDW 17.2 H (11.5-15.5) % Plt Count 11 L* (150-450) k/uL APTT (22.0-30.0) sec Fibrinogen (200-500) mg/dL ABG pH 7.46 H (7.35-7.45) ABG pCO2 24 L (35-45) mmHg ABG pO2 80 L (83-108) mmHg ABG HCO3 17 L (21-25) mmol/L ABG Total CO2 18 L (19-24) mmol/L ABG O2 Saturation 98.0 H (94-97) % ABG Hematocrit 23 L (34.0-46.0) % Hemoglobin 7.6 L (13.0-17.5) gm/dL Chloride 110 H (98-107) mmol/L Carbon Dioxide 14 L (22-30) mmol/L BUN 25 H (9-20) mg/dL Glucose 114 H (74-99) mg/dL POC Glucose (mg/dL) (70-110) mg/dL Calcium 7.3 L (8.4-10.2) mg/dL AST (17-59) U/L ALT (4-49) U/L Lactate Dehydrogenase (313-618) U/L Total Protein (6.3-8.2) g/dL Albumin (3.5-5.0) g/dL Procalcitonin (0.02-0.09) ng/mL Ur Random Sodium (40-220) mmol/L 06/16/22 06/16/22 06/16/22 Range/Units 02:43 02:43 02:43 WBC 0.4 L* (3.8-10.6) k/uL RBC 2.61 L (4.30-5.90) m/uL Hgb 7.5 L (13.0-17.5) gm/dL Hct 22.1 L (39.0-53.0) % RDW 16.9 H (11.5-15.5) % Plt Count 12 L* (150-450) k/uL APTT (22.0-30.0) sec Fibrinogen (200-500) mg/dL ABG pH (7.35-7.45) ABG pCO2 (35-45) mmHg ABG pO2 (83-108) mmHg ABG HCO3 (21-25) mmol/L ABG Total CO2 (19-24) mmol/L ABG O2 Saturation (94-97) % ABG Hematocrit (34.0-46.0) % Hemoglobin (13.0-17.5) gm/dL Chloride (98-107) mmol/L Carbon Dioxide 20 L (22-30) mmol/L BUN 23 H (9-20) mg/dL Glucose 111 H (74-99) mg/dL POC Glucose (mg/dL) (70-110) mg/dL Calcium 7.7 L (8.4-10.2) mg/dL AST 201 H (17-59) U/L ALT 185 H (4-49) U/L Lactate Dehydrogenase 928 H (313-618) U/L Total Protein 5.4 L (6.3-8.2) g/dL Albumin 3.0 L (3.5-5.0) g/dL Procalcitonin 33.10 H (0.02-0.09) ng/mL Ur Random Sodium (40-220) mmol/L 06/16/22 06/16/22 06/16/22 Range/Units 02:49 10:23 12:03 WBC (3.8-10.6) k/uL RBC (4.30-5.90) m/uL Hgb (13.0-17.5) gm/dL Hct (39.0-53.0) % RDW (11.5-15.5) % Plt Count (150-450) k/uL APTT (22.0-30.0) sec Fibrinogen (200-500) mg/dL ABG pH 7.34 L (7.35-7.45) ABG pCO2 (35-45) mmHg ABG pO2 160 H (83-108) mmHg ABG HCO3 (21-25) mmol/L ABG Total CO2 (19-24) mmol/L ABG O2 Saturation 98.5 H 99.8 H (94-97) % ABG Hematocrit 22 L 20 L* (34.0-46.0) % Hemoglobin 7.3 L 6.7 L* (13.0-17.5) gm/dL Chloride (98-107) mmol/L Carbon Dioxide (22-30) mmol/L BUN (9-20) mg/dL Glucose (74-99) mg/dL POC Glucose (mg/dL) 134 H (70-110) mg/dL Calcium (8.4-10.2) mg/dL AST (17-59) U/L ALT (4-49) U/L Lactate Dehydrogenase (313-618) U/L Total Protein (6.3-8.2) g/dL Albumin (3.5-5.0) g/dL Procalcitonin (0.02-0.09) ng/mL Ur Random Sodium (40-220) mmol/L Microbiology - Last 24 Hours (Table) 06/15/22 05:41 Blood Culture - Preliminary Blood No Growth after 24 hours 06/15/22 11:06 Stool Culture - Preliminary Stool 06/14/22 18:30 Urine Culture - Final Urine,Catheterized 06/14/22 09:32 Blood Culture Gram Stain - Preliminary Blood Assessment and Plan (1) Neutropenic fever Narrative/Plan: Dominguez Culture Bacteremia Positive less than 24 hours Gram Negative Bacilli Aggressive supportive care Discussed with primary team Transfuse irradiated only platelets <15 and PRBC <7 T-Max 102 ID Following Current Visit: Yes Status: Acute Priority: High Code(s): D70.9 - NEUTROPENIA, UNSPECIFIED; R50.81 - FEVER PRESENTING WITH CONDITIONS CLASSIFIED ELSEWHERE SNOMED Code(s): 080220539 (2) Pancytopenia Narrative/Plan: Transfuse irradited platelets and PRBC today Check DIC and monitor if fibrinogen low transfuse cryo Transfuse IRradiated Only Hemoglobin <7, PLT <15K Current Visit: Yes Status: Acute Code(s): D61.818 - OTHER PANCYTOPENIA SNOMED Code(s): 601629377 (3) AML (acute myelogenous leukemia) Narrative/Plan: Status Post 2nd Consolidation Granix ordered because of remission status, this may result in periphal blasts appearing on CBC, likely due to sepsis and granix and not leukemia. At this time risk verses benefit of GRANIX is needed with bacteremia and sepsis Current Visit: Yes Status: Chronic Priority: High Code(s): C92.00 - ACUTE MYELOBLASTIC LEUKEMIA, NOT HAVING ACHIEVED REMISSION SNOMED Code(s): 17437663 (4) Acute kidney insufficiency Narrative/Plan: Monitor tumor lysis Current Visit: Yes Status: Acute Code(s): N28.9 - DISORDER OF KIDNEY AND URETER, UNSPECIFIED SNOMED Code(s): 074695163 (5) Septic shock Narrative/Plan: Aggressive support Picc line removed Hypotensive Granix as above Agressive antibiotic support Aggressive respiratory support Current Visit: Yes Status: Acute Code(s): A41.9 - SEPSIS, UNSPECIFIED ORGANISM; R65.21 - SEVERE SEPSIS WITH SEPTIC SHOCK SNOMED Code(s): 96608721 Plan: Dr. Waller: I have completed the full history and physial and developed the above impression and plan, agree with dictation, dictated as a scribe
[2022-06-16] MEDS: FAMOTIDINE 20 MG TAB PO SCH (20:51)
[2022-06-16] MEDS ORDERED: CHLORHEXIDINE GLUCONATE 15 ML CUP MUCOUS MEM SCH (21:00)
[2022-06-17 00:09] LABS: Glucose,Whole Blood 133 mg/dL (70-110)
[2022-06-17] MEDS: IPRATROPIUM-ALBUTEROL 3 ML NEB INHALATION SCH (00:41)
[2022-06-17 01:02] VITALS: TEMP 99
[2022-06-17] MEDS: metroNIDAZOLE-NS PMX 500 MG in SALINE 1 100ML.BAG IVPB SCH (01:10)
[2022-06-17] MEDS: ARTIFICIAL TEARS-HYPROMELLOSE DROPS 15 ML BTL BOTH EYES SCH (01:11)
[2022-06-17] MEDS: CEFEPIME 2 GM in SODIUM CHLORIDE 0.9% 100 ML IVPB SCH (01:11)
[2022-06-17] MEDS: CISATRACURIUM 200 MG in SODIUM CHLORIDE 0.9% 180 ML IV SCH (01:51)
[2022-06-17 03:05] VITALS: PULSE 113
[2022-06-17] MEDS: SODIUM CHLORIDE 0.9% 500 ML 500 ML IV SCH (03:41)
--- NOTE | 2022-06-17 15:41 | P.DS ---
Providers Date of admission: 06/14/22 12:29 Expected date of discharge: 06/17/22 Attending physician: Chadd Hoyt MD Consults: 06/14/22 12:29 Consult Physician Urgent Consulting Provider: Ganesh Keith Consult Reason/Comments: AML Do you want consulting provider notified?: Yes 06/14/22 14:22 Consult Physician Urgent Consulting Provider: Mary Singer Consult Reason/Comments: Neutropenic fever Do you want consulting provider notified?: Yes 06/14/22 16:12 Consult Physician Urgent Consulting Provider: Blanca Flores Consult Reason/Comments: septic shock, critical care management Do you want consulting provider notified?: Yes 06/15/22 10:06 Consult Physician Routine Consulting Provider: Nils Jordan Consult Reason/Comments: Cardiomyopathy (septic vs chemo induced) Do you want consulting provider notified?: Yes Primary care physician: [facility] Course: Septic shock Acute kidney injury Acute Systolic Heart Failure, EF 35% AML Pancytopenia 27-year-old man with a medical history of AML currently undergoing consolidation therapy, recurrent neutropenic fever presented with fevers, low blood count. In the emergency room, patient was noted to be febrile to a T-max of 101, blood pressures were low at 87/39 and heart rates were high at 150, 97% on room air. Initial CBC demonstrated a white blood cell count 0.4, platelet count of 3, hemoglobin of 8.1. He also had a sodium of 133, chloride of 97, potassium 3.4, bicarb of 20, anion gap to 16, elevated creatinine to 1.56. His liver function tests were unremarkable. His lactic acid was 3.3. His pro calcitonin is 38.4. CRP was 24. UA showed 2+ protein, 1+ ketones, trace glucose, 6 red blood cells, 9 white blood cells, 4 hyaline casts. Influenza A/B, RSV, Covid were all negative. Patient had a 2 view chest x-ray which was pending read. Patient was treated with 2 L of IV fluid bolus, vancomycin, cefepime, then admitted to the cardiac stepdown unit for further management. Orders were placed for a unit of platelets. While being monitored on the cardiac stepdown unit, he was noted to be again hypotensive with increasing heart rates, 85/40, heart rate 128. Patient was up slightly bolused an additional 2 L of fluid, however, his blood pressure did not respond. Repeat CBC done prior to delivery of platelets showed a white blood cell count 0.1, hemoglobin of 6.7, platelets of 3. At this point a unit of packed red blood cells were ordered as well. The case was discussed with infectious disease, oncology, intensive carepatient was subsequently transferred to the ICU for likely pressor requirement. His PICC line was removed due to suspicion of PICC line infection, and the catheter tip was sent for culture as discussed with infectious disease and oncology. Patient's echocardiogram returned with ejection fraction 35% and patient received significant amount of blood products as well. Patient then developed respiratory failure and ultimately required intubation. He required large amounts of sedation as well as paralytic nor to comply with his breathing requirement. Ultimately, the decision was made to transfer the patient Mike Nilda marquez at the request of the family, with accepting physician being Dr. Garcia. Patient left today on 06/17 in the morning, prior to my arrival. Patient Condition at Discharge: Serious Plan - Discharge Summary Discharge Rx Participant: No New Discharge Prescriptions: No Action ALPRAZolam [Xanax] 0.5 mg PO TID PRN tab PRN Reason: Anxiety hydrOXYzine HCL [Atarax] 25 mg PO QID PRN #45 tab PRN Reason: Itching bisacodyL [Dulcolax] 5 mg PO DAILY PRN tab PRN Reason: Constipation Mag Hydrox/Al Hydrox/Simeth [Maalox] 30 ml PO TID ml prednisoLONE ACETATE 1% OPHTH [Pred Forte 1%] 1 drops BOTH EYES QID ml Cholecalciferol [Vitamin D3 (125 Mcg = 5000 Iu)] 250 mcg PO DAILY #30 tab Ciprofloxacin HCl [Cipro] 500 mg PO DAILY 30 Days #30 tab Acetaminophen Tab [Tylenol] 650 mg PO Q6HR PRN tab PRN Reason: Fever And/ Or Pain Acyclovir [Zovirax] 400 mg PO BID #60 tablet Sennosides-Docusate Sodium [Senokot-S] 1 tab PO HS Famotidine [Pepcid] 20 mg PO HS tab Lidocaine Viscous 2% [Xylocaine Viscous] 30 ml PO TID ml Discharge Medication List ALPRAZolam [Xanax] 0.5 mg PO TID PRN tab 03/27/22 [Rx] Cholecalciferol [Vitamin D3 (125 Mcg = 5000 Iu)] 250 mcg PO DAILY #30 tab 03/27/22 [Rx] Acetaminophen Tab [Tylenol] 650 mg PO Q6HR PRN tab 04/29/22 [Rx] Acyclovir [Zovirax] 400 mg PO BID #60 tablet 04/29/22 [Rx] Ciprofloxacin HCl [Cipro] 500 mg PO DAILY 30 Days #30 tab 04/29/22 [Rx] bisacodyL [Dulcolax] 5 mg PO DAILY PRN tab 04/29/22 [Rx] hydrOXYzine HCL [Atarax] 25 mg PO QID PRN #45 tab 04/29/22 [Rx] Sennosides-Docusate Sodium [Senokot-S] 1 tab PO HS 05/07/22 [History] Famotidine [Pepcid] 20 mg PO HS tab 06/03/22 [Rx] Lidocaine Viscous 2% [Xylocaine Viscous] 30 ml PO TID ml 06/03/22 [Rx] Mag Hydrox/Al Hydrox/Simeth [Maalox] 30 ml PO TID ml 06/03/22 [Rx] prednisoLONE ACETATE 1% OPHTH [Pred Forte 1%] 1 drops BOTH EYES QID ml 06/03/22 [Rx] Follow up Appointment(s)/Referral(s): Usama Camejo MD [Primary Care Provider] - 1-2 days Discharge Disposition: DC/[facility] W/[facility] IP READ
== END 2022-06-17 03:56 | disposition short-term general hospital (02) | DRG 314 ==
LOC: EC 08:09 → 5NMEDONC 12:29 → 3SCARD 13:09 → 2SICU 17:46
PROVIDERS: ADMIT Internal Medicine; ATTEND Internal Medicine
PROC: 30233R1 Transfusion of Nonautologous Platelets into Peripheral Vein, Percutaneous Approach (ICD-10-PCS; 2022-06-14)
PROC: 30233N1 Transfusion of Nonautologous Red Blood Cells into Peripheral Vein, Percutaneous Approach (ICD-10-PCS; 2022-06-14)
PROC: 3E033XZ Introduction of Vasopressor into Peripheral Vein, Percutaneous Approach (ICD-10-PCS; 2022-06-14)
PROC: 05HF33Z Insertion of Infusion Device into Left Cephalic Vein, Percutaneous Approach (ICD-10-PCS; 2022-06-15)
PROC: 4A133J1 Monitoring of Arterial Pulse, Peripheral, Percutaneous Approach (ICD-10-PCS; principal; 2022-06-16)
PROC: 3E043XZ Introduction of Vasopressor into Central Vein, Percutaneous Approach (ICD-10-PCS; principal; 2022-06-16)
PROC: 4A133B1 Monitoring of Arterial Pressure, Peripheral, Percutaneous Approach (ICD-10-PCS; principal; 2022-06-16)
PROC: 3E0G76Z Introduction of Nutritional Substance into Upper GI, Via Natural or Artificial Opening (ICD-10-PCS; principal; 2022-06-16)
PROC: 0BH17EZ Insertion of Endotracheal Airway into Trachea, Via Natural or Artificial Opening (ICD-10-PCS; principal; 2022-06-16)
PROC: 03HY32Z Insertion of Monitoring Device into Upper Artery, Percutaneous Approach (ICD-10-PCS; principal; 2022-06-16)
PROC: 06HY33Z Insertion of Infusion Device into Lower Vein, Percutaneous Approach (ICD-10-PCS; principal; 2022-06-16)
PROC: 5A1935Z Respiratory Ventilation, Less than 24 Consecutive Hours (ICD-10-PCS; principal; 2022-06-16)
PROC: 0D9670Z Drainage of Stomach with Drainage Device, Via Natural or Artificial Opening (ICD-10-PCS; principal; 2022-06-16)
DX: T80.211A Bloodstream infection due to central venous catheter, initial encounter (principal); A41.51 Sepsis due to Escherichia coli [E. coli]; R65.21 Severe sepsis with septic shock; J96.01 Acute respiratory failure with hypoxia; D61.810 Antineoplastic chemotherapy induced pancytopenia; I50.21 Acute systolic (congestive) heart failure; Z68.41 Body mass index [BMI] 40.0-44.9, adult; J98.11 Atelectasis; E87.2 Acidosis; N17.9 Acute kidney failure, unspecified; I42.7 Cardiomyopathy due to drug and external agent; E87.4 Mixed disorder of acid-base balance; D84.9 Immunodeficiency, unspecified; C92.01 Acute myeloblastic leukemia, in remission; D70.9 Neutropenia, unspecified; D69.6 Thrombocytopenia, unspecified; I25.5 Ischemic cardiomyopathy; F22 Delusional disorders; T80.89XA Other complications following infusion, transfusion and therapeutic injection, initial encounter; R50.81 Fever presenting with conditions classified elsewhere; Z20.822 Contact with and (suspected) exposure to COVID-19; F41.9 Anxiety disorder, unspecified; E66.9 Obesity, unspecified; T45.1X5A Adverse effect of antineoplastic and immunosuppressive drugs, initial encounter; R77.8 Other specified abnormalities of plasma proteins; R19.7 Diarrhea, unspecified; Z86.16 Personal history of COVID-19; Z79.899 Other long term (current) drug therapy; Z71.3 Dietary counseling and surveillance; Q90.9 Down syndrome, unspecified; Z87.01 Personal history of pneumonia (recurrent)
CPT/HCPCS: 36410; 36415; 36600; 71045; 71046; 71275; 76770; 76937; 80048; 80053; 80076; 81001; 82306; 82570; 82805; 83605; 83615; 83735; 83880; 84100; 84132; 84145; 84156; 84300; 84443; 84484; 84550; 85025; 85027; 85384; 85610; 85730; 86140; 86850; 86880; 86900; 86901; 86920; 87040; 87045; 87046; 87070; 87077; 87086; 87186; 87324; 87636; 93308; 94002; 94003; 94640; 96365; 96366; 96367; 99291

== ENCOUNTER 2022-12-13 18:51 | Emergency (ER) | payer OTHER ==
[2022-12-13 18:59] VITALS: PULSE 76; RESP 20
[2022-12-13] MEDS ORDERED: ACETAMINOPHEN TAB 500 MG TAB PO STA (19:13)
[2022-12-13] MEDS ORDERED: MORPHINE SULFATE 4 MG/ML SYRINGE IV STA (19:13)
[2022-12-13] MEDS ORDERED: SODIUM CHLORIDE 0.9% 1,000 ML IV STA ×2 (19:13)
[2022-12-13] MEDS ORDERED: ONDANSETRON 4 MG/2 ML VIAL IVP STA (19:13)
--- NOTE | 2022-12-13 19:22 | ED ---
General Adult HPI - General Source: patient Mode of arrival: ambulatory Limitations: no limitations <Hayden Godoy - Last Filed: 12/13/22 21:06> <Melissa Hogan - Last Filed: 12/13/22 22:32> - General Chief complaint: Headache Stated complaint: back pain/abd pain/sob chemo Time Seen by Provider: 12/13/22 19:01 - History of Present Illness Initial comments: This 27-year-old male presents with complaint of nausea and vomiting just started today. He also had one episode of diarrhea. He also is complaining of a headache, neck pain, and back pain. He states that he is under treatment for leukemia through [facility]. His last chemotherapy was 2 weeks ago. He had blood work done 2 days ago which showed that he has pancytopenia. His hemoglobin was down to 6.6. He was transfused 1 unit of blood. He apparently is being evaluated for a stem cell transplant in the near future. He denies any fevers or chills. He has some mild chronic shortness breath but there is no cough or production. He did at one point during treatment developed congestive heart failure but his ejection fraction was 40-50% this past August. His mother is present and gives most of history. No other complaints or modifying factors. He has had almost no food intake today. He has had little fluid intake today. Mother relates that he initially was diagnosed with the leukemia in February 2022. She also relates that he has an appointment to follow up with his oncologist tomorrow to discuss possible stem cell transplant. (Hayden Godoy) - Related Data Home Medications Medication Instructions Recorded Confirmed Cholecalciferol [Vitamin D3 (25 50 mcg PO DAILY 11/20/22 12/13/22 Mcg = 1000 Iu)] Metoprolol Succinate (ER) [Toprol 25 mg PO HS 11/20/22 12/13/22 Xl] Metoprolol Succinate (ER) [Toprol 100 mg PO DAILY 11/20/22 12/13/22 Xl] Venetoclax [Venclexta] 400 mg PO DAILY 11/20/22 12/13/22 allopurinoL 300 mg PO DAILY 11/20/22 12/13/22 lisinopriL [Zestril] 10 mg PO DAILY 11/20/22 12/13/22 ondansetron HCL [Ondansetron HCl] 8 mg PO Q6H PRN 11/20/22 12/13/22 Acyclovir [Zovirax] 400 mg PO BID 11/24/22 12/13/22 Doxycycline Hyclate 100 mg PO BID 11/24/22 12/13/22 Fluconazole [Diflucan] 100 mg PO DAILY 11/24/22 12/13/22 Spironolactone 25 mg PO DAILY 12/05/22 12/13/22 ALPRAZolam [Xanax] 0.5 mg PO Q8H PRN 12/13/22 12/13/22 Omeprazole 20 mg PO DAILY 12/13/22 12/13/22 Previous Rx's Medication Instructions Recorded methocarbamoL [Robaxin-750] 750 mg PO QID #30 tab 12/13/22 Allergies Allergy/AdvReac Type Severity Reaction Status Date / Time No Known Allergies Allergy Verified 12/13/22 20:09 Review of Systems ROS Other: All systems not noted in ROS Statement are negative. <Hayden Godoy - Last Filed: 12/13/22 21:06> ROS Other: All systems not noted in ROS Statement are negative. <Melissa Hogan - Last Filed: 12/13/22 22:32> ROS Statement: Those systems with pertinent positive or pertinent negative responses have been documented in the HPI. Past Medical History Past Medical History: Cancer, Hypertension Additional Past Medical History / Comment(s): severe pancytopenia AML, leukocytosis/thrombocytopenia,coagulopathy/neuropenic fever, covid/pneumonia, anemia with blood transfusions. History of Any Multi-Drug Resistant Organisms: None Reported Past Surgical History: Adenoidectomy, Tonsillectomy Additional Past Surgical History / Comment(s): BMAs, picc line placed-SINCE REMOVED, bone marrow biopsy Past Anesthesia/Blood Transfusion Reactions: No Reported Reaction Past Psychological History: Anxiety Smoking Status: Never smoker Past Alcohol Use History: None Reported Past Drug Use History: None Reported - Past Family History Mother Family Medical History: Cancer Additional Family Medical History / Comment(s): breast CA Father Family Medical History: No Reported History <Hayden Godoy - Last Filed: 12/13/22 21:06> General Exam Limitations: no limitations <Hayden Godoy - Last Filed: 12/13/22 21:06> - General Exam Comments Initial Comments: GENERAL: The patient is well nourished and well hydrated. VITAL SIGNS: Heart rate, blood pressure, respiratory rate reviewed as recorded i n nurse's notes. EYES: Pupils are round and reactive. Extraocular movements are intact. No conjunctival / lid redness or swelling. ENT: No external evidence of injury, swelling, or ecchymosis. Airway is patent. Throat is clear. NECK: Nontender. No swelling or evidence of injury. No subcutaneous emphysema. Trachea is midline. No thyroid mass. HEART: Regular rate and rhythm. Good peripheral pulses. LUNGS/CHEST: Breath sounds clear and equal bilaterally. No rales, rhonchi, or wheezes. No ecchymosis, subcutaneous emphysema, or tenderness. ABDOMEN: Abdomen soft without tenderness. No palpable masses or organomegaly. No peritoneal signs. No abdominal wall swelling or ecchymosis. EXTREMITIES: No extremity tenderness. Normal muscle tone and function. No thoracolumbar tenderness. NEUROLOGIC: Sensation is grossly intact. Cranial nerve exam reveals face is symmetrical, tongue is midline, speech is clear. SKIN: No abrasions or ecchymosis is noted. No induration or masses noted. PSYCHIATRIC: Alert and oriented. Appropriate behavior and judgment. (Hayden Godoy) Course Vital Signs 12/13/22 18:53 Temperature 98.0 F Pulse Rate 76 Respiratory 20 Rate Blood Pressure 133/75 O2 Sat by Pulse 98 Oximetry Medical Decision Making - Lab Data Result diagrams: 12/13/22 19:20 12/13/22 19:20 <Hayden Godoy - Last Filed: 12/13/22 21:06> - Lab Data Result diagrams: 12/13/22 19:20 12/13/22 19:20 <Melissa Hogan - Last Filed: 12/13/22 22:32> - Medical Decision Making Was pt. sent in by a medical professional or institution (, PA, SAP DATA ANALYST, urgent care, hospital, or half-way...) When possible be specific @ -[No] Did you speak to anyone other than the patient for history (EMS, parent, family, police, friend...)? What history was obtained from this source @ -The patient's mother is at bedside and essentially gives all the history with some input from patient. Did you review nursing and triage notes (agree or disagree)? Why? @ -[I reviewed and agree with nursing and triage notes] Were old charts reviewed (outside hosp., previous admission, EMS record, old EKG, old radiological studies, urgent care reports/EKG's, half-way records)? Report findings @ -Old records were reviewed in regards to his past medical history. He was admitted and diagnosed with septic shock back in the fall of 2021 and transferred to [facility]. Differential Diagnosis (chest pain, altered mental status, abdominal pain women, abdominal pain men, vaginal bleeding, weakness, fever, dyspnea, syncope, headache, dizziness, GI bleed, back pain, seizure, CVA, palpatations, mental health, musculoskeletal)? @ -Neutropenia, pancytopenia, AML, neck pain, back pain, nausea and vomiting EKG interpreted by me (3pts min.). @ -EKG is interpreted by myself and does show a normal sinus rhythm at a rate of 80. There is no acute ST or T-wave changes identified. The OR intervals 145, QRS duration is 96, and QTC intervals 445. X-rays interpreted by me (1pt min.). @ -Chest x-ray interpreted by myself and radiology and does not show any acute process. CT interpreted by me (1pt min.). @ -[None done] U/S interpreted by me (1pt. min.). @ -[None done] What testing was considered but not performed or refused? (CT, X-rays, U/S, labs)? Why? @ -[None] What meds were considered but not given or refused? Why? @ -The patient initially refuses morphine but eventually does agree. He refuses Tylenol. Did you discuss the management of the patient with other professionals (pr ofessionals i.e. , PA, SAP DATA ANALYST, lab, RT, psych nurse, rn social work, ingredient mixer, teacher, risk officer, community case manager)? Give summary @ -The oncologist has been paged and we're currently awaiting their call back. Case will be discussed with them when they didn't call back. Was smoking cessation discussed for >3mins.? @ -[No] Was critical care preformed (if so, how long)? @ -[No] Were there social determinants of health that impacted care today? How? (Homelessness, low income, unemployed, alcoholism, drug addiction, transportation, low edu. Level, literacy, decrease access to med. care, detention, rehab)? @ -[No] Was there de-escalation of care discussed even if they declined (Discuss DNR or withdrawal of care, Hospice)? DNR status @ -[No] What co-morbidities impacted this encounter? (DM, HTN, Smoking, COPD, CAD, Cancer, CVA, ARF, Chemo, Hep., AIDS, mental health diagnosis, sleep apnea, morbid obesity)? @ -AML, congestive heart failure Was patient admitted / discharged? Hospital course, mention meds given and route, prescriptions, significant lab abnormalities, going to OR and other pertinent info. @ -The patient was seen and examined. All diagnostics are reviewed. The lab does call and relate that his white blood cell count is quite low at 1.2. His neutrophils are extremely low and almost nonexistent. His platelets are low at 21. His hemoglobin is 8.3 which appears to be improved as compared to previous which was approximately 6.4. The patient did receive a transfusion of 1 unit of of packed red blood cells 2 days ago. The exact cause of his current symptomatology is not definitively determined. His viral studies are negative. Remainder of laboratories also to within normal limits. No definite infection is identified at this time. Case will be discussed with oncology to determine their recommendations. Case is eventually discussed with Dr. Sagar nixon oncology and he recommends completing a computed tomography scan of the head and neck to make sure there is no acute abnormalities especially in light of his low platelets and if this is okay that he can be discharged home with symptomatic treatment and follow up tomorrow with his partner. Undiagnosed new problem with uncertain prognosis? @ -[No] Drug Therapy requiring intensive monitoring for toxicity (Heparin, Nitro, Insulin, Cardizem)? @ -[No] Were any procedures done? @ -[No] Diagnosis/symptom? @ -Neutropenia, pancytopenia, nausea and vomiting, neck and back pain Acute, or Chronic, or Acute on Chronic? @ -Acute and chronic Uncomplicated (without systemic symptoms) or Complicated (systemic symptoms)? @ -Uncomplicated Side effects of treatment? @ -[No] Exacerbation, Progression, or Severe Exacerbation? @ -Exacerbation Poses a threat to life or bodily function? How? (Chest pain, [place], [place], pneumonia, PE, COPD, DKA, ARF, appy, cholecystitis, CVA, Diverticulitis, Homicidal, Suicidal, threat to staff... and all critical care pts) @ -[No] (Hayden Godoy) - Lab Data Lab Results 12/13/22 12/13/22 12/13/22 Range/Units 19:20 19:20 19:20 WBC 1.2 L* (3.8-10.6) k/uL RBC 2.88 L (4.30-5.90) m/uL Hgb 8.3 L (13.0-17.5) gm/dL Hct 23.9 L (39.0-53.0) % MCV 83.3 (80.0-100.0) fL MCH 29.0 (25.0-35.0) pg MCHC 34.8 (31.0-37.0) g/dL RDW 17.3 H (11.5-15.5) % Plt Count 21 L (150-450) k/uL MPV 11.6 Neutrophils % (Manual) 6 % Lymphocytes % (Manual) 94 % Neutrophils # SAP DATA ANALYST Neutrophils # (Manual) 0.07 L* (1.3-7.7) k/uL Lymphocytes # (Manual) 1.13 (1.0-4.8) k/uL Nucleated RBCs 0 (0-0) /100 WBC Manual Slide Review Performed Polychromasia Present Poikilocytosis Slight Anisocytosis Slight PT 10.0 (9.0-12.0) sec INR 0.9 (<1.2) APTT 22.4 (22.0-30.0) sec Sodium 137 (137-145) mmol/L Potassium 4.0 (3.5-5.1) mmol/L Chloride 103 (98-107) mmol/L Carbon Dioxide 23 (22-30) mmol/L Anion Gap 11 mmol/L BUN 11 (9-20) mg/dL Creatinine 0.72 (0.66-1.25) mg/dL Est GFR (CKD-EPI)AfAm >90 (>60 ml/min/1.73 sqM) Est GFR (CKD-EPI)NonAf >90 (>60 ml/min/1.73 sqM) Glucose 115 H (74-99) mg/dL Calcium 9.1 (8.4-10.2) mg/dL Phosphorus 4.7 H (2.5-4.5) mg/dL Magnesium 1.8 (1.6-2.3) mg/dL Total Bilirubin 1.1 (0.2-1.3) mg/dL AST 25 (17-59) U/L ALT 45 (4-49) U/L Alkaline Phosphatase 103 (38-126) U/L Troponin I (0.000-0.034) ng/mL Total Protein 7.3 (6.3-8.2) g/dL Albumin 4.6 (3.5-5.0) g/dL TSH 0.795 (0.465-4.680) mIU/L Influenza Type A (PCR) (Not Detectd) Influenza Type B (PCR) (Not Detectd) RSV (PCR) (Not Detectd) SARS-CoV-2 (PCR) (Not Detectd) 12/13/22 12/13/22 Range/Units 19:20 19:20 WBC (3.8-10.6) k/uL RBC (4.30-5.90) m/uL Hgb (13.0-17.5) gm/dL Hct (39.0-53.0) % MCV (80.0-100.0) fL MCH (25.0-35.0) pg MCHC (31.0-37.0) g/dL RDW (11.5-15.5) % Plt Count (150-450) k/uL MPV Neutrophils % (Manual) % Lymphocytes % (Manual) % Neutrophils # Neutrophils # (Manual) (1.3-7.7) k/uL Lymphocytes # (Manual) (1.0-4.8) k/uL Nucleated RBCs (0-0) /100 WBC Manual Slide Review Polychromasia Poikilocytosis Anisocytosis PT (9.0-12.0) sec INR (<1.2) APTT (22.0-30.0) sec Sodium (137-145) mmol/L Potassium (3.5-5.1) mmol/L Chloride (98-107) mmol/L Carbon Dioxide (22-30) mmol/L Anion Gap mmol/L BUN (9-20) mg/dL Creatinine (0.66-1.25) mg/dL Est GFR (CKD-EPI)AfAm (>60 ml/min/1.73 sqM) Est GFR (CKD-EPI)NonAf (>60 ml/min/1.73 sqM) Glucose (74-99) mg/dL Calcium (8.4-10.2) mg/dL Phosphorus (2.5-4.5) mg/dL Magnesium (1.6-2.3) mg/dL Total Bilirubin (0.2-1.3) mg/dL AST (17-59) U/L ALT (4-49) U/L Alkaline Phosphatase (38-126) U/L Troponin I <0.012 (0.000-0.034) ng/mL Total Protein (6.3-8.2) g/dL Albumin (3.5-5.0) g/dL TSH (0.465-4.680) mIU/L Influenza Type A (PCR) Not Detected (Not Detectd) Influenza Type B (PCR) Not Detected (Not Detectd) RSV (PCR) Not Detected (Not Detectd) SARS-CoV-2 (PCR) Not Detected (Not Detectd) Disposition <Hayden Godoy - Last Filed: 12/13/22 21:06> Is patient prescribed a controlled substance at d/c from ED?: No Time of Disposition: 22:31 <Melissa Hogan - Last Filed: 12/13/22 22:32> Clinical Impression: AML (acute myelogenous leukemia), Pancytopenia, Nausea and vomiting, Diarrhea, Neck pain, Back pain, Neutropenia Disposition: HOME SELF-CARE Condition: Stable Instructions (If sedation given, give patient instructions): Acute Headache (ED) Additional Instructions: Follow-up at your scheduled appointment. Take Tylenol and the muscle relaxer. Return for any new or worsening symptoms Prescriptions: methocarbamoL [Robaxin-750] 750 mg PO QID #30 tab Referrals: Usama Camejo MD [Primary Care Provider] - 1-2 days
[2022-12-13 19:48] LABS: Anisocytosis Slight; HCT 23.9 % (39.0-53.0); HGB 8.3 gm/dL (13.0-17.5); MCHC 34.8 g/dL (31.0-37.0); MCV 83.3 fL (80.0-100.0); Mean Platelet Volume 11.6; Poikilocytosis Slight; RBC 2.88 m/uL (4.30-5.90); RDW 17.3 % (11.5-15.5)
[2022-12-13 19:52] LABS: WBC 1.2 k/uL (3.8-10.6)
[2022-12-13 19:56] LABS: INR 0.9 (<1.2); Partial Thromboplastin Time 22.4 sec (22.0-30.0)
[2022-12-13 20:06] LABS: ALT 45 U/L (4-49); AST 25 U/L (17-59); African American GFR (CKD) >90 (>60 ml/min/1.73 sqM); Albumin 4.6 g/dL (3.5-5.0); Alkaline Phosphatase 103 U/L (38-126); Anion Gap 11 mmol/L; Blood Urea Nitrogen 11 mg/dL (9-20); Calcium 9.1 mg/dL (8.4-10.2); Carbon Dioxide 23 mmol/L (22-30); Chloride 103 mmol/L (98-107); Glucose 115 mg/dL (74-99); Magnesium 1.8 mg/dL (1.6-2.3); Non-African American GFR(CKD) >90 (>60 ml/min/1.73 sqM); Phosphorus 4.7 mg/dL (2.5-4.5); Sodium 137 mmol/L (137-145); Total Bilirubin 1.1 mg/dL (0.2-1.3); Total Protein 7.3 g/dL (6.3-8.2)
[2022-12-13 20:19] LABS: Polychromasia Present
--- NOTE | 2022-12-13 20:24 | XR ---
EXAMINATION TYPE: XR chest 2V DATE OF EXAM: 12/13/2022 8:10 PM COMPARISON: Chest radiographs from 06/16/2022 TECHNIQUE: XR chest 2V Frontal and lateral views of the chest. CLINICAL INDICATION:Male, 27 years old with history of Weakness; FINDINGS: Lungs/Pleura: There is no evidence of pleural effusion, focal consolidation, or pneumothorax. Pulmonary vascularity: Unremarkable. Heart/mediastinum: Cardiomediastinal silhouette is unremarkable. Musculoskeletal: No acute osseous pathology. IMPRESSION: No acute cardiopulmonary disease/process. No significant change from prior.
[2022-12-13 20:29] LABS: Neutrophils % (M) 6 %
[2022-12-13 20:30] LABS: Lymphocytes # (M) 1.13 k/uL (1.0-4.8); Nucleated Red Blood Cells 0 /100 WBC (0-0); Total Cells Counted 100
[2022-12-13 20:32] LABS: Platelet Count 21 k/uL (150-450)
[2022-12-13 20:37] LABS: Neutrophils # (M) 0.07 k/uL (1.3-7.7)
--- NOTE | 2022-12-13 21:55 | CT ---
EXAMINATION TYPE: CT brain cspine wo con CT DLP: 1739.9 mGycm, Automated exposure control for dose reduction was used. DATE OF EXAM: 12/13/2022 9:31 PM COMPARISON: 03/12/2022 CLINICAL INDICATION:Male, 27 years old with history of headache and neck pain; headache patient has l eukemia TECHNIQUE: Brain: Multiple axial CT images of the brain were obtained without IV contrast. Cspine: Axial CT images from the skull base to the inferior aspect of T2 we obtained without intraven ous contrast. Coronal and sagittal reformatted images were also reviewed. FINDINGS: Brain: Extra-axial spaces: No abnormal extra-axial fluid collections. Ventricular system: Within normal limits Cerebral parenchyma: No acute intraparenchymal hemorrhage or mass effect. The carlisle-white junction is well differentiated. Cerebellum: Unremarkable. Mass effect: No evidence of midline shift. Intracranial vasculature: unremarkable Soft tissues: Normal. Calvarium/osseous structures: No depressed skull fracture. Paranasal sinuses and mastoid air cells: Mild scattered mucosal thickening and or secretions. Trace b ilateral mastoid air cell effusions. Visualized orbits: Orbital contents are intact. Cervical spine: Fracture: None. Osseous structures: Multilevel degenerative disc disease changes with endplate spurring and disc oste ophyte complex's. Vertebral alignment: Within normal limits. Spinal canal/Neural Foramina: No evidence of significant spinal canal narrowing. No evidence for sign ificant neural foraminal stenosis. Neck soft tissues: Prevertebral soft tissues are within normal limits. Other: The airway is patent. The lung apices are clear. IMPRESSION: 1. No acute intracranial process. 2. No evidence of cervical spine fracture. 3. Mild multilevel degenerative disc disease. 4. Bilateral mastoid air cell effusions correlate for mastoiditis.
[2022-12-13 22:28] VITALS: BP 138/67; TEMP 99.7
== END 2022-12-13 23:03 | disposition home or self-care (01) ==
LOC: EC 18:51
DX: C92.00 Acute myeloblastic leukemia, not having achieved remission (principal); D61.818 Other pancytopenia; D70.9 Neutropenia, unspecified; I10 Essential (primary) hypertension; Z20.822 Contact with and (suspected) exposure to COVID-19; Z90.89 Acquired absence of other organs; Z79.899 Other long term (current) drug therapy; Z86.16 Personal history of COVID-19
CPT/HCPCS: 96361 ×2; 96374 ×2; 96375 ×2; 99285 ×2; 36430; 36415; 93005; 80053; 83735; 84100; 84443; 84484; 85025; 85610; 85730; 87636; 71046; 72125; 70450; J2270; J2405

== ENCOUNTER → 2023-01-12 | Day surgery (SDC) | payer OTHER ==
[2023-01-10 10:14] VITALS: BMI 39.9
[~2023-01-12] MED LIST changes: +LACTATED RINGERS 1,000 ML IV SCH; +MIDAZOLAM 2 MG/2 ML VIAL ONE; +PROPOFOL 10 MG/ML 20 ML VIAL IV ONE; -SALT AND SODA MOUTHWASH 1,000 ML PO PRN; +fentaNYL (PF) 50 MCG/ML 2 ML AMP ONE
[2023-01-12 06:48] VITALS: TEMP 97.4
[2023-01-12 07:41] VITALS: RESP 16
[2023-01-12 07:48] VITALS: BP 124/67; PULSE 81
[2023-01-12 07:51] LABS: Anisocytosis Slight; Basophils % (A) 0 %; Eosinophils % (A) 1 %; HGB 8.2 gm/dL (13.0-17.5); Lymphocytes # (A) 1.8 k/uL (1.0-4.8); Lymphocytes % (A) 89 %; MCH 29.9 pg (25.0-35.0); MCHC 35.9 g/dL (31.0-37.0); MCV 83.4 fL (80.0-100.0); Mean Platelet Volume 9.5; Monocytes % (A) 2 %; Neutrophils % (A) 7 %; RBC 2.76 m/uL (4.30-5.90); RDW 18.3 % (11.5-15.5)
[2023-01-12 08:01] LABS: Reticulocyte % 3.4 % (0.5-2.0)
[2023-01-12 08:26] LABS: Platelet Count 55 k/uL (150-450)
[2023-01-12 08:29] LABS: Neutrophils # (A) 0.1 k/uL (1.3-7.7)
--- NOTE | 2023-01-12 08:37 | OP ---
OPERATIVE REPORT DATE OF SERVICE : 01/12/2023 PREOPERATIVE DIAGNOSES: AML. POSTOPERATIVE DIAGNOSIS: AML. PROCEDURE PERFORMED: Bone marrow aspirate and biopsy site, right iliac crest. ANESTHESIA: Local with IV systemic sedation. DESCRIPTION OF PROCEDURE: Utilizing sterile technique, the skin overlying the right iliac crest was prepared with Betadine and alcohol. After adequate sterile draping, systemic sedation and local anesthesia with 1% lidocaine size 11 4-inch Jamshidi needle was utilized to access the periosteum with relative ease. A total of 18 mL of aspirate as well as 1 cm bone core biopsies were obtained. The patient tolerated the procedure very well. There was no immediate procedure related complication. TOTAL BLOOD LOSS: Less than 1 mL. Results pending. MMODL / IJN: [id number] /
== END ==
LOC: OR 06:09
PROVIDERS: ATTEND Internal Medicine Hematology & Oncology
DX: C95.00 Acute leukemia of unspecified cell type not having achieved remission (principal)
CPT/HCPCS: 85025; 85045; 38222; J2250; J3010; J2704